=== PATIENT | male | born 1975 ===

== ENCOUNTER 2016-10-02 10:22 | Emergency (ER) | payer BC ==
[2016-10-02] MEDS ORDERED: Sodium Chloride 0.9% 1,000 ML IV ONE (11:18)
--- NOTE | 2016-10-02 11:18 | C.PDOC ---
History Of Present Illness 40 year old patient presents to the ED complaining of fever, persistent cough, and congestion for the past 2 days. Patient also complains of occasional shortness of breath. Patient has been taking Albuterol and Robitussin without relief. The symptoms persisted which prompted the visit. Patient denies nausea, vomiting, abdominal pain or chest pain. Time Seen by Provider: 10/02/16 10:58 Chief Complaint (Nursing): Flu-like Symptoms History Per: Patient History/Exam Limitations: no limitations Onset/Duration Of Symptoms: Days (2) Sick Contacts (Context): None Associated Symptoms: Cough Severity: Mild Pain Scale Rating Of: 3 Recent travel outside of the [place]: No Past Medical History Reviewed: Historical Data, Nursing Documentation, Vital Signs Vital Signs: Last Vital Signs Temp 98.2 F 10/02/16 13:07 Pulse 92 H 10/02/16 13:07 Resp 20 10/02/16 13:07 BP 148/89 10/02/16 13:07 Pulse Ox 98 10/02/16 14:26 - Medical History PMH: HTN Family History: States: Unknown Family Hx - Social History Hx Alcohol Use: No Hx Substance Use: No - Immunization History Hx Tetanus Toxoid Vaccination: No Hx Influenza Vaccination: Yes Hx Pneumococcal Vaccination: No Review Of Systems Except As Marked, All Systems Reviewed And Found Negative. Constitutional: Positive for: Fever Cardiovascular: Negative for: Chest Pain Respiratory: Positive for: Cough, Shortness of Breath (occasional), Other ( congestion) Gastrointestinal: Negative for: Nausea, Vomiting, Abdominal Pain Physical Exam - Physical Exam Appears: Non-toxic, No Acute Distress Skin: Warm, Dry Head: Atraumatic, Normacephalic Eye(s): bilateral: Normal Inspection, PERRL, EOMI Nose: Normal Oral Mucosa: Moist Throat: Normal, No Erythema, No Exudate Neck: Normal ROM, Supple Chest: Symmetrical Cardiovascular: Rhythm Regular Respiratory: No Accessory Muscle Use, No Rales, No Rhonchi, Wheezing (scattered) , Other (persistent cough) Gastrointestinal/Abdominal: Soft, No Tenderness Back: Normal Inspection, No CVA Tenderness Extremity: Normal ROM Neurological/Psych: Oriented x3, Normal Speech, Normal Cognition Gait: Steady ED Course And Treatment - Laboratory Results Result Diagrams: 10/02/16 11:40 10/02/16 11:40 O2 Sat by Pulse Oximetry: 98 (RA) Pulse Ox Interpretation: Normal Progress Note: Plan: -EKG. -Labs. -Solu-Medrol, Duoneb, IV fluids. -- Reassess and disposition. Reassessment: Patient is resting comfortably with no wheezing, chest pain, or retractions. Oxygen saturation is 98%. Patient is alert and oriented x 3. Patient was advised to follow up with physician in 1-2 days. Return if symptoms worsen. Disposition - Disposition Disposition: HOME/ ROUTINE Disposition Time: 12:53 Condition: GOOD Additional Instructions: Follow up with your primary medical doctor or clinic in 2-5 days for further evaluation. Take medications as prescribed. Return to the emergency department at any time if symptoms persist or worsen. Prescriptions: Albuterol 0.083% [Albuterol 0.083% Inhal Monika (2.5 mg/3 ml) UD] 2.5 mg IH Q6 PRN #30 neb PRN Reason: Shortness Of Breath Guaifenesin/Dextromethorphan [Diabetic Tussin] 10 ml PO Q6 PRN #1 bottle PRN Reason: Cough Oseltamivir Phosphate [Tamiflu] 75 mg PO BID #10 capsule predniSONE [Prednisone] 40 mg PO DAILY #8 tab Instructions: Influenza (ED) - Clinical Impression Clinical Impression: Influenza, Bronchitis - PA / [employer] / Resident Statement MD/DO has reviewed & agrees with the documentation as recorded. - Scribe Statement The provider has reviewed the documentation as recorded by the Scribe Kyra Lake All medical record entries made by the Scribe were at my direction and personally dictated by me. I have reviewed the chart and agree that the record accurately reflects my personal performance of the history, physical exam, medical decision making, and the department course for this patient. I have also personally directed, reviewed, and agree with the discharge instructions and disposition.
[2016-10-02] MEDS ORDERED: Albuterol-Ipratrop 3 mg / 0.5 (3 ml) UD INH STA (11:20)
[2016-10-02] MEDS ORDERED: Sodium Chloride 0.9% 1,000 ML ONE (11:26)
[2016-10-02] MEDS ORDERED: Albuterol-Ipratrop 3 mg / 0.5 (3 ml) UD ONE (11:26)
[2016-10-02 11:49] LABS: BASO % 0.4 % (0.0-2.0); EOS % 1.1 % (0.0-4.0); HEMATOCRIT 40.3 % (35.0-51.0); LYMPH # 0.9 K/uL (1.0-4.3); LYMPH % 25.8 % (20.0-40.0); MEAN CORPUSCULAR HGB CONC 33.5 g/dL (33.0-37.0); MEAN PLATELET VOLUME 10.3 fL (7.2-11.7); MONO # 0.4 K/uL (0.0-0.8); NRBC % 0.1 % (0.0-2.0); RED CELL DISTRIBUTION WIDTH 12.7 % (11.5-14.5); WHITE BLOOD COUNT 3.5 K/uL (4.8-10.8)
[2016-10-02 11:57] LABS: CHLORIDE 96 mmol/L (98-107); SODIUM 133 mmol/L (132-148)
[2016-10-02 11:58] LABS: POTASSIUM 3.9 mmol/L (3.6-5.2)
[2016-10-02 12:00] LABS: ALB/GLOB RATIO 1.1 (1.0-2.1); ALKALINE PHOSPHATASE 55 U/L (38-126); ALT/SGPT 42 U/L (21-72); AST/SGOT 32 U/L (17-59); BILIRUBIN,TOTAL 1.1 mg/dL (0.2-1.3); BLOOD UREA NITROGEN 9 mg/dL (9-20); CARBON DIOXIDE 24 mmol/L (22-30); GFR AFRICAN-AMERICAN > 60; GLUCOSE,RANDOM 258 mg/dL (75-110); MEAN CELL VOLUME 83.5 fL (80.0-94.0); TOTAL PROTEIN 7.2 g/dL (6.3-8.3)
[2016-10-02 12:01] LABS: CALCIUM 8.5 mg/dl (8.6-10.4)
[2016-10-02 13:08] VITALS: BP 148/89; PULSE 92; RESP 20; TEMP 98.2
[2016-10-02 14:22] VITALS: O2SAT 98
--- NOTE | 2016-10-02 16:38 | RAD ---
HISTORY: SOB COMPARISON: No prior. TECHNIQUE: Chest PA and lateral FINDINGS: LUNGS: No active pulmonary disease. PLEURA: No significant pleural effusion identified. No pneumothorax apparent. CARDIOVASCULAR: Normal. OSSEOUS STRUCTURES: No significant abnormalities. VISUALIZED UPPER ABDOMEN: Normal. OTHER FINDINGS: None. IMPRESSION: No active disease.
--- NOTE | 2016-10-29 14:42 | CARD ---
APPROVED REPORT EKG Measurement Heart [id number] <Conclusion> Sinus tachycardia Possible Left atrial enlargement Borderline ECG
== END 2016-10-02 13:08 | disposition home or self-care (01) ==
LOC: C.ER 10:22
DX: J11.1 Influenza due to unidentified influenza virus with other respiratory manifestations (principal)
CPT/HCPCS: 71020; 80053; 85025; 87804; 93005; 94150; 94640; 96361; 96374; 99284; J2930; J7040

== ENCOUNTER 2016-10-13 01:38 | Emergency (ER) | payer BC ==
[2016-10-13] MEDS ORDERED: Promethazine/Cod 6.25mg-10mg/5ml Syr UD PO STA (03:12)
[2016-10-13] MEDS ORDERED: Dexamethasone 10 MG in Dextrose 5% In Water 50 ML IM ONE (03:12)
[2016-10-13] MEDS ORDERED: Dexamethasone 4 mg/1 ml IM STA (03:15)
[2016-10-13] MEDS ORDERED: Dexamethasone 4 mg/1 ml ONE (03:20)
[2016-10-13] MEDS ORDERED: Promethazine/Cod 6.25mg-10mg/5ml Syr UD ONE (03:21)
[2016-10-13 05:02] VITALS: BP 140/89; PULSE 109; RESP 16; TEMP 98.4; O2SAT 97
--- NOTE | 2016-10-13 10:43 | RAD ---
HISTORY: cough COMPARISON: 10/02/2016 TECHNIQUE: Chest PA and lateral FINDINGS: LUNGS: Mild venous congestion. Right hilar prominence. Elevated right hemidiaphragm. PLEURA: No significant pleural effusion identified. No pneumothorax apparent. CARDIOVASCULAR: Normal. OSSEOUS STRUCTURES: No significant abnormalities. VISUALIZED UPPER ABDOMEN: Normal. OTHER FINDINGS: None. IMPRESSION: Mild venous congestion. Right hilar prominence. Elevated right hemidiaphragm.
== END 2016-10-13 05:02 | disposition home or self-care (01) ==
LOC: C.ER 01:38
DX: J45.909 Unspecified asthma, uncomplicated (principal)
CPT/HCPCS: 71020; 96372; 99281; J1100; J1885

== ENCOUNTER 2016-10-14 10:11 | Inpatient (IN) | payer BC ==
[2016-10-14 10:55] LABS: CHLORIDE 94 mmol/L (98-107); SODIUM 135 mmol/L (132-148)
[2016-10-14 10:57] LABS: BASO % 0.1 % (0.0-2.0); EOS % 0.1 % (0.0-4.0); HEMATOCRIT 40.6 % (35.0-51.0); LYMPH # 1.2 K/uL (1.0-4.3); LYMPH % 5.9 % (20.0-40.0); MEAN CORPUSCULAR HEMOGLOBIN 27.4 pg (27.0-31.0); MEAN CORPUSCULAR HGB CONC 31.9 g/dL (33.0-37.0); MONO # 1.3 K/uL (0.0-0.8); MONO % 6.1 % (0.0-10.0); RED CELL DISTRIBUTION WIDTH 12.7 % (11.5-14.5); WHITE BLOOD COUNT 21.2 K/uL (4.8-10.8)
[2016-10-14 10:58] LABS: ALB/GLOB RATIO 1.2 (1.0-2.1); ALKALINE PHOSPHATASE 80 U/L (38-126); AST/SGOT 35 U/L (17-59); BILIRUBIN,TOTAL 1.3 mg/dL (0.2-1.3); BLOOD UREA NITROGEN 18 mg/dL (9-20); CARBON DIOXIDE 23 mmol/L (22-30); GFR AFRICAN-AMERICAN > 60; MEAN CELL VOLUME 85.9 fL (80.0-94.0); PLATELET COUNT 281 K/uL (130-400); TOTAL PROTEIN 8.5 g/dL (6.3-8.3)
[2016-10-14 10:59] LABS: ALT/SGPT 13 U/L (21-72); CALCIUM 9.3 mg/dl (8.6-10.4)
--- NOTE | 2016-10-14 11:04 | RAD ---
PROCEDURE: CHEST RADIOGRAPH, 1 VIEW HISTORY: SOB COMPARISON: Comparison made with prior study 10/13/2016. FINDINGS: LUNGS: Poor inspiration with low lung volumes, crowded bronchovascular markings and mild bibasilar atelectasis. Elevation right hemidiaphragm possibly due to eventration. PLEURA: No pneumothorax or pleural fluid seen. CARDIOVASCULAR: Heart appears enlarged likely due to poor inspiration as well. . OSSEOUS STRUCTURES: No significant abnormalities. VISUALIZED UPPER ABDOMEN: Normal. OTHER FINDINGS: None. IMPRESSION: Poor inspiration with low lung volumes, crowded bronchovascular markings and mild bibasilar atelectasis. Elevation right hemidiaphragm possibly due to eventration.
[2016-10-14 11:09] LABS: NEUTROPHIL 89 % (50-75); TOTAL CELLS COUNTED 100
[2016-10-14 11:11] LABS: LARGE PLATELETS PRESENT
[2016-10-14 11:13] LABS: GLUCOSE,RANDOM 525 mg/dL (75-110)
--- NOTE | 2016-10-14 11:15 | C.PDOC ---
History Of Present Illness 40 y/o male presents to the ED complaining of right sided chest pain, diaphoresis, and dry cough or three days. He admits to increased thirst but denies fever, nausea, vomiting, or other complaints. Patient notes history of similar symptoms for which he was seen here a couple of days ago and discharged home. Chief Complaint (Nursing): Chest Pain History Per: Patient History/Exam Limitations: no limitations Onset/Duration Of Symptoms: Days (3), Persistent Current Symptoms Are (Timing): Still Present Quality: Sharp Recent travel outside of the [place]: No Past Medical History Reviewed: Historical Data, Nursing Documentation, Vital Signs Vital Signs: Last Vital Signs Temp 98.2 F 10/14/16 17:52 Pulse 115 H 10/14/16 17:52 Resp 20 10/14/16 17:52 BP 151/101 H 10/14/16 17:52 Pulse Ox 97 10/14/16 17:52 - Medical History PMH: HTN Surgical History: No Surg Hx Family History: States: Unknown Family Hx - Social History Hx Tobacco Use: No Hx Alcohol Use: No Hx Substance Use: No - Immunization History Hx Tetanus Toxoid Vaccination: No Hx Influenza Vaccination: Yes Hx Pneumococcal Vaccination: No Review Of Systems Except As Marked, All Systems Reviewed And Found Negative. Constitutional: Positive for: Sweats, Other (increased thirst). Negative for: Fever Cardiovascular: Positive for: Chest Pain Respiratory: Positive for: Cough. Negative for: Sputum Gastrointestinal: Negative for: Nausea, Vomiting Physical Exam - Physical Exam Appears: Non-toxic, Other (in mild to moderate distress) Skin: Normal Color, Warm, Diaphoretic Head: Atraumatic, Normacephalic Eye(s): bilateral: Normal Inspection, PERRL Ear(s): Bilateral: Normal Nose: Normal Oral Mucosa: Moist Throat: Normal, No Erythema, No Exudate Neck: Normal ROM, Supple Chest: Symmetrical, No Tenderness Cardiovascular: Rhythm Regular, Other (tachycardic) Respiratory: Normal Breath Sounds, No Rales, No Rhonchi, No Wheezing Gastrointestinal/Abdominal: Normal Exam, Soft, No Tenderness Back: CVA Tenderness (right) Extremity: Normal ROM, No Swelling Neurological/Psych: Oriented x3, Normal Speech, Normal Cognition ED Course And Treatment - Laboratory Results Result Diagrams: 10/14/16 10:40 04/07/17 10:40 ECG: Interpreted By Me ECG Rhythm: Sinus Tachycardia Interpretation Of ECG: normal axis, normal intervals Rate From EC (bpm) O2 Sat by Pulse Oximetry: 95 (ra) Pulse Ox Interpretation: Normal - Other Rad Chest X-Ray X-Ray: Viewed By Me, Read By Radiologist (Osvaldo Ugalde MD) Interpretation: IMPRESSION: Poor inspiration with low lung volumes, crowded bronchovascular markings and mild bibasilar atelectasis. Elevation right hemidiaphragm possibly due to eventration. - CT Scan/US CTA Chest Other Rad Studies (CT/US): Read By Radiologist (Connor Amaya MD), Radiology Report Reviewed CT/US Interpretation: FINDINGS: PULMONARY ARTERIES: Technically limited examination. No large central pulmonary embolus. No lobar embolus appreciated. Unable to adequately evaluate segmental and subsegmental pulmonary artery branches on the basis of this examination. AORTA: No acute findings. No thoracic aortic aneurysm. LUNGS: Right lower lobe consolidation. Possible pneumonia. Dependent pleural thickening right lower lobe. No pulmonary opacity seen elsewhere. PLEURAL SPACES: Trace right pleural effusion versus posterior pleural thickening. HEART: Unremarkable. No cardiomegaly. No significant pericardial effusion. LYMPH NODES: Mild right hilar lymphadenopathy. No mediastinal lymphadenopathy. Unremarkable left hilum. BONES, CHEST WALL: Unremarkable. No fracture or destructive lesion. OTHER FINDINGS: Unremarkable. IMPRESSION: Technically limited examination. No large central pulmonary embolus. Unable to evaluate segmental and subsegmental pulmonary artery branches. Right lower lobe infiltrate. Trace right pleural effusion versus dependent pleural thickening. Mild right hilar lymphadenopathy. Stop airway or for the tail to the heel or is CT Abd/Pelvis Other Rad Studies (CT/US): Read By Radiologist (Osvaldo Ugalde MD), Radiology Report Reviewed CT/US Interpretation: FINDINGS: LOWER THORAX: There is a rounded -elliptical shaped opacity in the posterolateral medial aspect right lung base consistent with atelectasis and/or pneumonia. There may be a tiny punctate calcific density posterior and adjacent to this opacity or along the diaphragmatic surface Slight elevation right hemidiaphragm. Punctate calcific densities seen. LIVER: Liver is mildly enlarged measuring approximately 21.2 cm in CC dimension. . No obvious hepatic mass or collection. . GALLBLADDER AND BILE DUCTS: Gallbladder is incompletely distended which may account for thick- walled appearance. No obvious intraluminal gallbladder calculi. PANCREAS: The visualized portions of the pancreas appear unremarkable. SPLEEN: The spleen is mildly enlarged measuring approximately 14.8 cm in AP dimension. No splenic mass collection or calcification. ADRENALS: No obvious adrenal lesions. KIDNEYS AND URETERS: Kidneys exhibit symmetric size. No evidence of nephrolithiasis or hydronephrosis. Suspect small cyst posterior aspect upper/ midpole right kidney measuring approximately 2 cm. BLADDER: The urinary bladder is physiologically distended. No evidence of intraluminal urinary bladder calculi. REPRODUCTIVE: Prostate gland appears unremarkable. Minor calcification of the vas deferens. APPENDIX: Normal-appearing appendix best seen on coronal series 601, image number [id number]. Visualized loops of small bowel exhibit normal contour and caliber. No evidence of acute mechanical small bowel obstruction. BOWEL: Evaluation of the bowel is limited due to the lack of oral contrast material. The stomach is distended with food debris liquid and air. Visualized loops of small bowel exhibit normal contour and caliber. No evidence of acute mechanical small bowel obstruction. Stool and air seen throughout the colon however most pronounced within the cecum and ascending colon suggesting mild fecal retention/ constipation. . No evidence of abnormal mural wall thickening. PERITONEUM: Unremarkable. No fluid collection. No free air. Small fat containing umbilical hernia. LYMPH NODES: Unremarkable. No enlarged lymph nodes. VASCULATURE: Unremarkable. No aortic aneurysm. BONES: Minor multilevel degenerative spondylosis of the lower thoracic and lumbar spine. No acute compression fractures. OTHER FINDINGS: None. IMPRESSION: Right lower lobe atelectasis and or infiltrate. Hepatosplenomegaly. Small cyst left kidney as described. No evidence of nephrolithiasis Medical Decision Making Medical Decision Making: Plan: * EKG * Labs * CXR * CTA Chest * CT Abd/Pelvis * Aspirin, Ativan, Toradol, Zithromax, Rocephin, Insulin, IV Fluids Case discussed with Dr. Karla Lake who will admit to the patient for hyperglycemia and community acquired pneumonia. Disposition - Disposition Disposition Time: 15:00 Condition: STABLE - Clinical Impression Clinical Impression: Pneumonia - Scribe Statement The provider has reviewed the documentation as recorded by the Scribe (Gaby Barfield) Provider Attestation: All medical record entries made by the Scribe were at my direction and personally dictated by me. I have reviewed the chart and agree that the record accurately reflects my personal performance of the history, physical exam, medical decision making, and the department course for this patient. I have also personally directed, reviewed, and agree with the discharge instructions and disposition.
[2016-10-14] MEDS ORDERED: (Novolin R) Insulin Human Regular 100 units/ml vial IV STA ×2 (12:29→14:18)
[2016-10-14] MEDS ORDERED: (Novolin R) Insulin Human Regular 100 units/ml vial ONE ×2 (12:50→15:05)
--- NOTE | 2016-10-14 12:55 | CT ---
PROCEDURE: CT abdomen pelvis dated 10/14/2016 HISTORY: It flank pain. COMPARISON: No prior study available for comparison. TECHNIQUE: Contiguous axial images of the abdomen and pelvis. Oral contrast was administered. No IV contrast given. Coronal and Sagittal reformats generated. Radiation dose: Total exam DLP = 1281.01 mGy-cm. This CT exam was performed using one or more of the following dose reduction techniques: Automated exposure control, adjustment of the mA and/or kV according to patient size, and/or use of iterative reconstruction technique. FINDINGS: LOWER THORAX: There is a rounded -elliptical shaped opacity in the posterolateral medial aspect right lung base consistent with atelectasis and/or pneumonia. There may be a tiny punctate calcific density posterior and adjacent to this opacity or along the diaphragmatic surface Slight elevation right hemidiaphragm. Punctate calcific densities seen LIVER: Liver is mildly enlarged measuring approximately 21.2 cm in CC dimension. . No obvious hepatic mass or collection. . GALLBLADDER AND BILE DUCTS: Gallbladder is incompletely distended which may account for thick-walled appearance. No obvious intraluminal gallbladder calculi. PANCREAS: The visualized portions of the pancreas appear unremarkable. SPLEEN: The spleen is mildly enlarged measuring approximately 14.8 cm in AP dimension. No splenic mass collection or calcification. ADRENALS: No obvious adrenal lesions. KIDNEYS AND URETERS: Kidneys exhibit symmetric size. No evidence of nephrolithiasis or hydronephrosis. Suspect small cyst posterior aspect upper/ midpole right kidney measuring approximately 2 cm. BLADDER: The urinary bladder is physiologically distended. No evidence of intraluminal urinary bladder calculi. REPRODUCTIVE: Prostate gland appears unremarkable. Minor calcification of the vas deferens. APPENDIX: Normal-appearing appendix best seen on coronal series 601, image number [id number]. Visualized loops of small bowel exhibit normal contour and caliber. No evidence of acute mechanical small bowel obstruction. BOWEL: Evaluation of the bowel is limited due to the lack of oral contrast material. The stomach is distended with food debris liquid and air. Visualized loops of small bowel exhibit normal contour and caliber. No evidence of acute mechanical small bowel obstruction. Stool and air seen throughout the colon however most pronounced within the cecum and ascending colon suggesting mild fecal retention/ constipation. . No evidence of abnormal mural wall thickening. PERITONEUM: Unremarkable. No fluid collection. No free air. Small fat containing umbilical hernia. LYMPH NODES: Unremarkable. No enlarged lymph nodes. VASCULATURE: Unremarkable. No aortic aneurysm. BONES: Minor multilevel degenerative spondylosis of the lower thoracic and lumbar spine. No acute compression fractures. OTHER FINDINGS: None. IMPRESSION: Right lower lobe atelectasis and or infiltrate. Hepatosplenomegaly. Small cyst left kidney as described. No evidence of nephrolithiasis
[2016-10-14] MEDS ORDERED: Iodixanol 320 MG/ML 100 ML BOTTLE IV ONE (13:02)
[2016-10-14 13:50] LABS: ABG ALLEN TEST PO; DRAW SITE RRA
[2016-10-14] MEDS ORDERED: Sodium Chloride 0.9% 1,000 ML IV ONE ×2 (14:18→15:11)
[2016-10-14] MEDS ORDERED: cefTRIAXone IV 1 gm in Dextros 50 ML IVPB ONE ×2 (15:11→15:22)
[2016-10-14] MEDS ORDERED: Azithromycin 500 MG in Sodium Chloride 0.9% 250 ML IVPB STA (15:11)
[2016-10-14] MEDS ORDERED: Azithromycin 500mg/250ML NS 250 ML IVPB ONE (15:22)
[2016-10-14] MEDS ORDERED: Albuterol 0.083% Inhal Sol (2.5 mg/3 mL) UD IH PRN (18:50)
[2016-10-14] MEDS ORDERED: Enoxaparin 40 mg Syringe SC ONE (18:51)
--- NOTE | 2016-10-14 18:54 | CP.PCM.HP ---
History of Present Illness - History of Present Illness History of Present Illness: 40 years old male patient with past medical history of hypertension presents to the emergency department complaining of chest pain, cough, increased perspiration since lst 3 days. patient had similar history of chest pain few aris=ys back. No fever nausea vomiting no palpitation, shortness of breath, limb swelling in Emergency department EKG i shows sinus tachycardia. Started on Zithromax IV fluids aspirin Present on Admission - Present on Admission Any Indicators Present on Admission: No Past Patient History - Infectious Disease Hx of Infectious Diseases: None - Past Social History Smoking Status: Never Smoked - CARDIAC Hx Hypertension: Yes - ENDOCRINE/METABOLIC Hx Diabetes Mellitus Type 2: Yes - PSYCHIATRIC Hx Substance Use: No - SURGICAL HISTORY Other/Comment: I /d right big toe - ANESTHESIA Hx Anesthesia: Yes Meds Allergies/Adverse Reactions: Allergies Allergy/AdvReac Type Severity Reaction Status Date / Time No Known Allergies Allergy Verified 12/08/16 12:22 Results - Vital Signs Recent Vital Signs: Last Vital Signs Temp 98.2 F 10/14/16 17:52 Pulse 115 H 10/14/16 17:52 Resp 20 10/14/16 17:52 BP 151/101 H 10/14/16 17:52 Pulse Ox 95 10/14/16 18:50 - Labs Result Diagrams: 10/19/16 11:20 10/19/16 11:20 Labs: Laboratory Results - last 24 hr 10/14/16 16:15 POC Glucose (mg/dL) 347 H Assessment & Plan (1) Ankle sprain Status: Acute (2) Bronchitis Status: Acute (3) Dyspnea Status: Acute (4) Encounter for postoperative wound care Status: Acute (5) Hyponatremia Status: Acute (6) Influenza Status: Acute (7) Influenza Status: Acute (8) Pneumonia Status: Acute (9) Prophylactic measure Status: Acute (10) Respiratory distress Status: Acute (11) Anemia Status: Chronic (12) Diabetes 1.5, managed as type 2 Status: Chronic (13) Diabetes mellitus Status: Chronic (14) HTN (hypertension) Status: Chronic (15) Hyperglycemia Status: Chronic (16) Pneumonia Status: Suspected (17) Bilateral lower extremity edema Status: Resolved (18) Diarrhea Status: Resolved (19) Empyema Status: Resolved (20) Pleural effusion on right Status: Resolved (21) Pre-procedural cardiovascular examination Status: Resolved (22) Tachycardia Status: Resolved - Assessment and Plan (Free Text) Plan: asp protonix lovenox ivf yemi moore consulation dr. nanci sarmiento other medas per record
[2016-10-14] MEDS: Sodium Chloride 0.9% 1,000 ML IV SCH (19:25)
[2016-10-14] MEDS: Albuterol-Ipratrop 3 mg / 0.5 (3 ml) UD INH SCH (19:28)
[2016-10-14] MEDS: cefTRIAXone IV 1 gm in Dextros 50 ML IVPB SCH (21:37)
[2016-10-14] MEDS: (Novolog) Insulin Aspart, Recombinant 100 u/ml 10 ml vial SC SCH (22:29)
--- NOTE | 2016-10-14 23:14 | CP.PCM.CON ---
History of Present Illness - History of Present Illness History of Present Illness: 40 year old with no sig PMH admitted through the ED with CP, pleuretic cough, new onset of DM, observe treatment for pneumonia Review of Systems - Review of Systems Systems not reviewed;Unavailable: Respiratory Distress - Constitutional Constitutional: Anorexia, Weakness - EENT Eyes: absent: Discharge Ears: absent: Ear Discharge, Dizziness Nose/Mouth/Throat: Nasal Congestion - Cardiovascular Cardiovascular: Diaphoresis. absent: Acrocyanosis, Chest Pain, Leg Edema, Palpitations, Syncope - Respiratory Respiratory: Cough, Dyspnea, Wheezing. absent: Hemoptysis - Gastrointestinal Gastrointestinal: absent: Abdominal Pain, Diarrhea, Hematochezia, Vomiting - Genitourinary Genitourinary: absent: Change in Urinary Stream Past Patient History - Infectious Disease Hx of Infectious Diseases: None - Past Medical History & Family History Past Medical History?: Yes - Past Social History Smoking Status: Never Smoked - CARDIAC Hx Hypertension: Yes - PULMONARY Hx Asthma: Yes - ENDOCRINE/METABOLIC Hx Diabetes Mellitus Type 2: Yes - MUSCULOSKELETAL/RHEUMATOLOGICAL Hx Falls: Yes - PSYCHIATRIC Hx Substance Use: No - SURGICAL HISTORY Other/Comment: I /d right big toe - ANESTHESIA Hx Anesthesia: Yes Meds Allergies/Adverse Reactions: Allergies Allergy/AdvReac Type Severity Reaction Status Date / Time No Known Allergies Allergy Verified 10/14/16 10:15 - Medications Medications: Current Medications Albuterol Sulfate (Albuterol 0.083% Inhal Monika (2.5 Mg/3 Ml) Ud) 2.5 mg IH Q6 PRN PRN Reason: Shortness of Breath Albuterol/Ipratropium (Duoneb 3 Mg/0.5 Mg (3 Ml) Ud) 3 ml INH RQ6 [facility] Last Admin: 10/14/16 19:28 Dose: 3 ml Aspirin (Aspirin) 325 mg PO DAILY [facility] Benzonatate (Tessalon Perles) 100 mg PO TID [facility] Home Med (Linagliptin [Tradjenta]) 1 tab PO DAILY [facility] Azithromycin 500 mg/ Sodium (Chloride) 250 mls @ 250 mls/hr IVPB DAILY [facility] Ceftriaxone Sodium (Rocephin Iv 1 Gm Duplex) 50 mls @ 100 mls/hr IVPB Q24H [facility] Last Admin: 10/14/16 21:37 Dose: 100 mls/hr Sodium Chloride (Sodium Chloride 0.9%) 1,000 mls @ 100 mls/hr IV .Q10H [facility] Last Admin: 10/14/16 19:25 Dose: 100 mls/hr Ibuprofen (Motrin Tab) 600 mg PO Q6H [facility] Last Admin: 10/14/16 19:05 Dose: 600 mg Insulin Aspart (Novolog) 0 unit SC ACHS [facility] PRN Reason: Protocol Last Admin: 10/14/16 22:29 Dose: 2 unit Lisinopril (Zestril) 10 mg PO DAILY [facility] Loratadine (Claritin) 10 mg PO DAILY [facility] Metformin HCl (Glucophage) 1,000 mg PO DAILY [facility] Pantoprazole Sodium (Protonix Ec Tab) 40 mg PO DAILY [facility] Pneumococcal Polyvalent Vaccine (Pneumovax 23 Vaccine) 0.5 ml IM .ONCE ONE Stop: 10/17/16 10:01 Physical Exam - Head Exam Head Exam: ATRAUMATIC - Eye Exam Eye Exam: EOMI - ENT Exam ENT Exam: Mucous Membranes Moist - Neck Exam Neck exam: Negative for: Lymphadenopathy, Thyromegaly - Respiratory Exam Respiratory Exam: Decreased Breath Sounds, Prolonged Expiratory Phase, Rhonchi, Wheezes. absent: Rales - Cardiovascular Exam Cardiovascular Exam: REGULAR RHYTHM. absent: Systolic Murmur - GI/Abdominal Exam GI & Abdominal Exam: Normal Bowel Sounds. absent: Organomegaly - Rectal Exam Rectal Exam: Deferred - Extremities Exam Extremities exam: Positive for: normal capillary refill. Negative for: calf tenderness - Neurological Exam Neurological exam: Alert, Oriented x3 - Psychiatric Exam Psychiatric exam: Normal Mood - Skin Skin Exam: Dry Results - Vital Signs Recent Vital Signs: Last Vital Signs Temp 98.2 F 10/14/16 17:52 Pulse 112 H 10/14/16 20:30 Resp 20 10/14/16 17:52 BP 151/101 H 10/14/16 17:52 Pulse Ox 95 10/14/16 20:30 - Labs Result Diagrams: 10/17/16 06:04 10/17/16 06:04 Labs: Laboratory Results - last 24 hr 10/14/16 10/14/16 16:15 21:04 POC Glucose (mg/dL) 347 H 308 H Assessment & Plan (1) Diabetes mellitus Status: Acute Comment: on insulin (2) Bronchitis Status: Acute Comment: acute bronchospasm f/u with pulmonary (3) Influenza Status: Acute
[2016-10-15] MEDS: Albuterol-Ipratrop 3 mg / 0.5 (3 ml) UD INH SCH ×4 (01:41→20:00)
[2016-10-15] MEDS ORDERED: Oxycodone/Acetaminophen 5/325 mg Tab PO ONE (03:20)
[2016-10-15] MEDS: Sodium Chloride 0.9% 1,000 ML IV SCH ×3 (06:07→19:35)
[2016-10-15] MEDS: (Novolog) Insulin Aspart, Recombinant 100 u/ml 10 ml vial SC SCH ×4 (09:30→21:38)
[2016-10-15] MEDS: Pantoprazole 40 mg EC Tab PO SCH (09:33)
[2016-10-15] MEDS: Azithromycin 500 MG in Sodium Chloride 0.9% 250 ML IVPB SCH (09:55)
[2016-10-15] MEDS ORDERED: CETIRIZINE HCL 10 MG PO SCH (10:00)
[2016-10-15] MEDS ORDERED: Home Med 1 UNIT (Linagliptin [Tradjenta] 1 TAB) PO SCH (10:00)
[2016-10-15] MEDS ORDERED: (Novolog) Insulin Aspart, Recombinant 100 u/ml 10 ml vial SC SCH ×2 (11:30→16:30)
[2016-10-15] MEDS: MethylPREDNISolone 40 mg Vial IVP SCH ×2 (14:00→21:33)
--- NOTE | 2016-10-15 14:40 | CP.PCM.PN ---
<[place] - Last Filed: 10/15/16 14:40> Subjective - Date & Time of Evaluation Date of Evaluation: 10/15/16 Time of Evaluation: 10:40 - Subjective Subjective: clinically same Objective - Vital Signs/Intake and Output Vital Signs (last 24 hours): Temp Pulse Resp BP Pulse Ox 98.1 F 108 H 20 185/109 H 92 L 10/15/16 07:56 10/15/16 07:59 10/15/16 07:56 10/15/16 07:56 10/15/16 07:56 Intake and Output: 10/15/16 10/15/16 06:59 18:59 Intake Total 1040 Balance 1040 - Medications Medications: Current Medications Albuterol Sulfate (Albuterol 0.083% Inhal Monika (2.5 Mg/3 Ml) Ud) 2.5 mg IH Q6 PRN PRN Reason: Shortness of Breath Albuterol/Ipratropium (Duoneb 3 Mg/0.5 Mg (3 Ml) Ud) 3 ml INH RQ6 [facility] Last Admin: 10/15/16 13:06 Dose: 3 ml Aspirin (Aspirin) 325 mg PO DAILY [facility] Last Admin: 10/15/16 09:41 Dose: 325 mg Benzonatate (Tessalon Perles) 100 mg PO TID [facility] Last Admin: 10/15/16 14:00 Dose: 100 mg Home Med (Linagliptin [Tradjenta]) 1 tab PO DAILY [facility] Azithromycin 500 mg/ Sodium (Chloride) 250 mls @ 250 mls/hr IVPB DAILY [facility] Last Admin: 10/15/16 09:55 Dose: 250 mls/hr Ceftriaxone Sodium (Rocephin Iv 1 Gm Duplex) 50 mls @ 100 mls/hr IVPB Q24H [facility] Last Admin: 10/14/16 21:37 Dose: 100 mls/hr Sodium Chloride (Sodium Chloride 0.9%) 1,000 mls @ 100 mls/hr IV .Q10H [facility] Last Admin: 10/15/16 06:07 Dose: 100 mls/hr Ibuprofen (Motrin Tab) 600 mg PO Q6H [facility] Last Admin: 10/15/16 13:00 Dose: Not Given Insulin Aspart (Novolog) 0 unit SC ACHS [facility] PRN Reason: Protocol Last Admin: 10/15/16 11:30 Dose: 4 unit Insulin Aspart (Novolog) 10 unit SC AC [facility] Insulin Glargine (Lantus) 20 unit SC [facility] Ketorolac Tromethamine (Toradol) 30 mg IVP Q6 PRN PRN Reason: Pain, moderate (4-7) Last Admin: 10/15/16 09:49 Dose: 30 mg Lisinopril (Zestril) 10 mg PO DAILY [facility] Last Admin: 10/15/16 10:00 Dose: 10 mg Loratadine (Claritin) 10 mg PO DAILY [facility] Last Admin: 10/15/16 09:34 Dose: 10 mg Metformin HCl (Glucophage) 1,000 mg PO DAILY [facility] Last Admin: 10/15/16 09:33 Dose: 1,000 mg Methylprednisolone (Solu-Medrol) 60 mg IVP Q8 [facility] Last Admin: 10/15/16 14:00 Dose: 60 mg Pantoprazole Sodium (Protonix Ec Tab) 40 mg PO DAILY [facility] Last Admin: 10/15/16 09:33 Dose: 40 mg Pneumococcal Polyvalent Vaccine (Pneumovax 23 Vaccine) 0.5 ml IM .ONCE ONE Stop: 10/17/16 10:01 - Constitutional Appears: Well - Head Exam Head Exam: ATRAUMATIC, NORMAL INSPECTION, NORMOCEPHALIC - Eye Exam Eye Exam: EOMI, Normal appearance, PERRL Pupil Exam: NORMAL ACCOMODATION, PERRL - ENT Exam ENT Exam: Mucous Membranes Moist, Normal Exam - Neck Exam Neck Exam: Full ROM, Normal Inspection. absent: Lymphadenopathy - Respiratory Exam Respiratory Exam: Decreased Breath Sounds - Cardiovascular Exam Cardiovascular Exam: REGULAR RHYTHM, +S1, +S2 - GI/Abdominal Exam GI & Abdominal Exam: Soft, Diminished Bowel Sounds - Rectal Exam Rectal Exam: Deferred <Melissa Mustafa - Last Filed: 10/15/16 16:07> Objective - Vital Signs/Intake and Output Vital Signs (last 24 hours): Temp Pulse Resp BP Pulse Ox 98.1 F 108 H 20 185/109 H 92 L 10/15/16 07:56 10/15/16 07:59 10/15/16 07:56 10/15/16 07:56 10/15/16 07:56 Intake and Output: 10/15/16 10/15/16 06:59 18:59 Intake Total 1040 400 Balance 1040 400 - Medications Medications: Current Medications Albuterol Sulfate (Albuterol 0.083% Inhal Monika (2.5 Mg/3 Ml) Ud) 2.5 mg IH Q6 PRN PRN Reason: Shortness of Breath Albuterol/Ipratropium (Duoneb 3 Mg/0.5 Mg (3 Ml) Ud) 3 ml INH RQ6 [facility] Last Admin: 10/15/16 13:06 Dose: 3 ml Aspirin (Aspirin) 325 mg PO DAILY [facility] Last Admin: 10/15/16 09:41 Dose: 325 mg Benzonatate (Tessalon Perles) 100 mg PO TID [facility] Last Admin: 10/15/16 14:00 Dose: 100 mg Home Med (Linagliptin [Tradjenta]) 1 tab PO DAILY [facility] Azithromycin 500 mg/ Sodium (Chloride) 250 mls @ 250 mls/hr IVPB DAILY [facility] Last Admin: 10/15/16 09:55 Dose: 250 mls/hr Ceftriaxone Sodium (Rocephin Iv 1 Gm Duplex) 50 mls @ 100 mls/hr IVPB Q24H [facility] Last Admin: 10/14/16 21:37 Dose: 100 mls/hr Sodium Chloride (Sodium Chloride 0.9%) 1,000 mls @ 100 mls/hr IV .Q10H [facility] Last Admin: 10/15/16 06:07 Dose: 100 mls/hr Ibuprofen (Motrin Tab) 600 mg PO Q6H [facility] Last Admin: 10/15/16 13:00 Dose: Not Given Insulin Aspart (Novolog) 0 unit SC ACHS [facility] PRN Reason: Protocol Last Admin: 10/15/16 11:30 Dose: 4 unit Insulin Aspart (Novolog) 10 unit SC AC [facility] Insulin Glargine (Lantus) 20 unit SC HS [facility] Ketorolac Tromethamine (Toradol) 30 mg IVP Q6 PRN PRN Reason: Pain, moderate (4-7) Last Admin: 10/15/16 09:49 Dose: 30 mg Lisinopril (Zestril) 10 mg PO DAILY [facility] Last Admin: 10/15/16 10:00 Dose: 10 mg Loratadine (Claritin) 10 mg PO DAILY [facility] Last Admin: 10/15/16 09:34 Dose: 10 mg Metformin HCl (Glucophage) 1,000 mg PO DAILY [facility] Last Admin: 10/15/16 09:33 Dose: 1,000 mg Methylprednisolone (Solu-Medrol) 60 mg IVP Q8 [facility] Last Admin: 10/15/16 14:00 Dose: 60 mg Pantoprazole Sodium (Protonix Ec Tab) 40 mg PO DAILY [facility] Last Admin: 10/15/16 09:33 Dose: 40 mg Pneumococcal Polyvalent Vaccine (Pneumovax 23 Vaccine) 0.5 ml IM .ONCE ONE Stop: 10/17/16 10:01
--- NOTE | 2016-10-15 16:08 | CP.PCM.PN ---
Subjective - Date & Time of Evaluation Date of Evaluation: 10/15/16 Time of Evaluation: 14:00 - Subjective Subjective: Less shortness of breath, glucose down to 300 on Lantus, observe Objective - Vital Signs/Intake and Output Vital Signs (last 24 hours): Temp Pulse Resp BP Pulse Ox 98.1 F 108 H 20 185/109 H 92 L 10/15/16 07:56 10/15/16 07:59 10/15/16 07:56 10/15/16 07:56 10/15/16 07:56 Intake and Output: 10/15/16 10/15/16 06:59 18:59 Intake Total 1040 400 Balance 1040 400 - Medications Medications: Current Medications Albuterol Sulfate (Albuterol 0.083% Inhal Monika (2.5 Mg/3 Ml) Ud) 2.5 mg IH Q6 PRN PRN Reason: Shortness of Breath Albuterol/Ipratropium (Duoneb 3 Mg/0.5 Mg (3 Ml) Ud) 3 ml INH RQ6 [facility] Last Admin: 10/15/16 13:06 Dose: 3 ml Aspirin (Aspirin) 325 mg PO DAILY [facility] Last Admin: 10/15/16 09:41 Dose: 325 mg Benzonatate (Tessalon Perles) 100 mg PO TID [facility] Last Admin: 10/15/16 14:00 Dose: 100 mg Home Med (Linagliptin [Tradjenta]) 1 tab PO DAILY [facility] Azithromycin 500 mg/ Sodium (Chloride) 250 mls @ 250 mls/hr IVPB DAILY [facility] Last Admin: 10/15/16 09:55 Dose: 250 mls/hr Ceftriaxone Sodium (Rocephin Iv 1 Gm Duplex) 50 mls @ 100 mls/hr IVPB Q24H [facility] Last Admin: 10/14/16 21:37 Dose: 100 mls/hr Sodium Chloride (Sodium Chloride 0.9%) 1,000 mls @ 100 mls/hr IV .Q10H [facility] Last Admin: 10/15/16 06:07 Dose: 100 mls/hr Ibuprofen (Motrin Tab) 600 mg PO Q6H [facility] Last Admin: 10/15/16 13:00 Dose: Not Given Insulin Aspart (Novolog) 0 unit SC ACHS [facility] PRN Reason: Protocol Last Admin: 10/15/16 11:30 Dose: 4 unit Insulin Aspart (Novolog) 10 unit SC AC [facility] Insulin Glargine (Lantus) 20 unit SC [facility] Ketorolac Tromethamine (Toradol) 30 mg IVP Q6 PRN PRN Reason: Pain, moderate (4-7) Last Admin: 10/15/16 09:49 Dose: 30 mg Lisinopril (Zestril) 10 mg PO DAILY [facility] Last Admin: 10/15/16 10:00 Dose: 10 mg Loratadine (Claritin) 10 mg PO DAILY [facility] Last Admin: 10/15/16 09:34 Dose: 10 mg Metformin HCl (Glucophage) 1,000 mg PO DAILY [facility] Last Admin: 10/15/16 09:33 Dose: 1,000 mg Methylprednisolone (Solu-Medrol) 60 mg IVP Q8 [facility] Last Admin: 10/15/16 14:00 Dose: 60 mg Pantoprazole Sodium (Protonix Ec Tab) 40 mg PO DAILY [facility] Last Admin: 10/15/16 09:33 Dose: 40 mg Pneumococcal Polyvalent Vaccine (Pneumovax 23 Vaccine) 0.5 ml IM .ONCE ONE Stop: 10/17/16 10:01 - Constitutional Appears: Non-toxic - Head Exam Head Exam: ATRAUMATIC - Eye Exam Eye Exam: EOMI - ENT Exam ENT Exam: Mucous Membranes Moist - Neck Exam Neck Exam: absent: Lymphadenopathy, Thyromegaly - Respiratory Exam Respiratory Exam: Prolonged Expiratory Phase, Wheezes. absent: Rales - Cardiovascular Exam Cardiovascular Exam: REGULAR RHYTHM. absent: Murmur - GI/Abdominal Exam GI & Abdominal Exam: Normal Bowel Sounds. absent: Organomegaly - Rectal Exam Rectal Exam: Deferred - Extremities Exam Extremities Exam: Normal Capillary Refill. absent: Calf Tenderness - Neurological Exam Neurological Exam: Alert, Oriented x3 - Psychiatric Exam Psychiatric exam: Normal Mood - Skin Skin Exam: Dry Assessment and Plan (1) Diabetes mellitus Status: Acute (2) Bronchitis Status: Acute (3) Influenza Status: Acute
[2016-10-15] MEDS: cefTRIAXone IV 1 gm in Dextros 50 ML IVPB SCH (19:41)
--- NOTE | 2016-10-15 20:23 | CP.PCM.CON ---
History of Present Illness - History of Present Illness History of Present Illness: REASON FOR CONSULTATION: chest pain and cough 40 y/o male presents to the ED complaining of right sided chest pain, diaphoresis, and dry cough or three days. He admits to increased thirst but denies fever, nausea, vomiting, or other complaints. CAT scan done in the emergency room showed no pulmonary embolism but right lung infiltrate. Patient started on IV antibiotics. Chest pain is mostly on deep inspiration.Denies any radiation to the arm or back. Review of Systems - Review of Systems All systems: reviewed and no additional remarkable complaints except (cough and chest pain on deep inspiration) Past Patient History - Infectious Disease Hx of Infectious Diseases: None - Past Medical History & Family History Past Medical History?: Yes - Past Social History Smoking Status: Never Smoked - CARDIAC Hx Hypertension: Yes - PULMONARY Hx Asthma: Yes - ENDOCRINE/METABOLIC Hx Diabetes Mellitus Type 2: Yes - MUSCULOSKELETAL/RHEUMATOLOGICAL Hx Falls: Yes - PSYCHIATRIC Hx Substance Use: No - SURGICAL HISTORY Other/Comment: I /d right big toe - ANESTHESIA Hx Anesthesia: Yes Meds Allergies/Adverse Reactions: Allergies Allergy/AdvReac Type Severity Reaction Status Date / Time No Known Allergies Allergy Verified 10/14/16 10:15 - Medications Medications: Current Medications Albuterol Sulfate (Albuterol 0.083% Inhal Monika (2.5 Mg/3 Ml) Ud) 2.5 mg IH Q6 PRN PRN Reason: Shortness of Breath Albuterol/Ipratropium (Duoneb 3 Mg/0.5 Mg (3 Ml) Ud) 3 ml INH RQ6 [facility] Last Admin: 10/15/16 20:00 Dose: 3 ml Aspirin (Aspirin) 325 mg PO DAILY [facility] Last Admin: 10/15/16 09:41 Dose: 325 mg Benzonatate (Tessalon Perles) 100 mg PO TID [facility] Last Admin: 10/15/16 17:26 Dose: 100 mg Home Med (Linagliptin [Tradjenta]) 1 tab PO DAILY [facility] Azithromycin 500 mg/ Sodium (Chloride) 250 mls @ 250 mls/hr IVPB DAILY [facility] Last Admin: 10/15/16 09:55 Dose: 250 mls/hr Ceftriaxone Sodium (Rocephin Iv 1 Gm Duplex) 50 mls @ 100 mls/hr IVPB Q24H [facility] Last Admin: 10/15/16 19:41 Dose: 100 mls/hr Sodium Chloride (Sodium Chloride 0.9%) 1,000 mls @ 100 mls/hr IV .Q10H [facility] Last Admin: 10/15/16 19:35 Dose: 100 mls/hr Ibuprofen (Motrin Tab) 600 mg PO Q6H [facility] Last Admin: 10/15/16 19:42 Dose: 600 mg Insulin Aspart (Novolog) 0 unit SC ACHS [facility] PRN Reason: Protocol Last Admin: 10/15/16 17:23 Dose: 4 unit Insulin Aspart (Novolog) 10 unit SC AC [facility] Last Admin: 10/15/16 17:25 Dose: 10 unit Insulin Glargine (Lantus) 20 unit SC HS [facility] Ketorolac Tromethamine (Toradol) 30 mg IVP Q6 PRN PRN Reason: Pain, moderate (4-7) Last Admin: 10/15/16 09:49 Dose: 30 mg Lisinopril (Zestril) 10 mg PO DAILY [facility] Last Admin: 10/15/16 10:00 Dose: 10 mg Loratadine (Claritin) 10 mg PO DAILY [facility] Last Admin: 10/15/16 09:34 Dose: 10 mg Metformin HCl (Glucophage) 1,000 mg PO DAILY [facility] Last Admin: 10/15/16 09:33 Dose: 1,000 mg Methylprednisolone (Solu-Medrol) 60 mg IVP Q8 [facility] Last Admin: 10/15/16 14:00 Dose: 60 mg Pantoprazole Sodium (Protonix Ec Tab) 40 mg PO DAILY [facility] Last Admin: 10/15/16 09:33 Dose: 40 mg Pneumococcal Polyvalent Vaccine (Pneumovax 23 Vaccine) 0.5 ml IM .ONCE ONE Stop: 10/17/16 10:01 Physical Exam - Constitutional Appears: No Acute Distress - Head Exam Head Exam: ATRAUMATIC, NORMOCEPHALIC - Eye Exam Eye Exam: Normal appearance - ENT Exam ENT Exam: Mucous Membranes Moist - Neck Exam Neck exam: Positive for: Normal Inspection - Respiratory Exam Respiratory Exam: Rales Additional comments: crepts in the right base - Cardiovascular Exam Cardiovascular Exam: REGULAR RHYTHM - GI/Abdominal Exam GI & Abdominal Exam: Normal Bowel Sounds, Soft - Extremities Exam Extremities exam: Positive for: normal inspection - Neurological Exam Neurological exam: Alert, Oriented x3 Results - Vital Signs Recent Vital Signs: Last Vital Signs Temp 97.4 F L 10/15/16 15:00 Pulse 108 H 10/15/16 16:21 Resp 22 10/15/16 15:00 BP 163/99 H 10/15/16 15:00 Pulse Ox 93 L 10/15/16 15:00 - Labs Result Diagrams: 10/17/16 06:04 10/17/16 06:04 Labs: Laboratory Results - last 24 hr 10/14/16 10/15/16 10/15/16 21:04 02:19 07:03 POC Glucose (mg/dL) 308 H 338 H 276 H 10/15/16 10/15/16 11:24 16:00 POC Glucose (mg/dL) 328 H 325 H Assessment & Plan (1) Pneumonia Status: Acute Comment: 40-year-old male presented with cough and chest tightness for the past few days CT chest consistent with right lung infiltrate. Continue Rocephin and Zithromax, continue nebulizer treatment, follow up culture and sensitivity, antitussives and follow-up chest x-ray
[2016-10-15] MEDS ORDERED: (Lantus) Insulin Glargine, Recombinant SC SCH (22:00)
[2016-10-16] MEDS: Sodium Chloride 0.9% 1,000 ML IV SCH ×3 (01:00→21:29)
[2016-10-16] MEDS: Albuterol-Ipratrop 3 mg / 0.5 (3 ml) UD INH SCH ×4 (01:10→20:48)
[2016-10-16 06:05] LABS: BASO % 0.1 % (0.0-2.0); HEMATOCRIT 38.2 % (35.0-51.0); LYMPH # 0.6 K/uL (1.0-4.3); LYMPH % 4.1 % (20.0-40.0); MEAN CELL VOLUME 85.9 fL (80.0-94.0); MEAN CORPUSCULAR HEMOGLOBIN 27.5 pg (27.0-31.0); MEAN PLATELET VOLUME 10.5 fL (7.2-11.7); MONO # 0.5 K/uL (0.0-0.8); MONO % 3.4 % (0.0-10.0); PLATELET COUNT 220 K/uL (130-400); RED CELL DISTRIBUTION WIDTH 13.1 % (11.5-14.5); WHITE BLOOD COUNT 14.7 K/uL (4.8-10.8)
[2016-10-16 06:13] LABS: CHLORIDE 95 mmol/L (98-107); SODIUM 138 mmol/L (132-148)
[2016-10-16 06:14] LABS: POTASSIUM 4.4 mmol/L (3.6-5.2)
[2016-10-16] MEDS: MethylPREDNISolone 40 mg Vial IVP SCH ×3 (06:15→21:20)
[2016-10-16 06:16] LABS: ALKALINE PHOSPHATASE 83 U/L (38-126); AST/SGOT 15 U/L (17-59); BLOOD UREA NITROGEN 14 mg/dL (9-20); CARBON DIOXIDE 22 mmol/L (22-30); CHOLESTEROL 208 mg/dL (0-199); GFR AFRICAN-AMERICAN > 60; GLUCOSE,RANDOM 353 mg/dL (75-110); TOTAL PROTEIN 7.2 g/dL (6.3-8.3)
[2016-10-16 06:17] LABS: ALT/SGPT 16 U/L (21-72); CALCIUM 8.6 mg/dl (8.6-10.4)
[2016-10-16 06:47] LABS: THYROID STIMULATING HORMONE 0.38 mIU/L (0.46-4.68)
[2016-10-16] MEDS: (Novolog) Insulin Aspart, Recombinant 100 u/ml 10 ml vial SC SCH ×7 (08:00→22:16)
[2016-10-16 08:25] LABS: NEUTROPHIL 94 % (50-75); TOTAL CELLS COUNTED 100
[2016-10-16 08:26] LABS: LARGE PLATELETS PRESENT
[2016-10-16] MEDS: Pantoprazole 40 mg EC Tab PO SCH (09:26)
[2016-10-16] MEDS: Azithromycin 500 MG in Sodium Chloride 0.9% 250 ML IVPB SCH (10:28)
--- NOTE | 2016-10-16 15:19 | CP.PCM.PN ---
Subjective - Date & Time of Evaluation Date of Evaluation: 10/16/16 Time of Evaluation: 07:00 - Subjective Subjective: zfebrile Objective - Vital Signs/Intake and Output Vital Signs (last 24 hours): Temp Pulse Resp BP Pulse Ox 98.3 F 111 H 20 162/90 H 95 10/16/16 08:28 10/16/16 08:28 10/16/16 08:28 10/16/16 08:28 10/16/16 08:28 Intake and Output: 10/16/16 10/16/16 06:59 18:59 Intake Total 2450 Balance 2450 - Medications Medications: Current Medications Albuterol Sulfate (Albuterol 0.083% Inhal Monika (2.5 Mg/3 Ml) Ud) 2.5 mg IH Q6 PRN PRN Reason: Shortness of Breath Albuterol/Ipratropium (Duoneb 3 Mg/0.5 Mg (3 Ml) Ud) 3 ml INH RQ6 [facility] Last Admin: 10/16/16 13:37 Dose: 3 ml Aspirin (Aspirin) 325 mg PO DAILY [facility] Last Admin: 10/16/16 09:26 Dose: 325 mg Benzonatate (Tessalon Perles) 100 mg PO TID [facility] Last Admin: 10/16/16 13:30 Dose: 100 mg Azithromycin 500 mg/ Sodium (Chloride) 250 mls @ 250 mls/hr IVPB DAILY [facility] Last Admin: 10/16/16 10:28 Dose: 250 mls/hr Ceftriaxone Sodium (Rocephin Iv 1 Gm Duplex) 50 mls @ 100 mls/hr IVPB Q24H [facility] Last Admin: 10/15/16 19:41 Dose: 100 mls/hr Sodium Chloride (Sodium Chloride 0.9%) 1,000 mls @ 100 mls/hr IV .Q10H [facility] Last Admin: 10/16/16 10:30 Dose: 100 mls/hr Ibuprofen (Motrin Tab) 600 mg PO Q6H [facility] Last Admin: 10/16/16 13:17 Dose: Not Given Insulin Aspart (Novolog) 0 unit SC ACHS [facility] PRN Reason: Protocol Last Admin: 10/16/16 11:43 Dose: 6 unit Insulin Aspart (Novolog) 14 unit SC AC [facility] Last Admin: 10/16/16 11:44 Dose: 14 unit Insulin Glargine (Lantus) [address] [facility] Ketorolac Tromethamine (Toradol) 30 mg IVP Q6 PRN PRN Reason: Pain, moderate (4-7) Last Admin: 10/15/16 09:49 Dose: 30 mg Lisinopril (Zestril) 10 mg PO DAILY [facility] Last Admin: 10/16/16 09:26 Dose: 10 mg Loratadine (Claritin) 10 mg PO DAILY [facility] Last Admin: 10/16/16 09:26 Dose: 10 mg Metformin HCl (Glucophage) 1,000 mg PO DAILY [facility] Last Admin: 10/16/16 09:26 Dose: 1,000 mg Methylprednisolone (Solu-Medrol) 60 mg IVP Q8 [facility] Last Admin: 10/16/16 13:17 Dose: 60 mg Pantoprazole Sodium (Protonix Ec Tab) 40 mg PO DAILY [facility] Last Admin: 10/16/16 09:26 Dose: 40 mg Pneumococcal Polyvalent Vaccine (Pneumovax 23 Vaccine) 0.5 ml IM .ONCE ONE Stop: 10/17/16 10:01 Sitagliptin Phosphate (Januvia) 50 mg PO DAILY [facility] Last Admin: 10/16/16 11:43 Dose: 50 mg - Labs Labs: 10/16/16 05:57 10/16/16 05:57 - Constitutional Appears: Well - Head Exam Head Exam: ATRAUMATIC, NORMAL INSPECTION, NORMOCEPHALIC - Eye Exam Eye Exam: EOMI, Normal appearance, PERRL Pupil Exam: NORMAL ACCOMODATION, PERRL - ENT Exam ENT Exam: Mucous Membranes Moist, Normal Exam - Neck Exam Neck Exam: Full ROM, Normal Inspection. absent: Lymphadenopathy - Respiratory Exam Respiratory Exam: Clear to Ausculation Bilateral, NORMAL BREATHING PATTERN - GI/Abdominal Exam GI & Abdominal Exam: Distended, Soft, Normal Bowel Sounds. absent: Tenderness - Rectal Exam Rectal Exam: Deferred - Neurological Exam Neurological Exam: Oriented x3 Assessment and Plan - Assessment and Plan (Free Text) Plan: protnix lvoenox dr. oscar lópez solumedrol iv ceftriazone
--- NOTE | 2016-10-16 15:20 | PN ---
DATE: 10/16/2016 ROOM: 350 This is a 40-year-old male with recent uncontrolled type 2 insulin-requiring diabetes, currently bein g managed here with IV antibiotics for an acute pneumonia and is also being followed closely for meta bolic management. His glycemic levels are fluctuating, but improved, and the latest glucose levels h ave ranged from 308-347 mg/dL. His latest chemistry showed a BUN of 18, sodium 135, potassium 5.0, c hloride 94, CO2 23, glucose 525 and creatinine 0.7. 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 He is clearly insulin requiring at this time as noted with the supervening hyperglycem ic accelerations, although there is a big contributory factor of the increased insulin resistance fro m the intercurrent infection and pneumonia, which can contribute to the aforementioned glycemic fluct uations. PLAN OF MANAGEMENT: As discussed with the patient and the staff, we will modify his current basal an d bolus insulin regimen and increase the NovoLog to 10 units subQ t.i.d. before meals to start today as ordered. We will also increase the Lantus to 20 units subQ at bedtime daily to start tonight. We will titrate incrementally as indicated to optimize metabolic control. We will continue also the lo w-dose correction scale using NovoLog insulin as given. We will titrate incrementally as indicated t o optimize metabolic control. We will follow and advise accordingly. Brianda Kramer MD cc: [id number] TT: 10/16/2016 15:19:18 Confirmation # [id number] Dictation # [id number] en
[2016-10-16] MEDS: cefTRIAXone IV 1 gm in Dextros 50 ML IVPB SCH (20:00)
[2016-10-16] MEDS ORDERED: (Lantus) Insulin Glargine, Recombinant SC SCH (22:00)
[2016-10-16] MEDS: (Lantus) Insulin Glargine, Recombinant SC SCH (22:15)
[2016-10-17] MEDS: Sodium Chloride 0.9% 1,000 ML IV SCH ×2 (00:26→07:45)
[2016-10-17] MEDS: Albuterol-Ipratrop 3 mg / 0.5 (3 ml) UD INH SCH ×4 (02:00→19:46)
[2016-10-17 06:16] LABS: HEMATOCRIT 35.3 % (35.0-51.0); LYMPH # 0.5 K/uL (1.0-4.3); LYMPH % 2.9 % (20.0-40.0); MEAN CELL VOLUME 84.4 fL (80.0-94.0); MEAN CORPUSCULAR HEMOGLOBIN 27.6 pg (27.0-31.0); MEAN CORPUSCULAR HGB CONC 32.7 g/dL (33.0-37.0); MEAN PLATELET VOLUME 10.8 fL (7.2-11.7); MONO # 0.8 K/uL (0.0-0.8); MONO % 5.4 % (0.0-10.0); PLATELET COUNT 248 K/uL (130-400); RED CELL DISTRIBUTION WIDTH 13.1 % (11.5-14.5); WHITE BLOOD COUNT 15.5 K/uL (4.8-10.8)
[2016-10-17] MEDS: MethylPREDNISolone 40 mg Vial IVP SCH ×3 (06:19→21:34)
[2016-10-17 06:32] LABS: CHLORIDE 93 mmol/L (98-107)
[2016-10-17 06:33] LABS: POTASSIUM 4.2 mmol/L (3.6-5.2); SODIUM 136 mmol/L (132-148)
[2016-10-17 06:35] LABS: ALB/GLOB RATIO 1.1 (1.0-2.1); AST/SGOT 12 U/L (17-59); BILIRUBIN,TOTAL 0.9 mg/dL (0.2-1.3); CARBON DIOXIDE 22 mmol/L (22-30); GFR AFRICAN-AMERICAN > 60; TOTAL PROTEIN 6.9 g/dL (6.3-8.3)
[2016-10-17 06:36] LABS: ALKALINE PHOSPHATASE 79 U/L (38-126); ALT/SGPT 17 U/L (21-72); BLOOD UREA NITROGEN 19 mg/dL (9-20); CALCIUM 8.6 mg/dl (8.6-10.4); GLUCOSE,RANDOM 358 mg/dL (75-110)
--- NOTE | 2016-10-17 07:54 | CP.PCM.PN ---
<BolañosDominik H - Last Filed: 10/17/16 13:46> Subjective - Date & Time of Evaluation Date of Evaluation: 10/17/16 Time of Evaluation: 10:00 - Subjective Subjective: Dr. Lake service: Patient seen and examined in room. He reports coming to the ED for the past few days with sudden onset of sharp stabbing right sided chest pain that radiates to his back. He also says it is accomponied with sudden shortness of breath and cough. He denies fever, chills, nausea, vomiting, palpitations, diaphoresis, or headache. Patient was told recently he had the flu and was given treatment. Objective - Vital Signs/Intake and Output Vital Signs (last 24 hours): Temp Pulse Resp BP Pulse Ox 98 F 106 H 20 171/89 H 94 L 10/17/16 00:00 10/17/16 00:00 10/17/16 00:00 10/16/16 16:00 10/17/16 00:00 Intake and Output: 10/17/16 10/17/16 06:59 18:59 Intake Total 2450 Balance 2450 - Medications Medications: Current Medications Albuterol Sulfate (Albuterol 0.083% Inhal Monika (2.5 Mg/3 Ml) Ud) 2.5 mg IH Q6 PRN PRN Reason: Shortness of Breath Albuterol/Ipratropium (Duoneb 3 Mg/0.5 Mg (3 Ml) Ud) 3 ml INH RQ6 [facility] Last Admin: 10/17/16 07:50 Dose: 3 ml Aspirin (Aspirin) 325 mg PO DAILY [facility] Last Admin: 10/16/16 09:26 Dose: 325 mg Benzonatate (Tessalon Perles) 100 mg PO TID [facility] Last Admin: 10/16/16 17:05 Dose: 100 mg Azithromycin 500 mg/ Sodium (Chloride) 250 mls @ 250 mls/hr IVPB DAILY [facility] Last Admin: 10/16/16 10:28 Dose: 250 mls/hr Ceftriaxone Sodium (Rocephin Iv 1 Gm Duplex) 50 mls @ 100 mls/hr IVPB Q24H [facility] Last Admin: 10/16/16 20:00 Dose: 100 mls/hr Sodium Chloride (Sodium Chloride 0.9%) 1,000 mls @ 100 mls/hr IV .Q10H [facility] Last Admin: 10/17/16 07:45 Dose: Not Given Ibuprofen (Motrin Tab) 600 mg PO Q6H [facility] Last Admin: 10/17/16 07:47 Dose: Not Given Insulin Aspart (Novolog) 0 unit SC ACHS [facility] PRN Reason: Protocol Last Admin: 10/16/16 22:16 Dose: 3 unit Insulin Aspart (Novolog) 30 unit SC AC [facility] Insulin Glargine (Lantus) 50 unit SC HS [facility] Last Admin: 10/16/16 22:15 Dose: 50 units Ketorolac Tromethamine (Toradol) 30 mg IVP Q6 PRN PRN Reason: Pain, moderate (4-7) Last Admin: 10/17/16 01:15 Dose: 30 mg Lisinopril (Zestril) 10 mg PO DAILY [facility] Last Admin: 10/16/16 09:26 Dose: 10 mg Loratadine (Claritin) 10 mg PO DAILY [facility] Last Admin: 10/16/16 09:26 Dose: 10 mg Metformin HCl (Glucophage) 1,000 mg PO DAILY [facility] Last Admin: 10/16/16 09:26 Dose: 1,000 mg Methylprednisolone (Solu-Medrol) 60 mg IVP Q8 [facility] Last Admin: 10/17/16 06:19 Dose: 60 mg Pantoprazole Sodium (Protonix Ec Tab) 40 mg PO DAILY [facility] Last Admin: 10/16/16 09:26 Dose: 40 mg Pneumococcal Polyvalent Vaccine (Pneumovax 23 Vaccine) 0.5 ml IM .ONCE ONE Stop: 10/17/16 10:01 Sitagliptin Phosphate (Januvia) 50 mg PO DAILY [facility] Last Admin: 10/16/16 11:43 Dose: 50 mg - Labs Labs: 10/17/16 06:04 10/17/16 06:04 - Constitutional Appears: Non-toxic, No Acute Distress - Head Exam Head Exam: NORMAL INSPECTION - Eye Exam Eye Exam: Normal appearance Pupil Exam: NORMAL ACCOMODATION - Neck Exam Neck Exam: Normal Inspection - Respiratory Exam Respiratory Exam: Decreased Breath Sounds, Clear to Ausculation Bilateral. absent: Rales, Rhonchi, Wheezes - Cardiovascular Exam Cardiovascular Exam: REGULAR RHYTHM, RRR, +S1, +S2. absent: Gallop, Rubs - GI/Abdominal Exam GI & Abdominal Exam: Soft, Normal Bowel Sounds. absent: Tenderness - Extremities Exam Extremities Exam: Normal Inspection. absent: Calf Tenderness, Pedal Edema - Back Exam Back Exam: NORMAL INSPECTION - Psychiatric Exam Psychiatric exam: Normal Affect - Skin Skin Exam: Normal Color, Warm Assessment and Plan (1) Pneumonia Assessment & Plan: 2nd of IV Rocephin and Zithromax WBC is still high but that could be due ot the IV steroids, continue breathing treatment. CT angio negative for PE Blood cultures negative Dr. Andino consulted and Dr. Brooks consulted as well. Status: Acute (2) Diabetes mellitus Assessment & Plan: Patient has uncontrolled DM He is on Metformin 1000mg bid, Januvia, Lantus 50 units, Dr. Brianda Kramer is consulted. His hbg a1c is 11.4. Status: Acute (3) HTN (hypertension) Assessment & Plan: Patient is on Zestril 10mg, some of his htn could be due to pain and also IV fluids, D/C the iv fluids for now. Status: Chronic (4) Prophylactic measure Assessment & Plan: Protonix 40mg Hep 5000 units sc q8h Status: Acute <[place] S - Last Filed: 10/17/16 20:19> Objective - Vital Signs/Intake and Output Vital Signs (last 24 hours): Temp Pulse Resp BP Pulse Ox 97.6 F 131 H 22 164/99 H 94 L 10/17/16 15:00 10/17/16 16:19 10/17/16 15:00 10/17/16 15:00 10/17/16 15:00 Intake and Output: 10/17/16 10/18/16 18:59 06:59 Intake Total 850 Balance 850 - Medications Medications: Current Medications Albuterol Sulfate (Albuterol 0.083% Inhal Monika (2.5 Mg/3 Ml) Ud) 2.5 mg IH Q6 PRN PRN Reason: Shortness of Breath Albuterol/Ipratropium (Duoneb 3 Mg/0.5 Mg (3 Ml) Ud) 3 ml INH RQ6 [facility] Last Admin: 10/17/16 19:46 Dose: 3 ml Aspirin (Aspirin) 325 mg PO DAILY [facility] Last Admin: 10/17/16 10:16 Dose: 325 mg Benzonatate (Tessalon Perles) 100 mg PO TID [facility] Last Admin: 10/17/16 17:18 Dose: 100 mg Heparin Sodium (Porcine) (Heparin) 5,000 units SC Q8 [facility] Last Admin: 10/17/16 14:21 Dose: 5,000 units Azithromycin 500 mg/ Sodium (Chloride) 250 mls @ 250 mls/hr IVPB DAILY [facility] Last Admin: 10/17/16 10:56 Dose: 250 mls/hr Ceftriaxone Sodium (Rocephin Iv 1 Gm Duplex) 50 mls @ 100 mls/hr IVPB Q24H [facility] Last Admin: 10/17/16 19:45 Dose: 100 mls/hr Ibuprofen (Motrin Tab) 600 mg PO Q6H [facility] Last Admin: 10/17/16 19:43 Dose: Not Given Insulin Aspart (Novolog) 30 unit SC AC [facility] Last Admin: 10/17/16 16:45 Dose: 30 unit Insulin Aspart (Novolog) 0 unit SC ACHS [facility] PRN Reason: Protocol Last Admin: 10/17/16 16:46 Dose: 6 unit Insulin Glargine (Lantus) 50 unit SC HS [facility] Last Admin: 10/16/16 22:15 Dose: 50 units Lisinopril (Zestril) 10 mg PO DAILY [facility] Last Admin: 10/17/16 10:16 Dose: 10 mg Loratadine (Claritin) 10 mg PO DAILY [facility] Last Admin: 10/17/16 10:16 Dose: 10 mg Metformin HCl (Glucophage) 1,000 mg PO BIDCC [facility] Last Admin: 10/17/16 16:47 Dose: 1,000 mg Methylprednisolone (Solu-Medrol) 60 mg IVP Q8 [facility] Last Admin: 10/17/16 13:30 Dose: 60 mg Pantoprazole Sodium (Protonix Ec Tab) 40 mg PO DAILY [facility] Last Admin: 10/17/16 10:16 Dose: 40 mg Sitagliptin Phosphate (Januvia) 50 mg PO DAILY [facility] Last Admin: 10/17/16 10:16 Dose: 50 mg - Labs Labs: 10/17/16 06:04 10/17/16 06:04 Attending/Attestation - Attestation I have personally seen and examined this patient.: Yes I have fully participated in the care of the patient.: Yes I have reviewed all pertinent clinical information, including history, physical exam and plan: Yes Notes (Text): 10/17/16 20:18 case seen and discussed with staff and resident mx as ordered
[2016-10-17] MEDS: (Novolog) Insulin Aspart, Recombinant 100 u/ml 10 ml vial SC SCH ×7 (08:11→21:25)
[2016-10-17 08:15] LABS: NEUTROPHIL 91 % (50-75); TOTAL CELLS COUNTED 100
[2016-10-17] MEDS ORDERED: Benzocaine/Menthol (Cepacol) Lozenge MT STA (09:14)
--- NOTE | 2016-10-17 09:48 | CON ---
DATE: 10/15/2016 A 40-year-old male with known history of type 2 diabetes and hypertension, presenting here with gener alized body weakness, and has progressive shortness of breath, and has been evaluated for pneumonia a nd is now being followed because of persistent hyper evaluation thereof. PAST MEDICAL HISTORY: Type 2 diabetes currently on a combination of Tradjenta at 5 mg daily, with __ ___ at 1000 b.i.d. Portal hypertension and dyslipidemia. FAMILY HISTORY: . REVIEW OF SYSTEMS: for the past few days . PHYSICAL EXAMINATION: This is an obese male. is regular. Temperature 99, respirations . Height 6 , weight is 251. . No peripheral edema. Pulses are +2 bilaterally. LABORATORY WORK: Chemistry showed a BUN of 18, sodium 135, potassium 5.0, chloride 94, CO2 of 23, gl ucose 525, and creatinine 0.7. The glucose levels have ranged from 453-475 mg/dL. ASSESSMENT: This is a 40-year-old male with and start him on a more physiologic bolus insulin drug combination as ordered. ordered with using NovoLog insulin . . Will ___ __ thyroid studies , initiate diabetic education, , consult our nutritional counselin g and help also ___ to improve insulin resistance . Brianda Kramer MD cc: [id number] TT: 10/15/2016 11:27:34 Confirmation # [id number] Dictation # [id number]
[2016-10-17] MEDS ORDERED: Pneumococcal 23-Valent Vaccine IM ONE (10:00)
[2016-10-17] MEDS: Pantoprazole 40 mg EC Tab PO SCH (10:16)
[2016-10-17 10:19] LABS: PHOSPHOROUS 3.8 mg/dL (2.5-4.5)
[2016-10-17 10:20] LABS: MAGNESIUM 2.5 mg/dL (1.6-2.3)
[2016-10-17] MEDS: Azithromycin 500 MG in Sodium Chloride 0.9% 250 ML IVPB SCH (10:56)
[2016-10-17 12:51] LABS: RBC URINE < 1 /hpf (0-3); URINE BILIRUBIN NEGATIVE (NEGATIVE); URINE BLOOD NEGATIVE (NEGATIVE); URINE COLOR Straw (YELLOW); URINE GLUCOSE (UA) 3+ mg/dL (Normal); URINE KETONE 1+ mg/dL (NEGATIVE); URINE LEUKOCYTE ESTERASE NEG Leu/uL (Negative); URINE PROTEIN NEGATIVE (NEGATIVE); URINE UROBILINOGEN NORMAL mg/dL (0.2-1.0); WBC URINE 1 /hpf (0-5)
--- NOTE | 2016-10-17 13:00 | CP.PCM.PN ---
Subjective - Date & Time of Evaluation Date of Evaluation: 10/17/16 Time of Evaluation: 12:58 - Subjective Subjective: Pt was seen and examined at bedside, no acute distress, no acute events overnight. The pt reports to having some continued shortness of breath and cough , but reports that he feels better today. Denies fever, chills, nausea, vomiting , chest pain, headache, palpitations at this time. Objective - Vital Signs/Intake and Output Vital Signs (last 24 hours): Temp Pulse Resp BP Pulse Ox 98.6 F 131 H 20 167/93 H 93 L 10/17/16 08:00 10/17/16 08:00 10/17/16 08:00 10/17/16 08:00 10/17/16 08:00 Intake and Output: 10/17/16 10/17/16 06:59 18:59 Intake Total 2450 Balance 2450 - Medications Medications: Current Medications Albuterol Sulfate (Albuterol 0.083% Inhal Monika (2.5 Mg/3 Ml) Ud) 2.5 mg IH Q6 PRN PRN Reason: Shortness of Breath Albuterol/Ipratropium (Duoneb 3 Mg/0.5 Mg (3 Ml) Ud) 3 ml INH RQ6 [facility] Last Admin: 10/17/16 07:50 Dose: 3 ml Aspirin (Aspirin) 325 mg PO DAILY [facility] Last Admin: 10/17/16 10:16 Dose: 325 mg Benzonatate (Tessalon Perles) 100 mg PO TID [facility] Last Admin: 10/17/16 10:16 Dose: 100 mg Azithromycin 500 mg/ Sodium (Chloride) 250 mls @ 250 mls/hr IVPB DAILY [facility] Last Admin: 10/17/16 10:56 Dose: 250 mls/hr Ceftriaxone Sodium (Rocephin Iv 1 Gm Duplex) 50 mls @ 100 mls/hr IVPB Q24H [facility] Last Admin: 10/16/16 20:00 Dose: 100 mls/hr Ibuprofen (Motrin Tab) 600 mg PO Q6H [facility] Last Admin: 10/17/16 07:47 Dose: Not Given Insulin Aspart (Novolog) 30 unit SC AC [facility] Last Admin: 10/17/16 12:20 Dose: 30 unit Insulin Aspart (Novolog) 0 unit SC ACHS [facility] PRN Reason: Protocol Last Admin: 10/17/16 12:21 Dose: 8 unit Insulin Glargine (Lantus) 50 unit SC HS [facility] Last Admin: 10/16/16 22:15 Dose: 50 units Lisinopril (Zestril) 10 mg PO DAILY [facility] Last Admin: 10/17/16 10:16 Dose: 10 mg Loratadine (Claritin) 10 mg PO DAILY [facility] Last Admin: 10/17/16 10:16 Dose: 10 mg [facility] Methylprednisolone (Solu-Medrol) 60 mg IVP Q8 [facility] Last Admin: 10/17/16 06:19 Dose: 60 mg Pantoprazole Sodium (Protonix Ec Tab) 40 mg PO DAILY [facility] Last Admin: 10/17/16 10:16 Dose: 40 mg Sitagliptin Phosphate (Januvia) 50 mg PO DAILY [facility] Last Admin: 10/17/16 10:16 Dose: 50 mg - Labs Labs: 10/17/16 06:04 10/17/16 06:04 - Constitutional Appears: Well, Non-toxic, No Acute Distress - Head Exam Head Exam: ATRAUMATIC, NORMAL INSPECTION - Eye Exam Eye Exam: Normal appearance - Neck Exam Neck Exam: Normal Inspection - Respiratory Exam Respiratory Exam: Rales, NORMAL BREATHING PATTERN. absent: Chest Wall Tenderness - Cardiovascular Exam Cardiovascular Exam: +S1, +S2 - Neurological Exam Neurological Exam: Alert, Awake, Oriented x3 - Skin Skin Exam: Dry, Normal Color, Warm Assessment and Plan (1) Pneumonia Assessment & Plan: Repeat CXR Start medication for cough continue antibiotics continue recommendations from medicine team. Status: Acute
--- NOTE | 2016-10-17 13:09 | CP.PCM.PN ---
Subjective - Date & Time of Evaluation Date of Evaluation: 10/17/16 Time of Evaluation: 12:00 - Subjective Subjective: Improved clinically, still with shortness of breath, seen by pulmonary will follow Objective - Vital Signs/Intake and Output Vital Signs (last 24 hours): Temp Pulse Resp BP Pulse Ox 98.6 F 131 H 20 167/93 H 93 L 10/17/16 08:00 10/17/16 08:00 10/17/16 08:00 10/17/16 08:00 10/17/16 08:00 Intake and Output: 10/17/16 10/17/16 06:59 18:59 Intake Total 2450 Balance 2450 - Medications Medications: Current Medications Albuterol Sulfate (Albuterol 0.083% Inhal Monika (2.5 Mg/3 Ml) Ud) 2.5 mg IH Q6 PRN PRN Reason: Shortness of Breath Albuterol/Ipratropium (Duoneb 3 Mg/0.5 Mg (3 Ml) Ud) 3 ml INH RQ6 [facility] Last Admin: 10/17/16 07:50 Dose: 3 ml Aspirin (Aspirin) 325 mg PO DAILY [facility] Last Admin: 10/17/16 10:16 Dose: 325 mg Benzonatate (Tessalon Perles) 100 mg PO TID [facility] Last Admin: 10/17/16 10:16 Dose: 100 mg Azithromycin 500 mg/ Sodium (Chloride) 250 mls @ 250 mls/hr IVPB DAILY [facility] Last Admin: 10/17/16 10:56 Dose: 250 mls/hr Ceftriaxone Sodium (Rocephin Iv 1 Gm Duplex) 50 mls @ 100 mls/hr IVPB Q24H [facility] Last Admin: 10/16/16 20:00 Dose: 100 mls/hr Ibuprofen (Motrin Tab) 600 mg PO Q6H [facility] Last Admin: 10/17/16 07:47 Dose: Not Given Insulin Aspart (Novolog) 30 unit SC AC [facility] Last Admin: 10/17/16 12:20 Dose: 30 unit Insulin Aspart (Novolog) 0 unit SC ACHS [facility] PRN Reason: Protocol Last Admin: 10/17/16 12:21 Dose: 8 unit Insulin Glargine (Lantus) 50 unit SC HS [facility] Last Admin: 10/16/16 22:15 Dose: 50 units Lisinopril (Zestril) 10 mg PO DAILY [facility] Last Admin: 10/17/16 10:16 Dose: 10 mg Loratadine (Claritin) 10 mg PO DAILY [facility] Last Admin: 10/17/16 10:16 Dose: 10 mg Metformin HCl (Glucophage) 1,000 mg PO BIDCC [facility] Methylprednisolone (Solu-Medrol) 60 mg IVP Q8 [facility] Last Admin: 10/17/16 06:19 Dose: 60 mg Pantoprazole Sodium (Protonix Ec Tab) 40 mg PO DAILY [facility] Last Admin: 10/17/16 10:16 Dose: 40 mg Sitagliptin Phosphate (Januvia) 50 mg PO DAILY [facility] Last Admin: 10/17/16 10:16 Dose: 50 mg - Labs Labs: 10/17/16 06:04 10/17/16 06:04 - Constitutional Appears: Non-toxic - Head Exam Head Exam: ATRAUMATIC - Eye Exam Eye Exam: EOMI - ENT Exam ENT Exam: Mucous Membranes Moist - Neck Exam Neck Exam: absent: Lymphadenopathy, Thyromegaly - Respiratory Exam Respiratory Exam: Prolonged Expiratory Phase, Rhonchi. absent: Rales - Cardiovascular Exam Cardiovascular Exam: REGULAR RHYTHM. absent: Murmur - GI/Abdominal Exam GI & Abdominal Exam: Normal Bowel Sounds. absent: Organomegaly - Rectal Exam Rectal Exam: Deferred - Extremities Exam Extremities Exam: Full ROM, Normal Capillary Refill. absent: Calf Tenderness - Neurological Exam Neurological Exam: Alert, Oriented x3 - Psychiatric Exam Psychiatric exam: Normal Mood - Skin Skin Exam: Dry Assessment and Plan (1) Diabetes mellitus Status: Acute (2) Bronchitis Status: Acute (3) Influenza Status: Acute
--- NOTE | 2016-10-17 13:38 | CP.PCM.PN ---
Subjective - Date & Time of Evaluation Date of Evaluation: 10/17/16 Time of Evaluation: 10:00 - Subjective Subjective: clinixcally same stil mild sob but beter Objective - Vital Signs/Intake and Output Vital Signs (last 24 hours): Temp Pulse Resp BP Pulse Ox 98.6 F 131 H 20 167/93 H 93 L 10/17/16 08:00 10/17/16 08:00 10/17/16 08:00 10/17/16 08:00 10/17/16 08:00 Intake and Output: 10/17/16 10/17/16 06:59 18:59 Intake Total 2450 Balance 2450 - Medications Medications: Current Medications Albuterol Sulfate (Albuterol 0.083% Inhal Monika (2.5 Mg/3 Ml) Ud) 2.5 mg IH Q6 PRN PRN Reason: Shortness of Breath Albuterol/Ipratropium (Duoneb 3 Mg/0.5 Mg (3 Ml) Ud) 3 ml INH RQ6 [facility] Last Admin: 10/17/16 13:33 Dose: 3 ml Aspirin (Aspirin) 325 mg PO DAILY [facility] Last Admin: 10/17/16 10:16 Dose: 325 mg Benzonatate (Tessalon Perles) 100 mg PO TID [facility] Last Admin: 10/17/16 13:30 Dose: 100 mg Azithromycin 500 mg/ Sodium (Chloride) 250 mls @ 250 mls/hr IVPB DAILY [facility] Last Admin: 10/17/16 10:56 Dose: 250 mls/hr Ceftriaxone Sodium (Rocephin Iv 1 Gm Duplex) 50 mls @ 100 mls/hr IVPB Q24H [facility] Last Admin: 10/16/16 20:00 Dose: 100 mls/hr Ibuprofen (Motrin Tab) 600 mg PO Q6H [facility] Last Admin: 10/17/16 13:23 Dose: Not Given Insulin Aspart (Novolog) 30 unit SC AC [facility] Last Admin: 10/17/16 12:20 Dose: 30 unit Insulin Aspart (Novolog) 0 unit SC ACHS [facility] PRN Reason: Protocol Last Admin: 10/17/16 12:21 Dose: 8 unit Insulin Glargine (Lantus) 50 unit SC HS [facility] Last Admin: 10/16/16 22:15 Dose: 50 units Lisinopril (Zestril) 10 mg PO DAILY [facility] Last Admin: 10/17/16 10:16 Dose: 10 mg Loratadine (Claritin) 10 mg PO DAILY [facility] Last Admin: 10/17/16 10:16 Dose: 10 mg Metformin HCl (Glucophage) 1,000 mg PO BIDCC [facility] Methylprednisolone (Solu-Medrol) 60 mg IVP Q8 [facility] Last Admin: 10/17/16 13:30 Dose: 60 mg Pantoprazole Sodium (Protonix Ec Tab) 40 mg PO DAILY [facility] Last Admin: 10/17/16 10:16 Dose: 40 mg Sitagliptin Phosphate (Januvia) 50 mg PO DAILY [facility] Last Admin: 10/17/16 10:16 Dose: 50 mg - Labs Labs: 10/17/16 06:04 10/17/16 06:04 - Constitutional Appears: Well - Head Exam Head Exam: ATRAUMATIC, NORMAL INSPECTION, NORMOCEPHALIC - Eye Exam Eye Exam: EOMI, Normal appearance, PERRL Pupil Exam: NORMAL ACCOMODATION, PERRL - ENT Exam ENT Exam: Mucous Membranes Moist, Normal Exam - Neck Exam Neck Exam: Full ROM, Normal Inspection. absent: Lymphadenopathy - Respiratory Exam Respiratory Exam: Decreased Breath Sounds - Cardiovascular Exam Cardiovascular Exam: REGULAR RHYTHM, +S1, +S2 - GI/Abdominal Exam GI & Abdominal Exam: Soft, Diminished Bowel Sounds - Rectal Exam Rectal Exam: Deferred Assessment and Plan - Assessment and Plan (Free Text) Plan: iv antibiotic steroid bronchodialtor pulm cardio [place] same s ordered
--- NOTE | 2016-10-17 14:02 | PN ---
DATE: 10/17/2016 ROOM: 350 This is a 40-year-old male with recent uncontrolled type 2 insulin-requiring diabetes, presenting her e with acute pneumonia and apparently has a component of acute asthmatic bronchitis with respiratory insufficiency and persistent bronchorrhea and has been started also on IV steroid therapy with Solu-M edrol given as 60 mg every 8 hours as ordered. Marked hyperglycemic accelerations have supervened as noted and the latest glucose levels have ranged from 405-456 mg/dL. His chemistry showed a BUN of 14, sodium 138, potassium 4.4, chloride 95, CO2 2 2, glucose 353 and creatinine 0.6. His WBC has changed from 21 down to 14.7 as noted. ASSESSMENT: This is a 40-year-old male with uncontrolled and decompensated type 2 insulin-requiring diabetes with marked hyperglycemic accelerations, most likely precipitated by the intercurrent IV kate roid therapy, which as we know would cause marked insulin resistance and further impaired glucose rodger erance thereof. PLAN OF MANAGEMENT: We will modify his current basal and bolus insulin regimen with a much higher do sing to override the increased insulin resistance from the intercurrent IV steroid therapy as given. We will increase his Humalog to 30 units subQ t.i.d. before meals to start today. We will also incr ease the Lantus to 50 units subQ at bedtime daily to start tonight. We will titrate incrementally as indicated to optimize metabolic control. We will continue the IV hydration as ordered as he is stil l quite dehydrated as noted. We will follow. Brianda Kramer MD cc: [phone] TT: 10/17/2016 14:01:27 Confirmation # [id number] Dictation # [id number]
[2016-10-17] MEDS: cefTRIAXone IV 1 gm in Dextros 50 ML IVPB SCH (19:45)
[2016-10-17] MEDS: (Lantus) Insulin Glargine, Recombinant SC SCH (21:27)
[2016-10-17 23:45] VITALS: RESP 20
[2016-10-18] MEDS: Albuterol-Ipratrop 3 mg / 0.5 (3 ml) UD INH SCH ×4 (01:31→20:00)
[2016-10-18] MEDS: MethylPREDNISolone 40 mg Vial IVP SCH ×3 (05:23→21:32)
[2016-10-18 07:56] LABS: BASO % 0.2 % (0.0-2.0); HEMATOCRIT 35.5 % (35.0-51.0); LYMPH # 0.5 K/uL (1.0-4.3); LYMPH % 4.4 % (20.0-40.0); MEAN CELL VOLUME 84.6 fL (80.0-94.0); MEAN CORPUSCULAR HEMOGLOBIN 27.7 pg (27.0-31.0); MEAN CORPUSCULAR HGB CONC 32.7 g/dL (33.0-37.0); MEAN PLATELET VOLUME 10.6 fL (7.2-11.7); MONO # 0.7 K/uL (0.0-0.8); MONO % 5.8 % (0.0-10.0); NRBC % 0.4 % (0.0-2.0); PLATELET COUNT 259 K/uL (130-400); RED CELL DISTRIBUTION WIDTH 13.1 % (11.5-14.5); WHITE BLOOD COUNT 12.5 K/uL (4.8-10.8)
[2016-10-18 08:05] LABS: CHLORIDE 93 mmol/L (98-107); POTASSIUM 4.4 mmol/L (3.6-5.2); SODIUM 134 mmol/L (132-148)
[2016-10-18 08:07] LABS: ALKALINE PHOSPHATASE 71 U/L (38-126); ALT/SGPT 15 U/L (21-72); AST/SGOT 20 U/L (17-59); BILIRUBIN,TOTAL 0.8 mg/dL (0.2-1.3); BLOOD UREA NITROGEN 21 mg/dL (9-20); CARBON DIOXIDE 26 mmol/L (22-30); GFR AFRICAN-AMERICAN > 60
[2016-10-18 08:08] LABS: CALCIUM 8.6 mg/dl (8.6-10.4); GLUCOSE,RANDOM 310 mg/dL (75-110); MAGNESIUM 2.3 mg/dL (1.6-2.3); PHOSPHOROUS 3.8 mg/dL (2.5-4.5)
[2016-10-18] MEDS: (Novolog) Insulin Aspart, Recombinant 100 u/ml 10 ml vial SC SCH ×7 (08:43→21:55)
[2016-10-18 09:22] LABS: NEUTROPHIL 88 % (50-75); TOTAL CELLS COUNTED 100
[2016-10-18 09:23] LABS: LARGE PLATELETS PRESENT
--- NOTE | 2016-10-18 10:09 | CP.PCM.PN ---
Subjective - Date & Time of Evaluation Date of Evaluation: 10/18/16 Time of Evaluation: 09:40 - Subjective Subjective: clinically same Objective - Vital Signs/Intake and Output Vital Signs (last 24 hours): Temp Pulse Resp BP Pulse Ox 97.5 F L 100 H 20 158/99 H 97 10/18/16 07:51 10/18/16 07:51 10/18/16 07:51 10/18/16 07:51 10/18/16 07:51 Intake and Output: 10/18/16 10/18/16 06:59 18:59 Intake Total 241.5 Balance 241.5 - Medications Medications: Current Medications Albuterol Sulfate (Albuterol 0.083% Inhal Monika (2.5 Mg/3 Ml) Ud) 2.5 mg IH Q6 PRN PRN Reason: Shortness of Breath Albuterol/Ipratropium (Duoneb 3 Mg/0.5 Mg (3 Ml) Ud) 3 ml INH RQ6 [facility] Last Admin: 10/18/16 08:08 Dose: 3 ml Aspirin (Aspirin) 325 mg PO DAILY [facility] Last Admin: 10/17/16 10:16 Dose: 325 mg Benzonatate (Tessalon Perles) 100 mg PO TID [facility] Last Admin: 10/17/16 17:18 Dose: 100 mg Heparin Sodium (Porcine) (Heparin) 5,000 units SC Q8 [facility] Last Admin: 10/18/16 05:23 Dose: 5,000 units Azithromycin 500 mg/ Sodium (Chloride) 250 mls @ 250 mls/hr IVPB DAILY [facility] Last Admin: 10/17/16 10:56 Dose: 250 mls/hr Ceftriaxone Sodium (Rocephin Iv 1 Gm Duplex) 50 mls @ 100 mls/hr IVPB Q24H [facility] Last Admin: 10/17/16 19:45 Dose: 100 mls/hr Ibuprofen (Motrin Tab) 600 mg PO Q6H [facility] Last Admin: 10/18/16 07:01 Dose: Not Given Insulin Aspart (Novolog) 30 unit SC AC [facility] Last Admin: 10/18/16 08:43 Dose: 30 unit Insulin Aspart (Novolog) 0 unit SC ACHS [facility] PRN Reason: Protocol Last Admin: 10/18/16 08:43 Dose: 6 unit Insulin Glargine (Lantus) 50 unit SC HS [facility] Last Admin: 10/17/16 21:27 Dose: 50 units Lisinopril (Zestril) 10 mg PO DAILY [facility] Last Admin: 10/17/16 10:16 Dose: 10 mg Loratadine (Claritin) 10 mg PO DAILY [facility] Last Admin: 10/17/16 10:16 Dose: 10 mg Metformin HCl (Glucophage) 1,000 mg PO BIDCC [facility] Last Admin: 10/18/16 08:42 Dose: 1,000 mg Methylprednisolone (Solu-Medrol) 60 mg IVP Q8 [facility] Last Admin: 10/18/16 05:23 Dose: 60 mg Pantoprazole Sodium (Protonix Ec Tab) 40 mg PO DAILY [facility] Last Admin: 10/17/16 10:16 Dose: 40 mg Sitagliptin Phosphate (Januvia) 50 mg PO DAILY [facility] Last Admin: 10/17/16 10:16 Dose: 50 mg - Labs Labs: 10/18/16 07:37 10/18/16 07:37 - Constitutional Appears: Well - Head Exam Head Exam: ATRAUMATIC, NORMAL INSPECTION, NORMOCEPHALIC - Eye Exam Eye Exam: EOMI, Normal appearance, PERRL Pupil Exam: NORMAL ACCOMODATION, PERRL - ENT Exam ENT Exam: Mucous Membranes Moist, Normal Exam - Neck Exam Neck Exam: Full ROM, Normal Inspection. absent: Lymphadenopathy - Respiratory Exam Respiratory Exam: Decreased Breath Sounds - Cardiovascular Exam Cardiovascular Exam: REGULAR RHYTHM, +S1, +S2 - GI/Abdominal Exam GI & Abdominal Exam: Soft, Diminished Bowel Sounds - Rectal Exam Rectal Exam: Deferred Assessment and Plan (1) Diabetes mellitus Status: Acute (2) Pneumonia Status: Acute (3) Prophylactic measure Status: Acute (4) Ankle sprain Status: Acute (5) Bronchitis Status: Acute (6) Hyperglycemia Status: Acute (7) Influenza Status: Acute (8) HTN (hypertension) Status: Chronic - Assessment and Plan (Free Text) Plan: ct chest saeen ct abd seen wor upas ot pt for abn test 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
--- NOTE | 2016-10-18 10:17 | CP.PCM.PN ---
<Abby Valdez - Last Filed: 10/18/16 17:56> Subjective - Date & Time of Evaluation Date of Evaluation: 10/18/16 Time of Evaluation: 08:56 - Subjective Subjective: Medicine Progress Note- Dr. Lake's service: Patient seen and examined at bedside this AM. Patient states he is breathing much better than yesterday. Reports feeling very warm overnight and is complaining about the heat outside. Admits to chest pain only with cough. No fevers, chills, nausea, vomiting, diarrhea. NO acute events overnight. Objective - Vital Signs/Intake and Output Vital Signs (last 24 hours): Temp Pulse Resp BP Pulse Ox 97.5 F L 100 H 20 158/99 H 97 10/18/16 07:51 10/18/16 07:51 10/18/16 07:51 10/18/16 07:51 10/18/16 07:51 Intake and Output: 10/18/16 10/18/16 06:59 18:59 Intake Total 241.5 Balance 241.5 - Medications Medications: Current Medications Albuterol Sulfate (Albuterol 0.083% Inhal Monika (2.5 Mg/3 Ml) Ud) 2.5 mg IH Q6 PRN PRN Reason: Shortness of Breath Albuterol/Ipratropium (Duoneb 3 Mg/0.5 Mg (3 Ml) Ud) 3 ml INH RQ6 [facility] Last Admin: 10/18/16 08:08 Dose: 3 ml Aspirin (Aspirin) 325 mg PO DAILY [facility] Last Admin: 10/17/16 10:16 Dose: 325 mg Benzonatate (Tessalon Perles) 100 mg PO TID [facility] Last Admin: 10/17/16 17:18 Dose: 100 mg Heparin Sodium (Porcine) (Heparin) 5,000 units SC Q8 [facility] Last Admin: 10/18/16 05:23 Dose: 5,000 units Azithromycin 500 mg/ Sodium (Chloride) 250 mls @ 250 mls/hr IVPB DAILY [facility] Last Admin: 10/17/16 10:56 Dose: 250 mls/hr Ceftriaxone Sodium (Rocephin Iv 1 Gm Duplex) 50 mls @ 100 mls/hr IVPB Q24H [facility] Last Admin: 10/17/16 19:45 Dose: 100 mls/hr Ibuprofen (Motrin Tab) 600 mg PO Q6H [facility] Last Admin: 10/18/16 07:01 Dose: Not Given Insulin Aspart (Novolog) 30 unit SC AC [facility] Last Admin: 10/18/16 08:43 Dose: 30 unit Insulin Aspart (Novolog) 0 unit SC ACHS [facility] PRN Reason: Protocol Last Admin: 10/18/16 08:43 Dose: 6 unit Insulin Glargine (Lantus) 50 unit SC HS [facility] Last Admin: 10/17/16 21:27 Dose: 50 units Lisinopril (Zestril) 10 mg PO DAILY [facility] Last Admin: 10/17/16 10:16 Dose: 10 mg Loratadine (Claritin) 10 mg PO DAILY [facility] Last Admin: 10/17/16 10:16 Dose: 10 mg Metformin HCl (Glucophage) 1,000 mg PO BIDCC [facility] Last Admin: 10/18/16 08:42 Dose: 1,000 mg Methylprednisolone (Solu-Medrol) 60 mg IVP Q8 [facility] Last Admin: 10/18/16 05:23 Dose: 60 mg Pantoprazole Sodium (Protonix Ec Tab) 40 mg PO DAILY [facility] Last Admin: 10/17/16 10:16 Dose: 40 mg Sitagliptin Phosphate (Januvia) 50 mg PO DAILY [facility] Last Admin: 10/17/16 10:16 Dose: 50 mg - Labs Labs: 10/18/16 07:37 10/18/16 07:37 - Constitutional Appears: No Acute Distress - Head Exam Head Exam: NORMAL INSPECTION, NORMOCEPHALIC - Eye Exam Eye Exam: EOMI - ENT Exam ENT Exam: Mucous Membranes Moist - Respiratory Exam Respiratory Exam: Clear to Ausculation Bilateral, NORMAL BREATHING PATTERN - Cardiovascular Exam Cardiovascular Exam: REGULAR RHYTHM, +S1, +S2 - GI/Abdominal Exam GI & Abdominal Exam: Soft. absent: Distended, Tenderness - Extremities Exam Extremities Exam: Full ROM, Normal Capillary Refill - Neurological Exam Neurological Exam: Alert, Oriented x3 - Psychiatric Exam Psychiatric exam: Normal Affect, Normal Mood - Skin Skin Exam: Dry, Warm Assessment and Plan - Assessment and Plan (Free Text) Assessment: (1) Pneumonia Assessment & Plan: IV Rocephin and Zithromax CT angio negative for PE Blood cultures 10/14/[address] Andino consulted for pulm. Dr. Mustafa consulted for cardio for dyspnea Status: Acute (2) Diabetes mellitus Assessment & Plan: Hbg a1c is 11.4. Dr. Brianda Kramer is consulted. Patient has uncontrolled DM Metformin 1000mg BID Januvia 50 mg PO daily Lantus 50 units SC HS Novolog 30 units SC AC Will add Amaryl 4 mg PO daily as per Dr. Lake. ISS Status: Acute (3) HTN (hypertension) Assessment & Plan: Elevated Increased Lisinopril to 20 mg PO daily. Status: Chronic (4) Prophylactic measure Assessment & Plan: Protonix 40mg Hep 5000 units sc q8h Status: Acute Management as per Dr. Lake. <[place] S - Last Filed: 10/19/16 21:41> Objective - Vital Signs/Intake and Output Vital Signs (last 24 hours): Temp Pulse Resp BP Pulse Ox 97.4 F L 75 20 164/87 H 94 L 10/19/16 15:00 10/19/16 15:00 10/19/16 15:00 10/19/16 15:00 10/19/16 15:00 Intake and Output: 10/19/16 10/20/16 18:59 06:59 Intake Total 850 450 Balance 850 450 - Medications Medications: Current Medications Aspirin (Aspirin) 325 mg PO DAILY [facility] Last Admin: 10/19/16 10:15 Dose: 325 mg Benzocaine/Menthol (Cepacol Sore Throat) 1 goldie MT Q3 PRN PRN Reason: Sore Throat Last Admin: 10/19/16 11:16 Dose: 1 goldie Benzonatate (Tessalon Perles) 100 mg PO TID [facility] Last Admin: 10/19/16 17:27 Dose: 100 mg Glimepiride (Amaryl) 4 mg PO DAILY [facility] Last Admin: 10/19/16 10:17 Dose: 4 mg Heparin Sodium (Porcine) (Heparin) 5,000 units SC Q8 [facility] Last Admin: 10/19/16 13:17 Dose: 5,000 units Azithromycin 500 mg/ Sodium (Chloride) 250 mls @ 250 mls/hr IVPB DAILY [facility] Last Admin: 10/19/16 10:23 Dose: 250 mls/hr Ibuprofen (Motrin Tab) 600 mg PO Q6H PRN PRN Reason: Pain, severe (8-10) Insulin Aspart (Novolog) 0 unit SC ACHS [facility] PRN Reason: Protocol Last Admin: 10/19/16 17:27 Dose: 2 unit Insulin Aspart (Novolog) 40 unit SC AC [facility] Last Admin: 10/19/16 17:27 Dose: 40 unit Insulin Glargine (Lantus) 70 unit SC HS [facility] Lisinopril (Zestril) 20 mg PO DAILY [facility] Last Admin: 10/19/16 10:18 Dose: 20 mg Loratadine (Claritin) 10 mg PO DAILY [facility] Last Admin: 10/19/16 10:23 Dose: 10 mg Metformin HCl (Glucophage) 1,000 mg PO BIDCC [facility] Last Admin: 10/19/16 17:27 Dose: 1,000 mg Methylprednisolone (Solu-Medrol) 40 mg IVP Q12 [facility] Last Admin: 10/19/16 11:17 Dose: 40 mg Pantoprazole Sodium (Protonix Ec Tab) 40 mg PO DAILY [facility] Last Admin: 10/19/16 10:17 Dose: 40 mg Sitagliptin Phosphate (Januvia) 50 mg PO DAILY [facility] Last Admin: 10/19/16 10:17 Dose: 50 mg - Labs Labs: 10/19/16 11:20 10/19/16 11:20 Assessment and Plan (1) Diabetes mellitus Status: Acute (2) Pneumonia Status: Acute (3) Prophylactic measure Status: Acute (4) Ankle sprain Status: Acute (5) Bronchitis Status: Acute (6) Hyperglycemia Status: Acute (7) Influenza Status: Acute (8) HTN (hypertension) Status: Chronic Attending/Attestation - Attestation I have personally seen and examined this patient.: Yes I have fully participated in the care of the patient.: Yes I have reviewed all pertinent clinical information, including history, physical exam and plan: Yes Notes (Text): case seen and discuse [facility] resident and staff as ordered
[2016-10-18] MEDS: Pantoprazole 40 mg EC Tab PO SCH (10:55)
[2016-10-18] MEDS: Azithromycin 500 MG in Sodium Chloride 0.9% 250 ML IVPB SCH (11:23)
--- NOTE | 2016-10-18 11:40 | VASCLAB ---
PROCEDURE: Lower Extremity Venous Duplex Exam. HISTORY: elevated d dimer PRIORS: None. TECHNIQUE: Bilateral common femoral, femoral, popliteal and posterior tibial, peroneal and great saphenous veins were evaluated. Flow was assessed with color Doppler, compressibility, assessment of phasic flow and augmentation response. Report prepared by MARCEL Silver FINDINGS: RIGHT: 1. Common Femoral Vein: 1.1. Compressibility - Fully compressible: Thrombus - None : Flow - Phasic: Augmentation -Normal: Reflux - None. 2. Femoral Vein: 2.1. Compressibility - Fully compressible: Thrombus - None : Flow - Phasic: Augmentation -Normal: Reflux - None. 3. Popliteal Vein: 3.1. Compressibility - Fully compressible: Thrombus - None : Flow - Phasic: Augmentation -Normal: Reflux - None. 4. Posterior Tibial Vein: 4.1. Compressibility - Fully compressible: Thrombus - None: Flow - Phasic: Augmentation -Normal: Reflux - None. 5. Peroneal Vein: 5.1. Compressibility - Fully compressible: Thrombus - None: Flow - Phasic: Augmentation -Normal: Reflux - None. 6. Great Saphenous Vein: 6.1. Compressibility - Fully compressible: Thrombus - None: Flow - Phasic: Augmentation - Normal: Reflux - None. LEFT: 1. Common Femoral Vein: 1.1. Compressibility - Fully compressible: Thrombus - None: Flow - Phasic: Augmentation -Normal: Reflux - None. 2. Femoral Vein: 2.1. Compressibility - Fully compressible: Thrombus - None: Flow - Phasic: Augmentation -Normal: Reflux - None. 3. Popliteal Vein: 3.1. Compressibility - Fully compressible: Thrombus - None : Flow - Phasic: Augmentation -Normal: Reflux - None. 4. Posterior Tibial Vein: 4.1. Compressibility - Fully compressible: Thrombus - None: Flow - Phasic: Augmentation -Normal: Reflux - None. 5. Peroneal Vein: 5.1. Compressibility - Fully compressible: Thrombus - None: Flow - Phasic: Augmentation -Normal: Reflux - None. 6. Great Saphenous Vein: 6.1. Compressibility - Fully compressible: Thrombus - None: Flow - Phasic: Augmentation - Normal: Reflux - None. OTHER FINDINGS: Right: None significant. Left: None significant. IMPRESSION: Right: No evidence of deep or superficial vein thrombosis of the right lower extremity. Normal valve function noted of the right side. Left: No evidence of deep or superficial vein thrombosis of the left lower extremity. Normal valve function noted of the left side.
--- NOTE | 2016-10-18 12:12 | CARD ---
APPROVED REPORT EKG Measurement Heart [id number] [place] [id number] [id number] <Conclusion> Sinus tachycardia Possible Left atrial enlargement Borderline ECG
--- NOTE | 2016-10-18 13:22 | CP.PCM.PN ---
Subjective - Date & Time of Evaluation Date of Evaluation: 10/18/16 Time of Evaluation: 12:00 - Subjective Subjective: Improved clinically on treatment for bronchitis Objective - Vital Signs/Intake and Output Vital Signs (last 24 hours): Temp Pulse Resp BP Pulse Ox 97.5 F L 100 H 20 158/99 H 97 10/18/16 07:51 10/18/16 07:51 10/18/16 07:51 10/18/16 07:51 10/18/16 07:51 Intake and Output: 10/18/16 10/18/16 06:59 18:59 Intake Total 241.5 Balance 241.5 - Medications Medications: Current Medications Albuterol Sulfate (Albuterol 0.083% Inhal Monika (2.5 Mg/3 Ml) Ud) 2.5 mg IH Q6 PRN PRN Reason: Shortness of Breath Albuterol/Ipratropium (Duoneb 3 Mg/0.5 Mg (3 Ml) Ud) 3 ml INH RQ6 [facility] Last Admin: 10/18/16 08:08 Dose: 3 ml Aspirin (Aspirin) 325 mg PO DAILY [facility] Last Admin: 10/18/16 10:55 Dose: 325 mg Benzonatate (Tessalon Perles) 100 mg PO TID [facility] Last Admin: 10/18/16 10:55 Dose: 100 mg Heparin Sodium (Porcine) (Heparin) 5,000 units SC Q8 [facility] Last Admin: 10/18/16 05:23 Dose: 5,000 units Azithromycin 500 mg/ Sodium (Chloride) 250 mls @ 250 mls/hr IVPB DAILY [facility] Last Admin: 10/18/16 11:23 Dose: 250 mls/hr Ceftriaxone Sodium (Rocephin Iv 1 Gm Duplex) 50 mls @ 100 mls/hr IVPB Q24H [facility] Last Admin: 10/17/16 19:45 Dose: 100 mls/hr Ibuprofen (Motrin Tab) 600 mg PO Q6H [facility] Last Admin: 10/18/16 07:01 Dose: Not Given Insulin Aspart (Novolog) 30 unit SC AC [facility] Last Admin: 10/18/16 11:55 Dose: 30 unit Insulin Aspart (Novolog) 0 unit SC ACHS [facility] PRN Reason: Protocol Last Admin: 10/18/16 11:56 Dose: 3 unit Insulin Glargine (Lantus) 50 unit SC HS [facility] Last Admin: 04/10/17 21:27 Dose: 50 units Lisinopril (Zestril) 10 mg PO DAILY [facility] Last Admin: 10/18/16 10:55 Dose: 10 mg Loratadine (Claritin) 10 mg PO DAILY [facility] Last Admin: 10/18/16 10:55 Dose: 10 mg Metformin HCl (Glucophage) 1,000 mg PO BIDCC [facility] Last Admin: 10/18/16 08:42 Dose: 1,000 mg Methylprednisolone (Solu-Medrol) 60 mg IVP Q8 [facility] Last Admin: 10/18/16 05:23 Dose: 60 mg Pantoprazole Sodium (Protonix Ec Tab) 40 mg PO DAILY [facility] Last Admin: 10/18/16 10:55 Dose: 40 mg Sitagliptin Phosphate (Januvia) 50 mg PO DAILY [facility] Last Admin: 10/18/16 10:55 Dose: 50 mg - Labs Labs: 10/18/16 07:37 10/18/16 07:37 - Constitutional Appears: Non-toxic - Head Exam Head Exam: ATRAUMATIC - Eye Exam Eye Exam: EOMI - ENT Exam ENT Exam: Mucous Membranes Moist - Neck Exam Neck Exam: absent: Lymphadenopathy, Thyromegaly - Respiratory Exam Respiratory Exam: Clear to Ausculation Bilateral. absent: Rales - Cardiovascular Exam Cardiovascular Exam: REGULAR RHYTHM - GI/Abdominal Exam GI & Abdominal Exam: Normal Bowel Sounds. absent: Organomegaly - Rectal Exam Rectal Exam: Deferred - Extremities Exam Extremities Exam: Normal Capillary Refill. absent: Calf Tenderness - Neurological Exam Neurological Exam: Alert, Oriented x3 - Psychiatric Exam Psychiatric exam: Anxious - Skin Skin Exam: Dry Assessment and Plan (1) Diabetes mellitus Status: Acute (2) Bronchitis Status: Acute (3) Influenza Status: Acute
--- NOTE | 2016-10-18 13:22 | CP.PCM.PN ---
Subjective - Date & Time of Evaluation Date of Evaluation: 10/18/16 Time of Evaluation: 10:30 - Subjective Subjective: Patient was seen and examined at bedside, no acute distress, no acute events overnight. The patient reports of some mild chest wall tenderness on the right, still complains of a nonproductive dry cough, but reports that his breathing is much better today. Patient currently denied fever, chill, nausea, vomiting, headache, chest pain, dyspnea, palpitations at this time. Objective - Vital Signs/Intake and Output Vital Signs (last 24 hours): Temp Pulse Resp BP Pulse Ox 97.5 F L 100 H 20 158/99 H 97 10/18/16 07:51 10/18/16 07:51 10/18/16 07:51 10/18/16 07:51 10/18/16 07:51 Intake and Output: 10/18/16 10/18/16 06:59 18:59 Intake Total 241.5 Balance 241.5 - Medications Medications: Current Medications Albuterol Sulfate (Albuterol 0.083% Inhal Monika (2.5 Mg/3 Ml) Ud) 2.5 mg IH Q6 PRN PRN Reason: Shortness of Breath Albuterol/Ipratropium (Duoneb 3 Mg/0.5 Mg (3 Ml) Ud) 3 ml INH RQ6 [facility] Last Admin: 10/18/16 08:08 Dose: 3 ml Aspirin (Aspirin) 325 mg PO DAILY [facility] Last Admin: 10/18/16 10:55 Dose: 325 mg Benzonatate (Tessalon Perles) 100 mg PO TID [facility] Last Admin: 10/18/16 10:55 Dose: 100 mg Heparin Sodium (Porcine) (Heparin) 5,000 units SC Q8 [facility] Last Admin: 10/18/16 05:23 Dose: 5,000 units Azithromycin 500 mg/ Sodium (Chloride) 250 mls @ 250 mls/hr IVPB DAILY [facility] Last Admin: 10/18/16 11:23 Dose: 250 mls/hr Ceftriaxone Sodium (Rocephin Iv 1 Gm Duplex) 50 mls @ 100 mls/hr IVPB Q24H [facility] Last Admin: 10/17/16 19:45 Dose: 100 mls/hr Ibuprofen (Motrin Tab) 600 mg PO Q6H [facility] Last Admin: 10/18/16 07:01 Dose: Not Given Insulin Aspart (Novolog) 30 unit SC AC [facility] Last Admin: 10/18/16 11:55 Dose: 30 unit Insulin Aspart (Novolog) 0 unit SC ACHS [facility] PRN Reason: Protocol Last Admin: 10/18/16 11:56 Dose: 3 unit Insulin Glargine (Lantus) 50 unit SC HS [facility] Last Admin: 10/17/16 21:27 Dose: 50 units Lisinopril (Zestril) 10 mg PO DAILY [facility] Last Admin: 10/18/16 10:55 Dose: 10 mg Loratadine (Claritin) 10 mg PO DAILY [facility] Last Admin: 10/18/16 10:55 Dose: 10 mg Metformin HCl (Glucophage) 1,000 mg PO BIDCC [facility] Last Admin: 10/18/16 08:42 Dose: 1,000 mg Methylprednisolone (Solu-Medrol) 60 mg IVP Q8 [facility] Last Admin: 10/18/16 05:23 Dose: 60 mg Pantoprazole Sodium (Protonix Ec Tab) 40 mg PO DAILY [facility] Last Admin: 10/18/16 10:55 Dose: 40 mg Sitagliptin Phosphate (Januvia) 50 mg PO DAILY [facility] Last Admin: 10/18/16 10:55 Dose: 50 mg - Labs Labs: 10/18/16 07:37 10/18/16 07:37 - Constitutional Appears: Well, Non-toxic, No Acute Distress - Head Exam Head Exam: ATRAUMATIC, NORMAL INSPECTION - Eye Exam Eye Exam: Normal appearance - Neck Exam Neck Exam: Normal Inspection - Respiratory Exam Respiratory Exam: Chest Wall Tenderness, Clear to Ausculation Bilateral - Cardiovascular Exam Cardiovascular Exam: +S1, +S2 - Neurological Exam Neurological Exam: Alert, Awake, Oriented x3 - Skin Skin Exam: Dry, Normal Color, Warm Assessment and Plan (1) Pneumonia Assessment & Plan: switch to PO Abx stable from pulm standpoint, clear for discharge as per medicine team Status: Acute
[2016-10-18] MEDS ORDERED: Benzocaine/Menthol (Cepacol) Lozenge MT PRN (13:59)
[2016-10-18] MEDS: cefTRIAXone IV 1 gm in Dextros 50 ML IVPB SCH (19:52)
[2016-10-18] MEDS ORDERED: (Lantus) Insulin Glargine, Recombinant SC SCH (22:00)
[2016-10-19] MEDS: Albuterol-Ipratrop 3 mg / 0.5 (3 ml) UD INH SCH ×4 (01:12→19:55)
[2016-10-19] MEDS: MethylPREDNISolone 40 mg Vial IVP SCH (05:27)
--- NOTE | 2016-10-19 07:41 | PN ---
DATE: 10/18/2016 LOCATION: Room 371 SUBJECTIVE: This is a 40-year-old male with recent uncontrolled type metabolic management. He also presented here with acute pneumonitis with supervening persistent asthmatic bronchitis and was started on IV steroid therapy at a very high dose of Solu-Medrol at 60 mg IV q. 8 hours, as noted. S upervening hyperglycemic , and the latest glucose levels today have ranged from 229 to . T he latest 21, sodium 134, potassium 4.4, chloride , 26, . glycemic accel eration from the , with NovoLog to 40 units IV before meals, to start at dinnertime today as ordered. Will also increase the basal insulin with Lantus to 60 units subcutaneous at bedti me daily to start tonight. We will continue the low-dose correction scale using NovoLog insulin as g iven. We will obtain serial chemistries and supplement accordingly as needed. We will also advise t he patient very hefty insulin dosing is only temporary, as this is only to counteract and overr karolina the insulin resistance from the steroid therapy as given. He will be going home on insulin thera py, but at a much lower dose otherwise. Will obtain serial chemistries and supplement accordingly as needed. We will follow. Brianda Kramer MD cc: [id number] TT: 10/18/2016 16:32:15 Confirmation # [id number] Dictation # [id number] [email or web address]
[2016-10-19] MEDS: (Novolog) Insulin Aspart, Recombinant 100 u/ml 10 ml vial SC SCH ×6 (08:18→17:27)
--- NOTE | 2016-10-19 09:32 | CP.PCM.PN ---
<MikyDominik H - Last Filed: 10/19/16 17:07> Subjective - Date & Time of Evaluation Date of Evaluation: 10/19/16 Time of Evaluation: 09:00 - Subjective Subjective: Dr. Lake service: Patient seen and examined in room. Patient says he feels much better and is askng to go home. He also reports that he understand the seriousness of his diabetes. Patient currently denies chest pain, cough, fever, chills, nausea, vomiting, or diarrhea. Objective - Vital Signs/Intake and Output Vital Signs (last 24 hours): Temp Pulse Resp BP Pulse Ox 97.6 F 96 H 20 167/95 H 95 10/19/16 07:42 10/19/16 07:42 10/19/16 07:42 10/19/16 07:42 10/19/16 07:42 Intake and Output: 10/19/16 10/19/16 06:59 18:59 Intake Total 500 Balance 500 - Medications Medications: Current Medications Albuterol Sulfate (Albuterol 0.083% Inhal Monika (2.5 Mg/3 Ml) Ud) 2.5 mg IH Q6 PRN PRN Reason: Shortness of Breath Albuterol/Ipratropium (Duoneb 3 Mg/0.5 Mg (3 Ml) Ud) 3 ml INH RQ6 [facility] Last Admin: 10/19/16 07:35 Dose: 3 ml Aspirin (Aspirin) 325 mg PO DAILY [facility] Last Admin: 10/18/16 10:55 Dose: 325 mg Benzocaine/Menthol (Cepacol Sore Throat) 1 goldie MT Q3 PRN PRN Reason: Sore Throat Benzonatate (Tessalon Perles) 100 mg PO TID [facility] Last Admin: 10/18/16 17:13 Dose: 100 mg Glimepiride (Amaryl) 4 mg PO DAILY [facility] Heparin Sodium (Porcine) (Heparin) 5,000 units SC Q8 [facility] Last Admin: 10/19/16 05:27 Dose: 5,000 units Azithromycin 500 mg/ Sodium (Chloride) 250 mls @ 250 mls/hr IVPB DAILY [facility] Last Admin: 10/18/16 11:23 Dose: 250 mls/hr Ceftriaxone Sodium (Rocephin Iv 1 Gm Duplex) 50 mls @ 100 mls/hr IVPB Q24H [facility] Last Admin: 10/18/16 19:52 Dose: 100 mls/hr Ibuprofen (Motrin Tab) 600 mg PO Q6H PRN PRN Reason: Pain, severe (8-10) Insulin Aspart (Novolog) 0 unit SC ACHS [facility] PRN Reason: Protocol Last Admin: 10/19/16 08:19 Dose: 4 unit Insulin Aspart (Novolog) 40 unit SC AC [facility] Last Admin: 10/19/16 08:18 Dose: 40 unit Insulin Glargine (Lantus) 60 unit SC HS [facility] Last Admin: 10/18/16 21:41 Dose: 60 units Lisinopril (Zestril) 20 mg PO DAILY [facility] Loratadine (Claritin) 10 mg PO DAILY [facility] Last Admin: 10/18/16 10:55 Dose: 10 mg Metformin HCl (Glucophage) 1,000 mg PO BIDCC [facility] Last Admin: 10/19/16 08:46 Dose: 1,000 mg Methylprednisolone (Solu-Medrol) 60 mg IVP Q8 [facility] Last Admin: 10/19/16 05:27 Dose: 60 mg Pantoprazole Sodium (Protonix Ec Tab) 40 mg PO DAILY [facility] Last Admin: 10/18/16 10:55 Dose: 40 mg Sitagliptin Phosphate (Januvia) 50 mg PO DAILY [facility] Last Admin: 10/18/16 10:55 Dose: 50 mg - Labs Labs: 10/18/16 07:37 10/18/16 07:37 - Constitutional Appears: No Acute Distress - Head Exam Head Exam: NORMAL INSPECTION - Eye Exam Eye Exam: Normal appearance Pupil Exam: NORMAL ACCOMODATION - Respiratory Exam Respiratory Exam: Clear to Ausculation Bilateral. absent: Rhonchi, Wheezes - Cardiovascular Exam Cardiovascular Exam: REGULAR RHYTHM, RRR, +S1, +S2. absent: Gallop, Rubs - GI/Abdominal Exam GI & Abdominal Exam: Soft, Normal Bowel Sounds. absent: Tenderness - Extremities Exam Extremities Exam: Normal Inspection. absent: Pedal Edema - Back Exam Back Exam: NORMAL INSPECTION - Psychiatric Exam Psychiatric exam: Normal Affect - Skin Skin Exam: Cyanosis, Normal Color Assessment and Plan (1) Pneumonia Assessment & Plan: Patient is to be discharged home with PO Zithromax and PO Augmentin. He also is to be given script for Advair and Singular as well. He is also given a Medrol dose pack. Patient will follow up with his PMD and pulmnologist as well after discharge. Status: Acute (2) Diabetes mellitus Assessment & Plan: DM medication in the chart, will need to follow up with PMD after dischargee Script for Lantus, Novolog, Metformin, and Amaryl. Also discussed with patient his need to check his BS regulary 3 times a day atleast. Status: Acute (3) HTN (hypertension) Status: Chronic (4) Prophylactic measure Status: Acute <[place] S - Last Filed: 10/19/16 21:38> Objective - Vital Signs/Intake and Output Vital Signs (last 24 hours): Temp Pulse Resp BP Pulse Ox 97.4 F L 75 20 164/87 H 94 L 10/19/16 15:00 10/19/16 15:00 10/19/16 15:00 10/19/16 15:00 10/19/16 15:00 Intake and Output: 10/19/16 10/20/16 18:59 06:59 Intake Total 850 450 Balance 850 450 - Medications Medications: Current Medications Aspirin (Aspirin) 325 mg PO DAILY [facility] Last Admin: 10/19/16 10:15 Dose: 325 mg Benzocaine/Menthol (Cepacol Sore Throat) 1 goldie MT Q3 PRN PRN Reason: Sore Throat Last Admin: 10/19/16 11:16 Dose: 1 goldie Benzonatate (Tessalon Perles) 100 mg PO TID [facility] Last Admin: 10/19/16 17:27 Dose: 100 mg Glimepiride (Amaryl) 4 mg PO DAILY [facility] Last Admin: 10/19/16 10:17 Dose: 4 mg Heparin Sodium (Porcine) (Heparin) 5,000 units SC Q8 [facility] Last Admin: 10/19/16 13:17 Dose: 5,000 units Azithromycin 500 mg/ Sodium (Chloride) 250 mls @ 250 mls/hr IVPB DAILY [facility] Last Admin: 10/19/16 10:23 Dose: 250 mls/hr Ibuprofen (Motrin Tab) 600 mg PO Q6H PRN PRN Reason: Pain, severe (8-10) Insulin Aspart (Novolog) 0 unit SC ACHS [facility] PRN Reason: Protocol Last Admin: 10/19/16 17:27 Dose: 2 unit Insulin Aspart (Novolog) 40 unit SC AC [facility] Last Admin: 10/19/16 17:27 Dose: 40 unit Insulin Glargine (Lantus) 70 unit SC HS [facility] Lisinopril (Zestril) 20 mg PO DAILY [facility] Last Admin: 10/19/16 10:18 Dose: 20 mg Loratadine (Claritin) 10 mg PO DAILY [facility] Last Admin: 10/19/16 10:23 Dose: 10 mg Metformin HCl (Glucophage) 1,000 mg PO BIDCC [facility] Last Admin: 10/19/16 17:27 Dose: 1,000 mg Methylprednisolone (Solu-Medrol) 40 mg IVP Q12 [facility] Last Admin: 10/19/16 11:17 Dose: 40 mg Pantoprazole Sodium (Protonix Ec Tab) 40 mg PO DAILY [facility] Last Admin: 10/19/16 10:17 Dose: 40 mg Sitagliptin Phosphate (Januvia) 50 mg PO DAILY [facility] Last Admin: 10/19/16 10:17 Dose: 50 mg - Labs Labs: 10/19/16 11:20 10/19/16 11:20 Attending/Attestation - Attestation I have personally seen and examined this patient.: Yes I have fully participated in the care of the patient.: Yes I have reviewed all pertinent clinical information, including history, physical exam and plan: Yes Notes (Text): 10/19/16 21:38 case discussed with staff adn resident as ordered for discharge today rxgiven
[2016-10-19] MEDS: Pantoprazole 40 mg EC Tab PO SCH (10:17)
[2016-10-19] MEDS: Azithromycin 500 MG in Sodium Chloride 0.9% 250 ML IVPB SCH (10:23)
[2016-10-19] MEDS ORDERED: MethylPREDNISolone 40 mg Vial IVP SCH ×2 (10:30→13:00)
--- NOTE | 2016-10-19 11:08 | CP.PCM.PN ---
Subjective - Date & Time of Evaluation Date of Evaluation: 10/19/16 Time of Evaluation: 11:05 - Subjective Subjective: Patient was seen and examined at bedside this AM, no acute distress, no acute events overnight. Pt was comfortable and reported significantly reduced chest wall tenderness that no longer occurred when he coughed or with deep inspiration. Pt no longer complains of wheezing or dyspnea. Pt currently denies chest pain, headache, nausea, vomiting, fever, chills, edema at this time. Objective - Vital Signs/Intake and Output Vital Signs (last 24 hours): Temp Pulse Resp BP Pulse Ox 97.6 F 96 H 20 167/95 H 95 10/19/16 07:42 10/19/16 07:42 10/19/16 07:42 10/19/16 07:42 10/19/16 07:42 Intake and Output: 10/19/16 10/19/16 06:59 18:59 Intake Total 500 Balance 500 - Medications Medications: Current Medications Albuterol Sulfate (Albuterol 0.083% Inhal Monika (2.5 Mg/3 Ml) Ud) 2.5 mg IH Q6 PRN PRN Reason: Shortness of Breath Albuterol/Ipratropium (Duoneb 3 Mg/0.5 Mg (3 Ml) Ud) 3 ml INH RQ6 [facility] Last Admin: 10/19/16 07:35 Dose: 3 ml Aspirin (Aspirin) 325 mg PO DAILY [facility] Last Admin: 10/19/16 10:15 Dose: 325 mg Benzocaine/Menthol (Cepacol Sore Throat) 1 goldie MT Q3 PRN PRN Reason: Sore Throat Benzonatate (Tessalon Perles) 100 mg PO TID [facility] Last Admin: 10/19/16 10:17 Dose: 100 mg Glimepiride (Amaryl) 4 mg PO DAILY [facility] Last Admin: 10/19/16 10:17 Dose: 4 mg Heparin Sodium (Porcine) (Heparin) 5,000 units SC Q8 [facility] Last Admin: 10/19/16 05:27 Dose: 5,000 units Azithromycin 500 mg/ Sodium (Chloride) 250 mls @ 250 mls/hr IVPB DAILY [facility] Last Admin: 10/19/16 10:23 Dose: 250 mls/hr Ceftriaxone Sodium (Rocephin Iv 1 Gm Duplex) 50 mls @ 100 mls/hr IVPB Q24H [facility] Last Admin: 10/18/16 19:52 Dose: 100 mls/hr Ibuprofen (Motrin Tab) 600 mg PO Q6H PRN PRN Reason: Pain, severe (8-10) Insulin Aspart (Novolog) 0 unit SC ACHS [facility] PRN Reason: Protocol Last Admin: 10/19/16 08:19 Dose: 4 unit Insulin Aspart (Novolog) 40 unit SC AC [facility] Last Admin: 10/19/16 08:18 Dose: 40 unit Insulin Glargine (Lantus) 60 unit SC HS [facility] Last Admin: 10/18/16 21:41 Dose: 60 units Lisinopril (Zestril) 20 mg PO DAILY [facility] Last Admin: 10/19/16 10:18 Dose: 20 mg Loratadine (Claritin) 10 mg PO DAILY [facility] Last Admin: 10/19/16 10:23 Dose: 10 mg Metformin HCl (Glucophage) 1,000 mg PO BIDCC [facility] Last Admin: 10/19/16 08:46 Dose: 1,000 mg Methylprednisolone (Solu-Medrol) 40 mg IVP Q12 [facility] Pantoprazole Sodium (Protonix Ec Tab) 40 mg PO DAILY [facility] Last Admin: 10/19/16 10:17 Dose: 40 mg Sitagliptin Phosphate (Januvia) 50 mg PO DAILY [facility] Last Admin: 10/19/16 10:17 Dose: 50 mg - Labs Labs: 10/18/16 07:37 10/18/16 07:37 - Constitutional Appears: Well, Non-toxic, No Acute Distress - Head Exam Head Exam: ATRAUMATIC, NORMAL INSPECTION - Eye Exam Eye Exam: Normal appearance - ENT Exam ENT Exam: Normal Exam - Neck Exam Neck Exam: Normal Inspection - Respiratory Exam Respiratory Exam: Clear to Ausculation Bilateral, NORMAL BREATHING PATTERN. absent: Decreased Breath Sounds, Wheezes - Cardiovascular Exam Cardiovascular Exam: +S1, +S2 - Neurological Exam Neurological Exam: Alert, Awake, Oriented x3 - Skin Skin Exam: Dry, Normal Color, Warm Assessment and Plan (1) Pneumonia Assessment & Plan: Pt stable from pulmonary stand point, clear for discharge with PO Abx Status: Acute
[2016-10-19 11:26] LABS: BASO % 0.1 % (0.0-2.0); HEMATOCRIT 37.2 % (35.0-51.0); LYMPH # 0.6 K/uL (1.0-4.3); LYMPH % 5.1 % (20.0-40.0); MEAN CELL VOLUME 85.6 fL (80.0-94.0); MEAN CORPUSCULAR HEMOGLOBIN 27.8 pg (27.0-31.0); MEAN CORPUSCULAR HGB CONC 32.5 g/dL (33.0-37.0); MEAN PLATELET VOLUME 10.4 fL (7.2-11.7); MONO # 0.8 K/uL (0.0-0.8); MONO % 7.1 % (0.0-10.0); NRBC % 0.1 % (0.0-2.0); PLATELET COUNT 271 K/uL (130-400); RED CELL DISTRIBUTION WIDTH 13.1 % (11.5-14.5); WHITE BLOOD COUNT 11.1 K/uL (4.8-10.8)
--- NOTE | 2016-10-19 11:32 | CT ---
PROCEDURE: CT Chest with contrast (Pulmonary Angiogram) HISTORY: COMPARISON: None available. TECHNIQUE: Axial computed tomography images were obtained of the chest in the pulmonary arterial phase of enhancement. Coronal and sagittal reformatted images were created and reviewed. Intravenous contrast dose: 100 mL Visipaque 320 Radiation dose: Total exam DLP = 543.52 mGy-cm. This CT exam was performed using one or more of the following dose reduction techniques: Automated exposure control, adjustment of the mA and/or kV according to patient size, and/or use of iterative reconstruction technique. FINDINGS: PULMONARY ARTERIES: Technically limited examination. No large central pulmonary embolus. No lobar embolus appreciated. Unable to adequately evaluate segmental and subsegmental pulmonary artery branches on the basis of this examination. AORTA: No acute findings. No thoracic aortic aneurysm. LUNGS: Right lower lobe consolidation. Possible pneumonia. Dependent pleural thickening right lower lobe. No pulmonary opacity seen elsewhere. PLEURAL SPACES: Trace right pleural effusion versus posterior pleural thickening. HEART: Unremarkable. No cardiomegaly. No significant pericardial effusion. LYMPH NODES: Mild right hilar lymphadenopathy. No mediastinal lymphadenopathy. Unremarkable left hilum. BONES, CHEST WALL: Unremarkable. No fracture or destructive lesion OTHER FINDINGS: Unremarkable. IMPRESSION: Technically limited examination. No large central pulmonary embolus. Unable to evaluate segmental and subsegmental pulmonary artery branches. Right lower lobe infiltrate. Trace right pleural effusion versus dependent pleural thickening. Mild right hilar lymphadenopathy. Stop airway or for the tail to the heel or is
[2016-10-19 11:34] LABS: CHLORIDE 90 mmol/L (98-107)
[2016-10-19 11:35] LABS: POTASSIUM 4.2 mmol/L (3.6-5.2); SODIUM 131 mmol/L (132-148)
[2016-10-19 11:37] LABS: ALKALINE PHOSPHATASE 74 U/L (38-126); AST/SGOT 16 U/L (17-59); BILIRUBIN,TOTAL 0.9 mg/dL (0.2-1.3); CARBON DIOXIDE 24 mmol/L (22-30); GFR AFRICAN-AMERICAN > 60; TOTAL PROTEIN 7.1 g/dL (6.3-8.3)
[2016-10-19 11:38] LABS: ALT/SGPT 15 U/L (21-72); BLOOD UREA NITROGEN 21 mg/dL (9-20); GLUCOSE,RANDOM 290 mg/dL (75-110); MAGNESIUM 2.3 mg/dL (1.6-2.3); PHOSPHOROUS 3.6 mg/dL (2.5-4.5)
[2016-10-19 12:33] LABS: NEUTROPHIL 86 % (50-75); REACTIVE LYMPHOCYTES 1 % (0-0); TOTAL CELLS COUNTED 100
[2016-10-19 12:34] LABS: LARGE PLATELETS PRESENT
--- NOTE | 2016-10-19 16:11 | PN ---
DATE: 10/19/2016 ROOM: 371 This is a 40-year-old male with recent uncontrolled type 2 insulin-requiring diabetes, now being foll owed closely for metabolic management. His glycemic levels are fluctuating as noted today and the glucose levels have ranged from 292-318 mg /dL. The latest chemistry showed a BUN of 21, sodium 131, potassium 4.2, chloride 90, CO2 24, glucos e 290 and creatinine 0.7. The patient is still on IV steroid therapy as given with Solu-Medrol at 40 mg IV q. 12 hours with exp ected hyperglycemic accelerations from the underlying increased insulin resistance thereof. So at this time, will titrate his Lantus to 70 units subQ at bedtime daily to start tonight. Will ti trate incrementally as indicated to optimize metabolic control. Will also continue the NovoLog given at mealtimes at 40 units subQ t.i.d. before meals as ordered. Will titrate incrementally as indicat ed to optimize metabolic control. Will follow and advise accordingly. Brianda Kramer MD cc: [id number] TT: 10/19/2016 16:10:40 Confirmation # [id number] Dictation # [id number] mn
[2016-10-19 16:14] VITALS: BP 164/87; PULSE 75; TEMP 97.4; O2SAT 94
--- NOTE | 2016-10-19 16:33 | CP.PCM.PN ---
Subjective - Date & Time of Evaluation Date of Evaluation: 10/19/16 Time of Evaluation: 09:20 - Subjective Subjective: clinically same Objective - Vital Signs/Intake and Output Vital Signs (last 24 hours): Temp Pulse Resp BP Pulse Ox 97.4 F L 75 20 164/87 H 94 L 10/19/16 15:00 10/19/16 15:00 10/19/16 15:00 10/19/16 15:00 10/19/16 15:00 Intake and Output: 10/19/16 10/19/16 06:59 18:59 Intake Total 500 850 Balance 500 850 - Medications Medications: Current Medications Albuterol Sulfate (Albuterol 0.083% Inhal Monika (2.5 Mg/3 Ml) Ud) 2.5 mg IH Q6 PRN PRN Reason: Shortness of Breath Albuterol/Ipratropium (Duoneb 3 Mg/0.5 Mg (3 Ml) Ud) 3 ml INH RQ6 [facility] Last Admin: 10/19/16 13:39 Dose: 3 ml Aspirin (Aspirin) 325 mg PO DAILY [facility] Last Admin: 10/19/16 10:15 Dose: 325 mg Benzocaine/Menthol (Cepacol Sore Throat) 1 goldie MT Q3 PRN PRN Reason: Sore Throat Last Admin: 10/19/16 11:16 Dose: 1 goldie Benzonatate (Tessalon Perles) 100 mg PO TID [facility] Last Admin: 10/19/16 13:17 Dose: 100 mg Glimepiride (Amaryl) 4 mg PO DAILY [facility] Last Admin: 10/19/16 10:17 Dose: 4 mg Heparin Sodium (Porcine) (Heparin) 5,000 units SC Q8 [facility] Last Admin: 10/19/16 13:17 Dose: 5,000 units Azithromycin 500 mg/ Sodium (Chloride) 250 mls @ 250 mls/hr IVPB DAILY [facility] Last Admin: 10/19/16 10:23 Dose: 250 mls/hr Ceftriaxone Sodium (Rocephin Iv 1 Gm Duplex) 50 mls @ 100 mls/hr IVPB Q24H [facility] Last Admin: 10/18/16 19:52 Dose: 100 mls/hr Ibuprofen (Motrin Tab) 600 mg PO Q6H PRN PRN Reason: Pain, severe (8-10) Insulin Aspart (Novolog) 0 unit SC ACHS [facility] PRN Reason: Protocol Last Admin: 10/19/16 12:09 Dose: 6 unit Insulin Aspart (Novolog) 40 unit SC AC [facility] Last Admin: 10/19/16 12:08 Dose: 40 unit Insulin Glargine (Lantus) 70 unit SC HS [facility] Lisinopril (Zestril) 20 mg PO DAILY [facility] Last Admin: 10/19/16 10:18 Dose: 20 mg Loratadine (Claritin) 10 mg PO DAILY [facility] Last Admin: 10/19/16 10:23 Dose: 10 mg Metformin HCl (Glucophage) 1,000 mg PO BIDCC [facility] Last Admin: 10/19/16 08:46 Dose: 1,000 mg Methylprednisolone (Solu-Medrol) 40 mg IVP Q12 [facility] Last Admin: 10/19/16 11:17 Dose: 40 mg Pantoprazole Sodium (Protonix Ec Tab) 40 mg PO DAILY [facility] Last Admin: 10/19/16 10:17 Dose: 40 mg Sitagliptin Phosphate (Januvia) 50 mg PO DAILY [facility] Last Admin: 10/19/16 10:17 Dose: 50 mg - Labs Labs: 10/19/16 11:20 10/19/16 11:20 - Constitutional Appears: Well - Head Exam Head Exam: ATRAUMATIC, NORMAL INSPECTION, NORMOCEPHALIC - Eye Exam Eye Exam: EOMI, Normal appearance, PERRL Pupil Exam: NORMAL ACCOMODATION, PERRL - ENT Exam ENT Exam: Mucous Membranes Moist, Normal Exam - Neck Exam Neck Exam: Full ROM, Normal Inspection. absent: Lymphadenopathy - Respiratory Exam Respiratory Exam: Decreased Breath Sounds - Cardiovascular Exam Cardiovascular Exam: REGULAR RHYTHM, +S1, +S2 - GI/Abdominal Exam GI & Abdominal Exam: Soft, Diminished Bowel Sounds - Rectal Exam Rectal Exam: Deferred Assessment and Plan (1) Diabetes mellitus Status: Acute (2) Pneumonia Status: Acute (3) Prophylactic measure Status: Acute (4) Ankle sprain Status: Acute (5) Bronchitis Status: Acute (6) Hyperglycemia Status: Acute (7) Influenza Status: Acute (8) HTN (hypertension) Status: Chronic - Assessment and Plan (Free Text) Plan: clinically same pt adv to take po zithromax augmentin [place] sme a ordered advair nedrol dose follwoup wth my ofice on this or other office as ordered
--- NOTE | 2016-10-19 18:02 | CP.PCM.PN ---
Subjective - Date & Time of Evaluation Date of Evaluation: 10/19/16 Time of Evaluation: 14:00 - Subjective Subjective: stable clinically, less sob, observe Objective - Vital Signs/Intake and Output Vital Signs (last 24 hours): Temp Pulse Resp BP Pulse Ox 97.4 F L 75 20 164/87 H 94 L 10/19/16 15:00 10/19/16 15:00 10/19/16 15:00 10/19/16 15:00 10/19/16 15:00 Intake and Output: 10/19/16 10/19/16 06:59 18:59 Intake Total 500 850 Balance 500 850 - Medications Medications: Current Medications Albuterol Sulfate (Albuterol 0.083% Inhal Monika (2.5 Mg/3 Ml) Ud) 2.5 mg IH Q6 PRN PRN Reason: Shortness of Breath Albuterol/Ipratropium (Duoneb 3 Mg/0.5 Mg (3 Ml) Ud) 3 ml INH RQ6 [facility] Last Admin: 10/19/16 13:39 Dose: 3 ml Aspirin (Aspirin) 325 mg PO DAILY [facility] Last Admin: 10/19/16 10:15 Dose: 325 mg Benzocaine/Menthol (Cepacol Sore Throat) 1 goldie MT Q3 PRN PRN Reason: Sore Throat Last Admin: 10/19/16 11:16 Dose: 1 goldie Benzonatate (Tessalon Perles) 100 mg PO TID [facility] Last Admin: 10/19/16 17:27 Dose: 100 mg Glimepiride (Amaryl) 4 mg PO DAILY [facility] Last Admin: 10/19/16 10:17 Dose: 4 mg Heparin Sodium (Porcine) (Heparin) 5,000 units SC Q8 [facility] Last Admin: 10/19/16 13:17 Dose: 5,000 units Azithromycin 500 mg/ Sodium (Chloride) 250 mls @ 250 mls/hr IVPB DAILY [facility] Last Admin: 10/19/16 10:23 Dose: 250 mls/hr Ceftriaxone Sodium (Rocephin Iv 1 Gm Duplex) 50 mls @ 100 mls/hr IVPB Q24H [facility] Last Admin: 10/18/16 19:52 Dose: 100 mls/hr Ibuprofen (Motrin Tab) 600 mg PO Q6H PRN PRN Reason: Pain, severe (8-10) Insulin Aspart (Novolog) 0 unit SC ACHS [facility] PRN Reason: Protocol Last Admin: 10/19/16 17:27 Dose: 2 unit Insulin Aspart (Novolog) 40 unit SC AC [facility] Last Admin: 10/19/16 17:27 Dose: 40 unit Insulin Glargine (Lantus) 70 unit SC HS [facility] Lisinopril (Zestril) 20 mg PO DAILY [facility] Last Admin: 10/19/16 10:18 Dose: 20 mg Loratadine (Claritin) 10 mg PO DAILY [facility] Last Admin: 10/19/16 10:23 Dose: 10 mg Metformin HCl (Glucophage) 1,000 mg PO BIDCC [facility] Last Admin: 10/19/16 17:27 Dose: 1,000 mg Methylprednisolone (Solu-Medrol) 40 mg IVP Q12 [facility] Last Admin: 10/19/16 11:17 Dose: 40 mg Pantoprazole Sodium (Protonix Ec Tab) 40 mg PO DAILY [facility] Last Admin: 10/19/16 10:17 Dose: 40 mg Sitagliptin Phosphate (Januvia) 50 mg PO DAILY [facility] Last Admin: 10/19/16 10:17 Dose: 50 mg - Labs Labs: 10/19/16 11:20 10/19/16 11:20 - Constitutional Appears: Non-toxic - Head Exam Head Exam: ATRAUMATIC - Eye Exam Eye Exam: EOMI - ENT Exam ENT Exam: Mucous Membranes Moist - Neck Exam Neck Exam: absent: Lymphadenopathy, Thyromegaly - Respiratory Exam Respiratory Exam: Clear to Ausculation Bilateral. absent: Rales - Cardiovascular Exam Cardiovascular Exam: REGULAR RHYTHM. absent: Murmur - GI/Abdominal Exam GI & Abdominal Exam: Normal Bowel Sounds. absent: Organomegaly - Rectal Exam Rectal Exam: Deferred - Extremities Exam Extremities Exam: Normal Capillary Refill. absent: Calf Tenderness - Neurological Exam Neurological Exam: Alert, Oriented x3 - Psychiatric Exam Psychiatric exam: Normal Mood - Skin Skin Exam: Dry Assessment and Plan (1) Diabetes mellitus Status: Acute (2) Bronchitis Status: Acute (3) Influenza Status: Acute
[2016-10-19] MEDS ORDERED: Pneumococcal 23-Valent Vaccine IM ONE (20:08)
[2016-10-19] MEDS: cefTRIAXone IV 1 gm in Dextros 50 ML IVPB SCH (20:22)
[2016-10-19] MEDS ORDERED: (Lantus) Insulin Glargine, Recombinant SC SCH (22:00)
== END 2016-10-19 20:40 | disposition home or self-care (01) | DRG 194 ==
LOC: C.ER 10:11 → C.9E 15:11 → C.3T 17:38
PROVIDERS: ADMIT Internal Medicine Nephrology; ATTEND Internal Medicine Nephrology
DX: J11.00 Influenza due to unidentified influenza virus with unspecified type of pneumonia (principal); K76.6 Portal hypertension; E11.65 Type 2 diabetes mellitus with hyperglycemia; I10 Essential (primary) hypertension; Z79.4 Long term (current) use of insulin; J45.909 Unspecified asthma, uncomplicated; J20.9 Acute bronchitis, unspecified; E78.5 Hyperlipidemia, unspecified; E66.9 Obesity, unspecified; K86.89 Other specified diseases of pancreas; E86.0 Dehydration; S93.409A Sprain of unspecified ligament of unspecified ankle, initial encounter; X58.XXXA Exposure to other specified factors, initial encounter

== ENCOUNTER 2016-11-01 20:44 | Inpatient (IN) | payer BC ==
--- NOTE | 2016-11-01 21:48 | C.PDOC ---
History Of Present Illness Pt presents with increasing shortness of breath. Speaking in 1-3 word sentences. Was hospitalized recently for pneumonia. Seen his pmd today which sent him here for eval. has had a cxr done today which show r lung infiltrates Time Seen by Provider: 11/01/16 21:48 Chief Complaint (Nursing): Shortness Of Breath History Per: Patient History/Exam Limitations: no limitations Onset/Duration Of Symptoms: Days Current Symptoms Are (Timing): Worse Initiating Event: Upper Respiratory Illness Quality: Aching Exacerbating Factor(s): Exertion, Laying Flat, Coughing Current Respiratory Medications: See Home Med List Severity: Severe Pain Scale Rating Of: 8 Associated Symptoms: Chills, Sweating, Heart Racing. denies: Fever, Anxiety Reports Recently: Seen In ED, Treated By A Physician, Hospitalized Recent travel outside of the [place]: No Additional History Per: Patient Past Medical History Reviewed: Historical Data, Nursing Documentation, Vital Signs Vital Signs: Last Vital Signs Temp 99.4 F 11/01/16 21:19 Pulse 88 11/01/16 23:17 Resp 26 H 11/01/16 23:58 BP 134/77 11/01/16 23:13 Pulse Ox 100 11/01/16 23:58 - Medical History PMH: Asthma, HTN, Pneumonia Family History: States: No Known Family Hx - Social History Hx Tobacco Use: No Hx Alcohol Use: No Hx Substance Use: No - Immunization History Hx Tetanus Toxoid Vaccination: No Hx Influenza Vaccination: Yes Hx Pneumococcal Vaccination: Yes Review Of Systems Constitutional: Positive for: Chills, Sweats, Malaise. Negative for: Fever Eyes: Negative for: Redness ENT: Negative for: Throat Pain Cardiovascular: Negative for: Chest Pain, Palpitations Respiratory: Positive for: Cough, Shortness of Breath Gastrointestinal: Negative for: Nausea, Vomiting, Abdominal Pain Genitourinary: Negative for: Dysuria Musculoskeletal: Negative for: Back Pain Skin: Negative for: Rash, Lesions, Jaundice, Bruising Neurological: Negative for: Weakness Psych: Negative for: Anxiety Physical Exam - Physical Exam Appears: In Acute Distress Skin: Diaphoretic Head: Atraumatic Eye(s): bilateral: Normal Inspection, PERRL, EOMI Oral Mucosa: Dry Lips: No Swelling Throat: No Erythema, No Exudate Neck: Supple Chest: Symmetrical Cardiovascular: Rhythm Regular Respiratory: Decreased Breath Sounds, Rhonchi (r>l) Gastrointestinal/Abdominal: Soft, No Tenderness, No Distention Back: No CVA Tenderness Extremity: Normal ROM, No Tenderness Extremity: Bilateral: Atraumatic, Normal Color And Temperature, Normal ROM Neurological/Psych: Oriented x3, Normal Speech, Normal Cognition Gait: Steady ED Course And Treatment - Laboratory Results Result Diagrams: 11/01/16 21:40 11/01/16 21:38 ECG: Interpreted By Me, Viewed By Me ECG Rhythm: Sinus Tachycardia (132), Nonspecific Changes O2 Sat by Pulse Oximetry: 92 Pulse Ox Interpretation: Abnormal - Radiology CXR: Interpreted by Me, Viewed By Me CXR Interpretation: Yes: Infiltrates (rlung infiltrates) Progress Note: blood work, nebs, abg, bipap Critical Care Time - Critical Care Note Total Time (in mins): 40 Documented critical care: time excludes all time spent performing seperately billable procedures. Disposition Discussed With : Brando Hernandez Comment: accepted the pt on his service and took over the care at 11:50PM Doctor Will See Patient In The: Hospital Counseled Patient/Family Regarding: Studies Performed, Diagnosis - Disposition Referrals: William Beal DO [Primary Care Provider] - Disposition: HOSPITALIZED Disposition Time: 21:48 Condition: GUARDED - POA Present On Arrival: Poor Glycemic Control - Clinical Impression Clinical Impression: Dyspnea, Respiratory distress, Pneumonia, Pleural effusion on right Decision To Admit - Pt Status Changed To: Hospital Disposition Of: Inpatient - Admit Certification Admit to Inpatient:: After my assessment, the patient will require hospitalization for at least two midnights. This is because of the severity of symptoms shown, intensity of services needed, and/or the medical risk in this patient being treated as an outpatient. - InPatient: Physician Admission Certification: I certify that this patient requires 2 or more midnights of care for the following reason:: After my assessment, the patient will require hospitalization for at least two midnights. This is because of the severity of symptoms shown, intensity of services needed, and/or the medical risk in this patient being treated as an outpatient. - . Bed Request Type: Telemetry Admitting Physician: Brando Hernandez Patient Diagnosis: Dyspnea, Respiratory distress, Pneumonia, Pleural effusion on right
[2016-11-01 21:55] LABS: BASO % 0.2 % (0.0-2.0); EOS % 0.4 % (0.0-4.0); HEMATOCRIT 26.6 % (35.0-51.0); LYMPH # 1.1 K/uL (1.0-4.3); LYMPH % 14.1 % (20.0-40.0); MEAN CELL VOLUME 85.1 fL (80.0-94.0); MEAN CORPUSCULAR HEMOGLOBIN 27.7 pg (27.0-31.0); MEAN CORPUSCULAR HGB CONC 32.5 g/dL (33.0-37.0); MEAN PLATELET VOLUME 9.2 fL (7.2-11.7); MONO # 0.8 K/uL (0.0-0.8); MONO % 9.8 % (0.0-10.0); RED CELL DISTRIBUTION WIDTH 13.8 % (11.5-14.5)
[2016-11-01 21:57] LABS: CHLORIDE 91 mmol/L (98-107)
[2016-11-01 21:58] LABS: POTASSIUM 4.3 mmol/L (3.6-5.2); SODIUM 127 mmol/L (132-148)
[2016-11-01 22:00] LABS: ALB/GLOB RATIO 0.7 (1.0-2.1); ALKALINE PHOSPHATASE 94 U/L (38-126); AST/SGOT 24 U/L (17-59); CARBON DIOXIDE 22 mmol/L (22-30); GFR AFRICAN-AMERICAN > 60; TOTAL PROTEIN 7.6 g/dL (6.3-8.3)
[2016-11-01 22:01] LABS: ALT/SGPT 22 U/L (21-72); BLOOD UREA NITROGEN 12 mg/dL (9-20); CALCIUM 8.6 mg/dl (8.6-10.4); GLUCOSE,RANDOM 308 mg/dL (75-110)
[2016-11-01 22:06] LABS: INR 1.4
[2016-11-01] MEDS ORDERED: Iodixanol 320 MG/ML 100 ML BOTTLE IV ONE (22:14)
[2016-11-01] MEDS ORDERED: Enoxaparin 40 mg Syringe SC STA (22:23)
[2016-11-01] MEDS: Albuterol-Ipratrop 3 mg / 0.5 (3 ml) UD IH SCH ×3 (22:40→23:05)
[2016-11-01] MEDS ORDERED: Enoxaparin 60 mg Syringe ONE (22:52)
[2016-11-01] MEDS ORDERED: Morphine 4 MG/ML VIAL ONE (23:11)
[2016-11-01] MEDS ORDERED: Imipenem/Cilastatin 500 MG in Dextrose 5% In Water 100 ML IVPB SCH (23:45)
[2016-11-02 00:57] LABS: ABG ALLEN TEST POS; ARTERIAL BLOOD HGB O2 SAT 97.4 % (95.0-98.0); CARBOXYHEMOGLOBIN 1.5 % (0.5-1.5); DRAW SITE RR; HHB 0.4 % (0.0-5.0); METHEMOGLOBIN 0.7 % (0.0-3.0)
[2016-11-02] MEDS ORDERED: Albuterol-Ipratrop 3 mg / 0.5 (3 ml) UD INH SCH (02:00)
[2016-11-02] MEDS ORDERED: Moxifloxacin IV 400mg/250ml NS 400 MG/250 ML BAG IVPB ONE (02:21)
--- NOTE | 2016-11-02 02:31 | CP.PCM.CON ---
History of Present Illness - History of Present Illness History of Present Illness: This is a 40 year old male with DM, HTN and obesity diagnosed one year back who was recently discharged from this hospital for pneumonia. He came last ngiiht to ER for sob. On arrival he was tachypneic, tachycardic, diaphoretic, very sob , He was treated with bipap and IV antibiotics with remarkable improvement. As of now he says he feels much better, tachycardic, breathing below 20 bpm and able to speak in full sentences and albe to be off bpap for a little bit. Ct scan of the chest reveals right parapneumonic effusion (present on x-ray from last admission). Denies cough, sputum, vomit, abdominal pain. 10 ros asked and negative except for above PMH as above FH not relevant for the case social: NKDA PE: bp 150/72 mmhg, hr 114 bpm, rr 18 bpm, T 98.6, O2 100% on 40% FiO2 middle age obese male in no acute distress aaox3 s1, s2 sinus tachycardia lungs good bilateral air of entry from posterior auscultation, decreased only in right lower lobe abdomen global, soft good muscle tone/strength skin intact a/p: right pneumonia with parapneumonic effusion: much improved, continue bpap, decrease settings to 10/5/40%, pulls great volumes > 700 mL, rate below 20, tolerated being off bpap now, but will continue except for meals. Consult cardiothoraxics, I believe effussion is loculated and might need VATS, defer CT for now since stable and will benefit better form above procedure. Imipenem, vancomycin and moxifloxacin, doses adjusted for weight, GFR wnl. Liquid diet only for now in view of possible procedure DM: takes oral hypoglycemics, change to long and short acting insulin for now. HTN: start norvasc Past Patient History - Infectious Disease Hx of Infectious Diseases: None - Past Medical History & Family History Past Medical History?: Yes - Past Social History Smoking Status: Never Smoked - CARDIAC Hx Hypertension: Yes - PULMONARY Hx Asthma: Yes Hx Pneumonia: Yes - ENDOCRINE/METABOLIC Hx Diabetes Mellitus Type 2: Yes - MUSCULOSKELETAL/RHEUMATOLOGICAL Hx Falls: Yes - PSYCHIATRIC Hx Substance Use: No - SURGICAL HISTORY Other/Comment: I /d right big toe - ANESTHESIA Hx Anesthesia: Yes Hx Anesthesia Reactions: No Hx Malignant Hyperthermia: No Meds Allergies/Adverse Reactions: Allergies Allergy/AdvReac Type Severity Reaction Status Date / Time No Known Allergies Allergy Verified 11/01/16 21:15 - Medications Medications: Current Medications Acetaminophen (Tylenol 325mg Tab) 650 mg PO Q6 PRN PRN Reason: Pain, moderate (4-7) Amlodipine Besylate (Norvasc) 10 mg PO DAILY [facility] Enoxaparin Sodium (Lovenox) 40 mg SC DAILY [facility] Famotidine (Pepcid) 20 mg PO DAILY [facility] Imipenem/Cilastatin Sodium 500 (mg/ Sodium Chloride) 100 mls @ 100 mls/hr IVPB Q8H [facility] Last Admin: 11/02/16 00:52 Dose: Not Given Sodium Chloride (Sodium Chloride 0.9%) 1,000 mls @ 50 mls/hr IV .Q20H [facility] Vancomycin HCl 1,500 mg/ (Sodium Chloride) 250 mls @ 166.6 mls/hr IVPB Q12H [facility] Insulin Aspart (Novolog) 0 unit SC ACHS [facility] PRN Reason: Protocol Insulin Detemir (Levemir) 8 unit SC HS [facility] Results - Vital Signs Recent Vital Signs: Last Vital Signs Temp 98.9 F 11/02/16 00:13 Pulse 121 H 11/02/16 01:30 Resp 16 11/02/16 01:15 BP 150/84 11/02/16 01:15 Pulse Ox 100 11/02/16 01:15 - Labs Result Diagrams: 11/01/16 21:40 11/01/16 21:38 Labs: Laboratory Results - last 24 hr 11/02/16 00:55 Puncture Site Rr pCO2 26 L pO2 442 H HCO3 23.9 ABG pH 7.51 H ABG Total CO2 21.5 L ABG O2 Saturation 99.6 H ABG Base Excess -1.3 ABG Hemoglobin 10.7 L ABG Carboxyhemoglobin 1.5 POC ABG HHb (Measured) 0.4 ABG Methemoglobin 0.7 Hayden Test Pos A-a O2 Difference 239.0 Respiratory Index 0.5 Hgb O2 Saturation 97.4 FiO2 100.0 Inspiratory BiPAP 12 Expiratory BiPAP 6
[2016-11-02] MEDS: Sodium Chloride 0.9% 1,000 ML IV SCH (02:50)
[2016-11-02 06:28] LABS: BASO % 0.3 % (0.0-2.0); EOS % 0.6 % (0.0-4.0); HEMATOCRIT 24.4 % (35.0-51.0); LYMPH % 16.2 % (20.0-40.0); MEAN CELL VOLUME 85.4 fL (80.0-94.0); MEAN CORPUSCULAR HEMOGLOBIN 27.6 pg (27.0-31.0); MEAN CORPUSCULAR HGB CONC 32.3 g/dL (33.0-37.0); MEAN PLATELET VOLUME 9.2 fL (7.2-11.7); MONO # 0.6 K/uL (0.0-0.8); MONO % 9.9 % (0.0-10.0); WHITE BLOOD COUNT 6.5 K/uL (4.8-10.8)
[2016-11-02 06:41] LABS: CHLORIDE 95 mmol/L (98-107)
[2016-11-02 06:42] LABS: POTASSIUM 3.7 mmol/L (3.6-5.2); SODIUM 129 mmol/L (132-148)
[2016-11-02 06:44] LABS: ALB/GLOB RATIO 0.7 (1.0-2.1); ALKALINE PHOSPHATASE 88 U/L (38-126); ALT/SGPT 17 U/L (21-72); AST/SGOT 21 U/L (17-59); BILIRUBIN,TOTAL 0.5 mg/dL (0.2-1.3); BLOOD UREA NITROGEN 12 mg/dL (9-20); CARBON DIOXIDE 20 mmol/L (22-30); GFR AFRICAN-AMERICAN > 60; GLUCOSE,RANDOM 286 mg/dL (75-110); PHOSPHOROUS 3.8 mg/dL (2.5-4.5)
[2016-11-02 06:45] LABS: CALCIUM 7.9 mg/dl (8.6-10.4); MAGNESIUM 1.7 mg/dL (1.6-2.3)
[2016-11-02] MEDS ORDERED: (Novolin R) Insulin Human Regular 100 units/ml vial SC SCH (07:30)
[2016-11-02] MEDS: (Novolog) Insulin Aspart, Recombinant 100 u/ml 10 ml vial SC SCH ×4 (07:57→21:53)
[2016-11-02] MEDS ORDERED: Fluticasone-Salmeterol 250-50mcg Diskus IH SCH (08:45)
--- NOTE | 2016-11-02 09:10 | CT ---
PROCEDURE: CT Chest with contrast (Pulmonary Angiogram) HISTORY: Shortness of breath and tachycardia COMPARISON: None available. TECHNIQUE: Axial computed tomography images were obtained of the chest in the pulmonary arterial phase of enhancement. Coronal and sagittal reformatted images were created and reviewed. Intravenous contrast dose: 100 mL Visipaque Radiation dose: Total exam DLP = 589.40 mGy-cm. This CT exam was performed using one or more of the following dose reduction techniques: Automated exposure control, adjustment of the mA and/or kV according to patient size, and/or use of iterative reconstruction technique. FINDINGS: PULMONARY ARTERIES: There are no central filling defects in the pulmonary arteries to suggest acute pulmonary embolism. AORTA: The aorta is normal in caliber. There is no evidence of dissection or aneurysm. LUNGS: There is a large right pleural effusion and compressive atelectasis in the right lung. There is mild loculation anterior inferiorly. The left lung is well inflated and clear. There is no left lung consolidation or pleural effusion. There is subsegmental atelectasis in the left lung. PLEURAL SPACES: No pneumothorax. HEART: The heart is normal in size. No pericardial effusion. LYMPH NODES: No pathologic lymphadenopathy. BONES, CHEST WALL: Mild multilevel degenerative disc disease. No fracture or destructive lesion OTHER FINDINGS: There is minimal gynecomastia. IMPRESSION: No CT evidence for acute pulmonary embolism. Large right pleural effusion with compressive atelectasis in the lower lobe. Superimposed pneumonia cannot be excluded. Follow-up is advised. A preliminary report was provided by [facility].
--- NOTE | 2016-11-02 11:07 | CP.PCM.CON ---
<Florencio Wade - Last Filed: 11/02/16 14:12> History of Present Illness - History of Present Illness History of Present Illness: Cardiology Consultation Note Dr. Lin CC: Shortness of Breath HPI: This is a 40 year old male with past medical history significant for type 2 DM, hypertension, and obesity presenting for cardiac evaluation for cardiac risk assessment prior to VATS procedure. This patient presented to the ED yesterday (11/01) with difficulty breathing after being discharged from [facility] on (10/19) for pneumonia. Patient states that he experiences chest pain and back pain with deep respiration, but that the quality of his chest pain does not change with palpation or body position. He states that previous to developing pneumonia, he did not get chest pain or SOB with exertion. He denies edema in his legs or recent weight gain. He denies any prior cardiac issues. Patient is currently anemic (Hg 7.9) and is being transfused with 2 units in the ICU prior to surgery. At baseline patient denies difficulty with ADL/IADLs. Patient denies history of syncope. Past Medical History: type 2 DM, hypertension, obesity Social: never smoker Surgeries: Arthroscopy Knee (17 y/o) Allergies: NKDA Family History: No cardiac history, Mom- Type 2 DM, Hypertension Review of Systems - Constitutional Constitutional: Chills, Fever - EENT Eyes: absent: Blurred Vision, Change in Vision Ears: absent: Decreased Hearing, Tinnitus Nose/Mouth/Throat: absent: Nose Pain, Facial Pain, Neck Pain - Cardiovascular Cardiovascular: Chest Pain, Chest Pain at Rest. absent: Lightheadedness, Orthopnea, Paroxysmal Nocturnal Dyspnea, Syncope - Respiratory Respiratory: Dyspnea, Pain on Inspiration, Pain with Coughing. absent: Cough, Wheezing - Gastrointestinal Gastrointestinal: absent: Abdominal Pain, Constipation, Diarrhea, Nausea, Vomiting - Genitourinary Genitourinary: absent: Change in Urinary Stream, Difficulty Urinating - Musculoskeletal Musculoskeletal: Back Pain (with respiration). 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 absent: Frequent Falls, Memory Loss, Syncope, Tremor, Vertigo, Weakness - Endocrine Endocrine: absent: Cold Intolorance, Heat Intolorance, Polydipsia, Polyphagia Past Patient History - Infectious Disease Hx of Infectious Diseases: None - Past Medical History & Family History Past Medical History?: Yes - Past Social History Smoking Status: Never Smoked - CARDIAC Hx Hypertension: Yes - PULMONARY Hx Asthma: Yes Hx Pneumonia: Yes - NEUROLOGICAL Hx Neurological Disorder: No - HEENT Other/Comment: uses bifocal eye glasses - RENAL Hx Chronic Kidney Disease: No - ENDOCRINE/METABOLIC Hx Diabetes Mellitus Type 2: Yes - HEMATOLOGICAL/ONCOLOGICAL Hx Blood Disorders: No - INTEGUMENTARY Hx Dermatological Problems: No - MUSCULOSKELETAL/RHEUMATOLOGICAL Hx Falls: No - GASTROINTESTINAL Hx Gastrointestinal Disorders: No - GENITOURINARY/GYNECOLOGICAL Hx Genitourinary Disorders: No - PSYCHIATRIC Hx Substance Use: No - SURGICAL HISTORY Other/Comment: I /d right big toe - ANESTHESIA Hx Anesthesia: Yes Hx Anesthesia Reactions: No Hx Malignant Hyperthermia: No Meds Allergies/Adverse Reactions: Allergies Allergy/AdvReac Type Severity Reaction Status Date / Time No Known Allergies Allergy Verified 12/08/16 12:22 - Medications Medications: Current Medications Acetaminophen (Tylenol 325mg Tab) 650 mg PO Q6 PRN PRN Reason: Pain, moderate (4-7) Albuterol/Ipratropium (Duoneb 3 Mg/0.5 Mg (3 Ml) Ud) 3 ml INH RQ6 [facility] Famotidine (Pepcid) 20 mg PO DAILY [facility] Last Admin: 11/02/16 09:32 Dose: 20 mg Heparin Sodium (Porcine) (Heparin) 5,000 units SC Q12 [facility] Imipenem/Cilastatin Sodium 500 (mg/ Sodium Chloride) 100 mls @ 100 mls/hr IVPB Q8H [facility] Last Admin: 11/02/16 09:32 Dose: 100 mls/hr Sodium Chloride (Sodium Chloride 0.9%) 1,000 mls @ 50 mls/hr IV .Q20H [facility] Last Admin: 11/02/16 02:50 Dose: 50 mls/hr Vancomycin HCl 1,500 mg/ (Sodium Chloride) 250 mls @ 166.6 mls/hr IVPB Q12H [facility] Last Admin: 11/02/16 03:41 Dose: 166.6 mls/hr Insulin Aspart (Novolog) 0 unit SC ACHS [facility] PRN Reason: Protocol Last Admin: 11/02/16 07:57 Dose: 10 unit Insulin Detemir (Levemir) 8 unit SC HS [facility] Ketorolac Tromethamine (Toradol) 30 mg IM Q6 PRN PRN Reason: MODERATE PAIN (4-7) Last Admin: 11/02/16 10:36 Dose: 30 mg Lisinopril (Zestril) 20 mg PO DAILY [facility] Last Admin: 11/02/16 09:33 Dose: 20 mg Ondansetron HCl (Zofran Inj) 4 mg IVP Q6H PRN PRN Reason: Nausea/Vomiting Physical Exam - Constitutional Appears: Well, No Acute Distress - Head Exam Head Exam: ATRAUMATIC, NORMAL INSPECTION, NORMOCEPHALIC - Eye Exam Eye Exam: EOMI, Normal appearance Pupil Exam: NORMAL ACCOMODATION - ENT Exam ENT Exam: Mucous Membranes Moist, Normal Exam - Neck Exam Neck exam: Positive for: Full Rom, Normal Inspection. Negative for: Tenderness - Respiratory Exam Respiratory Exam: Decreased Breath Sounds (right lung base), NORMAL BREATHING PATTERN. absent: Accessory Muscle Use, Clear to Auscultation Bilateral, Rales, Rhonchi, Wheezes, Respiratory Distress - Cardiovascular Exam Cardiovascular Exam: Tachycardia, REGULAR RHYTHM, +S1, +S2. absent: Diastolic murmur, RRR, Systolic Murmur - GI/Abdominal Exam GI & Abdominal Exam: Normal Bowel Sounds, Soft. absent: Distended, Firm, Guarding, Tenderness - Extremities Exam Extremities exam: Positive for: normal capillary refill, normal inspection, pedal pulses present - Back Exam Back exam: NORMAL INSPECTION. absent: CVA tenderness (L), CVA tenderness (R) - Neurological Exam Neurological exam: Alert, CN II-XII Intact, Oriented x3 - Skin Skin Exam: Dry, Intact, Normal Color, Warm Results - Vital Signs Recent Vital Signs: Last Vital Signs Temp 99.6 F 11/02/16 04:00 Pulse 110 H 11/02/16 07:00 Resp 15 11/02/16 07:00 BP 148/94 H 11/02/16 07:02 Pulse Ox 99 11/02/16 07:00 - Labs Result Diagrams: 11/02/16 06:18 11/02/16 06:18 Labs: Laboratory Results - last 24 hr 11/02/16 11/02/16 11/02/16 00:55 06:18 06:18 WBC 6.5 RBC 2.86 L Hgb 7.9 L Hct 24.4 L MCV 85.4 MCH 27.6 MCHC 32.3 L RDW 14.0 Plt Count 211 MPV 9.2 Neut % (Auto) 73.0 Lymph % (Auto) 16.2 L [place] % (Auto) 9.9 Eos % (Auto) 0.6 Baso % (Auto) 0.3 Neut # 4.7 Lymph # 1.0 [place] # 0.6 Eos # 0.0 Baso # 0.0 Puncture Site Rr pCO2 26 L pO2 442 H HCO3 23.9 ABG pH 7.51 H ABG Total CO2 21.5 L ABG O2 Saturation 99.6 H ABG Base Excess -1.3 ABG Hemoglobin 10.7 L ABG Carboxyhemoglobin 1.5 POC ABG HHb (Measured) 0.4 ABG Methemoglobin 0.7 Hayden Test Pos A-a O2 Difference 239.0 Respiratory Index 0.5 Hgb O2 Saturation 97.4 FiO2 100.0 Inspiratory BiPAP 12 Expiratory BiPAP 6 Sodium 129 L Potassium 3.7 Chloride 95 L Carbon Dioxide 20 L Anion Gap 18 BUN 12 Creatinine 0.5 L Est GFR ( Amer) > 60 Est GFR (Non-Af Amer) > 60 POC Glucose (mg/dL) Random Glucose 286 H Calcium 7.9 L Phosphorus 3.8 Magnesium 1.7 Total Bilirubin 0.5 AST 21 ALT 17 L D Alkaline Phosphatase 88 Total Protein 7.0 Albumin 2.9 L Globulin 4.0 H Albumin/Globulin Ratio 0.7 L Blood Type Antibody Screen 11/02/16 11/02/16 07:44 08:49 WBC RBC Hgb Hct MCV MCH MCHC RDW Plt Count MPV Neut % (Auto) Lymph % (Auto) [place] % (Auto) Eos % (Auto) Baso % (Auto) Neut # Lymph # [place] # Eos # Baso # Puncture Site pCO2 pO2 HCO3 ABG pH ABG Total CO2 ABG O2 Saturation ABG Base Excess ABG Hemoglobin ABG Carboxyhemoglobin POC ABG HHb (Measured) ABG Methemoglobin Hayden Test A-a O2 Difference Respiratory Index Hgb O2 Saturation FiO2 Inspiratory BiPAP Expiratory BiPAP Sodium Potassium Chloride Carbon Dioxide Anion Gap BUN Creatinine Est GFR ( Amer) Est GFR (Non-Af Amer) POC Glucose (mg/dL) 338 H Random Glucose Calcium Phosphorus Magnesium Total Bilirubin AST ALT Alkaline Phosphatase Total Protein Albumin Globulin Albumin/Globulin Ratio Blood Type O POSITIVE Antibody Screen Negative Assessment & Plan (3) Pre-procedural cardiovascular examination Assessment and Plan: 11/02/16 EKG- sinus tachycardia, right axis deviation, normal SD interval, normal QRS duration, prolonged QTc, nonspecific ST/T wave abnormality 11/03/15 Echo- preliminary EF 53%- official read pending Cardiac Risk Assessment- (Low Risk for VATS) - Detsky Score 10: Class I - Low Risk - Jenkins Score 3: Class I - Low Risk - Tunde Score 2- Moderate Risk Benefits of VATs procedure outweigh the risks Continue with preoperative SCIP protcols and measures Troponin negative x 2 (<0.0120 x 2) CK-MB negative x 2 (1.00 > 0.63) BNP 102 (normal) Case Discussed with Dr. Delia Wade PGY1 Status: Acute - Date & Time Date: 11/02/16 Time: 11:14 <Saravanan Lin - Last Filed: 12/28/16 10:16> Results - Vital Signs Recent Vital Signs: Last Vital Signs Temp 97.7 F 11/30/16 08:06 Pulse 82 11/30/16 08:06 Resp 18 11/30/16 08:06 BP 120/83 11/30/16 08:06 Pulse Ox 95 11/30/16 08:06 - Labs Result Diagrams: 11/29/16 07:08 11/29/16 07:08 Assessment & Plan (1) HTN (hypertension) Status: Chronic (2) Tachycardia Status: Resolved Attending/Attestation - Attestation I have personally seen and examined this patient.: Yes I have fully participated in the care of the patient.: Yes I have reviewed all pertinent clinical information: Yes Notes (Text): 12/28/16 10:15 will follow closely continue iv hydration will treat underlying cause continue abx
--- NOTE | 2016-11-02 11:15 | CP.PCM.CON ---
History of Present Illness - History of Present Illness History of Present Illness: CT Surgery: Dr. Villagomez 40M w/ PMHx of DM, HTN, presented to the ED w/ complaint of SOB. Patient presented to the ED on 11/01 w/ complaints of SOB. Patient reports he was discharged from [facility] on 10/19 after being admitted on 10/13 for pneumonia. Patient stated that he went to his communication instructor because of progression of SOB, who ordered CXR for him and after being aware of findings instructed patient to go to ED. Currently patient reports sharp pain along right side of his ribs which radiates to the back. Patient is able to speak in full sentences w/o BIPAP and still maintains O2 Sat above 95. Patient denies fever/ chills, n/v, abdominal pain. Reports pain with inspiration and shortness of breath. Past Medical History: type 2 DM, hypertension, obesity Social: never smoker Surgeries: Arthroscopy Knee (17 y/o) Allergies: NKDA Family History: No cardiac history, Mom- Type 2 DM, Hypertension Review of Systems - Review of Systems Review of Systems: 12 pt ROS carried out, unremarkable; except as stated in HPI Past Patient History - Infectious Disease Hx of Infectious Diseases: None - Past Medical History & Family History Past Medical History?: Yes - Past Social History Smoking Status: Never Smoked - CARDIAC Hx Hypertension: Yes - PULMONARY Hx Asthma: Yes Hx Pneumonia: Yes - NEUROLOGICAL Hx Neurological Disorder: No - HEENT Other/Comment: uses bifocal eye glasses - RENAL Hx Chronic Kidney Disease: No - ENDOCRINE/METABOLIC Hx Diabetes Mellitus Type 2: Yes - HEMATOLOGICAL/ONCOLOGICAL Hx Blood Disorders: No - INTEGUMENTARY Hx Dermatological Problems: No - MUSCULOSKELETAL/RHEUMATOLOGICAL Hx Falls: No - GASTROINTESTINAL Hx Gastrointestinal Disorders: No - GENITOURINARY/GYNECOLOGICAL Hx Genitourinary Disorders: No - PSYCHIATRIC Hx Substance Use: No - SURGICAL HISTORY Other/Comment: I /d right big toe - ANESTHESIA Hx Anesthesia: Yes Hx Anesthesia Reactions: No Hx Malignant Hyperthermia: No Meds Allergies/Adverse Reactions: Allergies Allergy/AdvReac Type Severity Reaction Status Date / Time No Known Allergies Allergy Verified 11/01/16 21:15 - Medications Medications: Current Medications Acetaminophen (Tylenol 325mg Tab) 650 mg PO Q6 PRN PRN Reason: Pain, moderate (4-7) Albuterol/Ipratropium (Duoneb 3 Mg/0.5 Mg (3 Ml) Ud) 3 ml INH RQ6 [facility] Famotidine (Pepcid) 20 mg PO DAILY [facility] Last Admin: 11/02/16 09:32 Dose: 20 mg Heparin Sodium (Porcine) (Heparin) 5,000 units SC Q12 [facility] Imipenem/Cilastatin Sodium 500 (mg/ Sodium Chloride) 100 mls @ 100 mls/hr IVPB Q8H [facility] Last Admin: 11/02/16 09:32 Dose: 100 mls/hr Sodium Chloride (Sodium Chloride 0.9%) 1,000 mls @ 50 mls/hr IV .Q20H [facility] Last Admin: 11/02/16 02:50 Dose: 50 mls/hr Vancomycin HCl 1,500 mg/ (Sodium Chloride) 250 mls @ 166.6 mls/hr IVPB Q12H [facility] Last Admin: 11/02/16 03:41 Dose: 166.6 mls/hr Insulin Aspart (Novolog) 0 unit SC ACHS [facility] PRN Reason: Protocol Last Admin: 11/02/16 07:57 Dose: 10 unit Insulin Detemir (Levemir) 8 unit SC HS [facility] Ketorolac Tromethamine (Toradol) 30 mg IM Q6 PRN PRN Reason: MODERATE PAIN (4-7) Last Admin: 11/02/16 10:36 Dose: 30 mg Lisinopril (Zestril) 20 mg PO DAILY [facility] Last Admin: 11/02/16 09:33 Dose: 20 mg Ondansetron HCl (Zofran Inj) 4 mg IVP Q6H PRN PRN Reason: Nausea/Vomiting Physical Exam - Constitutional Appears: Non-toxic, No Acute Distress - Head Exam Head Exam: NORMOCEPHALIC - Eye Exam Eye Exam: Normal appearance - ENT Exam ENT Exam: Mucous Membranes Moist - Respiratory Exam Respiratory Exam: Decreased Breath Sounds - Cardiovascular Exam Cardiovascular Exam: Tachycardia, +S1, +S2 - Neurological Exam Neurological exam: Alert, Oriented x3 - Psychiatric Exam Psychiatric exam: Normal Mood - Skin Skin Exam: Dry, Intact Results - Vital Signs Recent Vital Signs: Last Vital Signs Temp 99.6 F 11/02/16 04:00 Pulse 110 H 11/02/16 07:00 Resp 15 11/02/16 07:00 BP 148/94 H 11/02/16 07:02 Pulse Ox 99 11/02/16 07:00 - Labs Result Diagrams: 11/13/16 08:26 11/13/16 08:26 Labs: Laboratory Results - last 24 hr 11/02/16 11/02/16 11/02/16 00:55 06:18 06:18 WBC 6.5 RBC 2.86 L Hgb 7.9 L Hct 24.4 L MCV 85.4 MCH 27.6 MCHC 32.3 L RDW 14.0 Plt Count 211 MPV 9.2 Neut % (Auto) 73.0 Lymph % (Auto) 16.2 L [place] % (Auto) 9.9 Eos % (Auto) 0.6 Baso % (Auto) 0.3 Neut # 4.7 Lymph # 1.0 [place] # 0.6 Eos # 0.0 Baso # 0.0 Puncture Site Rr pCO2 26 L pO2 442 H HCO3 23.9 ABG pH 7.51 H ABG Total CO2 21.5 L ABG O2 Saturation 99.6 H ABG Base Excess -1.3 ABG Hemoglobin 10.7 L ABG Carboxyhemoglobin 1.5 POC ABG HHb (Measured) 0.4 ABG Methemoglobin 0.7 [place] Test Pos A-a O2 Difference 239.0 Respiratory Index 0.5 Hgb O2 Saturation 97.4 FiO2 100.0 Inspiratory BiPAP 12 Expiratory BiPAP 6 Sodium 129 L Potassium 3.7 Chloride 95 L Carbon Dioxide 20 L Anion Gap 18 BUN 12 Creatinine 0.5 L Est GFR ( Amer) > 60 Est GFR (Non-Af Amer) > 60 POC Glucose (mg/dL) Random Glucose 286 H Calcium 7.9 L Phosphorus 3.8 Magnesium 1.7 Total Bilirubin 0.5 AST 21 ALT 17 L D Alkaline Phosphatase 88 Total Protein 7.0 Albumin 2.9 L Globulin 4.0 H Albumin/Globulin Ratio 0.7 L Blood Type Antibody Screen 11/02/16 11/02/16 07:44 08:49 WBC RBC Hgb Hct MCV MCH MCHC RDW Plt Count MPV Neut % (Auto) Lymph % (Auto) [place] % (Auto) Eos % (Auto) Baso % (Auto) Neut # Lymph # [place] # Eos # Baso # Puncture Site pCO2 pO2 HCO3 ABG pH ABG Total CO2 ABG O2 Saturation ABG Base Excess ABG Hemoglobin ABG Carboxyhemoglobin POC ABG HHb (Measured) ABG Methemoglobin [place]den Test A-a O2 Difference Respiratory Index Hgb O2 Saturation FiO2 Inspiratory BiPAP Expiratory BiPAP Sodium Potassium Chloride Carbon Dioxide Anion Gap BUN Creatinine Est GFR ( Amer) Est GFR (Non-Af Amer) POC Glucose (mg/dL) 338 H Random Glucose Calcium Phosphorus Magnesium Total Bilirubin AST ALT Alkaline Phosphatase Total Protein Albumin Globulin Albumin/Globulin Ratio Blood Type O POSITIVE Antibody Screen Negative - Imaging and Cardiology CT scan - chest Status: Image reviewed by me, Report reviewed by me Assessment & Plan - Assessment and Plan (Free Text) Assessment: 40M w/ empyema 2/2 pneumonia -CT of chest: Large R loculated empyema -Will plan for VATS w/ decortication tomorrow -Cardiac clearance -NPO past midnight -IVF -Abx -Type & Cross -Medical care as per ICU team -Gregorio Villagomez
[2016-11-02] MEDS ORDERED: Phytonadione 10 mg/ml Inj (Adult) SC STA (11:29)
--- NOTE | 2016-11-02 11:42 | CP.CCUPN ---
<Martha Cottrell - Last Filed: 11/02/16 13:01> CCU Subjective - Physician Review Subjective (Free Text): Patient was seen and examined at bedside. Currently patient is on BiPAP with settings of: satting at 100%. Patient reported some back pain and pain on deep inspiration. Patient will have cardiac clearance by Dr. Lin. Patient be will be held NPO after midnight for VATs procedure tomorrow with Dr. Villagomez. CCU Objective - Vital Signs / Intake & Output Intake and Output (Last 8hrs): Intake & Output 11/01/16 11/02/16 11/02/16 22:59 06:59 14:59 Intake Total 670 50 Output Total 0 0 Balance 670 50 Intake: Intake, IV Amount 550 50 left AC side port 250 left antecubital 300 50 Oral 120 0 Output: Stool 0 0 Other: Voiding Method Toilet # Voids Urine, Voided 0 0 - Physical Exam Head: Positive for: Atraumatic, Normocephalic Pupils: Positive for: PERRL Extroacular Muscles: Positive for: EOMI Conjunctiva: Positive for: Normal Mouth: Positive for: Moist Mucous Membranes Respiratory/Chest: Positive for: Decreased Breath Sounds, Other (on BIPAP). Negative for: Respiratory Distress, Accessory Muscle Use Cardiovascular: Positive for: Regular Rate and Rhythm, Normal S1, S2 Abdomen: Positive for: Normal Bowel Sounds. Negative for: Tenderness, Distention Upper Extremity: Positive for: Normal Inspection, Normal ROM, NORMAL PULSES. Negative for: Cyanosis, Edema Lower Extremity: Positive for: Normal Inspection, NORMAL PULSES. Negative for: Edema, CALF TENDERNESS Neurological: Positive for: GCS=15, CN II-XII Intact Skin: Positive for: Warm, Dry, Normal Color - Medications Active Medications: Active Medications Generic Name Dose Route Start Last Admin Trade Name Freq PRN Reason Stop Dose Admin Acetaminophen 650 mg 11/02/16 00:28 Tylenol 325mg Tab PO Q6 PRN Pain, moderate (4-7) Albuterol/Ipratropium 3 ml 11/02/16 14:00 Duoneb 3 Mg/0.5 Mg (3 Ml) Ud INH RQ6 SHANNON Famotidine 20 mg 11/02/16 10:00 11/02/16 09:32 Pepcid PO 20 mg DAILY SHANNON Administration Heparin Sodium (Porcine) 5,000 units 11/03/16 10:00 Heparin SC Q12 SHANNON Imipenem/Cilastatin Sodium 500 100 mls @ 100 mls/hr 11/02/16 00:45 11/02/16 09:32 mg/ Sodium Chloride IVPB 100 mls/hr Q8H SHANNON Administration Sodium Chloride 1,000 mls @ 50 mls/hr 11/02/16 02:15 11/02/16 02:50 Sodium Chloride 0.9% IV 50 mls/hr .Q20H SHANNON Administration Vancomycin HCl 1,500 mg/ 250 mls @ 166.6 mls/hr 11/02/16 02:15 11/02/16 03:41 Sodium Chloride IVPB 166.6 mls/hr Q12H SHANNON Administration Insulin Aspart 0 unit 11/02/16 07:30 11/02/16 07:57 Novolog SC 10 unit ACHS SHANNON Administration Protocol Insulin Detemir 8 unit 11/02/16 22:00 Levemir SC [facility] Ketorolac Tromethamine 30 mg 11/02/16 10:04 11/02/16 10:36 Toradol IM 30 mg Q6 PRN Administration MODERATE PAIN (4-7) Lisinopril 20 mg 11/02/16 10:00 11/02/16 09:33 Zestril PO 20 mg DAILY SHANNON Administration Ondansetron HCl 4 mg 11/02/16 08:27 Zofran Inj IVP Q6H PRN Nausea/Vomiting - Patient Studies Lab Studies: Lab Studies 11/02/16 11/02/16 11/02/16 Range/Units 08:49 07:44 06:18 WBC (4.8-10.8) K/uL RBC (4.40-5.90) Mil/uL Hgb (12.0-18.0) g/dL Hct (35.0-51.0) % MCV (80.0-94.0) fL MCH (27.0-31.0) pg MCHC (33.0-37.0) g/dL RDW (11.5-14.5) % Plt Count (130-400) K/uL MPV (7.2-11.7) fL Neut % (Auto) (50.0-75.0) % Lymph % (Auto) (20.0-40.0) % Nye % (Auto) (0.0-10.0) % Eos % (Auto) (0.0-4.0) % Baso % (Auto) (0.0-2.0) % Neut # (1.8-7.0) K/uL Lymph # (1.0-4.3) K/uL Nye # (0.0-0.8) K/uL Eos # (0.0-0.7) K/uL Baso # (0.0-0.2) K/uL Puncture Site pCO2 (35-45) mm/Hg pO2 (80-100) mm/Hg HCO3 (21-28) mmol/L ABG pH (7.35-7.45) ABG Total CO2 (22-28) mmol/L ABG O2 Saturation (95-98) % ABG Base Excess (-2.0-3.0) mmol/L ABG Hemoglobin (11.7-17.4) g/dL ABG Carboxyhemoglobin (0.5-1.5) % POC ABG HHb (Measured) (0.0-5.0) % ABG Methemoglobin (0.0-3.0) % Hayden Test A-a O2 Difference mm/Hg Respiratory Index Hgb O2 Saturation (95.0-98.0) % FiO2 % Inspiratory BiPAP Expiratory BiPAP Sodium 129 L (132-148) mmol/L Potassium 3.7 (3.6-5.2) mmol/L Chloride 95 L (98-107) mmol/L Carbon Dioxide 20 L (22-30) mmol/L Anion Gap 18 (10-20) BUN 12 (9-20) mg/dL Creatinine 0.5 L (0.8-1.5) MG/DL Est GFR ( Amer) > 60 Est GFR (Non-Af Amer) > 60 POC Glucose (mg/dL) 338 H (65-110) mg/dL Random Glucose 286 H (75-110) mg/dL Calcium 7.9 L (8.6-10.4) mg/dl Phosphorus 3.8 (2.5-4.5) mg/dL Magnesium 1.7 (1.6-2.3) mg/dL Total Bilirubin 0.5 (0.2-1.3) mg/dL AST 21 (17-59) U/L ALT 17 L D (21-72) U/L Alkaline Phosphatase 88 (38-126) U/L Total Protein 7.0 (6.3-8.3) g/dL Albumin 2.9 L (3.5-5.0) g/dL Globulin 4.0 H (2.2-3.9) gm/dL Albumin/Globulin Ratio 0.7 L (1.0-2.1) Blood Type O POSITIVE Antibody Screen Negative 11/02/16 11/02/16 Range/Units 06:18 00:55 WBC 6.5 (4.8-10.8) K/uL RBC 2.86 L (4.40-5.90) Mil/uL Hgb 7.9 L (12.0-18.0) g/dL Hct 24.4 L (35.0-51.0) % MCV 85.4 (80.0-94.0) fL MCH 27.6 (27.0-31.0) pg MCHC 32.3 L (33.0-37.0) g/dL RDW 14.0 (11.5-14.5) % Plt Count 211 (130-400) K/uL MPV 9.2 (7.2-11.7) fL Neut % (Auto) 73.0 (50.0-75.0) % Lymph % (Auto) 16.2 L (20.0-40.0) % Nye % (Auto) 9.9 (0.0-10.0) % Eos % (Auto) 0.6 (0.0-4.0) % Baso % (Auto) 0.3 (0.0-2.0) % Neut # 4.7 (1.8-7.0) K/uL Lymph # 1.0 (1.0-4.3) K/uL Nye # 0.6 (0.0-0.8) K/uL Eos # 0.0 (0.0-0.7) K/uL Baso # 0.0 (0.0-0.2) K/uL Puncture Site Rr pCO2 26 L (35-45) mm/Hg pO2 442 H (80-100) mm/Hg HCO3 23.9 (21-28) mmol/L ABG pH 7.51 H (7.35-7.45) ABG Total CO2 21.5 L (22-28) mmol/L ABG O2 Saturation 99.6 H (95-98) % ABG Base Excess -1.3 (-2.0-3.0) mmol/L ABG Hemoglobin 10.7 L (11.7-17.4) g/dL ABG Carboxyhemoglobin 1.5 (0.5-1.5) % POC ABG HHb (Measured) 0.4 (0.0-5.0) % ABG Methemoglobin 0.7 (0.0-3.0) % Hayden Test Pos A-a O2 Difference 239.0 mm/Hg Respiratory Index 0.5 Hgb O2 Saturation 97.4 (95.0-98.0) % FiO2 100.0 % Inspiratory BiPAP 12 Expiratory BiPAP 6 Sodium (132-148) mmol/L Potassium (3.6-5.2) mmol/L Chloride (98-107) mmol/L Carbon Dioxide (22-30) mmol/L Anion Gap (10-20) BUN (9-20) mg/dL Creatinine (0.8-1.5) MG/DL Est GFR ( Amer) Est GFR (Non-Af Amer) POC Glucose (mg/dL) (65-110) mg/dL Random Glucose (75-110) mg/dL Calcium (8.6-10.4) mg/dl Phosphorus (2.5-4.5) mg/dL Magnesium (1.6-2.3) mg/dL Total Bilirubin (0.2-1.3) mg/dL AST (17-59) U/L ALT (21-72) U/L Alkaline Phosphatase (38-126) U/L Total Protein (6.3-8.3) g/dL Albumin (3.5-5.0) g/dL Globulin (2.2-3.9) gm/dL Albumin/Globulin Ratio (1.0-2.1) Blood Type Antibody Screen Laboratory Results - last 24 hr 11/02/16 11/02/16 11/02/16 00:55 06:18 06:18 WBC 6.5 RBC 2.86 L Hgb 7.9 L Hct 24.4 L MCV 85.4 MCH 27.6 MCHC 32.3 L RDW 14.0 Plt Count 211 MPV 9.2 Neut % (Auto) 73.0 Lymph % (Auto) 16.2 L Nye % (Auto) 9.9 Eos % (Auto) 0.6 Baso % (Auto) 0.3 Neut # 4.7 Lymph # 1.0 Nye # 0.6 Eos # 0.0 Baso # 0.0 Puncture Site Rr pCO2 26 L pO2 442 H HCO3 23.9 ABG pH 7.51 H ABG Total CO2 21.5 L ABG O2 Saturation 99.6 H ABG Base Excess -1.3 ABG Hemoglobin 10.7 L ABG Carboxyhemoglobin 1.5 POC ABG HHb (Measured) 0.4 ABG Methemoglobin 0.7 Hayden Test Pos A-a O2 Difference 239.0 Respiratory Index 0.5 Hgb O2 Saturation 97.4 FiO2 100.0 Inspiratory BiPAP 12 Expiratory BiPAP 6 Sodium 129 L Potassium 3.7 Chloride 95 L Carbon Dioxide 20 L Anion Gap 18 BUN 12 Creatinine 0.5 L Est GFR ( Amer) > 60 Est GFR (Non-Af Amer) > 60 POC Glucose (mg/dL) Random Glucose 286 H Calcium 7.9 L Phosphorus 3.8 Magnesium 1.7 Total Bilirubin 0.5 AST 21 ALT 17 L D Alkaline Phosphatase 88 Total Protein 7.0 Albumin 2.9 L Globulin 4.0 H Albumin/Globulin Ratio 0.7 L Blood Type Antibody Screen 11/02/16 11/02/16 07:44 08:49 WBC RBC Hgb Hct MCV MCH MCHC RDW Plt Count MPV Neut % (Auto) Lymph % (Auto) Nye % (Auto) Eos % (Auto) Baso % (Auto) Neut # Lymph # Nye # Eos # Baso # Puncture Site pCO2 pO2 HCO3 ABG pH ABG Total CO2 ABG O2 Saturation ABG Base Excess ABG Hemoglobin ABG Carboxyhemoglobin POC ABG HHb (Measured) ABG Methemoglobin Hayden Test A-a O2 Difference Respiratory Index Hgb O2 Saturation FiO2 Inspiratory BiPAP Expiratory BiPAP Sodium Potassium Chloride Carbon Dioxide Anion Gap BUN Creatinine Est GFR ( Amer) Est GFR (Non-Af Amer) POC Glucose (mg/dL) 338 H Random Glucose Calcium Phosphorus Magnesium Total Bilirubin AST ALT Alkaline Phosphatase Total Protein Albumin Globulin Albumin/Globulin Ratio Blood Type O POSITIVE Antibody Screen Negative EKG/Cardiology Studies: Cardiology / EKG Studies 11/02/16 11:27 ELECTROCARDIOGRAM Stat Comment: Mode Of Transportation: Reason For Exam: chest pain Fingerstick Blood Sugar Results: 327 Critical Care Progress Note - Nutrition Nutrition: Nutrition Category Date Time Status Consistent Carbohydrate [DIET] Diets 11/02/16 Breakfast Active NPO Diet [DIET] Diets 11/03/16 Breakfast Active Assessment/Plan - Assessment and Plan (Free Text) Assessment: 40M with PMHx of HTN, DM with a recent admission for pneumonia presents to the ED with SOB with a right sided pleural effusion on CT. Plan: Shortness of Breath * CTA - No CT evidence for acute pulmonary embolism. Large right pleural effusion with compressive atelectasis in the lower lobe. Superimposed pneumonia cannot be excluded. Follow-up is advised. * Placed on BiPAP: 10/40% * Primaxin and Vancomycin * Duonebs Q6H * ID consulted- Dr. East - help appreciated * Toradol and Morphine PRN for pain * Dr. Villagomez consulted - VATS procedure tomorrow. Will be kept NPO tonight. Anemia * Baseline hemoglobin: 11-12. This morning 7.9. Patient will be transfused 2 units. * F/U stool occult, if positive GI will be consulted Coagulopathy * INR at 1.4 * Vitamin K 10mg PO * F/U Coags tomorrow morning HTN * Continued home medications: Lisinopril 20mg PO daily * Dr. Lin consulted for cardiac clearance - help appreciated DM * ISS- high and levemir 8 units SC QHS, will restart Metformin and Janumet in 48hrs since patient received contrast for the CTA. * Accuchecks * Monitor Prophylaxis * GI PPX: Pepcid 20mg PO daily * DVT PPX: Heparin Q12H * Zofran PRN * Colace BID * Carb Consistent Diet DW Simba Elliott DO, PGY-1 <Gómez Andino S - Last Filed: 11/02/16 17:41> CCU Objective - Vital Signs / Intake & Output Vital Signs (Last 4 hours): Vital Signs Temp Pulse Resp BP Pulse Ox 11/02/16 16:30 98.3 F 113 H 24 151/98 H 95 11/02/16 16:15 98.6 F 108 H 21 133/81 11/02/16 16:00 106 H 24 95 11/02/16 15:56 108 H 20 132/77 99 11/02/16 15:36 109 H 96 11/02/16 15:15 98.0 F 108 H 19 132/77 11/02/16 15:02 107 H 25 H 126/84 94 L 11/02/16 14:45 98.0 F 106 H 18 126/81 11/02/16 14:30 112 H 32 H 96 11/02/16 14:02 113 H 22 126/81 98 11/02/16 14:00 109 H 27 H 97 11/02/16 13:45 98.0 F 104 H 18 126/81 Intake and Output (Last 8hrs): Intake & Output 11/02/16 11/02/16 11/02/16 06:59 14:59 22:59 Intake Total 670 1660 510 Output Total 0 0 Balance 670 1660 510 Intake: Intake, IV Amount 550 450 50 left AC side port 250 left antecubital 300 450 50 Oral 120 960 Blood Product 250 450 Red Blood Cells Cpd As1 0 Lr Unit [id number] Red Blood Cells Cpd As1 0 325 Lr Unit [id number] Other 10 Red Blood Cells Cpd As1 10 Lr Unit [id number] Output: Stool 0 0 Other: Voiding Method Toilet # Voids Urine, Voided 0 1 1 - Medications Active Medications: Active Medications Generic Name Dose Route Start Last Admin Trade Name Freq PRN Reason Stop Dose Admin Acetaminophen 650 mg 11/02/16 00:28 Tylenol 325mg Tab PO Q6 PRN Pain, moderate (4-7) Albuterol/Ipratropium 3 ml 11/02/16 14:00 11/02/16 13:19 Duoneb 3 Mg/0.5 Mg (3 Ml) Ud INH 3 ml RQ6 SHANNON Administration Docusate Sodium 100 mg 11/02/16 18:00 Colace PO BID SHANNON Famotidine 20 mg 11/02/16 10:00 11/02/16 09:32 Pepcid PO 20 mg DAILY SHANNON Administration Sodium Chloride 1,000 mls @ 50 mls/hr 11/02/16 02:15 11/02/16 02:50 Sodium Chloride 0.9% IV 50 mls/hr .Q20H SHANNON Administration Imipenem/Cilastatin Sodium 500 100 mls @ 100 mls/hr 11/02/16 18:00 mg/ Sodium Chloride IVPB Q6H [facility] Telavancin 750 mg/ Sodium 100 mls @ 100 mls/hr 11/02/16 19:00 Chloride IVPB Q24H [facility] Insulin Aspart 0 unit 11/02/16 07:30 11/02/16 12:48 Novolog SC 10 unit ACHS [facility] Administration Protocol Insulin Detemir 8 unit 11/02/16 22:00 Levemir SC HS [facility] Ketorolac Tromethamine 30 mg 11/02/16 10:04 11/02/16 10:36 Toradol IM 30 mg Q6 PRN Administration MODERATE PAIN (4-7) Lisinopril 20 mg 11/02/16 10:00 11/02/16 09:33 Zestril PO 20 mg DAILY [facility] Administration Morphine Sulfate 1 mg 11/02/16 12:23 11/02/16 12:42 Morphine IVP 1 mg Q6 PRN Administration Pain, severe (8-10) Ondansetron HCl 4 mg 11/02/16 08:27 Zofran Inj IVP Q6H PRN Nausea/Vomiting - Patient Studies Lab Studies: Lab Studies 11/02/16 11/02/16 11/02/16 Range/Units 16:35 12:17 11:59 WBC (4.8-10.8) K/uL RBC (4.40-5.90) Mil/uL Hgb (12.0-18.0) g/dL Hct (35.0-51.0) % MCV (80.0-94.0) fL MCH (27.0-31.0) pg MCHC (33.0-37.0) g/dL RDW (11.5-14.5) % Plt Count (130-400) K/uL MPV (7.2-11.7) fL Neut % (Auto) (50.0-75.0) % Lymph % (Auto) (20.0-40.0) % Nye % (Auto) (0.0-10.0) % Eos % (Auto) (0.0-4.0) % Baso % (Auto) (0.0-2.0) % Neut # (1.8-7.0) K/uL Lymph # (1.0-4.3) K/uL Nye # (0.0-0.8) K/uL Eos # (0.0-0.7) K/uL Baso # (0.0-0.2) K/uL Puncture Site pCO2 (35-45) mm/Hg pO2 (80-100) mm/Hg HCO3 (21-28) mmol/L ABG pH (7.35-7.45) ABG Total CO2 (22-28) mmol/L ABG O2 Saturation (95-98) % ABG Base Excess (-2.0-3.0) mmol/L ABG Hemoglobin (11.7-17.4) g/dL ABG Carboxyhemoglobin (0.5-1.5) % POC ABG HHb (Measured) (0.0-5.0) % ABG Methemoglobin (0.0-3.0) % Hayden Test A-a O2 Difference mm/Hg Respiratory Index Hgb O2 Saturation (95.0-98.0) % FiO2 % Inspiratory BiPAP Expiratory BiPAP Sodium (132-148) mmol/L Potassium (3.6-5.2) mmol/L Chloride (98-107) mmol/L Carbon Dioxide (22-30) mmol/L Anion Gap (10-20) BUN (9-20) mg/dL Creatinine (0.8-1.5) MG/DL Est GFR ( Amer) Est GFR (Non-Af Amer) POC Glucose (mg/dL) 329 H 332 H (65-110) mg/dL Random Glucose (75-110) mg/dL Calcium (8.6-10.4) mg/dl Phosphorus (2.5-4.5) mg/dL Magnesium (1.6-2.3) mg/dL Total Bilirubin (0.2-1.3) mg/dL AST (17-59) U/L ALT (21-72) U/L Alkaline Phosphatase (38-126) U/L Total Creatine Kinase 61 (55-170) U/L CK-MB (Mass) 0.63 (0.0-3.38) ng/mL Troponin I, Quant < 0.0120 (0.00-0.120) ng/mL Total Protein (6.3-8.3) g/dL Albumin (3.5-5.0) g/dL Globulin (2.2-3.9) gm/dL Albumin/Globulin Ratio (1.0-2.1) Blood Type Antibody Screen 11/02/16 11/02/16 11/02/16 Range/Units 08:49 07:44 06:18 WBC (4.8-10.8) K/uL RBC (4.40-5.90) Mil/uL Hgb (12.0-18.0) g/dL Hct (35.0-51.0) % MCV (80.0-94.0) fL MCH (27.0-31.0) pg MCHC (33.0-37.0) g/dL RDW (11.5-14.5) % Plt Count (130-400) K/uL MPV (7.2-11.7) fL Neut % (Auto) (50.0-75.0) % Lymph % (Auto) (20.0-40.0) % Nye % (Auto) (0.0-10.0) % Eos % (Auto) (0.0-4.0) % Baso % (Auto) (0.0-2.0) % Neut # (1.8-7.0) K/uL Lymph # (1.0-4.3) K/uL Nye # (0.0-0.8) K/uL Eos # (0.0-0.7) K/uL Baso # (0.0-0.2) K/uL Puncture Site pCO2 (35-45) mm/Hg pO2 (80-100) mm/Hg HCO3 (21-28) mmol/L ABG pH (7.35-7.45) ABG Total CO2 (22-28) mmol/L ABG O2 Saturation (95-98) % ABG Base Excess (-2.0-3.0) mmol/L ABG Hemoglobin (11.7-17.4) g/dL ABG Carboxyhemoglobin (0.5-1.5) % POC ABG HHb (Measured) (0.0-5.0) % ABG Methemoglobin (0.0-3.0) % Hayden Test A-a O2 Difference mm/Hg Respiratory Index Hgb O2 Saturation (95.0-98.0) % FiO2 % Inspiratory BiPAP Expiratory BiPAP Sodium 129 L (132-148) mmol/L Potassium 3.7 (3.6-5.2) mmol/L Chloride 95 L (98-107) mmol/L Carbon Dioxide 20 L (22-30) mmol/L Anion Gap 18 (10-20) BUN 12 (9-20) mg/dL Creatinine 0.5 L (0.8-1.5) MG/DL Est GFR ( Amer) > 60 Est GFR (Non-Af Amer) > 60 POC Glucose (mg/dL) 338 H (65-110) mg/dL Random Glucose 286 H (75-110) mg/dL Calcium 7.9 L (8.6-10.4) mg/dl Phosphorus 3.8 (2.5-4.5) mg/dL Magnesium 1.7 (1.6-2.3) mg/dL Total Bilirubin 0.5 (0.2-1.3) mg/dL AST 21 (17-59) U/L ALT 17 L D (21-72) U/L Alkaline Phosphatase 88 (38-126) U/L Total Creatine Kinase (55-170) U/L CK-MB (Mass) (0.0-3.38) ng/mL Troponin I, Quant (0.00-0.120) ng/mL Total Protein 7.0 (6.3-8.3) g/dL Albumin 2.9 L (3.5-5.0) g/dL Globulin 4.0 H (2.2-3.9) gm/dL Albumin/Globulin Ratio 0.7 L (1.0-2.1) Blood Type O POSITIVE Antibody Screen Negative 11/02/16 11/02/16 Range/Units 06:18 00:55 WBC 6.5 (4.8-10.8) K/uL RBC 2.86 L (4.40-5.90) Mil/uL Hgb 7.9 L (12.0-18.0) g/dL Hct 24.4 L (35.0-51.0) % MCV 85.4 (80.0-94.0) fL MCH 27.6 (27.0-31.0) pg MCHC 32.3 L (33.0-37.0) g/dL RDW 14.0 (11.5-14.5) % Plt Count 211 (130-400) K/uL MPV 9.2 (7.2-11.7) fL Neut % (Auto) 73.0 (50.0-75.0) % Lymph % (Auto) 16.2 L (20.0-40.0) % Nye % (Auto) 9.9 (0.0-10.0) % Eos % (Auto) 0.6 (0.0-4.0) % Baso % (Auto) 0.3 (0.0-2.0) % Neut # 4.7 (1.8-7.0) K/uL Lymph # 1.0 (1.0-4.3) K/uL Nye # 0.6 (0.0-0.8) K/uL Eos # 0.0 (0.0-0.7) K/uL Baso # 0.0 (0.0-0.2) K/uL Puncture Site Rr pCO2 26 L (35-45) mm/Hg pO2 442 H (80-100) mm/Hg HCO3 23.9 (21-28) mmol/L ABG pH 7.51 H (7.35-7.45) ABG Total CO2 21.5 L (22-28) mmol/L ABG O2 Saturation 99.6 H (95-98) % ABG Base Excess -1.3 (-2.0-3.0) mmol/L ABG Hemoglobin 10.7 L (11.7-17.4) g/dL ABG Carboxyhemoglobin 1.5 (0.5-1.5) % POC ABG HHb (Measured) 0.4 (0.0-5.0) % ABG Methemoglobin 0.7 (0.0-3.0) % Hayden Test Pos A-a O2 Difference 239.0 mm/Hg Respiratory Index 0.5 Hgb O2 Saturation 97.4 (95.0-98.0) % FiO2 100.0 % Inspiratory BiPAP 12 Expiratory BiPAP 6 Sodium (132-148) mmol/L Potassium (3.6-5.2) mmol/L Chloride (98-107) mmol/L Carbon Dioxide (22-30) mmol/L Anion Gap (10-20) BUN (9-20) mg/dL Creatinine (0.8-1.5) MG/DL Est GFR ( Amer) Est GFR (Non-Af Amer) POC Glucose (mg/dL) (65-110) mg/dL Random Glucose (75-110) mg/dL Calcium (8.6-10.4) mg/dl Phosphorus (2.5-4.5) mg/dL Magnesium (1.6-2.3) mg/dL Total Bilirubin (0.2-1.3) mg/dL AST (17-59) U/L ALT (21-72) U/L Alkaline Phosphatase (38-126) U/L Total Creatine Kinase (55-170) U/L CK-MB (Mass) (0.0-3.38) ng/mL Troponin I, Quant (0.00-0.120) ng/mL Total Protein (6.3-8.3) g/dL Albumin (3.5-5.0) g/dL Globulin (2.2-3.9) gm/dL Albumin/Globulin Ratio (1.0-2.1) Blood Type Antibody Screen Laboratory Results - last 24 hr 11/02/16 11/02/16 11/02/16 00:55 06:18 06:18 WBC 6.5 RBC 2.86 L Hgb 7.9 L Hct 24.4 L MCV 85.4 MCH 27.6 MCHC 32.3 L RDW 14.0 Plt Count 211 MPV 9.2 Neut % (Auto) 73.0 Lymph % (Auto) 16.2 L Nye % (Auto) 9.9 Eos % (Auto) 0.6 Baso % (Auto) 0.3 Neut # 4.7 Lymph # 1.0 Nye # 0.6 Eos # 0.0 Baso # 0.0 Puncture Site Rr pCO2 26 L pO2 442 H HCO3 23.9 ABG pH 7.51 H ABG Total CO2 21.5 L ABG O2 Saturation 99.6 H ABG Base Excess -1.3 ABG Hemoglobin 10.7 L ABG Carboxyhemoglobin 1.5 POC ABG HHb (Measured) 0.4 ABG Methemoglobin 0.7 Hayden Test Pos A-a O2 Difference 239.0 Respiratory Index 0.5 Hgb O2 Saturation 97.4 FiO2 100.0 Inspiratory BiPAP 12 Expiratory BiPAP 6 Sodium 129 L Potassium 3.7 Chloride 95 L Carbon Dioxide 20 L Anion Gap 18 BUN 12 Creatinine 0.5 L Est GFR ( Amer) > 60 Est GFR (Non-Af Amer) > 60 POC Glucose (mg/dL) Random Glucose 286 H Calcium 7.9 L Phosphorus 3.8 Magnesium 1.7 Total Bilirubin 0.5 AST 21 ALT 17 L D Alkaline Phosphatase 88 Total Creatine Kinase CK-MB (Mass) Troponin I, Quant Total Protein 7.0 Albumin 2.9 L Globulin 4.0 H Albumin/Globulin Ratio 0.7 L Blood Type Antibody Screen 11/02/16 11/02/16 11/02/16 07:44 08:49 11:59 WBC RBC Hgb Hct MCV MCH MCHC RDW Plt Count MPV Neut % (Auto) Lymph % (Auto) Nye % (Auto) Eos % (Auto) Baso % (Auto) Neut # Lymph # Nye # Eos # Baso # Puncture Site pCO2 pO2 HCO3 ABG pH ABG Total CO2 ABG O2 Saturation ABG Base Excess ABG Hemoglobin ABG Carboxyhemoglobin POC ABG HHb (Measured) ABG Methemoglobin Hayden Test A-a O2 Difference Respiratory Index Hgb O2 Saturation FiO2 Inspiratory BiPAP Expiratory BiPAP Sodium Potassium Chloride Carbon Dioxide Anion Gap BUN Creatinine Est GFR ( Amer) Est GFR (Non-Af Amer) POC Glucose (mg/dL) 338 H Random Glucose Calcium Phosphorus Magnesium Total Bilirubin AST ALT Alkaline Phosphatase Total Creatine Kinase 61 CK-MB (Mass) 0.63 Troponin I, Quant < 0.0120 Total Protein Albumin Globulin Albumin/Globulin Ratio Blood Type O POSITIVE Antibody Screen Negative 11/02/16 11/02/16 12:17 16:35 WBC RBC Hgb Hct MCV MCH MCHC RDW Plt Count MPV Neut % (Auto) Lymph % (Auto) Nye % (Auto) Eos % (Auto) Baso % (Auto) Neut # Lymph # Nye # Eos # Baso # Puncture Site pCO2 pO2 HCO3 ABG pH ABG Total CO2 ABG O2 Saturation ABG Base Excess ABG Hemoglobin ABG Carboxyhemoglobin POC ABG HHb (Measured) ABG Methemoglobin Hayden Test A-a O2 Difference Respiratory Index Hgb O2 Saturation FiO2 Inspiratory BiPAP Expiratory BiPAP Sodium Potassium Chloride Carbon Dioxide Anion Gap BUN Creatinine Est GFR ( Amer) Est GFR (Non-Af Amer) POC Glucose (mg/dL) 332 H 329 H Random Glucose Calcium Phosphorus Magnesium Total Bilirubin AST ALT Alkaline Phosphatase Total Creatine Kinase CK-MB (Mass) Troponin I, Quant Total Protein Albumin Globulin Albumin/Globulin Ratio Blood Type Antibody Screen EKG/Cardiology Studies: Cardiology / EKG Studies 11/02/16 11:27 ELECTROCARDIOGRAM Stat Comment: Mode Of Transportation: Reason For Exam: chest pain Critical Care Progress Note - Nutrition Nutrition: Nutrition Category Date Time Status Consistent Carbohydrate [DIET] Diets 11/02/16 Breakfast Active NPO Diet [DIET] Diets 11/03/16 Breakfast Active Attending/Attestation - Attestation I have personally seen and examined this patient.: Yes I have fully participated in the care of the patient.: Yes I have reviewed all pertinent clinical information: Yes Notes (Text): 11/02/16 17:37 Patient seen and examined 40-year-old male admitted with shortness of breath and moderate to large pleural effusion. Initially placed on BiPAP but breathing much improved now Started on antibiotics and patient is scheduled for VATS tomorrow.
--- NOTE | 2016-11-02 11:47 | CP.PCM.CON ---
History of Present Illness - History of Present Illness History of Present Illness: Reason for consultation: Right pleural effusion, sob, s/p pneumonia. Requested by Dr. Andino. Patient s/e, progress notes and imaging studies reviewed. 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 CT(angio): High density right pleural effusion and compressive atelectasis of right lower lobe. I plan to do VATS evacuation of effusion and decortication, and possible conversion it indicated. Risks(air leak, bleeding, infection), benefits, alternative, including possiblilty of discussed with the pt who accepted surgery without reservatio. Labs: Low hct, high INR, and low Na+(need to be corrected). Cardiology clearance. d/w Jo Ann Andino and Tushar. Past Patient History - Infectious Disease Hx of Infectious Diseases: None - Past Medical History & Family History Past Medical History?: Yes - Past Social History Smoking Status: Never Smoked - CARDIAC Hx Hypertension: Yes - PULMONARY Hx Asthma: Yes Hx Pneumonia: Yes - NEUROLOGICAL Hx Neurological Disorder: No - HEENT Other/Comment: uses bifocal eye glasses - RENAL Hx Chronic Kidney Disease: No - ENDOCRINE/METABOLIC Hx Diabetes Mellitus Type 2: Yes - HEMATOLOGICAL/ONCOLOGICAL Hx Blood Disorders: No - INTEGUMENTARY Hx Dermatological Problems: No - MUSCULOSKELETAL/RHEUMATOLOGICAL Hx Falls: No - GASTROINTESTINAL Hx Gastrointestinal Disorders: No - GENITOURINARY/GYNECOLOGICAL Hx Genitourinary Disorders: No - PSYCHIATRIC Hx Substance Use: No - SURGICAL HISTORY Other/Comment: I /d right big toe - ANESTHESIA Hx Anesthesia: Yes Hx Anesthesia Reactions: No Hx Malignant Hyperthermia: No Meds Allergies/Adverse Reactions: Allergies Allergy/AdvReac Type Severity Reaction Status Date / Time No Known Allergies Allergy Verified 11/01/16 21:15 - Medications Medications: Current Medications Acetaminophen (Tylenol 325mg Tab) 650 mg PO Q6 PRN PRN Reason: Pain, moderate (4-7) Albuterol/Ipratropium (Duoneb 3 Mg/0.5 Mg (3 Ml) Ud) 3 ml INH RQ6 [facility] Famotidine (Pepcid) 20 mg PO DAILY [facility] Last Admin: 11/02/16 09:32 Dose: 20 mg Heparin Sodium (Porcine) (Heparin) 5,000 units SC Q12 [facility] Imipenem/Cilastatin Sodium 500 (mg/ Sodium Chloride) 100 mls @ 100 mls/hr IVPB Q8H [facility] Last Admin: 11/02/16 09:32 Dose: 100 mls/hr Sodium Chloride (Sodium Chloride 0.9%) 1,000 mls @ 50 mls/hr IV .Q20H [facility] Last Admin: 11/02/16 02:50 Dose: 50 mls/hr Vancomycin HCl 1,500 mg/ (Sodium Chloride) 250 mls @ 166.6 mls/hr IVPB Q12H [facility] Last Admin: 11/02/16 03:41 Dose: 166.6 mls/hr Insulin Aspart (Novolog) 0 unit SC ACHS [facility] PRN Reason: Protocol Last Admin: 11/02/16 07:57 Dose: 10 unit Insulin Detemir (Levemir) 8 unit SC HS [facility] Ketorolac Tromethamine (Toradol) 30 mg IM Q6 PRN PRN Reason: MODERATE PAIN (4-7) Last Admin: 11/02/16 10:36 Dose: 30 mg Lisinopril (Zestril) 20 mg PO DAILY [facility] Last Admin: 11/02/16 09:33 Dose: 20 mg Ondansetron HCl (Zofran Inj) 4 mg IVP Q6H PRN PRN Reason: Nausea/Vomiting Results - Vital Signs Recent Vital Signs: Last Vital Signs Temp 99.6 F 11/02/16 04:00 Pulse 110 H 11/02/16 07:00 Resp 15 11/02/16 07:00 BP 148/94 H 11/02/16 07:02 Pulse Ox 99 11/02/16 07:00 - Labs Result Diagrams: 11/02/16 06:18 11/02/16 06:18 Labs: Laboratory Results - last 24 hr 11/02/16 11/02/16 11/02/16 00:55 06:18 06:18 WBC 6.5 RBC 2.86 L Hgb 7.9 L Hct 24.4 L MCV 85.4 MCH 27.6 MCHC 32.3 L RDW 14.0 Plt Count 211 MPV 9.2 Neut % (Auto) 73.0 Lymph % (Auto) 16.2 L [place] % (Auto) 9.9 Eos % (Auto) 0.6 Baso % (Auto) 0.3 Neut # 4.7 Lymph # 1.0 [place] # 0.6 Eos # 0.0 Baso # 0.0 Puncture Site Rr pCO2 26 L pO2 442 H HCO3 23.9 ABG pH 7.51 H ABG Total CO2 21.5 L ABG O2 Saturation 99.6 H ABG Base Excess -1.3 ABG Hemoglobin 10.7 L ABG Carboxyhemoglobin 1.5 POC ABG HHb (Measured) 0.4 ABG Methemoglobin 0.7 Hayden Test Pos A-a O2 Difference 239.0 Respiratory Index 0.5 Hgb O2 Saturation 97.4 FiO2 100.0 Inspiratory BiPAP 12 Expiratory BiPAP 6 Sodium 129 L Potassium 3.7 Chloride 95 L Carbon Dioxide 20 L Anion Gap 18 BUN 12 Creatinine 0.5 L Est GFR ( Amer) > 60 Est GFR (Non-Af Amer) > 60 POC Glucose (mg/dL) Random Glucose 286 H Calcium 7.9 L Phosphorus 3.8 Magnesium 1.7 Total Bilirubin 0.5 AST 21 ALT 17 L D Alkaline Phosphatase 88 Total Protein 7.0 Albumin 2.9 L Globulin 4.0 H Albumin/Globulin Ratio 0.7 L Blood Type Antibody Screen 11/02/16 11/02/16 07:44 08:49 WBC RBC Hgb Hct MCV MCH MCHC RDW Plt Count MPV Neut % (Auto) Lymph % (Auto) [place] % (Auto) Eos % (Auto) Baso % (Auto) Neut # Lymph # [place] # Eos # Baso # Puncture Site pCO2 pO2 HCO3 ABG pH ABG Total CO2 ABG O2 Saturation ABG Base Excess ABG Hemoglobin ABG Carboxyhemoglobin POC ABG HHb (Measured) ABG Methemoglobin Hayden Test A-a O2 Difference Respiratory Index Hgb O2 Saturation FiO2 Inspiratory BiPAP Expiratory BiPAP Sodium Potassium Chloride Carbon Dioxide Anion Gap BUN Creatinine Est GFR ( Amer) Est GFR (Non-Af Amer) POC Glucose (mg/dL) 338 H Random Glucose Calcium Phosphorus Magnesium Total Bilirubin AST ALT Alkaline Phosphatase Total Protein Albumin Globulin Albumin/Globulin Ratio Blood Type O POSITIVE Antibody Screen Negative
[2016-11-02] MEDS: Albuterol-Ipratrop 3 mg / 0.5 (3 ml) UD INH SCH ×2 (13:19→19:38)
--- NOTE | 2016-11-02 17:50 | CP.PCM.CON ---
History of Present Illness - History of Present Illness History of Present Illness: INFECTIOUS DISEASE ICU/CCU CONSULTATION MARIA DIAZ MD, FACP ICU #[id number] 11/02/2016 CHART REVIEWED PT EXAMINED CASE DISCUSSED WITH DRS. JAMES, TIMOTHY, AND ELISSA, ALSO WITH [employer] OPERATOR QUINN. 40 YEAR OLD WHITE MALE REFERRED DIRECTLY FOR RESPIRATORY DYSFUNCTION AND PROGRESSIVE RIGHT SIDED RIGHT PLEURITIC CHEST PAIN, INCAPCITATING AT TIMES. IN THE ER HE REQUIRED BIPAP, FLUIDS AND CT SCANNING SECONDARY TO HIS SEVERE ILLNESS. SIGNIFICANT HISTORY OF PRESENT ILLNESS: RECENTLY DX WITH INFLUENZA AT THE END OF SEPTEMBER SUBSEQUENTLY DEVELOPED PNEUMONIA REQUIRING ADMISSION AT FROM OCTOBER 13-2016 DM 2 DX END OF DECEMBER 2015 HTN ALSO LAST YEAR LOST 60 LBS OVER 4 YEARS WITH DIET ALONE(?). S/P ARTHROSCOPY DENIES ALLERGIES TO MEDS DENIES ANY TOBACCO/ETOH NO SIGNIFICANT FAMILY HX NO RECENT TRAVEL OUTSIDE THE [facility] OVER THE PAST 6 MONTHS NO ONE ELSE IS ILL AT HOME, AND 2 YR OLD CHILD. ROS: SIGNIFICANT RIGHT SIDED PLEURITIC CHEST PAIN NO FEVERS NO N,V,D,C, RASH, NO CHANGE I HIS DIET, NO BLEEDING APPRECIATED OR REMARKED UPON. HAS LOST 3 ORE POUNDS IN THE PAST FEW WEEKS. R/O ABSCESS/EMPYEMA VS UNDERLYING MAILGNANCY Review of Systems - Review of Systems Systems not reviewed;Unavailable: Respiratory Distress - Constitutional Constitutional: Excessive Sweating, Fatigue, Malaise, Night Sweats, Weight Loss - EENT Eyes: absent: As Per HPI, Blind Spots, Blurred Vision, Change in Vision, Decreased Night Vision, Diplopia, Discharge, Dry Eye, Exophthalmos, Floaters, Irritation, Itchy Eyes, Loss of Peripheral Vision, Pain, Photophobia, Requires Corrective Lenses, Sees Flashes, Spots in Vision, Tunnel Vision, Other Visual Disturbances, Loss of Vision, Other Ears: absent: As Per HPI, Decreased Hearing, Ear Discharge, Ear Pain, Tinnitus, Abnormal Hearing, Disequilibrium, Dizziness, Other Nose/Mouth/Throat: Dry Mouth. absent: Nasal Obstruction, Nasal Trauma, Post Nasal Drip, Bleeding Gums, Change in Voice, Mouth Lesions - Cardiovascular Cardiovascular: Chest Pain with Activity, Diaphoresis, Dyspnea, Dyspnea on Exertion. absent: Pain Radiating to Arm/Neck/Jaw, Leg Edema, Pedal Edema, Radiating Pain, Rapid Heart Rate - Respiratory Respiratory: Cough, Dyspnea, Dyspnea on Exertion, Pain on Inspiration. absent: Hemoptysis Additional comments: COUGH DRY OVER WEEKS! - Gastrointestinal Gastrointestinal: absent: Abdominal Pain, Diarrhea, Hematochezia, Loose Stools, Vomiting - Genitourinary Genitourinary: absent: Change in Urinary Stream, Hematuria, Urinary Hesitance, Freq UTI - Musculoskeletal Musculoskeletal: Muscle Weakness, Myalgias, Stiffness - Integumentary Integumentary: Acne. absent: Bleeding Lesions, New Lesions, Skin Ulcer, Sores, Unusual Bruising, Wounds, Jaundice Additional comments: ACNE ON ANTERIOR CHEST - Neurological Neurological: absent: Confusion, Convulsions, Numbness, Focal Weakness, Frequent Falls - Psychiatric Psychiatric: absent: Auditory Hallucinations, Confusion, Depression, Hallucinations, Panic Attacks, Suicidal Ideation - Endocrine Endocrine: Excessive Sweating Past Patient History - Infectious Disease Hx of Infectious Diseases: None - Tetanus Immunizations Tetanus Immunization: Unknown - Past Medical History & Family History Past Medical History?: Yes - Past Social History Smoking Status: Never Smoked Chewing Tobacco Use: Yes Cigar Use: Yes Alcohol: None Drugs: Denies Home Situation {Lives}: With Family - CARDIAC Hx Cardiac Disorders: Yes Hx Hypertension: Yes - PULMONARY Hx Respiratory Disorders: Yes Hx Asthma: Yes Hx Pneumonia: Yes - NEUROLOGICAL Hx Neurological Disorder: No - HEENT Other/Comment: uses bifocal eye glasses - RENAL Hx Chronic Kidney Disease: No - ENDOCRINE/METABOLIC Hx Endocrine Disorders: Yes Hx Diabetes Mellitus Type 2: Yes - HEMATOLOGICAL/ONCOLOGICAL Hx Blood Disorders: No - INTEGUMENTARY Hx Dermatological Problems: No - MUSCULOSKELETAL/RHEUMATOLOGICAL Hx Falls: No - GASTROINTESTINAL Hx Gastrointestinal Disorders: No - GENITOURINARY/GYNECOLOGICAL Hx Genitourinary Disorders: No - PSYCHIATRIC Hx Substance Use: No - SURGICAL HISTORY Hx Surgeries: No Other/Comment: I /d right big toe - ANESTHESIA Hx Anesthesia: Yes Hx Anesthesia Reactions: No Hx Malignant Hyperthermia: No Meds Allergies/Adverse Reactions: Allergies Allergy/AdvReac Type Severity Reaction Status Date / Time No Known Allergies Allergy Verified 11/01/16 21:15 - Medications Medications: Current Medications Acetaminophen (Tylenol 325mg Tab) 650 mg PO Q6 PRN PRN Reason: Pain, moderate (4-7) Albuterol/Ipratropium (Duoneb 3 Mg/0.5 Mg (3 Ml) Ud) 3 ml INH RQ6 [facility] Last Admin: 11/02/16 13:19 Dose: 3 ml Docusate Sodium (Colace) 100 mg PO BID [facility] Famotidine (Pepcid) 20 mg PO DAILY [facility] Last Admin: 11/02/16 09:32 Dose: 20 mg Sodium Chloride (Sodium Chloride 0.9%) 1,000 mls @ 50 mls/hr IV .Q20H [facility] Last Admin: 11/02/16 02:50 Dose: 50 mls/hr Imipenem/Cilastatin Sodium 500 (mg/ Sodium Chloride) 100 mls @ 100 mls/hr IVPB Q6H [facility] Telavancin 750 mg/ Sodium (Chloride) 100 mls @ 100 mls/hr IVPB Q24H [facility] Insulin Aspart (Novolog) 0 unit SC ACHS [facility] PRN Reason: Protocol Last Admin: 11/02/16 12:48 Dose: 10 unit Insulin Detemir (Levemir) 8 unit SC HS [facility] Ketorolac Tromethamine (Toradol) 30 mg IM Q6 PRN PRN Reason: MODERATE PAIN (4-7) Last Admin: 11/02/16 10:36 Dose: 30 mg Lisinopril (Zestril) 20 mg PO DAILY [facility] Last Admin: 11/02/16 09:33 Dose: 20 mg Morphine Sulfate (Morphine) 1 mg IVP Q6 PRN PRN Reason: Pain, severe (8-10) Last Admin: 11/02/16 12:42 Dose: 1 mg Ondansetron HCl (Zofran Inj) 4 mg IVP Q6H PRN PRN Reason: Nausea/Vomiting Physical Exam - Constitutional Appears: Non-toxic, In Acute Distress - Head Exam Head Exam: ATRAUMATIC - Eye Exam Eye Exam: Normal appearance - ENT Exam ENT Exam: Mucous Membranes Moist - Neck Exam Neck exam: Positive for: Normal Inspection - Respiratory Exam Respiratory Exam: Chest Wall Tenderness, Decreased Breath Sounds Additional comments: MARKED RIGHT SIDED DECREASE IN BREATH SOUNDS - Cardiovascular Exam Cardiovascular Exam: Tachycardia - GI/Abdominal Exam GI & Abdominal Exam: Normal Bowel Sounds, Soft. absent: Distended, Tenderness - Rectal Exam Rectal Exam: Deferred - Extremities Exam Extremities exam: Positive for: normal inspection - Back Exam Back exam: NORMAL INSPECTION - Neurological Exam Neurological exam: Alert, Oriented x3 - Psychiatric Exam Psychiatric exam: Normal Affect, Normal Mood - Skin Skin Exam: Normal Color, Warm Results - Vital Signs Recent Vital Signs: Last Vital Signs Temp 98.3 F 11/02/16 16:30 Pulse 113 H 11/02/16 16:30 Resp 24 11/02/16 16:30 BP 151/98 H 11/02/16 16:30 Pulse Ox 95 11/02/16 16:30 - Labs Result Diagrams: 11/07/16 06:32 11/07/16 06:33 Labs: Laboratory Results - last 24 hr 11/02/16 11/02/16 11/02/16 00:55 06:18 06:18 WBC 6.5 RBC 2.86 L Hgb 7.9 L Hct 24.4 L MCV 85.4 MCH 27.6 MCHC 32.3 L RDW 14.0 Plt Count 211 MPV 9.2 Neut % (Auto) 73.0 Lymph % (Auto) 16.2 L [place] % (Auto) 9.9 Eos % (Auto) 0.6 Baso % (Auto) 0.3 Neut # 4.7 Lymph # 1.0 [place] # 0.6 Eos # 0.0 Baso # 0.0 Puncture Site Rr pCO2 26 L pO2 442 H HCO3 23.9 ABG pH 7.51 H ABG Total CO2 21.5 L ABG O2 Saturation 99.6 H ABG Base Excess -1.3 ABG Hemoglobin 10.7 L ABG Carboxyhemoglobin 1.5 POC ABG HHb (Measured) 0.4 ABG Methemoglobin 0.7 Hayden Test Pos A-a O2 Difference 239.0 Respiratory Index 0.5 Hgb O2 Saturation 97.4 FiO2 100.0 Inspiratory BiPAP 12 Expiratory BiPAP 6 Sodium 129 L Potassium 3.7 Chloride 95 L Carbon Dioxide 20 L Anion Gap 18 BUN 12 Creatinine 0.5 L Est GFR ( Amer) > 60 Est GFR (Non-Af Amer) > 60 POC Glucose (mg/dL) Random Glucose 286 H Calcium 7.9 L Phosphorus 3.8 Magnesium 1.7 Total Bilirubin 0.5 AST 21 ALT 17 L D Alkaline Phosphatase 88 Total Creatine Kinase CK-MB (Mass) Troponin I, Quant Total Protein 7.0 Albumin 2.9 L Globulin 4.0 H Albumin/Globulin Ratio 0.7 L Blood Type Antibody Screen 11/02/16 11/02/16 11/02/16 07:44 08:49 11:59 WBC RBC Hgb Hct MCV MCH MCHC RDW Plt Count MPV Neut % (Auto) Lymph % (Auto) [place] % (Auto) Eos % (Auto) Baso % (Auto) Neut # Lymph # [place] # Eos # Baso # Puncture Site pCO2 pO2 HCO3 ABG pH ABG Total CO2 ABG O2 Saturation ABG Base Excess ABG Hemoglobin ABG Carboxyhemoglobin POC ABG HHb (Measured) ABG Methemoglobin Hayden Test A-a O2 Difference Respiratory Index Hgb O2 Saturation FiO2 Inspiratory BiPAP Expiratory BiPAP Sodium Potassium Chloride Carbon Dioxide Anion Gap BUN Creatinine Est GFR ( Amer) Est GFR (Non-Af Amer) POC Glucose (mg/dL) 338 H Random Glucose Calcium Phosphorus Magnesium Total Bilirubin AST ALT Alkaline Phosphatase Total Creatine Kinase 61 CK-MB (Mass) 0.63 Troponin I, Quant < 0.0120 Total Protein Albumin Globulin Albumin/Globulin Ratio Blood Type O POSITIVE Antibody Screen Negative 11/02/16 11/02/16 12:17 16:35 WBC RBC Hgb Hct MCV MCH MCHC RDW Plt Count MPV Neut % (Auto) Lymph % (Auto) [place] % (Auto) Eos % (Auto) Baso % (Auto) Neut # Lymph # [place] # Eos # Baso # Puncture Site pCO2 pO2 HCO3 ABG pH ABG Total CO2 ABG O2 Saturation ABG Base Excess ABG Hemoglobin ABG Carboxyhemoglobin POC ABG HHb (Measured) ABG Methemoglobin Hayden Test A-a O2 Difference Respiratory Index Hgb O2 Saturation FiO2 Inspiratory BiPAP Expiratory BiPAP Sodium Potassium Chloride Carbon Dioxide Anion Gap BUN Creatinine Est GFR ( Amer) Est GFR (Non-Af Amer) POC Glucose (mg/dL) 332 H 329 H Random Glucose Calcium Phosphorus Magnesium Total Bilirubin AST ALT Alkaline Phosphatase Total Creatine Kinase CK-MB (Mass) Troponin I, Quant Total Protein Albumin Globulin Albumin/Globulin Ratio Blood Type Antibody Screen Assessment & Plan - Assessment and Plan (Free Text) Assessment: SEVERE RIGHT SIDED PLEURAL EFFUSION R/O LOCULATED EFFUSION VS ABSCESS-EMPYEMA. SOURCE TO BE ELUCIDATED START VIBATIV(TELEVANCIN) AND PRIMAXIN NEW ANEMIA R/O BLEED VS ACUTE ANEMIA OF CHRONIC DISEASE DM2 HTN
[2016-11-02] MEDS: Telavancin Hydrochloride 750 MG in Sodium Chloride 0.9% 100 ML IVPB SCH (18:54)
[2016-11-02] MEDS ORDERED: Insulin Detemir 100 units/ml Vial (Levemir) SC SCH (22:00)
[2016-11-02 22:49] LABS: HEMATOCRIT 26.6 % (35.0-51.0); MEAN CELL VOLUME 84.9 fL (80.0-94.0); MEAN CORPUSCULAR HEMOGLOBIN 27.9 pg (27.0-31.0); MEAN CORPUSCULAR HGB CONC 32.9 g/dL (33.0-37.0); RED CELL DISTRIBUTION WIDTH 14.2 % (11.5-14.5); WHITE BLOOD COUNT 5.4 K/uL (4.8-10.8)
[2016-11-03] MEDS: Albuterol-Ipratrop 3 mg / 0.5 (3 ml) UD INH SCH ×2 (01:37→07:59)
--- NOTE | 2016-11-03 06:32 | CP.PCM.PN ---
<Florencio Wade - Last Filed: 11/03/16 12:57> Subjective - Date & Time of Evaluation Date of Evaluation: 11/03/16 Time of Evaluation: 06:29 - Subjective Subjective: Cardiology Progress Note Dr. Lin Patient seen and examined at the bedside. No acute distress. No acute events overnight. Patient is for OR today for VATs procedure with Dr. Villagomez. The patient is NPO. The patient has continued complaint of shortness of breath and minimal chest pain with inspiration. The patient denies all other complaints this morning. 12 point review of systems was completed and negative except for the above, stated complaints. Objective - Vital Signs/Intake and Output Vital Signs (last 24 hours): Temp Pulse Resp BP Pulse Ox 97.9 F 98 H 20 148/90 100 11/03/16 04:00 11/03/16 04:30 11/03/16 04:30 11/03/16 03:50 11/03/16 04:30 Intake and Output: 11/02/16 11/03/16 18:59 06:59 Intake Total 2170 725 Output Total 0 Balance 2170 725 - Medications Medications: Current Medications Acetaminophen (Tylenol 325mg Tab) 650 mg PO Q6 PRN PRN Reason: Pain, moderate (4-7) Albuterol/Ipratropium (Duoneb 3 Mg/0.5 Mg (3 Ml) Ud) 3 ml INH RQ6 [facility] Last Admin: 11/03/16 01:37 Dose: 3 ml Docusate Sodium (Colace) 100 mg PO BID [facility] Last Admin: 11/02/16 17:36 Dose: 100 mg Famotidine (Pepcid) 20 mg PO DAILY [facility] Last Admin: 11/02/16 09:32 Dose: 20 mg Sodium Chloride (Sodium Chloride 0.9%) 1,000 mls @ 50 mls/hr IV .Q20H [facility] Last Admin: 11/02/16 02:50 Dose: 50 mls/hr Imipenem/Cilastatin Sodium 500 (mg/ Sodium Chloride) 100 mls @ 100 mls/hr IVPB Q6H [facility] Last Admin: 11/03/16 00:40 Dose: 100 mls/hr Telavancin 750 mg/ Sodium (Chloride) 100 mls @ 100 mls/hr IVPB Q24H [facility] Last Admin: 11/02/16 18:54 Dose: 100 mls/hr Insulin Aspart (Novolog) 0 unit SC ACHS [facility] PRN Reason: Protocol Last Admin: 11/02/16 21:53 Dose: 3 unit Insulin Detemir (Levemir) 8 unit SC HS [facility] Last Admin: 11/02/16 21:44 Dose: Not Given Ketorolac Tromethamine (Toradol) 30 mg IM Q6 PRN PRN Reason: MODERATE PAIN (4-7) Last Admin: 11/02/16 21:54 Dose: 30 mg Lisinopril (Zestril) 20 mg PO DAILY [facility] Last Admin: 11/02/16 09:33 Dose: 20 mg Morphine Sulfate (Morphine) 1 mg IVP Q6 PRN PRN Reason: Pain, severe (8-10) Last Admin: 11/02/16 12:42 Dose: 1 mg Ondansetron HCl (Zofran Inj) 4 mg IVP Q6H PRN PRN Reason: Nausea/Vomiting - Labs Labs: 11/02/16 22:47 11/02/16 06:18 PT 15.6 SECONDS (9.7-12.2) H 11/01/16 21:38 INR 1.4 11/01/16 21:38 APTT 29 SECONDS (21-34) 11/01/16 21:38 - Additional Findings Additional findings: - Constitutional Appears: Well, No Acute Distress - Head Exam Head Exam: ATRAUMATIC, NORMAL INSPECTION, NORMOCEPHALIC - Eye Exam Eye Exam: EOMI, Normal appearance Pupil Exam: NORMAL ACCOMODATION - ENT Exam ENT Exam: Mucous Membranes Moist, Normal Exam - Neck Exam Neck exam: Positive for: Full Rom, Normal Inspection. Negative for: Tenderness - Respiratory Exam Respiratory Exam: Decreased Breath Sounds (right lung mid and base), NORMAL BREATHING PATTERN. absent: Accessory Muscle Use, Clear to Auscultation Bilateral, Rales, Rhonchi, Wheezes, Respiratory Distress - Cardiovascular Exam Cardiovascular Exam: Tachycardia, REGULAR RHYTHM, +S1, +S2. absent: Diastolic murmur, RRR, Systolic Murmur - GI/Abdominal Exam GI & Abdominal Exam: Normal Bowel Sounds, Soft. absent: Distended, Firm, Guarding, Tenderness - Extremities Exam Extremities exam: Positive for: normal capillary refill, normal inspection, pedal pulses present - Back Exam Back exam: NORMAL INSPECTION. absent: CVA tenderness (L), CVA tenderness (R) - Neurological Exam Neurological exam: Alert, CN II-XII Intact, Oriented x3 - Skin Skin Exam: Dry, Intact, Normal Color, Warm Assessment and Plan (3) Pre-procedural cardiovascular examination Assessment & Plan: Patient NPO for OR today, benefits of VATS procedure outweigh the risks. Patient is low risk for surgery from a cardiac standpoint. patient s/p transfusion 1u pRBCs 11/02/16 EKG- sinus tachycardia, right axis deviation, normal KS interval, normal QRS duration, prolonged QTc, nonspecific ST/T wave abnormality 11/03/15 Echo- preliminary EF 53%- official read pending Cardiac Risk Assessment- (Low Risk for VATS) - Detsky Score 10: Class I - Low Risk - Jenkins Score 3: Class I - Low Risk - Tunde Score 2- Moderate Risk Benefits of VATs procedure outweigh the risks Continue with preoperative SCIP protcols and measures Troponin negative x 2 (<0.0120 x 2) CK-MB negative x 2 (1.00 > 0.63) BNP 102 (normal) Case Discussed with Dr. Delia Wade PGY1 Status: Acute <Saravanan Lin - Last Filed: 12/16/16 10:56> Objective - Vital Signs/Intake and Output Vital Signs (last 24 hours): Temp Pulse Resp BP Pulse Ox 97.7 F 82 18 120/83 95 11/30/16 08:06 11/30/16 08:06 11/30/16 08:06 11/30/16 08:06 11/30/16 08:06 - Labs Labs: 11/29/16 07:08 11/29/16 07:08 PT 14.4 SECONDS (9.7-12.2) H 11/29/16 07:08 INR 1.3 11/29/16 07:08 APTT 35 SECONDS (21-34) H 11/29/16 07:08 Assessment and Plan (1) HTN (hypertension) Status: Chronic (2) Tachycardia Status: Resolved Attending/Attestation - Attestation I have personally seen and examined this patient.: Yes I have fully participated in the care of the patient.: Yes I have reviewed all pertinent clinical information, including history, physical exam and plan: Yes Notes (Text): 12/16/16 10:56 low risk for VATS troponin negative pt in good spirits
[2016-11-03 06:42] LABS: BASO % 0.7 % (0.0-2.0); EOS % 0.9 % (0.0-4.0); HEMATOCRIT 28.8 % (35.0-51.0); LYMPH # 0.8 K/uL (1.0-4.3); LYMPH % 16.7 % (20.0-40.0); MEAN CELL VOLUME 85.3 fL (80.0-94.0); MEAN CORPUSCULAR HEMOGLOBIN 27.9 pg (27.0-31.0); MEAN CORPUSCULAR HGB CONC 32.6 g/dL (33.0-37.0); MONO # 0.5 K/uL (0.0-0.8); MONO % 9.1 % (0.0-10.0); NRBC % 0.1 % (0.0-2.0); RED CELL DISTRIBUTION WIDTH 13.8 % (11.5-14.5)
[2016-11-03 07:02] LABS: CHLORIDE 98 mmol/L (98-107)
[2016-11-03 07:03] LABS: POTASSIUM 4.1 mmol/L (3.6-5.2); SODIUM 132 mmol/L (132-148)
--- NOTE | 2016-11-03 07:04 | CP.PCM.HP ---
History of Present Illness - History of Present Illness History of Present Illness: Chief complaint: Shortness of breath. History present illness: 40-year-old male with history of hypertension, diabetes, hypercholesteremia came to the emergency room with shortness of breath. Recently patient was hospitalized 10 days ago, at that time patient was treated as pneumonia. After the discharge patient continues to have a symptoms of right-sided pleuritic chest pain. And his blood sugar was very uncontrolled. Symptoms gradually got worse, and the PMD sent the patient to see a smearer. After that she was told to go to the emergency room because of the worsening lung condition. Upon coming to the emergency room. He was having severe shortness of breath, was also having some fever, chills. He was also having sweating. Tachypnea noted, he was immediately placed on BiPAP, after that he felt better. Coughing noted, but the pain pleuritic in nature on the right chest noted. Present on Admission - Present on Admission Any Indicators Present on Admission: No History of DVT/PE: No History of Uncontrolled Diabetes: No Urinary Catheter: No Decubitus Ulcer Present: No Review of Systems - Review of Systems All systems: reviewed and no additional remarkable complaints except Review of Systems: patient complaining of sweating, tachypnea, shortness of breath. Right-sided pleuritic chest pain. Cough present. Associate with chest pain. Mucus production less. No fever, but chills and weakness and tiredness and easy fatigability. Tumor appetite. Not eating well. pressure elevated Past Patient History - Infectious Disease Hx of Infectious Diseases: None - Tetanus Immunizations Tetanus Immunization: Unknown - Past Medical History & Family History Past Medical History?: Yes Past Family History: Reviewed and not pertinent - Past Social History Smoking Status: Never Smoked Chewing Tobacco Use: Yes Cigar Use: Yes Alcohol: None Drugs: Denies Home Situation {Lives}: With Family - CARDIAC Hx Cardiac Disorders: Yes Hx Hypertension: Yes - PULMONARY Hx Respiratory Disorders: Yes Hx Asthma: Yes Hx Pneumonia: Yes - NEUROLOGICAL Hx Neurological Disorder: No - HEENT Other/Comment: uses bifocal eye glasses - RENAL Hx Chronic Kidney Disease: No - ENDOCRINE/METABOLIC Hx Endocrine Disorders: Yes Hx Diabetes Mellitus Type 2: Yes - HEMATOLOGICAL/ONCOLOGICAL Hx Blood Disorders: No - INTEGUMENTARY Hx Dermatological Problems: No - MUSCULOSKELETAL/RHEUMATOLOGICAL Hx Falls: No - GASTROINTESTINAL Hx Gastrointestinal Disorders: No - GENITOURINARY/GYNECOLOGICAL Hx Genitourinary Disorders: No - PSYCHIATRIC Hx Substance Use: No - SURGICAL HISTORY Hx Surgeries: No Other/Comment: I /d right big toe - ANESTHESIA Hx Anesthesia: Yes Hx Anesthesia Reactions: No Hx Malignant Hyperthermia: No Meds Allergies/Adverse Reactions: Allergies Allergy/AdvReac Type Severity Reaction Status Date / Time No Known Allergies Allergy Verified 11/01/16 21:15 Physical Exam - Head Exam Head Exam: ATRAUMATIC Additional comments: On examination: HEENT PERRLA, neck supple sweating noted, using BiPAP No thyromegaly was noted and no cervical adenopathy noted a decreased air entry on the right lung CVS regular heart sound, no murmur Abdomen soft and no organomegaly Extremities no pedal edema, no leg swelling, pedal pulses are good. 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 no functional neurological deficit Results - Vital Signs Recent Vital Signs: Last Vital Signs Temp 97.9 F 11/03/16 04:00 Pulse 113 H 11/03/16 06:30 Resp 22 11/03/16 06:30 BP 161/89 H 11/03/16 05:51 Pulse Ox 98 11/03/16 06:30 - Labs Result Diagrams: 11/03/16 06:32 11/03/16 06:32 Labs: Laboratory Results - last 24 hr 11/02/16 11/02/16 11/02/16 07:44 08:49 10:30 WBC RBC Hgb Hct MCV MCH MCHC RDW Plt Count MPV Neut % (Auto) Lymph % (Auto) [place] % (Auto) Eos % (Auto) Baso % (Auto) Neut # Lymph # [place] # Eos # Baso # POC Glucose (mg/dL) 338 H Total Creatine Kinase CK-MB (Mass) Troponin I, Quant Stool Occult Blood Rheum Arthritis Panel Negative Blood Type O POSITIVE Antibody Screen Negative 11/02/16 11/02/16 11/02/16 11:59 12:17 16:35 WBC RBC Hgb Hct MCV MCH MCHC RDW Plt Count MPV Neut % (Auto) Lymph % (Auto) [place] % (Auto) Eos % (Auto) Baso % (Auto) Neut # Lymph # [place] # Eos # Baso # POC Glucose (mg/dL) 332 H 329 H Total Creatine Kinase 61 CK-MB (Mass) 0.63 Troponin I, Quant < 0.0120 Stool Occult Blood Rheum Arthritis Panel Blood Type Antibody Screen 11/02/16 11/02/16 11/02/16 21:02 21:35 22:47 WBC 5.4 RBC 3.13 L Hgb 8.8 L Hct 26.6 L MCV 84.9 MCH 27.9 MCHC 32.9 L RDW 14.2 Plt Count 210 MPV 9.0 Neut % (Auto) Lymph % (Auto) [place] % (Auto) Eos % (Auto) Baso % (Auto) Neut # Lymph # [place] # Eos # Baso # POC Glucose (mg/dL) 357 H Total Creatine Kinase CK-MB (Mass) Troponin I, Quant Stool Occult Blood Negative Rheum Arthritis Panel Blood Type Antibody Screen 11/03/16 06:32 WBC 5.0 RBC 3.37 L Hgb 9.4 L Hct 28.8 L MCV 85.3 MCH 27.9 MCHC 32.6 L RDW 13.8 Plt Count 225 MPV 9.0 Neut % (Auto) 72.6 Lymph % (Auto) 16.7 L [place] % (Auto) 9.1 Eos % (Auto) 0.9 Baso % (Auto) 0.7 Neut # 3.6 Lymph # 0.8 L [place] # 0.5 Eos # 0.0 Baso # 0.0 POC Glucose (mg/dL) Total Creatine Kinase CK-MB (Mass) Troponin I, Quant Stool Occult Blood Rheum Arthritis Panel Blood Type Antibody Screen - Imaging and Cardiology CT scan - chest Additional comment: CT chest is showing evidence of large loculated pleural effusion, with minimal pleural thickening. No pulmonary embolism. Pneumonia right lower lung Assessment & Plan (1) Empyema Assessment and Plan: parapneumonic effusion, likely empyema. Patient is also having underlying pneumonia. Started on IV antibiotic. Cardiothoracic evaluation. Possible vats, chest tube. patient understand the condition. Status: Acute (2) Pleural effusion on right Status: Acute (3) Pneumonia Assessment and Plan: ongoing pneumonia, started IV antibiotic, infection disease specialist evaluation Status: Acute (4) Anemia Assessment and Plan: anemia noted, unclear. Possibly secondary to chronic disease. Sepsis possible. Transfusion as needed. Workup for anemia may be needed. Status: Acute
[2016-11-03 07:05] LABS: ALB/GLOB RATIO 0.7 (1.0-2.1); ALKALINE PHOSPHATASE 103 U/L (38-126); AST/SGOT 20 U/L (17-59); BLOOD UREA NITROGEN 13 mg/dL (9-20); CARBON DIOXIDE 19 mmol/L (22-30); GFR AFRICAN-AMERICAN > 60; GLUCOSE,RANDOM 313 mg/dL (75-110); TOTAL PROTEIN 7.1 g/dL (6.3-8.3)
--- NOTE | 2016-11-03 07:05 | CP.PCM.PN ---
Subjective - Date & Time of Evaluation Date of Evaluation: 11/03/16 Time of Evaluation: 07:05 - Subjective Subjective: patient will be seen by hospitalist Objective - Vital Signs/Intake and Output Vital Signs (last 24 hours): Temp Pulse Resp BP Pulse Ox 97.9 F 113 H 22 161/89 H 98 11/03/16 04:00 11/03/16 06:30 11/03/16 06:30 11/03/16 05:51 11/03/16 06:30 Intake and Output: 11/03/16 11/03/16 06:59 18:59 Intake Total 825 Balance 825 - Medications Medications: Current Medications Acetaminophen (Tylenol 325mg Tab) 650 mg PO Q6 PRN PRN Reason: Pain, moderate (4-7) Albuterol/Ipratropium (Duoneb 3 Mg/0.5 Mg (3 Ml) Ud) 3 ml INH RQ6 [facility] Last Admin: 11/03/16 01:37 Dose: 3 ml Docusate Sodium (Colace) 100 mg PO BID [facility] Last Admin: 11/02/16 17:36 Dose: 100 mg Famotidine (Pepcid) 20 mg PO DAILY [facility] Last Admin: 11/02/16 09:32 Dose: 20 mg Sodium Chloride (Sodium Chloride 0.9%) 1,000 mls @ 50 mls/hr IV .Q20H [facility] Last Admin: 11/02/16 02:50 Dose: 50 mls/hr Imipenem/Cilastatin Sodium 500 (mg/ Sodium Chloride) 100 mls @ 100 mls/hr IVPB Q6H [facility] Last Admin: 11/03/16 06:43 Dose: 100 mls/hr Telavancin 750 mg/ Sodium (Chloride) 100 mls @ 100 mls/hr IVPB Q24H [facility] Last Admin: 11/02/16 18:54 Dose: 100 mls/hr Insulin Aspart (Novolog) 0 unit SC ACHS [facility] PRN Reason: Protocol Last Admin: 11/02/16 21:53 Dose: 3 unit Insulin Detemir (Levemir) 8 unit SC HS [facility] Last Admin: 11/02/16 21:44 Dose: Not Given Ketorolac Tromethamine (Toradol) 30 mg IM Q6 PRN PRN Reason: MODERATE PAIN (4-7) Last Admin: 11/02/16 21:54 Dose: 30 mg Lisinopril (Zestril) 20 mg PO DAILY [facility] Last Admin: 11/02/16 09:33 Dose: 20 mg Morphine Sulfate (Morphine) 1 mg IVP Q6 PRN PRN Reason: Pain, severe (8-10) Last Admin: 11/02/16 12:42 Dose: 1 mg Ondansetron HCl (Zofran Inj) 4 mg IVP Q6H PRN PRN Reason: Nausea/Vomiting - Labs Labs: 11/03/16 06:32 11/02/16 06:18 PT 15.6 SECONDS (9.7-12.2) H 11/01/16 21:38 INR 1.4 11/01/16 21:38 APTT 29 SECONDS (21-34) 11/01/16 21:38
[2016-11-03 07:06] LABS: ALT/SGPT 16 U/L (21-72); CALCIUM 8.2 mg/dl (8.6-10.4); MAGNESIUM 2.1 mg/dL (1.6-2.3); PHOSPHOROUS 3.8 mg/dL (2.5-4.5)
[2016-11-03] MEDS: (Novolog) Insulin Aspart, Recombinant 100 u/ml 10 ml vial SC SCH ×4 (07:31→21:10)
--- NOTE | 2016-11-03 08:13 | CARD ---
APPROVED REPORT EXAM: Two-dimensional and M-mode echocardiogram with Doppler and color Doppler. Other Information Quality : GoodRhythm : INDICATION Pericardial Effusion Dyspnea Chest Pain RISK FACTORS Hypertension M-Mode DIMENSIONS RVDd1.94 (2.1-3.2cm)Left Atrium (MM)4.41 (2.5-4.0cm) IVSd1.25 (0.7-1.1cm)Aortic Root2.73 (2.2-3.7cm) LVDd5.38 (4.0-5.6cm)Aortic Cusp Exc.1.87 (1.5-2.0cm) PWd1.18 (0.7-1.1cm)FS (%) 28 % LVDs3.89 (2.0-3.8cm)LVEF (%)53 (>50%) Mitral Valve MV E Frueswun40.9cm/sMV A Rdmfkepp46.4cm/sE/A ratio1.1 TDI E/Lateral E'0.0E/Medial E'0.0 Tricuspid Valve TR Peak [id number]/sTR Peak [id number] <Conclusion> Left ventricle: thickness: normal; size: normal; overall ejection fraction: 65%: diastolic filling pressures: normal Mitral valve: annulus: normal: leaflets: normal: excursion: normal; no significant trans-mitral gradient: mild incompetence: left atrium: normal Aortic valve: leaflets: normal: excursion: normal; no significant trans-aortic gradient: No significant incompetence: aortic root: normal Right sided Structures: Pulmonary valve: normal; no significant incompetence; Tricuspid valve: normal; no significant incompetence: Intra-cardiac hemodynamics: pulmonary systolic pressures: normal; central venous pressures: normal No pericardial effusion
[2016-11-03 08:25] LABS: INR 1.3
[2016-11-03] MEDS ORDERED: Enoxaparin 40 mg Syringe SC SCH (10:00)
[2016-11-03] MEDS ORDERED: Propofol 10 mg/ml Inj (20 ML) ONE ×2 (10:05→11:37)
[2016-11-03] MEDS ORDERED: Midazolam 2 MG/2 ML VIAL ONE ×2 (10:05→11:28)
[2016-11-03] MEDS ORDERED: Atropine Sulfate 0.4 mg/ml (0.8mg/2ml) Syringe IV ONE (10:08)
[2016-11-03] MEDS ORDERED: Phenylephrine 10 mg/ml Inj ONE (10:08)
[2016-11-03] MEDS ORDERED: Succinylcholine Chloride 20 mg/ml Syr (5 ml) IV ONE (10:08)
[2016-11-03] MEDS ORDERED: ePHEDrine 50 mg/ml Inj ONE (10:08)
[2016-11-03] MEDS ORDERED: Rocuronium 10 mg/ml (5 ml) ONE ×2 (10:08→12:18)
[2016-11-03] MEDS ORDERED: Lidocaine 1% Inj (20ml) ONE (10:52)
--- NOTE | 2016-11-03 12:29 | CP.CCUPN ---
<Martha Cottrell - Last Filed: 11/03/16 12:45> CCU Subjective - Physician Review Subjective (Free Text): Patient was seen and examined at bedside. Patient reported he slept well last night on BiPAP. Pain is well controlled on medications. Patient is to have VATS performed today at 12pm. As per Dr. East, patient started on Telavancin and Primaxin. CCU Objective - Vital Signs / Intake & Output Vital Signs (Last 4 hours): Vital Signs Pulse Resp BP Pulse Ox 11/03/16 10:50 104 H 18 137/87 93 L 11/03/16 09:51 97 H 16 134/88 92 L 11/03/16 09:00 119 H 11 L 92 L 11/03/16 08:51 120 H 19 142/82 93 L 11/03/16 08:32 121 H 18 147/72 93 L Intake and Output (Last 8hrs): Intake & Output 11/02/16 11/03/16 11/03/16 22:59 06:59 14:59 Intake Total 885 450 300 Balance 885 450 300 Weight 258 lb Intake: Intake, IV Amount 50 450 300 left antecubital 50 right forearm 450 300 Oral 0 0 Blood Product 775 Red Blood Cells Cpd As1 325 Lr Unit [id number] Red Blood Cells Cpd As1 325 Lr Unit [id number] Other 60 Red Blood Cells Cpd As1 60 Lr Unit [id number] Other: # Voids Urine, Voided 1 0 1 # Bowel Movements 0 - Physical Exam Head: Positive for: Atraumatic, Normocephalic Pupils: Positive for: PERRL Extroacular Muscles: Positive for: EOMI Conjunctiva: Positive for: Normal Mouth: Positive for: Moist Mucous Membranes Respiratory/Chest: Positive for: Decreased Breath Sounds, Other (on BIPAP). Negative for: Respiratory Distress, Accessory Muscle Use Cardiovascular: Positive for: Regular Rate and Rhythm, Normal S1, S2 Abdomen: Positive for: Normal Bowel Sounds. Negative for: Tenderness, Distention Upper Extremity: Positive for: Normal Inspection, Normal ROM, NORMAL PULSES. Negative for: Cyanosis, Edema Lower Extremity: Positive for: Normal Inspection, NORMAL PULSES. Negative for: Edema, CALF TENDERNESS Neurological: Positive for: GCS=15, CN II-XII Intact Skin: Positive for: Warm, Dry, Normal Color - Medications Active Medications: Active Medications Generic Name Dose Route Start Last Admin Trade Name Freq PRN Reason Stop Dose Admin Docusate Sodium 100 mg 11/02/16 18:00 11/03/16 10:20 Colace PO Not Given BID [facility] Famotidine 20 mg 11/02/16 10:00 11/02/16 09:32 Pepcid PO 20 mg DAILY SHANNON Administration Sodium Chloride 1,000 mls @ 50 mls/hr 11/02/16 02:15 11/02/16 02:50 Sodium Chloride 0.9% IV 50 mls/hr .Q20H [facility]ON Administration Imipenem/Cilastatin Sodium 500 100 mls @ 100 mls/hr 11/02/16 18:00 11/03/16 11:00 mg/ Sodium Chloride IVPB 100 mls/hr Q6H [facility]ON Administration Telavancin 750 mg/ Sodium 100 mls @ 100 mls/hr 11/02/16 19:00 11/02/16 18:54 Chloride IVPB 100 mls/hr Q24H [facility] Administration Insulin Aspart 0 unit 11/02/16 07:30 11/03/16 12:22 Novolog SC Not Given ACHS [facility] Protocol Insulin Detemir 20 unit 11/03/16 22:00 Levemir SC [facility] Lisinopril 20 mg 11/02/16 10:00 11/03/16 10:21 Zestril PO Not Given DAILY [facility] Metoprolol Tartrate 50 mg 11/03/16 08:45 11/03/16 08:53 Lopressor PO 50 mg Q12H [facility]ON Administration - Patient Studies Lab Studies: Microbiology Studies 11/02/16 02:31 MRSA Culture (Admit) - Final Nose MRSA NOT DETECTED Lab Studies 11/03/16 11/03/16 11/03/16 Range/Units 08:49 08:05 08:04 WBC (4.8-10.8) K/uL RBC (4.40-5.90) Mil/uL Hgb (12.0-18.0) g/dL Hct (35.0-51.0) % MCV (80.0-94.0) fL MCH (27.0-31.0) pg MCHC (33.0-37.0) g/dL RDW (11.5-14.5) % Plt Count (130-400) K/uL MPV (7.2-11.7) fL Neut % (Auto) (50.0-75.0) % Lymph % (Auto) (20.0-40.0) % Hudson % (Auto) (0.0-10.0) % Eos % (Auto) (0.0-4.0) % Baso % (Auto) (0.0-2.0) % Neut # (1.8-7.0) K/uL Lymph # (1.0-4.3) K/uL Hudson # (0.0-0.8) K/uL Eos # (0.0-0.7) K/uL Baso # (0.0-0.2) K/uL PT 15.2 H (9.7-12.2) SECONDS INR 1.3 APTT 32 (21-34) SECONDS Sodium (132-148) mmol/L Potassium (3.6-5.2) mmol/L Chloride (98-107) mmol/L Carbon Dioxide (22-30) mmol/L Anion Gap (10-20) BUN (9-20) mg/dL Creatinine (0.8-1.5) MG/DL Est GFR ( Amer) Est GFR (Non-Af Amer) POC Glucose (mg/dL) 320 H (65-110) mg/dL Random Glucose (75-110) mg/dL Calcium (8.6-10.4) mg/dl Phosphorus (2.5-4.5) mg/dL Magnesium (1.6-2.3) mg/dL Total Bilirubin (0.2-1.3) mg/dL AST (17-59) U/L ALT (21-72) U/L Alkaline Phosphatase (38-126) U/L CK-MB (Mass) (0.0-3.38) ng/mL Troponin I, Quant (0.00-0.120) ng/mL Total Protein (6.3-8.3) g/dL Albumin (3.5-5.0) g/dL Globulin (2.2-3.9) gm/dL Albumin/Globulin Ratio (1.0-2.1) Stool Occult Blood (NEGATIVE) Vancomycin Trough (5.0-10.0) ug/mL Rheum Arthritis Panel (NEGATIVE) Ur L.pneumophila Ag Negative (NEGATIVE) Blood Type Antibody Screen 11/03/16 11/03/16 11/03/16 Range/Units 06:32 06:32 06:32 WBC 5.0 (4.8-10.8) K/uL RBC 3.37 L (4.40-5.90) Mil/uL Hgb 9.4 L (12.0-18.0) g/dL Hct 28.8 L (35.0-51.0) % MCV 85.3 (80.0-94.0) fL MCH 27.9 (27.0-31.0) pg MCHC 32.6 L (33.0-37.0) g/dL RDW 13.8 (11.5-14.5) % Plt Count 225 (130-400) K/uL MPV 9.0 (7.2-11.7) fL Neut % (Auto) 72.6 (50.0-75.0) % Lymph % (Auto) 16.7 L (20.0-40.0) % Hudson % (Auto) 9.1 (0.0-10.0) % Eos % (Auto) 0.9 (0.0-4.0) % Baso % (Auto) 0.7 (0.0-2.0) % Neut # 3.6 (1.8-7.0) K/uL Lymph # 0.8 L (1.0-4.3) K/uL Hudson # 0.5 (0.0-0.8) K/uL Eos # 0.0 (0.0-0.7) K/uL Baso # 0.0 (0.0-0.2) K/uL PT (9.7-12.2) SECONDS INR APTT (21-34) SECONDS Sodium 132 (132-148) mmol/L Potassium 4.1 (3.6-5.2) mmol/L Chloride 98 (98-107) mmol/L Carbon Dioxide 19 L (22-30) mmol/L Anion Gap 19 (10-20) BUN 13 (9-20) mg/dL Creatinine 0.5 L (0.8-1.5) MG/DL Est GFR ( Amer) > 60 Est GFR (Non-Af Amer) > 60 POC Glucose (mg/dL) (65-110) mg/dL Random Glucose 313 H (75-110) mg/dL Calcium 8.2 L (8.6-10.4) mg/dl Phosphorus 3.8 (2.5-4.5) mg/dL Magnesium 2.1 (1.6-2.3) mg/dL Total Bilirubin 1.0 (0.2-1.3) mg/dL AST 20 (17-59) U/L ALT 16 L (21-72) U/L Alkaline Phosphatase 103 (38-126) U/L CK-MB (Mass) (0.0-3.38) ng/mL Troponin I, Quant (0.00-0.120) ng/mL Total Protein 7.1 (6.3-8.3) g/dL Albumin 3.0 L (3.5-5.0) g/dL Globulin 4.1 H (2.2-3.9) gm/dL Albumin/Globulin Ratio 0.7 L (1.0-2.1) Stool Occult Blood (NEGATIVE) Vancomycin Trough < 5.0 L (5.0-10.0) ug/mL Rheum Arthritis Panel (NEGATIVE) Ur L.pneumophila Ag (NEGATIVE) Blood Type Antibody Screen 11/02/16 11/02/16 11/02/16 Range/Units 22:47 21:35 21:02 WBC 5.4 (4.8-10.8) K/uL RBC 3.13 L (4.40-5.90) Mil/uL Hgb 8.8 L (12.0-18.0) g/dL Hct 26.6 L (35.0-51.0) % MCV 84.9 (80.0-94.0) fL MCH 27.9 (27.0-31.0) pg MCHC 32.9 L (33.0-37.0) g/dL RDW 14.2 (11.5-14.5) % Plt Count 210 (130-400) K/uL MPV 9.0 (7.2-11.7) fL Neut % (Auto) (50.0-75.0) % Lymph % (Auto) (20.0-40.0) % Hudson % (Auto) (0.0-10.0) % Eos % (Auto) (0.0-4.0) % Baso % (Auto) (0.0-2.0) % Neut # (1.8-7.0) K/uL Lymph # (1.0-4.3) K/uL Hudson # (0.0-0.8) K/uL Eos # (0.0-0.7) K/uL Baso # (0.0-0.2) K/uL PT (9.7-12.2) SECONDS INR APTT (21-34) SECONDS Sodium (132-148) mmol/L Potassium (3.6-5.2) mmol/L Chloride (98-107) mmol/L Carbon Dioxide (22-30) mmol/L Anion Gap (10-20) BUN (9-20) mg/dL Creatinine (0.8-1.5) MG/DL Est GFR ( Amer) Est GFR (Non-Af Amer) POC Glucose (mg/dL) 357 H (65-110) mg/dL Random Glucose (75-110) mg/dL Calcium (8.6-10.4) mg/dl Phosphorus (2.5-4.5) mg/dL Magnesium (1.6-2.3) mg/dL Total Bilirubin (0.2-1.3) mg/dL AST (17-59) U/L ALT (21-72) U/L Alkaline Phosphatase (38-126) U/L CK-MB (Mass) (0.0-3.38) ng/mL Troponin I, Quant (0.00-0.120) ng/mL Total Protein (6.3-8.3) g/dL Albumin (3.5-5.0) g/dL Globulin (2.2-3.9) gm/dL Albumin/Globulin Ratio (1.0-2.1) Stool Occult Blood Negative (NEGATIVE) Vancomycin Trough (5.0-10.0) ug/mL Rheum Arthritis Panel (NEGATIVE) Ur L.pneumophila Ag (NEGATIVE) Blood Type Antibody Screen 11/02/16 11/02/16 11/02/16 Range/Units 16:35 12:17 11:59 WBC (4.8-10.8) K/uL RBC (4.40-5.90) Mil/uL Hgb (12.0-18.0) g/dL Hct (35.0-51.0) % MCV (80.0-94.0) fL MCH (27.0-31.0) pg MCHC (33.0-37.0) g/dL RDW (11.5-14.5) % Plt Count (130-400) K/uL MPV (7.2-11.7) fL Neut % (Auto) (50.0-75.0) % Lymph % (Auto) (20.0-40.0) % Hudson % (Auto) (0.0-10.0) % Eos % (Auto) (0.0-4.0) % Baso % (Auto) (0.0-2.0) % Neut # (1.8-7.0) K/uL Lymph # (1.0-4.3) K/uL Hudson # (0.0-0.8) K/uL Eos # (0.0-0.7) K/uL Baso # (0.0-0.2) K/uL PT (9.7-12.2) SECONDS INR APTT (21-34) SECONDS Sodium (132-148) mmol/L Potassium (3.6-5.2) mmol/L Chloride (98-107) mmol/L Carbon Dioxide (22-30) mmol/L Anion Gap (10-20) BUN (9-20) mg/dL Creatinine (0.8-1.5) MG/DL Est GFR ( Amer) Est GFR (Non-Af Amer) POC Glucose (mg/dL) 329 H 332 H (65-110) mg/dL Random Glucose (75-110) mg/dL Calcium (8.6-10.4) mg/dl Phosphorus (2.5-4.5) mg/dL Magnesium (1.6-2.3) mg/dL Total Bilirubin (0.2-1.3) mg/dL AST (17-59) U/L ALT (21-72) U/L Alkaline Phosphatase (38-126) U/L CK-MB (Mass) 0.63 (0.0-3.38) ng/mL Troponin I, Quant < 0.0120 (0.00-0.120) ng/mL Total Protein (6.3-8.3) g/dL Albumin (3.5-5.0) g/dL Globulin (2.2-3.9) gm/dL Albumin/Globulin Ratio (1.0-2.1) Stool Occult Blood (NEGATIVE) Vancomycin Trough (5.0-10.0) ug/mL Rheum Arthritis Panel (NEGATIVE) Ur L.pneumophila Ag (NEGATIVE) Blood Type Antibody Screen 11/02/16 11/02/16 Range/Units 10:30 08:49 WBC (4.8-10.8) K/uL RBC (4.40-5.90) Mil/uL Hgb (12.0-18.0) g/dL Hct (35.0-51.0) % MCV (80.0-94.0) fL MCH (27.0-31.0) pg MCHC (33.0-37.0) g/dL RDW (11.5-14.5) % Plt Count (130-400) K/uL MPV (7.2-11.7) fL Neut % (Auto) (50.0-75.0) % Lymph % (Auto) (20.0-40.0) % Hudson % (Auto) (0.0-10.0) % Eos % (Auto) (0.0-4.0) % Baso % (Auto) (0.0-2.0) % Neut # (1.8-7.0) K/uL Lymph # (1.0-4.3) K/uL Hudson # (0.0-0.8) K/uL Eos # (0.0-0.7) K/uL Baso # (0.0-0.2) K/uL PT (9.7-12.2) SECONDS INR APTT (21-34) SECONDS Sodium (132-148) mmol/L Potassium (3.6-5.2) mmol/L Chloride (98-107) mmol/L Carbon Dioxide (22-30) mmol/L Anion Gap (10-20) BUN (9-20) mg/dL Creatinine (0.8-1.5) MG/DL Est GFR ( Amer) Est GFR (Non-Af Amer) POC Glucose (mg/dL) (65-110) mg/dL Random Glucose (75-110) mg/dL Calcium (8.6-10.4) mg/dl Phosphorus (2.5-4.5) mg/dL Magnesium (1.6-2.3) mg/dL Total Bilirubin (0.2-1.3) mg/dL AST (17-59) U/L ALT (21-72) U/L Alkaline Phosphatase (38-126) U/L CK-MB (Mass) (0.0-3.38) ng/mL Troponin I, Quant (0.00-0.120) ng/mL Total Protein (6.3-8.3) g/dL Albumin (3.5-5.0) g/dL Globulin (2.2-3.9) gm/dL Albumin/Globulin Ratio (1.0-2.1) Stool Occult Blood (NEGATIVE) Vancomycin Trough (5.0-10.0) ug/mL Rheum Arthritis Panel Negative (NEGATIVE) Ur L.pneumophila Ag (NEGATIVE) Blood Type O POSITIVE Antibody Screen Negative Laboratory Results - last 24 hr 11/02/16 11/02/16 11/02/16 08:49 10:30 11:59 WBC RBC Hgb Hct MCV MCH MCHC RDW Plt Count MPV Neut % (Auto) Lymph % (Auto) Hudson % (Auto) Eos % (Auto) Baso % (Auto) Neut # Lymph # Hudson # Eos # Baso # PT INR APTT Sodium Potassium Chloride Carbon Dioxide Anion Gap BUN Creatinine Est GFR ( Amer) Est GFR (Non-Af Amer) POC Glucose (mg/dL) Random Glucose Calcium Phosphorus Magnesium Total Bilirubin AST ALT Alkaline Phosphatase CK-MB (Mass) 0.63 Troponin I, Quant < 0.0120 Total Protein Albumin Globulin Albumin/Globulin Ratio Stool Occult Blood Vancomycin Trough Rheum Arthritis Panel Negative Ur L.pneumophila Ag Blood Type O POSITIVE Antibody Screen Negative 11/02/16 11/02/16 11/02/16 12:17 16:35 21:02 WBC RBC Hgb Hct MCV MCH MCHC RDW Plt Count MPV Neut % (Auto) Lymph % (Auto) Hudson % (Auto) Eos % (Auto) Baso % (Auto) Neut # Lymph # Hudson # Eos # Baso # PT INR APTT Sodium Potassium Chloride Carbon Dioxide Anion Gap BUN Creatinine Est GFR ( Amer) Est GFR (Non-Af Amer) POC Glucose (mg/dL) 332 H 329 H 357 H Random Glucose Calcium Phosphorus Magnesium Total Bilirubin AST ALT Alkaline Phosphatase CK-MB (Mass) Troponin I, Quant Total Protein Albumin Globulin Albumin/Globulin Ratio Stool Occult Blood Vancomycin Trough Rheum Arthritis Panel Ur L.pneumophila Ag Blood Type Antibody Screen 11/02/16 11/02/16 11/03/16 21:35 22:47 06:32 WBC 5.4 5.0 RBC 3.13 L 3.37 L Hgb 8.8 L 9.4 L Hct 26.6 L 28.8 L MCV 84.9 85.3 MCH 27.9 27.9 MCHC 32.9 L 32.6 L RDW 14.2 13.8 Plt Count 210 225 MPV 9.0 9.0 Neut % (Auto) 72.6 Lymph % (Auto) 16.7 L Hudson % (Auto) 9.1 Eos % (Auto) 0.9 Baso % (Auto) 0.7 Neut # 3.6 Lymph # 0.8 L Hudson # 0.5 Eos # 0.0 Baso # 0.0 PT INR APTT Sodium Potassium Chloride Carbon Dioxide Anion Gap BUN Creatinine Est GFR ( Amer) Est GFR (Non-Af Amer) POC Glucose (mg/dL) Random Glucose Calcium Phosphorus Magnesium Total Bilirubin AST ALT Alkaline Phosphatase CK-MB (Mass) Troponin I, Quant Total Protein Albumin Globulin Albumin/Globulin Ratio Stool Occult Blood Negative Vancomycin Trough Rheum Arthritis Panel Ur L.pneumophila Ag Blood Type Antibody Screen 11/03/16 11/03/16 11/03/16 06:32 06:32 08:04 WBC RBC Hgb Hct MCV MCH MCHC RDW Plt Count MPV Neut % (Auto) Lymph % (Auto) Hudson % (Auto) Eos % (Auto) Baso % (Auto) Neut # Lymph # Hudson # Eos # Baso # PT INR APTT Sodium 132 Potassium 4.1 Chloride 98 Carbon Dioxide 19 L Anion Gap 19 BUN 13 Creatinine 0.5 L Est GFR ( Amer) > 60 Est GFR (Non-Af Amer) > 60 POC Glucose (mg/dL) 320 H Random Glucose 313 H Calcium 8.2 L Phosphorus 3.8 Magnesium 2.1 Total Bilirubin 1.0 AST 20 ALT 16 L Alkaline Phosphatase 103 CK-MB (Mass) Troponin I, Quant Total Protein 7.1 Albumin 3.0 L Globulin 4.1 H Albumin/Globulin Ratio 0.7 L Stool Occult Blood Vancomycin Trough < 5.0 L Rheum Arthritis Panel Ur L.pneumophila Ag Blood Type Antibody Screen 11/03/16 11/03/16 08:05 08:49 WBC RBC Hgb Hct MCV MCH MCHC RDW Plt Count MPV Neut % (Auto) Lymph % (Auto) Hudson % (Auto) Eos % (Auto) Baso % (Auto) Neut # Lymph # Hudson # Eos # Baso # PT 15.2 H INR 1.3 APTT 32 Sodium Potassium Chloride Carbon Dioxide Anion Gap BUN Creatinine Est GFR ( Amer) Est GFR (Non-Af Amer) POC Glucose (mg/dL) Random Glucose Calcium Phosphorus Magnesium Total Bilirubin AST ALT Alkaline Phosphatase CK-MB (Mass) Troponin I, Quant Total Protein Albumin Globulin Albumin/Globulin Ratio Stool Occult Blood Vancomycin Trough Rheum Arthritis Panel Ur L.pneumophila Ag Negative Blood Type Antibody Screen Fingerstick Blood Sugar Results: 327 Critical Care Progress Note - Nutrition Nutrition: Nutrition Category Date Time Status NPO Diet [DIET] Diets 11/03/16 Breakfast Active Assessment/Plan - Assessment and Plan (Free Text) Assessment: 40M with PMHx of HTN, DM with a recent admission for pneumonia presents to the ED with SOB with a right sided pleural effusion on CT. Plan: Shortness of Breath * CTA - No CT evidence for acute pulmonary embolism. Large right pleural effusion with compressive atelectasis in the lower lobe. Superimposed pneumonia cannot be excluded. Follow-up is advised. * Placed on BiPAP: 04/13/% * Duonebs Q6H * ID consulted- Dr. East - help appreciated - Started on on Telavancin and Primaxin. * Dr. Villagomez consulted - VATS procedure today at 12pm. Anemia * Baseline hemoglobin: 11-12. This morning 7.9. Patient was transfused 2 units. Current hemoglobin is 9.4. * Stool occult- negative HTN * Continued home medications: Lisinopril 20mg PO daily * Dr. Lin consulted for cardiac clearance - patient cleared for VATS DM * ISS- high and levemir 20 units SC QHS, will restart Metformin and Janumet in 48hrs since patient received contrast for the CTA. * Accuchecks * Monitor Prophylaxis * GI PPX: Pepcid 20mg PO daily * DVT PPX: Heparin Q12H * Zofran PRN * Colace BID * Carb Consistent Diet DW Simba Ch DO, PGY-1 <Daisha Desouza - Last Filed: 11/03/16 14:18> CCU Objective - Vital Signs / Intake & Output Vital Signs (Last 4 hours): Vital Signs Pulse Resp BP Pulse Ox 11/03/16 10:50 104 H 18 137/87 93 L Intake and Output (Last 8hrs): Intake & Output 11/02/16 11/03/16 11/03/16 22:59 06:59 14:59 Intake Total 885 450 300 Balance 885 450 300 Weight 258 lb Intake: IV 0 Intake, IV Amount 50 450 300 left antecubital 50 right forearm 450 300 Oral 0 0 Blood Product 775 0 Red Blood Cells Cpd As1 325 Lr Unit [id number] Red Blood Cells Cpd As1 325 Lr Unit [id number] Other 60 Red Blood Cells Cpd As1 60 Lr Unit [id number] Other: # Voids Urine, Voided 1 0 1 # Bowel Movements 0 - Medications Active Medications: Active Medications Generic Name Dose Route Start Last Admin Trade Name Kane PRN Reason Stop Dose Admin Docusate Sodium 100 mg 11/02/16 18:00 11/03/16 10:20 Colace PO Not Given BID [facility] Famotidine 20 mg 11/02/16 10:00 11/02/16 09:32 Pepcid PO 20 mg DAILY [facility] Administration Sodium Chloride 1,000 mls @ 50 mls/hr 11/02/16 02:15 11/02/16 02:50 Sodium Chloride 0.9% IV 50 mls/hr .Q20H [facility] Administration Imipenem/Cilastatin Sodium 500 100 mls @ 100 mls/hr 11/02/16 18:00 11/03/16 11:00 mg/ Sodium Chloride IVPB 100 mls/hr Q6H [facility] Administration Telavancin 750 mg/ Sodium 100 mls @ 100 mls/hr 11/02/16 19:00 11/02/16 18:54 Chloride IVPB 100 mls/hr Q24H [facility] Administration Insulin Aspart 0 unit 11/02/16 07:30 11/03/16 12:22 Novolog SC Not Given ACHS [facility] Protocol Insulin Detemir 20 unit 11/03/16 22:00 Levemir SC HS [facility] Lisinopril 20 mg 11/02/16 10:00 04/27/17 10:21 Zestril PO Not Given DAILY [facility] Metoprolol Tartrate 50 mg 11/03/16 08:45 11/03/16 08:53 Lopressor PO 50 mg Q12H [facility] Administration - Patient Studies Lab Studies: Microbiology Studies 11/02/16 02:31 MRSA Culture (Admit) - Final Nose MRSA NOT DETECTED Lab Studies 11/03/16 11/03/16 11/03/16 Range/Units 08:49 08:05 08:04 WBC (4.8-10.8) K/uL RBC (4.40-5.90) Mil/uL Hgb (12.0-18.0) g/dL Hct (35.0-51.0) % MCV (80.0-94.0) fL MCH (27.0-31.0) pg MCHC (33.0-37.0) g/dL RDW (11.5-14.5) % Plt Count (130-400) K/uL MPV (7.2-11.7) fL Neut % (Auto) (50.0-75.0) % Lymph % (Auto) (20.0-40.0) % Hudson % (Auto) (0.0-10.0) % Eos % (Auto) (0.0-4.0) % Baso % (Auto) (0.0-2.0) % Neut # (1.8-7.0) K/uL Lymph # (1.0-4.3) K/uL Hudson # (0.0-0.8) K/uL Eos # (0.0-0.7) K/uL Baso # (0.0-0.2) K/uL PT 15.2 H (9.7-12.2) SECONDS INR 1.3 APTT 32 (21-34) SECONDS Sodium (132-148) mmol/L Potassium (3.6-5.2) mmol/L Chloride (98-107) mmol/L Carbon Dioxide (22-30) mmol/L Anion Gap (10-20) BUN (9-20) mg/dL Creatinine (0.8-1.5) MG/DL Est GFR ( Amer) Est GFR (Non-Af Amer) POC Glucose (mg/dL) 320 H (65-110) mg/dL Random Glucose (75-110) mg/dL Calcium (8.6-10.4) mg/dl Phosphorus (2.5-4.5) mg/dL Magnesium (1.6-2.3) mg/dL Total Bilirubin (0.2-1.3) mg/dL AST (17-59) U/L ALT (21-72) U/L Alkaline Phosphatase (38-126) U/L Total Protein (6.3-8.3) g/dL Albumin (3.5-5.0) g/dL Globulin (2.2-3.9) gm/dL Albumin/Globulin Ratio (1.0-2.1) Stool Occult Blood (NEGATIVE) Vancomycin Trough (5.0-10.0) ug/mL Rheum Arthritis Panel (NEGATIVE) Ur L.pneumophila Ag Negative (NEGATIVE) Blood Type Antibody Screen 11/03/16 11/03/16 11/03/16 Range/Units 06:32 06:32 06:32 WBC 5.0 (4.8-10.8) K/uL RBC 3.37 L (4.40-5.90) Mil/uL Hgb 9.4 L (12.0-18.0) g/dL Hct 28.8 L (35.0-51.0) % MCV 85.3 (80.0-94.0) fL MCH 27.9 (27.0-31.0) pg MCHC 32.6 L (33.0-37.0) g/dL RDW 13.8 (11.5-14.5) % Plt Count 225 (130-400) K/uL MPV 9.0 (7.2-11.7) fL Neut % (Auto) 72.6 (50.0-75.0) % Lymph % (Auto) 16.7 L (20.0-40.0) % Hudson % (Auto) 9.1 (0.0-10.0) % Eos % (Auto) 0.9 (0.0-4.0) % Baso % (Auto) 0.7 (0.0-2.0) % Neut # 3.6 (1.8-7.0) K/uL Lymph # 0.8 L (1.0-4.3) K/uL Hudson # 0.5 (0.0-0.8) K/uL Eos # 0.0 (0.0-0.7) K/uL Baso # 0.0 (0.0-0.2) K/uL PT (9.7-12.2) SECONDS INR APTT (21-34) SECONDS Sodium 132 (132-148) mmol/L Potassium 4.1 (3.6-5.2) mmol/L Chloride 98 (98-107) mmol/L Carbon Dioxide 19 L (22-30) mmol/L Anion Gap 19 (10-20) BUN 13 (9-20) mg/dL Creatinine 0.5 L (0.8-1.5) MG/DL Est GFR ( Amer) > 60 Est GFR (Non-Af Amer) > 60 POC Glucose (mg/dL) (65-110) mg/dL Random Glucose 313 H (75-110) mg/dL Calcium 8.2 L (8.6-10.4) mg/dl Phosphorus 3.8 (2.5-4.5) mg/dL Magnesium 2.1 (1.6-2.3) mg/dL Total Bilirubin 1.0 (0.2-1.3) mg/dL AST 20 (17-59) U/L ALT 16 L (21-72) U/L Alkaline Phosphatase 103 (38-126) U/L Total Protein 7.1 (6.3-8.3) g/dL Albumin 3.0 L (3.5-5.0) g/dL Globulin 4.1 H (2.2-3.9) gm/dL Albumin/Globulin Ratio 0.7 L (1.0-2.1) Stool Occult Blood (NEGATIVE) Vancomycin Trough < 5.0 L (5.0-10.0) ug/mL Rheum Arthritis Panel (NEGATIVE) Ur L.pneumophila Ag (NEGATIVE) Blood Type Antibody Screen 11/02/16 11/02/16 11/02/16 Range/Units 22:47 21:35 21:02 WBC 5.4 (4.8-10.8) K/uL RBC 3.13 L (4.40-5.90) Mil/uL Hgb 8.8 L (12.0-18.0) g/dL Hct 26.6 L (35.0-51.0) % MCV 84.9 (80.0-94.0) fL MCH 27.9 (27.0-31.0) pg MCHC 32.9 L (33.0-37.0) g/dL RDW 14.2 (11.5-14.5) % Plt Count 210 (130-400) K/uL MPV 9.0 (7.2-11.7) fL Neut % (Auto) (50.0-75.0) % Lymph % (Auto) (20.0-40.0) % Hudson % (Auto) (0.0-10.0) % Eos % (Auto) (0.0-4.0) % Baso % (Auto) (0.0-2.0) % Neut # (1.8-7.0) K/uL Lymph # (1.0-4.3) K/uL Hudson # (0.0-0.8) K/uL Eos # (0.0-0.7) K/uL Baso # (0.0-0.2) K/uL PT (9.7-12.2) SECONDS INR APTT (21-34) SECONDS Sodium (132-148) mmol/L Potassium (3.6-5.2) mmol/L Chloride (98-107) mmol/L Carbon Dioxide (22-30) mmol/L Anion Gap (10-20) BUN (9-20) mg/dL Creatinine (0.8-1.5) MG/DL Est GFR ( Amer) Est GFR (Non-Af Amer) POC Glucose (mg/dL) 357 H (65-110) mg/dL Random Glucose (75-110) mg/dL Calcium (8.6-10.4) mg/dl Phosphorus (2.5-4.5) mg/dL Magnesium (1.6-2.3) mg/dL Total Bilirubin (0.2-1.3) mg/dL AST (17-59) U/L ALT (21-72) U/L Alkaline Phosphatase (38-126) U/L Total Protein (6.3-8.3) g/dL Albumin (3.5-5.0) g/dL Globulin (2.2-3.9) gm/dL Albumin/Globulin Ratio (1.0-2.1) Stool Occult Blood Negative (NEGATIVE) Vancomycin Trough (5.0-10.0) ug/mL Rheum Arthritis Panel (NEGATIVE) Ur L.pneumophila Ag (NEGATIVE) Blood Type Antibody Screen 11/02/16 11/02/16 11/02/16 Range/Units 16:35 10:30 08:49 WBC (4.8-10.8) K/uL RBC (4.40-5.90) Mil/uL Hgb (12.0-18.0) g/dL Hct (35.0-51.0) % MCV (80.0-94.0) fL MCH (27.0-31.0) pg MCHC (33.0-37.0) g/dL RDW (11.5-14.5) % Plt Count (130-400) K/uL MPV (7.2-11.7) fL Neut % (Auto) (50.0-75.0) % Lymph % (Auto) (20.0-40.0) % Hudson % (Auto) (0.0-10.0) % Eos % (Auto) (0.0-4.0) % Baso % (Auto) (0.0-2.0) % Neut # (1.8-7.0) K/uL Lymph # (1.0-4.3) K/uL Hudson # (0.0-0.8) K/uL Eos # (0.0-0.7) K/uL Baso # (0.0-0.2) K/uL PT (9.7-12.2) SECONDS INR APTT (21-34) SECONDS Sodium (132-148) mmol/L Potassium (3.6-5.2) mmol/L Chloride (98-107) mmol/L Carbon Dioxide (22-30) mmol/L Anion Gap (10-20) BUN (9-20) mg/dL Creatinine (0.8-1.5) MG/DL Est GFR ( Amer) Est GFR (Non-Af Amer) POC Glucose (mg/dL) 329 H (65-110) mg/dL Random Glucose (75-110) mg/dL Calcium (8.6-10.4) mg/dl Phosphorus (2.5-4.5) mg/dL Magnesium (1.6-2.3) mg/dL Total Bilirubin (0.2-1.3) mg/dL AST (17-59) U/L ALT (21-72) U/L Alkaline Phosphatase (38-126) U/L Total Protein (6.3-8.3) g/dL Albumin (3.5-5.0) g/dL Globulin (2.2-3.9) gm/dL Albumin/Globulin Ratio (1.0-2.1) Stool Occult Blood (NEGATIVE) Vancomycin Trough (5.0-10.0) ug/mL Rheum Arthritis Panel Negative (NEGATIVE) Ur L.pneumophila Ag (NEGATIVE) Blood Type O POSITIVE Antibody Screen Negative Laboratory Results - last 24 hr 11/02/16 11/02/16 11/02/16 08:49 10:30 16:35 WBC RBC Hgb Hct MCV MCH MCHC RDW Plt Count MPV Neut % (Auto) Lymph % (Auto) Hudson % (Auto) Eos % (Auto) Baso % (Auto) Neut # Lymph # Hudson # Eos # Baso # PT INR APTT Sodium Potassium Chloride Carbon Dioxide Anion Gap BUN Creatinine Est GFR ( Amer) Est GFR (Non-Af Amer) POC Glucose (mg/dL) 329 H Random Glucose Calcium Phosphorus Magnesium Total Bilirubin AST ALT Alkaline Phosphatase Total Protein Albumin Globulin Albumin/Globulin Ratio Stool Occult Blood Vancomycin Trough Rheum Arthritis Panel Negative Ur L.pneumophila Ag Blood Type O POSITIVE Antibody Screen Negative 11/02/16 11/02/16 11/02/16 21:02 21:35 22:47 WBC 5.4 RBC 3.13 L Hgb 8.8 L Hct 26.6 L MCV 84.9 MCH 27.9 MCHC 32.9 L RDW 14.2 Plt Count 210 MPV 9.0 Neut % (Auto) Lymph % (Auto) Hudson % (Auto) Eos % (Auto) Baso % (Auto) Neut # Lymph # Hudson # Eos # Baso # PT INR APTT Sodium Potassium Chloride Carbon Dioxide Anion Gap BUN Creatinine Est GFR ( Amer) Est GFR (Non-Af Amer) POC Glucose (mg/dL) 357 H Random Glucose Calcium Phosphorus Magnesium Total Bilirubin AST ALT Alkaline Phosphatase Total Protein Albumin Globulin Albumin/Globulin Ratio Stool Occult Blood Negative Vancomycin Trough Rheum Arthritis Panel Ur L.pneumophila Ag Blood Type Antibody Screen 11/03/16 11/03/16 11/03/16 06:32 06:32 06:32 WBC 5.0 RBC 3.37 L Hgb 9.4 L Hct 28.8 L MCV 85.3 MCH 27.9 MCHC 32.6 L RDW 13.8 Plt Count 225 MPV 9.0 Neut % (Auto) 72.6 Lymph % (Auto) 16.7 L Hudson % (Auto) 9.1 Eos % (Auto) 0.9 Baso % (Auto) 0.7 Neut # 3.6 Lymph # 0.8 L Hudson # 0.5 Eos # 0.0 Baso # 0.0 PT INR APTT Sodium 132 Potassium 4.1 Chloride 98 Carbon Dioxide 19 L Anion Gap 19 BUN 13 Creatinine 0.5 L Est GFR ( Amer) > 60 Est GFR (Non-Af Amer) > 60 POC Glucose (mg/dL) Random Glucose 313 H Calcium 8.2 L Phosphorus 3.8 Magnesium 2.1 Total Bilirubin 1.0 AST 20 ALT 16 L Alkaline Phosphatase 103 Total Protein 7.1 Albumin 3.0 L Globulin 4.1 H Albumin/Globulin Ratio 0.7 L Stool Occult Blood Vancomycin Trough < 5.0 L Rheum Arthritis Panel Ur L.pneumophila Ag Blood Type Antibody Screen 11/03/16 11/03/16 11/03/16 08:04 08:05 08:49 WBC RBC Hgb Hct MCV MCH MCHC RDW Plt Count MPV Neut % (Auto) Lymph % (Auto) Hudson % (Auto) Eos % (Auto) Baso % (Auto) Neut # Lymph # Hudson # Eos # Baso # PT 15.2 H INR 1.3 APTT 32 Sodium Potassium Chloride Carbon Dioxide Anion Gap BUN Creatinine Est GFR ( Amer) Est GFR (Non-Af Amer) POC Glucose (mg/dL) 320 H Random Glucose Calcium Phosphorus Magnesium Total Bilirubin AST ALT Alkaline Phosphatase Total Protein Albumin Globulin Albumin/Globulin Ratio Stool Occult Blood Vancomycin Trough Rheum Arthritis Panel Ur L.pneumophila Ag Negative Blood Type Antibody Screen Critical Care Progress Note - Nutrition Nutrition: Nutrition Category Date Time Status Consistent Carbohydrate [DIET] Diets 11/03/16 Dinner Active NPO Diet [DIET] Diets 11/03/16 Breakfast Active Attending/Attestation - Attestation I have personally seen and examined this patient.: Yes I have fully participated in the care of the patient.: Yes I have reviewed all pertinent clinical information: Yes Notes (Text): 11/03/16 14:16 Patient doing well, on RA breathing with out any discomfort. Went to get VATS this afternoon, still not back. Adde b-blockers to his medications since still tachycardic despite no more respiratory distress, will help decreasing slime-surgical mortality. Increase insulin regimen, BS not controlled.
[2016-11-03] MEDS ORDERED: Morphine 4 MG/ML VIAL ONE ×2 (13:30→14:12)
[2016-11-03 15:09] LABS: BODY FLUID TYPE PLEURAL
[2016-11-03] MEDS ORDERED: Bacitracin Ointment 30 GM TUBE ONE (15:42)
[2016-11-03] MEDS ORDERED: Neostigmine Methylsulfate 3mg/3ml Syringe IV ONE (15:44)
--- NOTE | 2016-11-03 17:00 | PCM.SURG1 ---
Surgeon's Initial Post Op Note - Surgeon's Notes Surgeon: Dr. Villagomez Business Process Associate: Dr. Finley, Dr. Elena Type of Anesthesia: General Endo Pre-Operative Diagnosis: R pleural effusion/empyema Operative Findings: see operative report Post-Operative Diagnosis: see operative report Operation Performed: VATS converted to thoracotomy. parietal pleurectomy. decortication. wedge resection of right lower love. Evacuation of empyema and fibrinous exudate Specimen/Specimens Removed: wedge resection right lower lobe. pleural fluid. fibrinous exudate. parietal pleura Estimated Blood Loss: EBL {In ML}: 300 Blood Products Given: PRBC Drains Used: Chest Tubes (x2: 28Fr Anterior, 32F Posterior) Post-Op Condition: Good Date of Surgery/Procedure: 11/03/16 Time of Surgery/Procedure: 12:00
[2016-11-03 17:15] LABS: BASO % 0.3 % (0.0-2.0); EOS % 0.1 % (0.0-4.0); HEMATOCRIT 29.6 % (35.0-51.0); LYMPH # 0.5 K/uL (1.0-4.3); LYMPH % 6.2 % (20.0-40.0); MEAN CELL VOLUME 86.1 fL (80.0-94.0); MEAN CORPUSCULAR HEMOGLOBIN 27.9 pg (27.0-31.0); MEAN CORPUSCULAR HGB CONC 32.4 g/dL (33.0-37.0); MEAN PLATELET VOLUME 9.3 fL (7.2-11.7); MONO # 0.7 K/uL (0.0-0.8); MONO % 8.5 % (0.0-10.0); PLATELET COUNT 277 K/uL (130-400); RED CELL DISTRIBUTION WIDTH 14.4 % (11.5-14.5); WHITE BLOOD COUNT 8.3 K/uL (4.8-10.8)
--- NOTE | 2016-11-03 17:18 | RAD ---
HISTORY: s/p thoracotomy COMPARISON: 10/24/2016 FINDINGS: LUNGS: There is interval insertion of either 1 or 2 chest tubes tips projecting just inferior to the posterior right 4th rib on the frontal view the right loculated pleural effusion although still present is less dense. The margins of the prior left pleural effusion loculated are also more info ill-defined on the current exam. There is right perihilar hazy opacities consistent with coalescing interstitial pulmonary edema PLEURA: As above. . No pneumothorax apparent. CARDIOVASCULAR: Mild cardiomegaly left ventricular enlargement configuration. OSSEOUS STRUCTURES: No significant abnormalities. VISUALIZED UPPER ABDOMEN: Normal. OTHER FINDINGS: None. IMPRESSION: History of right thoracotomy- no gross resection of a rib appreciated. There are however extensive opacities overlying the mid right hemithorax consistent with recent postop changes with right chest tube(s) positioning as above. No pneumothorax seen. No mediastinal shift noted . Right pleural parenchymal opacity consistent with an element of residual right loculated pleural fluid and probable pulmonary coalescent interstitial pulmonary edema Continued surveillance recommended
[2016-11-03 17:21] LABS: CHLORIDE 98 mmol/L (98-107); SODIUM 132 mmol/L (132-148)
[2016-11-03 17:22] LABS: POTASSIUM 4.3 mmol/L (3.6-5.2)
[2016-11-03 17:23] LABS: GFR AFRICAN-AMERICAN > 60
[2016-11-03] MEDS: Sodium Chloride 0.9% 1,000 ML IV SCH ×2 (17:23→17:27)
[2016-11-03 17:24] LABS: ALB/GLOB RATIO 0.7 (1.0-2.1); ALKALINE PHOSPHATASE 138 U/L (38-126); ALT/SGPT 25 U/L (21-72); AST/SGOT 24 U/L (17-59); BILIRUBIN,TOTAL 1.1 mg/dL (0.2-1.3); BLOOD UREA NITROGEN 11 mg/dL (9-20); CARBON DIOXIDE 21 mmol/L (22-30); GLUCOSE,RANDOM 371 mg/dL (75-110); PHOSPHOROUS 4.7 mg/dL (2.5-4.5); TOTAL PROTEIN 6.7 g/dL (6.3-8.3)
[2016-11-03 17:25] LABS: CALCIUM 7.9 mg/dl (8.6-10.4); MAGNESIUM 1.8 mg/dL (1.6-2.3)
[2016-11-03] MEDS: HYDROmorphone 1 mg/ml ISec IVP PRN (17:30)
[2016-11-03] MEDS: Telavancin Hydrochloride 750 MG in Sodium Chloride 0.9% 100 ML IVPB SCH (18:01)
--- NOTE | 2016-11-03 18:14 | CP.PCM.PN ---
Subjective - Date & Time of Evaluation Date of Evaluation: 11/03/16 Time of Evaluation: 18:10 - Subjective Subjective: Medical Attending Note Follow-up: Emypema, Pneumonia, Pleural Effusion, Hx of recent influenza, Diabetes, Hypertension Patient seen, examined with at bedside. Patient seen post-OR. Patient is drowsy, lethargic. Patient has 2 chest tubes over the right side chest pain. Discussed with CT surgery. benefit from IV antibiotics. Objective - Vital Signs/Intake and Output Vital Signs (last 24 hours): Temp Pulse Resp BP Pulse Ox 98.2 F 100 H 21 120/74 94 L 11/03/16 18:00 11/03/16 17:39 11/03/16 16:24 11/03/16 17:39 11/03/16 17:39 Intake and Output: 11/03/16 11/03/16 06:59 18:59 Intake Total 825 4000 Output Total 1851 Balance 825 2149 - Medications Medications: Current Medications Docusate Sodium (Colace) 100 mg PO BID [facility] Last Admin: 11/03/16 18:03 Dose: Not Given Famotidine (Pepcid) 20 mg PO DAILY [facility] Last Admin: 11/03/16 18:03 Dose: Not Given Hydromorphone HCl (Dilaudid) 1 mg IVP Q4H PRN PRN Reason: Pain, severe (8-10) Last Admin: 11/03/16 17:30 Dose: 1 mg Sodium Chloride (Sodium Chloride 0.9%) 1,000 mls @ 50 mls/hr IV .Q20H [facility] Last Admin: 11/03/16 17:27 Dose: 50 mls/hr Imipenem/Cilastatin Sodium 500 (mg/ Sodium Chloride) 100 mls @ 100 mls/hr IVPB Q6H [facility] Last Admin: 11/03/16 17:06 Dose: 100 mls/hr Telavancin 750 mg/ Sodium (Chloride) 100 mls @ 100 mls/hr IVPB Q24H [facility] Last Admin: 11/03/16 18:01 Dose: 100 mls/hr Insulin Aspart (Novolog) 0 unit SC ACHS [facility] PRN Reason: Protocol Last Admin: 11/03/16 17:05 Dose: 12 unit Insulin Detemir (Levemir) 20 unit SC HS [facility] Lisinopril (Zestril) 20 mg PO DAILY [facility] Last Admin: 11/03/16 10:21 Dose: Not Given Metoprolol Tartrate (Lopressor) 50 mg PO Q12H [facility] Last Admin: 11/03/16 08:53 Dose: 50 mg Oxycodone/Acetaminophen (Percocet 5/325 Mg Tab) 1 tab PO Q4H PRN PRN Reason: Pain, moderate (4-7) Stop: 11/06/16 17:25 - Labs Labs: 11/03/16 17:05 11/03/16 17:05 PT 15.2 SECONDS (9.7-12.2) H 11/03/16 08:05 INR 1.3 11/03/16 08:05 APTT 32 SECONDS (21-34) 11/03/16 08:05 - Constitutional Appears: Non-toxic, No Acute Distress - Head Exam Head Exam: NORMAL INSPECTION - Eye Exam Eye Exam: EOMI - ENT Exam ENT Exam: Mucous Membranes Moist - Respiratory Exam Respiratory Exam: Decreased Breath Sounds, Rales. absent: Respiratory Distress , Stridor Additional comments: chest tubes-right side; mild bloody output - Cardiovascular Exam Cardiovascular Exam: REGULAR RHYTHM, +S1, +S2 - GI/Abdominal Exam GI & Abdominal Exam: Soft, Normal Bowel Sounds. absent: Distended, Guarding, Rigid, Tenderness, Rebound - Extremities Exam Extremities Exam: absent: Pedal Edema, Tenderness - Back Exam Back Exam: absent: CVA tenderness (L), CVA tenderness (R) - Neurological Exam Neurological Exam: Alert, Awake - Psychiatric Exam Psychiatric exam: Normal Affect, Normal Mood - Skin Skin Exam: Dry, Normal Color, Warm Assessment and Plan (1) Empyema Status: Acute (2) Diabetes mellitus Status: Chronic (3) HTN (hypertension) Status: Chronic (4) Pneumonia Status: Acute (5) Prophylactic measure Status: Acute - Assessment and Plan (Free Text) Assessment: Assessment & Plan (1) Empyema Assessment and Plan: * CT surgery (Dr. Villagomez) on board * Infectious disease (Dr. East) on board * Hx of influenza (10/02/16) * Primaxin 500mg IV Q 6hout (active since 11/02/16) * Telavancin 750mg IV Q24 hours (active since 11/02/16) * Dilaudid 1mg IV Q 4hour PRN pain * pending fluid studies * Chest Xray (11/03/16): history of right thoracotomy-no gross resection of a rib appreciated. Extensive opacities overlying the mid right hemithorax. No pneumothorax seen. No mediastinal shift noed. Right pleural parenchymal opacity consistent w residual right loculated pleural fluid and probably pulmonary coalsecent interstitial edema. * Chest CT (11/02/16): No CT evidence for acute pulmonary embolism. Large right pleural effusion with compressive atelectasis in the lower love. Superimposed pneumonia cannot be excluded. Follow-up advised. * Operative note: VATS coverted to thoractomy, parietal pleurectomy, decortication, wedge resection of right lower love. Evacuation of empyema and fibrous exudate (given PRBC during OR)-->2 chest tubes * pending GC/Quantiferon * Aeronic, anaerobic, Blood culture, fungus culture, AFB, gram stain, mycobacterium, tissue culture collected * Echo (11/02/16): EF: 65% (official report available in the EMR) Status: Acute (2) Pleural effusion on right Status: Acute (3) Pneumonia Assessment and Plan: * Primaxin 500mg IVQ 6hour (active since 11/02/16) * Telavancin 750mg IV Q24 hours (active since 11/02/16) * Infectious disease (Dr. 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
[2016-11-03 19:16] LABS: LARGE PLATELETS PRESENT; NEUTROPHIL 79 % (50-75); SMUDGE CELLS PRESENT; TOTAL CELLS COUNTED 100
[2016-11-03] MEDS: Oxycodone/Acetaminophen 5/325 mg Tab PO PRN (19:43)
--- NOTE | 2016-11-03 20:25 | CP.PCM.PN ---
Subjective - Date & Time of Evaluation Date of Evaluation: 11/03/16 Time of Evaluation: 20:21 - Subjective Subjective: INFECTIOUS DISEASE ICU #15 PROGRESS NOTE MARIA DIAZ MD, FACP ICU #15 11/03/2016 CHART REVIEWED PT EXAMINED CASE DISCUSSED WITH ICU STAF AND FAMILY PT IS S/P URGENT RIGHT VAT-OPEN THORACOTOMY SECONDARY TO LOCULATED PLEURAL EFFUSION, POSSIBLE ABSCESS-EMPYEMA. 2 CHEST TUBES ON BASE OF RIGHT LUNG TALKATIVE BUT STARTS TO COUGH, ASSOICATED WITH PAIN. AWAITING C/S AND CYTOLOGY SUPPORTIVE MEASURES FOR THIS GENTLEMAN. Objective - Vital Signs/Intake and Output Vital Signs (last 24 hours): Temp Pulse Resp BP Pulse Ox 98.2 F 95 H 21 136/83 98 11/03/16 18:00 11/03/16 20:00 11/03/16 16:24 11/03/16 19:51 11/03/16 20:00 Intake and Output: 11/03/16 11/04/16 18:59 06:59 Intake Total 4100 390 Output Total 1976 279 Balance 2124 111 - Medications Medications: Current Medications Docusate Sodium (Colace) 100 mg PO BID [facility] Last Admin: 11/03/16 18:03 Dose: Not Given Famotidine (Pepcid) 20 mg PO DAILY [facility] Last Admin: 11/03/16 18:03 Dose: Not Given Hydromorphone HCl (Dilaudid) 1 mg IVP Q4H PRN PRN Reason: Pain, severe (8-10) Last Admin: 11/03/16 17:30 Dose: 1 mg Sodium Chloride (Sodium Chloride 0.9%) 1,000 mls @ 50 mls/hr IV .Q20H [facility] Last Admin: 11/03/16 17:27 Dose: 50 mls/hr Imipenem/Cilastatin Sodium 500 (mg/ Sodium Chloride) 100 mls @ 100 mls/hr IVPB Q6H [facility] Last Admin: 11/03/16 17:06 Dose: 100 mls/hr Telavancin 750 mg/ Sodium (Chloride) 100 mls @ 100 mls/hr IVPB Q24H [facility] Last Admin: 11/03/16 18:01 Dose: 100 mls/hr Insulin Aspart (Novolog) 0 unit SC ACHS [facility] PRN Reason: Protocol Last Admin: 11/03/16 17:05 Dose: 12 unit Insulin Detemir (Levemir) 20 unit SC [facility] Lisinopril (Zestril) 20 mg PO DAILY [facility] Last Admin: 11/03/16 10:21 Dose: Not Given Metoprolol Tartrate (Lopressor) 50 mg PO Q12H [facility] Last Admin: 11/03/16 19:44 Dose: 50 mg Oxycodone/Acetaminophen (Percocet 5/325 Mg Tab) 1 tab PO Q4H PRN PRN Reason: Pain, moderate (4-7) Stop: 11/06/16 17:25 Last Admin: 11/03/16 19:43 Dose: 1 tab Saccharomyces Boulardii (Florastor) 250 mg PO BID [facility] - Labs Labs: 11/03/16 17:05 11/03/16 17:05 PT 15.2 SECONDS (9.7-12.2) H 11/03/16 08:05 INR 1.3 11/03/16 08:05 APTT 32 SECONDS (21-34) 11/03/16 08:05 - Constitutional Appears: Non-toxic, In Acute Distress - Head Exam Head Exam: ATRAUMATIC - Eye Exam Eye Exam: Normal appearance - ENT Exam ENT Exam: Mucous Membranes Dry - Neck Exam Neck Exam: Normal Inspection - Respiratory Exam Respiratory Exam: Chest Wall Tenderness, Decreased Breath Sounds - Cardiovascular Exam Cardiovascular Exam: Tachycardia - GI/Abdominal Exam GI & Abdominal Exam: Soft. absent: Tenderness, Rebound - Rectal Exam Rectal Exam: Deferred - Extremities Exam Extremities Exam: Normal Capillary Refill. absent: Calf Tenderness - Neurological Exam Neurological Exam: Alert, Awake - Skin Skin Exam: Warm Additional comments: POST ANESTHESIS AND RECEIVING BLOOD TRANSFUSION. Assessment and Plan (1) Empyema Assessment & Plan: RIGHT LOWER LUNG ABSCESS ON VIBATIV(TELAVANCIN) AND PRIMAXIN 500MG IVPB Q 6 HOURS. Status: Acute (2) Dyspnea Status: Acute (3) Pleural effusion on right Status: Acute (4) Pneumonia Assessment & Plan: COMPLICATING Status: Acute (5) Hyperglycemia Status: Acute (6) HTN (hypertension) Status: Chronic (7) Tachycardia Status: Acute
[2016-11-03] MEDS ORDERED: Insulin Detemir 100 units/ml Vial (Levemir) SC SCH (22:00)
[2016-11-03 23:34] LABS: BF GROSS APPEARANCE TURBID (CLEAR)
[2016-11-03 23:35] LABS: BODY FLUID TOTAL COUNT 100 (0-0)
[2016-11-04] MEDS: HYDROmorphone 1 mg/ml ISec IVP PRN ×2 (00:28→04:53)
[2016-11-04] MEDS: Oxycodone/Acetaminophen 5/325 mg Tab PO PRN ×2 (02:49→07:09)
[2016-11-04 06:37] LABS: BASO % 0.2 % (0.0-2.0); EOS % 0.3 % (0.0-4.0); HEMATOCRIT 27.8 % (35.0-51.0); LYMPH % 13.7 % (20.0-40.0); MEAN CELL VOLUME 85.9 fL (80.0-94.0); MEAN CORPUSCULAR HEMOGLOBIN 28.1 pg (27.0-31.0); MEAN CORPUSCULAR HGB CONC 32.7 g/dL (33.0-37.0); MEAN PLATELET VOLUME 9.7 fL (7.2-11.7); MONO # 0.9 K/uL (0.0-0.8); RED CELL DISTRIBUTION WIDTH 14.1 % (11.5-14.5); WHITE BLOOD COUNT 7.6 K/uL (4.8-10.8)
[2016-11-04 06:57] LABS: CHLORIDE 93 mmol/L (98-107); POTASSIUM 3.9 mmol/L (3.6-5.2); SODIUM 129 mmol/L (132-148)
[2016-11-04 06:59] LABS: ALB/GLOB RATIO 0.7 (1.0-2.1); ALKALINE PHOSPHATASE 114 U/L (38-126); ALT/SGPT 18 U/L (21-72); AST/SGOT 27 U/L (17-59); BILIRUBIN,TOTAL 0.9 mg/dL (0.2-1.3); BLOOD UREA NITROGEN 11 mg/dL (9-20); CARBON DIOXIDE 24 mmol/L (22-30); GFR AFRICAN-AMERICAN > 60; GLUCOSE,RANDOM 252 mg/dL (75-110); TOTAL PROTEIN 6.3 g/dL (6.3-8.3)
[2016-11-04 07:00] LABS: CALCIUM 7.3 mg/dl (8.6-10.4); MAGNESIUM 1.7 mg/dL (1.6-2.3); PHOSPHOROUS 3.5 mg/dL (2.5-4.5)
[2016-11-04 07:07] LABS: IRON 36 ug/dL (49-181)
--- NOTE | 2016-11-04 08:00 | CP.CCUPN ---
<Martha Cottrell - Last Filed: 11/04/16 09:16> CCU Subjective - Physician Review Subjective (Free Text): Patient was seen and examined at bedside. Patient reports some pain at the chest tube site. Patient started on morphine SPOOL TENDER and continued Percocet standing order. Patient is tolerating diet well. Chest tube #1 ouput: 350cc/24 CT#2 output:300cc/24. CCU Objective - Vital Signs / Intake & Output Vital Signs (Last 4 hours): Vital Signs Temp Pulse Resp BP Pulse Ox 11/04/16 07:00 102 H 23 99 11/04/16 06:51 135/80 11/04/16 06:50 100 H 21 99 11/04/16 06:30 99 H 25 H 99 11/04/16 06:04 102 H 20 146/86 99 11/04/16 06:03 102 H 16 98 11/04/16 06:00 105 H 19 99 11/04/16 05:30 105 H 20 98 11/04/16 05:00 103 H 22 97 11/04/16 04:51 98 H 21 132/81 98 11/04/16 04:30 101 H 21 98 11/04/16 04:01 105 H 20 97 11/04/16 04:00 99.5 F Intake and Output (Last 8hrs): Intake & Output 11/03/16 11/04/16 11/04/16 22:59 06:59 14:59 Intake Total 1890 750 50 Output Total 2370 795 45 Balance -480 -45 5 Weight 260 lb Intake: IV 1000 Intake, IV Amount 550 500 50 Left Hand 550 500 50 Oral 340 250 Output: Chest Tube Drainage 330 320 Right Mid-Axillary Chest 190 160 Right Mid-Axillary Chest 140 160 #2 Urine 2040 475 45 2-way Urethral 740 475 45 - Physical Exam Head: Positive for: Atraumatic, Normocephalic Pupils: Positive for: PERRL Extroacular Muscles: Positive for: EOMI Conjunctiva: Positive for: Normal Mouth: Positive for: Moist Mucous Membranes Respiratory/Chest: Positive for: Decreased Breath Sounds, Other (on BIPAP). Negative for: Respiratory Distress, Accessory Muscle Use Cardiovascular: Positive for: Regular Rate and Rhythm, Normal S1, S2, Other (2 chest tubes, right sided ) Abdomen: Positive for: Normal Bowel Sounds. Negative for: Tenderness, Distention Upper Extremity: Positive for: Normal Inspection, Normal ROM, NORMAL PULSES. Negative for: Cyanosis, Edema Lower Extremity: Positive for: Normal Inspection, NORMAL PULSES. Negative for: Edema, CALF TENDERNESS Neurological: Positive for: GCS=15, CN II-XII Intact Skin: Positive for: Warm, Dry, Normal Color - Medications Active Medications: Active Medications Generic Name Dose Route Start Last Admin Trade Name Freq PRN Reason Stop Dose Admin Docusate Sodium 100 mg 11/02/16 18:00 11/03/16 18:03 Colace PO Not Given BID SHANNON Famotidine 20 mg 11/02/16 10:00 11/03/16 18:03 Pepcid PO Not Given DAILY [facility] Hydromorphone HCl 1 mg 11/03/16 17:24 11/04/16 04:53 Dilaudid IVP 1 mg Q4H PRN Administration Pain, severe (8-10) Sodium Chloride 1,000 mls @ 50 mls/hr 11/02/16 02:15 11/03/16 17:27 Sodium Chloride 0.9% IV 50 mls/hr .Q20H SHANNON Administration Imipenem/Cilastatin Sodium 500 100 mls @ 100 mls/hr 11/02/16 18:00 11/04/16 05:17 mg/ Sodium Chloride IVPB 100 mls/hr Q6H SHANNON Administration Telavancin 750 mg/ Sodium 100 mls @ 100 mls/hr 11/02/16 19:00 11/03/16 18:01 Chloride IVPB 100 mls/hr Q24H SHANNON Administration Insulin Aspart 0 unit 11/02/16 07:30 11/03/16 21:10 Novolog SC 3 unit ACHS SHANNON Administration Protocol Insulin Detemir 20 unit 11/03/16 22:00 11/03/16 21:11 Levemir SC 20 unit HS SHANNON Administration Lisinopril 20 mg 11/02/16 10:00 11/03/16 10:21 Zestril PO Not Given DAILY [facility] Metoprolol Tartrate 50 mg 11/03/16 08:45 11/03/16 19:44 Lopressor PO 50 mg Q12H SHANNON Administration Oxycodone/Acetaminophen 1 tab 11/03/16 17:24 11/04/16 07:09 Percocet 5/325 Mg Tab PO 11/06/16 17:25 1 tab Q4H PRN Administration Pain, moderate (4-7) Saccharomyces Boulardii 250 mg 11/04/16 10:00 Florastor PO BID SHANNON - Patient Studies Lab Studies: Microbiology Studies 11/03/16 Unknown Gram Stain - Final Pleural Fluid 11/03/16 Unknown Gram Stain - Final Lung 11/02/16 02:31 MRSA Culture (Admit) - Final Nose MRSA NOT DETECTED Lab Studies 11/04/16 11/04/16 11/04/16 Range/Units 07:48 07:31 06:28 WBC 7.6 (4.8-10.8) K/uL RBC 3.24 L (4.40-5.90) Mil/uL Hgb 9.1 L (12.0-18.0) g/dL Hct 27.8 L (35.0-51.0) % MCV 85.9 (80.0-94.0) fL MCH 28.1 (27.0-31.0) pg MCHC 32.7 L (33.0-37.0) g/dL RDW 14.1 (11.5-14.5) % Plt Count 274 (130-400) K/uL MPV 9.7 (7.2-11.7) fL Neut % (Auto) 73.8 (50.0-75.0) % Lymph % (Auto) 13.7 L (20.0-40.0) % Victoria % (Auto) 12.0 H (0.0-10.0) % Eos % (Auto) 0.3 (0.0-4.0) % Baso % (Auto) 0.2 (0.0-2.0) % Neut # 5.6 (1.8-7.0) K/uL Lymph # 1.0 (1.0-4.3) K/uL Victoria # 0.9 H (0.0-0.8) K/uL Eos # 0.0 (0.0-0.7) K/uL Baso # 0.0 (0.0-0.2) K/uL Neutrophils % (Manual) (50-75) % Band Neutrophils % (0-2) % Lymphocytes % (Manual) (20-40) % Monocytes % (Manual) (0-10) % Hypersegmented Polys Smudge Cells Platelet Estimate (NORMAL) Large Platelets Polychromasia Poikilocytosis (manual Anisocytosis (manual) Microcytosis (manual) Retic Count 3.0 H (0.5-1.5) % PT (9.7-12.2) SECONDS INR APTT (21-34) SECONDS Sodium (132-148) mmol/L Potassium (3.6-5.2) mmol/L Chloride (98-107) mmol/L Carbon Dioxide (22-30) mmol/L Anion Gap (10-20) BUN (9-20) mg/dL Creatinine (0.8-1.5) MG/DL Est GFR ( Amer) Est GFR (Non-Af Amer) POC Glucose (mg/dL) 316 H (65-110) mg/dL Random Glucose (75-110) mg/dL Calcium (8.6-10.4) mg/dl Phosphorus (2.5-4.5) mg/dL Magnesium (1.6-2.3) mg/dL Iron (49-181) ug/dL TIBC (250-450) ug/dL % Saturation (20-55) Total Bilirubin (0.2-1.3) mg/dL AST (17-59) U/L ALT (21-72) U/L Alkaline Phosphatase (38-126) U/L Total Protein (6.3-8.3) g/dL Albumin (3.5-5.0) g/dL Globulin (2.2-3.9) gm/dL Albumin/Globulin Ratio (1.0-2.1) Vitamin B12 (239-931) pg/mL Fluid Source Fluid Appearance (CLEAR) Fluid pH Fluid WBC (0.0-300.0) /mm3 Fluid RBC (0.0-0.0) /mm3 Fluid Tot Cell Count (0-0) Fluid Neutrophils (0-0) % Fluid Lymphocytes (0-0) % Fld Monocyte/Macrophag Fluid Comment Hep Bs Antigen (NEGATIVE) Hep B Core IgM Ab (NEGATIVE) Hepatitis C Antibody (NEGATIVE) HIV 1&2 Antibody Screen (NEGATIVE) Ur L.pneumophila Ag (NEGATIVE) Blood Type Antibody Screen 11/04/16 11/04/16 11/04/16 Range/Units 06:26 06:26 06:26 WBC (4.8-10.8) K/uL RBC (4.40-5.90) Mil/uL Hgb (12.0-18.0) g/dL Hct (35.0-51.0) % MCV (80.0-94.0) fL MCH (27.0-31.0) pg MCHC (33.0-37.0) g/dL RDW (11.5-14.5) % Plt Count (130-400) K/uL MPV (7.2-11.7) fL Neut % (Auto) (50.0-75.0) % Lymph % (Auto) (20.0-40.0) % Victoria % (Auto) (0.0-10.0) % Eos % (Auto) (0.0-4.0) % Baso % (Auto) (0.0-2.0) % Neut # (1.8-7.0) K/uL Lymph # (1.0-4.3) K/uL Victoria # (0.0-0.8) K/uL Eos # (0.0-0.7) K/uL Baso # (0.0-0.2) K/uL Neutrophils % (Manual) (50-75) % Band Neutrophils % (0-2) % Lymphocytes % (Manual) (20-40) % Monocytes % (Manual) (0-10) % Hypersegmented Polys Smudge Cells Platelet Estimate (NORMAL) Large Platelets Polychromasia Poikilocytosis (manual Anisocytosis (manual) Microcytosis (manual) Retic Count (0.5-1.5) % PT (9.7-12.2) SECONDS INR APTT (21-34) SECONDS Sodium (132-148) mmol/L Potassium (3.6-5.2) mmol/L Chloride (98-107) mmol/L Carbon Dioxide (22-30) mmol/L Anion Gap (10-20) BUN (9-20) mg/dL Creatinine (0.8-1.5) MG/DL Est GFR ( Amer) Est GFR (Non-Af Amer) POC Glucose (mg/dL) (65-110) mg/dL Random Glucose (75-110) mg/dL Calcium (8.6-10.4) mg/dl Phosphorus (2.5-4.5) mg/dL Magnesium (1.6-2.3) mg/dL Iron 36 L (49-181) ug/dL TIBC 156 L (250-450) ug/dL % Saturation 23 (20-55) Total Bilirubin (0.2-1.3) mg/dL AST (17-59) U/L ALT (21-72) U/L Alkaline Phosphatase (38-126) U/L Total Protein (6.3-8.3) g/dL Albumin (3.5-5.0) g/dL Globulin (2.2-3.9) gm/dL Albumin/Globulin Ratio (1.0-2.1) Vitamin B12 (239-931) pg/mL Fluid Source Fluid Appearance (CLEAR) Fluid pH Fluid WBC (0.0-300.0) /mm3 Fluid RBC (0.0-0.0) /mm3 Fluid Tot Cell Count (0-0) Fluid Neutrophils (0-0) % Fluid Lymphocytes (0-0) % Fld Monocyte/Macrophag Fluid Comment Hep Bs Antigen (NEGATIVE) Hep B Core IgM Ab Negative (NEGATIVE) Hepatitis C Antibody Negative (NEGATIVE) HIV 1&2 Antibody Screen Negative (NEGATIVE) Ur L.pneumophila Ag (NEGATIVE) Blood Type Antibody Screen 11/04/16 11/03/16 11/03/16 Range/Units 06:26 21:00 17:05 WBC 8.3 D (4.8-10.8) K/uL RBC 3.44 L (4.40-5.90) Mil/uL Hgb 9.6 L (12.0-18.0) g/dL Hct 29.6 L (35.0-51.0) % MCV 86.1 (80.0-94.0) fL MCH 27.9 (27.0-31.0) pg MCHC 32.4 L (33.0-37.0) g/dL RDW 14.4 (11.5-14.5) % Plt Count 277 (130-400) K/uL MPV 9.3 (7.2-11.7) fL Neut % (Auto) 84.9 H (50.0-75.0) % Lymph % (Auto) 6.2 L (20.0-40.0) % Victoria % (Auto) 8.5 (0.0-10.0) % Eos % (Auto) 0.1 (0.0-4.0) % Baso % (Auto) 0.3 (0.0-2.0) % Neut # 7.0 (1.8-7.0) K/uL Lymph # 0.5 L (1.0-4.3) K/uL Victoria # 0.7 (0.0-0.8) K/uL Eos # 0.0 (0.0-0.7) K/uL Baso # 0.0 (0.0-0.2) K/uL Neutrophils % (Manual) 79 H (50-75) % Band Neutrophils % 5 H (0-2) % Lymphocytes % (Manual) 7 L (20-40) % Monocytes % (Manual) 9 (0-10) % Hypersegmented Polys Present Smudge Cells Present Platelet Estimate Normal (NORMAL) Large Platelets Present Polychromasia Slight Poikilocytosis (manual Slight Anisocytosis (manual) Slight Microcytosis (manual) Slight Retic Count (0.5-1.5) % PT (9.7-12.2) SECONDS INR APTT (21-34) SECONDS Sodium 129 L (132-148) mmol/L Potassium 3.9 (3.6-5.2) mmol/L Chloride 93 L (98-107) mmol/L Carbon Dioxide 24 (22-30) mmol/L Anion Gap 16 (10-20) BUN 11 (9-20) mg/dL Creatinine 0.5 L (0.8-1.5) MG/DL Est GFR ( Amer) > 60 Est GFR (Non-Af Amer) > 60 POC Glucose (mg/dL) 373 H (65-110) mg/dL Random Glucose 252 H (75-110) mg/dL Calcium 7.3 L (8.6-10.4) mg/dl Phosphorus 3.5 (2.5-4.5) mg/dL Magnesium 1.7 (1.6-2.3) mg/dL Iron (49-181) ug/dL TIBC (250-450) ug/dL % Saturation (20-55) Total Bilirubin 0.9 (0.2-1.3) mg/dL AST 27 (17-59) U/L ALT 18 L D (21-72) U/L Alkaline Phosphatase 114 (38-126) U/L Total Protein 6.3 (6.3-8.3) g/dL Albumin 2.6 L (3.5-5.0) g/dL Globulin 3.7 (2.2-3.9) gm/dL Albumin/Globulin Ratio 0.7 L (1.0-2.1) Vitamin B12 684 (239-931) pg/mL Fluid Source Fluid Appearance (CLEAR) Fluid pH Fluid WBC (0.0-300.0) /mm3 Fluid RBC (0.0-0.0) /mm3 Fluid Tot Cell Count (0-0) Fluid Neutrophils (0-0) % Fluid Lymphocytes (0-0) % Fld Monocyte/Macrophag Fluid Comment Hep Bs Antigen Negative (NEGATIVE) Hep B Core IgM Ab (NEGATIVE) Hepatitis C Antibody (NEGATIVE) HIV 1&2 Antibody Screen (NEGATIVE) Ur L.pneumophila Ag (NEGATIVE) Blood Type Antibody Screen 11/03/16 11/03/16 11/03/16 Range/Units 17:05 16:31 15:06 WBC (4.8-10.8) K/uL RBC (4.40-5.90) Mil/uL Hgb (12.0-18.0) g/dL Hct (35.0-51.0) % MCV (80.0-94.0) fL MCH (27.0-31.0) pg MCHC (33.0-37.0) g/dL RDW (11.5-14.5) % Plt Count (130-400) K/uL MPV (7.2-11.7) fL Neut % (Auto) (50.0-75.0) % Lymph % (Auto) (20.0-40.0) % Victoria % (Auto) (0.0-10.0) % Eos % (Auto) (0.0-4.0) % Baso % (Auto) (0.0-2.0) % Neut # (1.8-7.0) K/uL Lymph # (1.0-4.3) K/uL Victoria # (0.0-0.8) K/uL Eos # (0.0-0.7) K/uL Baso # (0.0-0.2) K/uL Neutrophils % (Manual) (50-75) % Band Neutrophils % (0-2) % Lymphocytes % (Manual) (20-40) % Monocytes % (Manual) (0-10) % Hypersegmented Polys Smudge Cells Platelet Estimate (NORMAL) Large Platelets Polychromasia Poikilocytosis (manual Anisocytosis (manual) Microcytosis (manual) Retic Count (0.5-1.5) % PT (9.7-12.2) SECONDS INR APTT (21-34) SECONDS Sodium 132 (132-148) mmol/L Potassium 4.3 (3.6-5.2) mmol/L Chloride 98 (98-107) mmol/L Carbon Dioxide 21 L (22-30) mmol/L Anion Gap 17 (10-20) BUN 11 (9-20) mg/dL Creatinine 0.6 L (0.8-1.5) MG/DL Est GFR ( Amer) > 60 Est GFR (Non-Af Amer) > 60 POC Glucose (mg/dL) 397 H (65-110) mg/dL Random Glucose 371 H (75-110) mg/dL Calcium 7.9 L (8.6-10.4) mg/dl Phosphorus 4.7 H (2.5-4.5) mg/dL Magnesium 1.8 (1.6-2.3) mg/dL Iron (49-181) ug/dL TIBC (250-450) ug/dL % Saturation (20-55) Total Bilirubin 1.1 (0.2-1.3) mg/dL AST 24 (17-59) U/L ALT 25 (21-72) U/L Alkaline Phosphatase 138 H D (38-126) U/L Total Protein 6.7 (6.3-8.3) g/dL Albumin 2.7 L (3.5-5.0) g/dL Globulin 4.0 H (2.2-3.9) gm/dL Albumin/Globulin Ratio 0.7 L (1.0-2.1) Vitamin B12 (239-931) pg/mL Fluid Source Fluid Appearance (CLEAR) Fluid pH 6.0 Fluid WBC (0.0-300.0) /mm3 Fluid RBC (0.0-0.0) /mm3 Fluid Tot Cell Count (0-0) Fluid Neutrophils (0-0) % Fluid Lymphocytes (0-0) % Fld Monocyte/Macrophag Fluid Comment Hep Bs Antigen (NEGATIVE) Hep B Core IgM Ab (NEGATIVE) Hepatitis C Antibody (NEGATIVE) HIV 1&2 Antibody Screen (NEGATIVE) Ur L.pneumophila Ag (NEGATIVE) Blood Type Antibody Screen 11/03/16 11/03/16 11/03/16 Range/Units 15:06 08:49 08:05 WBC (4.8-10.8) K/uL RBC (4.40-5.90) Mil/uL Hgb (12.0-18.0) g/dL Hct (35.0-51.0) % MCV (80.0-94.0) fL MCH (27.0-31.0) pg MCHC (33.0-37.0) g/dL RDW (11.5-14.5) % Plt Count (130-400) K/uL MPV (7.2-11.7) fL Neut % (Auto) (50.0-75.0) % Lymph % (Auto) (20.0-40.0) % Victoria % (Auto) (0.0-10.0) % Eos % (Auto) (0.0-4.0) % Baso % (Auto) (0.0-2.0) % Neut # (1.8-7.0) K/uL Lymph # (1.0-4.3) K/uL Victoria # (0.0-0.8) K/uL Eos # (0.0-0.7) K/uL Baso # (0.0-0.2) K/uL Neutrophils % (Manual) (50-75) % Band Neutrophils % (0-2) % Lymphocytes % (Manual) (20-40) % Monocytes % (Manual) (0-10) % Hypersegmented Polys Smudge Cells Platelet Estimate (NORMAL) Large Platelets Polychromasia Poikilocytosis (manual Anisocytosis (manual) Microcytosis (manual) Retic Count (0.5-1.5) % PT 15.2 H (9.7-12.2) SECONDS INR 1.3 APTT 32 (21-34) SECONDS Sodium (132-148) mmol/L Potassium (3.6-5.2) mmol/L Chloride (98-107) mmol/L Carbon Dioxide (22-30) mmol/L Anion Gap (10-20) BUN (9-20) mg/dL Creatinine (0.8-1.5) MG/DL Est GFR ( Amer) Est GFR (Non-Af Amer) POC Glucose (mg/dL) (65-110) mg/dL Random Glucose (75-110) mg/dL Calcium (8.6-10.4) mg/dl Phosphorus (2.5-4.5) mg/dL Magnesium (1.6-2.3) mg/dL Iron (49-181) ug/dL TIBC (250-450) ug/dL % Saturation (20-55) Total Bilirubin (0.2-1.3) mg/dL AST (17-59) U/L ALT (21-72) U/L Alkaline Phosphatase (38-126) U/L Total Protein (6.3-8.3) g/dL Albumin (3.5-5.0) g/dL Globulin (2.2-3.9) gm/dL Albumin/Globulin Ratio (1.0-2.1) Vitamin B12 (239-931) pg/mL Fluid Source Pleural Fluid Appearance Turbid (CLEAR) Fluid pH Fluid WBC 094131.0 H (0.0-300.0) /mm3 Fluid RBC 7860.0 H (0.0-0.0) /mm3 Fluid Tot Cell Count 100 H (0-0) Fluid Neutrophils 95.0 H (0-0) % Fluid Lymphocytes 5.0 H (0-0) % Fld Monocyte/Macrophag TEST NOT PERFORMED Fluid Comment Hep Bs Antigen (NEGATIVE) Hep B Core IgM Ab (NEGATIVE) Hepatitis C Antibody (NEGATIVE) HIV 1&2 Antibody Screen (NEGATIVE) Ur L.pneumophila Ag Negative (NEGATIVE) Blood Type Antibody Screen 11/03/16 11/02/16 Range/Units 08:04 08:49 WBC (4.8-10.8) K/uL RBC (4.40-5.90) Mil/uL Hgb (12.0-18.0) g/dL Hct (35.0-51.0) % MCV (80.0-94.0) fL MCH (27.0-31.0) pg MCHC (33.0-37.0) g/dL RDW (11.5-14.5) % Plt Count (130-400) K/uL MPV (7.2-11.7) fL Neut % (Auto) (50.0-75.0) % Lymph % (Auto) (20.0-40.0) % Victoria % (Auto) (0.0-10.0) % Eos % (Auto) (0.0-4.0) % Baso % (Auto) (0.0-2.0) % Neut # (1.8-7.0) K/uL Lymph # (1.0-4.3) K/uL Victoria # (0.0-0.8) K/uL Eos # (0.0-0.7) K/uL Baso # (0.0-0.2) K/uL Neutrophils % (Manual) (50-75) % Band Neutrophils % (0-2) % Lymphocytes % (Manual) (20-40) % Monocytes % (Manual) (0-10) % Hypersegmented Polys Smudge Cells Platelet Estimate (NORMAL) Large Platelets Polychromasia Poikilocytosis (manual Anisocytosis (manual) Microcytosis (manual) Retic Count (0.5-1.5) % PT (9.7-12.2) SECONDS INR APTT (21-34) SECONDS Sodium (132-148) mmol/L Potassium (3.6-5.2) mmol/L Chloride (98-107) mmol/L Carbon Dioxide (22-30) mmol/L Anion Gap (10-20) BUN (9-20) mg/dL Creatinine (0.8-1.5) MG/DL Est GFR ( Amer) Est GFR (Non-Af Amer) POC Glucose (mg/dL) 320 H (65-110) mg/dL Random Glucose (75-110) mg/dL Calcium (8.6-10.4) mg/dl Phosphorus (2.5-4.5) mg/dL Magnesium (1.6-2.3) mg/dL Iron (49-181) ug/dL TIBC (250-450) ug/dL % Saturation (20-55) Total Bilirubin (0.2-1.3) mg/dL AST (17-59) U/L ALT (21-72) U/L Alkaline Phosphatase (38-126) U/L Total Protein (6.3-8.3) g/dL Albumin (3.5-5.0) g/dL Globulin (2.2-3.9) gm/dL Albumin/Globulin Ratio (1.0-2.1) Vitamin B12 (239-931) pg/mL Fluid Source Fluid Appearance (CLEAR) Fluid pH Fluid WBC (0.0-300.0) /mm3 Fluid RBC (0.0-0.0) /mm3 Fluid Tot Cell Count (0-0) Fluid Neutrophils (0-0) % Fluid Lymphocytes (0-0) % Fld Monocyte/Macrophag Fluid Comment Hep Bs Antigen (NEGATIVE) Hep B Core IgM Ab (NEGATIVE) Hepatitis C Antibody (NEGATIVE) HIV 1&2 Antibody Screen (NEGATIVE) Ur L.pneumophila Ag (NEGATIVE) Blood Type O POSITIVE Antibody Screen Negative Laboratory Results - last 24 hr 11/02/16 11/03/16 11/03/16 08:49 08:04 08:05 WBC RBC Hgb Hct MCV MCH MCHC RDW Plt Count MPV Neut % (Auto) Lymph % (Auto) Victoria % (Auto) Eos % (Auto) Baso % (Auto) Neut # Lymph # Victoria # Eos # Baso # Neutrophils % (Manual) Band Neutrophils % Lymphocytes % (Manual) Monocytes % (Manual) Hypersegmented Polys Smudge Cells Platelet Estimate Large Platelets Polychromasia Poikilocytosis (manual Anisocytosis (manual) Microcytosis (manual) Retic Count PT 15.2 H INR 1.3 APTT 32 Sodium Potassium Chloride Carbon Dioxide Anion Gap BUN Creatinine Est GFR ( Amer) Est GFR (Non-Af Amer) POC Glucose (mg/dL) 320 H Random Glucose Calcium Phosphorus Magnesium Iron TIBC % Saturation Total Bilirubin AST ALT Alkaline Phosphatase Total Protein Albumin Globulin Albumin/Globulin Ratio Vitamin B12 Fluid Source Fluid Appearance Fluid pH Fluid WBC Fluid RBC Fluid Tot Cell Count Fluid Neutrophils Fluid Lymphocytes Fld Monocyte/Macrophag Fluid Comment Hep Bs Antigen Hep B Core IgM Ab Hepatitis C Antibody HIV 1&2 Antibody Screen Ur L.pneumophila Ag Blood Type O POSITIVE Antibody Screen Negative 11/03/16 11/03/16 11/03/16 08:49 15:06 15:06 WBC RBC Hgb Hct MCV MCH MCHC RDW Plt Count MPV Neut % (Auto) Lymph % (Auto) Victoria % (Auto) Eos % (Auto) Baso % (Auto) Neut # Lymph # Victoria # Eos # Baso # Neutrophils % (Manual) Band Neutrophils % Lymphocytes % (Manual) Monocytes % (Manual) Hypersegmented Polys Smudge Cells Platelet Estimate Large Platelets Polychromasia Poikilocytosis (manual Anisocytosis (manual) Microcytosis (manual) Retic Count PT INR APTT Sodium Potassium Chloride Carbon Dioxide Anion Gap BUN Creatinine Est GFR ( Amer) Est GFR (Non-Af Amer) POC Glucose (mg/dL) Random Glucose Calcium Phosphorus Magnesium Iron TIBC % Saturation Total Bilirubin AST ALT Alkaline Phosphatase Total Protein Albumin Globulin Albumin/Globulin Ratio Vitamin B12 Fluid Source Pleural Fluid Appearance Turbid Fluid pH 6.0 Fluid WBC 397973.0 H Fluid RBC 7860.0 H Fluid Tot Cell Count 100 H Fluid Neutrophils 95.0 H Fluid Lymphocytes 5.0 H Fld Monocyte/Macrophag TEST NOT PERFORMED Fluid Comment Hep Bs Antigen Hep B Core IgM Ab Hepatitis C Antibody HIV 1&2 Antibody Screen Ur L.pneumophila Ag Negative Blood Type Antibody Screen 11/03/16 11/03/16 11/03/16 16:31 17:05 17:05 WBC 8.3 D RBC 3.44 L Hgb 9.6 L Hct 29.6 L MCV 86.1 MCH 27.9 MCHC 32.4 L RDW 14.4 Plt Count 277 MPV 9.3 Neut % (Auto) 84.9 H Lymph % (Auto) 6.2 L Victoria % (Auto) 8.5 Eos % (Auto) 0.1 Baso % (Auto) 0.3 Neut # 7.0 Lymph # 0.5 L Victoria # 0.7 Eos # 0.0 Baso # 0.0 Neutrophils % (Manual) 79 H Band Neutrophils % 5 H Lymphocytes % (Manual) 7 L Monocytes % (Manual) 9 Hypersegmented Polys Present Smudge Cells Present Platelet Estimate Normal Large Platelets Present Polychromasia Slight Poikilocytosis (manual Slight Anisocytosis (manual) Slight Microcytosis (manual) Slight Retic Count PT INR APTT Sodium 132 Potassium 4.3 Chloride 98 Carbon Dioxide 21 L Anion Gap 17 BUN 11 Creatinine 0.6 L Est GFR ( Amer) > 60 Est GFR (Non-Af Amer) > 60 POC Glucose (mg/dL) 397 H Random Glucose 371 H Calcium 7.9 L Phosphorus 4.7 H Magnesium 1.8 Iron TIBC % Saturation Total Bilirubin 1.1 AST 24 ALT 25 Alkaline Phosphatase 138 H D Total Protein 6.7 Albumin 2.7 L Globulin 4.0 H Albumin/Globulin Ratio 0.7 L Vitamin B12 Fluid Source Fluid Appearance Fluid pH Fluid WBC Fluid RBC Fluid Tot Cell Count Fluid Neutrophils Fluid Lymphocytes Fld Monocyte/Macrophag Fluid Comment Hep Bs Antigen Hep B Core IgM Ab Hepatitis C Antibody HIV 1&2 Antibody Screen Ur L.pneumophila Ag Blood Type Antibody Screen 11/03/16 11/04/16 11/04/16 21:00 06:26 06:26 WBC RBC Hgb Hct MCV MCH MCHC RDW Plt Count MPV Neut % (Auto) Lymph % (Auto) Victoria % (Auto) Eos % (Auto) Baso % (Auto) Neut # Lymph # Victoria # Eos # Baso # Neutrophils % (Manual) Band Neutrophils % Lymphocytes % (Manual) Monocytes % (Manual) Hypersegmented Polys Smudge Cells Platelet Estimate Large Platelets Polychromasia Poikilocytosis (manual Anisocytosis (manual) Microcytosis (manual) Retic Count PT INR APTT Sodium 129 L Potassium 3.9 Chloride 93 L Carbon Dioxide 24 Anion Gap 16 BUN 11 Creatinine 0.5 L Est GFR ( Amer) > 60 Est GFR (Non-Af Amer) > 60 POC Glucose (mg/dL) 373 H Random Glucose 252 H Calcium 7.3 L Phosphorus 3.5 Magnesium 1.7 Iron TIBC % Saturation Total Bilirubin 0.9 AST 27 ALT 18 L D Alkaline Phosphatase 114 Total Protein 6.3 Albumin 2.6 L Globulin 3.7 Albumin/Globulin Ratio 0.7 L Vitamin B12 684 Fluid Source Fluid Appearance Fluid pH Fluid WBC Fluid RBC Fluid Tot Cell Count Fluid Neutrophils Fluid Lymphocytes Fld Monocyte/Macrophag Fluid Comment Hep Bs Antigen Negative Hep B Core IgM Ab Hepatitis C Antibody HIV 1&2 Antibody Screen Negative Ur L.pneumophila Ag Blood Type Antibody Screen 11/04/16 11/04/16 11/04/16 06:26 06:26 06:28 WBC 7.6 RBC 3.24 L Hgb 9.1 L Hct 27.8 L MCV 85.9 MCH 28.1 MCHC 32.7 L RDW 14.1 Plt Count 274 MPV 9.7 Neut % (Auto) 73.8 Lymph % (Auto) 13.7 L Victoria % (Auto) 12.0 H Eos % (Auto) 0.3 Baso % (Auto) 0.2 Neut # 5.6 Lymph # 1.0 Victoria # 0.9 H Eos # 0.0 Baso # 0.0 Neutrophils % (Manual) Band Neutrophils % Lymphocytes % (Manual) Monocytes % (Manual) Hypersegmented Polys Smudge Cells Platelet Estimate Large Platelets Polychromasia Poikilocytosis (manual Anisocytosis (manual) Microcytosis (manual) Retic Count PT INR APTT Sodium Potassium Chloride Carbon Dioxide Anion Gap BUN Creatinine Est GFR ( Amer) Est GFR (Non-Af Amer) POC Glucose (mg/dL) Random Glucose Calcium Phosphorus Magnesium Iron 36 L TIBC 156 L % Saturation 23 Total Bilirubin AST ALT Alkaline Phosphatase Total Protein Albumin Globulin Albumin/Globulin Ratio Vitamin B12 Fluid Source Fluid Appearance Fluid pH Fluid WBC Fluid RBC Fluid Tot Cell Count Fluid Neutrophils Fluid Lymphocytes Fld Monocyte/Macrophag Fluid Comment Hep Bs Antigen Hep B Core IgM Ab Negative Hepatitis C Antibody Negative HIV 1&2 Antibody Screen Ur L.pneumophila Ag Blood Type Antibody Screen 11/04/16 11/04/16 07:31 07:48 WBC RBC Hgb Hct MCV MCH MCHC RDW Plt Count MPV Neut % (Auto) Lymph % (Auto) Victoria % (Auto) Eos % (Auto) Baso % (Auto) Neut # Lymph # Victoria # Eos # Baso # Neutrophils % (Manual) Band Neutrophils % Lymphocytes % (Manual) Monocytes % (Manual) Hypersegmented Polys Smudge Cells Platelet Estimate Large Platelets Polychromasia Poikilocytosis (manual Anisocytosis (manual) Microcytosis (manual) Retic Count 3.0 H PT INR APTT Sodium Potassium Chloride Carbon Dioxide Anion Gap BUN Creatinine Est GFR ( Amer) Est GFR (Non-Af Amer) POC Glucose (mg/dL) 316 H Random Glucose Calcium Phosphorus Magnesium Iron TIBC % Saturation Total Bilirubin AST ALT Alkaline Phosphatase Total Protein Albumin Globulin Albumin/Globulin Ratio Vitamin B12 Fluid Source Fluid Appearance Fluid pH Fluid WBC Fluid RBC Fluid Tot Cell Count Fluid Neutrophils Fluid Lymphocytes Fld Monocyte/Macrophag Fluid Comment Hep Bs Antigen Hep B Core IgM Ab Hepatitis C Antibody HIV 1&2 Antibody Screen Ur L.pneumophila Ag Blood Type Antibody Screen Fingerstick Blood Sugar Results: 373 Critical Care Progress Note - Nutrition Nutrition: Nutrition Category Date Time Status Consistent Carbohydrate [DIET] Diets 11/03/16 Dinner Active Assessment/Plan - Assessment and Plan (Free Text) Assessment: 40M with PMHx of HTN, DM with a recent admission for pneumonia presents to the ED with SOB with a right sided pleural effusion on CT. Plan: (1) Empyema * CT surgery (Dr. Villagomez) on board * Infectious disease (Dr. East) on board * Hx of influenza (10/02/16) * Primaxin 500mg IV Q 6hout (active since 11/02/16) * Telavancin 750mg IV Q24 hours (active since 11/02/16) * Morphine SPOOL TENDER, Percocet 2 tab PO Q6H SHANNON * pending fluid studies * Chest Xray (11/03/16): history of right thoracotomy-no gross resection of a rib appreciated. Extensive opacities overlying the mid right hemithorax. No pneumothorax seen. No mediastinal shift noed. Right pleural parenchymal opacity consistent w residual right loculated pleural fluid and probably pulmonary coalsecent interstitial edema. * Chest CT (11/02/16): No CT evidence for acute pulmonary embolism. Large right pleural effusion with compressive atelectasis in the lower love. Superimposed pneumonia cannot be excluded. Follow-up advised. * Operative note: VATS coverted to thoractomy, parietal pleurectomy, decortication, wedge resection of right lower love. Evacuation of empyema and fibrous exudate (given PRBC during OR)-->2 chest tubes * pending GC/Quantiferon * Aeronic, anaerobic, Blood culture, fungus culture, AFB, gram stain, mycobacterium, tissue culture collected * Echo (11/02/16): EF: 65% (official report available in the EMR) * Chest tube #1 ouput: 350cc/24 CT#2 output:300cc/24. (2) Pleural effusion on right (3) Pneumonia * Primaxin 500mg IVQ 6hour (active since 11/02/16) * Telavancin 750mg IV Q24 hours (active since 11/02/16) * Infectious disease (Dr. East) on board * Negative legionella (4) Diabetes * Levemir 30 units subqHS * Lisinopril 20mg PO dailu * Metoprolol tarate 50mg PO Q 12hour * Novolog sliding scale subq * Accuchecks q6 hours * Uncontrolled; a1c: 11.6 (10/16/16) * T Chol: 208 LDL:106 HDL:38 (5) Hypertension * Lisinopril 20mg PO daily * Metoprolol 50mg PO Q 12hours (6) Anemia * Negative stool occult blood * Ordered for iron- low, TIBC - low , %iron saturation, folate- wnl, B12- wnl, reticulocyte count- high 3.0 * Hep and HIV negative * Note: patient is post OR POD#1 (5) Prophylactic care * Pepcid 20mg PO daily for GI ppx * Colace 100mg PO bid DW Simba Ch DO, PGY-1 <Daisha Desouza - Last Filed: 11/04/16 14:13> CCU Objective - Vital Signs / Intake & Output Intake and Output (Last 8hrs): Intake & Output 11/03/16 11/04/16 11/04/16 22:59 06:59 14:59 Intake Total 1890 750 421.5 Output Total 2370 795 465 Balance -480 -45 -43.5 Weight 260 lb Intake: IV 1000 Intake, IV Amount 550 500 251.5 Left Hand 550 500 100 Left Upper Arm Y port 1.5 Left Upper arm 150 Oral 340 250 170 Output: Chest Tube Drainage 330 320 Right Mid-Axillary Chest 190 160 Right Mid-Axillary Chest 140 160 #2 Urine 2040 475 465 2-way Urethral 740 475 465 - Medications Active Medications: Active Medications Generic Name Dose Route Start Last Admin Trade Name Freq PRN Reason Stop Dose Admin Docusate Sodium 100 mg 11/02/16 18:00 11/04/16 09:08 Colace PO 100 mg BID SHANNON Administration Famotidine 20 mg 11/02/16 10:00 11/04/16 09:09 Pepcid PO 20 mg DAILY SHANNON Administration Hydromorphone/Sodium Chloride 3.6 mg 11/04/16 08:26 11/04/16 09:18 Dilaudid Line Service Person IV 3.6 mg Q4H PRN Administration Pain, Mild (1-3) Protocol Imipenem/Cilastatin Sodium 500 100 mls @ 100 mls/hr 11/02/16 18:00 11/04/16 13:24 mg/ Sodium Chloride IVPB 100 mls/hr Q6H SHANNON Administration Telavancin 750 mg/ Sodium 100 mls @ 100 mls/hr 11/02/16 19:00 11/03/16 18:01 Chloride IVPB 100 mls/hr Q24H SHANNON Administration Insulin Aspart 0 unit 11/02/16 07:30 11/04/16 13:24 Novolog SC 12 unit ACHS SHANNON Administration Protocol Insulin Detemir 30 unit 11/04/16 09:03 Levemir SC HS SHANNON Lisinopril 20 mg 11/02/16 10:00 11/04/16 09:09 Zestril PO 20 mg DAILY SHANNON Administration Metoprolol Tartrate 50 mg 11/03/16 08:45 11/04/16 08:30 Lopressor PO 50 mg Q12H SHANNON Administration Oxycodone/Acetaminophen 2 tab 11/04/16 08:45 11/04/16 09:08 Percocet 5/325 Mg Tab PO 11/10/16 08:46 2 tab Q6H SHANNON Administration Saccharomyces Boulardii 250 mg 11/04/16 10:00 11/04/16 09:08 Florastor PO 250 mg BID SHANNON Administration - Patient Studies Lab Studies: Microbiology Studies 11/03/16 Unknown Fungal Culture - Preliminary Lung Rll 11/03/16 Unknown Fungal Culture - Preliminary Pleural Fluid 11/02/16 Unknown Body Fluid Culture - Preliminary Pleural Fluid NO GROWTH AFTER 24 HOURS 11/03/16 Unknown Gram Stain - Final Lung Tissue Culture - Preliminary No growth. 11/03/16 Unknown Gram Stain - Final Pleural Fluid 11/02/16 02:31 MRSA Culture (Admit) - Final Nose MRSA NOT DETECTED Lab Studies 11/04/16 11/04/16 11/04/16 Range/Units 12:45 07:48 07:31 WBC (4.8-10.8) K/uL RBC (4.40-5.90) Mil/uL Hgb (12.0-18.0) g/dL Hct (35.0-51.0) % MCV (80.0-94.0) fL MCH (27.0-31.0) pg MCHC (33.0-37.0) g/dL RDW (11.5-14.5) % Plt Count (130-400) K/uL MPV (7.2-11.7) fL Neut % (Auto) (50.0-75.0) % Lymph % (Auto) (20.0-40.0) % Victoria % (Auto) (0.0-10.0) % Eos % (Auto) (0.0-4.0) % Baso % (Auto) (0.0-2.0) % Neut # (1.8-7.0) K/uL Lymph # (1.0-4.3) K/uL Victoria # (0.0-0.8) K/uL Eos # (0.0-0.7) K/uL Baso # (0.0-0.2) K/uL Neutrophils % (Manual) (50-75) % Band Neutrophils % (0-2) % Lymphocytes % (Manual) (20-40) % Monocytes % (Manual) (0-10) % Hypersegmented Polys Smudge Cells Platelet Estimate (NORMAL) Large Platelets Polychromasia Poikilocytosis (manual Anisocytosis (manual) Microcytosis (manual) Retic Count 3.0 H (0.5-1.5) % Sodium (132-148) mmol/L Potassium (3.6-5.2) mmol/L Chloride (98-107) mmol/L Carbon Dioxide (22-30) mmol/L Anion Gap (10-20) BUN (9-20) mg/dL Creatinine (0.8-1.5) MG/DL Est GFR ( Amer) Est GFR (Non-Af Amer) POC Glucose (mg/dL) 383 H 316 H (65-110) mg/dL Random Glucose (75-110) mg/dL Calcium (8.6-10.4) mg/dl Phosphorus (2.5-4.5) mg/dL Magnesium (1.6-2.3) mg/dL Iron (49-181) ug/dL TIBC (250-450) ug/dL % Saturation (20-55) Total Bilirubin (0.2-1.3) mg/dL AST (17-59) U/L ALT (21-72) U/L Alkaline Phosphatase (38-126) U/L Total Protein (6.3-8.3) g/dL Albumin (3.5-5.0) g/dL Globulin (2.2-3.9) gm/dL Albumin/Globulin Ratio (1.0-2.1) Vitamin B12 (239-931) pg/mL Folate ng/mL Fluid Source Fluid Appearance (CLEAR) Fluid pH Fluid WBC (0.0-300.0) /mm3 Fluid RBC (0.0-0.0) /mm3 Fluid Tot Cell Count (0-0) Fluid Neutrophils (0-0) % Fluid Lymphocytes (0-0) % Fld Monocyte/Macrophag Fluid Comment TOMI 6 Profile (NEGATIVE) Hep Bs Antigen (NEGATIVE) Hep B Core IgM Ab (NEGATIVE) Hepatitis C Antibody (NEGATIVE) HIV 1&2 Antibody Screen (NEGATIVE) H.influenzae Type B Ag (NEGATIVE) Mycoplasma pneumon IgM (NEGATIVE) N.meningitidis ACY/W135 (NEGATIVE) N.meningi B/E.coli K1 Ag (NEGATIVE) Group B Strep Antigen (NEGATIVE) S. pneumoniae Antigen (NEGATIVE) Blood Type Antibody Screen 11/04/16 11/04/16 11/04/16 Range/Units 06:28 06:26 06:26 WBC 7.6 (4.8-10.8) K/uL RBC 3.24 L (4.40-5.90) Mil/uL Hgb 9.1 L (12.0-18.0) g/dL Hct 27.8 L (35.0-51.0) % MCV 85.9 (80.0-94.0) fL MCH 28.1 (27.0-31.0) pg MCHC 32.7 L (33.0-37.0) g/dL RDW 14.1 (11.5-14.5) % Plt Count 274 (130-400) K/uL MPV 9.7 (7.2-11.7) fL Neut % (Auto) 73.8 (50.0-75.0) % Lymph % (Auto) 13.7 L (20.0-40.0) % Victoria % (Auto) 12.0 H (0.0-10.0) % Eos % (Auto) 0.3 (0.0-4.0) % Baso % (Auto) 0.2 (0.0-2.0) % Neut # 5.6 (1.8-7.0) K/uL Lymph # 1.0 (1.0-4.3) K/uL Victoria # 0.9 H (0.0-0.8) K/uL Eos # 0.0 (0.0-0.7) K/uL Baso # 0.0 (0.0-0.2) K/uL Neutrophils % (Manual) (50-75) % Band Neutrophils % (0-2) % Lymphocytes % (Manual) (20-40) % Monocytes % (Manual) (0-10) % Hypersegmented Polys Smudge Cells Platelet Estimate (NORMAL) Large Platelets Polychromasia Poikilocytosis (manual Anisocytosis (manual) Microcytosis (manual) Retic Count (0.5-1.5) % Sodium (132-148) mmol/L Potassium (3.6-5.2) mmol/L Chloride (98-107) mmol/L Carbon Dioxide (22-30) mmol/L Anion Gap (10-20) BUN (9-20) mg/dL Creatinine (0.8-1.5) MG/DL Est GFR ( Amer) Est GFR (Non-Af Amer) POC Glucose (mg/dL) (65-110) mg/dL Random Glucose (75-110) mg/dL Calcium (8.6-10.4) mg/dl Phosphorus (2.5-4.5) mg/dL Magnesium (1.6-2.3) mg/dL Iron 36 L (49-181) ug/dL TIBC 156 L (250-450) ug/dL % Saturation 23 (20-55) Total Bilirubin (0.2-1.3) mg/dL AST (17-59) U/L ALT (21-72) U/L Alkaline Phosphatase (38-126) U/L Total Protein (6.3-8.3) g/dL Albumin (3.5-5.0) g/dL Globulin (2.2-3.9) gm/dL Albumin/Globulin Ratio (1.0-2.1) Vitamin B12 (239-931) pg/mL Folate ng/mL Fluid Source Fluid Appearance (CLEAR) Fluid pH Fluid WBC (0.0-300.0) /mm3 Fluid RBC (0.0-0.0) /mm3 Fluid Tot Cell Count (0-0) Fluid Neutrophils (0-0) % Fluid Lymphocytes (0-0) % Fld Monocyte/Macrophag Fluid Comment TOMI 6 Profile (NEGATIVE) Hep Bs Antigen (NEGATIVE) Hep B Core IgM Ab Negative (NEGATIVE) Hepatitis C Antibody Negative (NEGATIVE) HIV 1&2 Antibody Screen (NEGATIVE) H.influenzae Type B Ag (NEGATIVE) Mycoplasma pneumon IgM (NEGATIVE) N.meningitidis ACY/W135 (NEGATIVE) N.meningi B/E.coli K1 Ag (NEGATIVE) Group B Strep Antigen (NEGATIVE) S. pneumoniae Antigen (NEGATIVE) Blood Type Antibody Screen 11/04/16 11/04/16 11/04/16 Range/Units 06:26 06:26 06:26 WBC (4.8-10.8) K/uL RBC (4.40-5.90) Mil/uL Hgb (12.0-18.0) g/dL Hct (35.0-51.0) % MCV (80.0-94.0) fL MCH (27.0-31.0) pg MCHC (33.0-37.0) g/dL RDW (11.5-14.5) % Plt Count (130-400) K/uL MPV (7.2-11.7) fL Neut % (Auto) (50.0-75.0) % Lymph % (Auto) (20.0-40.0) % Victoria % (Auto) (0.0-10.0) % Eos % (Auto) (0.0-4.0) % Baso % (Auto) (0.0-2.0) % Neut # (1.8-7.0) K/uL Lymph # (1.0-4.3) K/uL Victoria # (0.0-0.8) K/uL Eos # (0.0-0.7) K/uL Baso # (0.0-0.2) K/uL Neutrophils % (Manual) (50-75) % Band Neutrophils % (0-2) % Lymphocytes % (Manual) (20-40) % Monocytes % (Manual) (0-10) % Hypersegmented Polys Smudge Cells Platelet Estimate (NORMAL) Large Platelets Polychromasia Poikilocytosis (manual Anisocytosis (manual) Microcytosis (manual) Retic Count (0.5-1.5) % Sodium 129 L (132-148) mmol/L Potassium 3.9 (3.6-5.2) mmol/L Chloride 93 L (98-107) mmol/L Carbon Dioxide 24 (22-30) mmol/L Anion Gap 16 (10-20) BUN 11 (9-20) mg/dL Creatinine 0.5 L (0.8-1.5) MG/DL Est GFR ( Amer) > 60 Est GFR (Non-Af Amer) > 60 POC Glucose (mg/dL) (65-110) mg/dL Random Glucose 252 H (75-110) mg/dL Calcium 7.3 L (8.6-10.4) mg/dl Phosphorus 3.5 (2.5-4.5) mg/dL Magnesium 1.7 (1.6-2.3) mg/dL Iron (49-181) ug/dL TIBC (250-450) ug/dL % Saturation (20-55) Total Bilirubin 0.9 (0.2-1.3) mg/dL AST 27 (17-59) U/L ALT 18 L D (21-72) U/L Alkaline Phosphatase 114 (38-126) U/L Total Protein 6.3 (6.3-8.3) g/dL Albumin 2.6 L (3.5-5.0) g/dL Globulin 3.7 (2.2-3.9) gm/dL Albumin/Globulin Ratio 0.7 L (1.0-2.1) Vitamin B12 684 (239-931) pg/mL Folate 13.6 ng/mL Fluid Source Fluid Appearance (CLEAR) Fluid pH Fluid WBC (0.0-300.0) /mm3 Fluid RBC (0.0-0.0) /mm3 Fluid Tot Cell Count (0-0) Fluid Neutrophils (0-0) % Fluid Lymphocytes (0-0) % Fld Monocyte/Macrophag Fluid Comment TOMI 6 Profile (NEGATIVE) Hep Bs Antigen Negative (NEGATIVE) Hep B Core IgM Ab (NEGATIVE) Hepatitis C Antibody (NEGATIVE) HIV 1&2 Antibody Screen Negative (NEGATIVE) H.influenzae Type B Ag (NEGATIVE) Mycoplasma pneumon IgM Negative (NEGATIVE) N.meningitidis ACY/W135 (NEGATIVE) N.meningi B/E.coli K1 Ag (NEGATIVE) Group B Strep Antigen (NEGATIVE) S. pneumoniae Antigen (NEGATIVE) Blood Type Antibody Screen 11/03/16 11/03/16 11/03/16 Range/Units 21:00 17:05 17:05 WBC 8.3 D (4.8-10.8) K/uL RBC 3.44 L (4.40-5.90) Mil/uL Hgb 9.6 L (12.0-18.0) g/dL Hct 29.6 L (35.0-51.0) % MCV 86.1 (80.0-94.0) fL MCH 27.9 (27.0-31.0) pg MCHC 32.4 L (33.0-37.0) g/dL RDW 14.4 (11.5-14.5) % Plt Count 277 (130-400) K/uL MPV 9.3 (7.2-11.7) fL Neut % (Auto) 84.9 H (50.0-75.0) % Lymph % (Auto) 6.2 L (20.0-40.0) % Victoria % (Auto) 8.5 (0.0-10.0) % Eos % (Auto) 0.1 (0.0-4.0) % Baso % (Auto) 0.3 (0.0-2.0) % Neut # 7.0 (1.8-7.0) K/uL Lymph # 0.5 L (1.0-4.3) K/uL Victoria # 0.7 (0.0-0.8) K/uL Eos # 0.0 (0.0-0.7) K/uL Baso # 0.0 (0.0-0.2) K/uL Neutrophils % (Manual) 79 H (50-75) % Band Neutrophils % 5 H (0-2) % Lymphocytes % (Manual) 7 L (20-40) % Monocytes % (Manual) 9 (0-10) % Hypersegmented Polys Present Smudge Cells Present Platelet Estimate Normal (NORMAL) Large Platelets Present Polychromasia Slight Poikilocytosis (manual Slight Anisocytosis (manual) Slight Microcytosis (manual) Slight Retic Count (0.5-1.5) % Sodium 132 (132-148) mmol/L Potassium 4.3 (3.6-5.2) mmol/L Chloride 98 (98-107) mmol/L Carbon Dioxide 21 L (22-30) mmol/L Anion Gap 17 (10-20) BUN 11 (9-20) mg/dL Creatinine 0.6 L (0.8-1.5) MG/DL Est GFR ( Amer) > 60 Est GFR (Non-Af Amer) > 60 POC Glucose (mg/dL) 373 H (65-110) mg/dL Random Glucose 371 H (75-110) mg/dL Calcium 7.9 L (8.6-10.4) mg/dl Phosphorus 4.7 H (2.5-4.5) mg/dL Magnesium 1.8 (1.6-2.3) mg/dL Iron (49-181) ug/dL TIBC (250-450) ug/dL % Saturation (20-55) Total Bilirubin 1.1 (0.2-1.3) mg/dL AST 24 (17-59) U/L ALT 25 (21-72) U/L Alkaline Phosphatase 138 H D (38-126) U/L Total Protein 6.7 (6.3-8.3) g/dL Albumin 2.7 L (3.5-5.0) g/dL Globulin 4.0 H (2.2-3.9) gm/dL Albumin/Globulin Ratio 0.7 L (1.0-2.1) Vitamin B12 (239-931) pg/mL Folate ng/mL Fluid Source Fluid Appearance (CLEAR) Fluid pH Fluid WBC (0.0-300.0) /mm3 Fluid RBC (0.0-0.0) /mm3 Fluid Tot Cell Count (0-0) Fluid Neutrophils (0-0) % Fluid Lymphocytes (0-0) % Fld Monocyte/Macrophag Fluid Comment TOMI 6 Profile (NEGATIVE) Hep Bs Antigen (NEGATIVE) Hep B Core IgM Ab (NEGATIVE) Hepatitis C Antibody (NEGATIVE) HIV 1&2 Antibody Screen (NEGATIVE) H.influenzae Type B Ag (NEGATIVE) Mycoplasma pneumon IgM (NEGATIVE) N.meningitidis ACY/W135 (NEGATIVE) N.meningi B/E.coli K1 Ag (NEGATIVE) Group B Strep Antigen (NEGATIVE) S. pneumoniae Antigen (NEGATIVE) Blood Type Antibody Screen 11/03/16 11/03/16 11/03/16 Range/Units 16:31 15:06 15:06 WBC (4.8-10.8) K/uL RBC (4.40-5.90) Mil/uL Hgb (12.0-18.0) g/dL Hct (35.0-51.0) % MCV (80.0-94.0) fL MCH (27.0-31.0) pg MCHC (33.0-37.0) g/dL RDW (11.5-14.5) % Plt Count (130-400) K/uL MPV (7.2-11.7) fL Neut % (Auto) (50.0-75.0) % Lymph % (Auto) (20.0-40.0) % Victoria % (Auto) (0.0-10.0) % Eos % (Auto) (0.0-4.0) % Baso % (Auto) (0.0-2.0) % Neut # (1.8-7.0) K/uL Lymph # (1.0-4.3) K/uL Victoria # (0.0-0.8) K/uL Eos # (0.0-0.7) K/uL Baso # (0.0-0.2) K/uL Neutrophils % (Manual) (50-75) % Band Neutrophils % (0-2) % Lymphocytes % (Manual) (20-40) % Monocytes % (Manual) (0-10) % Hypersegmented Polys Smudge Cells Platelet Estimate (NORMAL) Large Platelets Polychromasia Poikilocytosis (manual Anisocytosis (manual) Microcytosis (manual) Retic Count (0.5-1.5) % Sodium (132-148) mmol/L Potassium (3.6-5.2) mmol/L Chloride (98-107) mmol/L Carbon Dioxide (22-30) mmol/L Anion Gap (10-20) BUN (9-20) mg/dL Creatinine (0.8-1.5) MG/DL Est GFR ( Amer) Est GFR (Non-Af Amer) POC Glucose (mg/dL) 397 H (65-110) mg/dL Random Glucose (75-110) mg/dL Calcium (8.6-10.4) mg/dl Phosphorus (2.5-4.5) mg/dL Magnesium (1.6-2.3) mg/dL Iron (49-181) ug/dL TIBC (250-450) ug/dL % Saturation (20-55) Total Bilirubin (0.2-1.3) mg/dL AST (17-59) U/L ALT (21-72) U/L Alkaline Phosphatase (38-126) U/L Total Protein (6.3-8.3) g/dL Albumin (3.5-5.0) g/dL Globulin (2.2-3.9) gm/dL Albumin/Globulin Ratio (1.0-2.1) Vitamin B12 (239-931) pg/mL Folate ng/mL Fluid Source Pleural Fluid Appearance Turbid (CLEAR) Fluid pH 6.0 Fluid WBC 296830.0 H (0.0-300.0) /mm3 Fluid RBC 7860.0 H (0.0-0.0) /mm3 Fluid Tot Cell Count 100 H (0-0) Fluid Neutrophils 95.0 H (0-0) % Fluid Lymphocytes 5.0 H (0-0) % Fld Monocyte/Macrophag TEST NOT PERFORMED Fluid Comment TOMI 6 Profile (NEGATIVE) Hep Bs Antigen (NEGATIVE) Hep B Core IgM Ab (NEGATIVE) Hepatitis C Antibody (NEGATIVE) HIV 1&2 Antibody Screen (NEGATIVE) H.influenzae Type B Ag (NEGATIVE) Mycoplasma pneumon IgM (NEGATIVE) N.meningitidis ACY/W135 (NEGATIVE) N.meningi B/E.coli K1 Ag (NEGATIVE) Group B Strep Antigen (NEGATIVE) S. pneumoniae Antigen (NEGATIVE) Blood Type Antibody Screen 11/02/16 11/02/16 11/02/16 Range/Units 10:30 08:49 06:00 WBC (4.8-10.8) K/uL RBC (4.40-5.90) Mil/uL Hgb (12.0-18.0) g/dL Hct (35.0-51.0) % MCV (80.0-94.0) fL MCH (27.0-31.0) pg MCHC (33.0-37.0) g/dL RDW (11.5-14.5) % Plt Count (130-400) K/uL MPV (7.2-11.7) fL Neut % (Auto) (50.0-75.0) % Lymph % (Auto) (20.0-40.0) % Victoria % (Auto) (0.0-10.0) % Eos % (Auto) (0.0-4.0) % Baso % (Auto) (0.0-2.0) % Neut # (1.8-7.0) K/uL Lymph # (1.0-4.3) K/uL Victoria # (0.0-0.8) K/uL Eos # (0.0-0.7) K/uL Baso # (0.0-0.2) K/uL Neutrophils % (Manual) (50-75) % Band Neutrophils % (0-2) % Lymphocytes % (Manual) (20-40) % Monocytes % (Manual) (0-10) % Hypersegmented Polys Smudge Cells Platelet Estimate (NORMAL) Large Platelets Polychromasia Poikilocytosis (manual Anisocytosis (manual) Microcytosis (manual) Retic Count (0.5-1.5) % Sodium (132-148) mmol/L Potassium (3.6-5.2) mmol/L Chloride (98-107) mmol/L Carbon Dioxide (22-30) mmol/L Anion Gap (10-20) BUN (9-20) mg/dL Creatinine (0.8-1.5) MG/DL Est GFR ( Amer) Est GFR (Non-Af Amer) POC Glucose (mg/dL) (65-110) mg/dL Random Glucose (75-110) mg/dL Calcium (8.6-10.4) mg/dl Phosphorus (2.5-4.5) mg/dL Magnesium (1.6-2.3) mg/dL Iron (49-181) ug/dL TIBC (250-450) ug/dL % Saturation (20-55) Total Bilirubin (0.2-1.3) mg/dL AST (17-59) U/L ALT (21-72) U/L Alkaline Phosphatase (38-126) U/L Total Protein (6.3-8.3) g/dL Albumin (3.5-5.0) g/dL Globulin (2.2-3.9) gm/dL Albumin/Globulin Ratio (1.0-2.1) Vitamin B12 (239-931) pg/mL Folate ng/mL Fluid Source Fluid Appearance (CLEAR) Fluid pH Fluid WBC (0.0-300.0) /mm3 Fluid RBC (0.0-0.0) /mm3 Fluid Tot Cell Count (0-0) Fluid Neutrophils (0-0) % Fluid Lymphocytes (0-0) % Fld Monocyte/Macrophag Fluid Comment TOMI 6 Profile Negative (NEGATIVE) Hep Bs Antigen (NEGATIVE) Hep B Core IgM Ab (NEGATIVE) Hepatitis C Antibody (NEGATIVE) HIV 1&2 Antibody Screen (NEGATIVE) H.influenzae Type B Ag Not required (NEGATIVE) Mycoplasma pneumon IgM (NEGATIVE) N.meningitidis ACY/W135 Not required (NEGATIVE) N.meningi B/E.coli K1 Ag Not required (NEGATIVE) Group B Strep Antigen Not required (NEGATIVE) S. pneumoniae Antigen Negative (NEGATIVE) Blood Type O POSITIVE Antibody Screen Negative Laboratory Results - last 24 hr 11/02/16 11/02/16 11/02/16 06:00 08:49 10:30 WBC RBC Hgb Hct MCV MCH MCHC RDW Plt Count MPV Neut % (Auto) Lymph % (Auto) Victoria % (Auto) Eos % (Auto) Baso % (Auto) Neut # Lymph # Victoria # Eos # Baso # Neutrophils % (Manual) Band Neutrophils % Lymphocytes % (Manual) Monocytes % (Manual) Hypersegmented Polys Smudge Cells Platelet Estimate Large Platelets Polychromasia Poikilocytosis (manual Anisocytosis (manual) Microcytosis (manual) Retic Count Sodium Potassium Chloride Carbon Dioxide Anion Gap BUN Creatinine Est GFR ( Amer) Est GFR (Non-Af Amer) POC Glucose (mg/dL) Random Glucose Calcium Phosphorus Magnesium Iron TIBC % Saturation Total Bilirubin AST ALT Alkaline Phosphatase Total Protein Albumin Globulin Albumin/Globulin Ratio Vitamin B12 Folate Fluid Source Fluid Appearance Fluid pH Fluid WBC Fluid RBC Fluid Tot Cell Count Fluid Neutrophils Fluid Lymphocytes Fld Monocyte/Macrophag Fluid Comment TOMI 6 Profile Negative Hep Bs Antigen Hep B Core IgM Ab Hepatitis C Antibody HIV 1&2 Antibody Screen H.influenzae Type B Ag Not required Mycoplasma pneumon IgM N.meningitidis ACY/W135 Not required N.meningi B/E.coli K1 Ag Not required Group B Strep Antigen Not required S. pneumoniae Antigen Negative Blood Type O POSITIVE Antibody Screen Negative 11/03/16 11/03/16 11/03/16 15:06 15:06 16:31 WBC RBC Hgb Hct MCV MCH MCHC RDW Plt Count MPV Neut % (Auto) Lymph % (Auto) Victoria % (Auto) Eos % (Auto) Baso % (Auto) Neut # Lymph # Victoria # Eos # Baso # Neutrophils % (Manual) Band Neutrophils % Lymphocytes % (Manual) Monocytes % (Manual) Hypersegmented Polys Smudge Cells Platelet Estimate Large Platelets Polychromasia Poikilocytosis (manual Anisocytosis (manual) Microcytosis (manual) Retic Count Sodium Potassium Chloride Carbon Dioxide Anion Gap BUN Creatinine Est GFR ( Amer) Est GFR (Non-Af Amer) POC Glucose (mg/dL) 397 H Random Glucose Calcium Phosphorus Magnesium Iron TIBC % Saturation Total Bilirubin AST ALT Alkaline Phosphatase Total Protein Albumin Globulin Albumin/Globulin Ratio Vitamin B12 Folate Fluid Source Pleural Fluid Appearance Turbid Fluid pH 6.0 Fluid WBC 570553.0 H Fluid RBC 7860.0 H Fluid Tot Cell Count 100 H Fluid Neutrophils 95.0 H Fluid Lymphocytes 5.0 H Fld Monocyte/Macrophag TEST NOT PERFORMED Fluid Comment TOMI 6 Profile Hep Bs Antigen Hep B Core IgM Ab Hepatitis C Antibody HIV 1&2 Antibody Screen H.influenzae Type B Ag Mycoplasma pneumon IgM N.meningitidis ACY/W135 N.meningi B/E.coli K1 Ag Group B Strep Antigen S. pneumoniae Antigen Blood Type Antibody Screen 11/03/16 11/03/16 11/03/16 17:05 17:05 21:00 WBC 8.3 D RBC 3.44 L Hgb 9.6 L Hct 29.6 L MCV 86.1 MCH 27.9 MCHC 32.4 L RDW 14.4 Plt Count 277 MPV 9.3 Neut % (Auto) 84.9 H Lymph % (Auto) 6.2 L Victoria % (Auto) 8.5 Eos % (Auto) 0.1 Baso % (Auto) 0.3 Neut # 7.0 Lymph # 0.5 L Victoria # 0.7 Eos # 0.0 Baso # 0.0 Neutrophils % (Manual) 79 H Band Neutrophils % 5 H Lymphocytes % (Manual) 7 L Monocytes % (Manual) 9 Hypersegmented Polys Present Smudge Cells Present Platelet Estimate Normal Large Platelets Present Polychromasia Slight Poikilocytosis (manual Slight Anisocytosis (manual) Slight Microcytosis (manual) Slight Retic Count Sodium 132 Potassium 4.3 Chloride 98 Carbon Dioxide 21 L Anion Gap 17 BUN 11 Creatinine 0.6 L Est GFR ( Amer) > 60 Est GFR (Non-Af Amer) > 60 POC Glucose (mg/dL) 373 H Random Glucose 371 H Calcium 7.9 L Phosphorus 4.7 H Magnesium 1.8 Iron TIBC % Saturation Total Bilirubin 1.1 AST 24 ALT 25 Alkaline Phosphatase 138 H D Total Protein 6.7 Albumin 2.7 L Globulin 4.0 H Albumin/Globulin Ratio 0.7 L Vitamin B12 Folate Fluid Source Fluid Appearance Fluid pH Fluid WBC Fluid RBC Fluid Tot Cell Count Fluid Neutrophils Fluid Lymphocytes Fld Monocyte/Macrophag Fluid Comment TOMI 6 Profile Hep Bs Antigen Hep B Core IgM Ab Hepatitis C Antibody HIV 1&2 Antibody Screen H.influenzae Type B Ag Mycoplasma pneumon IgM N.meningitidis ACY/W135 N.meningi B/E.coli K1 Ag Group B Strep Antigen S. pneumoniae Antigen Blood Type Antibody Screen 11/04/16 11/04/16 11/04/16 06:26 06:26 06:26 WBC RBC Hgb Hct MCV MCH MCHC RDW Plt Count MPV Neut % (Auto) Lymph % (Auto) Victoria % (Auto) Eos % (Auto) Baso % (Auto) Neut # Lymph # Victoria # Eos # Baso # Neutrophils % (Manual) Band Neutrophils % Lymphocytes % (Manual) Monocytes % (Manual) Hypersegmented Polys Smudge Cells Platelet Estimate Large Platelets Polychromasia Poikilocytosis (manual Anisocytosis (manual) Microcytosis (manual) Retic Count Sodium 129 L Potassium 3.9 Chloride 93 L Carbon Dioxide 24 Anion Gap 16 BUN 11 Creatinine 0.5 L Est GFR ( Amer) > 60 Est GFR (Non-Af Amer) > 60 POC Glucose (mg/dL) Random Glucose 252 H Calcium 7.3 L Phosphorus 3.5 Magnesium 1.7 Iron TIBC % Saturation Total Bilirubin 0.9 AST 27 ALT 18 L D Alkaline Phosphatase 114 Total Protein 6.3 Albumin 2.6 L Globulin 3.7 Albumin/Globulin Ratio 0.7 L Vitamin B12 684 Folate 13.6 Fluid Source Fluid Appearance Fluid pH Fluid WBC Fluid RBC Fluid Tot Cell Count Fluid Neutrophils Fluid Lymphocytes Fld Monocyte/Macrophag Fluid Comment TOMI 6 Profile Hep Bs Antigen Negative Hep B Core IgM Ab Hepatitis C Antibody HIV 1&2 Antibody Screen Negative H.influenzae Type B Ag Mycoplasma pneumon IgM Negative N.meningitidis ACY/W135 N.meningi B/E.coli K1 Ag Group B Strep Antigen S. pneumoniae Antigen Blood Type Antibody Screen 11/04/16 11/04/16 11/04/16 06:26 06:26 06:28 WBC 7.6 RBC 3.24 L Hgb 9.1 L Hct 27.8 L MCV 85.9 MCH 28.1 MCHC 32.7 L RDW 14.1 Plt Count 274 MPV 9.7 Neut % (Auto) 73.8 Lymph % (Auto) 13.7 L Victoria % (Auto) 12.0 H Eos % (Auto) 0.3 Baso % (Auto) 0.2 Neut # 5.6 Lymph # 1.0 Victoria # 0.9 H Eos # 0.0 Baso # 0.0 Neutrophils % (Manual) Band Neutrophils % Lymphocytes % (Manual) Monocytes % (Manual) Hypersegmented Polys Smudge Cells Platelet Estimate Large Platelets Polychromasia Poikilocytosis (manual Anisocytosis (manual) Microcytosis (manual) Retic Count Sodium Potassium Chloride Carbon Dioxide Anion Gap BUN Creatinine Est GFR ( Amer) Est GFR (Non-Af Amer) POC Glucose (mg/dL) Random Glucose Calcium Phosphorus Magnesium Iron 36 L TIBC 156 L % Saturation 23 Total Bilirubin AST ALT Alkaline Phosphatase Total Protein Albumin Globulin Albumin/Globulin Ratio Vitamin B12 Folate Fluid Source Fluid Appearance Fluid pH Fluid WBC Fluid RBC Fluid Tot Cell Count Fluid Neutrophils Fluid Lymphocytes Fld Monocyte/Macrophag Fluid Comment TOMI 6 Profile Hep Bs Antigen Hep B Core IgM Ab Negative Hepatitis C Antibody Negative HIV 1&2 Antibody Screen H.influenzae Type B Ag Mycoplasma pneumon IgM N.meningitidis ACY/W135 N.meningi B/E.coli K1 Ag Group B Strep Antigen S. pneumoniae Antigen Blood Type Antibody Screen 11/04/16 11/04/16 11/04/16 07:31 07:48 12:45 WBC RBC Hgb Hct MCV MCH MCHC RDW Plt Count MPV Neut % (Auto) Lymph % (Auto) Victoria % (Auto) Eos % (Auto) Baso % (Auto) Neut # Lymph # Victoria # Eos # Baso # Neutrophils % (Manual) Band Neutrophils % Lymphocytes % (Manual) Monocytes % (Manual) Hypersegmented Polys Smudge Cells Platelet Estimate Large Platelets Polychromasia Poikilocytosis (manual Anisocytosis (manual) Microcytosis (manual) Retic Count 3.0 H Sodium Potassium Chloride Carbon Dioxide Anion Gap BUN Creatinine Est GFR ( Amer) Est GFR (Non-Af Amer) POC Glucose (mg/dL) 316 H 383 H Random Glucose Calcium Phosphorus Magnesium Iron TIBC % Saturation Total Bilirubin AST ALT Alkaline Phosphatase Total Protein Albumin Globulin Albumin/Globulin Ratio Vitamin B12 Folate Fluid Source Fluid Appearance Fluid pH Fluid WBC Fluid RBC Fluid Tot Cell Count Fluid Neutrophils Fluid Lymphocytes Fld Monocyte/Macrophag Fluid Comment TOMI 6 Profile Hep Bs Antigen Hep B Core IgM Ab Hepatitis C Antibody HIV 1&2 Antibody Screen H.influenzae Type B Ag Mycoplasma pneumon IgM N.meningitidis ACY/W135 N.meningi B/E.coli K1 Ag Group B Strep Antigen S. pneumoniae Antigen Blood Type Antibody Screen EKG/Cardiology Studies: Cardiology / EKG Studies 11/04/16 10:56 EKG [ELECTROCARDIOGRAM] Stat Comment: Mode Of Transportation: Reason For Exam: tachycardia Critical Care Progress Note - Nutrition Nutrition: Nutrition Category Date Time Status Consistent Carbohydrate [DIET] Diets 11/03/16 Dinner Active Attending/Attestation - Attestation I have personally seen and examined this patient.: Yes I have fully participated in the care of the patient.: Yes I have reviewed all pertinent clinical information: Yes Notes (Text): 11/04/16 14:11 Patient seen and examined in am, doing well, but has lots of pain at the CT site and when moving the left arm. Lots of drainage through CT 300/350 mL each tube serous sanguinolent fluid Adjusted pain meds to 10/625 mg of percocet q6h and pac dilaudid 0.3 mg q20mn d/c whatley
[2016-11-04 08:06] LABS: FOLATE 13.6 ng/mL
--- NOTE | 2016-11-04 08:23 | CP.PCM.PN ---
Subjective - Date & Time of Evaluation Date of Evaluation: 11/04/16 Time of Evaluation: 07:00 - Subjective Subjective: CT Surgery: Dr. Villagomez Patient seen and examined this AM. Patient is out of bed to chair. Reports mild pain along surgical incision wound. Patient reports chills, denies any other symptoms. CT #1 ouput: 350cc/24 CT#2 output:300cc/24. NAEO. Objective - Vital Signs/Intake and Output Vital Signs (last 24 hours): Temp Pulse Resp BP Pulse Ox 99.5 F 102 H 23 135/80 99 11/04/16 04:00 11/04/16 07:00 11/04/16 07:00 11/04/16 06:51 11/04/16 07:00 Intake and Output: 11/04/16 11/04/16 06:59 18:59 Intake Total 1340 50 Output Total 1189 45 Balance 151 5 - Medications Medications: Current Medications Docusate Sodium (Colace) 100 mg PO BID [facility] Last Admin: 11/03/16 18:03 Dose: Not Given Famotidine (Pepcid) 20 mg PO DAILY [facility] Last Admin: 11/03/16 18:03 Dose: Not Given Hydromorphone HCl (Dilaudid) 1 mg IVP Q4H PRN PRN Reason: Pain, severe (8-10) Last Admin: 11/04/16 04:53 Dose: 1 mg Imipenem/Cilastatin Sodium 500 (mg/ Sodium Chloride) 100 mls @ 100 mls/hr IVPB Q6H [facility] Last Admin: 11/04/16 05:17 Dose: 100 mls/hr Telavancin 750 mg/ Sodium (Chloride) 100 mls @ 100 mls/hr IVPB Q24H [facility] Last Admin: 11/03/16 18:01 Dose: 100 mls/hr Insulin Aspart (Novolog) 0 unit SC ACHS [facility] PRN Reason: Protocol Last Admin: 11/03/16 21:10 Dose: 3 unit Insulin Detemir (Levemir) 20 unit SC HS [facility] Last Admin: 11/03/16 21:11 Dose: 20 unit Lisinopril (Zestril) 20 mg PO DAILY [facility] Last Admin: 11/03/16 10:21 Dose: Not Given Metoprolol Tartrate (Lopressor) 50 mg PO Q12H [facility] Last Admin: 11/03/16 19:44 Dose: 50 mg Oxycodone/Acetaminophen (Percocet 5/325 Mg Tab) 2 tab PO Q6H [facility] Stop: 11/10/16 08:01 Saccharomyces Boulardii (Florastor) 250 mg PO BID [facility] - Labs Labs: 11/04/16 06:28 11/04/16 06:26 PT 15.2 SECONDS (9.7-12.2) H 11/03/16 08:05 INR 1.3 11/03/16 08:05 APTT 32 SECONDS (21-34) 11/03/16 08:05 - Constitutional Appears: No Acute Distress - Head Exam Head Exam: NORMOCEPHALIC - ENT Exam ENT Exam: Mucous Membranes Moist - Respiratory Exam Respiratory Exam: NORMAL BREATHING PATTERN - Cardiovascular Exam Cardiovascular Exam: Tachycardia, +S1, +S2 - GI/Abdominal Exam GI & Abdominal Exam: Soft - Neurological Exam Neurological Exam: Alert, Awake, Oriented x3 - Psychiatric Exam Psychiatric exam: Normal Mood - Skin Skin Exam: Dry, Normal Color Assessment and Plan - Assessment and Plan (Free Text) Assessment: 40M w/ Right lung empyema s/p VATS converted to thoracotomy w/ decortication, parietal pleurectomy, and RLL wedge resection -F/u CXR -F/u AM labs -Monitor chest tube outputs -OOB to chair -Encourage incentive spirometer use -Daily dressing changes -Medical management as per ICU team -Further recs per Dr. Villagomez
[2016-11-04] MEDS: (Novolog) Insulin Aspart, Recombinant 100 u/ml 10 ml vial SC SCH ×4 (08:30→21:26)
[2016-11-04] MEDS ORDERED: Insulin Detemir 100 units/ml Vial (Levemir) SC SCH (09:03)
--- NOTE | 2016-11-04 09:07 | RAD ---
HISTORY: s/p chest tubes COMPARISON: 11/03/2016 FINDINGS: LUNGS: Chest tubes in stable position. Persistent small to moderate right pleural effusion. Diffuse airspace opacification in the right mid to lower lung zone. PLEURA: As above. CARDIOVASCULAR: Cardiomegaly. OSSEOUS STRUCTURES: No significant abnormalities. VISUALIZED UPPER ABDOMEN: Normal. OTHER FINDINGS: None. IMPRESSION: No significant interval change.
[2016-11-04] MEDS: Oxycodone/Acetaminophen 5/325 mg Tab PO SCH ×3 (09:08→20:45)
[2016-11-04] MEDS: Saccharomyces Boulardi 250 mg Cap PO SCH ×2 (09:08→18:25)
--- NOTE | 2016-11-04 10:59 | CP.PCM.PN ---
<Florencio Wade - Last Filed: 11/04/16 14:41> Subjective - Date & Time of Evaluation Date of Evaluation: 11/04/16 Time of Evaluation: 10:56 - Subjective Subjective: Cardiology Progress Note Dr. Lin Patient seen and examined at the bedside. No acute distress. No acute events overnight. Patient is POD #1 s/p thoracotomy with Dr. Villagomez. The patient tolerated the procedure well. The patient notes improved SOB and chest pain. The patient is sitting comfortably in bedside chair during examination. The patient denies all other complaints this morning. 12 point review of systems was completed and negative except for the above, stated complaints. Objective - Vital Signs/Intake and Output Vital Signs (last 24 hours): Temp Pulse Resp BP Pulse Ox 99.5 F 102 H 23 135/80 99 11/04/16 04:00 11/04/16 07:00 11/04/16 07:00 11/04/16 06:51 11/04/16 07:00 Intake and Output: 11/04/16 11/04/16 06:59 18:59 Intake Total 1340 50 Output Total 1189 45 Balance 151 5 - Medications Medications: Current Medications Docusate Sodium (Colace) 100 mg PO BID [facility] Last Admin: 11/04/16 09:08 Dose: 100 mg Famotidine (Pepcid) 20 mg PO DAILY [facility] Last Admin: 11/04/16 09:09 Dose: 20 mg Hydromorphone/Sodium Chloride (Dilaudid Kier Operator) 3.6 mg IV Q4H PRN; Protocol PRN Reason: Pain, Mild (1-3) Last Admin: 11/04/16 09:18 Dose: 3.6 mg Imipenem/Cilastatin Sodium 500 (mg/ Sodium Chloride) 100 mls @ 100 mls/hr IVPB Q6H [facility] Last Admin: 11/04/16 05:17 Dose: 100 mls/hr Telavancin 750 mg/ Sodium (Chloride) 100 mls @ 100 mls/hr IVPB Q24H [facility] Last Admin: 11/03/16 18:01 Dose: 100 mls/hr Insulin Aspart (Novolog) 0 unit SC ACHS [facility] PRN Reason: Protocol Last Admin: 11/04/16 08:30 Dose: 10 unit Insulin Detemir (Levemir) 30 unit SC HS [facility] Lisinopril (Zestril) 20 mg PO DAILY [facility] Last Admin: 11/04/16 09:09 Dose: 20 mg Metoprolol Tartrate (Lopressor) 50 mg PO Q12H [facility] Last Admin: 11/04/16 08:30 Dose: 50 mg Oxycodone/Acetaminophen (Percocet 5/325 Mg Tab) 2 tab PO Q6H [facility] Stop: 11/10/16 08:46 Last Admin: 11/04/16 09:08 Dose: 2 tab Saccharomyces Boulardii (Florastor) 250 mg PO BID [facility] Last Admin: 11/04/16 09:08 Dose: 250 mg - Labs Labs: 11/04/16 06:28 11/04/16 06:26 PT 15.2 SECONDS (9.7-12.2) H 11/03/16 08:05 INR 1.3 11/03/16 08:05 APTT 32 SECONDS (21-34) 11/03/16 08:05 - Additional Findings Additional findings: - Constitutional Appears: Well, No Acute Distress - Head Exam Head Exam: ATRAUMATIC, NORMAL INSPECTION, NORMOCEPHALIC - Eye Exam Eye Exam: EOMI, Normal appearance Pupil Exam: NORMAL ACCOMODATION - ENT Exam ENT Exam: Mucous Membranes Moist, Normal Exam - Neck Exam Neck exam: Positive for: Full Rom, Normal Inspection. Negative for: Tenderness - Respiratory Exam Respiratory Exam: Decreased Breath Sounds (right lung mid and base), NORMAL BREATHING PATTERN. absent: Accessory Muscle Use, Clear to Auscultation Bilateral, Rales, Rhonchi, Wheezes, Respiratory Distress - Cardiovascular Exam Cardiovascular Exam: Tachycardia, REGULAR RHYTHM, +S1, +S2. absent: Diastolic murmur, RRR, Systolic Murmur - GI/Abdominal Exam GI & Abdominal Exam: Normal Bowel Sounds, Soft. absent: Distended, Firm, Guarding, Tenderness - Extremities Exam Extremities exam: Positive for: normal capillary refill, normal inspection, pedal pulses present - Back Exam Back exam: NORMAL INSPECTION. absent: CVA tenderness (L), CVA tenderness (R) - Neurological Exam Neurological exam: Alert, CN II-XII Intact, Oriented x3 - Skin Skin Exam: Dry, Intact, Normal Color, Warm Assessment and Plan (1) Tachycardia Assessment & Plan: 11/04/16 ELG- sinus tachycardia, physiologic axis, normal MN interval, normal QRS duration, prolonged QTc, poor R wave progression, no ST or T wave abnormalities will continue to monitor continue tele monitoring 11/02/16 EKG- sinus tachycardia, right axis deviation, normal MN interval, normal QRS duration, prolonged QTc, nonspecific ST/T wave abnormality 11/03/15 Echo- EF 53%, normal diastolic filling pressures Troponin negative x 2 (<0.0120 x 2) CK-MB negative x 2 (1.00 > 0.63) BNP 102 (normal) Case Discussed with Dr. Delia Wade PGY1 Status: Acute (3) Pre-procedural cardiovascular examination Assessment & Plan: Cardiac Risk Assessment- (Low Risk for VATS) - Detsky Score 10: Class I - Low Risk - Jenkins Score 3: Class I - Low Risk - Tunde Score 2- Moderate Risk Status: Resolved <Saravanan Lin - Last Filed: 12/28/16 10:27> Objective - Vital Signs/Intake and Output Vital Signs (last 24 hours): Temp Pulse Resp BP Pulse Ox 97.7 F 82 18 120/83 95 11/30/16 08:06 11/30/16 08:06 11/30/16 08:06 11/30/16 08:06 11/30/16 08:06 - Labs Labs: 11/29/16 07:08 11/29/16 07:08 PT 14.4 SECONDS (9.7-12.2) H 11/29/16 07:08 INR 1.3 11/29/16 07:08 APTT 35 SECONDS (21-34) H 11/29/16 07:08 Assessment and Plan (1) HTN (hypertension) Status: Chronic (2) Tachycardia Status: Resolved Attending/Attestation - Attestation I have personally seen and examined this patient.: Yes I have fully participated in the care of the patient.: Yes I have reviewed all pertinent clinical information, including history, physical exam and plan: Yes Notes (Text): 12/28/16 10:26 s/p thoracotomay stable follow anemia
[2016-11-04] MEDS ORDERED: HYDROmorphone 1 mg/ml ISec IVP STA (12:26)
[2016-11-04 12:30] LABS: H INFLUENZAE B NOT REQUIRED (NEGATIVE); N MENINGITIS ACY/W135 NOT REQUIRED (NEGATIVE); N MENINGITIS B/ECOLI K1 NOT REQUIRED (NEGATIVE)
[2016-11-04] MEDS ORDERED: HYDROmorphone 1 mg/ml ISec IVP ONE (13:00)
--- NOTE | 2016-11-04 13:18 | CP.PCM.PN ---
Subjective - Date & Time of Evaluation Date of Evaluation: 11/04/16 Time of Evaluation: 13:13 - Subjective Subjective: POD#1. Pt s/e. OOB this am. pain-surgical site. States breathing better. Tmax. Sinus tach. Chest tubes-300/350cc/since OR-serosaguinous -no air leak. wbc-8k hb-9.2 CXR-No pneumo-small to moderate effusuion-consistent with post decortication and pleuredtomy. a/p: Satisfactory pod#1. 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 am labs and cxr. antibiotic. Objective - Vital Signs/Intake and Output Vital Signs (last 24 hours): Temp Pulse Resp BP Pulse Ox 99.5 F 102 H 23 135/80 99 11/04/16 04:00 11/04/16 07:00 11/04/16 07:00 11/04/16 06:51 11/04/16 07:00 Intake and Output: 11/04/16 11/04/16 06:59 18:59 Intake Total 1340 50 Output Total 1189 45 Balance 151 5 - Medications Medications: Current Medications Docusate Sodium (Colace) 100 mg PO BID [facility] Last Admin: 11/04/16 09:08 Dose: 100 mg Famotidine (Pepcid) 20 mg PO DAILY [facility] Last Admin: 11/04/16 09:09 Dose: 20 mg Hydromorphone/Sodium Chloride (Dilaudid Road Traffic Controller) 3.6 mg IV Q4H PRN; Protocol PRN Reason: Pain, Mild (1-3) Last Admin: 11/04/16 09:18 Dose: 3.6 mg Imipenem/Cilastatin Sodium 500 (mg/ Sodium Chloride) 100 mls @ 100 mls/hr IVPB Q6H [facility] Last Admin: 11/04/16 05:17 Dose: 100 mls/hr Telavancin 750 mg/ Sodium (Chloride) 100 mls @ 100 mls/hr IVPB Q24H [facility] Last Admin: 11/03/16 18:01 Dose: 100 mls/hr Insulin Aspart (Novolog) 0 unit SC ACHS [facility] PRN Reason: Protocol Last Admin: 11/04/16 08:30 Dose: 10 unit Insulin Detemir (Levemir) 30 unit SC [facility] Lisinopril (Zestril) 20 mg PO DAILY [facility] Last Admin: 11/04/16 09:09 Dose: 20 mg Metoprolol Tartrate (Lopressor) 50 mg PO Q12H [facility] Last Admin: 11/04/16 08:30 Dose: 50 mg Oxycodone/Acetaminophen (Percocet 5/325 Mg Tab) 2 tab PO Q6H [facility] Stop: 11/10/16 08:46 Last Admin: 11/04/16 09:08 Dose: 2 tab Saccharomyces Boulardii (Florastor) 250 mg PO BID [facility] Last Admin: 11/04/16 09:08 Dose: 250 mg - Labs Labs: 11/04/16 06:28 11/04/16 06:26 PT 15.2 SECONDS (9.7-12.2) H 11/03/16 08:05 INR 1.3 11/03/16 08:05 APTT 32 SECONDS (21-34) 11/03/16 08:05
[2016-11-04] MEDS ORDERED: POLYETHYLENE GLYCOL 3350 17 GM/Dose PACKET PO ONE (17:24)
--- NOTE | 2016-11-04 17:40 | CP.PCM.PN ---
Subjective - Date & Time of Evaluation Date of Evaluation: 11/04/16 Time of Evaluation: 17:40 - Subjective Subjective: Medical Attending Note Follow-up: Emypema, Pneumonia, Pleural Effusion, Hx of recent influenza, Diabetes, Hypertension Patient seen, examined, and case discussed with ICU. Patient sitting upright. Patient awake, alert, and oriented X3. Patient has 2 chest tubes, draining ouput. Patient report flatus; awaiting bowel movement. Patient report pleuri tic pain over the site of the chest tubes. Objective - Vital Signs/Intake and Output Vital Signs (last 24 hours): Temp Pulse Resp BP Pulse Ox 99.5 F 100 H 27 H 116/73 92 L 11/04/16 04:00 11/04/16 14:19 11/04/16 14:19 11/04/16 14:19 11/04/16 14:19 Intake and Output: 11/04/16 11/04/16 06:59 18:59 Intake Total 1340 941.5 Output Total 1189 725 Balance 151 216.5 - Medications Medications: Current Medications Docusate Sodium (Colace) 100 mg PO BID [facility] Last Admin: 11/04/16 09:08 Dose: 100 mg Famotidine (Pepcid) 20 mg PO DAILY [facility] Last Admin: 11/04/16 09:09 Dose: 20 mg Hydromorphone/Sodium Chloride (Dilaudid Neuroscience Director Na) 3.6 mg IV Q4H PRN; Protocol PRN Reason: Pain, Mild (1-3) Last Admin: 11/04/16 09:18 Dose: 3.6 mg Imipenem/Cilastatin Sodium 500 (mg/ Sodium Chloride) 100 mls @ 100 mls/hr IVPB Q6H [facility] Last Admin: 11/04/16 13:24 Dose: 100 mls/hr Telavancin 750 mg/ Sodium (Chloride) 100 mls @ 100 mls/hr IVPB Q24H [facility] Last Admin: 11/03/16 18:01 Dose: 100 mls/hr Insulin Aspart (Novolog) 0 unit SC ACHS [facility] PRN Reason: Protocol Last Admin: 11/04/16 16:58 Dose: 10 unit Insulin Detemir (Levemir) 30 unit SC [facility] Lisinopril (Zestril) 20 mg PO DAILY [facility] Last Admin: 11/04/16 09:09 Dose: 20 mg Metoprolol Tartrate (Lopressor) 50 mg PO Q12H [facility] Last Admin: 11/04/16 08:30 Dose: 50 mg Oxycodone/Acetaminophen (Percocet 5/325 Mg Tab) 2 tab PO Q6H [facility] Stop: 11/10/16 08:46 Last Admin: 11/04/16 16:58 Dose: 2 tab Saccharomyces Boulardii (Florastor) 250 mg PO BID [facility] Last Admin: 11/04/16 09:08 Dose: 250 mg - Labs Labs: 11/04/16 06:28 11/04/16 06:26 PT 15.2 SECONDS (9.7-12.2) H 11/03/16 08:05 INR 1.3 11/03/16 08:05 APTT 32 SECONDS (21-34) 11/03/16 08:05 - Constitutional Appears: Non-toxic, In Acute Distress - Head Exam Head Exam: NORMAL INSPECTION - Eye Exam Eye Exam: EOMI - ENT Exam ENT Exam: Mucous Membranes Moist - Respiratory Exam Respiratory Exam: Decreased Breath Sounds. absent: Respiratory Distress, Stridor - Cardiovascular Exam Cardiovascular Exam: REGULAR RHYTHM, +S1, +S2 - GI/Abdominal Exam GI & Abdominal Exam: Soft. absent: Distended, Firm, Guarding, Rigid, Tenderness , Normal Bowel Sounds, Rebound - Extremities Exam Extremities Exam: Normal Capillary Refill. absent: Pedal Edema, Tenderness - Neurological Exam Neurological Exam: Alert, Awake, Oriented x3 - Psychiatric Exam Psychiatric exam: Normal Affect, Normal Mood - Skin Skin Exam: Dry, Normal Color, Warm Assessment and Plan (1) Empyema Status: Acute (2) Diabetes mellitus Status: Chronic (3) HTN (hypertension) Status: Chronic (4) Pneumonia Status: Acute (5) Prophylactic measure Status: Acute - Assessment and Plan (Free Text) Assessment: Assessment & Plan (1) Empyema Assessment and Plan: * CT surgery (Dr. Villagomez) on board * Infectious disease (Dr. East) on board * Hx of influenza (10/02/16) * Primaxin 500mg IV Q 6hout (active since 11/02/16) * Telavancin 750mg IV Q24 hours (active since 11/02/16) * pending fluid studies * Chest Xray (11/03/16): history of right thoracotomy-no gross resection of a rib appreciated. Extensive opacities overlying the mid right hemithorax. No pneumothorax seen. No mediastinal shift noed. Right pleural parenchymal opacity consistent w residual right loculated pleural fluid and probably pulmonary coalsecent interstitial edema. * Chest Xray (11/04/16): no significant interval change * Chest CT (11/02/16): No CT evidence for acute pulmonary embolism. Large right pleural effusion with compressive atelectasis in the lower love. Superimposed pneumonia cannot be excluded. Follow-up advised. * Operative note: VATS coverted to thoractomy, parietal pleurectomy, decortication, wedge resection of right lower love. Evacuation of empyema and fibrous exudate (given PRBC during OR)-->2 chest tubes; monitor outputs * pending GC/Quantiferon * Aerboic, anaerobic, Blood culture: No growth thus far, fungus culture: no elements, AFB, gram stain: gram positive cocci, mycobacterium, tissue culture: no growth * Echo (11/02/16): EF: 65% (official report available in the EMR) * Negative Hepatitis panel, negative HI * Fluid studies: elevated WBC; all cells are deteriorated Status: Acute (2) Pleural effusion on right Status: Acute (3) Pneumonia Assessment and Plan: * Primaxin 500mg IVQ 6hour (active since 11/02/16) * Telavancin 750mg IV Q24 hours (active since 11/02/16) * Infectious disease (Dr. East) on board * Negative legionella, negative mycoplasma IgM, negative Strep, negative HIV, negative hepatitis * Florastor 250mg PO bid Status: Acute (4) Diabetes * Levemir 30 units subqHS * Lisinopril 20mg PO daily * Metoprolol tarate 50mg PO Q 12hour * Novolog sliding scale subq * Accuchecks q6 hours * Uncontrolled; a1c: 11.6 (10/16/16) * T Chol: 208 LDL:106 HDL:38 Status: Chronic (5) Hypertension * Lisinopril 20mg PO daily * Metoprolol 50mg PO Q 12hours (6) Anemia * Negative stool occult blood * ordered for Low iron, TIBC, normal %iron saturation, normal folate, normal B12 , increased reticulocyte count-->will need iron supplementation * Note: patient is post OR POD 1 (5) Prophylactic care * Pepcid 20mg PO daily for GI ppx * Colace 100mg PO bid * Florastor 250mg PO bid * Dilaudid AUTOMATIC SPINNING LATHE SETTER * Percocet 2 tab PO Q 6hour PRN pain
--- NOTE | 2016-11-04 18:04 | CP.PCM.PN ---
Subjective - Date & Time of Evaluation Date of Evaluation: 11/04/16 Time of Evaluation: 18:00 - Subjective Subjective: INFECTIOUS DISEASE ICU # [id number] PROGRESS NOTE MARIA DIAZ MD, FACP 11/04/2016 CHART REVIEWED PT EXAMINED CASE DISCUSSED CLINICALLY STILL REQUIRING 2 DRAINS FROM HIS THORACOTOMY SITE APPARENTLY A LARGE AMOUNT OF PUS WAS FOUND AND DRAINED FROM HIS RIGHT LUNG. TO CONTINUE DALAVANCINA ND PRIMAXIN IV PENDING MORE DEFINTIVE C/S RESULTS. REC/S FROM THE DRAIN SITES. Objective - Vital Signs/Intake and Output Vital Signs (last 24 hours): Temp Pulse Resp BP Pulse Ox 99.5 F 100 H 27 H 116/73 92 L 11/04/16 04:00 11/04/16 14:19 11/04/16 14:19 11/04/16 14:19 11/04/16 14:19 Intake and Output: 11/04/16 11/04/16 06:59 18:59 Intake Total 1340 1252.5 Output Total 1189 725 Balance 151 527.5 - Medications Medications: Current Medications Docusate Sodium (Colace) 100 mg PO BID [facility] Last Admin: 11/04/16 09:08 Dose: 100 mg Famotidine (Pepcid) 20 mg PO DAILY [facility] Last Admin: 11/04/16 09:09 Dose: 20 mg Hydromorphone/Sodium Chloride (Dilaudid Dye Can Operator) 3.6 mg IV Q4H PRN; Protocol PRN Reason: Pain, Mild (1-3) Last Admin: 11/04/16 09:18 Dose: 3.6 mg Imipenem/Cilastatin Sodium 500 (mg/ Sodium Chloride) 100 mls @ 100 mls/hr IVPB Q6H [facility] Last Admin: 11/04/16 13:24 Dose: 100 mls/hr Telavancin 750 mg/ Sodium (Chloride) 100 mls @ 100 mls/hr IVPB Q24H [facility] Last Admin: 11/03/16 18:01 Dose: 100 mls/hr Insulin Aspart (Novolog) 0 unit SC ACHS [facility] PRN Reason: Protocol Last Admin: 11/04/16 16:58 Dose: 10 unit Insulin Detemir (Levemir) 30 unit SC HS [facility] Lisinopril (Zestril) 20 mg PO DAILY [facility] Last Admin: 11/04/16 09:09 Dose: 20 mg Metoprolol Tartrate (Lopressor) 50 mg PO Q12H [facility] Last Admin: 11/04/16 08:30 Dose: 50 mg Oxycodone/Acetaminophen (Percocet 5/325 Mg Tab) 2 tab PO Q6H [facility] Stop: 11/10/16 08:46 Last Admin: 11/04/16 16:58 Dose: 2 tab Saccharomyces Boulardii (Florastor) 250 mg PO BID [facility] Last Admin: 11/04/16 09:08 Dose: 250 mg - Labs Labs: 11/04/16 06:28 11/04/16 06:26 PT 15.2 SECONDS (9.7-12.2) H 11/03/16 08:05 INR 1.3 11/03/16 08:05 APTT 32 SECONDS (21-34) 11/03/16 08:05 - Constitutional Appears: Non-toxic, In Acute Distress - Head Exam Head Exam: ATRAUMATIC - Eye Exam Eye Exam: Normal appearance - ENT Exam ENT Exam: Mucous Membranes Moist - Neck Exam Neck Exam: Normal Inspection - Respiratory Exam Respiratory Exam: Chest Wall Tenderness, Decreased Breath Sounds Additional comments: MARKED DECREASED BREATH SOUNDS RIGHT LUNG.. REQUIRING PAIN MEDS - Cardiovascular Exam Cardiovascular Exam: Tachycardia - GI/Abdominal Exam GI & Abdominal Exam: Soft, Hypoactive Bowel Sounds - Rectal Exam Rectal Exam: Deferred - Extremities Exam Extremities Exam: Normal Capillary Refill - Psychiatric Exam Psychiatric exam: Anxious - Skin Skin Exam: Normal Color, Warm Assessment and Plan (1) Empyema Status: Acute (2) Pleural effusion on right Status: Acute (3) Pneumonia Status: Acute (4) Anemia Status: Acute (5) Tachycardia Status: Acute (6) Hyperglycemia Status: Acute (7) HTN (hypertension) Status: Chronic
--- NOTE | 2016-11-04 18:47 | CP.PCM.PN ---
Subjective - Date & Time of Evaluation Date of Evaluation: 11/04/16 Time of Evaluation: 16:45 - Subjective Subjective: Patient seen and examined for Dr. Hernandez 40M w/ Right lung empyema s/p VATS converted to thoracotomy w/ decortication, parietal pleurectomy, and RLL wedge resection Complaining of slight pain at chest tube insertion site Denies fever or chills On antibiotics as per infectious disease Objective - Vital Signs/Intake and Output Vital Signs (last 24 hours): Temp Pulse Resp BP Pulse Ox 99.5 F 108 H 27 H 125/74 91 L 11/04/16 04:00 11/04/16 18:00 11/04/16 18:00 11/04/16 17:52 11/04/16 18:00 Intake and Output: 11/04/16 11/04/16 06:59 18:59 Intake Total 1340 1303.5 Output Total 1189 725 Balance 151 578.5 - Medications Medications: Current Medications Docusate Sodium (Colace) 100 mg PO BID [facility] Last Admin: 11/04/16 18:24 Dose: 100 mg Famotidine (Pepcid) 20 mg PO DAILY [facility] Last Admin: 11/04/16 09:09 Dose: 20 mg Hydromorphone/Sodium Chloride (Dilaudid [employer]) 3.6 mg IV Q4H PRN; Protocol PRN Reason: Pain, Mild (1-3) Last Admin: 11/04/16 09:18 Dose: 3.6 mg Imipenem/Cilastatin Sodium 500 (mg/ Sodium Chloride) 100 mls @ 100 mls/hr IVPB Q6H [facility] Last Admin: 11/04/16 18:25 Dose: 100 mls/hr Telavancin 750 mg/ Sodium (Chloride) 100 mls @ 100 mls/hr IVPB Q24H [facility] Last Admin: 11/03/16 18:01 Dose: 100 mls/hr Insulin Aspart (Novolog) 0 unit SC ACHS [facility] PRN Reason: Protocol Last Admin: 11/04/16 16:58 Dose: 10 unit Insulin Detemir (Levemir) 30 unit SC HS [facility] Lisinopril (Zestril) 20 mg PO DAILY [facility] Last Admin: 11/04/16 09:09 Dose: 20 mg Metoprolol Tartrate (Lopressor) 50 mg PO Q12H [facility] Last Admin: 11/04/16 08:30 Dose: 50 mg Oxycodone/Acetaminophen (Percocet 5/325 Mg Tab) 2 tab PO Q6H [facility] Stop: 11/10/16 08:46 Last Admin: 11/04/16 16:58 Dose: 2 tab Saccharomyces Boulardii (Florastor) 250 mg PO BID [facility] Last Admin: 11/04/16 18:25 Dose: 250 mg - Labs Labs: 11/04/16 06:28 11/04/16 06:26 PT 15.2 SECONDS (9.7-12.2) H 11/03/16 08:05 INR 1.3 11/03/16 08:05 APTT 32 SECONDS (21-34) 11/03/16 08:05 - Head Exam Head Exam: ATRAUMATIC, NORMOCEPHALIC - Eye Exam Eye Exam: Normal appearance - ENT Exam ENT Exam: Mucous Membranes Moist - Neck Exam Neck Exam: Normal Inspection - Respiratory Exam Respiratory Exam: Decreased Breath Sounds (In the right base) - Cardiovascular Exam Cardiovascular Exam: REGULAR RHYTHM - GI/Abdominal Exam GI & Abdominal Exam: Soft, Normal Bowel Sounds - Extremities Exam Extremities Exam: Full ROM, Normal Inspection Assessment and Plan (1) Empyema Assessment & Plan: 40M w/ Right lung empyema s/p VATS converted to thoracotomy w/ decortication, parietal pleurectomy, and RLL wedge resection Continue antibiotics per infectious disease and follow up culture and sensitivity of pleural fluid Continue pain medications Status: Acute
[2016-11-04] MEDS: Telavancin Hydrochloride 750 MG in Sodium Chloride 0.9% 100 ML IVPB SCH (19:00)
[2016-11-05] MEDS: Oxycodone/Acetaminophen 5/325 mg Tab PO SCH ×2 (02:45→09:22)
[2016-11-05 08:03] LABS: BASO % 0.3 % (0.0-2.0); MONO # 1.4 K/uL (0.0-0.8)
[2016-11-05 08:13] LABS: EOS # 0.1 K/uL (0.0-0.7); EOS % 0.9 % (0.0-4.0); HEMATOCRIT 29.2 % (35.0-51.0); LYMPH # 1.7 K/uL (1.0-4.3); LYMPH % 10.9 % (20.0-40.0); MEAN CELL VOLUME 85.8 fL (80.0-94.0); MEAN CORPUSCULAR HEMOGLOBIN 27.5 pg (27.0-31.0); MEAN CORPUSCULAR HGB CONC 32.1 g/dL (33.0-37.0); MEAN PLATELET VOLUME 9.8 fL (7.2-11.7); MONO % 8.7 % (0.0-10.0); NRBC % 0.2 % (0.0-2.0); RED CELL DISTRIBUTION WIDTH 14.4 % (11.5-14.5)
[2016-11-05 08:16] LABS: WHITE BLOOD COUNT 15.7 K/uL (4.8-10.8)
[2016-11-05] MEDS: (Novolog) Insulin Aspart, Recombinant 100 u/ml 10 ml vial SC SCH ×4 (08:17→21:06)
--- NOTE | 2016-11-05 08:31 | CP.PCM.PN ---
Subjective - Date & Time of Evaluation Date of Evaluation: 11/05/16 Time of Evaluation: 07:45 - Subjective Subjective: Pt tolerating PO in better spirits Objective - Vital Signs/Intake and Output Vital Signs (last 24 hours): Temp Pulse Resp BP Pulse Ox 97.8 F 97 H 17 97/59 L 97 11/05/16 08:00 11/05/16 08:09 11/05/16 08:09 11/05/16 08:09 11/05/16 08:09 Intake and Output: 11/05/16 11/05/16 06:59 18:59 Intake Total 776.5 131.5 Output Total 300 600 Balance 476.5 -468.5 - Medications Medications: Current Medications Docusate Sodium (Colace) 100 mg PO BID [facility] Last Admin: 11/04/16 18:24 Dose: 100 mg Famotidine (Pepcid) 20 mg PO DAILY [facility] Last Admin: 11/04/16 09:09 Dose: 20 mg Imipenem/Cilastatin Sodium 500 (mg/ Sodium Chloride) 100 mls @ 100 mls/hr IVPB Q6H [facility] Last Admin: 11/05/16 05:53 Dose: 100 mls/hr Telavancin 750 mg/ Sodium (Chloride) 100 mls @ 100 mls/hr IVPB Q24H [facility] Last Admin: 11/04/16 19:00 Dose: 100 mls/hr Insulin Aspart (Novolog) 0 unit SC ACHS [facility] PRN Reason: Protocol Last Admin: 11/05/16 08:17 Dose: 8 unit Insulin Detemir (Levemir) 30 unit SC HS [facility] Last Admin: 11/04/16 21:27 Dose: 30 unit Lisinopril (Zestril) 20 mg PO DAILY [facility] Last Admin: 11/04/16 09:09 Dose: 20 mg Metoprolol Tartrate (Lopressor) 50 mg PO Q12H [facility] Last Admin: 11/05/16 08:10 Dose: Not Given Oxycodone/Acetaminophen (Percocet 5/325 Mg Tab) 2 tab PO Q6H [facility] Stop: 11/10/16 08:46 Last Admin: 11/05/16 02:45 Dose: Not Given Saccharomyces Boulardii (Florastor) 250 mg PO BID [facility] Last Admin: 11/04/16 18:25 Dose: 250 mg - Labs Labs: 11/05/16 07:56 11/04/16 06:26 PT 15.2 SECONDS (9.7-12.2) H 11/03/16 08:05 INR 1.3 11/03/16 08:05 APTT 32 SECONDS (21-34) 11/03/16 08:05 - Constitutional Appears: Well - Head Exam Head Exam: ATRAUMATIC - Eye Exam Eye Exam: Normal appearance - ENT Exam ENT Exam: Mucous Membranes Moist - Respiratory Exam Respiratory Exam: NORMAL BREATHING PATTERN - Cardiovascular Exam Cardiovascular Exam: REGULAR RHYTHM, Murmur - GI/Abdominal Exam GI & Abdominal Exam: Soft, Normal Bowel Sounds - Exam External exam: NORMAL EXTERNAL EXAM. absent: Ecchymosis - Extremities Exam Extremities Exam: Normal Inspection - Neurological Exam Neurological Exam: Alert, Awake, Oriented x3 - Psychiatric Exam Psychiatric exam: Normal Affect, Normal Mood - Skin Skin Exam: Dry, Intact Assessment and Plan (1) Tachycardia Assessment & Plan: Pt continue dvt prophylaxis heart rate under 100 bpm tolerating PO Status: Resolved
--- NOTE | 2016-11-05 08:45 | CP.PCM.PN ---
Subjective - Date & Time of Evaluation Date of Evaluation: 11/05/16 Time of Evaluation: 07:35 - Subjective Subjective: CT Surgery: Dr. Villagomez Pt S&E this AM. Patient states he feels better. Pt OOB to chair. CT dressings changed, c/d/i. CT ouput:330cc/24 #hr1, 150cc/24hr #2. Reports pain medication is too strong, will titrate. Tolerating diet. NAEO. Requesting breathing treatment to loosen up mucus. Objective - Vital Signs/Intake and Output Vital Signs (last 24 hours): Temp Pulse Resp BP Pulse Ox 97.8 F 97 H 17 97/59 L 97 11/05/16 08:00 11/05/16 08:09 11/05/16 08:09 11/05/16 08:09 11/05/16 08:09 Intake and Output: 11/05/16 11/05/16 06:59 18:59 Intake Total 776.5 131.5 Output Total 300 600 Balance 476.5 -468.5 - Medications Medications: Current Medications Docusate Sodium (Colace) 100 mg PO BID [facility] Last Admin: 11/04/16 18:24 Dose: 100 mg Famotidine (Pepcid) 20 mg PO DAILY [facility] Last Admin: 11/04/16 09:09 Dose: 20 mg Imipenem/Cilastatin Sodium 500 (mg/ Sodium Chloride) 100 mls @ 100 mls/hr IVPB Q6H [facility] Last Admin: 11/05/16 05:53 Dose: 100 mls/hr Telavancin 750 mg/ Sodium (Chloride) 100 mls @ 100 mls/hr IVPB Q24H [facility] Last Admin: 11/04/16 19:00 Dose: 100 mls/hr Insulin Aspart (Novolog) 0 unit SC ACHS [facility] PRN Reason: Protocol Last Admin: 11/05/16 08:17 Dose: 8 unit Insulin Detemir (Levemir) 30 unit SC HS [facility] Last Admin: 11/04/16 21:27 Dose: 30 unit Lisinopril (Zestril) 20 mg PO DAILY [facility] Last Admin: 11/04/16 09:09 Dose: 20 mg Metoprolol Tartrate (Lopressor) 50 mg PO Q12H [facility] Last Admin: 11/05/16 08:10 Dose: Not Given Oxycodone/Acetaminophen (Percocet 5/325 Mg Tab) 2 tab PO Q6H [facility] Stop: 11/10/16 08:46 Last Admin: 11/05/16 02:45 Dose: Not Given Saccharomyces Boulardii (Florastor) 250 mg PO BID [facility] Last Admin: 11/04/16 18:25 Dose: 250 mg - Labs Labs: 11/05/16 07:56 11/04/16 06:26 PT 15.2 SECONDS (9.7-12.2) H 11/03/16 08:05 INR 1.3 11/03/16 08:05 APTT 32 SECONDS (21-34) 11/03/16 08:05 - Constitutional Appears: No Acute Distress - ENT Exam ENT Exam: Mucous Membranes Moist - Respiratory Exam Respiratory Exam: NORMAL BREATHING PATTERN - Cardiovascular Exam Cardiovascular Exam: +S1, +S2 - GI/Abdominal Exam GI & Abdominal Exam: Soft - Neurological Exam Neurological Exam: Alert, Awake, Oriented x3 - Psychiatric Exam Psychiatric exam: Normal Mood - Skin Skin Exam: Dry, Normal Color Assessment and Plan - Assessment and Plan (Free Text) Assessment: 40M w/ Right lung empyema s/p VATS converted to thoracotomy w/ decortication, parietal pleurectomy, and RLL wedge resection POD #2 -F/u CXR -F/u AM labs -Monitor chest tube outputs -OOB to chair -Encourage incentive spirometer use -Daily dressing changes -Thoracotomy incision site, clean and non-erythematous -Medical management as per ICU team -Further recs per Dr. Villagomez
[2016-11-05] MEDS: Saccharomyces Boulardi 250 mg Cap PO SCH ×2 (09:13→17:22)
[2016-11-05 09:19] LABS: CHLORIDE 89 mmol/L (98-107); POTASSIUM 3.9 mmol/L (3.6-5.2); SODIUM 121 mmol/L (132-148)
[2016-11-05 09:21] LABS: AST/SGOT 28 U/L (17-59); BILIRUBIN,TOTAL 0.7 mg/dL (0.2-1.3); CARBON DIOXIDE 22 mmol/L (22-30); GFR AFRICAN-AMERICAN > 60
[2016-11-05 09:22] LABS: ALB/GLOB RATIO 0.7 (1.0-2.1); ALKALINE PHOSPHATASE 121 U/L (38-126); ALT/SGPT 17 U/L (21-72); BLOOD UREA NITROGEN 14 mg/dL (9-20); CALCIUM 7.6 mg/dl (8.6-10.4); GLUCOSE,RANDOM 330 mg/dL (75-110); MAGNESIUM 1.7 mg/dL (1.6-2.3); PHOSPHOROUS 3.4 mg/dL (2.5-4.5); TOTAL PROTEIN 6.5 g/dL (6.3-8.3)
--- NOTE | 2016-11-05 09:48 | CP.PCM.PN ---
Subjective - Date & Time of Evaluation Date of Evaluation: 11/05/16 Time of Evaluation: 08:00 - Subjective Subjective: Patient seen and examined patient states that he slept well overnight. Chest tube still draining fluid Objective - Vital Signs/Intake and Output Vital Signs (last 24 hours): Temp Pulse Resp BP Pulse Ox 97.8 F 109 H 26 H 109/76 98 11/05/16 08:00 11/05/16 09:00 11/05/16 09:00 11/05/16 08:32 11/05/16 09:00 Intake and Output: 11/05/16 11/05/16 06:59 18:59 Intake Total 776.5 131.5 Output Total 300 600 Balance 476.5 -468.5 - Medications Medications: Current Medications Albuterol/Ipratropium (Duoneb 3 Mg/0.5 Mg (3 Ml) Ud) 3 ml INH RQ6 [facility] Docusate Sodium (Colace) 100 mg PO BID [facility] Last Admin: 11/05/16 09:13 Dose: 100 mg Famotidine (Pepcid) 20 mg PO DAILY [facility] Last Admin: 11/05/16 09:13 Dose: 20 mg Imipenem/Cilastatin Sodium 500 (mg/ Sodium Chloride) 100 mls @ 100 mls/hr IVPB Q6H [facility] Last Admin: 11/05/16 05:53 Dose: 100 mls/hr Telavancin 750 mg/ Sodium (Chloride) 100 mls @ 100 mls/hr IVPB Q24H [facility] Last Admin: 11/04/16 19:00 Dose: 100 mls/hr Insulin Aspart (Novolog) 0 unit SC ACHS [facility] PRN Reason: Protocol Last Admin: 11/05/16 08:17 Dose: 8 unit Insulin Detemir (Levemir) 30 unit SC HS [facility] Last Admin: 11/04/16 21:27 Dose: 30 unit Lisinopril (Zestril) 20 mg PO DAILY [facility] Last Admin: 11/04/16 09:09 Dose: 20 mg Metoprolol Tartrate (Lopressor) 50 mg PO Q12H [facility] Last Admin: 11/05/16 08:10 Dose: Not Given Oxycodone/Acetaminophen (Percocet 5/325 Mg Tab) 2 tab PO Q6H [facility] Stop: 11/10/16 08:46 Last Admin: 11/05/16 09:22 Dose: Not Given Saccharomyces Boulardii (Florastor) 250 mg PO BID [facility] Last Admin: 11/05/16 09:13 Dose: 250 mg - Labs Labs: 11/05/16 07:56 11/05/16 09:04 PT 15.2 SECONDS (9.7-12.2) H 11/03/16 08:05 INR 1.3 11/03/16 08:05 APTT 32 SECONDS (21-34) 11/03/16 08:05 - Head Exam Head Exam: ATRAUMATIC, NORMOCEPHALIC - Eye Exam Eye Exam: Normal appearance - ENT Exam ENT Exam: Mucous Membranes Moist - Neck Exam Neck Exam: Full ROM - Respiratory Exam Respiratory Exam: Decreased Breath Sounds - Cardiovascular Exam Cardiovascular Exam: REGULAR RHYTHM - GI/Abdominal Exam GI & Abdominal Exam: Soft, Normal Bowel Sounds - Extremities Exam Extremities Exam: Full ROM, Normal Inspection Assessment and Plan (1) Empyema Assessment & Plan: s/p VATS converted to thoracotomy w/ decortication, parietal pleurectomy, and RLL wedge resection Continue antibiotics and pain medication Status: Acute
[2016-11-05 10:31] LABS: RETIC% 2.7 % (0.5-1.5)
[2016-11-05] MEDS: Sodium Chloride 0.9% 1,000 ML IV SCH (10:35)
[2016-11-05] MEDS: Enoxaparin 40 mg Syringe SC SCH (10:48)
[2016-11-05] MEDS: Oxycodone/Acetaminophen 5/325 mg Tab PO PRN ×3 (11:27→23:10)
--- NOTE | 2016-11-05 12:31 | CP.PCM.PN ---
Subjective - Date & Time of Evaluation Date of Evaluation: 11/05/16 Time of Evaluation: 12:00 - Subjective Subjective: This is a 40 yo M with right lung empyema and on 11/03 had a VATS converted to thoracotomy w/ decortication, parietal pleurectomy, and RLL wedge resection. He has two chest tubes at this time and they are both draining a lot still. He is currently day 3 of abx IV Primaxin and Televancin. Blood and pleural fluid cultures have been sent for and are currently negative at this moment. WBC is 15. Afebrile - however he is very sweaty diaphoretic. Currently out of bed to chair. Family present. He reports he is breathing is much better than when he came in. He still has right pain at the area of the chest tubes, controlled with the medication he is currently on. Na was low today 121 and his IVF was already changed over to NSS. Objective - Vital Signs/Intake and Output Vital Signs (last 24 hours): Temp Pulse Resp BP Pulse Ox 96.5 F L 103 H 12 114/74 98 11/05/16 12:00 11/05/16 12:02 11/05/16 12:02 11/05/16 12:02 11/05/16 12:02 Intake and Output: 11/05/16 11/05/16 06:59 18:59 Intake Total 776.5 471.5 Output Total 300 800 Balance 476.5 -328.5 - Medications Medications: Current Medications Albuterol/Ipratropium (Duoneb 3 Mg/0.5 Mg (3 Ml) Ud) 3 ml INH RQ6 [facility] Docusate Sodium (Colace) 100 mg PO BID [facility] Last Admin: 11/05/16 09:13 Dose: 100 mg Enoxaparin Sodium (Lovenox) 40 mg SC DAILY [facility] Last Admin: 11/05/16 10:48 Dose: 40 mg Famotidine (Pepcid) 20 mg PO DAILY [facility] Last Admin: 11/05/16 09:13 Dose: 20 mg Imipenem/Cilastatin Sodium 500 (mg/ Sodium Chloride) 100 mls @ 100 mls/hr IVPB Q6H [facility] Last Admin: 11/05/16 11:29 Dose: 100 mls/hr Telavancin 750 mg/ Sodium (Chloride) 100 mls @ 100 mls/hr IVPB Q24H [facility] Last Admin: 11/04/16 19:00 Dose: 100 mls/hr Sodium Chloride (Sodium Chloride 0.9%) 1,000 mls @ 60 mls/hr IV .[id number] [facility] Last Admin: 11/05/16 10:35 Dose: 60 mls/hr Insulin Aspart (Novolog) 0 unit SC ACHS [facility] PRN Reason: Protocol Last Admin: 11/05/16 11:34 Dose: 12 unit Insulin Detemir (Levemir) 60 unit SC HS [facility] Lisinopril (Zestril) 20 mg PO DAILY [facility] Last Admin: 11/05/16 10:48 Dose: 20 mg Metoprolol Tartrate (Lopressor) 50 mg PO Q12H [facility] Last Admin: 11/05/16 08:10 Dose: Not Given Oxycodone/Acetaminophen (Percocet 5/325 Mg Tab) 2 tab PO Q6H [facility] PRN Reason: Pain, moderate (4-7) Stop: 11/10/16 08:46 Last Admin: 11/05/16 11:27 Dose: 2 tab Saccharomyces Boulardii (Florastor) 250 mg PO BID [facility] Last Admin: 11/05/16 09:13 Dose: 250 mg - Labs Labs: 11/05/16 07:56 11/05/16 09:04 PT 15.2 SECONDS (9.7-12.2) H 11/03/16 08:05 INR 1.3 11/03/16 08:05 APTT 32 SECONDS (21-34) 11/03/16 08:05 - Constitutional Appears: No Acute Distress - Head Exam Head Exam: NORMAL INSPECTION, NORMOCEPHALIC Additional comments: Very sweaty - Eye Exam Eye Exam: Normal appearance Pupil Exam: NORMAL ACCOMODATION - ENT Exam ENT Exam: Mucous Membranes Moist - Neck Exam Neck Exam: Normal Inspection - Respiratory Exam Respiratory Exam: Decreased Breath Sounds, Clear to Ausculation Bilateral, NORMAL BREATHING PATTERN Additional comments: Decreased breath sounds right lung. - Cardiovascular Exam Cardiovascular Exam: REGULAR RHYTHM - GI/Abdominal Exam GI & Abdominal Exam: Soft, Normal Bowel Sounds - Neurological Exam Neurological Exam: Alert, Awake, Oriented x3 Neuro motor strength exam: Left Upper Extremity: 5, Right Upper Extremity: 5 - Psychiatric Exam Psychiatric exam: Normal Affect, Normal Mood - Skin Skin Exam: Normal Color, Warm Assessment and Plan - Assessment and Plan (Free Text) Assessment: Assessment & Plan (1) Empyema and Pleural effusion 11/05: As of this morning there is still a lot of drainage from both chest tubes. The CXRAY from yesterday still showing pleural effusion. Still has decreased breath sounds on right side. At this point the blood and pleural fluid cultures and fungal studies are negative at this time. Currently Day 3 of IV abx. * CT surgery (Dr. Villagomez) on board * Infectious disease (Dr. East) on board * Hx of influenza (10/02/16) * Primaxin 500mg IV Q 6hout (active since 11/02/16) * Telavancin 750mg IV Q24 hours (active since 11/02/16) * pending fluid studies * Chest Xray (11/03/16): history of right thoracotomy-no gross resection of a rib appreciated. Extensive opacities overlying the mid right hemithorax. No pneumothorax seen. No mediastinal shift noed. Right pleural parenchymal opacity consistent w residual right loculated pleural fluid and probably pulmonary coalsecent interstitial edema. * Chest Xray (11/04/16): no significant interval change * Chest CT (11/02/16): No CT evidence for acute pulmonary embolism. Large right pleural effusion with compressive atelectasis in the lower love. Superimposed pneumonia cannot be excluded. Follow-up advised. * Operative note: VATS coverted to thoractomy, parietal pleurectomy, decortication, wedge resection of right lower love. Evacuation of empyema and fibrous exudate (given PRBC during OR)-->2 chest tubes; monitor outputs * pending GC/Quantiferon * Aerboic, anaerobic, Blood culture: No growth thus far, fungus culture: no elements, AFB, gram stain: gram positive cocci, mycobacterium, tissue culture: no growth * Echo (11/02/16): EF: 65% (official report available in the EMR) * Negative Hepatitis panel, negative HI (2) Pneumonia * Primaxin 500mg IVQ 6hour (active since 11/02/16) * Telavancin 750mg IV Q24 hours (active since 11/02/16) * Infectious disease (Dr. East) on board * Negative legionella, negative mycoplasma IgM, negative Strep, negative HIV, negative hepatitis * Florastor 250mg PO bid (3) Diabetes * Levemir 30 units subqHS * Lisinopril 20mg PO daily * Metoprolol tarate 50mg PO Q 12hour * Novolog sliding scale subq * Accuchecks q6 hours * Uncontrolled; a1c: 11.6 (10/16/16) * T Chol: 208 LDL:106 HDL:38 (4) Hypertension * Lisinopril 20mg PO daily * Metoprolol 50mg PO Q 12hours (5) Anemia 11/05: Hgb 9.7 at this time, continue to monitor. He previously had transfusion * Negative stool occult blood * ordered for Low iron, TIBC, normal %iron saturation, normal folate, normal B12 , increased reticulocyte count-->will need iron supplementation * Note: patient is post OR POD 1 (6) Prophylactic care * Pepcid 20mg PO daily for GI ppx * Colace 100mg PO bid * Florastor 250mg PO bid * Dilaudid [employer] * Percocet 2 tab PO Q 6hour PRN pain
[2016-11-05] MEDS: Albuterol-Ipratrop 3 mg / 0.5 (3 ml) UD INH SCH ×2 (13:09→19:19)
--- NOTE | 2016-11-05 13:41 | CP.CCUPN ---
CCU Subjective - Physician Review Events Since Last Encounter (Free Text): 11/05/16 13:36 Patient's pain has improved significantly. CCU Objective - Vital Signs / Intake & Output Vital Signs (Last 4 hours): Vital Signs Temp Pulse Resp BP Pulse Ox 11/05/16 13:00 109 H 17 97 11/05/16 12:32 105 H 19 122/70 97 11/05/16 12:30 104 H 11 L 97 11/05/16 12:02 103 H 12 114/74 98 11/05/16 12:00 96.5 F L 105 H 20 98 11/05/16 11:32 103 H 19 122/74 97 11/05/16 11:30 104 H 15 98 11/05/16 11:03 104 H 14 112/69 97 11/05/16 11:00 104 H 15 98 11/05/16 10:32 109 H 25 H 128/77 97 11/05/16 10:30 116 H 12 88 L 11/05/16 10:02 111 H 12 122/59 L 97 11/05/16 10:00 111 H 15 98 Intake and Output (Last 8hrs): Intake & Output 11/04/16 11/05/16 11/05/16 22:59 06:59 14:59 Intake Total 681.5 452.0 771.5 Output Total 220 150 800 Balance 461.5 302.0 -28.5 Intake: Intake, IV Amount 411.5 112.0 261.5 Left Upper Arm Y port 7.0 Left Upper arm 200 Right Upper arm 200 100 y port,rt upper arm 4.5 12.0 261.5 Oral 270 340 510 Output: Chest Tube Drainage 70 200 Right Mid-Axillary Chest 150 Right Mid-Axillary Chest 70 50 #2 Urine 150 150 600 Urine, Voided 150 150 600 Other: # Bowel Movements 0 - Physical Exam Head: Positive for: Atraumatic, Normocephalic Pupils: Positive for: PERRL Extroacular Muscles: Positive for: EOMI Conjunctiva: Positive for: Normal Mouth: Positive for: Moist Mucous Membranes Respiratory/Chest: Positive for: Decreased Breath Sounds, Other (on BIPAP). Negative for: Respiratory Distress, Accessory Muscle Use Cardiovascular: Positive for: Regular Rate and Rhythm, Normal S1, S2, Other (2 chest tubes, right sided ) Abdomen: Positive for: Normal Bowel Sounds. Negative for: Tenderness, Distention Upper Extremity: Positive for: Normal Inspection, Normal ROM, NORMAL PULSES. Negative for: Cyanosis, Edema Lower Extremity: Positive for: Normal Inspection, NORMAL PULSES. Negative for: Edema, CALF TENDERNESS Neurological: Positive for: GCS=15, CN II-XII Intact Skin: Positive for: Warm, Dry, Normal Color - Medications Active Medications: Active Medications Generic Name Dose Route Start Last Admin Trade Name Freq PRN Reason Stop Dose Admin Albuterol/Ipratropium 3 ml 11/05/16 14:00 11/05/16 13:09 Duoneb 3 Mg/0.5 Mg (3 Ml) Ud INH 3 ml RQ6 SHANNON Administration Docusate Sodium 100 mg 11/02/16 18:00 11/05/16 09:13 Colace PO 100 mg BID SHANNON Administration Enoxaparin Sodium 40 mg 11/05/16 10:30 11/05/16 10:48 Lovenox SC 40 mg DAILY SHANNON Administration Famotidine 20 mg 11/02/16 10:00 11/05/16 09:13 Pepcid PO 20 mg DAILY SHANNON Administration Imipenem/Cilastatin Sodium 500 100 mls @ 100 mls/hr 11/02/16 18:00 11/05/16 11:29 mg/ Sodium Chloride IVPB 100 mls/hr Q6H SHANNON Administration Telavancin 750 mg/ Sodium 100 mls @ 100 mls/hr 11/02/16 19:00 11/04/16 19:00 Chloride IVPB 100 mls/hr Q24H SHANNON Administration Sodium Chloride 1,000 mls @ 60 mls/hr 11/05/16 10:15 11/05/16 10:35 Sodium Chloride 0.9% IV 60 mls/hr .[id number] SHANNON Administration Insulin Aspart 0 unit 11/02/16 07:30 11/05/16 11:34 Novolog SC 12 unit ACHS SHANNON Administration Protocol Insulin Detemir 60 unit 11/05/16 10:23 Levemir SC HS [facility] Lisinopril 20 mg 11/02/16 10:00 11/05/16 10:48 Zestril PO 20 mg DAILY SHANNON Administration Metoprolol Tartrate 50 mg 11/03/16 08:45 11/05/16 08:10 Lopressor PO Not Given Q12H SHANNON Oxycodone/Acetaminophen 2 tab 11/05/16 10:17 11/05/16 11:27 Percocet 5/325 Mg Tab PO 11/10/16 08:46 2 tab Q6H PRN Administration Pain, moderate (4-7) Saccharomyces Boulardii 250 mg 11/04/16 10:00 11/05/16 09:13 Florastor PO 250 mg BID SHANNON Administration - Patient Studies Lab Studies: Microbiology Studies 11/03/16 Unknown Fungal Culture - Preliminary Lung Rll 11/03/16 Unknown Fungal Culture - Preliminary Pleural Fluid 11/02/16 Unknown Body Fluid Culture - Preliminary Pleural Fluid NO GROWTH AFTER 24 HOURS 11/03/16 Unknown Gram Stain - Final Lung Tissue Culture - Preliminary No growth. Lab Studies 11/05/16 11/05/16 11/05/16 Range/Units 11:29 09:04 07:56 WBC 15.7 H D (4.8-10.8) K/uL RBC 3.41 L (4.40-5.90) Mil/uL Hgb 9.4 L (12.0-18.0) g/dL Hct 29.2 L (35.0-51.0) % MCV 85.8 (80.0-94.0) fL MCH 27.5 (27.0-31.0) pg MCHC 32.1 L (33.0-37.0) g/dL RDW 14.4 (11.5-14.5) % Plt Count 390 D (130-400) K/uL MPV 9.8 (7.2-11.7) fL Neut % (Auto) 79.2 H (50.0-75.0) % Lymph % (Auto) 10.9 L (20.0-40.0) % Page % (Auto) 8.7 (0.0-10.0) % Eos % (Auto) 0.9 (0.0-4.0) % Baso % (Auto) 0.3 (0.0-2.0) % Neut # 12.4 H (1.8-7.0) K/uL Lymph # 1.7 (1.0-4.3) K/uL Page # 1.4 H (0.0-0.8) K/uL Eos # 0.1 (0.0-0.7) K/uL Baso # 0.0 (0.0-0.2) K/uL Differential Comment Retic Count 2.7 H (0.5-1.5) % Sodium 121 L (132-148) mmol/L Potassium 3.9 (3.6-5.2) mmol/L Chloride 89 L (98-107) mmol/L Carbon Dioxide 22 (22-30) mmol/L Anion Gap 14 (10-20) BUN 14 (9-20) mg/dL Creatinine 0.7 L (0.8-1.5) MG/DL Est GFR ( Amer) > 60 Est GFR (Non-Af Amer) > 60 POC Glucose (mg/dL) 390 H (65-110) mg/dL Random Glucose 330 H (75-110) mg/dL Calcium 7.6 L (8.6-10.4) mg/dl Phosphorus 3.4 (2.5-4.5) mg/dL Magnesium 1.7 (1.6-2.3) mg/dL Total Bilirubin 0.7 (0.2-1.3) mg/dL AST 28 (17-59) U/L ALT 17 L (21-72) U/L Alkaline Phosphatase 121 (38-126) U/L Total Protein 6.5 (6.3-8.3) g/dL Albumin 2.6 L (3.5-5.0) g/dL Globulin 3.9 (2.2-3.9) gm/dL Albumin/Globulin Ratio 0.7 L (1.0-2.1) TB Test (QFT) Nil IU/mL TB Test Mitogen - Nil IU/mL TB Test TB - Nil IU/mL TB Test (QFT) (Negative) 11/05/16 11/05/16 11/04/16 Range/Units 07:32 02:17 21:06 WBC (4.8-10.8) K/uL RBC (4.40-5.90) Mil/uL Hgb (12.0-18.0) g/dL Hct (35.0-51.0) % MCV (80.0-94.0) fL MCH (27.0-31.0) pg MCHC (33.0-37.0) g/dL RDW (11.5-14.5) % Plt Count (130-400) K/uL MPV (7.2-11.7) fL Neut % (Auto) (50.0-75.0) % Lymph % (Auto) (20.0-40.0) % Page % (Auto) (0.0-10.0) % Eos % (Auto) (0.0-4.0) % Baso % (Auto) (0.0-2.0) % Neut # (1.8-7.0) K/uL Lymph # (1.0-4.3) K/uL Page # (0.0-0.8) K/uL Eos # (0.0-0.7) K/uL Baso # (0.0-0.2) K/uL Differential Comment Retic Count (0.5-1.5) % Sodium (132-148) mmol/L Potassium (3.6-5.2) mmol/L Chloride (98-107) mmol/L Carbon Dioxide (22-30) mmol/L Anion Gap (10-20) BUN (9-20) mg/dL Creatinine (0.8-1.5) MG/DL Est GFR ( Amer) Est GFR (Non-Af Amer) POC Glucose (mg/dL) 273 H 356 H 327 H (65-110) mg/dL Random Glucose (75-110) mg/dL Calcium (8.6-10.4) mg/dl Phosphorus (2.5-4.5) mg/dL Magnesium (1.6-2.3) mg/dL Total Bilirubin (0.2-1.3) mg/dL AST (17-59) U/L ALT (21-72) U/L Alkaline Phosphatase (38-126) U/L Total Protein (6.3-8.3) g/dL Albumin (3.5-5.0) g/dL Globulin (2.2-3.9) gm/dL Albumin/Globulin Ratio (1.0-2.1) TB Test (QFT) Nil IU/mL TB Test Mitogen - Nil IU/mL TB Test TB - Nil IU/mL TB Test (QFT) (Negative) 11/04/16 11/03/16 Range/Units 16:23 07:16 WBC (4.8-10.8) K/uL RBC (4.40-5.90) Mil/uL Hgb (12.0-18.0) g/dL Hct (35.0-51.0) % MCV (80.0-94.0) fL MCH (27.0-31.0) pg MCHC (33.0-37.0) g/dL RDW (11.5-14.5) % Plt Count (130-400) K/uL MPV (7.2-11.7) fL Neut % (Auto) (50.0-75.0) % Lymph % (Auto) (20.0-40.0) % Page % (Auto) (0.0-10.0) % Eos % (Auto) (0.0-4.0) % Baso % (Auto) (0.0-2.0) % Neut # (1.8-7.0) K/uL Lymph # (1.0-4.3) K/uL Page # (0.0-0.8) K/uL Eos # (0.0-0.7) K/uL Baso # (0.0-0.2) K/uL Differential Comment Retic Count (0.5-1.5) % Sodium (132-148) mmol/L Potassium (3.6-5.2) mmol/L Chloride (98-107) mmol/L Carbon Dioxide (22-30) mmol/L Anion Gap (10-20) BUN (9-20) mg/dL Creatinine (0.8-1.5) MG/DL Est GFR ( Amer) Est GFR (Non-Af Amer) POC Glucose (mg/dL) 309 H (65-110) mg/dL Random Glucose (75-110) mg/dL Calcium (8.6-10.4) mg/dl Phosphorus (2.5-4.5) mg/dL Magnesium (1.6-2.3) mg/dL Total Bilirubin (0.2-1.3) mg/dL AST (17-59) U/L ALT (21-72) U/L Alkaline Phosphatase (38-126) U/L Total Protein (6.3-8.3) g/dL Albumin (3.5-5.0) g/dL Globulin (2.2-3.9) gm/dL Albumin/Globulin Ratio (1.0-2.1) TB Test (QFT) Nil 0.04 IU/mL TB Test Mitogen - Nil 0.27 IU/mL TB Test TB - Nil 0.00 IU/mL TB Test (QFT) Indeterminate H (Negative) Laboratory Results - last 24 hr 11/03/16 11/04/16 11/04/16 07:16 16:23 21:06 WBC RBC Hgb Hct MCV MCH MCHC RDW Plt Count MPV Neut % (Auto) Lymph % (Auto) Page % (Auto) Eos % (Auto) Baso % (Auto) Neut # Lymph # Page # Eos # Baso # Differential Comment Retic Count Sodium Potassium Chloride Carbon Dioxide Anion Gap BUN Creatinine Est GFR ( Amer) Est GFR (Non-Af Amer) POC Glucose (mg/dL) 309 H 327 H Random Glucose Calcium Phosphorus Magnesium Total Bilirubin AST ALT Alkaline Phosphatase Total Protein Albumin Globulin Albumin/Globulin Ratio TB Test (QFT) Nil 0.04 TB Test Mitogen - Nil 0.27 TB Test TB - Nil 0.00 TB Test (QFT) Indeterminate H 11/05/16 11/05/16 11/05/16 02:17 07:32 07:56 WBC 15.7 H D RBC 3.41 L Hgb 9.4 L Hct 29.2 L MCV 85.8 MCH 27.5 MCHC 32.1 L RDW 14.4 Plt Count 390 D MPV 9.8 Neut % (Auto) 79.2 H Lymph % (Auto) 10.9 L Page % (Auto) 8.7 Eos % (Auto) 0.9 Baso % (Auto) 0.3 Neut # 12.4 H Lymph # 1.7 Page # 1.4 H Eos # 0.1 Baso # 0.0 Differential Comment Retic Count 2.7 H Sodium Potassium Chloride Carbon Dioxide Anion Gap BUN Creatinine Est GFR ( Amer) Est GFR (Non-Af Amer) POC Glucose (mg/dL) 356 H 273 H Random Glucose Calcium Phosphorus Magnesium Total Bilirubin AST ALT Alkaline Phosphatase Total Protein Albumin Globulin Albumin/Globulin Ratio TB Test (QFT) Nil TB Test Mitogen - Nil TB Test TB - Nil TB Test (QFT) 11/05/16 11/05/16 09:04 11:29 WBC RBC Hgb Hct MCV MCH MCHC RDW Plt Count MPV Neut % (Auto) Lymph % (Auto) Page % (Auto) Eos % (Auto) Baso % (Auto) Neut # Lymph # Page # Eos # Baso # Differential Comment Retic Count Sodium 121 L Potassium 3.9 Chloride 89 L Carbon Dioxide 22 Anion Gap 14 BUN 14 Creatinine 0.7 L Est GFR ( Amer) > 60 Est GFR (Non-Af Amer) > 60 POC Glucose (mg/dL) 390 H Random Glucose 330 H Calcium 7.6 L Phosphorus 3.4 Magnesium 1.7 Total Bilirubin 0.7 AST 28 ALT 17 L Alkaline Phosphatase 121 Total Protein 6.5 Albumin 2.6 L Globulin 3.9 Albumin/Globulin Ratio 0.7 L TB Test (QFT) Nil TB Test Mitogen - Nil TB Test TB - Nil TB Test (QFT) Fingerstick Blood Sugar Results: 273 Review of Systems - Review of Systems All systems: reviewed and no additional remarkable complaints except - Respiratory Additional comments: Pain at surgical site. Critical Care Progress Note - Nutrition Nutrition: Nutrition Category Date Time Status Consistent Carbohydrate [DIET] Diets 11/03/16 Dinner Active Assessment/Plan (1) Empyema Assessment and plan: 40M with PMHx of HTN, DM with a recent admission for pneumonia presents to the ED with SOB with a right sided pleural effusion on CT. (1) Empyema CT surgery (Dr. Villagomez) on board Infectious disease (Dr. East) on board Hx of influenza (10/02/16) Primaxin 500mg IV Q 6hout (active since 11/02/16) Telavancin 750mg IV Q24 hours (active since 11/02/16) Stopped Morphine [employer], Percocet 2 tab PO Q6H prn - patient's pain is only mild and he did not like that the morphine was knocking him out. pending fluid studies Chest Xray (11/03/16): history of right thoracotomy-no gross resection of a rib appreciated. Extensive opacities overlying the mid right hemithorax. No pneumothorax seen. No mediastinal shift noed. Right pleural parenchymal opacity consistent w residual right loculated pleural fluid and probably pulmonary coalsecent interstitial edema. Chest CT (11/02/16): No CT evidence for acute pulmonary embolism. Large right pleural effusion with compressive atelectasis in the lower love. Superimposed pneumonia cannot be excluded. Follow-up advised. Operative note: VATS coverted to thoractomy, parietal pleurectomy, decortication, wedge resection of right lower love. Evacuation of empyema and fibrous exudate (given PRBC during OR)-->2 chest tubes pending GC/Quantiferon Aeronic, anaerobic, Blood culture, fungus culture, AFB, gram stain, mycobacterium, tissue culture collected Echo (11/02/16): EF: 65% (official report available in the EMR) Chest tube #1 ouput: 350cc/24 CT#2 output:300cc/24. (2) Pleural effusion on right (3) Pneumonia Primaxin 500mg IVQ 6hour (active since 11/02/16) Telavancin 750mg IV Q24 hours (active since 11/02/16) Infectious disease (Dr. East) on board Negative legionella (4) Diabetes Increased Levemir 60 units subqHS Lisinopril 20mg PO dailu Metoprolol tarate 50mg PO Q 12hour Novolog sliding scale subq Accuchecks q6 hours Uncontrolled; a1c: 11.6 (10/16/16) T Chol: 208 LDL:106 HDL:38 (5) Hypertension Lisinopril 20mg PO daily Metoprolol 50mg PO Q 12hours (6) Anemia Negative stool occult blood Ordered for iron- low, TIBC - low , %iron saturation, folate- wnl, B12- wnl, reticulocyte count- high 3.0 Hep and HIV negative Note: patient is post OR POD#1 (5) Prophylactic care Pepcid 20mg PO daily for GI ppx Colace 100mg PO bid (6) hyponatremia with hypochloremia Sent off urine sodium and urine creatinine, calculate a fractional excretion of sodium Started patient on NS@ 60 mL an hour Current Visit: Yes Status: Acute
[2016-11-05 14:33] LABS: CREATININE, RANDOM URINE 55.5 mg/dL
[2016-11-05] MEDS: Telavancin Hydrochloride 750 MG in Sodium Chloride 0.9% 100 ML IVPB SCH (18:05)
[2016-11-05] MEDS: Insulin Detemir 100 units/ml Vial (Levemir) SC SCH (21:03)
--- NOTE | 2016-11-05 22:32 | PN ---
DATE: 11/05/2016 LOCATION: ICU/CCU bed 15. SUBJECTIVE: The patient admitted under the service of Dr. Hernandez. Chart reviewed. Case discussed with staff. Examination is documented. The patient is status post VAT and open thoracotomy for an empyema, right-sided empyema that he has had, nonresponsive to previous hospitalization and outpatient treatment plan. 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 PHYSICAL EXAMINATION: VITALS: Temperature is 98.7, pulse is 112, blood pressure is 100/68. LUNGS: Decreased breath sounds, pleuritic pain, chest tubes. ABDOMEN: Moving his bowels with some discomfort has been appreciated. LABORATORY VALUES: Of note, the last hemoglobin A1C, which is not available for today, which was done earlier in October, was over 11.8-11.9, showing the diabetes out of control. He is on telavancin and Imipenam/cilastatin at an attempt to control the severe empyema and diffuse infection in his right lung. Finally, with surgery, transfusions, IV antibiotics, and, most importantly, control of his blood sugars, his white count is showing a responsive 15,700, hemoglobin 9.5, platelets 390. His blood sugars have been over 427 today. Creatinine are 0.7. They have had to increase the Levemir from 30 to 60 in an attempt to try and control his uncontrolled diabetes that he came in with and that, apparently, he has had over the past month. This has made him an immunocompromised host in the true sense of the word. Will continue to use the telavancin and the Primaxin pending any cultures in an attempt, and I emphasize that, in an attempt, to focus and possibly de-escalate treatment plan; though, this may be difficult since he has failed both outpatient, inpatient, and outpatient therapy again. Continue treatment, control his blood sugar and, maybe then, we will be able to have a response to the antibiosis that is being focused and managed for the severe empyema that he had. Rona East MD cc: [id number] TT: 11/05/2016 22:31:43 Confirmation # [id number] Dictation # [id number] berenice ORTIZ
[2016-11-06] MEDS: Albuterol-Ipratrop 3 mg / 0.5 (3 ml) UD INH SCH ×4 (01:16→19:07)
[2016-11-06] MEDS: Sodium Chloride 0.9% 1,000 ML IV SCH ×3 (02:55→19:48)
[2016-11-06 07:27] LABS: BASO % 0.2 % (0.0-2.0); EOS # 0.1 K/uL (0.0-0.7); EOS % 0.9 % (0.0-4.0); HEMATOCRIT 23.5 % (35.0-51.0); LYMPH # 0.9 K/uL (1.0-4.3); LYMPH % 14.6 % (20.0-40.0); MEAN CELL VOLUME 84.9 fL (80.0-94.0); MEAN CORPUSCULAR HEMOGLOBIN 27.8 pg (27.0-31.0); MEAN CORPUSCULAR HGB CONC 32.7 g/dL (33.0-37.0); MEAN PLATELET VOLUME 8.7 fL (7.2-11.7); MONO # 0.6 K/uL (0.0-0.8); MONO % 10.5 % (0.0-10.0); RED CELL DISTRIBUTION WIDTH 14.4 % (11.5-14.5)
[2016-11-06] MEDS: (Novolog) Insulin Aspart, Recombinant 100 u/ml 10 ml vial SC SCH ×4 (07:45→21:49)
[2016-11-06 07:47] LABS: CHLORIDE 95 mmol/L (98-107); POTASSIUM 3.6 mmol/L (3.6-5.2); SODIUM 129 mmol/L (132-148)
[2016-11-06 07:49] LABS: AST/SGOT 19 U/L (17-59); BILIRUBIN,TOTAL 0.6 mg/dL (0.2-1.3); CARBON DIOXIDE 24 mmol/L (22-30); GFR AFRICAN-AMERICAN > 60
[2016-11-06 07:50] LABS: ALB/GLOB RATIO 0.7 (1.0-2.1); ALKALINE PHOSPHATASE 98 U/L (38-126); ALT/SGPT 28 U/L (21-72); BLOOD UREA NITROGEN 11 mg/dL (9-20); CALCIUM 7.9 mg/dl (8.6-10.4); GLUCOSE,RANDOM 219 mg/dL (75-110); PHOSPHOROUS 3.8 mg/dL (2.5-4.5); TOTAL PROTEIN 6.6 g/dL (6.3-8.3)
[2016-11-06 07:51] LABS: MAGNESIUM 2.2 mg/dL (1.6-2.3)
--- NOTE | 2016-11-06 08:04 | CP.PCM.PN ---
Subjective - Date & Time of Evaluation Date of Evaluation: 11/06/16 Time of Evaluation: 08:00 - Subjective Subjective: Medical attending Note Follow-up: empyema, pleural effusion, pneumonia, history of influenza, anemia ( requiring blood transfusion), uncontrolled diabetes Patient seen, examined at bedside. Patient reports he had 2 Bowel movements yesterday after given Colace. Patient reports he is urinating. Patient reporting pleuritic chest pain with associated wet cough. Patient denies fever, denies chills, chest pain, denies abdominal pain, denies nausea, denies vomiting. Repeat CBC this morning given drop in hemoglobin. Patient has required blood transfusion day of OR. Chest tube 1: 140 ML output Chest tube 2: 40 ML output Over 24 hours Objective - Vital Signs/Intake and Output Vital Signs (last 24 hours): Temp Pulse Resp BP Pulse Ox 99.1 F 98 H 24 128/70 97 11/06/16 04:00 11/06/16 07:02 11/06/16 07:02 11/06/16 07:02 11/06/16 07:02 Intake and Output: 11/06/16 11/06/16 06:59 18:59 Intake Total 1700 100 Output Total 1400 120 Balance 300 -20 - Medications Medications: Current Medications Albuterol/Ipratropium (Duoneb 3 Mg/0.5 Mg (3 Ml) Ud) 3 ml INH RQ6 [facility] Last Admin: 11/06/16 07:29 Dose: 3 ml Docusate Sodium (Colace) 100 mg PO BID [facility] Last Admin: 11/05/16 17:02 Dose: Not Given Enoxaparin Sodium (Lovenox) 40 mg SC DAILY [facility] Last Admin: 11/05/16 10:48 Dose: 40 mg Famotidine (Pepcid) 20 mg PO DAILY [facility] Last Admin: 11/05/16 09:13 Dose: 20 mg Guaifenesin (Mucinex La) 600 mg PO BID [facility] Imipenem/Cilastatin Sodium 500 (mg/ Sodium Chloride) 100 mls @ 100 mls/hr IVPB Q6H [facility] Last Admin: 11/06/16 05:47 Dose: 100 mls/hr Telavancin 750 mg/ Sodium (Chloride) 100 mls @ 100 mls/hr IVPB Q24H [facility] Last Admin: 11/05/16 18:05 Dose: 100 mls/hr Sodium Chloride (Sodium Chloride 0.9%) 1,000 mls @ 60 mls/hr IV .[id number] [facility] Last Admin: 11/06/16 02:55 Dose: Not Given Insulin Aspart (Novolog) 0 unit SC ACHS [facility] PRN Reason: Protocol Last Admin: 11/06/16 07:45 Dose: 6 unit Insulin Detemir (Levemir) 60 unit SC HS [facility] Last Admin: 11/05/16 21:03 Dose: 60 unit Lisinopril (Zestril) 20 mg PO DAILY [facility] Last Admin: 11/05/16 10:48 Dose: 20 mg Metoprolol Tartrate (Lopressor) 50 mg PO Q12H [facility] Last Admin: 11/06/16 07:45 Dose: 50 mg Oxycodone/Acetaminophen (Percocet 5/325 Mg Tab) 2 tab PO Q6H PRN PRN Reason: Pain, moderate (4-7) Stop: 11/10/16 08:46 Last Admin: 11/05/16 23:10 Dose: 2 tab Promethazine HCl/Codeine (Phenergan/Codeine Oral Syrup) 5 ml PO Q4 PRN PRN Reason: Cough Saccharomyces Boulardii (Florastor) 250 mg PO BID [facility] Last Admin: 11/05/16 17:22 Dose: 250 mg - Labs Labs: 11/06/16 07:18 11/06/16 07:18 PT 15.2 SECONDS (9.7-12.2) H 11/03/16 08:05 INR 1.3 11/03/16 08:05 APTT 32 SECONDS (21-34) 11/03/16 08:05 - Constitutional Appears: Non-toxic, No Acute Distress - Head Exam Head Exam: NORMAL INSPECTION - Eye Exam Eye Exam: EOMI - ENT Exam ENT Exam: Mucous Membranes Dry - Respiratory Exam Respiratory Exam: NORMAL BREATHING PATTERN. absent: Decreased Breath Sounds, Rales, Respiratory Distress Additional comments: good air exchange chest tubes (right side): #1 170ml; #2 40 ml (24 hours) - Cardiovascular Exam Cardiovascular Exam: REGULAR RHYTHM, +S1, +S2 - GI/Abdominal Exam GI & Abdominal Exam: Soft, Normal Bowel Sounds. absent: Distended, Firm, Guarding, Rigid, Tenderness, Rebound - Extremities Exam Extremities Exam: absent: Pedal Edema, Tenderness - Back Exam Back Exam: absent: CVA tenderness (L), CVA tenderness (R) - Neurological Exam Neurological Exam: Alert, Awake, Oriented x3 - Psychiatric Exam Psychiatric exam: Normal Affect, Normal Mood - Skin Skin Exam: Dry, Normal Color, Warm Assessment and Plan (1) Empyema Status: Acute (2) Pleural effusion on right Status: Acute (3) Pneumonia Status: Acute (4) Influenza Status: Acute (5) Diabetes mellitus Status: Chronic (6) HTN (hypertension) Status: Chronic (7) Hyponatremia Status: Acute (8) Prophylactic measure Status: Acute - Assessment and Plan (Free Text) Assessment: (1) Empyema Assessment and Plan: * CT surgery (Dr. Villagomez) on board * Infectious disease (Dr. East) on board * Hx of influenza (10/02/16) * Primaxin 500mg IV Q 6hout (active since 11/02/16) * Telavancin 750mg IV Q24 hours (active since 11/02/16) * Chest Xray (11/03/16): history of right thoracotomy-no gross resection of a rib appreciated. Extensive opacities overlying the mid right hemithorax. No pneumothorax seen. No mediastinal shift noed. Right pleural parenchymal opacity consistent w residual right loculated pleural fluid and probably pulmonary coalsecent interstitial edema. * Chest Xray (11/04/16): no significant interval change * Chest CT (11/02/16): No CT evidence for acute pulmonary embolism. Large right pleural effusion with compressive atelectasis in the lower love. Superimposed pneumonia cannot be excluded. Follow-up advised. * Operative note: VATS coverted to thoractomy, parietal pleurectomy, decortication, wedge resection of right lower love. Evacuation of empyema and fibrous exudate (given PRBC during OR)-->2 chest tubes; monitor outputs * Aerboic, anaerobic: no growth, Blood culture: No growth thus far, fungus culture: no elements, AFB, gram stain: gram positive cocci, many PMNs, mycobacterium, tissue culture: no growth * Echo (11/02/16): EF: 65% (official report available in the EMR) * Negative Hepatitis panel, negative HIV * Fluid studies: elevated WBC; all cells are deteriorated * Pending official chest xray 11/06; improving compared to 11/04 chest xray * Chest tubes continue to drain Status: Acute (2) Pleural effusion on right Status: Acute (3) Pneumonia Assessment and Plan: * Primaxin 500mg IVQ 6hour (active since 11/02/16) * Telavancin 750mg IV Q24 hours (active since 11/02/16) * Infectious disease (Dr. East) on board * Negative legionella, negative mycoplasma IgM, negative Strep, negative HIV, negative hepatitis * Florastor 250mg PO bid * Phenergan codeine 5ml PO Q 4hour PRN cough * Mucinex 600mg PO bid * pending chylamdia studies * indeterminate quantaferon * Dr. Andino (covering Dr. Hernandez) for pulmonary Status: Acute (4) Diabetes * Levemir 60 units subqHS * Lisinopril 20mg PO daily * Metoprolol tarate 50mg PO Q 12hour * Novolog sliding scale subq * Accuchecks q6 hours * Uncontrolled; a1c: 11.6 (10/16/16) * T Chol: 208 LDL:106 HDL:38 Status: Chronic (5) Hypertension * Lisinopril 20mg PO daily * Metoprolol 50mg PO Q 12hours (6) Anemia * Negative stool occult blood * ordered for Low iron, TIBC, normal %iron saturation, normal folate, normal B12 , increased reticulocyte count-->will need iron supplementation * Note: patient is post OR POD 3 * Repeat CBC this morning-->may require blood transfusion (7) Hyponatremia * improving (8) Prophylactic care * Pepcid 20mg PO daily for GI ppx * Lovenox 40mg subqdaily * Colace 100mg PO bid * Florastor 250mg PO bid * Percocet 2 tab PO Q 6hour PRN pain
--- NOTE | 2016-11-06 08:05 | CP.PCM.PN ---
Subjective - Date & Time of Evaluation Date of Evaluation: 11/06/16 Time of Evaluation: 07:55 - Subjective Subjective: less tachycardic bp stable Objective - Vital Signs/Intake and Output Vital Signs (last 24 hours): Temp Pulse Resp BP Pulse Ox 99.1 F 98 H 24 128/70 97 11/06/16 04:00 11/06/16 07:02 11/06/16 07:02 11/06/16 07:02 11/06/16 07:02 Intake and Output: 11/06/16 11/06/16 06:59 18:59 Intake Total 1700 100 Output Total 1400 120 Balance 300 -20 - Medications Medications: Current Medications Albuterol/Ipratropium (Duoneb 3 Mg/0.5 Mg (3 Ml) Ud) 3 ml INH RQ6 [facility] Last Admin: 11/06/16 07:29 Dose: 3 ml Docusate Sodium (Colace) 100 mg PO BID [facility] Last Admin: 11/05/16 17:02 Dose: Not Given Enoxaparin Sodium (Lovenox) 40 mg SC DAILY [facility] Last Admin: 11/05/16 10:48 Dose: 40 mg Famotidine (Pepcid) 20 mg PO DAILY [facility] Last Admin: 11/05/16 09:13 Dose: 20 mg Guaifenesin (Mucinex La) 600 mg PO BID [facility] Imipenem/Cilastatin Sodium 500 (mg/ Sodium Chloride) 100 mls @ 100 mls/hr IVPB Q6H [facility] Last Admin: 11/06/16 05:47 Dose: 100 mls/hr Telavancin 750 mg/ Sodium (Chloride) 100 mls @ 100 mls/hr IVPB Q24H [facility] Last Admin: 11/05/16 18:05 Dose: 100 mls/hr Sodium Chloride (Sodium Chloride 0.9%) 1,000 mls @ 60 mls/hr IV .[id number] [facility] Last Admin: 11/06/16 02:55 Dose: Not Given Insulin Aspart (Novolog) 0 unit SC ACHS [facility] PRN Reason: Protocol Last Admin: 11/06/16 07:45 Dose: 6 unit Insulin Detemir (Levemir) 60 unit SC HS [facility] Last Admin: 11/05/16 21:03 Dose: 60 unit Lisinopril (Zestril) 20 mg PO DAILY [facility] Last Admin: 11/05/16 10:48 Dose: 20 mg Metoprolol Tartrate (Lopressor) 50 mg PO Q12H [facility] Last Admin: 11/06/16 07:45 Dose: 50 mg Oxycodone/Acetaminophen (Percocet 5/325 Mg Tab) 2 tab PO Q6H PRN PRN Reason: Pain, moderate (4-7) Stop: 11/10/16 08:46 Last Admin: 11/05/16 23:10 Dose: 2 tab Promethazine HCl/Codeine (Phenergan/Codeine Oral Syrup) 5 ml PO Q4 PRN PRN Reason: Cough Saccharomyces Boulardii (Florastor) 250 mg PO BID [facility] Last Admin: 11/05/16 17:22 Dose: 250 mg - Labs Labs: 11/06/16 07:18 11/06/16 07:18 PT 15.2 SECONDS (9.7-12.2) H 11/03/16 08:05 INR 1.3 11/03/16 08:05 APTT 32 SECONDS (21-34) 11/03/16 08:05 - Constitutional Appears: Well, No Acute Distress - Head Exam Head Exam: ATRAUMATIC, NORMOCEPHALIC - Eye Exam Eye Exam: Normal appearance - ENT Exam ENT Exam: Mucous Membranes Moist - Respiratory Exam Respiratory Exam: Clear to Ausculation Bilateral, NORMAL BREATHING PATTERN - Cardiovascular Exam Cardiovascular Exam: REGULAR RHYTHM - GI/Abdominal Exam GI & Abdominal Exam: Soft, Normal Bowel Sounds - Exam External exam: NORMAL EXTERNAL EXAM - Extremities Exam Extremities Exam: Pedal Edema - Neurological Exam Neurological Exam: Alert - Psychiatric Exam Psychiatric exam: Depressed - Skin Skin Exam: Warm Assessment and Plan (1) Tachycardia Assessment & Plan: Treat underlying cause bp stab;e dvt prophylaxis Status: Resolved
[2016-11-06 08:27] LABS: BASO % 0.5 % (0.0-2.0); EOS # 0.1 K/uL (0.0-0.7); EOS % 0.9 % (0.0-4.0); HEMATOCRIT 23.9 % (35.0-51.0); LYMPH % 15.4 % (20.0-40.0); MEAN CELL VOLUME 84.9 fL (80.0-94.0); MEAN CORPUSCULAR HEMOGLOBIN 27.8 pg (27.0-31.0); MEAN CORPUSCULAR HGB CONC 32.7 g/dL (33.0-37.0); MEAN PLATELET VOLUME 9.4 fL (7.2-11.7); MONO # 0.6 K/uL (0.0-0.8); MONO % 9.3 % (0.0-10.0); NRBC % 0.1 % (0.0-2.0); RED CELL DISTRIBUTION WIDTH 14.4 % (11.5-14.5); WHITE BLOOD COUNT 6.4 K/uL (4.8-10.8)
[2016-11-06] MEDS: Saccharomyces Boulardi 250 mg Cap PO SCH ×2 (09:08→17:12)
[2016-11-06] MEDS: guaiFENesin 600 mg ER Tab PO SCH ×2 (09:08→17:12)
--- NOTE | 2016-11-06 10:05 | CP.PCM.PN ---
Subjective - Date & Time of Evaluation Date of Evaluation: 11/06/16 Time of Evaluation: 10:01 - Subjective Subjective: Thoracic Surgery - Dr. Villagomez Pt S&E. NIKOLAI. Pt complains of Pain in the R chest, states pain medication adjusted and not controlling pain currently, will adjust. Pt denies any SOB. He is OOB to chair. R CT #1 -200cc/24hrs, #2- 50cc/24hrs serosanguinous. No airleak. Dressing changed, C/D/I. Objective - Vital Signs/Intake and Output Vital Signs (last 24 hours): Temp Pulse Resp BP Pulse Ox 97.8 F 103 H 21 148/76 97 11/06/16 08:00 11/06/16 08:02 11/06/16 08:02 11/06/16 08:02 11/06/16 08:02 Intake and Output: 11/06/16 11/06/16 06:59 18:59 Intake Total 1700 460 Output Total 1400 770 Balance 300 -310 - Medications Medications: Current Medications Albuterol/Ipratropium (Duoneb 3 Mg/0.5 Mg (3 Ml) Ud) 3 ml INH RQ6 [facility] Last Admin: 11/06/16 07:29 Dose: 3 ml Docusate Sodium (Colace) 100 mg PO BID [facility] Last Admin: 11/06/16 09:08 Dose: 100 mg Enoxaparin Sodium (Lovenox) 40 mg SC DAILY [facility] Last Admin: 11/05/16 10:48 Dose: 40 mg Famotidine (Pepcid) 20 mg PO DAILY [facility] Last Admin: 11/06/16 09:08 Dose: 20 mg Guaifenesin (Mucinex La) 600 mg PO BID [facility] Last Admin: 11/06/16 09:08 Dose: 600 mg Imipenem/Cilastatin Sodium 500 (mg/ Sodium Chloride) 100 mls @ 100 mls/hr IVPB Q6H [facility] Last Admin: 11/06/16 05:47 Dose: 100 mls/hr Telavancin 750 mg/ Sodium (Chloride) 100 mls @ 100 mls/hr IVPB Q24H [facility] Last Admin: 11/05/16 18:05 Dose: 100 mls/hr Sodium Chloride (Sodium Chloride 0.9%) 1,000 mls @ 60 mls/hr IV .[id number] [facility] Last Admin: 11/06/16 08:39 Dose: 60 mls/hr Insulin Aspart (Novolog) 0 unit SC ACHS [facility] PRN Reason: Protocol Last Admin: 11/06/16 07:45 Dose: 6 unit Insulin Detemir (Levemir) 60 unit SC HS [facility] Last Admin: 11/05/16 21:03 Dose: 60 unit Lisinopril (Zestril) 20 mg PO DAILY [facility] Last Admin: 11/06/16 09:08 Dose: 20 mg Metoprolol Tartrate (Lopressor) 50 mg PO Q12H [facility] Last Admin: 11/06/16 07:45 Dose: 50 mg Oxycodone/Acetaminophen (Percocet 5/325 Mg Tab) 2 tab PO Q6H PRN PRN Reason: Pain, moderate (4-7) Stop: 11/10/16 08:46 Last Admin: 11/05/16 23:10 Dose: 2 tab Promethazine HCl/Codeine (Phenergan/Codeine Oral Syrup) 5 ml PO Q4 PRN PRN Reason: Cough Saccharomyces Boulardii (Florastor) 250 mg PO BID [facility] Last Admin: 11/06/16 09:08 Dose: 250 mg - Labs Labs: 11/06/16 08:19 11/06/16 07:18 PT 15.2 SECONDS (9.7-12.2) H 11/03/16 08:05 INR 1.3 11/03/16 08:05 APTT 32 SECONDS (21-34) 11/03/16 08:05 - Constitutional Appears: No Acute Distress - Head Exam Head Exam: ATRAUMATIC, NORMAL INSPECTION, NORMOCEPHALIC - Respiratory Exam Respiratory Exam: NORMAL BREATHING PATTERN. absent: Respiratory Distress Additional comments: R CT x2 - see subjective - Neurological Exam Neurological Exam: Alert, Oriented x3 - Psychiatric Exam Psychiatric exam: Normal Affect, Normal Mood - Skin Skin Exam: Dry, Intact Assessment and Plan - Assessment and Plan (Free Text) Assessment: 40M w/ Right lung empyema s/p VATS converted to thoracotomy w/ decortication, parietal pleurectomy, and RLL wedge resection POD #3 -CXR stable -Continue CTs to wall suction, monitor output -Daily dressing change -Encourage OOB and Incentive Spirometer DW Dr. Hernando Neff PGY2
[2016-11-06] MEDS: Enoxaparin 40 mg Syringe SC SCH (10:35)
[2016-11-06] MEDS: Oxycodone/Acetaminophen 5/325 mg Tab PO PRN ×2 (10:37→21:48)
--- NOTE | 2016-11-06 11:57 | RAD ---
HISTORY: s/p thoracotomy and chest tube insertion x2 COMPARISON: Chest x-ray performed 11/05/16 TECHNIQUE: Chest, one view. FINDINGS: Examination limited by habitus. Two right-sided chest tubes. LUNGS: No significant interval change in small to moderate right-sided pleural effusion and mild decreased in hazy/ patchy airspace opacities involving the right radha thorax. No definite pneumothorax. Please note that chest x-ray has limited sensitivity for the detection of pulmonary masses. CARDIOVASCULAR: Cardiomegaly. OSSEOUS STRUCTURES: No acute osseous abnormality identified. VISUALIZED UPPER ABDOMEN: Unremarkable. OTHER FINDINGS: None. IMPRESSION: Two right-sided chest tubes. No significant interval change in small to moderate right-sided pleural effusion and mild decreased in hazy/ patchy airspace opacities involving the right radha thorax.
--- NOTE | 2016-11-06 12:10 | CP.CCUPN ---
CCU Objective - Vital Signs / Intake & Output Vital Signs (Last 4 hours): Vital Signs Pulse Resp BP Pulse Ox 11/06/16 10:32 89 31 H 107/65 98 11/06/16 10:30 87 22 97 11/06/16 10:02 88 15 116/65 97 11/06/16 10:00 88 12 98 11/06/16 09:32 89 28 H 125/67 98 11/06/16 09:30 90 23 97 11/06/16 09:03 91 H 26 H 118/68 97 11/06/16 09:00 94 H 20 97 11/06/16 08:33 100 H 22 139/85 96 11/06/16 08:30 100 H 21 95 Intake and Output (Last 8hrs): Intake & Output 11/05/16 11/06/16 11/06/16 22:59 06:59 14:59 Intake Total 940 1280 740 Output Total 490 1000 1070 Balance 450 280 -330 Intake: Intake, IV Amount 620 520 340 Right Upper arm 60 y port,rt upper arm 560 520 340 Oral 320 760 400 Output: Chest Tube Drainage 90 120 Right Mid-Axillary Chest 80 90 Right Mid-Axillary Chest 10 30 #2 Urine 400 1000 950 Urine, Voided 400 1000 950 Stool 0 Other: # Bowel Movements 0 0 1 - Physical Exam Head: Positive for: Atraumatic, Normocephalic Pupils: Positive for: PERRL Extroacular Muscles: Positive for: EOMI Conjunctiva: Positive for: Normal Mouth: Positive for: Moist Mucous Membranes Respiratory/Chest: Positive for: Decreased Breath Sounds, Other (on BIPAP). Negative for: Respiratory Distress, Accessory Muscle Use Cardiovascular: Positive for: Regular Rate and Rhythm, Normal S1, S2, Other (2 chest tubes, right sided ) Abdomen: Positive for: Normal Bowel Sounds. Negative for: Tenderness, Distention Upper Extremity: Positive for: Normal Inspection, Normal ROM, NORMAL PULSES. Negative for: Cyanosis, Edema Lower Extremity: Positive for: Normal Inspection, NORMAL PULSES. Negative for: Edema, CALF TENDERNESS Neurological: Positive for: GCS=15, CN II-XII Intact Skin: Positive for: Warm, Dry, Normal Color - Medications Active Medications: Active Medications Generic Name Dose Route Start Last Admin Trade Name Freq PRN Reason Stop Dose Admin Albuterol/Ipratropium 3 ml 11/05/16 14:00 04/30/17 07:29 Duoneb 3 Mg/0.5 Mg (3 Ml) Ud INH 3 ml RQ6 SHANNON Administration Docusate Sodium 100 mg 11/02/16 18:00 11/06/16 09:08 Colace PO 100 mg BID SHANNON Administration Enoxaparin Sodium 40 mg 11/05/16 10:30 11/06/16 10:35 Lovenox SC 40 mg DAILY SHANNON Administration Famotidine 20 mg 11/02/16 10:00 11/06/16 09:08 Pepcid PO 20 mg DAILY SHANNON Administration Guaifenesin 600 mg 11/06/16 10:00 11/06/16 09:08 Mucinex La PO 600 mg BID SHANNON Administration Imipenem/Cilastatin Sodium 500 100 mls @ 100 mls/hr 11/02/16 18:00 11/06/16 11:25 mg/ Sodium Chloride IVPB 100 mls/hr Q6H SHANNON Administration Telavancin 750 mg/ Sodium 100 mls @ 100 mls/hr 11/02/16 19:00 11/05/16 18:05 Chloride IVPB 100 mls/hr Q24H SHANNON Administration Sodium Chloride 1,000 mls @ 60 mls/hr 11/05/16 10:15 11/06/16 08:39 Sodium Chloride 0.9% IV 60 mls/hr .[id number] SHANNON Administration Insulin Aspart 0 unit 11/02/16 07:30 11/06/16 11:32 Novolog SC 10 unit ACHS SHANNON Administration Protocol Insulin Detemir 60 unit 11/05/16 10:23 11/05/16 21:03 Levemir SC 60 unit HS SHANNON Administration Lisinopril 20 mg 11/02/16 10:00 11/06/16 09:08 Zestril PO 20 mg DAILY SHANNON Administration Metoprolol Tartrate 50 mg 11/03/16 08:45 11/06/16 07:45 Lopressor PO 50 mg Q12H SHANNON Administration Morphine Sulfate 4 mg 11/06/16 10:06 Morphine IVP Q4 PRN Pain, moderate (4-7) Oxycodone/Acetaminophen 2 tab 11/05/16 10:17 11/06/16 10:37 Percocet 5/325 Mg Tab PO 11/10/16 08:46 2 tab Q6H PRN Administration Pain, moderate (4-7) Promethazine HCl/Codeine 5 ml 11/06/16 07:57 Phenergan/Codeine Oral Syrup PO Q4 PRN Cough Saccharomyces Boulardii 250 mg 11/04/16 10:00 11/06/16 09:08 Florastor PO 250 mg BID SHANNON Administration - Patient Studies Lab Studies: Microbiology Studies 11/02/16 Unknown Body Fluid Culture - Preliminary Pleural Fluid NO GROWTH AFTER 2 DAYS 11/03/16 Unknown Gram Stain - Final Lung Tissue Culture - Preliminary NO GROWTH AFTER 48 HOURS 11/03/16 Unknown Anaerobic Culture - Final Other: Please Indicate NO ANAEROBES ISOLATED. 11/02/16 Unknown Mycobacterial Culture - Preliminary Other: Please Indicate Lab Studies 11/06/16 11/06/16 11/06/16 Range/Units 11:29 08:53 08:19 WBC 6.4 (4.8-10.8) K/uL RBC 2.81 L (4.40-5.90) Mil/uL Hgb 7.8 L (12.0-18.0) g/dL Hct 23.9 L (35.0-51.0) % MCV 84.9 (80.0-94.0) fL MCH 27.8 (27.0-31.0) pg MCHC 32.7 L (33.0-37.0) g/dL RDW 14.4 (11.5-14.5) % Plt Count 293 (130-400) K/uL MPV 9.4 (7.2-11.7) fL Neut % (Auto) 73.9 (50.0-75.0) % Lymph % (Auto) 15.4 L (20.0-40.0) % [place] % (Auto) 9.3 (0.0-10.0) % Eos % (Auto) 0.9 (0.0-4.0) % Baso % (Auto) 0.5 (0.0-2.0) % Neut # 4.7 (1.8-7.0) K/uL Lymph # 1.0 (1.0-4.3) K/uL [place] # 0.6 (0.0-0.8) K/uL Eos # 0.1 (0.0-0.7) K/uL Baso # 0.0 (0.0-0.2) K/uL Differential Comment Sodium (132-148) mmol/L Potassium (3.6-5.2) mmol/L Chloride (98-107) mmol/L Carbon Dioxide (22-30) mmol/L Anion Gap (10-20) BUN (9-20) mg/dL Creatinine (0.8-1.5) MG/DL Est GFR ( Amer) Est GFR (Non-Af Amer) POC Glucose (mg/dL) 314 H (65-110) mg/dL Random Glucose (75-110) mg/dL Calcium (8.6-10.4) mg/dl Phosphorus (2.5-4.5) mg/dL Magnesium (1.6-2.3) mg/dL Total Bilirubin (0.2-1.3) mg/dL AST (17-59) U/L ALT (21-72) U/L Alkaline Phosphatase (38-126) U/L Total Protein (6.3-8.3) g/dL Albumin (3.5-5.0) g/dL Globulin (2.2-3.9) gm/dL Albumin/Globulin Ratio (1.0-2.1) Ur Random Creatinine mg/dL Ur Random Sodium mmol/L Pleural Total Protein g/dL Pleural LDH U/L Pleural Glucose mg/dL Blood Type O POSITIVE Antibody Screen Negative 11/06/16 11/06/16 11/06/16 Range/Units 07:24 07:18 07:18 WBC 6.0 D (4.8-10.8) K/uL RBC 2.77 L (4.40-5.90) Mil/uL Hgb 7.7 L (12.0-18.0) g/dL Hct 23.5 L (35.0-51.0) % MCV 84.9 (80.0-94.0) fL MCH 27.8 (27.0-31.0) pg MCHC 32.7 L (33.0-37.0) g/dL RDW 14.4 (11.5-14.5) % Plt Count 310 (130-400) K/uL MPV 8.7 (7.2-11.7) fL Neut % (Auto) 73.8 (50.0-75.0) % Lymph % (Auto) 14.6 L (20.0-40.0) % [place] % (Auto) 10.5 H (0.0-10.0) % Eos % (Auto) 0.9 (0.0-4.0) % Baso % (Auto) 0.2 (0.0-2.0) % Neut # 4.4 (1.8-7.0) K/uL Lymph # 0.9 L (1.0-4.3) K/uL [place] # 0.6 (0.0-0.8) K/uL Eos # 0.1 (0.0-0.7) K/uL Baso # 0.0 (0.0-0.2) K/uL Differential Comment Sodium 129 L (132-148) mmol/L Potassium 3.6 (3.6-5.2) mmol/L Chloride 95 L (98-107) mmol/L Carbon Dioxide 24 (22-30) mmol/L Anion Gap 14 (10-20) BUN 11 (9-20) mg/dL Creatinine 0.6 L (0.8-1.5) MG/DL Est GFR ( Amer) > 60 Est GFR (Non-Af Amer) > 60 POC Glucose (mg/dL) 245 H (65-110) mg/dL Random Glucose 219 H (75-110) mg/dL Calcium 7.9 L (8.6-10.4) mg/dl Phosphorus 3.8 (2.5-4.5) mg/dL Magnesium 2.2 (1.6-2.3) mg/dL Total Bilirubin 0.6 (0.2-1.3) mg/dL AST 19 (17-59) U/L ALT 28 (21-72) U/L Alkaline Phosphatase 98 (38-126) U/L Total Protein 6.6 (6.3-8.3) g/dL Albumin 2.6 L (3.5-5.0) g/dL Globulin 4.0 H (2.2-3.9) gm/dL Albumin/Globulin Ratio 0.7 L (1.0-2.1) Ur Random Creatinine mg/dL Ur Random Sodium mmol/L Pleural Total Protein g/dL Pleural LDH U/L Pleural Glucose mg/dL Blood Type Antibody Screen 11/06/16 11/05/16 11/05/16 Range/Units 02:21 21:01 16:17 WBC (4.8-10.8) K/uL RBC (4.40-5.90) Mil/uL Hgb (12.0-18.0) g/dL Hct (35.0-51.0) % MCV (80.0-94.0) fL MCH (27.0-31.0) pg MCHC (33.0-37.0) g/dL RDW (11.5-14.5) % Plt Count (130-400) K/uL MPV (7.2-11.7) fL Neut % (Auto) (50.0-75.0) % Lymph % (Auto) (20.0-40.0) % [place] % (Auto) (0.0-10.0) % Eos % (Auto) (0.0-4.0) % Baso % (Auto) (0.0-2.0) % Neut # (1.8-7.0) K/uL Lymph # (1.0-4.3) K/uL [place] # (0.0-0.8) K/uL Eos # (0.0-0.7) K/uL Baso # (0.0-0.2) K/uL Differential Comment Sodium (132-148) mmol/L Potassium (3.6-5.2) mmol/L Chloride (98-107) mmol/L Carbon Dioxide (22-30) mmol/L Anion Gap (10-20) BUN (9-20) mg/dL Creatinine (0.8-1.5) MG/DL Est GFR ( Amer) Est GFR (Non-Af Amer) POC Glucose (mg/dL) 358 H 406 H* 427 H* (65-110) mg/dL Random Glucose (75-110) mg/dL Calcium (8.6-10.4) mg/dl Phosphorus (2.5-4.5) mg/dL Magnesium (1.6-2.3) mg/dL Total Bilirubin (0.2-1.3) mg/dL AST (17-59) U/L ALT (21-72) U/L Alkaline Phosphatase (38-126) U/L Total Protein (6.3-8.3) g/dL Albumin (3.5-5.0) g/dL Globulin (2.2-3.9) gm/dL Albumin/Globulin Ratio (1.0-2.1) Ur Random Creatinine mg/dL Ur Random Sodium mmol/L Pleural Total Protein g/dL Pleural LDH U/L Pleural Glucose mg/dL Blood Type Antibody Screen 11/05/16 11/05/16 11/03/16 Range/Units 14:00 07:56 15:06 WBC (4.8-10.8) K/uL RBC (4.40-5.90) Mil/uL Hgb (12.0-18.0) g/dL Hct (35.0-51.0) % MCV (80.0-94.0) fL MCH (27.0-31.0) pg MCHC (33.0-37.0) g/dL RDW (11.5-14.5) % Plt Count (130-400) K/uL MPV (7.2-11.7) fL Neut % (Auto) (50.0-75.0) % Lymph % (Auto) (20.0-40.0) % [place] % (Auto) (0.0-10.0) % Eos % (Auto) (0.0-4.0) % Baso % (Auto) (0.0-2.0) % Neut # (1.8-7.0) K/uL Lymph # (1.0-4.3) K/uL [place] # (0.0-0.8) K/uL Eos # (0.0-0.7) K/uL Baso # (0.0-0.2) K/uL Differential Comment Sodium (132-148) mmol/L Potassium (3.6-5.2) mmol/L Chloride (98-107) mmol/L Carbon Dioxide (22-30) mmol/L Anion Gap (10-20) BUN (9-20) mg/dL Creatinine (0.8-1.5) MG/DL Est GFR ( Amer) Est GFR (Non-Af Amer) POC Glucose (mg/dL) (65-110) mg/dL Random Glucose (75-110) mg/dL Calcium (8.6-10.4) mg/dl Phosphorus (2.5-4.5) mg/dL Magnesium (1.6-2.3) mg/dL Total Bilirubin (0.2-1.3) mg/dL AST (17-59) U/L ALT (21-72) U/L Alkaline Phosphatase (38-126) U/L Total Protein (6.3-8.3) g/dL Albumin (3.5-5.0) g/dL Globulin (2.2-3.9) gm/dL Albumin/Globulin Ratio (1.0-2.1) Ur Random Creatinine 55.5 mg/dL Ur Random Sodium < 5 mmol/L Pleural Total Protein 3.9 g/dL Pleural LDH U/L Pleural Glucose mg/dL Blood Type Antibody Screen 11/03/16 Range/Units 15:06 WBC (4.8-10.8) K/uL RBC (4.40-5.90) Mil/uL Hgb (12.0-18.0) g/dL Hct (35.0-51.0) % MCV (80.0-94.0) fL MCH (27.0-31.0) pg MCHC (33.0-37.0) g/dL RDW (11.5-14.5) % Plt Count (130-400) K/uL MPV (7.2-11.7) fL Neut % (Auto) (50.0-75.0) % Lymph % (Auto) (20.0-40.0) % [place] % (Auto) (0.0-10.0) % Eos % (Auto) (0.0-4.0) % Baso % (Auto) (0.0-2.0) % Neut # (1.8-7.0) K/uL Lymph # (1.0-4.3) K/uL [place] # (0.0-0.8) K/uL Eos # (0.0-0.7) K/uL Baso # (0.0-0.2) K/uL Differential Comment Sodium (132-148) mmol/L Potassium (3.6-5.2) mmol/L Chloride (98-107) mmol/L Carbon Dioxide (22-30) mmol/L Anion Gap (10-20) BUN (9-20) mg/dL Creatinine (0.8-1.5) MG/DL Est GFR ( Amer) Est GFR (Non-Af Amer) POC Glucose (mg/dL) (65-110) mg/dL Random Glucose (75-110) mg/dL Calcium (8.6-10.4) mg/dl Phosphorus (2.5-4.5) mg/dL Magnesium (1.6-2.3) mg/dL Total Bilirubin (0.2-1.3) mg/dL AST (17-59) U/L ALT (21-72) U/L Alkaline Phosphatase (38-126) U/L Total Protein (6.3-8.3) g/dL Albumin (3.5-5.0) g/dL Globulin (2.2-3.9) gm/dL Albumin/Globulin Ratio (1.0-2.1) Ur Random Creatinine mg/dL Ur Random Sodium mmol/L Pleural Total Protein 3.9 g/dL Pleural LDH 84 U/L Pleural Glucose 89 mg/dL Blood Type Antibody Screen Laboratory Results - last 24 hr 11/03/16 11/03/16 11/05/16 15:06 15:06 07:56 WBC RBC Hgb Hct MCV MCH MCHC RDW Plt Count MPV Neut % (Auto) Lymph % (Auto) [place] % (Auto) Eos % (Auto) Baso % (Auto) Neut # Lymph # [place] # Eos # Baso # Differential Comment Sodium Potassium Chloride Carbon Dioxide Anion Gap BUN Creatinine Est GFR ( Amer) Est GFR (Non-Af Amer) POC Glucose (mg/dL) Random Glucose Calcium Phosphorus Magnesium Total Bilirubin AST ALT Alkaline Phosphatase Total Protein Albumin Globulin Albumin/Globulin Ratio Ur Random Creatinine Ur Random Sodium Pleural Total Protein 3.9 3.9 Pleural LDH 84 Pleural Glucose 89 Blood Type Antibody Screen 11/05/16 11/05/16 11/05/16 14:00 16:17 21:01 WBC RBC Hgb Hct MCV MCH MCHC RDW Plt Count MPV Neut % (Auto) Lymph % (Auto) [place] % (Auto) Eos % (Auto) Baso % (Auto) Neut # Lymph # [place] # Eos # Baso # Differential Comment Sodium Potassium Chloride Carbon Dioxide Anion Gap BUN Creatinine Est GFR ( Amer) Est GFR (Non-Af Amer) POC Glucose (mg/dL) 427 H* 406 H* Random Glucose Calcium Phosphorus Magnesium Total Bilirubin AST ALT Alkaline Phosphatase Total Protein Albumin Globulin Albumin/Globulin Ratio Ur Random Creatinine 55.5 Ur Random Sodium < 5 Pleural Total Protein Pleural LDH Pleural Glucose Blood Type Antibody Screen 11/06/16 11/06/16 11/06/16 02:21 07:18 07:18 WBC 6.0 D RBC 2.77 L Hgb 7.7 L Hct 23.5 L MCV 84.9 MCH 27.8 MCHC 32.7 L RDW 14.4 Plt Count 310 MPV 8.7 Neut % (Auto) 73.8 Lymph % (Auto) 14.6 L [place] % (Auto) 10.5 H Eos % (Auto) 0.9 Baso % (Auto) 0.2 Neut # 4.4 Lymph # 0.9 L [place] # 0.6 Eos # 0.1 Baso # 0.0 Differential Comment Sodium 129 L Potassium 3.6 Chloride 95 L Carbon Dioxide 24 Anion Gap 14 BUN 11 Creatinine 0.6 L Est GFR ( Amer) > 60 Est GFR (Non-Af Amer) > 60 POC Glucose (mg/dL) 358 H Random Glucose 219 H Calcium 7.9 L Phosphorus 3.8 Magnesium 2.2 Total Bilirubin 0.6 AST 19 ALT 28 Alkaline Phosphatase 98 Total Protein 6.6 Albumin 2.6 L Globulin 4.0 H Albumin/Globulin Ratio 0.7 L Ur Random Creatinine Ur Random Sodium Pleural Total Protein Pleural LDH Pleural Glucose Blood Type Antibody Screen 11/06/16 11/06/16 11/06/16 07:24 08:19 08:53 WBC 6.4 RBC 2.81 L Hgb 7.8 L Hct 23.9 L MCV 84.9 MCH 27.8 MCHC 32.7 L RDW 14.4 Plt Count 293 MPV 9.4 Neut % (Auto) 73.9 Lymph % (Auto) 15.4 L [place] % (Auto) 9.3 Eos % (Auto) 0.9 Baso % (Auto) 0.5 Neut # 4.7 Lymph # 1.0 [place] # 0.6 Eos # 0.1 Baso # 0.0 Differential Comment Sodium Potassium Chloride Carbon Dioxide Anion Gap BUN Creatinine Est GFR ( Amer) Est GFR (Non-Af Amer) POC Glucose (mg/dL) 245 H Random Glucose Calcium Phosphorus Magnesium Total Bilirubin AST ALT Alkaline Phosphatase Total Protein Albumin Globulin Albumin/Globulin Ratio Ur Random Creatinine Ur Random Sodium Pleural Total Protein Pleural LDH Pleural Glucose Blood Type O POSITIVE Antibody Screen Negative 11/06/16 11:29 WBC RBC Hgb Hct MCV MCH MCHC RDW Plt Count MPV Neut % (Auto) Lymph % (Auto) [place] % (Auto) Eos % (Auto) Baso % (Auto) Neut # Lymph # [place] # Eos # Baso # Differential Comment Sodium Potassium Chloride Carbon Dioxide Anion Gap BUN Creatinine Est GFR ( Amer) Est GFR (Non-Af Amer) POC Glucose (mg/dL) 314 H Random Glucose Calcium Phosphorus Magnesium Total Bilirubin AST ALT Alkaline Phosphatase Total Protein Albumin Globulin Albumin/Globulin Ratio Ur Random Creatinine Ur Random Sodium Pleural Total Protein Pleural LDH Pleural Glucose Blood Type Antibody Screen Fingerstick Blood Sugar Results: 358 Critical Care Progress Note - Nutrition Nutrition: Nutrition Category Date Time Status Consistent Carbohydrate [DIET] Diets 11/03/16 Dinner Active Assessment/Plan (1) Empyema Assessment and plan: 40M with PMHx of HTN, DM with a recent admission for pneumonia presents to the ED with SOB with a right sided pleural effusion on CT. w/ Right lung empyema s/ p VATS converted to thoracotomy w/ decortication, parietal pleurectomy, and RLL wedge resection POD #3 (1) Empyema CT surgery (Dr. Villagomez) on board Infectious disease (Dr. East) on board Hx of influenza (10/02/16) Primaxin 500mg IV Q 6hout (active since 11/02/16) Telavancin 750mg IV Q24 hours (active since 11/02/16) Stopped Morphine [employer]TER, Percocet 2 tab PO Q6H prn - patient's pain is only mild and he did not like that the morphine was knocking him out. pending fluid studies Chest Xray (11/03/16): history of right thoracotomy-no gross resection of a rib appreciated. Extensive opacities overlying the mid right hemithorax. No pneumothorax seen. No mediastinal shift noed. Right pleural parenchymal opacity consistent w residual right loculated pleural fluid and probably pulmonary coalsecent interstitial edema. Chest CT (11/02/16): No CT evidence for acute pulmonary embolism. Large right pleural effusion with compressive atelectasis in the lower love. Superimposed pneumonia cannot be excluded. Follow-up advised. Operative note: VATS coverted to thoractomy, parietal pleurectomy, decortication, wedge resection of right lower love. Evacuation of empyema and fibrous exudate (given PRBC during OR)-->2 chest tubes pending GC/Quantiferon Aeronic, anaerobic, Blood culture, fungus culture, AFB, gram stain, mycobacterium, tissue culture collected Echo (11/02/16): EF: 65% (official report available in the EMR) Chest tube output still high. (2) Pleural effusion on right (3) Pneumonia Primaxin 500mg IVQ 6hour (active since 11/02/16) Telavancin 750mg IV Q24 hours (active since 11/02/16) Infectious disease (Dr. East) on board Negative legionella (4) Diabetes Increased Levemir 60 units subqHS Lisinopril 20mg PO dailu Metoprolol tarate 50mg PO Q 12hour Novolog sliding scale subq Accuchecks q6 hours Uncontrolled; a1c: 11.6 (10/16/16) T Chol: 208 LDL:106 HDL:38 (5) Hypertension Lisinopril 20mg PO daily Metoprolol 50mg PO Q 12hours (6) Anemia Negative stool occult blood Ordered for iron- low, TIBC - low , %iron saturation, folate- wnl, B12- wnl, reticulocyte count- high 3.0 Hep and HIV negative (5) Prophylactic care Pepcid 20mg PO daily for GI ppx Colace 100mg PO bid (6) hyponatremia with hypochloremia urine sodium low, check urine chloride, osmolality, uric acid. Unlikely SIADH as there was improvement with Saline administration Possibly losses from chest tubes, causing hypovolemic hyponatremia Continue NS@ 60 mL an hour Current Visit: Yes Status: Acute
[2016-11-06] MEDS: Telavancin Hydrochloride 750 MG in Sodium Chloride 0.9% 100 ML IVPB SCH (18:09)
[2016-11-06 20:12] LABS: C. PNEUMONIAE IGA <1:16 (<1:16); C. PNEUMONIAE IGM <1:10 (<1:10); C. PSITTACI IGA <1:16 (<1:16); C. PSITTACI IGM <1:10 (<1:10); C. TRACHOMATIS IGA <1:16 (<1:16); C. TRACHOMATIS IGM <1:10 (<1:10)
--- NOTE | 2016-11-06 20:41 | CP.PCM.PN ---
Subjective - Date & Time of Evaluation Date of Evaluation: 11/06/16 Time of Evaluation: 20:36 - Subjective Subjective: INFECTIOUS DISEASE ICU#15 PROGRESS NOTE MARIA DIAZ MD, FACP 11/06/2016 CHART REVIEWED EXAMINATION REPORTED ORDERS RENEWED NEEDED CLINICALLY HIS WBC HAS COME DOWN FROM RECENT REPORT OF 15,000. NO OBVIOUS +C/S REPORTED AT THIS POINT IN TIME. HIS ANEMIA CONTINUES, CHEST TUBES STILL DRAINING ON TELAVANCIN(VIBATIV) AND PRIMAXIN. Objective - Vital Signs/Intake and Output Vital Signs (last 24 hours): Temp Pulse Resp BP Pulse Ox 98.1 F 118 H 23 154/85 H 95 11/06/16 16:00 11/06/16 20:02 11/06/16 20:02 11/06/16 20:02 11/06/16 20:02 Intake and Output: 11/06/16 11/07/16 18:59 06:59 Intake Total 2130 180 Output Total 1130 500 Balance 1000 -320 - Medications Medications: Current Medications Albuterol/Ipratropium (Duoneb 3 Mg/0.5 Mg (3 Ml) Ud) 3 ml INH RQ6 SHANNON Last Admin: 11/06/16 19:07 Dose: 3 ml Docusate Sodium (Colace) 100 mg PO BID [facility] Last Admin: 11/06/16 17:13 Dose: Not Given Enoxaparin Sodium (Lovenox) 40 mg SC DAILY [facility] Last Admin: 11/06/16 10:35 Dose: 40 mg Famotidine (Pepcid) 20 mg PO DAILY [facility] Last Admin: 11/06/16 09:08 Dose: 20 mg Guaifenesin (Mucinex La) 600 mg PO BID [facility] Last Admin: 11/06/16 17:12 Dose: 600 mg Imipenem/Cilastatin Sodium 500 (mg/ Sodium Chloride) 100 mls @ 100 mls/hr IVPB Q6H [facility] Last Admin: 11/06/16 17:12 Dose: 100 mls/hr Telavancin 750 mg/ Sodium (Chloride) 100 mls @ 100 mls/hr IVPB Q24H [facility] Last Admin: 11/06/16 18:09 Dose: 100 mls/hr Sodium Chloride (Sodium Chloride 0.9%) 1,000 mls @ 60 mls/hr IV .[id number] [facility] Last Admin: 11/06/16 19:48 Dose: 60 mls/hr Insulin Aspart (Novolog) 0 unit SC ACHS [facility] PRN Reason: Protocol Last Admin: 11/06/16 16:38 Dose: 12 unit Insulin Detemir (Levemir) 60 unit SC HS [facility] Last Admin: 11/05/16 21:03 Dose: 60 unit Lisinopril (Zestril) 20 mg PO DAILY [facility] Last Admin: 11/06/16 09:08 Dose: 20 mg Metoprolol Tartrate (Lopressor) 50 mg PO Q12H [facility] Last Admin: 11/06/16 19:47 Dose: 50 mg Morphine Sulfate (Morphine) 4 mg IVP Q4 PRN PRN Reason: Pain, moderate (4-7) Last Admin: 11/06/16 18:39 Dose: 4 mg Oxycodone/Acetaminophen (Percocet 5/325 Mg Tab) 2 tab PO Q6H PRN PRN Reason: Pain, moderate (4-7) Stop: 11/10/16 08:46 Last Admin: 11/06/16 10:37 Dose: 2 tab Promethazine HCl/Codeine (Phenergan/Codeine Oral Syrup) 5 ml PO Q4 PRN PRN Reason: Cough Saccharomyces Boulardii (Florastor) 250 mg PO BID [facility] Last Admin: 11/06/16 17:12 Dose: 250 mg - Labs Labs: 11/06/16 08:19 11/06/16 07:18 PT 15.2 SECONDS (9.7-12.2) H 11/03/16 08:05 INR 1.3 11/03/16 08:05 APTT 32 SECONDS (21-34) 11/03/16 08:05 - Constitutional Appears: Non-toxic - Head Exam Head Exam: ATRAUMATIC - Eye Exam Eye Exam: Normal appearance - ENT Exam ENT Exam: Mucous Membranes Dry - Respiratory Exam Respiratory Exam: Decreased Breath Sounds - Cardiovascular Exam Cardiovascular Exam: Tachycardia - GI/Abdominal Exam GI & Abdominal Exam: Soft, Normal Bowel Sounds. absent: Tenderness - Extremities Exam Extremities Exam: absent: Calf Tenderness - Neurological Exam Neurological Exam: Alert, Awake - Psychiatric Exam Psychiatric exam: Anxious, Normal Affect Assessment and Plan (1) Empyema Status: Acute (2) Pleural effusion on right Status: Acute (3) Pneumonia Status: Acute (4) Anemia Status: Acute (5) Tachycardia Status: Acute (6) Hyperglycemia Assessment & Plan: DM OUT OF CONTROL FOR QWEEKS NOW! Status: Acute (7) HTN (hypertension) Status: Chronic
[2016-11-06] MEDS: Insulin Detemir 100 units/ml Vial (Levemir) SC SCH (21:49)
[2016-11-07] MEDS: Promethazine/Cod 6.25mg-10mg/5ml Syr UD PO PRN ×2 (01:20→08:44)
[2016-11-07] MEDS: Albuterol-Ipratrop 3 mg / 0.5 (3 ml) UD INH SCH ×4 (03:18→19:48)
[2016-11-07 06:52] LABS: CHLORIDE 95 mmol/L (98-107); POTASSIUM 3.7 mmol/L (3.6-5.2); SODIUM 131 mmol/L (132-148)
[2016-11-07 06:53] LABS: BASO % 0.2 % (0.0-2.0); EOS # 0.1 K/uL (0.0-0.7); EOS % 1.5 % (0.0-4.0); LYMPH % 20.8 % (20.0-40.0); MEAN CELL VOLUME 84.7 fL (80.0-94.0); MEAN CORPUSCULAR HEMOGLOBIN 27.5 pg (27.0-31.0); MEAN CORPUSCULAR HGB CONC 32.5 g/dL (33.0-37.0); MEAN PLATELET VOLUME 9.2 fL (7.2-11.7); MONO # 0.6 K/uL (0.0-0.8); MONO % 12.3 % (0.0-10.0); RED CELL DISTRIBUTION WIDTH 13.9 % (11.5-14.5); WHITE BLOOD COUNT 4.8 K/uL (4.8-10.8)
[2016-11-07 06:54] LABS: BILIRUBIN,TOTAL 0.5 mg/dL (0.2-1.3); CARBON DIOXIDE 26 mmol/L (22-30); GFR AFRICAN-AMERICAN > 60
[2016-11-07 06:55] LABS: ALB/GLOB RATIO 0.6 (1.0-2.1); ALKALINE PHOSPHATASE 90 U/L (38-126); ALT/SGPT 21 U/L (21-72); AST/SGOT 20 U/L (17-59); BLOOD UREA NITROGEN 10 mg/dL (9-20); CALCIUM 7.8 mg/dl (8.6-10.4); GLUCOSE,RANDOM 256 mg/dL (75-110); TOTAL PROTEIN 6.4 g/dL (6.3-8.3)
--- NOTE | 2016-11-07 07:31 | OP ---
PROCEDURE DATE: 11/03/2016 PREOPERATIVE DIAGNOSES: 1. Empyema, right chest. 2. Atelectasis, right lung. 3. Trapped lung. 4. Shortness of breath. POSTOPERATIVE DIAGNOSES: 1. Stage III empyema. 2. Trapped right lung. 3. Atelectasis. 4. Shortness of breath. ANESTHESIA: Double lumen endotracheal general anesthesia. OPERATION PERFORMED: 1. Right VATS, conversion to muscle-sparing right thoracotomy. 2. Parietal pleurectomy. 3. Decortication. 4. Evacuation of fibrinous exudate. 5. Debridement of chest cavity. 6. Wedge resection of basal segment of right lower lobe. SURGEON: Dr. Villagomez. ANESTHESIOLOGIST: Dr. Finley and . OPERATIVE PROCEDURE: The patient was taken to the operating room where under satisfactory endotracheal general anesthesia, the patient was placed in a left lateral decubitus position and operative field was prepared and draped in sterile fashion. Surgery was initially started out through a 5 cm long utility incision in the fourth intercostal space and it was soon discovered that because of fibrous thorax and trapped lung, the patient was a difficult candidate for VATS procedure(complete). Therefore, incision was extended as right muscle-sparing thoracotomy incision and then fourth intercostal space was entered. Bleeding points were electrocauterized. Chest cavity was entered extrapleurally and bleeding points were electrocauterized. Exposure was gained using initially a baby Finochietto retractor and this retractor was used throughout her procedure. Upon entrance into the chest cavity, approximately 1000 mL of purulent exudate was evacuated. Next, both lung and chest wall were debrided of fibrinous exudate, bluntly. Chest cavity at this time was also irrigated with a copious normal saline. Next, parietal pleurectomy was carried out using blunt and sharp dissections. Some bleeding was encountered; however, these were readily controlled with packing with dry lap pads. Next, using sharp and blunt dissection, decortication was carried out to re-expand the lung. This was for the most part successfully done and lung readily became re- expanded after decortication. Finally, using Ethilon,flex, Blue cartridge loaded stapler, wedge resection of the basal segment of right lower lobe was carried out. Finally, chest cavity was irrigated with copious warm normal saline solution, following which 2 chest tubes, i.e. 28-South African and 32-South African, were inserted anteriorly and posteriorly respectively and these were secured at the skin edge with all silk sutures. Ribs were approximated with figure-of- eight PDS #1, and muscle fascia with continuous 0 Vicryl, subcutaneous fascia with continuous 0 Vicryl and skin with skin mehnaz. Sterile dressing was applied and taped in usual manner.Tissues as well as pleural fluid was sent out for appropriate studies. The patient was transferred to ICU in a stable condition. ESTIMATED BLOOD LOSS: 300 mL. Sponge, needle and instrument counts were correct. Francis Villagomez MD cc: [id number] TT: 11/05/2016 15:54:07 juan manuel ORTIZ
[2016-11-07] MEDS: (Novolog) Insulin Aspart, Recombinant 100 u/ml 10 ml vial SC SCH ×4 (08:00→21:31)
[2016-11-07] MEDS: Oxycodone/Acetaminophen 5/325 mg Tab PO PRN ×2 (08:41→21:14)
[2016-11-07] MEDS: Enoxaparin 40 mg Syringe SC SCH (09:24)
[2016-11-07] MEDS: Saccharomyces Boulardi 250 mg Cap PO SCH ×2 (09:24→18:26)
[2016-11-07] MEDS: guaiFENesin 600 mg ER Tab PO SCH ×2 (09:26→18:28)
--- NOTE | 2016-11-07 10:23 | CP.PCM.PN ---
<Florencio Wade - Last Filed: 11/07/16 16:55> Subjective - Date & Time of Evaluation Date of Evaluation: 11/07/16 Time of Evaluation: 10:20 - Subjective Subjective: Cardiology Progress Note Dr. Lin Patient seen and examined at the bedside. No acute distress. No acute events overnight. Patient is POD #4 s/p thoracotomy with Dr. Villagomez. The patient notes improved SOB and chest pain. The patient is seated comfortably in his bedside chair. The patient also reports increased lower extremity swelling. He denies all other complaints this morning. 12 point review of systems was completed and negative except for the above, stated complaints. Objective - Vital Signs/Intake and Output Vital Signs (last 24 hours): Temp Pulse Resp BP Pulse Ox 98.4 F 94 H 18 134/80 98 11/07/16 10:11/07/16 10:17 11/07/16 10:11/07/16 10:11/07/16 09:00 Intake and Output: 11/07/16 11/07/16 06:59 18:59 Intake Total 1480 360 Output Total 1600 80 Balance -120 280 - Medications Medications: Current Medications Albuterol/Ipratropium (Duoneb 3 Mg/0.5 Mg (3 Ml) Ud) 3 ml INH RQ6 [facility] Last Admin: 11/07/16 07:55 Dose: 3 ml Docusate Sodium (Colace) 100 mg PO BID [facility] Last Admin: 11/07/16 09:24 Dose: 100 mg Enoxaparin Sodium (Lovenox) 40 mg SC DAILY [facility] Last Admin: 11/07/16 09:24 Dose: 40 mg Famotidine (Pepcid) 20 mg PO DAILY [facility] Last Admin: 11/07/16 09:24 Dose: 20 mg Furosemide (Lasix) 20 mg IVP DAILY [facility] Guaifenesin (Mucinex La) 600 mg PO BID [facility] Last Admin: 11/07/16 09:26 Dose: 600 mg Imipenem/Cilastatin Sodium 500 (mg/ Sodium Chloride) 100 mls @ 100 mls/hr IVPB Q6H [facility] Last Admin: 11/07/16 05:20 Dose: 100 mls/hr Telavancin 750 mg/ Sodium (Chloride) 100 mls @ 100 mls/hr IVPB Q24H [facility] Last Admin: 11/06/16 18:09 Dose: 100 mls/hr Sodium Chloride (Sodium Chloride 0.9%) 1,000 mls @ 60 mls/hr IV .[id number] [facility] Last Admin: 11/06/16 19:48 Dose: 60 mls/hr Insulin Aspart (Novolog) 0 unit SC ACHS [facility] PRN Reason: Protocol Last Admin: 11/07/16 08:00 Dose: 8 unit Insulin Detemir (Levemir) 60 unit SC HS [facility] Last Admin: 11/06/16 21:49 Dose: 60 unit Lisinopril (Zestril) 20 mg PO DAILY [facility] Last Admin: 11/07/16 09:24 Dose: 20 mg Metoprolol Tartrate (Lopressor) 50 mg PO Q12H [facility] Last Admin: 11/07/16 08:41 Dose: 50 mg Morphine Sulfate (Morphine) 4 mg IVP Q4 PRN PRN Reason: Pain, moderate (4-7) Last Admin: 11/07/16 01:20 Dose: 4 mg Oxycodone/Acetaminophen (Percocet 5/325 Mg Tab) 2 tab PO Q6H PRN PRN Reason: Pain, moderate (4-7) Stop: 11/10/16 08:46 Last Admin: 11/07/16 08:41 Dose: 2 tab Promethazine HCl/Codeine (Phenergan/Codeine Oral Syrup) 5 ml PO Q4 PRN PRN Reason: Cough Last Admin: 11/07/16 08:44 Dose: 5 ml Saccharomyces Boulardii (Florastor) 250 mg PO BID [facility] Last Admin: 11/07/16 09:24 Dose: 250 mg - Labs Labs: 11/07/16 06:32 11/07/16 06:33 PT 15.2 SECONDS (9.7-12.2) H 11/03/16 08:05 INR 1.3 11/03/16 08:05 APTT 32 SECONDS (21-34) 11/03/16 08:05 - Additional Findings Additional findings: - Constitutional Appears: Well, No Acute Distress - Head Exam Head Exam: ATRAUMATIC, NORMAL INSPECTION, NORMOCEPHALIC - Eye Exam Eye Exam: EOMI, Normal appearance Pupil Exam: NORMAL ACCOMODATION - ENT Exam ENT Exam: Mucous Membranes Moist, Normal Exam - Neck Exam Neck exam: Positive for: Full Rom, Normal Inspection. Negative for: Tenderness - Respiratory Exam Respiratory Exam: Decreased Breath Sounds (right lung mid and base), NORMAL BREATHING PATTERN. absent: Accessory Muscle Use, Clear to Auscultation Bilateral, Rales, Rhonchi, Wheezes, Respiratory Distress - Cardiovascular Exam Cardiovascular Exam: Tachycardia, REGULAR RHYTHM, +S1, +S2. absent: Diastolic murmur, RRR, Systolic Murmur - GI/Abdominal Exam GI & Abdominal Exam: Normal Bowel Sounds, Soft. absent: Distended, Firm, Guarding, Tenderness - Extremities Exam Extremities exam: Positive for: normal capillary refill, normal inspection, pedal pulses present, Edema (2+ pitting b/l le) - Back Exam Back exam: NORMAL INSPECTION. absent: CVA tenderness (L), CVA tenderness (R) - Neurological Exam Neurological exam: Alert, CN II-XII Intact, Oriented x3 - Skin Skin Exam: Dry, Intact, Normal Color, Warm Assessment and Plan (1) Tachycardia Assessment & Plan: will continue to monitor continue tele monitoring 11/04/16 ELG- sinus tachycardia, physiologic axis, normal [place] interval, normal QRS duration, prolonged QTc, poor R wave progression, no ST or T wave abnormalities 11/02/16 EKG- sinus tachycardia, right axis deviation, normal [place] interval, normal QRS duration, prolonged QTc, nonspecific ST/T wave abnormality 11/03/15 Echo- EF 53%, normal diastolic filling pressures Troponin negative x 2 (<0.0120 x 2) CK-MB negative x 2 (1.00 > 0.63) BNP 102 (normal) Case Discussed with Dr. Delia Wade PGY1 Status: Resolved (2) Bilateral lower extremity edema Assessment & Plan: 2+ pitting Lasix 20mg IVP daily José hose stockings ordered Status: Acute (3) Pre-procedural cardiovascular examination Assessment & Plan: Cardiac Risk Assessment- (Low Risk for VATS) - Detsky Score 10: Class I - Low Risk - Jenkins Score 3: Class I - Low Risk - Tunde Score 2- Moderate Risk Status: Resolved <Saravanan Lin - Last Filed: 12/28/16 10:26> Objective - Vital Signs/Intake and Output Vital Signs (last 24 hours): Temp Pulse Resp BP Pulse Ox 97.7 F 82 18 120/83 95 05/24/17 08:06 11/30/16 08:06 11/30/16 08:06 11/30/16 08:06 11/30/16 08:06 - Labs Labs: 11/29/16 07:08 11/29/16 07:08 PT 14.4 SECONDS (9.7-12.2) H 11/29/16 07:08 INR 1.3 11/29/16 07:08 APTT 35 SECONDS (21-34) H 11/29/16 07:08 Assessment and Plan (1) HTN (hypertension) Status: Chronic (2) Tachycardia Status: Resolved Attending/Attestation - Attestation I have personally seen and examined this patient.: Yes I have fully participated in the care of the patient.: Yes I have reviewed all pertinent clinical information, including history, physical exam and plan: Yes Notes (Text): 12/28/16 10:25 bp stable follow H/H on low side no tachy
--- NOTE | 2016-11-07 11:12 | RAD ---
HISTORY: s/p thoracotomy and chest tube insertion x3 COMPARISON: Chest x-ray performed 11/06/16 TECHNIQUE: Chest, one view. FINDINGS: Two right-sided chest tubes. LUNGS: No significant interval change in small right-sided pleural effusion and hazy/ patchy airspace opacities involving the right lung. There is no pneumothorax. CARDIOVASCULAR: Cardiomegaly. OSSEOUS STRUCTURES: No acute osseous abnormality identified. VISUALIZED UPPER ABDOMEN: Unremarkable. OTHER FINDINGS: None. IMPRESSION: Two right-sided chest tubes. No pneumothorax. Stable when compared to previous chest x-rays.
--- NOTE | 2016-11-07 11:52 | CP.CCUPN ---
<Martha Cottrell - Last Filed: 11/07/16 11:45> CCU Subjective - Physician Review Subjective (Free Text): Patient was seen and examined at bedside. Pain is well controlled on Morphine and Percocet. Hemoglobin continues to downtrend, despite 3 PRBCs transfusions ( 2 pre-op and 1 in the OR). Patient will be transfused 1 more unit. Chest tube # 1 ouput: 140cc/24 CT#2 output:40cc/24. Patient is transferred to [facility] CCU Objective - Vital Signs / Intake & Output Vital Signs (Last 4 hours): Vital Signs Temp Pulse Resp BP Pulse Ox 11/07/16 11:00 98.2 F 76 19 111/54 L 99 11/07/16 10:30 98.3 F 91 H 19 130/87 11/07/16 10:17 98.4 F 94 H 18 134/80 11/07/16 10:00 98.4 F 84 18 125/65 98 11/07/16 09:00 100 F H 88 18 139/74 98 11/07/16 08:00 99 F 98 H 19 137/74 97 Intake and Output (Last 8hrs): Intake & Output 11/06/16 11/07/16 11/07/16 22:59 06:59 14:59 Intake Total 1460 940 610 Output Total 960 700 80 Balance 500 240 530 Weight 262 lb Intake: Intake, IV Amount 620 560 490 Right Antecubital 60 Right Upper arm 310 y port,rt upper arm 560 560 180 Oral 840 380 120 Blood Product 0 Red Blood Cells Cpd As1 0 Lr Unit [id number] Output: Chest Tube Drainage 60 80 Right Mid-Axillary Chest 50 60 Right Mid-Axillary Chest 10 20 #2 Urine 900 700 0 Urine, Voided 900 700 0 Other: # Bowel Movements 0 0 0 - Physical Exam Head: Positive for: Atraumatic, Normocephalic Pupils: Positive for: PERRL Extroacular Muscles: Positive for: EOMI Conjunctiva: Positive for: Normal Mouth: Positive for: Moist Mucous Membranes Respiratory/Chest: Positive for: Decreased Breath Sounds, Other (on BIPAP). Negative for: Respiratory Distress, Accessory Muscle Use Cardiovascular: Positive for: Regular Rate and Rhythm, Normal S1, S2, Other (2 chest tubes, right sided ) Abdomen: Positive for: Normal Bowel Sounds. Negative for: Tenderness, Distention Upper Extremity: Positive for: Normal Inspection, Normal ROM, NORMAL PULSES. Negative for: Cyanosis, Edema Lower Extremity: Positive for: Normal Inspection, NORMAL PULSES. Negative for: Edema, CALF TENDERNESS Neurological: Positive for: GCS=15, CN II-XII Intact Skin: Positive for: Warm, Dry, Normal Color - Medications Active Medications: Active Medications Generic Name Dose Route Start Last Admin Trade Name Freq PRN Reason Stop Dose Admin Albuterol/Ipratropium 3 ml 11/05/16 14:00 11/07/16 07:55 Duoneb 3 Mg/0.5 Mg (3 Ml) Ud INH 3 ml RQ6 SHANNON Administration Docusate Sodium 100 mg 11/02/16 18:00 11/07/16 09:24 Colace PO 100 mg BID SHANNON Administration Enoxaparin Sodium 40 mg 11/05/16 10:30 11/07/16 09:24 Lovenox SC 40 mg DAILY SHANNON Administration Famotidine 20 mg 11/02/16 10:00 11/07/16 09:24 Pepcid PO 20 mg DAILY SHANNON Administration Furosemide 20 mg 11/07/16 10:15 Lasix IVP DAILY SHANNON Guaifenesin 600 mg 11/06/16 10:00 11/07/16 09:26 Mucinex La PO 600 mg BID SHANNON Administration Imipenem/Cilastatin Sodium 500 100 mls @ 100 mls/hr 11/02/16 18:00 11/07/16 05:20 mg/ Sodium Chloride IVPB 100 mls/hr Q6H SHANNON Administration Telavancin 750 mg/ Sodium 100 mls @ 100 mls/hr 11/02/16 19:00 11/06/16 18:09 Chloride IVPB 100 mls/hr Q24H SHANNON Administration Sodium Chloride 1,000 mls @ 60 mls/hr 11/05/16 10:15 11/06/16 19:48 Sodium Chloride 0.9% IV 60 mls/hr .[id number] SHANNON Administration Insulin Aspart 0 unit 11/02/16 07:30 11/07/16 08:00 Novolog SC 8 unit ACHS SHANNON Administration Protocol Insulin Detemir 60 unit 11/05/16 10:23 11/06/16 21:49 Levemir SC 60 unit HS SHANNON Administration Lisinopril 20 mg 11/02/16 10:00 11/07/16 09:24 Zestril PO 20 mg DAILY SHANNON Administration Metoprolol Tartrate 50 mg 11/03/16 08:45 11/07/16 08:41 Lopressor PO 50 mg Q12H SHANNON Administration Morphine Sulfate 4 mg 11/06/16 10:06 11/07/16 01:20 Morphine IVP 4 mg Q4 PRN Administration Pain, moderate (4-7) Oxycodone/Acetaminophen 2 tab 11/05/16 10:11/07/16 08:41 Percocet 5/325 Mg Tab PO 11/10/16 08:46 2 tab Q6H PRN Administration Pain, moderate (4-7) Promethazine HCl/Codeine 5 ml 11/06/16 07:57 11/07/16 08:44 Phenergan/Codeine Oral Syrup PO 5 ml Q4 PRN Administration Cough Saccharomyces Boulardii 250 mg 11/04/16 10:00 11/07/16 09:24 Florastor PO 250 mg BID SHANNON Administration - Patient Studies Lab Studies: Microbiology Studies 11/03/16 Unknown Gram Stain - Final Lung Tissue Culture - Final Coagulase Neg Staphylococcus 11/02/16 Unknown Gram Stain - Final Pleural Fluid Anaerobic Culture - Final NO ANAEROBES ISOLATED. Body Fluid Culture - Final Corynebacterium Species Lab Studies 11/07/16 11/07/16 11/07/16 Range/Units 08:35 06:33 06:32 WBC 4.8 (4.8-10.8) K/uL RBC 2.71 L (4.40-5.90) Mil/uL Hgb 7.5 L (12.0-18.0) g/dL Hct 23.0 L (35.0-51.0) % MCV 84.7 (80.0-94.0) fL MCH 27.5 (27.0-31.0) pg MCHC 32.5 L (33.0-37.0) g/dL RDW 13.9 (11.5-14.5) % Plt Count 337 (130-400) K/uL MPV 9.2 (7.2-11.7) fL Neut % (Auto) 65.2 (50.0-75.0) % Lymph % (Auto) 20.8 (20.0-40.0) % Cochran % (Auto) 12.3 H (0.0-10.0) % Eos % (Auto) 1.5 (0.0-4.0) % Baso % (Auto) 0.2 (0.0-2.0) % Neut # 3.1 (1.8-7.0) K/uL Lymph # 1.0 (1.0-4.3) K/uL Cochran # 0.6 (0.0-0.8) K/uL Eos # 0.1 (0.0-0.7) K/uL Baso # 0.0 (0.0-0.2) K/uL Sodium 131 L (132-148) mmol/L Potassium 3.7 (3.6-5.2) mmol/L Chloride 95 L (98-107) mmol/L Carbon Dioxide 26 (22-30) mmol/L Anion Gap 14 (10-20) BUN 10 (9-20) mg/dL Creatinine 0.6 L (0.8-1.5) MG/DL Est GFR ( Amer) > 60 Est GFR (Non-Af Amer) > 60 POC Glucose (mg/dL) 251 H (65-110) mg/dL Random Glucose 256 H (75-110) mg/dL Hemoglobin A1c (4.2-6.5) % Serum Osmolality (272-300) mosm/kg Calcium 7.8 L (8.6-10.4) mg/dl Magnesium 2.0 (1.6-2.3) mg/dL Total Bilirubin 0.5 (0.2-1.3) mg/dL AST 20 (17-59) U/L ALT 21 D (21-72) U/L Alkaline Phosphatase 90 (38-126) U/L Total Protein 6.4 (6.3-8.3) g/dL Albumin 2.5 L (3.5-5.0) g/dL Globulin 3.9 (2.2-3.9) gm/dL Albumin/Globulin Ratio 0.6 L (1.0-2.1) Urine Osmolality (300-1000) mosm/kg Ur Random Uric Acid mg/dL Pleural Amylase U/L C. pneumoniae IgA Ab (<1:16) C. pneumoniae IgM Ab (<1:10) C. trachomatis IgA Ab (<1:16) C. trachomatis IgM Ab (<1:10) C. psittaci IgA Ab (<1:16) C. psittaci IgM Ab (<1:10) Blood Type Antibody Screen 11/06/16 11/06/16 11/06/16 Range/Units 21:33 19:03 16:18 WBC (4.8-10.8) K/uL RBC (4.40-5.90) Mil/uL Hgb (12.0-18.0) g/dL Hct (35.0-51.0) % MCV (80.0-94.0) fL MCH (27.0-31.0) pg MCHC (33.0-37.0) g/dL RDW (11.5-14.5) % Plt Count (130-400) K/uL MPV (7.2-11.7) fL Neut % (Auto) (50.0-75.0) % Lymph % (Auto) (20.0-40.0) % Cochran % (Auto) (0.0-10.0) % Eos % (Auto) (0.0-4.0) % Baso % (Auto) (0.0-2.0) % Neut # (1.8-7.0) K/uL Lymph # (1.0-4.3) K/uL Cochran # (0.0-0.8) K/uL Eos # (0.0-0.7) K/uL Baso # (0.0-0.2) K/uL Sodium (132-148) mmol/L Potassium (3.6-5.2) mmol/L Chloride (98-107) mmol/L Carbon Dioxide (22-30) mmol/L Anion Gap (10-20) BUN (9-20) mg/dL Creatinine (0.8-1.5) MG/DL Est GFR ( Amer) Est GFR (Non-Af Amer) POC Glucose (mg/dL) 375 H 367 H (65-110) mg/dL Random Glucose (75-110) mg/dL Hemoglobin A1c (4.2-6.5) % Serum Osmolality (272-300) mosm/kg Calcium (8.6-10.4) mg/dl Magnesium (1.6-2.3) mg/dL Total Bilirubin (0.2-1.3) mg/dL AST (17-59) U/L ALT (21-72) U/L Alkaline Phosphatase (38-126) U/L Total Protein (6.3-8.3) g/dL Albumin (3.5-5.0) g/dL Globulin (2.2-3.9) gm/dL Albumin/Globulin Ratio (1.0-2.1) Urine Osmolality 424 (300-1000) mosm/kg Ur Random Uric Acid 50.6 mg/dL Pleural Amylase U/L C. pneumoniae IgA Ab (<1:16) C. pneumoniae IgM Ab (<1:10) C. trachomatis IgA Ab (<1:16) C. trachomatis IgM Ab (<1:10) C. psittaci IgA Ab (<1:16) C. psittaci IgM Ab (<1:10) Blood Type Antibody Screen 11/06/16 11/06/16 11/06/16 Range/Units 14:04 11:29 08:53 WBC (4.8-10.8) K/uL RBC (4.40-5.90) Mil/uL Hgb (12.0-18.0) g/dL Hct (35.0-51.0) % MCV (80.0-94.0) fL MCH (27.0-31.0) pg MCHC (33.0-37.0) g/dL RDW (11.5-14.5) % Plt Count (130-400) K/uL MPV (7.2-11.7) fL Neut % (Auto) (50.0-75.0) % Lymph % (Auto) (20.0-40.0) % Cochran % (Auto) (0.0-10.0) % Eos % (Auto) (0.0-4.0) % Baso % (Auto) (0.0-2.0) % Neut # (1.8-7.0) K/uL Lymph # (1.0-4.3) K/uL Cochran # (0.0-0.8) K/uL Eos # (0.0-0.7) K/uL Baso # (0.0-0.2) K/uL Sodium (132-148) mmol/L Potassium (3.6-5.2) mmol/L Chloride (98-107) mmol/L Carbon Dioxide (22-30) mmol/L Anion Gap (10-20) BUN (9-20) mg/dL Creatinine (0.8-1.5) MG/DL Est GFR ( Amer) Est GFR (Non-Af Amer) POC Glucose (mg/dL) 314 H (65-110) mg/dL Random Glucose (75-110) mg/dL Hemoglobin A1c (4.2-6.5) % Serum Osmolality 280 (272-300) mosm/kg Calcium (8.6-10.4) mg/dl Magnesium (1.6-2.3) mg/dL Total Bilirubin (0.2-1.3) mg/dL AST (17-59) U/L ALT (21-72) U/L Alkaline Phosphatase (38-126) U/L Total Protein (6.3-8.3) g/dL Albumin (3.5-5.0) g/dL Globulin (2.2-3.9) gm/dL Albumin/Globulin Ratio (1.0-2.1) Urine Osmolality (300-1000) mosm/kg Ur Random Uric Acid mg/dL Pleural Amylase U/L C. pneumoniae IgA Ab (<1:16) C. pneumoniae IgM Ab (<1:10) C. trachomatis IgA Ab (<1:16) C. trachomatis IgM Ab (<1:10) C. psittaci IgA Ab (<1:16) C. psittaci IgM Ab (<1:10) Blood Type O POSITIVE Antibody Screen Negative 11/05/16 11/03/16 11/03/16 Range/Units 07:56 15:06 07:16 WBC (4.8-10.8) K/uL RBC (4.40-5.90) Mil/uL Hgb (12.0-18.0) g/dL Hct (35.0-51.0) % MCV (80.0-94.0) fL MCH (27.0-31.0) pg MCHC (33.0-37.0) g/dL RDW (11.5-14.5) % Plt Count (130-400) K/uL MPV (7.2-11.7) fL Neut % (Auto) (50.0-75.0) % Lymph % (Auto) (20.0-40.0) % Cochran % (Auto) (0.0-10.0) % Eos % (Auto) (0.0-4.0) % Baso % (Auto) (0.0-2.0) % Neut # (1.8-7.0) K/uL Lymph # (1.0-4.3) K/uL Cochran # (0.0-0.8) K/uL Eos # (0.0-0.7) K/uL Baso # (0.0-0.2) K/uL Sodium (132-148) mmol/L Potassium (3.6-5.2) mmol/L Chloride (98-107) mmol/L Carbon Dioxide (22-30) mmol/L Anion Gap (10-20) BUN (9-20) mg/dL Creatinine (0.8-1.5) MG/DL Est GFR ( Amer) Est GFR (Non-Af Amer) POC Glucose (mg/dL) (65-110) mg/dL Random Glucose (75-110) mg/dL Hemoglobin A1c 8.9 H D (4.2-6.5) % Serum Osmolality (272-300) mosm/kg Calcium (8.6-10.4) mg/dl Magnesium (1.6-2.3) mg/dL Total Bilirubin (0.2-1.3) mg/dL AST (17-59) U/L ALT (21-72) U/L Alkaline Phosphatase (38-126) U/L Total Protein (6.3-8.3) g/dL Albumin (3.5-5.0) g/dL Globulin (2.2-3.9) gm/dL Albumin/Globulin Ratio (1.0-2.1) Urine Osmolality (300-1000) mosm/kg Ur Random Uric Acid mg/dL Pleural Amylase <10 U/L C. pneumoniae IgA Ab <1:16 (<1:16) C. pneumoniae IgM Ab <1:10 (<1:10) C. trachomatis IgA Ab <1:16 (<1:16) C. trachomatis IgM Ab <1:10 (<1:10) C. psittaci IgA Ab <1:16 (<1:16) C. psittaci IgM Ab <1:10 (<1:10) Blood Type Antibody Screen Laboratory Results - last 24 hr 11/03/16 11/03/16 11/05/16 07:16 15:06 07:56 WBC RBC Hgb Hct MCV MCH MCHC RDW Plt Count MPV Neut % (Auto) Lymph % (Auto) Cochran % (Auto) Eos % (Auto) Baso % (Auto) Neut # Lymph # Cochran # Eos # Baso # Sodium Potassium Chloride Carbon Dioxide Anion Gap BUN Creatinine Est GFR ( Amer) Est GFR (Non-Af Amer) POC Glucose (mg/dL) Random Glucose Hemoglobin A1c 8.9 H D Serum Osmolality Calcium Magnesium Total Bilirubin AST ALT Alkaline Phosphatase Total Protein Albumin Globulin Albumin/Globulin Ratio Urine Osmolality Ur Random Uric Acid Pleural Amylase <10 C. pneumoniae IgA Ab <1:16 C. pneumoniae IgM Ab <1:10 C. trachomatis IgA Ab <1:16 C. trachomatis IgM Ab <1:10 C. psittaci IgA Ab <1:16 C. psittaci IgM Ab <1:10 Blood Type Antibody Screen 11/06/16 11/06/16 11/06/16 08:53 11:29 14:04 WBC RBC Hgb Hct MCV MCH MCHC RDW Plt Count MPV Neut % (Auto) Lymph % (Auto) Cochran % (Auto) Eos % (Auto) Baso % (Auto) Neut # Lymph # Cochran # Eos # Baso # Sodium Potassium Chloride Carbon Dioxide Anion Gap BUN Creatinine Est GFR ( Amer) Est GFR (Non-Af Amer) POC Glucose (mg/dL) 314 H Random Glucose Hemoglobin A1c Serum Osmolality 280 Calcium Magnesium Total Bilirubin AST ALT Alkaline Phosphatase Total Protein Albumin Globulin Albumin/Globulin Ratio Urine Osmolality Ur Random Uric Acid Pleural Amylase C. pneumoniae IgA Ab C. pneumoniae IgM Ab C. trachomatis IgA Ab C. trachomatis IgM Ab C. psittaci IgA Ab C. psittaci IgM Ab Blood Type O POSITIVE Antibody Screen Negative 11/06/16 11/06/16 11/06/16 16:18 19:03 21:33 WBC RBC Hgb Hct MCV MCH MCHC RDW Plt Count MPV Neut % (Auto) Lymph % (Auto) Cochran % (Auto) Eos % (Auto) Baso % (Auto) Neut # Lymph # Cochran # Eos # Baso # Sodium Potassium Chloride Carbon Dioxide Anion Gap BUN Creatinine Est GFR ( Amer) Est GFR (Non-Af Amer) POC Glucose (mg/dL) 367 H 375 H Random Glucose Hemoglobin A1c Serum Osmolality Calcium Magnesium Total Bilirubin AST ALT Alkaline Phosphatase Total Protein Albumin Globulin Albumin/Globulin Ratio Urine Osmolality 424 Ur Random Uric Acid 50.6 Pleural Amylase C. pneumoniae IgA Ab C. pneumoniae IgM Ab C. trachomatis IgA Ab C. trachomatis IgM Ab C. psittaci IgA Ab C. psittaci IgM Ab Blood Type Antibody Screen 11/07/16 11/07/16 11/07/16 06:32 06:33 08:35 WBC 4.8 RBC 2.71 L Hgb 7.5 L Hct 23.0 L MCV 84.7 MCH 27.5 MCHC 32.5 L RDW 13.9 Plt Count 337 MPV 9.2 Neut % (Auto) 65.2 Lymph % (Auto) 20.8 Cochran % (Auto) 12.3 H Eos % (Auto) 1.5 Baso % (Auto) 0.2 Neut # 3.1 Lymph # 1.0 Cochran # 0.6 Eos # 0.1 Baso # 0.0 Sodium 131 L Potassium 3.7 Chloride 95 L Carbon Dioxide 26 Anion Gap 14 BUN 10 Creatinine 0.6 L Est GFR ( Amer) > 60 Est GFR (Non-Af Amer) > 60 POC Glucose (mg/dL) 251 H Random Glucose 256 H Hemoglobin A1c Serum Osmolality Calcium 7.8 L Magnesium 2.0 Total Bilirubin 0.5 AST 20 ALT 21 D Alkaline Phosphatase 90 Total Protein 6.4 Albumin 2.5 L Globulin 3.9 Albumin/Globulin Ratio 0.6 L Urine Osmolality Ur Random Uric Acid Pleural Amylase C. pneumoniae IgA Ab C. pneumoniae IgM Ab C. trachomatis IgA Ab C. trachomatis IgM Ab C. psittaci IgA Ab C. psittaci IgM Ab Blood Type Antibody Screen Fingerstick Blood Sugar Results: 367 Critical Care Progress Note - Nutrition Nutrition: Nutrition Category Date Time Status Consistent Carbohydrate [DIET] Diets 11/03/16 Dinner Active Assessment/Plan - Assessment and Plan (Free Text) Assessment: 40M with PMHx of HTN, DM with a recent admission for pneumonia presents to the ED with SOB with a right sided pleural effusion on CT. w/ Right lung empyema s/ p VATS converted to thoracotomy w/ decortication, parietal pleurectomy, and RLL wedge resection POD #4 Plan: Empyema CT surgery (Dr. Villagomez) on board Operative note: VATS coverted to thoractomy, parietal pleurectomy, decortication, wedge resection of right lower love. Evacuation of empyema and fibrous exudate (given PRBC during OR)--> Chest tube #1 ouput: 140cc/24 CT#2 output:40cc/24. Aeronic, anaerobic, Blood culture, fungus culture, AFB, gram stain, mycobacterium, tissue culture collected Infectious disease (Dr. East) on board Primaxin 500mg IV Q 6hout (active since 11/02/16) Telavancin 750mg IV Q24 hours (active since 11/02/16) Hx of influenza (10/02/16) Stopped Morphine [employer], Percocet 2 tab PO Q6H prn Chest Xray (11/03/16): history of right thoracotomy-no gross resection of a rib appreciated. Extensive opacities overlying the mid right hemithorax. No pneumothorax seen. No mediastinal shift noed. Right pleural parenchymal opacity consistent with residual right loculated pleural fluid and probably pulmonary coalsecent interstitial edema. Chest CT (11/02/16): No CT evidence for acute pulmonary embolism. Large right pleural effusion with compressive atelectasis in the lower love. Superimposed pneumonia cannot be excluded. Follow-up advised. Pleural effusion on right Pneumonia Primaxin 500mg IVQ 6hour (active since 11/02/16) Telavancin 750mg IV Q24 hours (active since 11/02/16) Infectious disease (Dr. East) on board Negative legionella Diabetes Increased Levemir 60 units subqHS Novolog sliding scale subq Accuchecks q6 hours Uncontrolled; a1c: 8.9 (11/05/16) T Chol: 208 LDL:106 HDL:38 Hypertension Lisinopril 20mg PO daily Metoprolol 50mg PO Q 12hours Anemia Negative stool occult blood Ordered for iron- low, TIBC - low , %iron saturation, folate- wnl, B12- wnl, reticulocyte count- high 3.0 Hep and HIV negative Prophylactic care Pepcid 20mg PO daily for GI ppx Colace 100mg PO bid Hyponatremia with hypochloremia urine sodium low, check urine chloride, osmolality, uric acid. Unlikely SIADH as there was improvement with Saline administration Possibly losses from chest tubes, causing hypovolemic hyponatremia Continue NS@ 60 mL an hour DW Simba Elliott DO, PGY-1 <Gómez Andino - Last Filed: 11/07/16 18:53> CCU Objective - Vital Signs / Intake & Output Vital Signs (Last 4 hours): Vital Signs Pulse Resp BP Pulse Ox 11/07/16 16:30 72 11/07/16 16:00 69 18 170/83 H 99 11/07/16 15:00 68 19 161/88 H 99 Intake and Output (Last 8hrs): Intake & Output 11/07/16 11/07/16 11/07/16 06:59 14:59 22:59 Intake Total 940 935 Output Total 700 80 Balance 240 855 Weight 262 lb Intake: Intake, IV Amount 560 815 Right Upper arm 535 y port,rt upper arm 560 280 Oral 380 120 Blood Product 0 Red Blood Cells Cpd As1 0 Lr Unit [id number] Output: Chest Tube Drainage 80 Right Mid-Axillary Chest 60 Right Mid-Axillary Chest 20 #2 Urine 700 0 Urine, Voided 700 0 Other: # Bowel Movements 0 0 - Medications Active Medications: Active Medications Generic Name Dose Route Start Last Admin Trade Name Freq PRN Reason Stop Dose Admin Albuterol/Ipratropium 3 ml 11/05/16 14:00 11/07/16 13:39 Duoneb 3 Mg/0.5 Mg (3 Ml) Ud INH 3 ml RQ6 SHANNON Administration Docusate Sodium 100 mg 11/02/16 18:00 11/07/16 09:24 Colace PO 100 mg BID SHANNON Administration Enoxaparin Sodium 40 mg 11/05/16 10:30 11/07/16 09:24 Lovenox SC 40 mg DAILY SHANNON Administration Famotidine 20 mg 11/02/16 10:00 11/07/16 09:24 Pepcid PO 20 mg DAILY SHANNON Administration Furosemide 20 mg 11/07/16 22:00 Lasix IVP Q12 SHANNON Guaifenesin 600 mg 11/06/16 10:00 11/07/16 09:26 Mucinex La PO 600 mg BID SHANNON Administration Imipenem/Cilastatin Sodium 500 100 mls @ 100 mls/hr 11/02/16 18:00 11/07/16 12:49 mg/ Sodium Chloride IVPB 100 mls/hr Q6H SHANNON Administration Telavancin 750 mg/ Sodium 100 mls @ 100 mls/hr 11/02/16 19:00 11/06/16 18:09 Chloride IVPB 100 mls/hr Q24H SHANNON Administration Insulin Aspart 0 unit 11/02/16 07:30 11/07/16 12:00 Novolog SC 14 unit ACHS SHANNON Administration Protocol Insulin Detemir 60 unit 11/05/16 10:23 11/06/16 21:49 Levemir SC 60 unit HS [facility] Administration Lisinopril 20 mg 11/02/16 10:00 11/07/16 09:24 Zestril PO 20 mg DAILY SHANNON Administration Metoprolol Tartrate 50 mg 11/03/16 08:45 11/07/16 08:41 Lopressor PO 50 mg Q12H SHANNON Administration Morphine Sulfate 4 mg 11/06/16 10:06 11/07/16 01:20 Morphine IVP 4 mg Q4 PRN Administration Pain, moderate (4-7) Oxycodone/Acetaminophen 2 tab 11/05/16 10:17 11/07/16 08:41 Percocet 5/325 Mg Tab PO 11/10/16 08:46 2 tab Q6H PRN Administration Pain, moderate (4-7) Promethazine HCl/Codeine 5 ml 11/06/16 07:57 11/07/16 08:44 Phenergan/Codeine Oral Syrup PO 5 ml Q4 PRN Administration Cough Saccharomyces Boulardii 250 mg 11/04/16 10:00 11/07/16 09:24 Florastor PO 250 mg BID SHANNON Administration - Patient Studies Lab Studies: Microbiology Studies 11/03/16 Unknown Gram Stain - Final Lung Tissue Culture - Final Coagulase Neg Staphylococcus 11/02/16 Unknown Gram Stain - Final Pleural Fluid Anaerobic Culture - Final NO ANAEROBES ISOLATED. Body Fluid Culture - Final Corynebacterium Species Lab Studies 11/07/16 11/07/16 11/07/16 Range/Units 16:05 15:58 12:19 WBC (4.8-10.8) K/uL RBC (4.40-5.90) Mil/uL Hgb (12.0-18.0) g/dL Hct (35.0-51.0) % MCV (80.0-94.0) fL MCH (27.0-31.0) pg MCHC (33.0-37.0) g/dL RDW (11.5-14.5) % Plt Count (130-400) K/uL MPV (7.2-11.7) fL Neut % (Auto) (50.0-75.0) % Lymph % (Auto) (20.0-40.0) % Cochran % (Auto) (0.0-10.0) % Eos % (Auto) (0.0-4.0) % Baso % (Auto) (0.0-2.0) % Neut # (1.8-7.0) K/uL Lymph # (1.0-4.3) K/uL Cochran # (0.0-0.8) K/uL Eos # (0.0-0.7) K/uL Baso # (0.0-0.2) K/uL Sodium (132-148) mmol/L Potassium (3.6-5.2) mmol/L Chloride (98-107) mmol/L Carbon Dioxide (22-30) mmol/L Anion Gap (10-20) BUN (9-20) mg/dL Creatinine (0.8-1.5) MG/DL Est GFR ( Amer) Est GFR (Non-Af Amer) POC Glucose (mg/dL) 349 H 424 H* (65-110) mg/dL Random Glucose (75-110) mg/dL Hemoglobin A1c (4.2-6.5) % Calcium (8.6-10.4) mg/dl Magnesium (1.6-2.3) mg/dL Total Bilirubin (0.2-1.3) mg/dL AST (17-59) U/L ALT (21-72) U/L Alkaline Phosphatase (38-126) U/L Total Protein (6.3-8.3) g/dL Albumin (3.5-5.0) g/dL Globulin (2.2-3.9) gm/dL Albumin/Globulin Ratio (1.0-2.1) Urine Osmolality (300-1000) mosm/kg Ur Random Uric Acid mg/dL Fluid Source Pleural Pleural Amylase U/L C. pneumoniae IgG Ab (<1:64) C. pneumoniae IgA Ab (<1:16) C. pneumoniae IgM Ab (<1:10) C. trachomatis IgG Ab (<1:64) C. trachomatis IgA Ab (<1:16) C. trachomatis IgM Ab (<1:10) C.trachomatis Ab Interp C. psittaci IgG Ab (<1:64) C. psittaci IgA Ab (<1:16) C. psittaci IgM Ab (<1:10) C. psittaci Ab Interp Blood Type Antibody Screen 11/07/16 11/07/16 11/07/16 Range/Units 08:35 06:33 06:32 WBC 4.8 (4.8-10.8) K/uL RBC 2.71 L (4.40-5.90) Mil/uL Hgb 7.5 L (12.0-18.0) g/dL Hct 23.0 L (35.0-51.0) % MCV 84.7 (80.0-94.0) fL MCH 27.5 (27.0-31.0) pg MCHC 32.5 L (33.0-37.0) g/dL RDW 13.9 (11.5-14.5) % Plt Count 337 (130-400) K/uL MPV 9.2 (7.2-11.7) fL Neut % (Auto) 65.2 (50.0-75.0) % Lymph % (Auto) 20.8 (20.0-40.0) % Cochran % (Auto) 12.3 H (0.0-10.0) % Eos % (Auto) 1.5 (0.0-4.0) % Baso % (Auto) 0.2 (0.0-2.0) % Neut # 3.1 (1.8-7.0) K/uL Lymph # 1.0 (1.0-4.3) K/uL Cochran # 0.6 (0.0-0.8) K/uL Eos # 0.1 (0.0-0.7) K/uL Baso # 0.0 (0.0-0.2) K/uL Sodium 131 L (132-148) mmol/L Potassium 3.7 (3.6-5.2) mmol/L Chloride 95 L (98-107) mmol/L Carbon Dioxide 26 (22-30) mmol/L Anion Gap 14 (10-20) BUN 10 (9-20) mg/dL Creatinine 0.6 L (0.8-1.5) MG/DL Est GFR ( Amer) > 60 Est GFR (Non-Af Amer) > 60 POC Glucose (mg/dL) 251 H (65-110) mg/dL Random Glucose 256 H (75-110) mg/dL Hemoglobin A1c (4.2-6.5) % Calcium 7.8 L (8.6-10.4) mg/dl Magnesium 2.0 (1.6-2.3) mg/dL Total Bilirubin 0.5 (0.2-1.3) mg/dL AST 20 (17-59) U/L ALT 21 D (21-72) U/L Alkaline Phosphatase 90 (38-126) U/L Total Protein 6.4 (6.3-8.3) g/dL Albumin 2.5 L (3.5-5.0) g/dL Globulin 3.9 (2.2-3.9) gm/dL Albumin/Globulin Ratio 0.6 L (1.0-2.1) Urine Osmolality (300-1000) mosm/kg Ur Random Uric Acid mg/dL Fluid Source Pleural Amylase U/L C. pneumoniae IgG Ab (<1:64) C. pneumoniae IgA Ab (<1:16) C. pneumoniae IgM Ab (<1:10) C. trachomatis IgG Ab (<1:64) C. trachomatis IgA Ab (<1:16) C. trachomatis IgM Ab (<1:10) C.trachomatis Ab Interp C. psittaci IgG Ab (<1:64) C. psittaci IgA Ab (<1:16) C. psittaci IgM Ab (<1:10) C. psittaci Ab Interp Blood Type Antibody Screen 11/06/16 11/06/16 11/06/16 Range/Units 21:33 19:03 08:53 WBC (4.8-10.8) K/uL RBC (4.40-5.90) Mil/uL Hgb (12.0-18.0) g/dL Hct (35.0-51.0) % MCV (80.0-94.0) fL MCH (27.0-31.0) pg MCHC (33.0-37.0) g/dL RDW (11.5-14.5) % Plt Count (130-400) K/uL MPV (7.2-11.7) fL Neut % (Auto) (50.0-75.0) % Lymph % (Auto) (20.0-40.0) % Cochran % (Auto) (0.0-10.0) % Eos % (Auto) (0.0-4.0) % Baso % (Auto) (0.0-2.0) % Neut # (1.8-7.0) K/uL Lymph # (1.0-4.3) K/uL Cochran # (0.0-0.8) K/uL Eos # (0.0-0.7) K/uL Baso # (0.0-0.2) K/uL Sodium (132-148) mmol/L Potassium (3.6-5.2) mmol/L Chloride (98-107) mmol/L Carbon Dioxide (22-30) mmol/L Anion Gap (10-20) BUN (9-20) mg/dL Creatinine (0.8-1.5) MG/DL Est GFR ( Amer) Est GFR (Non-Af Amer) POC Glucose (mg/dL) 375 H (65-110) mg/dL Random Glucose (75-110) mg/dL Hemoglobin A1c (4.2-6.5) % Calcium (8.6-10.4) mg/dl Magnesium (1.6-2.3) mg/dL Total Bilirubin (0.2-1.3) mg/dL AST (17-59) U/L ALT (21-72) U/L Alkaline Phosphatase (38-126) U/L Total Protein (6.3-8.3) g/dL Albumin (3.5-5.0) g/dL Globulin (2.2-3.9) gm/dL Albumin/Globulin Ratio (1.0-2.1) Urine Osmolality 424 (300-1000) mosm/kg Ur Random Uric Acid 50.6 mg/dL Fluid Source Pleural Amylase U/L C. pneumoniae IgG Ab (<1:64) C. pneumoniae IgA Ab (<1:16) C. pneumoniae IgM Ab (<1:10) C. trachomatis IgG Ab (<1:64) C. trachomatis IgA Ab (<1:16) C. trachomatis IgM Ab (<1:10) C.trachomatis Ab Interp C. psittaci IgG Ab (<1:64) C. psittaci IgA Ab (<1:16) C. psittaci IgM Ab (<1:10) C. psittaci Ab Interp Blood Type O POSITIVE Antibody Screen Negative 11/05/16 11/03/16 11/03/16 Range/Units 07:56 15:06 07:16 WBC (4.8-10.8) K/uL RBC (4.40-5.90) Mil/uL Hgb (12.0-18.0) g/dL Hct (35.0-51.0) % MCV (80.0-94.0) fL MCH (27.0-31.0) pg MCHC (33.0-37.0) g/dL RDW (11.5-14.5) % Plt Count (130-400) K/uL MPV (7.2-11.7) fL Neut % (Auto) (50.0-75.0) % Lymph % (Auto) (20.0-40.0) % Cochran % (Auto) (0.0-10.0) % Eos % (Auto) (0.0-4.0) % Baso % (Auto) (0.0-2.0) % Neut # (1.8-7.0) K/uL Lymph # (1.0-4.3) K/uL Cochran # (0.0-0.8) K/uL Eos # (0.0-0.7) K/uL Baso # (0.0-0.2) K/uL Sodium (132-148) mmol/L Potassium (3.6-5.2) mmol/L Chloride (98-107) mmol/L Carbon Dioxide (22-30) mmol/L Anion Gap (10-20) BUN (9-20) mg/dL Creatinine (0.8-1.5) MG/DL Est GFR ( Amer) Est GFR (Non-Af Amer) POC Glucose (mg/dL) (65-110) mg/dL Random Glucose (75-110) mg/dL Hemoglobin A1c 8.9 H D (4.2-6.5) % Calcium (8.6-10.4) mg/dl Magnesium (1.6-2.3) mg/dL Total Bilirubin (0.2-1.3) mg/dL AST (17-59) U/L ALT (21-72) U/L Alkaline Phosphatase (38-126) U/L Total Protein (6.3-8.3) g/dL Albumin (3.5-5.0) g/dL Globulin (2.2-3.9) gm/dL Albumin/Globulin Ratio (1.0-2.1) Urine Osmolality (300-1000) mosm/kg Ur Random Uric Acid mg/dL Fluid Source Pleural Amylase <10 U/L C. pneumoniae IgG Ab 1:64 H (<1:64) C. pneumoniae IgA Ab <1:16 (<1:16) C. pneumoniae IgM Ab <1:10 (<1:10) C. trachomatis IgG Ab <1:64 (<1:64) C. trachomatis IgA Ab <1:16 (<1:16) C. trachomatis IgM Ab <1:10 (<1:10) C.trachomatis Ab Interp see note C. psittaci IgG Ab <1:64 (<1:64) C. psittaci IgA Ab <1:16 (<1:16) C. psittaci IgM Ab <1:10 (<1:10) C. psittaci Ab Interp see note Blood Type Antibody Screen Laboratory Results - last 24 hr 11/03/16 11/03/16 11/05/16 07:16 15:06 07:56 WBC RBC Hgb Hct MCV MCH MCHC RDW Plt Count MPV Neut % (Auto) Lymph % (Auto) Cochran % (Auto) Eos % (Auto) Baso % (Auto) Neut # Lymph # Cochran # Eos # Baso # Sodium Potassium Chloride Carbon Dioxide Anion Gap BUN Creatinine Est GFR ( Amer) Est GFR (Non-Af Amer) POC Glucose (mg/dL) Random Glucose Hemoglobin A1c 8.9 H D Calcium Magnesium Total Bilirubin AST ALT Alkaline Phosphatase Total Protein Albumin Globulin Albumin/Globulin Ratio Urine Osmolality Ur Random Uric Acid Fluid Source Pleural Amylase <10 C. pneumoniae IgG Ab 1:64 H C. pneumoniae IgA Ab <1:16 C. pneumoniae IgM Ab <1:10 C. trachomatis IgG Ab <1:64 C. trachomatis IgA Ab <1:16 C. trachomatis IgM Ab <1:10 C.trachomatis Ab Interp see note C. psittaci IgG Ab <1:64 C. psittaci IgA Ab <1:16 C. psittaci IgM Ab <1:10 C. psittaci Ab Interp see note Blood Type Antibody Screen 11/06/16 11/06/16 11/06/16 08:53 19:03 21:33 WBC RBC Hgb Hct MCV MCH MCHC RDW Plt Count MPV Neut % (Auto) Lymph % (Auto) Cochran % (Auto) Eos % (Auto) Baso % (Auto) Neut # Lymph # Cochran # Eos # Baso # Sodium Potassium Chloride Carbon Dioxide Anion Gap BUN Creatinine Est GFR ( Amer) Est GFR (Non-Af Amer) POC Glucose (mg/dL) 375 H Random Glucose Hemoglobin A1c Calcium Magnesium Total Bilirubin AST ALT Alkaline Phosphatase Total Protein Albumin Globulin Albumin/Globulin Ratio Urine Osmolality 424 Ur Random Uric Acid 50.6 Fluid Source Pleural Amylase C. pneumoniae IgG Ab C. pneumoniae IgA Ab C. pneumoniae IgM Ab C. trachomatis IgG Ab C. trachomatis IgA Ab C. trachomatis IgM Ab C.trachomatis Ab Interp C. psittaci IgG Ab C. psittaci IgA Ab C. psittaci IgM Ab C. psittaci Ab Interp Blood Type O POSITIVE Antibody Screen Negative 11/07/16 11/07/16 11/07/16 06:32 06:33 08:35 WBC 4.8 RBC 2.71 L Hgb 7.5 L Hct 23.0 L MCV 84.7 MCH 27.5 MCHC 32.5 L RDW 13.9 Plt Count 337 MPV 9.2 Neut % (Auto) 65.2 Lymph % (Auto) 20.8 Cochran % (Auto) 12.3 H Eos % (Auto) 1.5 Baso % (Auto) 0.2 Neut # 3.1 Lymph # 1.0 Cochran # 0.6 Eos # 0.1 Baso # 0.0 Sodium 131 L Potassium 3.7 Chloride 95 L Carbon Dioxide 26 Anion Gap 14 BUN 10 Creatinine 0.6 L Est GFR ( Amer) > 60 Est GFR (Non-Af Amer) > 60 POC Glucose (mg/dL) 251 H Random Glucose 256 H Hemoglobin A1c Calcium 7.8 L Magnesium 2.0 Total Bilirubin 0.5 AST 20 ALT 21 D Alkaline Phosphatase 90 Total Protein 6.4 Albumin 2.5 L Globulin 3.9 Albumin/Globulin Ratio 0.6 L Urine Osmolality Ur Random Uric Acid Fluid Source Pleural Amylase C. pneumoniae IgG Ab C. pneumoniae IgA Ab C. pneumoniae IgM Ab C. trachomatis IgG Ab C. trachomatis IgA Ab C. trachomatis IgM Ab C.trachomatis Ab Interp C. psittaci IgG Ab C. psittaci IgA Ab C. psittaci IgM Ab C. psittaci Ab Interp Blood Type Antibody Screen 11/07/16 11/07/16 11/07/16 12:19 15:58 16:05 WBC RBC Hgb Hct MCV MCH MCHC RDW Plt Count MPV Neut % (Auto) Lymph % (Auto) Cochran % (Auto) Eos % (Auto) Baso % (Auto) Neut # Lymph # Cochran # Eos # Baso # Sodium Potassium Chloride Carbon Dioxide Anion Gap BUN Creatinine Est GFR ( Amer) Est GFR (Non-Af Amer) POC Glucose (mg/dL) 424 H* 349 H Random Glucose Hemoglobin A1c Calcium Magnesium Total Bilirubin AST ALT Alkaline Phosphatase Total Protein Albumin Globulin Albumin/Globulin Ratio Urine Osmolality Ur Random Uric Acid Fluid Source Pleural Pleural Amylase C. pneumoniae IgG Ab C. pneumoniae IgA Ab C. pneumoniae IgM Ab C. trachomatis IgG Ab C. trachomatis IgA Ab C. trachomatis IgM Ab C.trachomatis Ab Interp C. psittaci IgG Ab C. psittaci IgA Ab C. psittaci IgM Ab C. psittaci Ab Interp Blood Type Antibody Screen Critical Care Progress Note - Nutrition Nutrition: Nutrition Category Date Time Status Consistent Carbohydrate [DIET] Diets 11/03/16 Dinner Active Assessment/Plan (1) Empyema Current Visit: Yes Status: Acute Attending/Attestation - Attestation I have personally seen and examined this patient.: Yes I have fully participated in the care of the patient.: Yes I have reviewed all pertinent clinical information: Yes Notes (Text): 11/07/16 18:52 Patient seen and examined in the intensive care unit. Case discussed with house staff in the morning rounds. Continue antibiotics for empyema Status post chest tube insertion and drainage Transfuse PRBCs as necessary and consider hematology evaluation
--- NOTE | 2016-11-07 14:28 | CP.PCM.PN ---
Subjective - Date & Time of Evaluation Date of Evaluation: 11/07/16 Time of Evaluation: 14:24 - Subjective Subjective: States: "doing well" VSS. HCT-27-plan to tx. [id number]. Chest [id number]-bt air leak;140/40/24hrs. cxr-good reexpansion of right lung. a/p: 1. Satisfactory postop. 2. Chest tube drainage for H/H. 3. Continue antibiotic. . Objective - Vital Signs/Intake and Output Vital Signs (last 24 hours): Temp Pulse Resp BP Pulse Ox 98 F 70 18 126/72 98 11/07/16 14:00 11/07/16 14:00 11/07/16 14:00 11/07/16 14:00 11/07/16 14:00 Intake and Output: 11/07/16 11/07/16 06:59 18:59 Intake Total 1480 935 Output Total 1600 80 Balance -120 855 - Medications Medications: Current Medications Albuterol/Ipratropium (Duoneb 3 Mg/0.5 Mg (3 Ml) Ud) 3 ml INH RQ6 [facility] Last Admin: 11/07/16 13:39 Dose: 3 ml Docusate Sodium (Colace) 100 mg PO BID [facility] Last Admin: 11/07/16 09:24 Dose: 100 mg Enoxaparin Sodium (Lovenox) 40 mg SC DAILY [facility] Last Admin: 11/07/16 09:24 Dose: 40 mg Famotidine (Pepcid) 20 mg PO DAILY [facility] Last Admin: 11/07/16 09:24 Dose: 20 mg Furosemide (Lasix) 20 mg IVP DAILY [facility] Last Admin: 11/07/16 11:00 Dose: 20 mg Guaifenesin (Mucinex La) 600 mg PO BID [facility] Last Admin: 11/07/16 09:26 Dose: 600 mg Imipenem/Cilastatin Sodium 500 (mg/ Sodium Chloride) 100 mls @ 100 mls/hr IVPB Q6H [facility] Last Admin: 11/07/16 12:49 Dose: 100 mls/hr Telavancin 750 mg/ Sodium (Chloride) 100 mls @ 100 mls/hr IVPB Q24H [facility] Last Admin: 11/06/16 18:09 Dose: 100 mls/hr Sodium Chloride (Sodium Chloride 0.9%) 1,000 mls @ 60 mls/hr IV .[id number] [facility] Last Admin: 11/06/16 19:48 Dose: 60 mls/hr Insulin Aspart (Novolog) 0 unit SC ACHS [facility] PRN Reason: Protocol Last Admin: 11/07/16 12:00 Dose: 14 unit Insulin Detemir (Levemir) 60 unit SC HS [facility] Last Admin: 11/06/16 21:49 Dose: 60 unit Lisinopril (Zestril) 20 mg PO DAILY [facility] Last Admin: 11/07/16 09:24 Dose: 20 mg Metoprolol Tartrate (Lopressor) 50 mg PO Q12H [facility] Last Admin: 11/07/16 08:41 Dose: 50 mg Morphine Sulfate (Morphine) 4 mg IVP Q4 PRN PRN Reason: Pain, moderate (4-7) Last Admin: 11/07/16 01:20 Dose: 4 mg Oxycodone/Acetaminophen (Percocet 5/325 Mg Tab) 2 tab PO Q6H PRN PRN Reason: Pain, moderate (4-7) Stop: 11/10/16 08:46 Last Admin: 11/07/16 08:41 Dose: 2 tab Promethazine HCl/Codeine (Phenergan/Codeine Oral Syrup) 5 ml PO Q4 PRN PRN Reason: Cough Last Admin: 11/07/16 08:44 Dose: 5 ml Saccharomyces Boulardii (Florastor) 250 mg PO BID [facility] Last Admin: 11/07/16 09:24 Dose: 250 mg - Labs Labs: 11/07/16 06:32 11/07/16 06:33 PT 15.2 SECONDS (9.7-12.2) H 11/03/16 08:05 INR 1.3 11/03/16 08:05 APTT 32 SECONDS (21-34) 11/03/16 08:05
[2016-11-07 16:00] LABS: BODY FLUID TYPE PLEURAL
[2016-11-07] MEDS: Sodium Chloride 0.9% 1,000 ML IV SCH (16:22)
[2016-11-07 16:59] LABS: C. PSITTACI IGG <1:64 (<1:64); C. TRACHOMATIS IGG <1:64 (<1:64)
[2016-11-07] MEDS: Telavancin Hydrochloride 750 MG in Sodium Chloride 0.9% 100 ML IVPB SCH (18:27)
--- NOTE | 2016-11-07 18:29 | CP.PCM.PN ---
Subjective - Date & Time of Evaluation Date of Evaluation: 11/07/16 Time of Evaluation: 18:23 - Subjective Subjective: INFECTIOUS DISEASE ICU#15 PROGRESS NOTE MARIA DIAZ MD, FACP 11/07/2106 CHART REVIEWED PT EXAMINED CASE DISCUSSED CLINICALLY PT SITTING UP AND TALKING, COMPLAINING OF POST OP PAIN ONLY. LABS STILL SHOW ELEVATED BS AND ANEMIA REQUIRING MORE TRANSFUSIONS. HAVE ADJUSTED HIS PRIMAXIN TO 1 GM IVPB Q 8HRS. CHEST TUBES STILL DRAINING RECOMMEND HEME/ CONSULTATION WITH FLOR MCKEON AND MICHELLE PALATHINGAL. CONTINUE DM MANAGEMENT. Objective - Vital Signs/Intake and Output Vital Signs (last 24 hours): Temp Pulse Resp BP Pulse Ox 98 F 72 18 170/83 H 99 11/07/16 14:00 11/07/16 16:30 11/07/16 16:00 11/07/16 16:00 11/07/16 16:00 Intake and Output: 11/07/16 11/07/16 06:59 18:59 Intake Total 1480 935 Output Total 1600 80 Balance -120 855 - Medications Medications: Current Medications Albuterol/Ipratropium (Duoneb 3 Mg/0.5 Mg (3 Ml) Ud) 3 ml INH RQ6 [facility] Last Admin: 11/07/16 13:39 Dose: 3 ml Docusate Sodium (Colace) 100 mg PO BID [facility] Last Admin: 11/07/16 18:19 Dose: Not Given Enoxaparin Sodium (Lovenox) 40 mg SC DAILY [facility] Last Admin: 11/07/16 09:24 Dose: 40 mg Famotidine (Pepcid) 20 mg PO DAILY [facility] Last Admin: 11/07/16 09:24 Dose: 20 mg Furosemide (Lasix) 20 mg IVP Q12 [facility] Guaifenesin (Mucinex La) 600 mg PO BID [facility] Last Admin: 11/07/16 09:26 Dose: 600 mg Imipenem/Cilastatin Sodium 500 (mg/ Sodium Chloride) 100 mls @ 100 mls/hr IVPB Q6H [facility] Last Admin: 11/07/16 18:23 Dose: 100 mls/hr Telavancin 750 mg/ Sodium (Chloride) 100 mls @ 100 mls/hr IVPB Q24H [facility] Last Admin: 11/06/16 18:09 Dose: 100 mls/hr Insulin Aspart (Novolog) 0 unit SC ACHS [facility] PRN Reason: Protocol Last Admin: 11/07/16 12:00 Dose: 14 unit Insulin Detemir (Levemir) 60 unit SC HS [facility] Last Admin: 11/06/16 21:49 Dose: 60 unit Lisinopril (Zestril) 20 mg PO DAILY [facility] Last Admin: 11/07/16 09:24 Dose: 20 mg Metoprolol Tartrate (Lopressor) 50 mg PO Q12H [facility] Last Admin: 11/07/16 08:41 Dose: 50 mg Morphine Sulfate (Morphine) 4 mg IVP Q4 PRN PRN Reason: Pain, moderate (4-7) Last Admin: 11/07/16 01:20 Dose: 4 mg Oxycodone/Acetaminophen (Percocet 5/325 Mg Tab) 2 tab PO Q6H PRN PRN Reason: Pain, moderate (4-7) Stop: 11/10/16 08:46 Last Admin: 11/07/16 08:41 Dose: 2 tab Promethazine HCl/Codeine (Phenergan/Codeine Oral Syrup) 5 ml PO Q4 PRN PRN Reason: Cough Last Admin: 11/07/16 08:44 Dose: 5 ml Saccharomyces Boulardii (Florastor) 250 mg PO BID [facility] Last Admin: 11/07/16 09:24 Dose: 250 mg - Labs Labs: 11/07/16 06:32 11/07/16 06:33 PT 15.2 SECONDS (9.7-12.2) H 11/03/16 08:05 INR 1.3 11/03/16 08:05 APTT 32 SECONDS (21-34) 11/03/16 08:05 - Constitutional Appears: Non-toxic, In Acute Distress - Head Exam Head Exam: ATRAUMATIC - Eye Exam Eye Exam: Normal appearance - ENT Exam ENT Exam: Mucous Membranes Moist - Respiratory Exam Respiratory Exam: Chest Wall Tenderness, Decreased Breath Sounds - Cardiovascular Exam Cardiovascular Exam: Tachycardia - GI/Abdominal Exam GI & Abdominal Exam: Soft, Normal Bowel Sounds. absent: Tenderness - Rectal Exam Rectal Exam: Deferred - Neurological Exam Neurological Exam: Alert, Awake, Oriented x3 - Psychiatric Exam Psychiatric exam: Anxious, Depressed - Skin Skin Exam: Warm Assessment and Plan - Assessment and Plan (Free Text) Assessment: SEVERE RIGHT LUNG EMPYEMA SEVERE ANEMIA SEVERE DM TYPE 2 WATCH FOR DVT'S DISCUSSED WITH DR LEWIS.
[2016-11-07] MEDS: Insulin Detemir 100 units/ml Vial (Levemir) SC SCH (21:36)
[2016-11-07 23:05] LABS: BF GROSS APPEARANCE BLOODY (CLEAR)
[2016-11-07 23:07] LABS: BODY FLUID TOTAL COUNT 100 (0-0)
[2016-11-08] MEDS: Albuterol-Ipratrop 3 mg / 0.5 (3 ml) UD INH SCH ×4 (01:19→21:15)
--- NOTE | 2016-11-08 05:27 | CP.PCM.PN ---
Subjective - Date & Time of Evaluation Date of Evaluation: 11/07/16 Time of Evaluation: 17:45 - Subjective Subjective: Medical Attending Note (Covering Dr. Hernandez) Follow-up: empyema, pleural effusion, pneumonia, history of influenza, anemia ( requiring blood transfusion), uncontrolled diabetes Patient seen, examined and case discussed with ICU, CT surgery and infectious disease. Patient reports pleuritic chest pain and cough. Patient report he has chills and mild trace edema b/l lower extremities. Patient's hemoglobin slowly downtrending, requiring blood transfusion today. Objective - Vital Signs/Intake and Output Vital Signs (last 24 hours): Temp Pulse Resp BP Pulse Ox 98.1 F 91 H 25 H 142/73 98 11/08/16 00:00 11/08/16 01:30 11/08/16 01:30 11/08/16 01:11 11/08/16 01:30 Intake and Output: 11/07/16 11/08/16 18:59 06:59 Intake Total 935 Output Total 80 Balance 855 - Medications Medications: Current Medications Albuterol/Ipratropium (Duoneb 3 Mg/0.5 Mg (3 Ml) Ud) 3 ml INH RQ6 [facility] Last Admin: 11/08/16 01:19 Dose: 3 ml Docusate Sodium (Colace) 100 mg PO BID [facility] Last Admin: 11/07/16 18:19 Dose: Not Given Enoxaparin Sodium (Lovenox) 40 mg SC DAILY [facility] Last Admin: 11/07/16 09:24 Dose: 40 mg Famotidine (Pepcid) 20 mg PO DAILY [facility] Last Admin: 11/07/16 09:24 Dose: 20 mg Furosemide (Lasix) 20 mg IVP Q12 [facility] Last Admin: 11/07/16 21:11 Dose: 20 mg Guaifenesin (Mucinex La) 600 mg PO BID [facility] Last Admin: 11/07/16 18:28 Dose: 600 mg Telavancin 750 mg/ Sodium (Chloride) 100 mls @ 100 mls/hr IVPB Q24H [facility] Last Admin: 11/07/16 18:27 Dose: 100 mls/hr Imipenem/Cilastatin Sodium 1, (000 mg/ Sodium Chloride) 250 mls @ 250 mls/hr IVPB Q8H [facility] Last Admin: 11/07/16 23:20 Dose: 250 mls/hr Insulin Aspart (Novolog) 0 unit SC ACHS [facility] PRN Reason: Protocol Last Admin: 11/07/16 21:31 Dose: Not Given Insulin Detemir (Levemir) 60 unit SC HS [facility] Last Admin: 11/07/16 21:36 Dose: 60 unit Lisinopril (Zestril) 20 mg PO DAILY [facility] Last Admin: 11/07/16 09:24 Dose: 20 mg Metoprolol Tartrate (Lopressor) 50 mg PO Q12H [facility] Last Admin: 11/07/16 21:12 Dose: 50 mg Morphine Sulfate (Morphine) 4 mg IVP Q4 PRN PRN Reason: Pain, moderate (4-7) Last Admin: 11/07/16 18:38 Dose: 4 mg Oxycodone/Acetaminophen (Percocet 5/325 Mg Tab) 2 tab PO Q6H PRN PRN Reason: Pain, moderate (4-7) Stop: 11/10/16 08:46 Last Admin: 11/07/16 21:14 Dose: 2 tab Promethazine HCl/Codeine (Phenergan/Codeine Oral Syrup) 5 ml PO Q4 PRN PRN Reason: Cough Last Admin: 11/07/16 08:44 Dose: 5 ml Saccharomyces Boulardii (Florastor) 250 mg PO BID [facility] Last Admin: 11/07/16 18:26 Dose: 250 mg - Labs Labs: 11/07/16 06:32 11/07/16 06:33 PT 15.2 SECONDS (9.7-12.2) H 11/03/16 08:05 INR 1.3 11/03/16 08:05 APTT 32 SECONDS (21-34) 11/03/16 08:05 - Constitutional Appears: Non-toxic, No Acute Distress - Head Exam Head Exam: NORMAL INSPECTION Additional comments: 2 chest tubes; right side - Eye Exam Eye Exam: EOMI - ENT Exam ENT Exam: Mucous Membranes Dry - Respiratory Exam Respiratory Exam: NORMAL BREATHING PATTERN. absent: Stridor - Cardiovascular Exam Cardiovascular Exam: REGULAR RHYTHM, +S1, +S2 - GI/Abdominal Exam GI & Abdominal Exam: Soft, Normal Bowel Sounds. absent: Distended, Firm, Guarding, Rigid, Tenderness, Rebound - Extremities Exam Extremities Exam: Pedal Edema (trace b/l pitting edema) - Neurological Exam Neurological Exam: Alert, Awake, Oriented x3 - Skin Skin Exam: Dry, Normal Color, Warm Assessment and Plan (1) Empyema Status: Acute (2) Pleural effusion on right Status: Acute (3) Pneumonia Status: Acute (4) Influenza Status: Acute (5) Diabetes mellitus Status: Chronic (6) HTN (hypertension) Status: Chronic (7) Hyponatremia Status: Acute (8) Prophylactic measure Status: Acute - Assessment and Plan (Free Text) Assessment: (1) Empyema Assessment and Plan: * CT surgery (Dr. Villagomez) on board * Infectious disease (Dr. East) on board * Hx of influenza (10/02/16) * Primaxin 500mg IV Q 6hout (active since 11/02/16) and adjusted to Primaxin 1gram IV Q 8hours * Telavancin 750mg IV Q24 hours (active since 11/02/16) * Chest Xray (11/03/16): history of right thoracotomy-no gross resection of a rib appreciated. Extensive opacities overlying the mid right hemithorax. No pneumothorax seen. No mediastinal shift noted. Right pleural parenchymal opacity consistent w residual right loculated pleural fluid and probably pulmonary coalescent interstitial edema. * Chest Xray (11/04/16): no significant interval change * Chest CT (11/02/16): No CT evidence for acute pulmonary embolism. Large right pleural effusion with compressive atelectasis in the lower love. Superimposed pneumonia cannot be excluded. Follow-up advised. * Operative note: VATS coverted to thoractomy, parietal pleurectomy, decortication, wedge resection of right lower love. Evacuation of empyema and fibrous exudate (given PRBC during OR)-->2 chest tubes; monitor outputs * Aerboic, anaerobic: no growth, Blood culture: No growth thus far, fungus culture: no elements, AFB, gram stain: gram positive cocci, many PMNs, mycobacterium, tissue culture: no growth * Echo (11/02/16): EF: 65% (official report available in the EMR) * Negative Hepatitis panel, negative HIV * Fluid studies: elevated WBC; all cells are deteriorated * Chest tubes continue to drain Status: Acute (2) Pleural effusion on right Status: Acute (3) Pneumonia Assessment and Plan: * Primaxin 1000mg IVQ 8hour (active since 11/02/16) * Telavancin 750mg IV Q24 hours (active since 11/02/16) * Infectious disease (Dr. East) on board * Negative legionella, negative mycoplasma IgM, negative Strep, negative HIV, negative hepatitis * Florastor 250mg PO bid * Phenergan codeine 5ml PO Q 4hour PRN cough * Mucinex 600mg PO bid * pending chylamdia studies * indeterminate quantaferon * Dr. Andino (covering Dr. Hernandez) for pulmonary Status: Acute (4) Diabetes * Levemir 60 units subqHS * Lisinopril 20mg PO daily * Metoprolol tarate 50mg PO Q 12hour * Novolog sliding scale subq * Accuchecks q6 hours * Uncontrolled; a1c: 11.6 (10/16/16)-->8.9 * T Chol: 208 LDL:106 HDL:38 Status: Chronic (5) Hypertension * Lisinopril 20mg PO daily * Metoprolol 50mg PO Q 12hours (6) Anemia * Negative stool occult blood * ordered for Low iron, TIBC, normal %iron saturation, normal folate, normal B12 , increased reticulocyte count-->will need iron supplementation * Note: patient is post OR POD 4 * Given Blood transfusion today-->1 unit of PRBC * Recommended for heme-onc evaluation * Patient on prior admission hgb 12 * ordered for stool occult blood * monitor for bloody output from chest tube (7) Hyponatremia * improving (8) Prophylactic care * Pepcid 20mg PO daily for GI ppx * Lovenox 40mg subqdaily * Colace 100mg PO bid * Florastor 250mg PO bid * Percocet 2 tab PO Q 6hour PRN pain (9) B/L leg edema * trace; pitting * ordered for doppler b/l LE-->pending * Increased Lasix 20mg IV Q 12hours
[2016-11-08 06:46] LABS: BASO % 0.3 % (0.0-2.0); CHLORIDE 93 mmol/L (98-107); EOS # 0.1 K/uL (0.0-0.7); EOS % 1.3 % (0.0-4.0); HEMATOCRIT 24.7 % (35.0-51.0); LYMPH # 1.1 K/uL (1.0-4.3); LYMPH % 18.1 % (20.0-40.0); MEAN CELL VOLUME 83.5 fL (80.0-94.0); MEAN CORPUSCULAR HEMOGLOBIN 27.5 pg (27.0-31.0); MEAN CORPUSCULAR HGB CONC 32.9 g/dL (33.0-37.0); MEAN PLATELET VOLUME 9.4 fL (7.2-11.7); MONO # 0.8 K/uL (0.0-0.8); RED CELL DISTRIBUTION WIDTH 14.6 % (11.5-14.5); SODIUM 129 mmol/L (132-148); WHITE BLOOD COUNT 6.1 K/uL (4.8-10.8)
[2016-11-08 06:47] LABS: POTASSIUM 3.4 mmol/L (3.6-5.2)
[2016-11-08 06:48] LABS: GFR AFRICAN-AMERICAN > 60
[2016-11-08 06:49] LABS: ALKALINE PHOSPHATASE 93 U/L (38-126); ALT/SGPT 22 U/L (21-72); AST/SGOT 23 U/L (17-59); BILIRUBIN,TOTAL 0.6 mg/dL (0.2-1.3); BLOOD UREA NITROGEN 13 mg/dL (9-20); CARBON DIOXIDE 28 mmol/L (22-30); GLUCOSE,RANDOM 192 mg/dL (75-110); TOTAL PROTEIN 6.6 g/dL (6.3-8.3)
[2016-11-08 06:50] LABS: CALCIUM 7.7 mg/dl (8.6-10.4); MAGNESIUM 1.7 mg/dL (1.6-2.3)
[2016-11-08 06:54] LABS: ALB/GLOB RATIO 0.7 (1.0-2.1)
[2016-11-08] MEDS ORDERED: Carbachol 0.01% IO ONE (07:29)
[2016-11-08] MEDS ORDERED: Povidone Iodine Ophthalmic 5% Soln ONE (07:29)
[2016-11-08] MEDS ORDERED: Tobramycin/Dexamethasone (Tobradex) Opth Sol (2.5 ml) ONE (07:29)
[2016-11-08] MEDS ORDERED: Lidocaine 2% Inj (20ml) ONE (07:30)
[2016-11-08] MEDS ORDERED: Tobramycin/Dexamethasone OPHT OINT ONE (07:30)
[2016-11-08] MEDS ORDERED: Tetracaine 0.5% Ophth (OR ONLY) ONE (07:30)
[2016-11-08 07:40] LABS: CHLORIDE URINE 38 mmol/L (32-290)
[2016-11-08] MEDS: (Novolog) Insulin Aspart, Recombinant 100 u/ml 10 ml vial SC SCH ×4 (08:03→21:12)
--- NOTE | 2016-11-08 08:03 | CP.PCM.PN ---
<Florencio Wade - Last Filed: 11/08/16 18:40> Subjective - Date & Time of Evaluation Date of Evaluation: 11/08/16 Time of Evaluation: 08:00 - Subjective Subjective: Cardiology Progress Note Dr. Lin Patient seen and examined at the bedside. No acute distress. No acute events overnight. Patient is POD #5 s/p thoracotomy with Dr. Villagomez. The patient notes improved SOB and chest pain. The patient has been transferred out of the ICU. The patient is resting comfortably in the bed. The patient also reports improvement in his lower extremity swelling from yesterday. He denies all other complaints this morning. 12 point review of systems was completed and negative except for the above, stated complaints. Objective - Vital Signs/Intake and Output Vital Signs (last 24 hours): Temp Pulse Resp BP Pulse Ox 99.7 F H 96 H 20 139/75 96 11/08/16 07:54 11/08/16 07:54 11/08/16 07:54 11/08/16 07:54 11/08/16 07:54 - Medications Medications: Current Medications Albuterol/Ipratropium (Duoneb 3 Mg/0.5 Mg (3 Ml) Ud) 3 ml INH RQ6 [facility] Last Admin: 11/08/16 01:19 Dose: 3 ml Docusate Sodium (Colace) 100 mg PO BID [facility] Last Admin: 11/07/16 18:19 Dose: Not Given Enoxaparin Sodium (Lovenox) 40 mg SC DAILY [facility] Last Admin: 11/07/16 09:24 Dose: 40 mg Famotidine (Pepcid) 20 mg PO DAILY [facility] Last Admin: 11/07/16 09:24 Dose: 20 mg Furosemide (Lasix) 20 mg IVP Q12 [facility] Last Admin: 11/07/16 21:11 Dose: 20 mg Guaifenesin (Mucinex La) 600 mg PO BID [facility] Last Admin: 11/07/16 18:28 Dose: 600 mg Telavancin 750 mg/ Sodium (Chloride) 100 mls @ 100 mls/hr IVPB Q24H [facility] Last Admin: 11/07/16 18:27 Dose: 100 mls/hr Imipenem/Cilastatin Sodium 1, (000 mg/ Sodium Chloride) 250 mls @ 250 mls/hr IVPB Q8H [facility] Last Admin: 11/07/16 23:20 Dose: 250 mls/hr Insulin Aspart (Novolog) 0 unit SC ACHS [facility] PRN Reason: Protocol Last Admin: 11/07/16 21:31 Dose: Not Given Insulin Detemir (Levemir) 60 unit SC HS [facility] Last Admin: 11/07/16 21:36 Dose: 60 unit Lisinopril (Zestril) 20 mg PO DAILY [facility] Last Admin: 11/07/16 09:24 Dose: 20 mg Metoprolol Tartrate (Lopressor) 50 mg PO Q12H [facility] Last Admin: 11/07/16 21:12 Dose: 50 mg Morphine Sulfate (Morphine) 4 mg IVP Q4 PRN PRN Reason: Pain, moderate (4-7) Last Admin: 11/08/16 05:53 Dose: 4 mg Oxycodone/Acetaminophen (Percocet 5/325 Mg Tab) 2 tab PO Q6H PRN PRN Reason: Pain, moderate (4-7) Stop: 11/10/16 08:46 Last Admin: 11/07/16 21:14 Dose: 2 tab Promethazine HCl/Codeine (Phenergan/Codeine Oral Syrup) 5 ml PO Q4 PRN PRN Reason: Cough Last Admin: 11/07/16 08:44 Dose: 5 ml Saccharomyces Boulardii (Florastor) 250 mg PO BID [facility] Last Admin: 11/07/16 18:26 Dose: 250 mg - Labs Labs: 11/08/16 06:29 11/08/16 06:29 PT 15.2 SECONDS (9.7-12.2) H 11/03/16 08:05 INR 1.3 11/03/16 08:05 APTT 32 SECONDS (21-34) 11/03/16 08:05 - Additional Findings Additional findings: - Constitutional Appears: Well, No Acute Distress - Head Exam Head Exam: ATRAUMATIC, NORMAL INSPECTION, NORMOCEPHALIC - Eye Exam Eye Exam: EOMI, Normal appearance Pupil Exam: NORMAL ACCOMODATION - ENT Exam ENT Exam: Mucous Membranes Moist, Normal Exam - Neck Exam Neck exam: Positive for: Full Rom, Normal Inspection. Negative for: Tenderness - Respiratory Exam Respiratory Exam: Decreased Breath Sounds (right lung mid and base), NORMAL BREATHING PATTERN. absent: Accessory Muscle Use, Clear to Auscultation Bilateral, Rales, Rhonchi, Wheezes, Respiratory Distress - Cardiovascular Exam Cardiovascular Exam: REGULAR RHYTHM, +S1, +S2, RRR. absent: Tachycardia, Diastolic murmur, RRR, Systolic Murmur - GI/Abdominal Exam GI & Abdominal Exam: Normal Bowel Sounds, Soft. absent: Distended, Firm, Guarding, Tenderness - Extremities Exam Extremities exam: Positive for: normal capillary refill, normal inspection, pedal pulses present, Edema (1+ pitting b/l le) - Back Exam Back exam: NORMAL INSPECTION. absent: CVA tenderness (L), CVA tenderness (R) - Neurological Exam Neurological exam: Alert, CN II-XII Intact, Oriented x3 - Skin Skin Exam: Dry, Intact, Normal Color, Warm Assessment and Plan (1) Tachycardia Assessment & Plan: will continue to monitor Lopressor 50mg PO q12 continue tele monitoring 11/04/16 ELG- sinus tachycardia, physiologic axis, normal OH interval, normal QRS duration, prolonged QTc, poor R wave progression, no ST or T wave abnormalities 11/02/16 EKG- sinus tachycardia, right axis deviation, normal OH interval, normal QRS duration, prolonged QTc, nonspecific ST/T wave abnormality 11/03/15 Echo- EF 53%, normal diastolic filling pressures Troponin negative x 2 (<0.0120 x 2) CK-MB negative x 2 (1.00 > 0.63) BNP 102 (normal) Case Discussed with Dr. Delia Wade PGY1 Status: Resolved (2) Bilateral lower extremity edema Assessment & Plan: improved from prior examination- 1+ pitting Lasix 20mg IVP q12 Tatum hose stockings ordered Status: Acute (3) Pre-procedural cardiovascular examination Assessment & Plan: Cardiac Risk Assessment- (Low Risk for VATS) - Detsky Score 10: Class I - Low Risk - Jenkins Score 3: Class I - Low Risk - Tunde Score 2- Moderate Risk Status: Resolved <Saravanan Lin - Last Filed: 12/29/16 09:30> Objective - Vital Signs/Intake and Output Vital Signs (last 24 hours): Temp Pulse Resp BP Pulse Ox 97.7 F 82 18 120/83 95 11/30/16 08:06 11/30/16 08:06 11/30/16 08:06 11/30/16 08:06 11/30/16 08:06 - Labs Labs: 11/29/16 07:08 11/29/16 07:08 PT 14.4 SECONDS (9.7-12.2) H 11/29/16 07:08 INR 1.3 11/29/16 07:08 APTT 35 SECONDS (21-34) H 11/29/16 07:08 Assessment and Plan (1) HTN (hypertension) Status: Chronic (2) Tachycardia Status: Resolved Attending/Attestation - Attestation I have personally seen and examined this patient.: Yes I have fully participated in the care of the patient.: Yes I have reviewed all pertinent clinical information, including history, physical exam and plan: Yes Notes (Text): 12/29/16 09:29 supplement potassium continue TATUM reddy
[2016-11-08] MEDS: Saccharomyces Boulardi 250 mg Cap PO SCH ×2 (09:39→17:47)
[2016-11-08] MEDS: Enoxaparin 40 mg Syringe SC SCH (09:40)
[2016-11-08] MEDS: guaiFENesin 600 mg ER Tab PO SCH ×2 (09:41→17:48)
--- NOTE | 2016-11-08 10:19 | CP.PCM.PN ---
Subjective - Date & Time of Evaluation Date of Evaluation: 11/08/16 Time of Evaluation: 10:16 - Subjective Subjective: Surgery: Dr. Villagomez Pt seen and examined. Resting comfortably in bed. Mild SOB. Has dry non- productive cough. No F/C. Has been downgraded from ICU Objective - Vital Signs/Intake and Output Vital Signs (last 24 hours): Temp Pulse Resp BP Pulse Ox 99.7 F H 96 H 20 149/75 96 11/08/16 07:54 11/08/16 07:54 11/08/16 07:54 11/08/16 09:39 11/08/16 07:54 Intake and Output: 11/08/16 11/08/16 06:59 18:59 Intake Total 250 Output Total 840 Balance -590 - Medications Medications: Current Medications Albuterol/Ipratropium (Duoneb 3 Mg/0.5 Mg (3 Ml) Ud) 3 ml INH RQ6 [facility] Last Admin: 11/08/16 08:47 Dose: 3 ml Docusate Sodium (Colace) 100 mg PO BID [facility] Last Admin: 11/08/16 09:39 Dose: 100 mg Enoxaparin Sodium (Lovenox) 40 mg SC DAILY [facility] Last Admin: 11/08/16 09:40 Dose: 40 mg Famotidine (Pepcid) 20 mg PO DAILY [facility] Last Admin: 11/08/16 09:41 Dose: 20 mg Furosemide (Lasix) 20 mg IVP Q12 [facility] Last Admin: 11/08/16 09:39 Dose: 20 mg Guaifenesin (Mucinex La) 600 mg PO BID [facility] Last Admin: 11/08/16 09:41 Dose: 600 mg Telavancin 750 mg/ Sodium (Chloride) 100 mls @ 100 mls/hr IVPB Q24H [facility] Last Admin: 11/07/16 18:27 Dose: 100 mls/hr Imipenem/Cilastatin Sodium 1, (000 mg/ Sodium Chloride) 250 mls @ 250 mls/hr IVPB Q8H [facility] Last Admin: 11/08/16 08:03 Dose: 250 mls/hr Insulin Aspart (Novolog) 0 unit SC ACHS [facility] PRN Reason: Protocol Last Admin: 11/08/16 08:03 Dose: 6 unit Insulin Detemir (Levemir) 60 unit SC HS [facility] Last Admin: 11/07/16 21:36 Dose: 60 unit Lisinopril (Zestril) 20 mg PO DAILY [facility] Last Admin: 11/08/16 09:42 Dose: 20 mg Metoprolol Tartrate (Lopressor) 50 mg PO Q12H [facility] Last Admin: 11/08/16 08:03 Dose: 50 mg Morphine Sulfate (Morphine) 4 mg IVP Q4 PRN PRN Reason: Pain, moderate (4-7) Last Admin: 11/08/16 09:40 Dose: 4 mg Oxycodone/Acetaminophen (Percocet 5/325 Mg Tab) 2 tab PO Q6H PRN PRN Reason: Pain, moderate (4-7) Stop: 11/10/16 08:46 Last Admin: 11/07/16 21:14 Dose: 2 tab Promethazine HCl/Codeine (Phenergan/Codeine Oral Syrup) 5 ml PO Q4 PRN PRN Reason: Cough Last Admin: 11/07/16 08:44 Dose: 5 ml Saccharomyces Boulardii (Florastor) 250 mg PO BID [facility] Last Admin: 11/08/16 09:39 Dose: 250 mg - Labs Labs: 11/08/16 06:29 11/08/16 06:29 PT 15.2 SECONDS (9.7-12.2) H 11/03/16 08:05 INR 1.3 11/03/16 08:05 APTT 32 SECONDS (21-34) 11/03/16 08:05 - Constitutional Appears: Non-toxic, No Acute Distress - Head Exam Head Exam: ATRAUMATIC, NORMOCEPHALIC - Eye Exam Eye Exam: EOMI. absent: Scleral icterus - ENT Exam ENT Exam: Mucous Membranes Moist, Normal External Ear Exam - Neck Exam Neck Exam: Full ROM - Respiratory Exam Respiratory Exam: NORMAL BREATHING PATTERN. absent: Accessory Muscle Use, Respiratory Distress Additional comments: R side CT in place x2 - GI/Abdominal Exam GI & Abdominal Exam: Soft. absent: Distended, Firm, Guarding, Rigid, Tenderness - Extremities Exam Extremities Exam: absent: Calf Tenderness, Pedal Edema - Neurological Exam Neurological Exam: Alert, Awake, Oriented x3 Assessment and Plan - Assessment and Plan (Free Text) Assessment: 40M w. R parapneumonic effusion, s/p VATS converted to thoracotoy, w. decortication and wedge resection POD#5 -AM CXR improved -c/w daily CXR -CT 20cc/12hr x 2, serosang, tidling, no airleak -keep CT to suction -encourage OOB to chair and IS use -d/w attending Alyson PGY2
--- NOTE | 2016-11-08 11:47 | RAD ---
HISTORY: s/p thoracomoty and chest tube insertion x2 COMPARISON: 11/07/2016 FINDINGS: LUNGS: Lines and tubes stable position. Persistent moderate loculated right pleural effusion with consolidative changes in the right mid to lower lung zone. PLEURA: As above. CARDIOVASCULAR: Normal. OSSEOUS STRUCTURES: No significant abnormalities. VISUALIZED UPPER ABDOMEN: Normal. OTHER FINDINGS: None. IMPRESSION: No significant interval change.
[2016-11-08] MEDS: Oxycodone/Acetaminophen 5/325 mg Tab PO PRN ×2 (15:57→22:28)
--- NOTE | 2016-11-08 17:41 | CP.PCM.CON ---
History of Present Illness - History of Present Illness History of Present Illness: Chart reviewed . 40 yo patient readmitted a week ago after being treated for pneumonia, found to be dyspneic with rt. pleural effusion, S/P thoracotomy and drainage of empyema, currently on antibiotics, clinically much improved, out of the ICU today. He has persistent anemia, has had 3 units of PRBCs, no obvious bleeding noted. Patient is feeling better, denies BRBPR, epistaxis, no prior history of anemia as far as patient is aware Past Patient History - Infectious Disease Hx of Infectious Diseases: None - Tetanus Immunizations Tetanus Immunization: Unknown - Past Medical History & Family History Past Medical History?: Yes - Past Social History Smoking Status: Never Smoked Chewing Tobacco Use: Yes Cigar Use: Yes Alcohol: None Drugs: Denies Home Situation {Lives}: With Family - CARDIAC Hx Hypertension: Yes - PULMONARY Hx Respiratory Disorders: Yes Hx Asthma: Yes Hx Pneumonia: Yes - NEUROLOGICAL Hx Neurological Disorder: No - HEENT Other/Comment: uses bifocal eye glasses - RENAL Hx Chronic Kidney Disease: No - ENDOCRINE/METABOLIC Hx Endocrine Disorders: Yes Hx Diabetes Mellitus Type 2: Yes - HEMATOLOGICAL/ONCOLOGICAL Hx Blood Disorders: No - INTEGUMENTARY Hx Dermatological Problems: No - MUSCULOSKELETAL/RHEUMATOLOGICAL Hx Falls: No - GASTROINTESTINAL Hx Gastrointestinal Disorders: No - GENITOURINARY/GYNECOLOGICAL Hx Genitourinary Disorders: No - PSYCHIATRIC Hx Substance Use: No - SURGICAL HISTORY Hx Surgeries: No Other/Comment: I /d right big toe - ANESTHESIA Hx Anesthesia: Yes Hx Anesthesia Reactions: No Hx Malignant Hyperthermia: No Meds Allergies/Adverse Reactions: Allergies Allergy/AdvReac Type Severity Reaction Status Date / Time No Known Allergies Allergy Verified 11/01/16 21:15 - Medications Medications: Current Medications Albuterol/Ipratropium (Duoneb 3 Mg/0.5 Mg (3 Ml) Ud) 3 ml INH RQ6 [facility] Last Admin: 11/08/16 13:35 Dose: 3 ml Docusate Sodium (Colace) 100 mg PO BID [facility] Last Admin: 11/08/16 09:39 Dose: 100 mg Enoxaparin Sodium (Lovenox) 40 mg SC DAILY [facility] Last Admin: 11/08/16 09:40 Dose: 40 mg Famotidine (Pepcid) 20 mg PO DAILY [facility] Last Admin: 11/08/16 09:41 Dose: 20 mg Furosemide (Lasix) 20 mg IVP Q12 [facility] Last Admin: 11/08/16 09:39 Dose: 20 mg Guaifenesin (Mucinex La) 600 mg PO BID [facility] Last Admin: 11/08/16 09:41 Dose: 600 mg Telavancin 750 mg/ Sodium (Chloride) 100 mls @ 100 mls/hr IVPB Q24H [facility] Last Admin: 11/07/16 18:27 Dose: 100 mls/hr Imipenem/Cilastatin Sodium 1, (000 mg/ Sodium Chloride) 250 mls @ 250 mls/hr IVPB Q8H [facility] Last Admin: 11/08/16 15:54 Dose: 250 mls/hr Insulin Aspart (Novolog) 0 unit SC ACHS [facility] PRN Reason: Protocol Last Admin: 11/08/16 12:00 Dose: 14 unit Insulin Detemir (Levemir) 60 unit SC HS [facility] Last Admin: 11/07/16 21:36 Dose: 60 unit Lisinopril (Zestril) 20 mg PO DAILY [facility] Last Admin: 11/08/16 09:42 Dose: 20 mg Metoprolol Tartrate (Lopressor) 50 mg PO Q12H [facility] Last Admin: 11/08/16 08:03 Dose: 50 mg Morphine Sulfate (Morphine) 4 mg IVP Q4 PRN PRN Reason: Pain, moderate (4-7) Last Admin: 11/08/16 09:40 Dose: 4 mg Oxycodone/Acetaminophen (Percocet 5/325 Mg Tab) 2 tab PO Q6H PRN PRN Reason: Pain, moderate (4-7) Stop: 11/10/16 08:46 Last Admin: 11/08/16 15:57 Dose: 2 tab Promethazine HCl/Codeine (Phenergan/Codeine Oral Syrup) 5 ml PO Q4 PRN PRN Reason: Cough Last Admin: 11/07/16 08:44 Dose: 5 ml Saccharomyces Boulardii (Florastor) 250 mg PO BID [facility] Last Admin: 11/08/16 09:39 Dose: 250 mg Results - Vital Signs Recent Vital Signs: Last Vital Signs Temp 100.2 F H 11/08/16 15:45 Pulse 100 H 11/08/16 15:45 Resp 20 11/08/16 15:45 BP 150/84 11/08/16 15:45 Pulse Ox 96 11/08/16 15:45 - Labs Result Diagrams: 11/11/16 07:10 11/11/16 07:10 Labs: Laboratory Results - last 24 hr 11/03/16 11/03/16 11/06/16 07:16 15:06 08:53 WBC RBC Hgb Hct MCV MCH MCHC RDW Plt Count MPV Neut % (Auto) Lymph % (Auto) [place] % (Auto) Eos % (Auto) Baso % (Auto) Neut # Lymph # [place] # Eos # Baso # Sodium Potassium Chloride Carbon Dioxide Anion Gap BUN Creatinine Est GFR ( Amer) Est GFR (Non-Af Amer) POC Glucose (mg/dL) Random Glucose Calcium Phosphorus Magnesium Total Bilirubin AST ALT Alkaline Phosphatase Total Protein Albumin Globulin Albumin/Globulin Ratio Urine Chloride Fluid Appearance Fluid WBC Fluid RBC Fluid Tot Cell Count Fluid Neutrophils Fluid Lymphocytes Fld Monocyte/Macrophag Fluid Albumin 1.1 Fluid Comment C. pneumoniae Ab Interp see note Blood Type O POSITIVE Antibody Screen Negative 11/06/16 11/07/16 11/07/16 19:03 15:58 21:23 WBC RBC Hgb Hct MCV MCH MCHC RDW Plt Count MPV Neut % (Auto) Lymph % (Auto) [place] % (Auto) Eos % (Auto) Baso % (Auto) Neut # Lymph # [place] # Eos # Baso # Sodium Potassium Chloride Carbon Dioxide Anion Gap BUN Creatinine Est GFR ( Amer) Est GFR (Non-Af Amer) POC Glucose (mg/dL) 233 H Random Glucose Calcium Phosphorus Magnesium Total Bilirubin AST ALT Alkaline Phosphatase Total Protein Albumin Globulin Albumin/Globulin Ratio Urine Chloride 38 Fluid Appearance Bloody Fluid WBC 579460.0 H Fluid RBC 26154.0 H Fluid Tot Cell Count 100 H Fluid Neutrophils 92.0 H Fluid Lymphocytes 5.0 H Fld Monocyte/Macrophag 3 H Fluid Albumin Fluid Comment C. pneumoniae Ab Interp Blood Type Antibody Screen 11/08/16 11/08/16 11/08/16 06:29 06:29 07:14 WBC 6.1 RBC 2.96 L Hgb 8.1 L Hct 24.7 L MCV 83.5 MCH 27.5 MCHC 32.9 L RDW 14.6 H Plt Count 339 MPV 9.4 Neut % (Auto) 67.3 Lymph % (Auto) 18.1 L [place] % (Auto) 13.0 H Eos % (Auto) 1.3 Baso % (Auto) 0.3 Neut # 4.1 Lymph # 1.1 [place] # 0.8 Eos # 0.1 Baso # 0.0 Sodium 129 L Potassium 3.4 L Chloride 93 L Carbon Dioxide 28 Anion Gap 11 BUN 13 Creatinine 0.6 L Est GFR ( Amer) > 60 Est GFR (Non-Af Amer) > 60 POC Glucose (mg/dL) 210 H Random Glucose 192 H Calcium 7.7 L Phosphorus 4.0 Magnesium 1.7 Total Bilirubin 0.6 AST 23 ALT 22 Alkaline Phosphatase 93 Total Protein 6.6 Albumin 2.6 L Globulin 4.0 H Albumin/Globulin Ratio 0.7 L Urine Chloride Fluid Appearance Fluid WBC Fluid RBC Fluid Tot Cell Count Fluid Neutrophils Fluid Lymphocytes Fld Monocyte/Macrophag Fluid Albumin Fluid Comment C. pneumoniae Ab Interp Blood Type Antibody Screen 11/08/16 11/08/16 11:29 17:03 WBC RBC Hgb Hct MCV MCH MCHC RDW Plt Count MPV Neut % (Auto) Lymph % (Auto) [place] % (Auto) Eos % (Auto) Baso % (Auto) Neut # Lymph # [place] # Eos # Baso # Sodium Potassium Chloride Carbon Dioxide Anion Gap BUN Creatinine Est GFR ( Amer) Est GFR (Non-Af Amer) POC Glucose (mg/dL) 405 H* 301 H Random Glucose Calcium Phosphorus Magnesium Total Bilirubin AST ALT Alkaline Phosphatase Total Protein Albumin Globulin Albumin/Globulin Ratio Urine Chloride Fluid Appearance Fluid WBC Fluid RBC Fluid Tot Cell Count Fluid Neutrophils Fluid Lymphocytes Fld Monocyte/Macrophag Fluid Albumin Fluid Comment C. pneumoniae Ab Interp Blood Type Antibody Screen Assessment & Plan (1) Anemia Assessment and Plan: Normocytic anemia, severe, with no obvious bleeding seen. normal WBC and platelet count Will order anemia work up, Iron studies, B12, retics, serum protein electrophoresis and LDH. If the above tests are normal, most likely etiology of anemia is the underlying infection, daily lab drawing. No treatment at this time. Agree with PRN transfusion Status: Acute
[2016-11-08] MEDS: Telavancin Hydrochloride 750 MG in Sodium Chloride 0.9% 100 ML IVPB SCH (18:42)
[2016-11-08] MEDS: Insulin Detemir 100 units/ml Vial (Levemir) SC SCH (21:11)
--- NOTE | 2016-11-08 21:39 | CP.PCM.PN ---
Subjective - Date & Time of Evaluation Date of Evaluation: 11/08/16 Time of Evaluation: 21:36 - Subjective Subjective: INFECTIOUS DISEASE PROGRESS NOTE MARIA DIAZ MD, FACP [id number] 11/08/2106 CHART REVIEWED PT EXAMINED CASE DISCUSSED PT TRANSFERRED TO TODAY. REPEAT FILMS REPORTED ON TELAVANCIN AND PRIMAXIN SEEN BY [facility] TODAY WILL NEED CUSTODIAL TREATMENT BECAUSE OF HIS EMPYEMA AND SURGERY. TO FOLLOW Objective - Vital Signs/Intake and Output Vital Signs (last 24 hours): Temp Pulse Resp BP Pulse Ox 99.3 F 102 H 16 150/74 95 11/08/16 21:09 11/08/16 21:09 11/08/16 21:09 11/08/16 21:11 11/08/16 21:09 Intake and Output: 11/08/16 11/09/16 18:59 06:59 Intake Total 2690 Output Total 1520 Balance 1170 - Medications Medications: Current Medications Albuterol/Ipratropium (Duoneb 3 Mg/0.5 Mg (3 Ml) Ud) 3 ml INH RQ6 [facility] Last Admin: 11/08/16 21:15 Dose: 3 ml Docusate Sodium (Colace) 100 mg PO BID [facility] Last Admin: 11/08/16 17:47 Dose: 100 mg Enoxaparin Sodium (Lovenox) 40 mg SC DAILY [facility] Last Admin: 11/08/16 09:40 Dose: 40 mg Famotidine (Pepcid) 20 mg PO DAILY [facility] Last Admin: 11/08/16 09:41 Dose: 20 mg Furosemide (Lasix) 20 mg IVP Q12 [facility] Last Admin: 11/08/16 21:11 Dose: 20 mg Guaifenesin (Mucinex La) 600 mg PO BID [facility] Last Admin: 11/08/16 17:48 Dose: 600 mg Telavancin 750 mg/ Sodium (Chloride) 100 mls @ 100 mls/hr IVPB Q24H [facility] Last Admin: 11/08/16 18:42 Dose: 100 mls/hr Imipenem/Cilastatin Sodium 1, (000 mg/ Sodium Chloride) 250 mls @ 250 mls/hr IVPB Q8H [facility] Last Admin: 11/08/16 15:54 Dose: 250 mls/hr Insulin Aspart (Novolog) 0 unit SC ACHS [facility] PRN Reason: Protocol Last Admin: 11/08/16 21:12 Dose: Not Given Insulin Detemir (Levemir) 60 unit SC HS [facility] Last Admin: 11/08/16 21:11 Dose: 60 unit Lisinopril (Zestril) 20 mg PO DAILY [facility] Last Admin: 11/08/16 09:42 Dose: 20 mg Metoprolol Tartrate (Lopressor) 50 mg PO Q12H [facility] Last Admin: 11/08/16 21:11 Dose: 50 mg Morphine Sulfate (Morphine) 4 mg IVP Q4 PRN PRN Reason: Pain, moderate (4-7) Last Admin: 11/08/16 09:40 Dose: 4 mg Oxycodone/Acetaminophen (Percocet 5/325 Mg Tab) 2 tab PO Q6H PRN PRN Reason: Pain, moderate (4-7) Stop: 11/10/16 08:46 Last Admin: 11/08/16 15:57 Dose: 2 tab Promethazine HCl/Codeine (Phenergan/Codeine Oral Syrup) 5 ml PO Q4 PRN PRN Reason: Cough Last Admin: 11/07/16 08:44 Dose: 5 ml Saccharomyces Boulardii (Florastor) 250 mg PO BID [facility] Last Admin: 11/08/16 17:47 Dose: 250 mg - Labs Labs: 11/08/16 06:29 11/08/16 06:29 PT 15.2 SECONDS (9.7-12.2) H 11/03/16 08:05 INR 1.3 11/03/16 08:05 APTT 32 SECONDS (21-34) 11/03/16 08:05 - Constitutional Appears: Non-toxic, Agitated - Head Exam Head Exam: NORMAL INSPECTION - Eye Exam Eye Exam: Normal appearance - ENT Exam ENT Exam: Mucous Membranes Moist - Respiratory Exam Respiratory Exam: Decreased Breath Sounds - Cardiovascular Exam Cardiovascular Exam: REGULAR RHYTHM - GI/Abdominal Exam GI & Abdominal Exam: Soft, Normal Bowel Sounds. absent: Tenderness - Rectal Exam Rectal Exam: Deferred - Neurological Exam Neurological Exam: Alert, Awake - Psychiatric Exam Psychiatric exam: Anxious - Skin Skin Exam: Warm Assessment and Plan (1) Empyema Status: Acute (2) Pneumonia Status: Acute (3) Pleural effusion on right Status: Acute (4) Bilateral lower extremity edema Status: Resolved (5) Anemia Status: Acute (6) Hyperglycemia Status: Acute (7) HTN (hypertension) Status: Chronic
[2016-11-09] MEDS: Albuterol-Ipratrop 3 mg / 0.5 (3 ml) UD INH SCH ×4 (02:13→20:17)
[2016-11-09 07:23] LABS: BASO % 0.3 % (0.0-2.0); EOS # 0.1 K/uL (0.0-0.7); EOS % 1.2 % (0.0-4.0); LYMPH # 0.8 K/uL (1.0-4.3); MEAN CORPUSCULAR HEMOGLOBIN 28.1 pg (27.0-31.0); MEAN CORPUSCULAR HGB CONC 33.9 g/dL (33.0-37.0); MEAN PLATELET VOLUME 8.6 fL (7.2-11.7); MONO # 0.8 K/uL (0.0-0.8); MONO % 11.5 % (0.0-10.0); RED CELL DISTRIBUTION WIDTH 14.5 % (11.5-14.5); RETIC% 2.7 % (0.5-1.5); WHITE BLOOD COUNT 6.8 K/uL (4.8-10.8)
[2016-11-09] MEDS: (Novolog) Insulin Aspart, Recombinant 100 u/ml 10 ml vial SC SCH ×4 (08:13→21:58)
[2016-11-09] MEDS: Oxycodone/Acetaminophen 5/325 mg Tab PO PRN (08:16)
--- NOTE | 2016-11-09 08:39 | CP.PCM.PN ---
Subjective - Date & Time of Evaluation Date of Evaluation: 11/09/16 Time of Evaluation: 06:30 - Subjective Subjective: Thoracic Surgery Progress Note: Dr. Villagomez Patient was seen and examined at bedside. Patient is still having dry, non productive coughs but denies SOB. States he is feeling better and his pain at the chest tube site is adequately managed. Denies F/C, N/V. He is passing gas and had a bowel movement yesterday. He is tolerating his diet. He has been getting OOB to ambulate with PT and has been using the IS Objective - Vital Signs/Intake and Output Vital Signs (last 24 hours): Temp Pulse Resp BP Pulse Ox 99.5 F 104 H 18 138/71 99 11/09/16 07:10 11/09/16 07:10 11/09/16 07:10 11/09/16 07:10 11/09/16 07:10 Intake and Output: 11/09/16 11/09/16 06:59 18:59 Intake Total 250 Output Total 1590 Balance -1340 - Medications Medications: Current Medications Albuterol/Ipratropium (Duoneb 3 Mg/0.5 Mg (3 Ml) Ud) 3 ml INH RQ6 [facility] Last Admin: 11/09/16 07:59 Dose: 3 ml Docusate Sodium (Colace) 100 mg PO BID [facility] Last Admin: 11/08/16 17:47 Dose: 100 mg Enoxaparin Sodium (Lovenox) 40 mg SC DAILY [facility] Last Admin: 11/08/16 09:40 Dose: 40 mg Famotidine (Pepcid) 20 mg PO DAILY [facility] Last Admin: 11/08/16 09:41 Dose: 20 mg Furosemide (Lasix) 20 mg IVP Q12 [facility] Last Admin: 11/08/16 21:11 Dose: 20 mg Guaifenesin (Mucinex La) 600 mg PO BID [facility] Last Admin: 11/08/16 17:48 Dose: 600 mg Telavancin 750 mg/ Sodium (Chloride) 100 mls @ 100 mls/hr IVPB Q24H [facility] Last Admin: 11/08/16 18:42 Dose: 100 mls/hr Imipenem/Cilastatin Sodium 1, (000 mg/ Sodium Chloride) 250 mls @ 250 mls/hr IVPB Q8H [facility] Last Admin: 11/09/16 08:00 Dose: 250 mls/hr Insulin Aspart (Novolog) 0 unit SC ACHS [facility] PRN Reason: Protocol Last Admin: 11/09/16 08:13 Dose: 6 unit Insulin Detemir (Levemir) 60 unit SC HS [facility] Last Admin: 11/08/16 21:11 Dose: 60 unit Lisinopril (Zestril) 20 mg PO DAILY [facility] Last Admin: 11/08/16 09:42 Dose: 20 mg Metoprolol Tartrate (Lopressor) 50 mg PO Q12H [facility] Last Admin: 11/08/16 21:11 Dose: 50 mg Morphine Sulfate (Morphine) 4 mg IVP Q4 PRN PRN Reason: Pain, moderate (4-7) Last Admin: 11/08/16 09:40 Dose: 4 mg Oxycodone/Acetaminophen (Percocet 5/325 Mg Tab) 2 tab PO Q6H PRN PRN Reason: Pain, moderate (4-7) Stop: 11/10/16 08:46 Last Admin: 11/09/16 08:16 Dose: 2 tab Promethazine HCl/Codeine (Phenergan/Codeine Oral Syrup) 5 ml PO Q4 PRN PRN Reason: Cough Last Admin: 11/07/16 08:44 Dose: 5 ml Saccharomyces Boulardii (Florastor) 250 mg PO BID [facility] Last Admin: 11/08/16 17:47 Dose: 250 mg - Labs Labs: 11/09/16 07:08 11/08/16 06:29 PT 15.2 SECONDS (9.7-12.2) H 11/03/16 08:05 INR 1.3 11/03/16 08:05 APTT 32 SECONDS (21-34) 11/03/16 08:05 - Constitutional Appears: No Acute Distress - Head Exam Head Exam: NORMAL INSPECTION - Eye Exam Eye Exam: Normal appearance - ENT Exam ENT Exam: Mucous Membranes Moist - Neck Exam Neck Exam: Normal Inspection - Respiratory Exam Respiratory Exam: NORMAL BREATHING PATTERN. absent: Rales, Rhonchi Additional comments: Both chest tubes on the right are on suction, no air leak Chest tube #1- 100 cc serosanguinous drainage from 3pm yesterday to 7 am today Chest tube #2- 50 cc serosanguinous drainage from 3 pm yesterday to 7 am today - Cardiovascular Exam Cardiovascular Exam: Tachycardia, +S1, +S2 - GI/Abdominal Exam GI & Abdominal Exam: Soft, Normal Bowel Sounds. absent: Distended, Rigid, Tenderness - Neurological Exam Neurological Exam: Alert, Awake, Oriented x3 - Psychiatric Exam Psychiatric exam: Normal Affect, Normal Mood - Skin Skin Exam: Dry, Normal Color, Warm Assessment and Plan - Assessment and Plan (Free Text) Assessment: 40M w. R parapneumonic effusion, s/p VATS converted to thoracotoy, w. decortication and wedge resection POD#6 - c/w daily CXR - Dressing changed this morning - Hgb 8.5 slightly improved from yesterday - Both chest tubes on the right are on suction, no air leak - Chest tube #1- 100 cc serosanguinous drainage from 3pm yesterday to 7 am today - Chest tube #2- 50 cc serosanguinous drainage from 3 pm yesterday to 7 am today - Keep CT to suction - CT chest done yesterday, will follow up official read - Encourage OOB to chair and IS use - Discussed plan with Dr. Hernando Avalos PGy-2
--- NOTE | 2016-11-09 09:14 | RAD ---
HISTORY: s/p thoracomoty and chest tube insertion x2 COMPARISON: 11/08/2016 FINDINGS: LUNGS: Lines and tubes stable position. Moderate loculated right pleural effusion. Prominent consolidative changes in the right mid to lower lung zone. Right apical pleural thickening. PLEURA: As above. CARDIOVASCULAR: Cardiomegaly. OSSEOUS STRUCTURES: No significant abnormalities. VISUALIZED UPPER ABDOMEN: Normal. OTHER FINDINGS: None. IMPRESSION: No significant interval change.
[2016-11-09] MEDS: Saccharomyces Boulardi 250 mg Cap PO SCH ×2 (10:00→17:19)
[2016-11-09] MEDS: Enoxaparin 40 mg Syringe SC SCH (10:00)
--- NOTE | 2016-11-09 10:20 | CT ---
PROCEDURE: CT Chest with contrast HISTORY: s/p parietal pleurectomy COMPARISON: Comparison is made to the previous study dated 11/01/2016 TECHNIQUE: Contiguous axial images were obtained through the chest with intravenous contrast enhancement. Sagittal and coronal reconstructions were performed. IV contrast: 100 cc of Omnipaque 350 Radiation dose (DLP): 1040.16 mGy-cm. This CT exam was performed using one or more of the following dose reduction techniques: Automated exposure control, adjustment of the mA and/or kV according to patient size, and/or use of iterative reconstruction technique. FINDINGS: LUNGS: There is consolidation at the central and lower portion of the right lung contains air bronchogram may represent atelectasis or pneumonia. MEDIASTINUM: Unremarkable thoracic aorta. No aneurysm or dissection. Normal sized heart. Main pulmonary artery unremarkable. No vascular congestion. Mild mediastinal lymphadenopathy seen. The largest lymph node is seen at the upper mediastinal measures 1.9 centimeter. There is diffuse esophageal mucosal thickening seen. PLEURA: There are foci of localized pleural effusion seen in the right chest. There is localized pleural effusion a at the lateral aspect of the right upper chest measures approximately 5.6 centimeter in the largest diameter contains air-fluid level. There is also localized pleural effusion at the medial aspect of the right upper chest measures approximately 4.4 centimeter also contains fluid and foci of air. There is localized pleural effusion at the medial aspect of the right upper chest measures approximately 3.8 centimeter. Localized pleural effusions seen also at the medial aspect of the mid to lower right chest also contains air-fluid level and measures approximately 6.3 centimeter in the largest diameter. There is also small to moderate free right pleural effusion also contains foci of air. Two chest tubes are seen in place in the right chest BONES: No fracture. No destructive lesion. UPPER ABDOMEN: Grossly unremarkable. OTHER FINDINGS: Right chest wall emphysema and soft tissue stranding is seen. IMPRESSION: Interval appearance of at least 3 localized pleural effusions at the right chest cavity since the previous exam contains air-fluid levels. The possibility of empyema or infected localized pleural effusions should be considered. The differential diagnosis includes postsurgical seroma versus less likely lung pleural space fistula . Airspace consolidation at the mid and lower portion of the right lung contains air bronchogram may represent atelectasis or pneumonia. Two right-sided chest tubes seen in place. Postsurgical changes consistent with the patient's history of partial pleurectomy. Diffuse esophageal mucosal thickening. Mild mid and upper mediastinum lymphadenopathy.
--- NOTE | 2016-11-09 10:48 | CARD ---
APPROVED REPORT EKG Measurement Heart [id number] <Conclusion> Sinus tachycardia Rightward axis Nonspecific ST abnormality Abnormal QRS-T angle, consider primary T wave abnormality Abnormal ECG
--- NOTE | 2016-11-09 10:48 | CARD ---
APPROVED REPORT EKG Measurement Heart [id number] [place] [id number] <Conclusion> sinus tachy Prolonged QT Abnormal ECG
[2016-11-09] MEDS: guaiFENesin 600 mg ER Tab PO SCH ×2 (10:59→17:19)
--- NOTE | 2016-11-09 12:28 | CP.PCM.PN ---
Subjective - Date & Time of Evaluation Date of Evaluation: 11/09/16 Time of Evaluation: 12:21 - Subjective Subjective: Pt. s/e. Tmax=99. HR+105. hct-25/8.5. wbc=6k. chest tubes40/80cc/y serosanguinous(H/H=2.4/6.8). ct of chest: Patchy localized fluids(3-4cm d), consolidation of lower lobe, and elevated right hemidiaphragm. Path reviewed with pathologist-coag negative staph.and consistent with acute iflammatory processes. a/p: Continue chest tubes. Consider transferring back to icu(d/w Dr. Andino) Objective - Vital Signs/Intake and Output Vital Signs (last 24 hours): Temp Pulse Resp BP Pulse Ox 99.5 F 104 H 18 137/76 99 11/09/16 07:10 11/09/16 07:10 11/09/16 07:10 11/09/16 10:00 11/09/16 07:10 Intake and Output: 11/09/16 11/09/16 06:59 18:59 Intake Total 250 Output Total 1590 Balance -1340 - Medications Medications: Current Medications Albuterol/Ipratropium (Duoneb 3 Mg/0.5 Mg (3 Ml) Ud) 3 ml INH RQ6 [facility] Last Admin: 11/09/16 07:59 Dose: 3 ml Docusate Sodium (Colace) 100 mg PO BID [facility] Last Admin: 11/09/16 11:00 Dose: 100 mg Enoxaparin Sodium (Lovenox) 40 mg SC DAILY [facility] Last Admin: 11/09/16 10:00 Dose: 40 mg Famotidine (Pepcid) 20 mg PO DAILY [facility] Last Admin: 11/09/16 10:00 Dose: 20 mg Furosemide (Lasix) 20 mg IVP Q12 [facility] Last Admin: 11/09/16 10:00 Dose: 20 mg Guaifenesin (Mucinex La) 600 mg PO BID [facility] Last Admin: 11/09/16 10:59 Dose: 600 mg Telavancin 750 mg/ Sodium (Chloride) 100 mls @ 100 mls/hr IVPB Q24H [facility] Last Admin: 11/08/16 18:42 Dose: 100 mls/hr Imipenem/Cilastatin Sodium 1, (000 mg/ Sodium Chloride) 250 mls @ 250 mls/hr IVPB Q8H [facility] Last Admin: 11/09/16 08:00 Dose: 250 mls/hr Insulin Aspart (Novolog) 0 unit SC ACHS [facility] PRN Reason: Protocol Last Admin: 11/09/16 12:07 Dose: 8 unit Insulin Detemir (Levemir) 60 unit SC HS [facility] Last Admin: 11/08/16 21:11 Dose: 60 unit Lisinopril (Zestril) 20 mg PO DAILY [facility] Last Admin: 11/09/16 10:00 Dose: 20 mg Metoprolol Tartrate (Lopressor) 50 mg PO Q12H [facility] Last Admin: 11/09/16 10:00 Dose: 50 mg Morphine Sulfate (Morphine) 4 mg IVP Q4 PRN PRN Reason: Pain, moderate (4-7) Last Admin: 11/08/16 09:40 Dose: 4 mg Oxycodone/Acetaminophen (Percocet 5/325 Mg Tab) 2 tab PO Q6H PRN PRN Reason: Pain, moderate (4-7) Stop: 11/10/16 08:46 Last Admin: 11/09/16 08:16 Dose: 2 tab Promethazine HCl/Codeine (Phenergan/Codeine Oral Syrup) 5 ml PO Q4 PRN PRN Reason: Cough Last Admin: 11/07/16 08:44 Dose: 5 ml Saccharomyces Boulardii (Florastor) 250 mg PO BID [facility] Last Admin: 11/09/16 10:00 Dose: 250 mg - Labs Labs: 11/09/16 07:08 11/08/16 06:29 PT 15.2 SECONDS (9.7-12.2) H 11/03/16 08:05 INR 1.3 11/03/16 08:05 APTT 32 SECONDS (21-34) 11/03/16 08:05
--- NOTE | 2016-11-09 13:40 | CP.PCM.PN ---
<Florencio Wade - Last Filed: 11/09/16 13:37> Subjective - Date & Time of Evaluation Date of Evaluation: 11/09/16 Time of Evaluation: 13:37 - Subjective Subjective: Cardiology Progress Note Dr. Lin Patient seen and examined at the bedside. No acute distress. No acute events overnight. Patient is POD #6 s/p thoracotomy with Dr. Villagomez. The patient notes some residual SOB. The patient is resting comfortably in the bed. The patient also reports resolved swelling in his lower extremities with the use of the José Stockings. He denies all other complaints this morning. 12 point review of systems was completed and negative except for the above, stated complaints. Objective - Vital Signs/Intake and Output Vital Signs (last 24 hours): Temp Pulse Resp BP Pulse Ox 99.5 F 104 H 18 137/76 99 11/09/16 07:10 11/09/16 07:10 11/09/16 07:10 11/09/16 10:00 11/09/16 07:10 Intake and Output: 11/09/16 11/09/16 06:59 18:59 Intake Total 250 Output Total 1590 Balance -1340 - Medications Medications: Current Medications Albuterol/Ipratropium (Duoneb 3 Mg/0.5 Mg (3 Ml) Ud) 3 ml INH RQ6 [facility] Last Admin: 11/09/16 13:20 Dose: 3 ml Docusate Sodium (Colace) 100 mg PO BID [facility] Last Admin: 11/09/16 11:00 Dose: 100 mg Enoxaparin Sodium (Lovenox) 40 mg SC DAILY [facility] Last Admin: 11/09/16 10:00 Dose: 40 mg Famotidine (Pepcid) 20 mg PO DAILY [facility] Last Admin: 11/09/16 10:00 Dose: 20 mg Furosemide (Lasix) 20 mg IVP Q12 [facility] Last Admin: 11/09/16 10:00 Dose: 20 mg Guaifenesin (Mucinex La) 600 mg PO BID [facility] Last Admin: 11/09/16 10:59 Dose: 600 mg Telavancin 750 mg/ Sodium (Chloride) 100 mls @ 100 mls/hr IVPB Q24H [facility] Last Admin: 11/08/16 18:42 Dose: 100 mls/hr Imipenem/Cilastatin Sodium 1, (000 mg/ Sodium Chloride) 250 mls @ 250 mls/hr IVPB Q8H [facility] Last Admin: 11/09/16 08:00 Dose: 250 mls/hr Insulin Aspart (Novolog) 0 unit SC ACHS [facility] PRN Reason: Protocol Last Admin: 11/09/16 12:07 Dose: 8 unit Insulin Detemir (Levemir) 60 unit SC HS [facility] Last Admin: 11/08/16 21:11 Dose: 60 unit Lisinopril (Zestril) 20 mg PO DAILY [facility] Last Admin: 11/09/16 10:00 Dose: 20 mg Metoprolol Tartrate (Lopressor) 50 mg PO Q12H [facility] Last Admin: 11/09/16 10:00 Dose: 50 mg Morphine Sulfate (Morphine) 4 mg IVP Q4 PRN PRN Reason: Pain, moderate (4-7) Last Admin: 11/08/16 09:40 Dose: 4 mg Oxycodone/Acetaminophen (Percocet 5/325 Mg Tab) 2 tab PO Q6H PRN PRN Reason: Pain, moderate (4-7) Stop: 11/10/16 08:46 Last Admin: 11/09/16 08:16 Dose: 2 tab Promethazine HCl/Codeine (Phenergan/Codeine Oral Syrup) 5 ml PO Q4 PRN PRN Reason: Cough Last Admin: 11/07/16 08:44 Dose: 5 ml Saccharomyces Boulardii (Florastor) 250 mg PO BID [facility] Last Admin: 11/09/16 10:00 Dose: 250 mg - Labs Labs: 11/09/16 07:08 11/08/16 06:29 PT 15.2 SECONDS (9.7-12.2) H 11/03/16 08:05 INR 1.3 11/03/16 08:05 APTT 32 SECONDS (21-34) 11/03/16 08:05 - Additional Findings Additional findings: - Constitutional Appears: Well, No Acute Distress - Head Exam Head Exam: ATRAUMATIC, NORMAL INSPECTION, NORMOCEPHALIC - Eye Exam Eye Exam: EOMI, Normal appearance Pupil Exam: NORMAL ACCOMODATION - ENT Exam ENT Exam: Mucous Membranes Moist, Normal Exam - Neck Exam Neck exam: Positive for: Full Rom, Normal Inspection. Negative for: Tenderness - Respiratory Exam Respiratory Exam: Decreased Breath Sounds (right lung mid and base), NORMAL BREATHING PATTERN. absent: Accessory Muscle Use, Clear to Auscultation Bilateral, Rales, Rhonchi, Wheezes, Respiratory Distress - Cardiovascular Exam Cardiovascular Exam: REGULAR RHYTHM, +S1, +S2, RRR. absent: Tachycardia, Diastolic murmur, RRR, Systolic Murmur - GI/Abdominal Exam GI & Abdominal Exam: Normal Bowel Sounds, Soft. absent: Distended, Firm, Guarding, Tenderness - Extremities Exam Extremities exam: Positive for: normal capillary refill, normal inspection, pedal pulses present, Edema (race b/l le) - Back Exam Back exam: NORMAL INSPECTION. absent: CVA tenderness (L), CVA tenderness (R) - Neurological Exam Neurological exam: Alert, CN II-XII Intact, Oriented x3 - Skin Skin Exam: Dry, Intact, Normal Color, Warm Assessment and Plan (1) Tachycardia Assessment & Plan: resolved cardiac stable at this point will continue to monitor Lopressor 50mg PO q12 Discontinue Tele Monitor 11/04/16 ELG- sinus tachycardia, physiologic axis, normal CA interval, normal QRS duration, prolonged QTc, poor R wave progression, no ST or T wave abnormalities 11/02/16 EKG- sinus tachycardia, right axis deviation, normal CA interval, normal QRS duration, prolonged QTc, nonspecific ST/T wave abnormality 11/03/15 Echo- EF 53%, normal diastolic filling pressures Troponin negative x 2 (<0.0120 x 2) CK-MB negative x 2 (1.00 > 0.63) BNP 102 (normal) Case Discussed with Dr. Delia Wade PGY1 Status: Resolved (2) Bilateral lower extremity edema Assessment & Plan: Resolved Continue Lasix 20mg IVP q12 José hose stockings Status: Resolved (3) Pre-procedural cardiovascular examination Assessment & Plan: Cardiac Risk Assessment- (Low Risk for VATS) - Detsky Score 10: Class I - Low Risk - Jenkins Score 3: Class I - Low Risk - Tunde Score 2- Moderate Risk Status: Resolved <Saravanan Lin - Last Filed: 12/29/16 09:28> Objective - Vital Signs/Intake and Output Vital Signs (last 24 hours): Temp Pulse Resp BP Pulse Ox 97.7 F 82 18 120/83 95 11/30/16 08:06 11/30/16 08:06 11/30/16 08:06 11/30/16 08:06 11/30/16 08:06 - Labs Labs: 11/29/16 07:08 11/29/16 07:08 PT 14.4 SECONDS (9.7-12.2) H 11/29/16 07:08 INR 1.3 11/29/16 07:08 APTT 35 SECONDS (21-34) H 11/29/16 07:08 Assessment and Plan (1) HTN (hypertension) Status: Chronic (2) Tachycardia Status: Resolved Attending/Attestation - Attestation I have personally seen and examined this patient.: Yes I have fully participated in the care of the patient.: Yes I have reviewed all pertinent clinical information, including history, physical exam and plan: Yes Notes (Text): 12/29/16 09:28 TEDS helping edema continue ambulation as tolerated
[2016-11-09] MEDS: Promethazine/Cod 6.25mg-10mg/5ml Syr UD PO PRN ×2 (16:28→21:58)
[2016-11-09] MEDS: Telavancin Hydrochloride 750 MG in Sodium Chloride 0.9% 100 ML IVPB SCH (19:07)
--- NOTE | 2016-11-09 19:13 | VASCLAB ---
PROCEDURE: Lower Extremity Venous Duplex Exam. HISTORY: b/l leg swelling r/o dvt PRIORS: None. TECHNIQUE: Bilateral common femoral, femoral, popliteal and posterior tibial, peroneal and great saphenous veins were evaluated. Flow was assessed with color Doppler, compressibility, assessment of phasic flow and augmentation response. Report prepared by Kei Slater, DELBERT, RVT FINDINGS: RIGHT: 1. Common Femoral Vein: 1.1. Compressibility - Fully compressible: Thrombus - None : Flow - Phasic: Augmentation -Normal: Reflux - None. 2. Femoral Vein: 2.1. Compressibility - Fully compressible: Thrombus - None : Flow - Phasic: Augmentation -Normal: Reflux - None. 3. Popliteal Vein: 3.1. Compressibility - Fully compressible: Thrombus - None : Flow - Phasic: Augmentation -Normal: Reflux - None. 4. Posterior Tibial Vein: 4.1. Compressibility - Fully compressible: Thrombus - None: Flow - Phasic: Augmentation -Normal: Reflux - None. 5. Peroneal Vein: 5.1. Compressibility - Fully compressible: Thrombus - None: Flow - Phasic: Augmentation -Normal: Reflux - None. 6. Great Saphenous Vein: 6.1. Compressibility - Fully compressible: Thrombus - None: Flow - Phasic: Augmentation - Normal: Reflux - None. LEFT: 1. Common Femoral Vein: 1.1. Compressibility - Fully compressible: Thrombus - None: Flow - Phasic: Augmentation -Normal: Reflux - None. 2. Femoral Vein: 2.1. Compressibility - Fully compressible: Thrombus - None: Flow - Phasic: Augmentation -Normal: Reflux - None. 3. Popliteal Vein: 3.1. Compressibility - Fully compressible: Thrombus - None : Flow - Phasic: Augmentation -Normal: Reflux - None. 4. Posterior Tibial Vein: 4.1. Compressibility - Fully compressible: Thrombus - None: Flow - Phasic: Augmentation -Normal: Reflux - None. 5. Peroneal Vein: 5.1. Compressibility - Fully compressible: Thrombus - None: Flow - Phasic: Augmentation -Normal: Reflux - None. 6. Great Saphenous Vein: 6.1. Compressibility - Fully compressible: Thrombus - None: Flow - Phasic: Augmentation - Normal: Reflux - None. OTHER FINDINGS: Right: None significant. Left: None significant. IMPRESSION: Right: No evidence of deep or superficial vein thrombosis of the right lower extremity. Normal valve function noted of the right side. Left: No evidence of deep or superficial vein thrombosis of the left lower extremity. Normal valve function noted of the left side.
[2016-11-09] MEDS: Insulin Detemir 100 units/ml Vial (Levemir) SC SCH (22:10)
[2016-11-10] MEDS: Albuterol-Ipratrop 3 mg / 0.5 (3 ml) UD INH SCH ×4 (01:58→20:20)
[2016-11-10] MEDS: Oxycodone/Acetaminophen 5/325 mg Tab PO PRN (02:07)
[2016-11-10 06:23] LABS: BASO % 0.4 % (0.0-2.0); EOS # 0.1 K/uL (0.0-0.7); EOS % 1.5 % (0.0-4.0); LYMPH % 12.5 % (20.0-40.0); MEAN CELL VOLUME 83.2 fL (80.0-94.0); MEAN CORPUSCULAR HEMOGLOBIN 27.1 pg (27.0-31.0); MEAN CORPUSCULAR HGB CONC 32.6 g/dL (33.0-37.0); MEAN PLATELET VOLUME 8.8 fL (7.2-11.7); MONO # 1.1 K/uL (0.0-0.8); MONO % 12.7 % (0.0-10.0); NRBC % 0.1 % (0.0-2.0); RED CELL DISTRIBUTION WIDTH 14.8 % (11.5-14.5); WHITE BLOOD COUNT 8.3 K/uL (4.8-10.8)
[2016-11-10 06:42] LABS: CHLORIDE 90 mmol/L (98-107)
[2016-11-10 06:43] LABS: SODIUM 132 mmol/L (132-148)
[2016-11-10 06:45] LABS: ALB/GLOB RATIO 0.6 (1.0-2.1); AST/SGOT 33 U/L (17-59); BILIRUBIN,TOTAL 0.7 mg/dL (0.2-1.3); BLOOD UREA NITROGEN 11 mg/dL (9-20); CARBON DIOXIDE 30 mmol/L (22-30); GFR AFRICAN-AMERICAN > 60; TOTAL PROTEIN 7.4 g/dL (6.3-8.3)
[2016-11-10 06:46] LABS: ALKALINE PHOSPHATASE 101 U/L (38-126); ALT/SGPT 22 U/L (21-72); CALCIUM 7.8 mg/dl (8.6-10.4); GLUCOSE,RANDOM 132 mg/dL (75-110)
[2016-11-10] MEDS: (Novolog) Insulin Aspart, Recombinant 100 u/ml 10 ml vial SC SCH ×4 (07:30→22:48)
--- NOTE | 2016-11-10 09:07 | RAD ---
HISTORY: s/p thoracomoty and chest tube insertion x2 COMPARISON: 11/09/2016 FINDINGS: LUNGS: [address]. Persistent moderate loculated right-sided pleural effusion with consolidative changes in the right mid to lower lung zone. Bilateral hilar prominence. Right paratracheal airspace opacity. PLEURA: As above. CARDIOVASCULAR: Cardiomegaly. OSSEOUS STRUCTURES: No significant abnormalities. VISUALIZED UPPER ABDOMEN: Normal. OTHER FINDINGS: None. IMPRESSION: [address] Persistent moderate loculated right-sided pleural effusion with consolidative changes in the right mid to lower lung zone. Bilateral hilar prominence. Right paratracheal airspace opacity.
[2016-11-10] MEDS: Promethazine/Cod 6.25mg-10mg/5ml Syr UD PO PRN (09:55)
[2016-11-10] MEDS: Saccharomyces Boulardi 250 mg Cap PO SCH ×2 (10:00→17:38)
[2016-11-10] MEDS: Enoxaparin 40 mg Syringe SC SCH (10:05)
[2016-11-10] MEDS: Insulin Detemir 100 units/ml Vial (Levemir) SC SCH ×2 (10:10→22:47)
--- NOTE | 2016-11-10 11:11 | CP.PCM.PN ---
<Florencio Wade - Last Filed: 11/10/16 11:09> Subjective - Date & Time of Evaluation Date of Evaluation: 11/10/16 Time of Evaluation: 11:09 - Subjective Subjective: Cardiology Progress Note Dr. Lin Patient seen and examined at the bedside. No acute distress. No acute events overnight. Patient is POD #7 s/p thoracotomy with Dr. Villagomez. The patient notes some residual SOB improved from yesterday. The patient is resting comfortably in the bed. He denies all other complaints this morning. 12 point review of systems was completed and negative except for the above, stated complaints. Objective - Vital Signs/Intake and Output Vital Signs (last 24 hours): Temp Pulse Resp BP Pulse Ox 98.5 F 94 H 20 136/76 95 11/10/16 07:47 11/10/16 07:47 11/10/16 07:47 11/10/16 07:47 11/10/16 07:47 Intake and Output: 11/10/16 11/10/16 06:59 18:59 Intake Total 250 Output Total 950 30 Balance -950 220 - Medications Medications: Current Medications Albuterol/Ipratropium (Duoneb 3 Mg/0.5 Mg (3 Ml) Ud) 3 ml INH RQ6 [facility] Last Admin: 11/10/16 07:44 Dose: 3 ml Docusate Sodium (Colace) 100 mg PO BID [facility] Last Admin: 11/10/16 10:03 Dose: 100 mg Enoxaparin Sodium (Lovenox) 40 mg SC DAILY [facility] Last Admin: 11/10/16 10:05 Dose: 40 mg Famotidine (Pepcid) 20 mg PO DAILY [facility] Last Admin: 11/10/16 10:04 Dose: 20 mg Telavancin 750 mg/ Sodium (Chloride) 100 mls @ 100 mls/hr IVPB Q24H [facility] Last Admin: 11/09/16 19:07 Dose: 100 mls/hr Imipenem/Cilastatin Sodium 1, (000 mg/ Sodium Chloride) 250 mls @ 250 mls/hr IVPB Q8H [facility] Last Admin: 11/10/16 08:00 Dose: 250 mls/hr Insulin Aspart (Novolog) 0 unit SC ACHS [facility] PRN Reason: Protocol Last Admin: 11/10/16 07:30 Dose: Not Given Insulin Detemir (Levemir) 40 unit SC Q12 [facility] Last Admin: 11/10/16 10:10 Dose: 40 unit Lisinopril (Zestril) 20 mg PO DAILY [facility] Last Admin: 11/10/16 10:03 Dose: 20 mg Metoprolol Tartrate (Lopressor) 50 mg PO Q12H [facility] Last Admin: 11/10/16 10:04 Dose: 50 mg Morphine Sulfate (Morphine) 4 mg IVP Q4 PRN PRN Reason: Pain, moderate (4-7) Last Admin: 11/10/16 10:11 Dose: 4 mg Promethazine HCl/Codeine (Phenergan/Codeine Oral Syrup) 5 ml PO Q4 PRN PRN Reason: Cough Last Admin: 11/10/16 09:55 Dose: 5 ml Saccharomyces Boulardii (Florastor) 250 mg PO BID [facility] Last Admin: 11/09/16 17:19 Dose: 250 mg - Labs Labs: 11/10/16 06:12 11/10/16 06:12 PT 15.2 SECONDS (9.7-12.2) H 11/03/16 08:05 INR 1.3 11/03/16 08:05 APTT 32 SECONDS (21-34) 11/03/16 08:05 - Additional Findings Additional findings: - Constitutional Appears: Well, No Acute Distress - Head Exam Head Exam: ATRAUMATIC, NORMAL INSPECTION, NORMOCEPHALIC - Eye Exam Eye Exam: EOMI, Normal appearance Pupil Exam: NORMAL ACCOMODATION - ENT Exam ENT Exam: Mucous Membranes Moist, Normal Exam - Neck Exam Neck exam: Positive for: Full Rom, Normal Inspection. Negative for: Tenderness - Respiratory Exam Respiratory Exam: Decreased Breath Sounds (right lung mid and base), NORMAL BREATHING PATTERN. absent: Accessory Muscle Use, Clear to Auscultation Bilateral, Rales, Rhonchi, Wheezes, Respiratory Distress - Cardiovascular Exam Cardiovascular Exam: REGULAR RHYTHM, +S1, +S2, RRR. absent: Tachycardia, Diastolic murmur, RRR, Systolic Murmur - GI/Abdominal Exam GI & Abdominal Exam: Normal Bowel Sounds, Soft. absent: Distended, Firm, Guarding, Tenderness - Extremities Exam Extremities exam: Positive for: normal capillary refill, normal inspection, pedal pulses present, Edema (race b/l le) - Back Exam Back exam: NORMAL INSPECTION. absent: CVA tenderness (L), CVA tenderness (R) - Neurological Exam Neurological exam: Alert, CN II-XII Intact, Oriented x3 - Skin Skin Exam: Dry, Intact, Normal Color, Warm Assessment and Plan (1) Tachycardia Assessment & Plan: resolved cardiac stable at this point will continue to monitor Lopressor 50mg PO q12 Discontinue Tele Monitor Troponin negative x 2 (<0.0120 x 2) CK-MB negative x 2 (1.00 > 0.63) BNP 102 (normal) 11/04/16 ELG- sinus tachycardia, physiologic axis, normal TN interval, normal QRS duration, prolonged QTc, poor R wave progression, no ST or T wave abnormalities 11/02/16 EKG- sinus tachycardia, right axis deviation, normal TN interval, normal QRS duration, prolonged QTc, nonspecific ST/T wave abnormality 11/03/15 Echo- EF 53%, normal diastolic filling pressures Case Discussed with Dr. Delia Wade PGY1 Status: Resolved (2) Bilateral lower extremity edema Assessment & Plan: Resolved Continue Lasix 20mg IVP q12 José hose stockings Status: Resolved (3) Pre-procedural cardiovascular examination Assessment & Plan: Cardiac Risk Assessment- Low Risk (POD #7 s/p VATS) - Detsky Score 10: Class I - Low Risk - Jenkins Score 3: Class I - Low Risk - Tunde Score 2- Moderate Risk Status: Resolved <Saravanan Lin - Last Filed: 12/29/16 09:27> Objective - Vital Signs/Intake and Output Vital Signs (last 24 hours): Temp Pulse Resp BP Pulse Ox 97.7 F 82 18 120/83 95 11/30/16 08:06 11/30/16 08:06 11/30/16 08:06 11/30/16 08:06 11/30/16 08:06 - Labs Labs: 11/29/16 07:08 11/29/16 07:08 PT 14.4 SECONDS (9.7-12.2) H 11/29/16 07:08 INR 1.3 11/29/16 07:08 APTT 35 SECONDS (21-34) H 11/29/16 07:08 Assessment and Plan (1) HTN (hypertension) Status: Chronic (2) Tachycardia Status: Resolved Attending/Attestation - Attestation I have personally seen and examined this patient.: Yes I have fully participated in the care of the patient.: Yes I have reviewed all pertinent clinical information, including history, physical exam and plan: Yes Notes (Text): 12/29/16 09:27 encourage PO fluids continue dvt prophylaxis
--- NOTE | 2016-11-10 14:01 | CP.PCM.PN ---
Subjective - Date & Time of Evaluation Date of Evaluation: 11/10/16 Time of Evaluation: 13:58 - Subjective Subjective: Tmax+100. hct=29. wbc-8k chest tubes-90/20/serosanguinous-no air leak. cxr-Unchanged.-lowe zone consolidation. Objective - Vital Signs/Intake and Output Vital Signs (last 24 hours): Temp Pulse Resp BP Pulse Ox 98.5 F 94 H 20 136/76 95 11/10/16 07:47 11/10/16 07:47 11/10/16 07:47 11/10/16 07:47 11/10/16 07:47 Intake and Output: 11/10/16 11/10/16 06:59 18:59 Intake Total 250 Output Total 950 30 Balance -950 220 - Medications Medications: Current Medications Albuterol/Ipratropium (Duoneb 3 Mg/0.5 Mg (3 Ml) Ud) 3 ml INH RQ6 [facility] Last Admin: 11/10/16 13:22 Dose: 3 ml Docusate Sodium (Colace) 100 mg PO BID [facility] Last Admin: 11/10/16 10:03 Dose: 100 mg Enoxaparin Sodium (Lovenox) 40 mg SC DAILY [facility] Last Admin: 11/10/16 10:05 Dose: 40 mg Famotidine (Pepcid) 20 mg PO DAILY [facility] Last Admin: 11/10/16 10:04 Dose: 20 mg Telavancin 750 mg/ Sodium (Chloride) 100 mls @ 100 mls/hr IVPB Q24H [facility] Last Admin: 11/09/16 19:07 Dose: 100 mls/hr Imipenem/Cilastatin Sodium 1, (000 mg/ Sodium Chloride) 250 mls @ 250 mls/hr IVPB Q8H [facility] Last Admin: 11/10/16 08:00 Dose: 250 mls/hr Insulin Aspart (Novolog) 0 unit SC ACHS [facility] PRN Reason: Protocol Last Admin: 11/10/16 07:30 Dose: Not Given Insulin Detemir (Levemir) 40 unit SC Q12 [facility] Last Admin: 11/10/16 10:10 Dose: 40 unit Lisinopril (Zestril) 20 mg PO DAILY [facility] Last Admin: 11/10/16 10:03 Dose: 20 mg Metoprolol Tartrate (Lopressor) 50 mg PO Q12H [facility] Last Admin: 11/10/16 10:04 Dose: 50 mg Morphine Sulfate (Morphine) 4 mg IVP Q4 PRN PRN Reason: Pain, moderate (4-7) Last Admin: 11/10/16 10:11 Dose: 4 mg Promethazine HCl/Codeine (Phenergan/Codeine Oral Syrup) 5 ml PO Q4 PRN PRN Reason: Cough Last Admin: 11/10/16 09:55 Dose: 5 ml Saccharomyces Boulardii (Florastor) 250 mg PO BID [facility] Last Admin: 11/09/16 17:19 Dose: 250 mg - Labs Labs: 11/10/16 06:12 11/10/16 06:12 PT 15.2 SECONDS (9.7-12.2) H 11/03/16 08:05 INR 1.3 11/03/16 08:05 APTT 32 SECONDS (21-34) 11/03/16 08:05
[2016-11-10] MEDS ORDERED: Potassium Chloride 20 mEq ER Tab PO STA (16:25)
[2016-11-10] MEDS ORDERED: Potassium Chloride 20 mEq ER Tab PO ONE (16:30)
[2016-11-10] MEDS: Telavancin Hydrochloride 750 MG in Sodium Chloride 0.9% 100 ML IVPB SCH (20:00)
--- NOTE | 2016-11-10 21:32 | PN ---
DATE: 11/10/2016 The patient was seen by me on 11/10/2016. The patient today having right-sided chest tube still draining some fluid. He is currently afebrile, but minimal, low-grade fever noted. Appetite is okay, leg edema still present. PHYSICAL EXAMINATION: VITAL SIGNS: Heart rate is 98.4, pulse 93, blood pressure 136/76, blood sugar is slightly better than yesterday. HEENT: PERRLA. NECK: Supple. CHEST: Good air entry, but right side, decreased air entry noted and no JVD noted. ABDOMEN: Soft, nontender. EXTREMITIES: Edema bilaterally, more on the right side. Today's chest x-ray showing persistent perihilar infiltrate and pleural effusion with chest tube in place. No pneumothorax noted. LABORATORY DATA: Today reviewed. Sodium 132, potassium 3.0, BUN 11, creatinine 0.7, glucose is 132, albumin is 2.8, otherwise patient is doing well. WBC 8.3, hemoglobin 9.4, platelet is 436. In the past the patient's multiple evaluations for HIV, hepatitis and further serology is negative except chlamydia, pneumoniae IgG, probably nonspecific, RA factor titer TOMI is negative. ASSESSMENT AND RECOMMENDATIONS: A 40-year-old male admitted with uncontrolled diabetes complicated with right-sided pneumonia, parapneumonic effusion, empyema , status post VATS and chest tube, now slowly improving in overall prognosis, but still having significant effusion and organizing pneumonia on the right lung with minimal improvement. We will continue the IV antibiotic. We will discuss with the thoracic surgeon for possible chest tube management. Meanwhile , we will get more workup including immunoglobulin, electrophoresis and also chest x-ray and we will follow up the patient. Brando Hernandez MD cc: [id number] TT: 11/10/2016 21:32:06 Confirmation # [id number] Dictation # [id number] [id number]
--- NOTE | 2016-11-10 21:33 | CP.PCM.PN ---
Subjective - Date & Time of Evaluation Date of Evaluation: 11/10/16 Time of Evaluation: 21:30 - Subjective Subjective: INFECTIOUS DISEASE PROGRESS NOTE MARIA DIAZ MD, FACP 6T 671-B 11/10/2016 CHART REVIEWED PT EXAMINED CASE DISCUSSED REVIEWED CT WITH DR AGUIRRE, RIGHT UPPER LOCULATIONS NOTED WBC STABLE, H/H STABLE, NO MAJOR ELEVATIONS IN TEMPS, BLOOD SUGAR MORE STABLE AND CLINICALLY THE PT LOOKS MORE STABLE BUT THE CT IS TROUBLESOME. CONTINUE IV AB CONSIDER MORE THORACIC SX(?). Objective - Vital Signs/Intake and Output Vital Signs (last 24 hours): Temp Pulse Resp BP Pulse Ox 99.2 F 88 20 142/75 96 11/10/16 15:35 11/10/16 15:35 11/10/16 15:35 11/10/16 15:35 11/10/16 15:35 Intake and Output: 11/10/16 11/11/16 18:59 06:59 Intake Total 250 Output Total 30 Balance 220 - Medications Medications: Current Medications Albuterol/Ipratropium (Duoneb 3 Mg/0.5 Mg (3 Ml) Ud) 3 ml INH RQ6 [facility] Last Admin: 11/10/16 20:20 Dose: 3 ml Docusate Sodium (Colace) 100 mg PO BID [facility] Last Admin: 11/10/16 17:37 Dose: Not Given Enoxaparin Sodium (Lovenox) 40 mg SC DAILY [facility] Last Admin: 11/10/16 10:05 Dose: 40 mg Famotidine (Pepcid) 20 mg PO DAILY [facility] Last Admin: 11/10/16 10:04 Dose: 20 mg Telavancin 750 mg/ Sodium (Chloride) 100 mls @ 100 mls/hr IVPB Q24H [facility] Last Admin: 11/10/16 20:00 Dose: 100 mls/hr Imipenem/Cilastatin Sodium 1, (000 mg/ Sodium Chloride) 250 mls @ 250 mls/hr IVPB Q8H [facility] Last Admin: 11/10/16 17:00 Dose: 250 mls/hr Insulin Aspart (Novolog) 0 unit SC ACHS [facility] PRN Reason: Protocol Last Admin: 11/10/16 17:30 Dose: 6 unit Insulin Detemir (Levemir) 40 unit SC Q12 [facility] Last Admin: 11/10/16 10:10 Dose: 40 unit Lisinopril (Zestril) 20 mg PO DAILY [facility] Last Admin: 11/10/16 10:03 Dose: 20 mg Metoprolol Tartrate (Lopressor) 50 mg PO Q12H [facility] Last Admin: 11/10/16 10:04 Dose: 50 mg Morphine Sulfate (Morphine) 4 mg IVP Q4 PRN PRN Reason: Pain, moderate (4-7) Last Admin: 11/10/16 16:57 Dose: 4 mg Promethazine HCl/Codeine (Phenergan/Codeine Oral Syrup) 5 ml PO Q4 PRN PRN Reason: Cough Last Admin: 11/10/16 09:55 Dose: 5 ml Saccharomyces Boulardii (Florastor) 250 mg PO BID [facility] Last Admin: 11/10/16 17:38 Dose: 250 mg - Labs Labs: 11/10/16 06:12 11/10/16 06:12 PT 15.2 SECONDS (9.7-12.2) H 11/03/16 08:05 INR 1.3 11/03/16 08:05 APTT 32 SECONDS (21-34) 11/03/16 08:05 - Constitutional Appears: Non-toxic, No Acute Distress - Head Exam Head Exam: ATRAUMATIC - Eye Exam Eye Exam: Normal appearance - ENT Exam ENT Exam: Mucous Membranes Moist - Respiratory Exam Respiratory Exam: Decreased Breath Sounds, NORMAL BREATHING PATTERN Additional comments: CHEST TUBES STILL IN. - Cardiovascular Exam Cardiovascular Exam: REGULAR RHYTHM - GI/Abdominal Exam GI & Abdominal Exam: Soft, Normal Bowel Sounds. absent: Tenderness - Rectal Exam Rectal Exam: Deferred - Neurological Exam Neurological Exam: Alert, Awake - Psychiatric Exam Psychiatric exam: Anxious - Skin Skin Exam: Normal Color Assessment and Plan (1) Empyema Status: Acute (2) Pneumonia Status: Acute (3) Pleural effusion on right Status: Acute (4) Bilateral lower extremity edema Status: Resolved (5) Anemia Status: Acute (6) Hyperglycemia Status: Acute (7) HTN (hypertension) Status: Chronic
[2016-11-11] MEDS: Albuterol-Ipratrop 3 mg / 0.5 (3 ml) UD INH SCH ×4 (03:37→20:02)
--- NOTE | 2016-11-11 07:15 | PN ---
DATE: 11/09/2016 The patient so far was covered by the hospitalist. 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 Today, the patient was feeling slightly better. He did not have any fever, but he is having progress ively increasing cough, mostly the cough is dry in nature and also having pain over the right side of the chest. No chills noted. No sweating. The patient is eating okay, but appetite is slightly on the low side. No diarrhea. Bilateral leg swelling noted. This morning, the patient was seen by thoracic surgeon and the plan is to remove the tube probably in 2 days. The drainage in the tubes are on the low side. Two days ago, the patient had a CAT scan of the chest, which is still showing residual pneumonia, as well as the residual pleural effusion on th e right side. Lung expansion is somewhat limited than before. PHYSICAL EXAMINATION: VITAL SIGNS: Today, temperature is 99.3, pulse 98, blood pressure 148/79, saturation is 93% on room air. HEENT: PERRLA. NECK: Supple. CHEST: Bilateral good air entry, decreased on the right lung. ABDOMEN: Soft, nontender. EXTREMITIES: 2+ pedal edema. CENTRAL NERVOUS SYSTEM: Alert, awake, oriented x 3. No functional neurological deficit. LABORATORY DATA: Still elevated blood sugar noted. Sodium is 129, which was done yesterday. Albumi n is on the low side at 2.6. BUN and creatinine is normal. Today, chest x-ray reveals no pneumothor ax, chest tube on the right side. ASSESSMENT AND RECOMMENDATIONS: The patient is a 40-year-old male with history of very poorly contro lled diabetes, admitted with significant right lung pneumonia complicated with parapneumonic effusion , most likely empyema, status post chest tube and VATS, currently still having residually effusion, o n antibiotic as per the infectious disease. So far, the microbiology did not reveal any major organi sms, except pleural fluid showing coagulase negative Staphylococcus aureus; otherwise, the cultures a re negative. We will continue the current treatment on antibiotic and we will follow up the patient. We will repeat the labs in the morning. I explained to the patient regarding the overall prognosis . The patient is having very bad severe pneumonia involving the right whole lung and complicated wit h severe empyema causing slow improvement in the overall disease. He is also having severe anemia, m ost likely anemia on chronic disease, seen by oncologist. We will continue to monitor and we will fo llow up the patient. Brando Hernandez MD cc: [id number] TT: 11/09/2016 22:47:04 Confirmation # [id number] Dictation # [id number]
[2016-11-11 07:26] LABS: BASO % 0.3 % (0.0-2.0); EOS # 0.1 K/uL (0.0-0.7); HEMATOCRIT 24.5 % (35.0-51.0); LYMPH # 0.8 K/uL (1.0-4.3); LYMPH % 12.1 % (20.0-40.0); MEAN CELL VOLUME 82.6 fL (80.0-94.0); MEAN CORPUSCULAR HEMOGLOBIN 27.2 pg (27.0-31.0); MEAN CORPUSCULAR HGB CONC 32.9 g/dL (33.0-37.0); MEAN PLATELET VOLUME 8.5 fL (7.2-11.7); MONO # 0.6 K/uL (0.0-0.8); MONO % 9.4 % (0.0-10.0); RED CELL DISTRIBUTION WIDTH 14.8 % (11.5-14.5); WHITE BLOOD COUNT 6.5 K/uL (4.8-10.8)
[2016-11-11] MEDS: (Novolog) Insulin Aspart, Recombinant 100 u/ml 10 ml vial SC SCH ×4 (07:30→22:00)
[2016-11-11 07:38] LABS: CHLORIDE 91 mmol/L (98-107); SODIUM 131 mmol/L (132-148)
[2016-11-11 07:39] LABS: POTASSIUM 3.4 mmol/L (3.6-5.2)
[2016-11-11 07:41] LABS: ALB/GLOB RATIO 0.6 (1.0-2.1); ALKALINE PHOSPHATASE 91 U/L (38-126); ALT/SGPT 24 U/L (21-72); AST/SGOT 31 U/L (17-59); BILIRUBIN,TOTAL 0.7 mg/dL (0.2-1.3); BLOOD UREA NITROGEN 10 mg/dL (9-20); CARBON DIOXIDE 32 mmol/L (22-30); GFR AFRICAN-AMERICAN > 60; TOTAL PROTEIN 6.8 g/dL (6.3-8.3)
[2016-11-11 07:42] LABS: CALCIUM 7.4 mg/dl (8.6-10.4); GLUCOSE,RANDOM 148 mg/dL (75-110)
--- NOTE | 2016-11-11 07:58 | CP.PCM.PN ---
Subjective - Date & Time of Evaluation Date of Evaluation: 11/11/16 Time of Evaluation: 07:55 - Subjective Subjective: PGY1 Progress note for Dr. Villagomez: Patient seen and examined. Patient states breathing is doing better but still complains of non-productive cough. Patient states he is using the incenctive spirometer often. Patient states he is trying to ambulate but has difficulty due to his chest tubes. Objective - Vital Signs/Intake and Output Vital Signs (last 24 hours): Temp Pulse Resp BP Pulse Ox 98.9 F 84 18 125/70 99 11/11/16 07:20 11/11/16 07:20 11/11/16 07:20 11/11/16 07:20 11/11/16 07:20 Intake and Output: 11/11/16 11/11/16 06:59 18:59 Intake Total 1000 Output Total 672 Balance 328 - Medications Medications: Current Medications Albuterol/Ipratropium (Duoneb 3 Mg/0.5 Mg (3 Ml) Ud) 3 ml INH RQ6 [facility] Last Admin: 11/11/16 07:37 Dose: 3 ml Docusate Sodium (Colace) 100 mg PO BID [facility] Last Admin: 11/10/16 17:37 Dose: Not Given Enoxaparin Sodium (Lovenox) 40 mg SC DAILY [facility] Last Admin: 11/10/16 10:05 Dose: 40 mg Famotidine (Pepcid) 20 mg PO DAILY [facility] Last Admin: 11/10/16 10:04 Dose: 20 mg Telavancin 750 mg/ Sodium (Chloride) 100 mls @ 100 mls/hr IVPB Q24H [facility] Last Admin: 11/10/16 20:00 Dose: 100 mls/hr Imipenem/Cilastatin Sodium 1, (000 mg/ Sodium Chloride) 250 mls @ 250 mls/hr IVPB Q8H [facility] Last Admin: 11/10/16 23:55 Dose: 250 mls/hr Insulin Aspart (Novolog) 0 unit SC ACHS [facility] PRN Reason: Protocol Last Admin: 11/10/16 22:48 Dose: Not Given Insulin Detemir (Levemir) 40 unit SC Q12 [facility] Last Admin: 11/10/16 22:47 Dose: 40 unit Lisinopril (Zestril) 20 mg PO DAILY [facility] Last Admin: 11/10/16 10:03 Dose: 20 mg Metoprolol Tartrate (Lopressor) 50 mg PO Q12H [facility] Last Admin: 11/10/16 21:45 Dose: 50 mg Morphine Sulfate (Morphine) 4 mg IVP Q4 PRN PRN Reason: Pain, moderate (4-7) Last Admin: 11/10/16 22:51 Dose: 4 mg Promethazine HCl/Codeine (Phenergan/Codeine Oral Syrup) 5 ml PO Q4 PRN PRN Reason: Cough Last Admin: 11/10/16 09:55 Dose: 5 ml Saccharomyces Boulardii (Florastor) 250 mg PO BID [facility] Last Admin: 11/10/16 17:38 Dose: 250 mg - Labs Labs: 11/11/16 07:10 11/10/16 06:12 PT 15.2 SECONDS (9.7-12.2) H 11/03/16 08:05 INR 1.3 11/03/16 08:05 APTT 32 SECONDS (21-34) 11/03/16 08:05 - Constitutional Appears: Non-toxic, No Acute Distress - Head Exam Head Exam: ATRAUMATIC, NORMOCEPHALIC - Eye Exam Eye Exam: EOMI - ENT Exam ENT Exam: Mucous Membranes Moist - Respiratory Exam Respiratory Exam: NORMAL BREATHING PATTERN. absent: Rales, Rhonchi Additional comments: chest tubes to suction, no air leak chest tube #1- 60 cc serosanguinous drainage from 3pm yesterday to 7 am today chest tube #2- no output - Neurological Exam Neurological Exam: Alert, Awake - Psychiatric Exam Psychiatric exam: Normal Affect - Skin Skin Exam: Dry, Warm Assessment and Plan - Assessment and Plan (Free Text) Assessment: 40M w. R parapneumonic effusion, s/p VATS converted to thoracotoy, w. decortication and wedge resection POD#8 - c/w daily CXR - dressing changed today - Hgb 8.1 slightly decreased from yesterday - Both chest tubes on the right are on suction, no air leak - Chest tube #1- 60 cc serosanguinous drainage from 3pm yesterday to 7 am today - Chest tube #2- no output - Keep CT to suction - patient may need bronch - Encourage OOB to chair and IS use - D/W Dr. Villagomez
[2016-11-11 07:59] LABS: IMMUNOGLOBULIN G 1897.9 mg/dL (700.0-1600.0)
[2016-11-11 08:00] LABS: IMMUNOGLOBULIN A 510.7 mg/dL (70.0-400.0); IMMUNOGLOBULIN M 54.2 mg/dL (40.0-230.0)
--- NOTE | 2016-11-11 09:21 | RAD ---
HISTORY: s/p thoracomoty and chest tube insertion x2 COMPARISON: 11/10/2016 FINDINGS: LUNGS: There is a right lower lobe infiltrate. PLEURA: Right chest tubes are in place without gross evidence of pneumothorax. CARDIOVASCULAR: Normal. OSSEOUS STRUCTURES: No significant abnormalities. VISUALIZED UPPER ABDOMEN: Normal. OTHER FINDINGS: None. IMPRESSION: Right lower lobe infiltrate without gross pneumothorax. Right-sided chest tubes in place.
[2016-11-11] MEDS: Promethazine/Cod 6.25mg-10mg/5ml Syr UD PO PRN (09:37)
[2016-11-11] MEDS: Enoxaparin 40 mg Syringe SC SCH (09:38)
[2016-11-11] MEDS: Insulin Detemir 100 units/ml Vial (Levemir) SC SCH ×2 (09:48→22:16)
[2016-11-11] MEDS: Saccharomyces Boulardi 250 mg Cap PO SCH ×2 (09:49→17:56)
--- NOTE | 2016-11-11 12:05 | CP.PCM.PN ---
<Florencio Wade - Last Filed: 11/11/16 12:03> Subjective - Date & Time of Evaluation Date of Evaluation: 11/11/16 Time of Evaluation: 12:03 - Subjective Subjective: Cardiology Progress Note Dr. Lin Patient seen and examined at the bedside. No acute distress. No acute events overnight. Patient is POD #7 s/p thoracotomy with Dr. Villagomez. SOB improving. No interval change from prior exams The patient is resting comfortably in the bed. He denies all other complaints this morning. 12 point review of systems was completed and negative except for the above, stated complaints. Objective - Vital Signs/Intake and Output Vital Signs (last 24 hours): Temp Pulse Resp BP Pulse Ox 98.9 F 84 18 125/70 99 11/11/16 07:20 11/11/16 07:20 11/11/16 07:20 11/11/16 07:20 11/11/16 07:20 Intake and Output: 11/11/16 11/11/16 06:59 18:59 Intake Total 1000 Output Total 672 Balance 328 - Medications Medications: Current Medications Albuterol/Ipratropium (Duoneb 3 Mg/0.5 Mg (3 Ml) Ud) 3 ml INH RQ6 [facility] Last Admin: 11/11/16 07:37 Dose: 3 ml Docusate Sodium (Colace) 100 mg PO BID [facility] Last Admin: 11/11/16 09:39 Dose: Not Given Enoxaparin Sodium (Lovenox) 40 mg SC DAILY [facility] Last Admin: 11/11/16 09:38 Dose: 40 mg Famotidine (Pepcid) 20 mg PO DAILY [facility] Last Admin: 11/11/16 09:38 Dose: 20 mg Telavancin 750 mg/ Sodium (Chloride) 100 mls @ 100 mls/hr IVPB Q24H [facility] Last Admin: 11/10/16 20:00 Dose: 100 mls/hr Imipenem/Cilastatin Sodium 1, (000 mg/ Sodium Chloride) 250 mls @ 250 mls/hr IVPB Q8H [facility] Last Admin: 11/10/16 23:55 Dose: 250 mls/hr Insulin Aspart (Novolog) 0 unit SC ACHS [facility] PRN Reason: Protocol Last Admin: 11/11/16 07:30 Dose: Not Given Insulin Detemir (Levemir) 40 unit SC Q12 [facility] Last Admin: 11/11/16 09:48 Dose: 40 unit Lisinopril (Zestril) 20 mg PO DAILY [facility] Last Admin: 11/11/16 09:38 Dose: 20 mg Metoprolol Tartrate (Lopressor) 50 mg PO Q12H [facility] Last Admin: 11/11/16 09:48 Dose: 50 mg Morphine Sulfate (Morphine) 4 mg IVP Q4 PRN PRN Reason: Pain, moderate (4-7) Last Admin: 11/11/16 09:36 Dose: 4 mg Promethazine HCl/Codeine (Phenergan/Codeine Oral Syrup) 5 ml PO Q4 PRN PRN Reason: Cough Last Admin: 11/11/16 09:37 Dose: 5 ml Saccharomyces Boulardii (Florastor) 250 mg PO BID [facility] Last Admin: 11/11/16 09:49 Dose: 250 mg - Labs Labs: 11/11/16 07:10 11/11/16 07:10 PT 15.2 SECONDS (9.7-12.2) H 11/03/16 08:05 INR 1.3 11/03/16 08:05 APTT 32 SECONDS (21-34) 11/03/16 08:05 - Additional Findings Additional findings: - Constitutional Appears: Well, No Acute Distress - Head Exam Head Exam: ATRAUMATIC, NORMAL INSPECTION, NORMOCEPHALIC - Eye Exam Eye Exam: EOMI, Normal appearance Pupil Exam: NORMAL ACCOMODATION - ENT Exam ENT Exam: Mucous Membranes Moist, Normal Exam - Neck Exam Neck exam: Positive for: Full Rom, Normal Inspection. Negative for: Tenderness - Respiratory Exam Respiratory Exam: Clear to Auscultation Bilateral, Decreased Breath Sounds ( improved- R > L), NORMAL BREATHING PATTERN. absent: Accessory Muscle Use, Rales , Rhonchi, Wheezes, Respiratory Distress - Cardiovascular Exam Cardiovascular Exam: REGULAR RHYTHM, +S1, +S2, RRR. absent: Tachycardia, Diastolic murmur, RRR, Systolic Murmur - GI/Abdominal Exam GI & Abdominal Exam: Normal Bowel Sounds, Soft. absent: Distended, Firm, Guarding, Tenderness - Extremities Exam Extremities exam: Positive for: normal capillary refill, normal inspection, pedal pulses present, Edema (race b/l le) - Back Exam Back exam: NORMAL INSPECTION. absent: CVA tenderness (L), CVA tenderness (R) - Neurological Exam Neurological exam: Alert, CN II-XII Intact, Oriented x3 - Skin Skin Exam: Dry, Intact, Normal Color, Warm Assessment and Plan (1) Tachycardia Assessment & Plan: resolved cardiac stable at this point will continue to monitor Lopressor 50mg PO q12 Troponin negative x 2 (<0.0120 x 2) CK-MB negative x 2 (1.00 > 0.63) BNP 102 (normal) 11/04/16 ELG- sinus tachycardia, physiologic axis, normal NV interval, normal QRS duration, prolonged QTc, poor R wave progression, no ST or T wave abnormalities 11/02/16 EKG- sinus tachycardia, right axis deviation, normal NV interval, normal QRS duration, prolonged QTc, nonspecific ST/T wave abnormality 11/03/15 Echo- EF 53%, normal diastolic filling pressures Case Discussed with Dr. Delia Wade PGY1 Status: Resolved (2) Bilateral lower extremity edema Assessment & Plan: Resolved Continue Lasix 20mg IVP q12 José hose stockings Status: Resolved (3) Pre-procedural cardiovascular examination Assessment & Plan: Cardiac Risk Assessment- Low Risk (POD #7 s/p VATS) - Detsky Score 10: Class I - Low Risk - Jenkins Score 3: Class I - Low Risk - Tunde Score 2- Moderate Risk Status: Resolved <Saravanan Lin - Last Filed: 12/29/16 09:26> Objective - Vital Signs/Intake and Output Vital Signs (last 24 hours): Temp Pulse Resp BP Pulse Ox 97.7 F 82 18 120/83 95 11/30/16 08:06 11/30/16 08:06 11/30/16 08:06 11/30/16 08:06 11/30/16 08:06 - Labs Labs: 11/29/16 07:08 11/29/16 07:08 PT 14.4 SECONDS (9.7-12.2) H 11/29/16 07:08 INR 1.3 11/29/16 07:08 APTT 35 SECONDS (21-34) H 11/29/16 07:08 Assessment and Plan (1) HTN (hypertension) Status: Chronic (2) Tachycardia Status: Resolved Attending/Attestation - Attestation I have personally seen and examined this patient.: Yes I have fully participated in the care of the patient.: Yes I have reviewed all pertinent clinical information, including history, physical exam and plan: Yes Notes (Text): 12/29/16 09:26 supplement kathy peña
--- NOTE | 2016-11-11 13:10 | CP.PCM.PN ---
Subjective - Date & Time of Evaluation Date of Evaluation: 11/11/16 Time of Evaluation: 13:07 - Subjective Subjective: Afebrile. wbc-6k hct-26 cxr-consolidation right lower lobe(unchanged) ches tubes-100cc/y serosanguinous- no air leak. a/p: continue chest tubes to suction. Objective - Vital Signs/Intake and Output Vital Signs (last 24 hours): Temp Pulse Resp BP Pulse Ox 98.9 F 84 18 125/70 99 11/11/16 07:20 11/11/16 07:20 11/11/16 07:20 11/11/16 07:20 11/11/16 07:20 Intake and Output: 11/11/16 11/11/16 06:59 18:59 Intake Total 1000 Output Total 672 Balance 328 - Medications Medications: Current Medications Albuterol/Ipratropium (Duoneb 3 Mg/0.5 Mg (3 Ml) Ud) 3 ml INH RQ6 [facility] Last Admin: 11/11/16 07:37 Dose: 3 ml Docusate Sodium (Colace) 100 mg PO BID [facility] Last Admin: 11/11/16 09:39 Dose: Not Given Enoxaparin Sodium (Lovenox) 40 mg SC DAILY [facility] Last Admin: 11/11/16 09:38 Dose: 40 mg Famotidine (Pepcid) 20 mg PO DAILY [facility] Last Admin: 11/11/16 09:38 Dose: 20 mg Telavancin 750 mg/ Sodium (Chloride) 100 mls @ 100 mls/hr IVPB Q24H [facility] Last Admin: 11/10/16 20:00 Dose: 100 mls/hr Imipenem/Cilastatin Sodium 1, (000 mg/ Sodium Chloride) 250 mls @ 250 mls/hr IVPB Q8H [facility] Last Admin: 11/11/16 08:00 Dose: 250 mls/hr Insulin Aspart (Novolog) 0 unit SC ACHS [facility] PRN Reason: Protocol Last Admin: 11/11/16 12:03 Dose: 12 unit Insulin Detemir (Levemir) 40 unit SC Q12 [facility] Last Admin: 11/11/16 09:48 Dose: 40 unit Lisinopril (Zestril) 20 mg PO DAILY [facility] Last Admin: 11/11/16 09:38 Dose: 20 mg Metoprolol Tartrate (Lopressor) 50 mg PO Q12H [facility] Last Admin: 11/11/16 09:48 Dose: 50 mg Morphine Sulfate (Morphine) 4 mg IVP Q4 PRN PRN Reason: Pain, moderate (4-7) Last Admin: 11/11/16 09:36 Dose: 4 mg Promethazine HCl/Codeine (Phenergan/Codeine Oral Syrup) 5 ml PO Q4 PRN PRN Reason: Cough Last Admin: 11/11/16 09:37 Dose: 5 ml Saccharomyces Boulardii (Florastor) 250 mg PO BID [facility] Last Admin: 11/11/16 09:49 Dose: 250 mg - Labs Labs: 11/11/16 07:10 11/11/16 07:10 PT 15.2 SECONDS (9.7-12.2) H 11/03/16 08:05 INR 1.3 11/03/16 08:05 APTT 32 SECONDS (21-34) 11/03/16 08:05
[2016-11-11] MEDS: Telavancin Hydrochloride 750 MG in Sodium Chloride 0.9% 100 ML IVPB SCH (19:45)
--- NOTE | 2016-11-11 21:23 | CP.PCM.PN ---
Subjective - Date & Time of Evaluation Date of Evaluation: 11/11/16 Time of Evaluation: 21:14 - Subjective Subjective: INFECTIOUS DISEASE PROGRESS NOTE MARIA DIAZ MD, FACP 6T 671-B 11/11/2016 CHART REVIEWED PT EXAMINED CASE DISCUSSED CLINICALLY LOOKS BETTER THAN LAST NIGHT. NO TEMPS, NORMAL WBC, BUT STILL WITH DRAINAGE. QUESTION OF LOCULATIONS, CONSIDER REPEAT CT AND IF PRESENT, CONSIDER IR ASPIRATION AND DRAINAGE. REPEAT PLEURAL FLUID. Objective - Vital Signs/Intake and Output Vital Signs (last 24 hours): Temp Pulse Resp BP Pulse Ox 99 F 98 H 20 130/77 98 11/11/16 15:00 11/11/16 20:36 11/11/16 15:00 11/11/16 20:36 11/11/16 15:00 - Medications Medications: Current Medications Albuterol/Ipratropium (Duoneb 3 Mg/0.5 Mg (3 Ml) Ud) 3 ml INH RQ6 [facility] Last Admin: 11/11/16 20:02 Dose: 3 ml Docusate Sodium (Colace) 100 mg PO BID [facility] Last Admin: 11/11/16 17:57 Dose: Not Given Enoxaparin Sodium (Lovenox) 40 mg SC DAILY [facility] Last Admin: 11/11/16 09:38 Dose: 40 mg Famotidine (Pepcid) 20 mg PO DAILY [facility] Last Admin: 11/11/16 09:38 Dose: 20 mg Telavancin 750 mg/ Sodium (Chloride) 100 mls @ 100 mls/hr IVPB Q24H [facility] Last Admin: 11/11/16 19:45 Dose: 100 mls/hr Imipenem/Cilastatin Sodium 1, (000 mg/ Sodium Chloride) 250 mls @ 250 mls/hr IVPB Q8H [facility] Last Admin: 11/11/16 16:19 Dose: 250 mls/hr Insulin Aspart (Novolog) 0 unit SC ACHS [facility] PRN Reason: Protocol Last Admin: 11/11/16 17:57 Dose: 8 unit Insulin Detemir (Levemir) 40 unit SC Q12 [facility] Last Admin: 11/11/16 09:48 Dose: 40 unit Lisinopril (Zestril) 20 mg PO DAILY [facility] Last Admin: 11/11/16 09:38 Dose: 20 mg Metoprolol Tartrate (Lopressor) 50 mg PO Q12H [facility] Last Admin: 11/11/16 20:36 Dose: 50 mg Morphine Sulfate (Morphine) 4 mg IVP Q4 PRN PRN Reason: Pain, moderate (4-7) Last Admin: 11/11/16 16:19 Dose: 4 mg Promethazine HCl/Codeine (Phenergan/Codeine Oral Syrup) 5 ml PO Q4 PRN PRN Reason: Cough Last Admin: 11/11/16 09:37 Dose: 5 ml Saccharomyces Boulardii (Florastor) 250 mg PO BID [facility] Last Admin: 11/11/16 17:56 Dose: 250 mg - Labs Labs: 11/11/16 07:10 11/11/16 07:10 PT 15.2 SECONDS (9.7-12.2) H 11/03/16 08:05 INR 1.3 11/03/16 08:05 APTT 32 SECONDS (21-34) 11/03/16 08:05 - Constitutional Appears: Non-toxic, No Acute Distress - Head Exam Head Exam: ATRAUMATIC - Eye Exam Eye Exam: Normal appearance - ENT Exam ENT Exam: Mucous Membranes Moist - Respiratory Exam Respiratory Exam: Decreased Breath Sounds, NORMAL BREATHING PATTERN - Cardiovascular Exam Cardiovascular Exam: REGULAR RHYTHM - GI/Abdominal Exam GI & Abdominal Exam: Soft, Normal Bowel Sounds. absent: Tenderness - Rectal Exam Rectal Exam: Deferred - Neurological Exam Neurological Exam: Alert, Awake - Psychiatric Exam Psychiatric exam: Anxious Assessment and Plan (1) Empyema Status: Acute (2) Pneumonia Status: Acute (3) Pleural effusion on right Status: Acute (4) Bilateral lower extremity edema Status: Resolved (5) Anemia Status: Chronic (6) Hyperglycemia Status: Acute (7) HTN (hypertension) Status: Chronic
--- NOTE | 2016-11-11 23:52 | PN ---
DATE: 11/11/2016 SUBJECTIVE: The patient is currently doing much better. His cough is less than yesterday. He is ea ting slightly better than yesterday. Appetite is good. No nausea or vomiting. Chest tube is on the right side; 2 chest tubes still noted. One of the chest tubes is still draining a significant amoun t of fluid. Abdominal pain is negative. Leg swelling is positive on the right leg more swelling janessa n the left leg. Will try to get a vascular Doppler again on the right leg. PHYSICAL EXAMINATION: VITAL SIGNS: Today, temperature 98.9, pulse 84, blood pressure 125/78, respiration is 18, saturation is 99% on nasal cannula. HEENT: PERRLA. NECK: Supple. CHEST: Right side with decreased air entry, left lung clear. CARDIOVASCULAR: Regular heart sounds. ABDOMEN: Nontender. EXTREMITIES: Edema, right more than the left. LABORATORY DATA: Were done today showing evidence of sodium of 131, potassium is 3.4, BUN and creati nine is normal. Glucose level is much better than yesterday. Elevated CRP is still noted. Chest x- ray showing some improvement in the right upper lung haziness. ASSESSMENT AND RECOMMENDATIONS: This is a 40-year-old male with a history of diabetes, hypertension, hypercholesterolemia, admitted with severe empyema right lung and associated consolidation, status p ost VATS and chest tube, slowly improving on antibiotics. Will continue to monitor and will repeat t he chest x-ray. Will follow up the patient. I explained to the patient regarding the importance of the IV antibiotic. He may need a PICC line and will follow up the patient. Brando Hernandez MD cc: [id number] TT: 11/11/2016 23:51:40 Confirmation # [id number] Dictation # [id number]
[2016-11-12] MEDS: Albuterol-Ipratrop 3 mg / 0.5 (3 ml) UD INH SCH ×4 (01:28→20:12)
[2016-11-12] MEDS: (Novolog) Insulin Aspart, Recombinant 100 u/ml 10 ml vial SC SCH ×3 (07:35→22:55)
--- NOTE | 2016-11-12 07:57 | CP.PCM.PN ---
Subjective - Date & Time of Evaluation Date of Evaluation: 11/12/16 Time of Evaluation: 07:54 - Subjective Subjective: Pt at bedside in pain at tube/surgery site Objective - Vital Signs/Intake and Output Vital Signs (last 24 hours): Temp Pulse Resp BP Pulse Ox 100.1 F H 92 H 20 162/89 H 95 11/11/16 23:50 11/11/16 23:50 11/11/16 23:50 11/11/16 23:50 11/11/16 23:50 Intake and Output: 11/12/16 11/12/16 06:59 18:59 Intake Total 250 Output Total 30 32 Balance -30 218 - Medications Medications: Current Medications Albuterol/Ipratropium (Duoneb 3 Mg/0.5 Mg (3 Ml) Ud) 3 ml INH RQ6 [facility] Last Admin: 11/12/16 01:28 Dose: 3 ml Docusate Sodium (Colace) 100 mg PO BID [facility] Last Admin: 11/11/16 17:57 Dose: Not Given Enoxaparin Sodium (Lovenox) 40 mg SC DAILY [facility] Last Admin: 11/11/16 09:38 Dose: 40 mg Famotidine (Pepcid) 20 mg PO DAILY [facility] Last Admin: 11/11/16 09:38 Dose: 20 mg Glipizide (Glucotrol) 2.5 mg PO DAILY [facility] Telavancin 750 mg/ Sodium (Chloride) 100 mls @ 100 mls/hr IVPB Q24H [facility] Last Admin: 11/11/16 19:45 Dose: 100 mls/hr Imipenem/Cilastatin Sodium 1, (000 mg/ Sodium Chloride) 250 mls @ 250 mls/hr IVPB Q8H [facility] Last Admin: 11/12/16 07:01 Dose: 250 mls/hr Insulin Aspart (Novolog) 0 unit SC ACHS [facility] PRN Reason: Protocol Last Admin: 11/11/16 22:00 Dose: Not Given Insulin Detemir (Levemir) 40 unit SC Q12 [facility] Last Admin: 11/11/16 22:16 Dose: 40 unit Lisinopril (Zestril) 20 mg PO DAILY [facility] Last Admin: 11/11/16 09:38 Dose: 20 mg Metoprolol Tartrate (Lopressor) 50 mg PO Q12H [facility] Last Admin: 11/11/16 20:36 Dose: 50 mg Morphine Sulfate (Morphine) 4 mg IVP Q4 PRN PRN Reason: Pain, moderate (4-7) Last Admin: 11/12/16 03:59 Dose: 4 mg Promethazine HCl/Codeine (Phenergan/Codeine Oral Syrup) 5 ml PO Q4 PRN PRN Reason: Cough Last Admin: 11/11/16 09:37 Dose: 5 ml Saccharomyces Boulardii (Florastor) 250 mg PO BID [facility] Last Admin: 11/11/16 17:56 Dose: 250 mg - Labs Labs: 11/11/16 07:10 11/11/16 07:10 PT 15.2 SECONDS (9.7-12.2) H 11/03/16 08:05 INR 1.3 11/03/16 08:05 APTT 32 SECONDS (21-34) 11/03/16 08:05 - Constitutional Appears: Chronically Ill - Head Exam Head Exam: NORMOCEPHALIC - Eye Exam Eye Exam: Normal appearance - ENT Exam ENT Exam: Mucous Membranes Moist - Respiratory Exam Respiratory Exam: NORMAL BREATHING PATTERN - Cardiovascular Exam Cardiovascular Exam: REGULAR RHYTHM - GI/Abdominal Exam GI & Abdominal Exam: Normal Bowel Sounds - Exam External exam: NORMAL EXTERNAL EXAM - Extremities Exam Extremities Exam: Normal Inspection - Neurological Exam Neurological Exam: Awake - Psychiatric Exam Psychiatric exam: Normal Mood - Skin Skin Exam: Pallor Assessment and Plan (1) HTN (hypertension) Assessment & Plan: less tachycardic bp elevated continue med pain control Status: Chronic
--- NOTE | 2016-11-12 09:19 | CP.PCM.PN ---
Subjective - Date & Time of Evaluation Date of Evaluation: 11/12/16 Time of Evaluation: 07:00 - Subjective Subjective: THORACIC SURGERY PROGRESS NOTE FOR DR. AYERS Patient seen and examined at bedside. He denies SOB. He still has some discomfort to the chest tube sites. He is tolerating his diet. Objective - Vital Signs/Intake and Output Vital Signs (last 24 hours): Temp Pulse Resp BP Pulse Ox 98.5 F 81 18 135/79 97 11/12/16 07:05 11/12/16 07:05 11/12/16 07:05 11/12/16 07:05 11/12/16 07:05 Intake and Output: 11/12/16 11/12/16 06:59 18:59 Intake Total 250 Output Total 30 32 Balance -30 218 - Medications Medications: Current Medications Albuterol/Ipratropium (Duoneb 3 Mg/0.5 Mg (3 Ml) Ud) 3 ml INH RQ6 [facility] Last Admin: 11/12/16 08:05 Dose: 3 ml Docusate Sodium (Colace) 100 mg PO BID [facility] Last Admin: 11/11/16 17:57 Dose: Not Given Enoxaparin Sodium (Lovenox) 40 mg SC DAILY [facility] Last Admin: 11/11/16 09:38 Dose: 40 mg Famotidine (Pepcid) 20 mg PO DAILY [facility] Last Admin: 11/11/16 09:38 Dose: 20 mg Glipizide (Glucotrol) 2.5 mg PO DAILY [facility] Telavancin 750 mg/ Sodium (Chloride) 100 mls @ 100 mls/hr IVPB Q24H [facility] Last Admin: 11/11/16 19:45 Dose: 100 mls/hr Imipenem/Cilastatin Sodium 1, (000 mg/ Sodium Chloride) 250 mls @ 250 mls/hr IVPB Q8H [facility] Last Admin: 11/12/16 07:01 Dose: 250 mls/hr Insulin Aspart (Novolog) 0 unit SC ACHS [facility] PRN Reason: Protocol Last Admin: 11/12/16 07:35 Dose: Not Given Insulin Detemir (Levemir) 40 unit SC Q12 [facility] Last Admin: 11/11/16 22:16 Dose: 40 unit Lisinopril (Zestril) 20 mg PO DAILY [facility] Last Admin: 11/11/16 09:38 Dose: 20 mg Metoprolol Tartrate (Lopressor) 50 mg PO Q12H [facility] Last Admin: 11/11/16 20:36 Dose: 50 mg Morphine Sulfate (Morphine) 4 mg IVP Q4 PRN PRN Reason: Pain, moderate (4-7) Last Admin: 11/12/16 03:59 Dose: 4 mg Promethazine HCl/Codeine (Phenergan/Codeine Oral Syrup) 5 ml PO Q4 PRN PRN Reason: Cough Last Admin: 11/11/16 09:37 Dose: 5 ml Saccharomyces Boulardii (Florastor) 250 mg PO BID [facility] Last Admin: 11/11/16 17:56 Dose: 250 mg - Labs Labs: 11/11/16 07:10 11/11/16 07:10 PT 15.2 SECONDS (9.7-12.2) H 11/03/16 08:05 INR 1.3 11/03/16 08:05 APTT 32 SECONDS (21-34) 11/03/16 08:05 - Constitutional Appears: Non-toxic, No Acute Distress - Head Exam Head Exam: ATRAUMATIC, NORMAL INSPECTION - Respiratory Exam Respiratory Exam: NORMAL BREATHING PATTERN. absent: Respiratory Distress Additional comments: Right chest tubes in place on suction with no air leak: Chest tube #1: 90cc output over past 24 hours Chest tube #2: 0cc output over past 24 hours - Cardiovascular Exam Cardiovascular Exam: +S1, +S2 - Neurological Exam Neurological Exam: Alert, Awake - Psychiatric Exam Psychiatric exam: Normal Affect, Normal Mood - Skin Skin Exam: Dry, Normal Color, Warm Assessment and Plan - Assessment and Plan (Free Text) Assessment: 40M w. R parapneumonic effusion, s/p VATS converted to thoracotoy, w. decortication and wedge resection POD#9 - Tmax 100.1, VSS - FU Am labs - Daily CXR - Both chest tubes on right on suction, no air leak - Chest tube #1- 90 cc serosanguinous drainage over past 24 hours - Chest tube #2- 0 cc serosanguinous drainage over past 24 hours - Keep CT to suction - Strongly encouraged OOB to chair and ambulation. - Discussed plan with Dr. Hernando Avalos PGy-2
[2016-11-12] MEDS: Promethazine/Cod 6.25mg-10mg/5ml Syr UD PO PRN (11:09)
[2016-11-12] MEDS: Insulin Detemir 100 units/ml Vial (Levemir) SC SCH ×2 (11:10→21:42)
[2016-11-12] MEDS: Saccharomyces Boulardi 250 mg Cap PO SCH ×3 (11:10→21:46)
[2016-11-12] MEDS: Enoxaparin 40 mg Syringe SC SCH (11:10)
[2016-11-12] MEDS: GlipiZIDE 2.5 mg Tab PO SCH (11:11)
--- NOTE | 2016-11-12 13:27 | RAD ---
HISTORY: Right chest tubes. Portable study 08:53. COMPARISON: Multiple serial examinations preceding the most recent study: November 11, 2016. FINDINGS: LUNGS: Right lower lobe consolidative changes. PLEURA: No significant interval change compared to the prior examination(s). This includes chest tubes in the right pleural space and partially loculated right pleural effusion. No pneumothorax identified. CARDIOVASCULAR: No radiographic findings to suggest acute or significant cardiovascular disease. OSSEOUS STRUCTURES: No significant abnormalities. VISUALIZED UPPER ABDOMEN: Normal. OTHER FINDINGS: None. IMPRESSION: No significant interval change compared to the prior examination(s).
[2016-11-12 14:34] LABS: BASO % 0.3 % (0.0-2.0); EOS # 0.1 K/uL (0.0-0.7); EOS % 1.8 % (0.0-4.0); LYMPH % 16.8 % (20.0-40.0); MEAN CELL VOLUME 83.8 fL (80.0-94.0); MEAN CORPUSCULAR HEMOGLOBIN 27.4 pg (27.0-31.0); MEAN CORPUSCULAR HGB CONC 32.7 g/dL (33.0-37.0); MEAN PLATELET VOLUME 9.3 fL (7.2-11.7); MONO # 0.6 K/uL (0.0-0.8); MONO % 9.7 % (0.0-10.0); NRBC % 0.1 % (0.0-2.0)
[2016-11-12 14:53] LABS: CHLORIDE 90 mmol/L (98-107); POTASSIUM 3.6 mmol/L (3.6-5.2); SODIUM 129 mmol/L (132-148)
[2016-11-12 14:55] LABS: GFR AFRICAN-AMERICAN > 60
[2016-11-12 14:56] LABS: BLOOD UREA NITROGEN 11 mg/dL (9-20); CARBON DIOXIDE 25 mmol/L (22-30); GLUCOSE,RANDOM 291 mg/dL (75-110)
[2016-11-12 14:57] LABS: CALCIUM 7.4 mg/dl (8.6-10.4)
--- NOTE | 2016-11-12 18:31 | CP.PCM.PN ---
Subjective - Date & Time of Evaluation Date of Evaluation: 11/12/16 Time of Evaluation: 18:28 - Subjective Subjective: INFECTIOUS DISEASE PROGRESS NOTE MARIA DIAZ MD, FACP 6T [id number]-B 11/12/2016 CHART REVIEWED PT EXAMINED CASE DISCUSSED WITH STAFF AND PMD PT LOOKS BETTER TODAY CXR PER DR SUE QUESTION OF NEW DIARRHEA MADE KNOW TO ME BY PT. TO CHECK HIS STOOLS AND RECOMMEND REPEAT CT OF CHEST THIS WEEK. Objective - Vital Signs/Intake and Output Vital Signs (last 24 hours): Temp Pulse Resp BP Pulse Ox 98.8 F 89 20 138/86 96 11/12/16 16:45 11/12/16 16:45 11/12/16 16:45 11/12/16 16:45 11/12/16 16:45 Intake and Output: 11/12/16 11/12/16 06:59 18:59 Intake Total 250 Output Total 30 32 Balance -30 218 - Medications Medications: Current Medications Albuterol/Ipratropium (Duoneb 3 Mg/0.5 Mg (3 Ml) Ud) 3 ml INH RQ6 [facility] Last Admin: 11/12/16 13:30 Dose: 3 ml Docusate Sodium (Colace) 100 mg PO BID [facility] Last Admin: 11/12/16 17:55 Dose: Not Given Famotidine (Pepcid) 20 mg PO DAILY [facility] Last Admin: 11/12/16 11:10 Dose: 20 mg Glipizide (Glucotrol) 2.5 mg PO DAILY [facility] Last Admin: 11/12/16 11:11 Dose: 2.5 mg Telavancin 750 mg/ Sodium (Chloride) 100 mls @ 100 mls/hr IVPB Q24H [facility] Last Admin: 11/11/16 19:45 Dose: 100 mls/hr Imipenem/Cilastatin Sodium 1, (000 mg/ Sodium Chloride) 250 mls @ 250 mls/hr IVPB Q8H [facility] Last Admin: 11/12/16 16:54 Dose: 250 mls/hr Insulin Aspart (Novolog) 0 unit SC ACHS [facility] PRN Reason: Protocol Last Admin: 11/12/16 17:54 Dose: 1 unit Insulin Detemir (Levemir) 40 unit SC Q12 [facility] Last Admin: 11/12/16 11:10 Dose: 40 unit Lisinopril (Zestril) 20 mg PO DAILY [facility] Last Admin: 11/12/16 11:09 Dose: 20 mg Metoprolol Tartrate (Lopressor) 50 mg PO Q12H [facility] Last Admin: 11/12/16 11:11 Dose: 50 mg Morphine Sulfate (Morphine) 4 mg IVP Q4 PRN PRN Reason: Pain, moderate (4-7) Last Admin: 11/12/16 11:03 Dose: 4 mg Promethazine HCl/Codeine (Phenergan/Codeine Oral Syrup) 5 ml PO Q4 PRN PRN Reason: Cough Last Admin: 11/12/16 11:09 Dose: 5 ml Saccharomyces Boulardii (Florastor) 250 mg PO BID [facility] Last Admin: 11/12/16 17:54 Dose: 250 mg - Labs Labs: 11/12/16 14:25 11/12/16 14:25 PT 15.2 SECONDS (9.7-12.2) H 11/03/16 08:05 INR 1.3 11/03/16 08:05 APTT 32 SECONDS (21-34) 11/03/16 08:05 - Constitutional Appears: Non-toxic, No Acute Distress - Head Exam Head Exam: ATRAUMATIC - Eye Exam Eye Exam: Normal appearance - ENT Exam ENT Exam: Mucous Membranes Moist - Neck Exam Neck Exam: Normal Inspection - Respiratory Exam Respiratory Exam: Decreased Breath Sounds, NORMAL BREATHING PATTERN - Cardiovascular Exam Cardiovascular Exam: REGULAR RHYTHM - GI/Abdominal Exam GI & Abdominal Exam: Soft, Normal Bowel Sounds. absent: Distended, Firm, Guarding, Tenderness, Rebound - Rectal Exam Rectal Exam: Deferred - Extremities Exam Extremities Exam: absent: Tenderness - Back Exam Back Exam: NORMAL INSPECTION - Neurological Exam Neurological Exam: Alert, Awake - Psychiatric Exam Psychiatric exam: Normal Affect, Normal Mood - Skin Skin Exam: Warm Assessment and Plan (1) Empyema Status: Acute (2) Pneumonia Status: Acute (3) Pleural effusion on right Status: Acute (4) Bilateral lower extremity edema Status: Resolved (5) Anemia Status: Chronic (6) Hyperglycemia Status: Acute (7) HTN (hypertension) Status: Chronic (8) Diarrhea Assessment & Plan: W/U FOR C DIFF Status: Acute
[2016-11-13] MEDS: Albuterol-Ipratrop 3 mg / 0.5 (3 ml) UD INH SCH ×4 (01:08→20:15)
--- NOTE | 2016-11-13 07:28 | CP.PCM.PN ---
Subjective - Date & Time of Evaluation Date of Evaluation: 11/13/16 Time of Evaluation: 07:20 - Subjective Subjective: no complaints this am stable Objective - Vital Signs/Intake and Output Vital Signs (last 24 hours): Temp Pulse Resp BP Pulse Ox 98.9 F 85 20 133/83 98 11/12/16 23:40 11/12/16 23:40 11/12/16 23:40 11/12/16 23:40 11/12/16 23:40 Intake and Output: 11/13/16 11/13/16 06:59 18:59 Intake Total 100 Output Total 40 Balance 60 - Medications Medications: Current Medications Albuterol/Ipratropium (Duoneb 3 Mg/0.5 Mg (3 Ml) Ud) 3 ml INH RQ6 [facility] Last Admin: 11/13/16 01:08 Dose: 3 ml Docusate Sodium (Colace) 100 mg PO BID [facility] Last Admin: 11/12/16 17:55 Dose: Not Given Famotidine (Pepcid) 20 mg PO DAILY [facility] Last Admin: 11/12/16 11:10 Dose: 20 mg Glipizide (Glucotrol) 2.5 mg PO DAILY [facility] Last Admin: 11/12/16 11:11 Dose: 2.5 mg Imipenem/Cilastatin Sodium 1, (000 mg/ Sodium Chloride) 250 mls @ 250 mls/hr IVPB Q8H [facility] Last Admin: 11/13/16 00:13 Dose: 250 mls/hr Insulin Aspart (Novolog) 0 unit SC ACHS [facility] PRN Reason: Protocol Last Admin: 11/12/16 22:55 Dose: Not Given Insulin Detemir (Levemir) 40 unit SC Q12 [facility] Last Admin: 11/12/16 21:42 Dose: 40 unit Lisinopril (Zestril) 20 mg PO DAILY [facility] Last Admin: 11/12/16 11:09 Dose: 20 mg Metoprolol Tartrate (Lopressor) 50 mg PO Q12H [facility] Last Admin: 11/12/16 21:42 Dose: 50 mg Morphine Sulfate (Morphine) 4 mg IVP Q4 PRN PRN Reason: Pain, moderate (4-7) Last Admin: 11/13/16 05:49 Dose: 4 mg Promethazine HCl/Codeine (Phenergan/Codeine Oral Syrup) 5 ml PO Q4 PRN PRN Reason: Cough Last Admin: 11/12/16 11:09 Dose: 5 ml Saccharomyces Boulardii (Florastor) 500 mg PO BID [facility] Last Admin: 11/12/16 21:46 Dose: Not Given - Labs Labs: 11/12/16 14:25 11/12/16 14:25 PT 15.2 SECONDS (9.7-12.2) H 11/03/16 08:05 INR 1.3 11/03/16 08:05 APTT 32 SECONDS (21-34) 11/03/16 08:05 - Constitutional Appears: Well - Head Exam Head Exam: ATRAUMATIC, NORMOCEPHALIC - Eye Exam Eye Exam: Normal appearance - ENT Exam ENT Exam: Mucous Membranes Moist - Respiratory Exam Respiratory Exam: Rhonchi - Cardiovascular Exam Cardiovascular Exam: REGULAR RHYTHM - GI/Abdominal Exam GI & Abdominal Exam: Soft - Exam External exam: NORMAL EXTERNAL EXAM - Extremities Exam Extremities Exam: Normal Inspection - Neurological Exam Neurological Exam: Alert - Psychiatric Exam Psychiatric exam: Normal Affect - Skin Skin Exam: Warm Assessment and Plan (1) Pneumonia Assessment & Plan: continue abx bp control Status: Acute
[2016-11-13] MEDS: (Novolog) Insulin Aspart, Recombinant 100 u/ml 10 ml vial SC SCH ×4 (07:30→21:48)
[2016-11-13 08:39] LABS: BASO % 0.2 % (0.0-2.0); EOS # 0.1 K/uL (0.0-0.7); EOS % 1.3 % (0.0-4.0); HEMATOCRIT 25.2 % (35.0-51.0); LYMPH # 1.4 K/uL (1.0-4.3); LYMPH % 19.7 % (20.0-40.0); MEAN CELL VOLUME 82.9 fL (80.0-94.0); MEAN CORPUSCULAR HEMOGLOBIN 27.3 pg (27.0-31.0); MEAN PLATELET VOLUME 8.7 fL (7.2-11.7); MONO # 0.8 K/uL (0.0-0.8); MONO % 11.6 % (0.0-10.0); RED CELL DISTRIBUTION WIDTH 14.8 % (11.5-14.5); WHITE BLOOD COUNT 6.9 K/uL (4.8-10.8)
[2016-11-13 09:01] LABS: CHLORIDE 92 mmol/L (98-107); POTASSIUM 3.6 mmol/L (3.6-5.2); SODIUM 133 mmol/L (132-148)
[2016-11-13] MEDS: GlipiZIDE 2.5 mg Tab PO SCH (09:03)
[2016-11-13 09:04] LABS: BLOOD UREA NITROGEN 10 mg/dL (9-20); CARBON DIOXIDE 30 mmol/L (22-30); GFR AFRICAN-AMERICAN > 60; GLUCOSE,RANDOM 134 mg/dL (75-110)
[2016-11-13] MEDS: Insulin Detemir 100 units/ml Vial (Levemir) SC SCH ×2 (09:04→21:48)
[2016-11-13 09:05] LABS: CALCIUM 7.7 mg/dl (8.6-10.4)
[2016-11-13] MEDS: Promethazine/Cod 6.25mg-10mg/5ml Syr UD PO PRN (09:05)
[2016-11-13] MEDS: Saccharomyces Boulardi 250 mg Cap PO SCH ×2 (09:05→17:47)
[2016-11-13 10:23] LABS: C DIFF TOXIN A B POSITIVE (NEGATIVE); FECAL LEUKOCYTES NEGATIVE (NEGATIVE)
[2016-11-13] MEDS ORDERED: Vancomycin 125 MG/5 ML SOLN (ORAL/RECTAL) PO SCH (11:04)
[2016-11-13] MEDS: Vancomycin 125 MG/5 ML SOLN (ORAL/RECTAL) PO SCH ×2 (12:00→17:48)
--- NOTE | 2016-11-13 13:46 | RAD ---
HISTORY: Right chest tubes. Portable study 08:20. COMPARISON: Multiple serial examinations preceding the most recent study: November 12, 2016. FINDINGS: LUNGS: Stable consolidative changes right lung. PLEURA: Stable findings right pleural space including persistent partially loculated pleural effusion. Two chest tubes in the right pleural space unchanged. No appreciable pneumothorax. CARDIOVASCULAR: Normal. OSSEOUS STRUCTURES: No significant abnormalities. VISUALIZED UPPER ABDOMEN: Normal. OTHER FINDINGS: None. IMPRESSION: No significant interval change compared to the prior examination(s).
--- NOTE | 2016-11-13 14:49 | CP.PCM.PN ---
Subjective - Date & Time of Evaluation Date of Evaluation: 11/13/16 Time of Evaluation: 09:00 - Subjective Subjective: THORACIC SURGERY PROGRESS NOTE FOR DR. AYERS Patient seen and examined at bedside. He denies SOB. He still has some discomfort to the chest tube sites. He is tolerating his diet. He has had a lot of diarrhea today and yesterday. C diff is +. Objective - Vital Signs/Intake and Output Vital Signs (last 24 hours): Temp Pulse Resp BP Pulse Ox 98.6 F 89 20 133/85 97 11/13/16 07:00 11/13/16 07:00 11/13/16 07:00 11/13/16 07:00 11/13/16 07:00 Intake and Output: 11/13/16 11/13/16 06:59 18:59 Intake Total 100 Output Total 60 Balance 40 - Medications Medications: Current Medications Albuterol/Ipratropium (Duoneb 3 Mg/0.5 Mg (3 Ml) Ud) 3 ml INH RQ6 [facility] Last Admin: 11/13/16 14:33 Dose: 3 ml Docusate Sodium (Colace) 100 mg PO BID [facility] Last Admin: 11/13/16 09:08 Dose: Not Given Famotidine (Pepcid) 20 mg PO DAILY [facility] Last Admin: 11/13/16 09:02 Dose: 20 mg Glipizide (Glucotrol) 2.5 mg PO DAILY [facility] Last Admin: 11/13/16 09:03 Dose: 2.5 mg Imipenem/Cilastatin Sodium 1, (000 mg/ Sodium Chloride) 250 mls @ 250 mls/hr IVPB Q8H [facility] Last Admin: 11/13/16 08:00 Dose: 250 mls/hr Insulin Aspart (Novolog) 0 unit SC ACHS [facility] PRN Reason: Protocol Last Admin: 11/13/16 12:00 Dose: 6 unit Insulin Detemir (Levemir) 40 unit SC Q12 [facility] Last Admin: 11/13/16 09:04 Dose: 40 unit Lisinopril (Zestril) 20 mg PO DAILY [facility] Last Admin: 11/13/16 09:02 Dose: 20 mg Metoprolol Tartrate (Lopressor) 50 mg PO Q12H [facility] Last Admin: 11/13/16 09:08 Dose: 50 mg Morphine Sulfate (Morphine) 4 mg IVP Q4 PRN PRN Reason: Pain, moderate (4-7) Last Admin: 11/13/16 14:09 Dose: 4 mg Promethazine HCl/Codeine (Phenergan/Codeine Oral Syrup) 5 ml PO Q4 PRN PRN Reason: Cough Last Admin: 11/13/16 09:05 Dose: 5 ml Saccharomyces Boulardii (Florastor) 500 mg PO BID [facility] Last Admin: 11/13/16 09:05 Dose: 500 mg Vancomycin HCl (Vancocin (Oral Or Rectal Use)) 125 mg PO Q6 [facility] Last Admin: 11/13/16 12:00 Dose: Not Given - Labs Labs: 11/13/16 08:26 11/13/16 08:26 PT 15.2 SECONDS (9.7-12.2) H 11/03/16 08:05 INR 1.3 11/03/16 08:05 APTT 32 SECONDS (21-34) 11/03/16 08:05 - Constitutional Appears: Non-toxic, No Acute Distress - Respiratory Exam Respiratory Exam: NORMAL BREATHING PATTERN. absent: Respiratory Distress Additional comments: Right chest tubes in place on suction with no air leak: Chest tube #1: 60cc output over past 24 hours Chest tube #2: 0cc output over past 24 hours - Cardiovascular Exam Cardiovascular Exam: +S1, +S2 - Neurological Exam Neurological Exam: Alert, Awake, Oriented x3 - Psychiatric Exam Psychiatric exam: Normal Affect, Normal Mood - Skin Skin Exam: Normal Color, Warm Assessment and Plan - Assessment and Plan (Free Text) Assessment: 40M w. R parapneumonic effusion, s/p VATS converted to thoracotomy, w. decortication and wedge resection POD#10 - Afebrile, VSS - Daily CXR - Both chest tubes on right on suction, no air leak - Chest tube #1- 60 cc serosanguinous drainage over past 24 hours - Chest tube #2- 0 cc serosanguinous drainage over past 24 hours - Keep CT to suction - Strongly encouraged OOB to chair and ambulation. - Dressing changed this AM - C diff +, on Vanco PO - Will FU pleural fluid cx - Discussed plan with Dr. Hernando Avalos PGy-2
--- NOTE | 2016-11-13 16:18 | CP.PCM.PN ---
Subjective - Date & Time of Evaluation Date of Evaluation: 11/13/16 Time of Evaluation: 16:14 - Subjective Subjective: Pt s/e. afebrile. wbc 6k hct-25 chest tubes-serosanguinous(h/h=1.7/1.3).90cc/y No air leak. Chest xrqay-Right lower lung consolidation. a/p: Continue chest tubes. PICC line and ct chest tomorrow. Objective - Vital Signs/Intake and Output Vital Signs (last 24 hours): Temp Pulse Resp BP Pulse Ox 98.6 F 89 20 133/85 97 11/13/16 07:00 11/13/16 07:00 11/13/16 07:00 11/13/16 07:00 11/13/16 07:00 Intake and Output: 11/13/16 11/13/16 06:59 18:59 Intake Total 100 Output Total 60 Balance 40 - Medications Medications: Current Medications Albuterol/Ipratropium (Duoneb 3 Mg/0.5 Mg (3 Ml) Ud) 3 ml INH RQ6 [facility] Last Admin: 11/13/16 14:33 Dose: 3 ml Docusate Sodium (Colace) 100 mg PO BID [facility] Last Admin: 11/13/16 09:08 Dose: Not Given Famotidine (Pepcid) 20 mg PO DAILY [facility] Last Admin: 11/13/16 09:02 Dose: 20 mg Glipizide (Glucotrol) 2.5 mg PO DAILY [facility] Last Admin: 11/13/16 09:03 Dose: 2.5 mg Imipenem/Cilastatin Sodium 1, (000 mg/ Sodium Chloride) 250 mls @ 250 mls/hr IVPB Q8H [facility] Last Admin: 11/13/16 08:00 Dose: 250 mls/hr Insulin Aspart (Novolog) 0 unit SC ACHS [facility] PRN Reason: Protocol Last Admin: 11/13/16 12:00 Dose: 6 unit Insulin Detemir (Levemir) 40 unit SC Q12 [facility] Last Admin: 11/13/16 09:04 Dose: 40 unit Lisinopril (Zestril) 20 mg PO DAILY [facility] Last Admin: 11/13/16 09:02 Dose: 20 mg Metoprolol Tartrate (Lopressor) 50 mg PO Q12H [facility] Last Admin: 11/13/16 09:08 Dose: 50 mg Morphine Sulfate (Morphine) 4 mg IVP Q4 PRN PRN Reason: Pain, moderate (4-7) Last Admin: 11/13/16 14:09 Dose: 4 mg Promethazine HCl/Codeine (Phenergan/Codeine Oral Syrup) 5 ml PO Q4 PRN PRN Reason: Cough Last Admin: 11/13/16 09:05 Dose: 5 ml Saccharomyces Boulardii (Florastor) 500 mg PO BID [facility] Last Admin: 11/13/16 09:05 Dose: 500 mg Vancomycin HCl (Vancocin (Oral Or Rectal Use)) 125 mg PO Q6 [facility] Last Admin: 11/13/16 12:00 Dose: Not Given - Labs Labs: 11/13/16 08:26 11/13/16 08:26 PT 15.2 SECONDS (9.7-12.2) H 11/03/16 08:05 INR 1.3 11/03/16 08:05 APTT 32 SECONDS (21-34) 11/03/16 08:05
[2016-11-14] MEDS: Vancomycin 125 MG/5 ML SOLN (ORAL/RECTAL) PO SCH ×3 (00:05→18:00)
[2016-11-14] MEDS: Albuterol-Ipratrop 3 mg / 0.5 (3 ml) UD INH SCH ×4 (01:22→20:56)
[2016-11-14] MEDS: (Novolog) Insulin Aspart, Recombinant 100 u/ml 10 ml vial SC SCH ×4 (07:30→22:50)
[2016-11-14 08:18] LABS: BASO % 0.4 % (0.0-2.0); EOS # 0.1 K/uL (0.0-0.7); HEMATOCRIT 24.4 % (35.0-51.0); LYMPH # 1.6 K/uL (1.0-4.3); LYMPH % 21.9 % (20.0-40.0); MEAN CELL VOLUME 82.4 fL (80.0-94.0); MEAN CORPUSCULAR HEMOGLOBIN 27.1 pg (27.0-31.0); MEAN CORPUSCULAR HGB CONC 32.9 g/dL (33.0-37.0); MEAN PLATELET VOLUME 8.3 fL (7.2-11.7); MONO # 0.8 K/uL (0.0-0.8); MONO % 11.3 % (0.0-10.0); RED CELL DISTRIBUTION WIDTH 15.3 % (11.5-14.5); WHITE BLOOD COUNT 7.1 K/uL (4.8-10.8)
--- NOTE | 2016-11-14 08:34 | RAD ---
HISTORY: right chest tubes COMPARISON: 11/13/2016 FINDINGS: LUNGS: Increased density at the right base with probable compressive atelectasis/infiltrate. Right chest tubes in place. No significant interval change. PLEURA: Cannot exclude effusion at the right base. CARDIOVASCULAR: Normal. OSSEOUS STRUCTURES: No significant abnormalities. VISUALIZED UPPER ABDOMEN: Normal. OTHER FINDINGS: None. IMPRESSION: Increased density at the right base with probable compressive atelectasis/infiltrate. Right chest tubes in place. No significant interval change.
[2016-11-14 08:52] LABS: CHLORIDE 92 mmol/L (98-107); POTASSIUM 3.7 mmol/L (3.6-5.2); SODIUM 131 mmol/L (132-148)
[2016-11-14 08:54] LABS: AST/SGOT 30 U/L (17-59); BILIRUBIN,TOTAL 0.9 mg/dL (0.2-1.3); GFR AFRICAN-AMERICAN > 60
[2016-11-14 08:55] LABS: ALB/GLOB RATIO 0.6 (1.0-2.1); ALKALINE PHOSPHATASE 87 U/L (38-126); ALT/SGPT 19 U/L (21-72); BLOOD UREA NITROGEN 10 mg/dL (9-20); CALCIUM 7.4 mg/dl (8.6-10.4); CARBON DIOXIDE 29 mmol/L (22-30); GLUCOSE,RANDOM 118 mg/dL (75-110); TOTAL PROTEIN 7.2 g/dL (6.3-8.3)
[2016-11-14] MEDS ORDERED: Lidocaine 2% Inj (20ml) ONE (09:28)
[2016-11-14] MEDS ORDERED: Iohexol 350mgl/ml 50 ML ONE (09:42)
--- NOTE | 2016-11-14 09:51 | PCM.SURG1 ---
Surgeon's Initial Post Op Note - Surgeon's Notes Surgeon: Wilson Baron MD Continuous Wave Operator: NONE Type of Anesthesia: Local Pre-Operative Diagnosis: Poor venous access Operative Findings: Patent left brachial vein. Post-Operative Diagnosis: Poor venous access Operation Performed: Single lumen picc placement left brachial vein. 35 cm. Tip of picc in SVC. Specimen/Specimens Removed: None Estimated Blood Loss: EBL {In ML}: 2 Blood Products Given: N/A Drains Used: No Drains Post-Op Condition: Fair Date of Surgery/Procedure: 11/14/16 Time of Surgery/Procedure: 09:45
--- NOTE | 2016-11-14 10:20 | CP.PCM.PN ---
<Zay Prado - Last Filed: 11/14/16 16:26> Subjective - Date & Time of Evaluation Date of Evaluation: 11/14/16 Time of Evaluation: 07:50 - Subjective Subjective: Cardiology Progress Note Dr. Lin Patient seen and examined at the bedside. No acute distress. No acute events overnight. Patient is POD #10 s/p thoracotomy with Dr. Villagomez. SOB improving. No interval change from prior exams. The patient is resting comfortably in the bed, receiving breathing treatment at time of exam. Some chest tenderness and sensation of abnormal mass when taking deep breaths (at site of chest tube). He denies all other complaints this morning. 12 point review of systems was completed and negative except for the above, stated complaints. Objective - Vital Signs/Intake and Output Vital Signs (last 24 hours): Temp Pulse Resp BP Pulse Ox 98.6 F 106 H 20 125/76 97 11/14/16 08:30 11/14/16 08:30 11/14/16 08:30 11/14/16 08:30 11/14/16 08:30 Intake and Output: 11/14/16 11/14/16 06:59 18:59 Intake Total 250 Output Total 10 10 Balance -10 240 - Medications Medications: Current Medications Albuterol/Ipratropium (Duoneb 3 Mg/0.5 Mg (3 Ml) Ud) 3 ml INH RQ6 [facility] Last Admin: 11/14/16 07:39 Dose: 3 ml Docusate Sodium (Colace) 100 mg PO BID [facility] Last Admin: 11/13/16 17:49 Dose: Not Given Famotidine (Pepcid) 20 mg PO DAILY [facility] Last Admin: 11/13/16 09:02 Dose: 20 mg Glipizide (Glucotrol) 2.5 mg PO DAILY [facility] Last Admin: 11/13/16 09:03 Dose: 2.5 mg Imipenem/Cilastatin Sodium 1, (000 mg/ Sodium Chloride) 250 mls @ 250 mls/hr IVPB Q8H [facility] Last Admin: 11/14/16 00:05 Dose: 250 mls/hr Insulin Aspart (Novolog) 0 unit SC ACHS [facility] PRN Reason: Protocol Last Admin: 11/13/16 21:48 Dose: 2 unit Insulin Detemir (Levemir) 40 unit SC Q12 [facility] Last Admin: 11/13/16 21:48 Dose: 40 unit Lisinopril (Zestril) 20 mg PO DAILY [facility] Last Admin: 11/13/16 09:02 Dose: 20 mg Metoprolol Tartrate (Lopressor) 50 mg PO Q12H [facility] Last Admin: 11/13/16 20:35 Dose: 50 mg Morphine Sulfate (Morphine) 4 mg IVP Q4 PRN PRN Reason: Pain, moderate (4-7) Last Admin: 11/14/16 06:30 Dose: 4 mg Promethazine HCl/Codeine (Phenergan/Codeine Oral Syrup) 5 ml PO Q4 PRN PRN Reason: Cough Last Admin: 11/13/16 09:05 Dose: 5 ml Saccharomyces Boulardii (Florastor) 500 mg PO BID [facility] Last Admin: 11/13/16 17:47 Dose: 500 mg Vancomycin HCl (Vancocin (Oral Or Rectal Use)) 125 mg PO Q6 [facility] Last Admin: 11/14/16 00:05 Dose: 125 mg - Labs Labs: 11/14/16 08:07 11/14/16 08:07 PT 15.2 SECONDS (9.7-12.2) H 11/03/16 08:05 INR 1.3 11/03/16 08:05 APTT 32 SECONDS (21-34) 11/03/16 08:05 - Constitutional Appears: Well, Non-toxic, No Acute Distress - Head Exam Head Exam: ATRAUMATIC, NORMAL INSPECTION, NORMOCEPHALIC - Eye Exam Eye Exam: EOMI, Normal appearance. absent: Conjunctival injection, Scleral icterus Pupil Exam: absent: Irregular, Unequal - ENT Exam ENT Exam: Mucous Membranes Moist - Neck Exam Neck Exam: Full ROM. absent: Tenderness - Respiratory Exam Respiratory Exam: Chest Wall Tenderness (at and adjacent to site of chest tube) , Decreased Breath Sounds (mild decreased breath sounds R>L), Clear to Ausculation Bilateral, NORMAL BREATHING PATTERN. absent: Accessory Muscle Use, Rales, Rhonchi, Wheezes - Cardiovascular Exam Cardiovascular Exam: REGULAR RHYTHM, RRR, +S1, +S2. absent: Bradycardia, Tachycardia - GI/Abdominal Exam GI & Abdominal Exam: Soft, Normal Bowel Sounds. absent: Distended, Firm, Rigid , Tenderness, Diminished Bowel Sounds, Hypoactive Bowel Sounds - Rectal Exam Rectal Exam: Deferred - Extremities Exam Extremities Exam: Full ROM, Normal Capillary Refill, Pedal Edema (+2 in RLE pitting, +1 pitting in LLE (but was keeping LLE up on bed prior to exam with RLE dangling off bed)), Tenderness (tenderness in bilateral feet, pressure sensation). absent: Calf Tenderness, Joint Swelling, Normal Inspection - Neurological Exam Neurological Exam: Alert, Awake, CN II-XII Intact, Oriented x3 - Psychiatric Exam Psychiatric exam: Anxious, Normal Affect - Skin Skin Exam: Dry, Intact, Normal Color, Warm Assessment and Plan (1) Tachycardia Assessment & Plan: -cardiac stable at this point -will continue to monitor -Lopressor 50mg PO q12 -Troponin negative x 2 (<0.0120 x 2) -CK-MB negative x 2 (1.00 > 0.63) -BNP 102 (normal) 11/04/16 ELG- sinus tachycardia, physiologic axis, normal AR interval, normal QRS duration, prolonged QTc, poor R wave progression, no ST or T wave abnormalities 11/02/16 EKG- sinus tachycardia, right axis deviation, normal AR interval, normal QRS duration, prolonged QTc, nonspecific ST/T wave abnormality 11/03/15 Echo- EF 53%, normal diastolic filling pressures Status: Resolved (2) Bilateral lower extremity edema Assessment & Plan: -Continue Lasix 20mg IVP q12 -José hose stockings -Encourage patient to keep legs elevated and not flat or dangling off of bed when lying down Status: Resolved (3) Pre-procedural cardiovascular examination Assessment & Plan: -Cardiac Risk Assessment- Low Risk (POD #10 s/p VATS) - Detsky Score 10: Class I - Low Risk - Jenkins Score 3: Class I - Low Risk - Tunde Score 2- Moderate Risk Case discussed with Dr. Lin Status: Resolved <Saravanan Lin - Last Filed: 12/29/16 09:24> Objective - Vital Signs/Intake and Output Vital Signs (last 24 hours): Temp Pulse Resp BP Pulse Ox 97.7 F 82 18 120/83 95 11/30/16 08:06 11/30/16 08:06 11/30/16 08:06 11/30/16 08:06 11/30/16 08:06 - Labs Labs: 11/29/16 07:08 11/29/16 07:08 PT 14.4 SECONDS (9.7-12.2) H 11/29/16 07:08 INR 1.3 11/29/16 07:08 APTT 35 SECONDS (21-34) H 11/29/16 07:08 Assessment and Plan (1) HTN (hypertension) Status: Chronic (2) Tachycardia Status: Resolved Attending/Attestation - Attestation I have personally seen and examined this patient.: Yes I have fully participated in the care of the patient.: Yes I have reviewed all pertinent clinical information, including history, physical exam and plan: Yes Notes (Text): 12/29/16 09:23 Pt slightly tachycardic continue gentle diuresis with lasix less edema
[2016-11-14] MEDS: Saccharomyces Boulardi 250 mg Cap PO SCH ×2 (11:00→18:00)
[2016-11-14] MEDS: Insulin Detemir 100 units/ml Vial (Levemir) SC SCH ×2 (11:00→22:49)
[2016-11-14] MEDS: GlipiZIDE 2.5 mg Tab PO SCH (11:00)
[2016-11-14 11:26] LABS: IGG,SERUM 2148 mg/dL (694-1618); IGM,SERUM 52 mg/dL (48-271)
--- NOTE | 2016-11-14 11:48 | SPECPROC ---
PROCEDURE: Date of procedure: 11/14/2016 Procedure: 1. Placement of a left arm PICC with ultrasound and fluoroscopic guidance, CPT 89536 2. PICC tip confirmation with spot radiograph and is in the superior vena cava Medications: 4cc 1 percent lidocaine History Bacteremia requiring long-term IV antibiotics TECHNIQUE: Following informed consent and procedure time-out, the patient placed supine on the interventional table and the left arm prepped and draped in the usual sterile fashion. Ultrasound showed a patent and compressible left brachial vein. After the skin was anesthetized with lidocaine, the basilic vein was accessed with micro micropuncture technique using ultrasound guidance. A guidewire was then advanced under fluoroscopic guidance into the superior vena cava. An image documenting ultrasound guidance for vascular access was permanently saved. The length of a single-lumen 5 [place] PICC was trimmed to 35 cm and advanced through a peel-away sheath. The PICC was position with tip of PICC confirm a spot radiograph the superior vena cava. The PICC was secured to the patient's skin. The PICC was flushed. A biopatch and sterile dressing was applied. IMPRESSION: Placement of a single-lumen 5 [place] PICC left brachial vein trimmed to 35 cm. The tip of the PICC is confirmed with spot radiograph and is in the superior vena cava.
--- NOTE | 2016-11-14 14:28 | CP.PCM.PN ---
Subjective - Date & Time of Evaluation Date of Evaluation: 11/14/16 Time of Evaluation: 14:25 - Subjective Subjective: Pt s/e. Afebrile. WBC-7k hct-25. cxr-no pnurmo right lower lobe consolidation. chest tubes-No air leak, 10cc/0/serosanguinus. a/p: will d/c ant chest tube tomorrow. ct after removal of tube. plan d/w . Objective - Vital Signs/Intake and Output Vital Signs (last 24 hours): Temp Pulse Resp BP Pulse Ox 98.6 F 106 H 20 125/76 97 11/14/16 08:30 11/14/16 08:30 11/14/16 08:30 11/14/16 08:30 11/14/16 08:30 Intake and Output: 11/14/16 11/14/16 06:59 18:59 Intake Total 250 Output Total 10 10 Balance -10 240 - Medications Medications: Current Medications Albuterol/Ipratropium (Duoneb 3 Mg/0.5 Mg (3 Ml) Ud) 3 ml INH RQ6 [facility] Last Admin: 11/14/16 13:48 Dose: 3 ml Famotidine (Pepcid) 20 mg PO DAILY [facility] Last Admin: 11/14/16 11:00 Dose: 20 mg Glipizide (Glucotrol) 2.5 mg PO DAILY [facility] Last Admin: 11/14/16 11:00 Dose: 2.5 mg Imipenem/Cilastatin Sodium 1, (000 mg/ Sodium Chloride) 250 mls @ 250 mls/hr IVPB Q8H [facility] Last Admin: 11/14/16 08:00 Dose: 250 mls/hr Insulin Aspart (Novolog) 0 unit SC ACHS [facility] PRN Reason: Protocol Last Admin: 11/14/16 12:00 Dose: 6 unit Insulin Detemir (Levemir) 40 unit SC Q12 [facility] Last Admin: 11/14/16 11:00 Dose: 40 unit Lisinopril (Zestril) 20 mg PO DAILY [facility] Last Admin: 11/14/16 11:24 Dose: 20 mg Metoprolol Tartrate (Lopressor) 50 mg PO Q12H [facility] Last Admin: 11/14/16 09:00 Dose: 50 mg Morphine Sulfate (Morphine) 4 mg IVP Q4 PRN PRN Reason: Pain, moderate (4-7) Last Admin: 11/14/16 12:20 Dose: 4 mg Promethazine HCl/Codeine (Phenergan/Codeine Oral Syrup) 5 ml PO Q4 PRN PRN Reason: Cough Last Admin: 11/13/16 09:05 Dose: 5 ml Saccharomyces Boulardii (Florastor) 500 mg PO BID [facility] Last Admin: 11/14/16 11:00 Dose: 500 mg Vancomycin HCl (Vancocin (Oral Or Rectal Use)) 125 mg PO Q6 [facility] Last Admin: 11/14/16 11:33 Dose: 125 mg - Labs Labs: 11/14/16 08:07 11/14/16 08:07 PT 15.2 SECONDS (9.7-12.2) H 11/03/16 08:05 INR 1.3 11/03/16 08:05 APTT 32 SECONDS (21-34) 11/03/16 08:05
--- NOTE | 2016-11-14 17:13 | CP.PCM.PN ---
Subjective - Date & Time of Evaluation Date of Evaluation: 11/14/16 Time of Evaluation: 17:10 - Subjective Subjective: INFECTIOUS DISEASE PROGRESS NOTE MARIA DIAZ MD, FACP 6T 671-B 11/14/2016 CHART REVIEWED PT EXAMINED CASE DISCUSSED NEWLY DX C DIFF YESTERDAY. NOW ON PO VANCOMYCIN CLINICALLY AND APPEARS TO BE RESPONDING. OFF VIBATIV(TELAVANCIN) THIS PAST WEEKEND. CARDIOVASCULAR SX NOTES REVIEWED. DISCUSSED RECENTLY WITH DR SUE.WILL NEED REPEAT CT. Objective - Vital Signs/Intake and Output Vital Signs (last 24 hours): Temp Pulse Resp BP Pulse Ox 99 F 98 H 20 144/88 95 11/14/16 16:00 11/14/16 16:00 11/14/16 16:00 11/14/16 16:00 11/14/16 16:00 Intake and Output: 11/14/16 11/14/16 06:59 18:59 Intake Total 250 Output Total 10 10 Balance -10 240 - Medications Medications: Current Medications Albuterol/Ipratropium (Duoneb 3 Mg/0.5 Mg (3 Ml) Ud) 3 ml INH RQ6 [facility] Last Admin: 11/14/16 13:48 Dose: 3 ml Famotidine (Pepcid) 20 mg PO DAILY [facility] Last Admin: 11/14/16 11:00 Dose: 20 mg Glipizide (Glucotrol) 2.5 mg PO DAILY [facility] Last Admin: 11/14/16 11:00 Dose: 2.5 mg Imipenem/Cilastatin Sodium 1, (000 mg/ Sodium Chloride) 250 mls @ 250 mls/hr IVPB Q8H [facility] Last Admin: 11/14/16 08:00 Dose: 250 mls/hr Insulin Aspart (Novolog) 0 unit SC ACHS [facility] PRN Reason: Protocol Last Admin: 11/14/16 12:00 Dose: 6 unit Insulin Detemir (Levemir) 40 unit SC Q12 [facility] Last Admin: 11/14/16 11:00 Dose: 40 unit Lisinopril (Zestril) 20 mg PO DAILY [facility] Last Admin: 11/14/16 11:24 Dose: 20 mg Metoprolol Tartrate (Lopressor) 50 mg PO Q12H [facility] Last Admin: 11/14/16 09:00 Dose: 50 mg Morphine Sulfate (Morphine) 4 mg IVP Q4 PRN PRN Reason: Pain, moderate (4-7) Last Admin: 11/14/16 12:20 Dose: 4 mg Promethazine HCl/Codeine (Phenergan/Codeine Oral Syrup) 5 ml PO Q4 PRN PRN Reason: Cough Last Admin: 11/13/16 09:05 Dose: 5 ml Saccharomyces Boulardii (Florastor) 500 mg PO BID [facility] Last Admin: 11/14/16 11:00 Dose: 500 mg Vancomycin HCl (Vancocin (Oral Or Rectal Use)) 125 mg PO Q6 [facility] Last Admin: 11/14/16 11:33 Dose: 125 mg - Labs Labs: 11/14/16 08:07 11/14/16 08:07 PT 15.2 SECONDS (9.7-12.2) H 11/03/16 08:05 INR 1.3 11/03/16 08:05 APTT 32 SECONDS (21-34) 11/03/16 08:05 - Constitutional Appears: Non-toxic, No Acute Distress - Head Exam Head Exam: ATRAUMATIC, NORMAL INSPECTION - Eye Exam Eye Exam: Normal appearance - ENT Exam ENT Exam: Mucous Membranes Moist - Respiratory Exam Respiratory Exam: Decreased Breath Sounds, NORMAL BREATHING PATTERN - Cardiovascular Exam Cardiovascular Exam: REGULAR RHYTHM - GI/Abdominal Exam GI & Abdominal Exam: Soft, Normal Bowel Sounds. absent: Tenderness - Rectal Exam Rectal Exam: Deferred - Neurological Exam Neurological Exam: Alert, Awake - Psychiatric Exam Psychiatric exam: Anxious Assessment and Plan (1) Empyema Status: Acute (2) Pneumonia Status: Acute (3) Pleural effusion on right Status: Acute (4) Bilateral lower extremity edema Status: Resolved (5) Anemia Status: Chronic (6) Hyperglycemia Status: Acute (7) HTN (hypertension) Status: Chronic (8) Diarrhea Status: Acute
--- NOTE | 2016-11-14 21:24 | VASCLAB ---
PROCEDURE: Right Lower Extremity Venous Duplex Exam. HISTORY: venous edema PRIORS: 11/09/2016. TECHNIQUE: Right common femoral, femoral, popliteal and posterior tibial, peroneal and great saphenous veins were evaluated. Flow was assessed with color Doppler, compressibility, assessment of phasic flow and augmentation response. Report prepared by DELBERT Villa, RVT FINDINGS: RIGHT: 1. Common Femoral Vein: 1.1. Compressibility - Fully compressible: Thrombus - None: Flow - Phasic: Augmentation -Normal: Reflux - None. 2. Femoral Vein: 2.1. Compressibility - Fully compressible: Thrombus - None: Flow - Phasic: Augmentation -Normal: Reflux - None. 3. Popliteal Vein: 3.1. Compressibility - Fully compressible: Thrombus - None: Flow - Phasic: Augmentation -Normal: Reflux - None. 4. Posterior Tibial Vein: 4.1. Compressibility - Fully compressible: Thrombus - None: Flow - Phasic: Augmentation -Normal: Reflux - None. 5. Peroneal Vein: 5.1. Compressibility - Fully compressible: Thrombus - None: Flow - Phasic: Augmentation -Normal: Reflux - None. 6. Great Saphenous Vein: 6.1. Compressibility - Fully compressible: Thrombus -None: Flow - Phasic: Augmentation - Normal: Reflux - None. OTHER FINDINGS: IMPRESSION: No evidence of deep or superficial vein thrombosis of the right lower extremity with excellent venous flow. Normal valve function noted of the right side. Normal venous flow noted in the left common femoral vein.
--- NOTE | 2016-11-14 23:34 | PN ---
DATE: 11/14/2016 Seen by me around 1:30 a.m. The patient is currently more comfortable than yesterday, but he still continues to have diarrhea. Episodes of diarrhea noted and the stool is positive for Clostridium difficile colitis. The patient is having no abdominal distention, nausea or vomiting. Denied any chest pain. Right-sided pain upon taking a deep breath noted, but the inspiratory effort is better. The drainage of the tube is less. I spoke to the cardiothoracic surgeon, who said that the patient is improving at this time. Probably will remove 1 tube tomorrow, repeat the CAT scan in the morning, but he is concerned that the tissue culture was showing coagulase negative, probably a true infection, which needs to be monitored also. Will speak to infectious disease and will continue to monitor the current status. We will follow up the patient. Brando Hernandez MD cc: [id number] TT: 11/14/2016 23:33:58 Confirmation # [id number] Dictation # [id number] ln MTDD
[2016-11-15] MEDS: Albuterol-Ipratrop 3 mg / 0.5 (3 ml) UD INH SCH ×4 (01:13→19:23)
[2016-11-15] MEDS: Vancomycin 125 MG/5 ML SOLN (ORAL/RECTAL) PO SCH ×4 (01:34→17:48)
[2016-11-15 07:20] LABS: BASO % 0.4 % (0.0-2.0); EOS # 0.1 K/uL (0.0-0.7); HEMATOCRIT 23.2 % (35.0-51.0); LYMPH # 1.4 K/uL (1.0-4.3); LYMPH % 21.3 % (20.0-40.0); MEAN CELL VOLUME 82.3 fL (80.0-94.0); MEAN CORPUSCULAR HEMOGLOBIN 26.6 pg (27.0-31.0); MEAN CORPUSCULAR HGB CONC 32.4 g/dL (33.0-37.0); MEAN PLATELET VOLUME 8.4 fL (7.2-11.7); MONO # 0.8 K/uL (0.0-0.8); MONO % 12.1 % (0.0-10.0); NRBC % 0.1 % (0.0-2.0); RED CELL DISTRIBUTION WIDTH 14.9 % (11.5-14.5); WHITE BLOOD COUNT 6.5 K/uL (4.8-10.8)
[2016-11-15] MEDS: (Novolog) Insulin Aspart, Recombinant 100 u/ml 10 ml vial SC SCH ×4 (07:30→22:00)
[2016-11-15 08:27] LABS: CHLORIDE 93 mmol/L (98-107)
[2016-11-15 08:28] LABS: POTASSIUM 3.8 mmol/L (3.6-5.2); SODIUM 131 mmol/L (132-148)
[2016-11-15 08:30] LABS: ALB/GLOB RATIO 0.6 (1.0-2.1); AST/SGOT 22 U/L (17-59); BILIRUBIN,TOTAL 0.8 mg/dL (0.2-1.3); BLOOD UREA NITROGEN 10 mg/dL (9-20); CARBON DIOXIDE 30 mmol/L (22-30); GFR AFRICAN-AMERICAN > 60; TOTAL PROTEIN 6.7 g/dL (6.3-8.3)
[2016-11-15 08:31] LABS: ALKALINE PHOSPHATASE 75 U/L (38-126); ALT/SGPT 21 U/L (21-72); CALCIUM 7.6 mg/dl (8.6-10.4); GLUCOSE,RANDOM 99 mg/dL (75-110)
--- NOTE | 2016-11-15 09:31 | RAD ---
HISTORY: right chest tubes COMPARISON: 11/14/2016 FINDINGS: LUNGS: Lines and tubes in stable position. Persistent moderate loculated right-sided pleural effusion with consolidative changes in the right mid to lower lung zone. Additional right paratracheal airspace opacity. Volume loss in the right radha thorax. PLEURA: As above CARDIOVASCULAR: Normal. OSSEOUS STRUCTURES: No significant abnormalities. VISUALIZED UPPER ABDOMEN: Grossly preserved. OTHER FINDINGS: None. IMPRESSION: No significant interval change.
--- NOTE | 2016-11-15 10:15 | CP.PCM.PN ---
<Zay Prado - Last Filed: 11/15/16 10:11> Subjective - Date & Time of Evaluation Date of Evaluation: 11/15/16 Time of Evaluation: 07:45 - Subjective Subjective: Cardiology Progress Note Dr. Lin Patient seen and examined at the bedside. No acute distress. Overnight, his PICC line (placed by IR yesterday) came out while sleeping. Nursing does not report any additional issues. Patient is POD #11 s/p thoracotomy with Dr. Villagomez. Denies SOB today, and denies SOB/Lightheadedness/Dizziness while walking with PT yesterday. No interval change from prior exams. The patient is resting comfortably in the bed, eating breakfast. Some chest tenderness and sensation of abnormal mass when taking deep breaths (at site of chest tube), unchanged from yesterday. He denies all other complaints this morning. 12 point review of systems was completed and negative except for the above, stated complaints. Objective - Vital Signs/Intake and Output Vital Signs (last 24 hours): Temp Pulse Resp BP Pulse Ox 98.8 F 85 20 144/81 96 11/15/16 09:31 11/15/16 09:31 11/15/16 09:31 11/15/16 00:10 11/15/16 09:31 Intake and Output: 11/15/16 11/15/16 06:59 18:59 Intake Total 250 580 Output Total 0 10 Balance 250 570 - Medications Medications: Current Medications Albuterol/Ipratropium (Duoneb 3 Mg/0.5 Mg (3 Ml) Ud) 3 ml INH RQ6 [facility] Last Admin: 11/15/16 08:22 Dose: 3 ml Famotidine (Pepcid) 20 mg PO DAILY [facility] Last Admin: 11/14/16 11:00 Dose: 20 mg Glipizide (Glucotrol) 2.5 mg PO DAILY [facility] Last Admin: 11/14/16 11:00 Dose: 2.5 mg Imipenem/Cilastatin Sodium 1, (000 mg/ Sodium Chloride) 250 mls @ 250 mls/hr IVPB Q8H [facility] Last Admin: 11/15/16 01:33 Dose: 250 mls/hr Insulin Aspart (Novolog) 0 unit SC ACHS [facility] PRN Reason: Protocol Last Admin: 11/14/16 22:50 Dose: Not Given Insulin Detemir (Levemir) 40 unit SC Q12 [facility] Last Admin: 11/14/16 22:49 Dose: 40 unit Lisinopril (Zestril) 20 mg PO DAILY [facility] Last Admin: 11/14/16 11:24 Dose: 20 mg Metoprolol Tartrate (Lopressor) 50 mg PO Q12H [facility] Last Admin: 11/14/16 22:00 Dose: 50 mg Morphine Sulfate (Morphine) 4 mg IVP Q4 PRN PRN Reason: Pain, moderate (4-7) Last Admin: 11/15/16 09:52 Dose: 4 mg Promethazine HCl/Codeine (Phenergan/Codeine Oral Syrup) 5 ml PO Q4 PRN PRN Reason: Cough Last Admin: 11/13/16 09:05 Dose: 5 ml Saccharomyces Boulardii (Florastor) 500 mg PO BID [facility] Last Admin: 11/14/16 18:00 Dose: 500 mg Vancomycin HCl (Vancocin (Oral Or Rectal Use)) 125 mg PO Q6 [facility] Last Admin: 11/15/16 05:42 Dose: 125 mg - Labs Labs: 11/15/16 07:12 11/15/16 07:12 PT 15.2 SECONDS (9.7-12.2) H 11/03/16 08:05 INR 1.3 11/03/16 08:05 APTT 32 SECONDS (21-34) 11/03/16 08:05 - Additional Findings Additional findings: - Constitutional Appears: Well, Non-toxic, No Acute Distress, Resting Comfortably in Bed - Head Exam Head Exam: ATRAUMATIC, NORMAL INSPECTION, NORMOCEPHALIC - Eye Exam Eye Exam: EOMI, Normal appearance. absent: Conjunctival injection, Scleral icterus Pupil Exam: absent: Irregular, Unequal - ENT Exam ENT Exam: Mucous Membranes Moist - Neck Exam Neck Exam: Full ROM. absent: Tenderness - Respiratory Exam Respiratory Exam: Chest Wall Tenderness (at and adjacent to site of chest tube) , Decreased Breath Sounds (mild decreased breath sounds R>L), Clear to Ausculation Bilateral, NORMAL BREATHING PATTERN. absent: Accessory Muscle Use, Rales, Rhonchi, Wheezes - Cardiovascular Exam Cardiovascular Exam: REGULAR RHYTHM, RRR, +S1, +S2. absent: Bradycardia, Tachycardia - GI/Abdominal Exam GI & Abdominal Exam: Soft, Normal Bowel Sounds. absent: Distended, Firm, Rigid , Tenderness, Diminished Bowel Sounds, Hypoactive Bowel Sounds - Extremities Exam Extremities Exam: Full ROM, Normal Capillary Refill, Pedal Edema (+1 pitting edema in bilateral LE, extending up to mid moore, wearing compression stockings) , Tenderness (tenderness in bilateral feet, pressure sensation). absent: Calf Tenderness, Joint Swelling, Normal Inspection - Neurological Exam Neurological Exam: Alert, Awake, CN II-XII Intact, Oriented x3 - Psychiatric Exam Psychiatric exam: Normal Mood, Normal Affect - Skin Skin Exam: Dry, Intact, Normal Color, Warm Assessment and Plan (1) Tachycardia Assessment & Plan: 11/04/16 ELG- sinus tachycardia, physiologic axis, normal SC interval, normal QRS duration, prolonged QTc, poor R wave progression, no ST or T wave abnormalities 11/02/16 EKG- sinus tachycardia, right axis deviation, normal SC interval, normal QRS duration, prolonged QTc, nonspecific ST/T wave abnormality 11/03/15 Echo- EF 53%, normal diastolic filling pressures Troponin negative x 2 (<0.0120 x 2) CK-MB negative x 2 (1.00 > 0.63) BNP 102 (normal) -cardiac stable at this point -will continue to monitor -continue Lopressor 50mg PO q12 Status: Resolved (2) Bilateral lower extremity edema Assessment & Plan: -Continue Lasix 20mg IVP q12 -José hose stockings, ambulating with PT as tolerated -Encourage patient to keep legs elevated and not flat or dangling off of bed when lying down Status: Resolved (3) Pre-procedural cardiovascular examination Assessment & Plan: -Cardiac Risk Assessment- Low Risk (POD #10 s/p VATS) - Detsky Score 10: Class I - Low Risk - Jenkins Score 3: Class I - Low Risk - Tunde Score 2- Moderate Risk Case discussed with Dr. Lin Status: Resolved <Saravanan Lin - Last Filed: 12/29/16 09:25> Objective - Vital Signs/Intake and Output Vital Signs (last 24 hours): Temp Pulse Resp BP Pulse Ox 97.7 F 82 18 120/83 95 11/30/16 08:06 11/30/16 08:06 11/30/16 08:06 11/30/16 08:06 11/30/16 08:06 - Labs Labs: 11/29/16 07:08 11/29/16 07:08 PT 14.4 SECONDS (9.7-12.2) H 11/29/16 07:08 INR 1.3 11/29/16 07:08 APTT 35 SECONDS (21-34) H 11/29/16 07:08 Assessment and Plan (1) HTN (hypertension) Status: Chronic (2) Tachycardia Status: Resolved Attending/Attestation - Attestation I have personally seen and examined this patient.: Yes I have fully participated in the care of the patient.: Yes I have reviewed all pertinent clinical information, including history, physical exam and plan: Yes Notes (Text): 12/29/16 09:24 pt PICC came out yesterdy will need re implant hr stable
[2016-11-15] MEDS: GlipiZIDE 2.5 mg Tab PO SCH (10:52)
[2016-11-15] MEDS: Saccharomyces Boulardi 250 mg Cap PO SCH ×2 (10:53→17:48)
[2016-11-15] MEDS: Insulin Detemir 100 units/ml Vial (Levemir) SC SCH ×2 (10:54→22:12)
--- NOTE | 2016-11-15 12:17 | CP.PCM.PN ---
Subjective - Date & Time of Evaluation Date of Evaluation: 11/15/16 Time of Evaluation: 12:13 - Subjective Subjective: Pt s/e. hct 23. cxr: No pneumo. chest tubes: No air leak. No draingage from ant., and post. tube-10cc/y a/p; d/c ant chest tube today. stat ct of chest after chest tube removal. consider d/c post tube tomorrow. Objective - Vital Signs/Intake and Output Vital Signs (last 24 hours): Temp Pulse Resp BP Pulse Ox 98.8 F 85 20 144/81 96 11/15/16 09:31 11/15/16 09:31 11/15/16 09:31 11/15/16 00:10 11/15/16 09:31 Intake and Output: 11/15/16 11/15/16 06:59 18:59 Intake Total 250 580 Output Total 0 10 Balance 250 570 - Medications Medications: Current Medications Albuterol/Ipratropium (Duoneb 3 Mg/0.5 Mg (3 Ml) Ud) 3 ml INH RQ6 [facility] Last Admin: 11/15/16 08:22 Dose: 3 ml Famotidine (Pepcid) 20 mg PO DAILY [facility] Last Admin: 11/15/16 10:53 Dose: 20 mg Glipizide (Glucotrol) 2.5 mg PO DAILY [facility] Last Admin: 11/15/16 10:52 Dose: 2.5 mg Imipenem/Cilastatin Sodium 1, (000 mg/ Sodium Chloride) 250 mls @ 250 mls/hr IVPB Q8H [facility] Last Admin: 11/15/16 08:00 Dose: 250 mls/hr Insulin Aspart (Novolog) 0 unit SC ACHS [facility] PRN Reason: Protocol Last Admin: 11/15/16 07:30 Dose: Not Given Insulin Detemir (Levemir) 40 unit SC Q12 [facility] Last Admin: 11/15/16 10:54 Dose: 40 unit Lisinopril (Zestril) 20 mg PO DAILY [facility] Last Admin: 11/15/16 10:56 Dose: 20 mg Metoprolol Tartrate (Lopressor) 50 mg PO Q12H [facility] Last Admin: 11/15/16 10:53 Dose: 50 mg Morphine Sulfate (Morphine) 4 mg IVP Q4 PRN PRN Reason: Pain, moderate (4-7) Last Admin: 11/15/16 09:52 Dose: 4 mg Promethazine HCl/Codeine (Phenergan/Codeine Oral Syrup) 5 ml PO Q4 PRN PRN Reason: Cough Last Admin: 11/13/16 09:05 Dose: 5 ml Saccharomyces Boulardii (Florastor) 500 mg PO BID [facility] Last Admin: 11/15/16 10:53 Dose: 500 mg Vancomycin HCl (Vancocin (Oral Or Rectal Use)) 125 mg PO Q6 [facility] Last Admin: 11/15/16 05:42 Dose: 125 mg - Labs Labs: 11/15/16 07:12 11/15/16 07:12 PT 15.2 SECONDS (9.7-12.2) H 11/03/16 08:05 INR 1.3 11/03/16 08:05 APTT 32 SECONDS (21-34) 11/03/16 08:05
[2016-11-15] MEDS: Promethazine/Cod 6.25mg-10mg/5ml Syr UD PO PRN (12:40)
--- NOTE | 2016-11-15 15:15 | CT ---
CT chest without IV contrast Indication: s/p 1 Chest tube removal, effusion comparison Technique: Contiguous axial images were obtained through the chest without intravenous contrast enhancement. Sagittal and coronal reconstructions were generated and reviewed. This CT exam was performed using 1 or more of the falling dose reduction techniques: Automated exposure control, adjustment of the MAA and/or kV according to patient size, and/or use of iterative reconstruction technique. Radiation dose (DLP): 960.92 MGy-cm. Comparison: Chest x-ray performed 11/08/16 Findings: Visualized portions of the inferior thyroid gland appear unremarkable. The noncontrast mediastinal and hilar vascular structures appear grossly unremarkable. The heart appears within normal limits of size. Mild mediastinal adenopathy, nonspecific. 1 right-sided chest tube. Right mid and lower lobe consolidation with air bronchograms may represent atelectasis or pneumonia. No significant interval change in appearance of loculated right-sided pleural effusions. There is also small to moderate free right pleural effusion also contains foci of air. Small hiatal hernia. Esophageal wall thickening. Elevation of the right hemidiaphragm. Limited visualization of the noncontrast upper abdomen appears grossly unremarkable. Right chest wall emphysema and soft tissue stranding is seen. Degenerative changes of the spine. Impression: Interval removal of a right-sided chest tube. One chest tube remains. No significant interval change in loculated pleural effusions. The possibility of empyema or infected localized pleural effusions should be considered. The differential diagnosis includes postsurgical seroma versus less likely lung pleural space fistula. Airspace consolidation at the mid and lower portion of the right lung contains air bronchogram may represent atelectasis or pneumonia. Postsurgical changes consistent with the patient's history of partial pleurectomy. Diffuse esophageal mucosal thickening. Mild mid and upper mediastinum lymphadenopathy.
--- NOTE | 2016-11-15 22:30 | PN ---
DATE: 11/15/2016 The patient is sitting up comfortably. Family is at bedside. I spoke to the patient's today. One of the chest tubes was removed by the thoracic surgeon today. After that, the patient underwent a CAT scan of the chest, which is showing evidence of some seroma of the chest and also loculated ple ural fluid in the lungs. Some improvement in the lung parenchyma noted, but otherwise still continue s to show evidence of persistent effusion and organization. The patient has no fever. Diarrhea is b danny at this time. PHYSICAL EXAMINATION: VITAL SIGNS: Temperature is 97.7, pulse 105, blood pressure 143/89, respiration is 18, saturation is 98 on room air. Clinical examination unremarkable except minimal wheezing and rales. LABORATORY DATA: Reviewed. His hemoglobin is on the low side of 7.5. Otherwise, rest of the labs a re nonspecific. ASSESSMENT AND PLAN: We will continue to monitor. I spoke to the cardiothoracic surgeon as well as I spoke to infectious disease. The patient is currently on broad-spectrum antibiotic. The patient d efinitely will need possibly another intervention given the hydro-pneumo of loculated pleural fluid. We will speak to interventional radiologist possibly after I discuss with the thoracic surgeon for t he possibility of interventional procedure if possible. Otherwise, we will continue to give the anti biotic and monitor the progression and will follow up the patient. The patient also has C. diff coli tis which is being controlled with the antibiotic at this time. We will follow up the patient. Brando Hernandez MD cc: [id number] TT: 11/15/2016 22:29:45 Confirmation # [id number] Dictation # [id number] berenice
--- NOTE | 2016-11-15 22:49 | CP.PCM.PN ---
Subjective - Date & Time of Evaluation Date of Evaluation: 11/15/16 Time of Evaluation: 22:50 - Subjective Subjective: INFECTIOUS DISEASE PROGRESS NOTE MARIA DIAZ MD, FACP 6T 671-B 11/15/2016 CHART REVIEWED PT EXAMINED CASE DISCUSSED REPEAT CT APPEARS TO DEMONSTRATE LOCULATIONS ANTERIORLY AND SUPERIORLY. MAY NEED FURTHER SURGICAL OR IR FOR DRAINAGE. PT IS AFEBRILE, NORMAL WBC AND BLOOD SUGARS THAT ARE RESPONDING-FINALLY. C. DIFF RESPONDING TO PO VANCOMYCIN. ON PRIMAXIN, MAY ADD FLAGYL FOR POTENTIAL SYNERGY BUT PENETRATION IN THE LOCULATIONS IS PROBLEMATICAL. Objective - Vital Signs/Intake and Output Vital Signs (last 24 hours): Temp Pulse Resp BP Pulse Ox 97.7 F 105 H 18 143/89 98 11/15/16 15:20 11/15/16 15:20 11/15/16 15:20 11/15/16 15:20 11/15/16 15:20 Intake and Output: 11/15/16 11/16/16 18:59 06:59 Intake Total 580 Output Total 1700 Balance -1120 - Medications Medications: Current Medications Albuterol/Ipratropium (Duoneb 3 Mg/0.5 Mg (3 Ml) Ud) 3 ml INH RQ6 [facility] Last Admin: 11/15/16 19:23 Dose: 3 ml Famotidine (Pepcid) 20 mg PO DAILY [facility] Last Admin: 11/15/16 10:53 Dose: 20 mg Glipizide (Glucotrol) 2.5 mg PO DAILY [facility] Last Admin: 11/15/16 10:52 Dose: 2.5 mg Imipenem/Cilastatin Sodium 1, (000 mg/ Sodium Chloride) 250 mls @ 250 mls/hr IVPB Q8H [facility] Last Admin: 11/15/16 16:07 Dose: 250 mls/hr Insulin Aspart (Novolog) 0 unit SC ACHS [facility] PRN Reason: Protocol Last Admin: 11/15/16 16:30 Dose: Not Given Insulin Detemir (Levemir) 40 unit SC Q12 [facility] Last Admin: 11/15/16 22:12 Dose: 40 unit Lisinopril (Zestril) 20 mg PO DAILY [facility] Last Admin: 11/15/16 10:56 Dose: 20 mg Metoprolol Tartrate (Lopressor) 50 mg PO Q12H [facility] Last Admin: 11/15/16 20:46 Dose: 50 mg Morphine Sulfate (Morphine) 4 mg IVP Q4 PRN PRN Reason: Pain, moderate (4-7) Last Admin: 11/15/16 20:37 Dose: 4 mg Oxycodone/Acetaminophen (Percocet 5/325 Mg Tab) 2 tab PO ONCE ONE Stop: 11/15/16 23:01 Promethazine HCl/Codeine (Phenergan/Codeine Oral Syrup) 5 ml PO Q4 PRN PRN Reason: Cough Last Admin: 11/15/16 12:40 Dose: 5 ml Saccharomyces Boulardii (Florastor) 500 mg PO BID [facility] Last Admin: 11/15/16 17:48 Dose: 500 mg Vancomycin HCl (Vancocin (Oral Or Rectal Use)) 125 mg PO Q6 [facility] Last Admin: 11/15/16 17:48 Dose: 125 mg - Labs Labs: 11/15/16 07:12 11/15/16 07:12 PT 15.2 SECONDS (9.7-12.2) H 11/03/16 08:05 INR 1.3 11/03/16 08:05 APTT 32 SECONDS (21-34) 11/03/16 08:05 - Constitutional Appears: Non-toxic, No Acute Distress - Head Exam Head Exam: NORMAL INSPECTION - Eye Exam Eye Exam: Normal appearance - ENT Exam ENT Exam: Mucous Membranes Moist - Neck Exam Neck Exam: Normal Inspection - Respiratory Exam Respiratory Exam: Decreased Breath Sounds, NORMAL BREATHING PATTERN - Cardiovascular Exam Cardiovascular Exam: REGULAR RHYTHM - GI/Abdominal Exam GI & Abdominal Exam: Soft, Normal Bowel Sounds. absent: Tenderness - Rectal Exam Rectal Exam: Deferred - Extremities Exam Extremities Exam: Full ROM. absent: Tenderness - Back Exam Back Exam: absent: muscle spasm, rash noted - Neurological Exam Neurological Exam: Alert, Awake - Psychiatric Exam Psychiatric exam: Anxious - Skin Skin Exam: Dry, Intact, Warm Assessment and Plan (1) Empyema Status: Acute (2) Pneumonia Status: Acute (3) Pleural effusion on right Assessment & Plan: TO ADD FLAGYL FOR POTENTIAL SYNERGY Status: Acute (4) Bilateral lower extremity edema Status: Resolved (5) Anemia Status: Chronic (6) Hyperglycemia Status: Acute (7) HTN (hypertension) Status: Chronic (8) Diarrhea Assessment & Plan: C DIFF RESPONDING TO PO VANCOMYCIN Status: Acute
[2016-11-15] MEDS ORDERED: Oxycodone/Acetaminophen 5/325 mg Tab PO ONE (23:00)
[2016-11-15] MEDS: metroNIDAZOLE IV 500 mg/100 ml 500 MG/100 ML BAG IVPB SCH (23:50)
[2016-11-16] MEDS: Vancomycin 125 MG/5 ML SOLN (ORAL/RECTAL) PO SCH ×4 (00:55→17:43)
[2016-11-16] MEDS: Albuterol-Ipratrop 3 mg / 0.5 (3 ml) UD INH SCH ×4 (02:41→20:10)
[2016-11-16] MEDS: metroNIDAZOLE IV 500 mg/100 ml 500 MG/100 ML BAG IVPB SCH ×3 (05:24→21:30)
[2016-11-16 07:20] LABS: BASO % 0.4 % (0.0-2.0); EOS # 0.1 K/uL (0.0-0.7); HEMATOCRIT 22.7 % (35.0-51.0); LYMPH # 1.3 K/uL (1.0-4.3); LYMPH % 23.5 % (20.0-40.0); MEAN CELL VOLUME 82.1 fL (80.0-94.0); MEAN CORPUSCULAR HEMOGLOBIN 26.8 pg (27.0-31.0); MEAN CORPUSCULAR HGB CONC 32.7 g/dL (33.0-37.0); MEAN PLATELET VOLUME 8.8 fL (7.2-11.7); MONO # 0.7 K/uL (0.0-0.8); MONO % 12.2 % (0.0-10.0); NRBC % 0.1 % (0.0-2.0); RED CELL DISTRIBUTION WIDTH 15.2 % (11.5-14.5); WHITE BLOOD COUNT 5.7 K/uL (4.8-10.8)
[2016-11-16] MEDS: (Novolog) Insulin Aspart, Recombinant 100 u/ml 10 ml vial SC SCH ×4 (07:30→22:30)
[2016-11-16 07:41] LABS: CHLORIDE 94 mmol/L (98-107); POTASSIUM 3.9 mmol/L (3.6-5.2); SODIUM 132 mmol/L (132-148)
[2016-11-16 07:44] LABS: ALB/GLOB RATIO 0.6 (1.0-2.1); ALKALINE PHOSPHATASE 69 U/L (38-126); ALT/SGPT 21 U/L (21-72); AST/SGOT 16 U/L (17-59); BILIRUBIN,TOTAL 0.8 mg/dL (0.2-1.3); BLOOD UREA NITROGEN 10 mg/dL (9-20); CARBON DIOXIDE 30 mmol/L (22-30); GFR AFRICAN-AMERICAN > 60; GLUCOSE,RANDOM 99 mg/dL (75-110); TOTAL PROTEIN 6.2 g/dL (6.3-8.3)
[2016-11-16 07:45] LABS: CALCIUM 7.5 mg/dl (8.6-10.4)
[2016-11-16] MEDS: GlipiZIDE 2.5 mg Tab PO SCH (10:09)
[2016-11-16] MEDS: Insulin Detemir 100 units/ml Vial (Levemir) SC SCH (10:12)
[2016-11-16] MEDS: Saccharomyces Boulardi 250 mg Cap PO SCH ×2 (10:12→17:43)
--- NOTE | 2016-11-16 10:20 | RAD ---
HISTORY: s/p thoracotomy and chest tube insertion x2 COMPARISON: Chest x-ray performed 11/04/16 TECHNIQUE: Chest, one view. FINDINGS: Examination limited by habitus and hypoinflation. Two right-sided chest tubes. LUNGS: No significant interval change in small to moderate right-sided pleural effusion and patchy airspace opacities involving the right radha thorax. Please note that chest x-ray has limited sensitivity for the detection of pulmonary masses. CARDIOVASCULAR: Cardiomegaly. OSSEOUS STRUCTURES: No acute osseous abnormality identified. VISUALIZED UPPER ABDOMEN: Unremarkable. OTHER FINDINGS: Surgical mehnaz, right lateral chest wall. Subcutaneous emphysema, slightly decreased in extent. IMPRESSION: No significant interval change.
--- NOTE | 2016-11-16 10:57 | CP.PCM.PN ---
Subjective - Date & Time of Evaluation Date of Evaluation: 11/16/16 Time of Evaluation: 10:51 - Subjective Subjective: Pt s/e. In general comfortable, other than surgical site pain. [id number] and afebrile. chest tube-20cc/y no air leak. ct of chest- islands of locuated fluid are getting smaller. About 6cm posterior inferior loculation may have become larger. May need to be drained by IR.( will didcuss with IR). Consolidation improving. will consider d/c chest tube tomorrow. Objective - Vital Signs/Intake and Output Vital Signs (last 24 hours): Temp Pulse Resp BP Pulse Ox 99.0 F 98 H 20 116/74 98 11/16/16 08:41 11/16/16 08:41 11/16/16 08:41 11/16/16 08:41 11/16/16 08:41 Intake and Output: 11/16/16 11/16/16 06:59 18:59 Intake Total 590 Output Total 10 Balance 580 - Medications Medications: Current Medications Albuterol/Ipratropium (Duoneb 3 Mg/0.5 Mg (3 Ml) Ud) 3 ml INH RQ6 [facility] Last Admin: 11/16/16 07:57 Dose: 3 ml Famotidine (Pepcid) 20 mg PO DAILY [facility] Last Admin: 11/16/16 10:10 Dose: 20 mg Glipizide (Glucotrol) 2.5 mg PO DAILY [facility] Last Admin: 11/16/16 10:09 Dose: 2.5 mg Imipenem/Cilastatin Sodium 1, (000 mg/ Sodium Chloride) 250 mls @ 250 mls/hr IVPB Q8H [facility] Last Admin: 11/16/16 00:46 Dose: 250 mls/hr Metronidazole (Flagyl) 500 mg in 100 mls @ 100 mls/hr IVPB Q8 [facility] Last Admin: 11/16/16 05:24 Dose: 100 mls/hr Insulin Aspart (Novolog) 0 unit SC ACHS [facility] PRN Reason: Protocol Last Admin: 11/16/16 07:30 Dose: Not Given Insulin Detemir (Levemir) 40 unit SC Q12 [facility] Last Admin: 11/16/16 10:12 Dose: 40 unit Lisinopril (Zestril) 20 mg PO DAILY [facility] Last Admin: 11/16/16 10:09 Dose: 20 mg Metoprolol Tartrate (Lopressor) 50 mg PO Q12H [facility] Last Admin: 11/16/16 10:09 Dose: 50 mg Morphine Sulfate (Morphine) 4 mg IVP Q4 PRN PRN Reason: Pain, moderate (4-7) Last Admin: 11/16/16 10:01 Dose: 4 mg Promethazine HCl/Codeine (Phenergan/Codeine Oral Syrup) 5 ml PO Q4 PRN PRN Reason: Cough Last Admin: 11/15/16 12:40 Dose: 5 ml Saccharomyces Boulardii (Florastor) 500 mg PO BID [facility] Last Admin: 11/16/16 10:12 Dose: 500 mg Vancomycin HCl (Vancocin (Oral Or Rectal Use)) 125 mg PO Q6 [facility] Last Admin: 11/16/16 05:24 Dose: 125 mg - Labs Labs: 11/16/16 07:05 11/16/16 07:05 PT 15.2 SECONDS (9.7-12.2) H 11/03/16 08:05 INR 1.3 11/03/16 08:05 APTT 32 SECONDS (21-34) 11/03/16 08:05
--- NOTE | 2016-11-16 11:04 | CP.PCM.PN ---
<Zay Prado - Last Filed: 11/16/16 10:57> Subjective - Date & Time of Evaluation Date of Evaluation: 11/16/16 Time of Evaluation: 07:15 - Subjective Subjective: Cardiology Progress Note Dr. Lin Patient seen and examined at the bedside. No acute distress. No overnight issues as per patient and nursing. Anterior chest tube removed yesterday. Patient is POD #12 s/p thoracotomy with Dr. Villagomez. Denies SOB today, and denies SOB/Lightheadedness/Dizziness while walking with PT. No interval change from prior exams. The patient is resting comfortably in the bed, receiving breathing treatment. Some chest tenderness and sensation of abnormal mass when taking deep breaths (at site of remaining chest tube), unchanged from yesterday. He denies all other complaints this morning. 12 point review of systems was completed and negative except for the above, stated complaints. Objective - Vital Signs/Intake and Output Vital Signs (last 24 hours): Temp Pulse Resp BP Pulse Ox 99.0 F 98 H 20 116/74 98 11/16/16 08:41 11/16/16 08:41 11/16/16 08:41 11/16/16 08:41 11/16/16 08:41 Intake and Output: 11/16/16 11/16/16 06:59 18:59 Intake Total 590 Output Total 10 Balance 580 - Medications Medications: Current Medications Albuterol/Ipratropium (Duoneb 3 Mg/0.5 Mg (3 Ml) Ud) 3 ml INH RQ6 [facility] Last Admin: 11/16/16 07:57 Dose: 3 ml Famotidine (Pepcid) 20 mg PO DAILY [facility] Last Admin: 11/16/16 10:10 Dose: 20 mg Glipizide (Glucotrol) 2.5 mg PO DAILY [facility] Last Admin: 11/16/16 10:09 Dose: 2.5 mg Imipenem/Cilastatin Sodium 1, (000 mg/ Sodium Chloride) 250 mls @ 250 mls/hr IVPB Q8H [facility] Last Admin: 11/16/16 00:46 Dose: 250 mls/hr Metronidazole (Flagyl) 500 mg in 100 mls @ 100 mls/hr IVPB Q8 [facility] Last Admin: 11/16/16 05:24 Dose: 100 mls/hr Insulin Aspart (Novolog) 0 unit SC ACHS [facility] PRN Reason: Protocol Last Admin: 11/16/16 07:30 Dose: Not Given Insulin Detemir (Levemir) 40 unit SC Q12 [facility] Last Admin: 11/16/16 10:12 Dose: 40 unit Lisinopril (Zestril) 20 mg PO DAILY [facility] Last Admin: 11/16/16 10:09 Dose: 20 mg Metoprolol Tartrate (Lopressor) 50 mg PO Q12H [facility] Last Admin: 11/16/16 10:09 Dose: 50 mg Morphine Sulfate (Morphine) 4 mg IVP Q4 PRN PRN Reason: Pain, moderate (4-7) Last Admin: 11/16/16 10:01 Dose: 4 mg Promethazine HCl/Codeine (Phenergan/Codeine Oral Syrup) 5 ml PO Q4 PRN PRN Reason: Cough Last Admin: 11/15/16 12:40 Dose: 5 ml Saccharomyces Boulardii (Florastor) 500 mg PO BID [facility] Last Admin: 11/16/16 10:12 Dose: 500 mg Vancomycin HCl (Vancocin (Oral Or Rectal Use)) 125 mg PO Q6 [facility] Last Admin: 11/16/16 05:24 Dose: 125 mg - Labs Labs: 11/16/16 07:05 11/16/16 07:05 PT 15.2 SECONDS (9.7-12.2) H 11/03/16 08:05 INR 1.3 11/03/16 08:05 APTT 32 SECONDS (21-34) 11/03/16 08:05 - Additional Findings Additional findings: - Constitutional Appears: Well, Non-toxic, No Acute Distress, Resting Comfortably in Bed - Head Exam Head Exam: ATRAUMATIC, NORMAL INSPECTION, NORMOCEPHALIC - Eye Exam Eye Exam: EOMI, Normal appearance. absent: Conjunctival injection, Scleral icterus Pupil Exam: absent: Irregular, Unequal - ENT Exam ENT Exam: Mucous Membranes Moist - Neck Exam Neck Exam: Full ROM. absent: Tenderness - Respiratory Exam Respiratory Exam: Chest Wall Tenderness (at and adjacent to site of chest tube) , Decreased Breath Sounds (mild decreased breath sounds R>L), Clear to Ausculation Bilateral, NORMAL BREATHING PATTERN, Posterior chest tube remaining , Anterior chest tube absent with site sealed. absent: Accessory Muscle Use, Rales, Rhonchi, Wheezes - Cardiovascular Exam Cardiovascular Exam: REGULAR RHYTHM, RRR, +S1, +S2. absent: Bradycardia, Tachycardia - GI/Abdominal Exam GI & Abdominal Exam: Soft, Normal Bowel Sounds. absent: Distended, Firm, Rigid , Tenderness, Diminished Bowel Sounds, Hypoactive Bowel Sounds - Extremities Exam Extremities Exam: Full ROM, Normal Capillary Refill, Pedal Edema (+1 pitting edema in bilateral LE, extending up to mid moore, wearing compression stockings) , Tenderness (tenderness in bilateral feet, pressure sensation). absent: Calf Tenderness, Joint Swelling, Normal Inspection - Neurological Exam Neurological Exam: Alert, Awake, CN II-XII Intact, Oriented x3 - Psychiatric Exam Psychiatric exam: Normal Mood, Normal Affect - Skin Skin Exam: Dry, Intact, Normal Color, Warm Assessment and Plan (1) Tachycardia Assessment & Plan: 11/04/16 ELG- sinus tachycardia, physiologic axis, normal LA interval, normal QRS duration, prolonged QTc, poor R wave progression, no ST or T wave abnormalities 11/02/16 EKG- sinus tachycardia, right axis deviation, normal LA interval, normal QRS duration, prolonged QTc, nonspecific ST/T wave abnormality 11/03/15 Echo- EF 53%, normal diastolic filling pressures Troponin negative x 2 (<0.0120 x 2) CK-MB negative x 2 (1.00 > 0.63) BNP 102 (normal) -cardiac stable at this point -tachycardic with and after exertion (using bedside commode, walking with PT, etc), otherwise remains normocardic -will continue to monitor -continue Lopressor 50mg PO q12 Status: Resolved (2) Bilateral lower extremity edema Assessment & Plan: -Continue Lasix 20mg IVP q12 -José hose stockings, ambulating with PT as tolerated -Encourage patient to keep legs elevated and not flat or dangling off of bed when lying down Status: Resolved (3) Pre-procedural cardiovascular examination Assessment & Plan: -Cardiac Risk Assessment- Low Risk (POD #10 s/p VATS) - Detsky Score 10: Class I - Low Risk - Jenkins Score 3: Class I - Low Risk - Tunde Score 2- Moderate Risk Case discussed with Dr. Lin Status: Resolved <Saravanan Lin - Last Filed: 12/01/16 07:29> Objective - Vital Signs/Intake and Output Vital Signs (last 24 hours): Temp Pulse Resp BP Pulse Ox 97.7 F 82 18 120/83 95 11/30/16 08:06 11/30/16 08:06 11/30/16 08:06 11/30/16 08:06 11/30/16 08:06 - Labs Labs: 11/29/16 07:08 11/29/16 07:08 PT 14.4 SECONDS (9.7-12.2) H 11/29/16 07:08 INR 1.3 11/29/16 07:08 APTT 35 SECONDS (21-34) H 11/29/16 07:08 Assessment and Plan (1) HTN (hypertension) Status: Chronic (2) Tachycardia Status: Resolved Attending/Attestation - Attestation I have personally seen and examined this patient.: Yes I have fully participated in the care of the patient.: Yes I have reviewed all pertinent clinical information, including history, physical exam and plan: Yes Notes (Text): 12/01/16 07:28 Pt dixxiness today resolved with rest. BP ok
--- NOTE | 2016-11-16 11:57 | RAD ---
HISTORY: pneumonia COMPARISON: Comparison chest and CT scan chest both dated 11/15/2016 FINDINGS: LUNGS: Interval removal right-sided chest tube though a single right-sided chest tube remains. Re- demonstrated is right-sided patchy atelectasis and or infiltrate changes throughout the mid to lower lung field and to a lesser degree right upper lobe. Loculated right-sided effusion is seen to better advantage on prior CT scan. . No definitive pneumothorax. PLEURA: As above. CARDIOVASCULAR: Normal. OSSEOUS STRUCTURES: No significant abnormalities. VISUALIZED UPPER ABDOMEN: Normal. OTHER FINDINGS: None. IMPRESSION: Interval removal right-sided chest tube though a single right-sided chest tube remains. Re- demonstrated is right-sided patchy atelectasis and or infiltrate changes throughout the mid to lower lung field and to a lesser degree right upper lobe. Loculated right-sided effusions are seen to better advantage on prior CT scan. . No definitive pneumothorax.
[2016-11-16] MEDS: Promethazine/Cod 6.25mg-10mg/5ml Syr UD PO PRN (13:24)
--- NOTE | 2016-11-16 20:38 | CP.PCM.PN ---
Subjective - Date & Time of Evaluation Date of Evaluation: 11/16/16 Time of Evaluation: 20:35 - Subjective Subjective: INFECTIOUS DISEASE PROGRESS NOTE MARIA DIAZ MD, FACP 6T 671-B 11/16/2016 SLOW BUT STEADY IMPROVEMENT QUESTION OF NEED IR ASPIRATION AND DRAINAGE OF LOCULATED AREAS. CASE DISCUSSED WITH DR SUE RECENTLY IN DEPTH. Objective - Vital Signs/Intake and Output Vital Signs (last 24 hours): Temp Pulse Resp BP Pulse Ox 99.3 F 94 H 20 151/89 H 95 11/16/16 15:50 11/16/16 17:41 11/16/16 15:50 11/16/16 17:41 11/16/16 15:50 - Medications Medications: Current Medications Albuterol/Ipratropium (Duoneb 3 Mg/0.5 Mg (3 Ml) Ud) 3 ml INH RQ6 [facility] Last Admin: 11/16/16 20:10 Dose: 3 ml Famotidine (Pepcid) 20 mg PO DAILY [facility] Last Admin: 11/16/16 10:10 Dose: 20 mg Glipizide (Glucotrol) 2.5 mg PO DAILY [facility] Last Admin: 11/16/16 10:09 Dose: 2.5 mg Imipenem/Cilastatin Sodium 1, (000 mg/ Sodium Chloride) 250 mls @ 250 mls/hr IVPB Q8H [facility] Last Admin: 11/16/16 17:00 Dose: 250 mls/hr Metronidazole (Flagyl) 500 mg in 100 mls @ 100 mls/hr IVPB Q8 [facility] Last Admin: 11/16/16 13:15 Dose: 100 mls/hr Insulin Aspart (Novolog) 0 unit SC ACHS [facility] PRN Reason: Protocol Last Admin: 11/16/16 16:45 Dose: Not Given Insulin Detemir (Levemir) 40 unit SC Q12 [facility] Last Admin: 11/16/16 10:12 Dose: 40 unit Lisinopril (Zestril) 20 mg PO DAILY [facility] Last Admin: 11/16/16 10:09 Dose: 20 mg Metoprolol Tartrate (Lopressor) 50 mg PO Q12H [facility] Last Admin: 11/16/16 10:09 Dose: 50 mg Morphine Sulfate (Morphine) 4 mg IVP Q4 PRN PRN Reason: Pain, moderate (4-7) Last Admin: 11/16/16 17:44 Dose: 4 mg Promethazine HCl/Codeine (Phenergan/Codeine Oral Syrup) 5 ml PO Q4 PRN PRN Reason: Cough Last Admin: 11/16/16 13:24 Dose: 5 ml Saccharomyces Boulardii (Florastor) 500 mg PO BID [facility] Last Admin: 11/16/16 17:43 Dose: 500 mg Vancomycin HCl (Vancocin (Oral Or Rectal Use)) 125 mg PO Q6 [facility] Last Admin: 11/16/16 17:43 Dose: 125 mg - Labs Labs: 11/16/16 07:05 11/16/16 07:05 PT 15.2 SECONDS (9.7-12.2) H 11/03/16 08:05 INR 1.3 11/03/16 08:05 APTT 32 SECONDS (21-34) 11/03/16 08:05 - Constitutional Appears: Non-toxic, No Acute Distress - Head Exam Head Exam: NORMAL INSPECTION - ENT Exam ENT Exam: Mucous Membranes Moist - Neck Exam Neck Exam: Normal Inspection - Respiratory Exam Respiratory Exam: Decreased Breath Sounds - Cardiovascular Exam Cardiovascular Exam: REGULAR RHYTHM - GI/Abdominal Exam GI & Abdominal Exam: Soft. absent: Tenderness - Rectal Exam Rectal Exam: Deferred - Neurological Exam Neurological Exam: Alert, Awake Assessment and Plan (1) Empyema Status: Acute (2) Pneumonia Status: Acute (3) Pleural effusion on right Status: Acute (4) Bilateral lower extremity edema Status: Resolved (5) Anemia Status: Chronic (6) Hyperglycemia Status: Acute (7) HTN (hypertension) Status: Chronic (8) Diarrhea Status: Acute
[2016-11-17] MEDS: Vancomycin 125 MG/5 ML SOLN (ORAL/RECTAL) PO SCH ×4 (00:27→17:36)
[2016-11-17] MEDS: Albuterol-Ipratrop 3 mg / 0.5 (3 ml) UD INH SCH ×4 (01:24→19:37)
[2016-11-17] MEDS: metroNIDAZOLE IV 500 mg/100 ml 500 MG/100 ML BAG IVPB SCH ×3 (05:05→22:35)
[2016-11-17] MEDS: (Novolog) Insulin Aspart, Recombinant 100 u/ml 10 ml vial SC SCH ×4 (07:39→22:08)
[2016-11-17 08:53] LABS: BASO % 0.4 % (0.0-2.0); EOS % 0.7 % (0.0-4.0); HEMATOCRIT 23.8 % (35.0-51.0); LYMPH # 1.7 K/uL (1.0-4.3); LYMPH % 25.3 % (20.0-40.0); MEAN CELL VOLUME 82.3 fL (80.0-94.0); MEAN CORPUSCULAR HEMOGLOBIN 26.5 pg (27.0-31.0); MEAN CORPUSCULAR HGB CONC 32.2 g/dL (33.0-37.0); MEAN PLATELET VOLUME 9.2 fL (7.2-11.7); MONO # 0.8 K/uL (0.0-0.8); MONO % 12.3 % (0.0-10.0); NRBC % 0.1 % (0.0-2.0); RED CELL DISTRIBUTION WIDTH 15.6 % (11.5-14.5); WHITE BLOOD COUNT 6.7 K/uL (4.8-10.8)
[2016-11-17 08:54] LABS: INR 1.4
[2016-11-17 09:02] LABS: CHLORIDE 93 mmol/L (98-107); SODIUM 129 mmol/L (132-148)
[2016-11-17 09:03] LABS: POTASSIUM 3.9 mmol/L (3.6-5.2)
[2016-11-17 09:05] LABS: CARBON DIOXIDE 28 mmol/L (22-30); GFR AFRICAN-AMERICAN > 60
[2016-11-17 09:06] LABS: BLOOD UREA NITROGEN 11 mg/dL (9-20); GLUCOSE,RANDOM 158 mg/dL (75-110)
--- NOTE | 2016-11-17 09:25 | CP.PCM.PN ---
<Zay Prado - Last Filed: 11/17/16 09:17> Subjective - Date & Time of Evaluation Date of Evaluation: 11/17/16 Time of Evaluation: 07:15 - Subjective Subjective: Cardiology Progress Note Dr. Lin Patient seen and examined at the bedside. No acute distress. No overnight issues as per patient and nursing. Anterior chest tube removed 2 days prior. Patient is POD #13 s/p thoracotomy with Dr. Villagomez. Denies SOB today, and denies SOB/Lightheadedness/Dizziness while walking with PT. Persistence of pleural loculations determined on CT chest yesterday, pending placement of additional chest tube today. No interval change from prior exams. The patient is resting comfortably in the bed, receiving breathing treatment. Some chest tenderness and sensation of abnormal mass when taking deep breaths (at site of remaining chest tube), unchanged from yesterday. He denies all other complaints this morning. 12 point review of systems was completed and negative except for the above, stated complaints. Objective - Vital Signs/Intake and Output Vital Signs (last 24 hours): Temp Pulse Resp BP Pulse Ox 98.9 F 93 H 20 131/79 100 11/17/16 09:08 11/17/16 09:08 11/17/16 09:08 11/17/16 09:08 11/17/16 09:08 Intake and Output: 11/17/16 11/17/16 06:59 18:59 Intake Total 1170 Output Total 2 Balance 1168 - Medications Medications: Current Medications Albuterol/Ipratropium (Duoneb 3 Mg/0.5 Mg (3 Ml) Ud) 3 ml INH RQ6 [facility] Last Admin: 11/17/16 01:24 Dose: Not Given Famotidine (Pepcid) 20 mg PO DAILY [facility] Last Admin: 11/16/16 10:10 Dose: 20 mg Glipizide (Glucotrol) 2.5 mg PO DAILY [facility] Last Admin: 11/16/16 10:09 Dose: 2.5 mg Imipenem/Cilastatin Sodium 1, (000 mg/ Sodium Chloride) 250 mls @ 250 mls/hr IVPB Q8H [facility] Last Admin: 11/17/16 07:50 Dose: 250 mls/hr Metronidazole (Flagyl) 500 mg in 100 mls @ 100 mls/hr IVPB Q8 [facility] Last Admin: 11/17/16 05:05 Dose: 100 mls/hr Insulin Aspart (Novolog) 0 unit SC ACHS [facility] PRN Reason: Protocol Last Admin: 11/17/16 07:39 Dose: Not Given Insulin Detemir (Levemir) 40 unit SC Q12 [facility] Last Admin: 11/16/16 10:12 Dose: 40 unit Lisinopril (Zestril) 20 mg PO DAILY [facility] Last Admin: 11/16/16 10:09 Dose: 20 mg Metoprolol Tartrate (Lopressor) 50 mg PO Q12H [facility] Last Admin: 11/17/16 07:50 Dose: 50 mg Morphine Sulfate (Morphine) 4 mg IVP Q4 PRN PRN Reason: Pain, moderate (4-7) Last Admin: 11/17/16 05:02 Dose: 4 mg Promethazine HCl/Codeine (Phenergan/Codeine Oral Syrup) 5 ml PO Q4 PRN PRN Reason: Cough Last Admin: 11/16/16 13:24 Dose: 5 ml Saccharomyces Boulardii (Florastor) 500 mg PO BID [facility] Last Admin: 11/16/16 17:43 Dose: 500 mg Vancomycin HCl (Vancocin (Oral Or Rectal Use)) 125 mg PO Q6 [facility] Last Admin: 11/17/16 05:03 Dose: 125 mg - Labs Labs: 11/17/16 08:41 11/17/16 08:41 PT 15.8 SECONDS (9.7-12.2) H 11/17/16 08:41 INR 1.4 11/17/16 08:41 APTT 32 SECONDS (21-34) 11/17/16 08:41 - Additional Findings Additional findings: - Constitutional Appears: Well, Non-toxic, No Acute Distress, Resting Comfortably in Bed - Head Exam Head Exam: ATRAUMATIC, NORMAL INSPECTION, NORMOCEPHALIC - Eye Exam Eye Exam: EOMI, Normal appearance. absent: Conjunctival injection, Scleral icterus Pupil Exam: absent: Irregular, Unequal - ENT Exam ENT Exam: Mucous Membranes Moist - Neck Exam Neck Exam: Full ROM. absent: Tenderness - Respiratory Exam Respiratory Exam: Chest Wall Tenderness (at and adjacent to site of remaining chest tube), Decreased Breath Sounds (mild decreased breath sounds, improved over yesterday, equal bilaterally), Clear to Ausculation Bilateral, NORMAL BREATHING PATTERN, Posterior R-sided chest tube in place on suction (no drainage noted in tubing). absent: Accessory Muscle Use, Rales, Rhonchi, Wheezes - Cardiovascular Exam Cardiovascular Exam: REGULAR RHYTHM, RRR, +S1, +S2. absent: Bradycardia, Tachycardia - GI/Abdominal Exam GI & Abdominal Exam: Soft, Normal Bowel Sounds. absent: Distended, Firm, Rigid , Tenderness, Diminished Bowel Sounds, Hypoactive Bowel Sounds - Extremities Exam Extremities Exam: Full ROM, Normal Capillary Refill, Pedal Edema (+1 pitting edema in bilateral LE, extending up to mid moore, wearing compression stockings) . absent: Tenderness, Calf Tenderness, Joint Swelling, Normal Inspection - Neurological Exam Neurological Exam: Alert, Awake, CN II-XII Intact, Oriented x3 - Psychiatric Exam Psychiatric exam: Normal Mood, Normal Affect - Skin Skin Exam: Dry, Intact, Normal Color, Warm Assessment and Plan (1) Tachycardia Assessment & Plan: 11/04/16 ELG- sinus tachycardia, physiologic axis, normal OH interval, normal QRS duration, prolonged QTc, poor R wave progression, no ST or T wave abnormalities 11/02/16 EKG- sinus tachycardia, right axis deviation, normal OH interval, normal QRS duration, prolonged QTc, nonspecific ST/T wave abnormality 11/03/15 Echo- EF 53%, normal diastolic filling pressures Troponin negative x 2 (<0.0120 x 2) CK-MB negative x 2 (1.00 > 0.63) BNP 102 (normal) -cardiac stable at this point -tachycardic with and after exertion (using bedside commode, walking with PT, etc), otherwise remains normocardic -will continue to monitor -continue Lopressor 50mg PO q12 Status: Resolved (2) Bilateral lower extremity edema Assessment & Plan: -Continue Lasix 20mg IVP q12 -José hose stockings, ambulating with PT as tolerated -Encourage patient to keep legs elevated and not flat or dangling off of bed when lying down Status: Resolved (3) Pre-procedural cardiovascular examination Assessment & Plan: -Cardiac Risk Assessment- Low Risk (POD #10 s/p VATS) - Detsky Score 10: Class I - Low Risk - Jenkins Score 3: Class I - Low Risk - Tunde Score 2- Moderate Risk Case discussed with Dr. Lin Status: Resolved <Saravanan Lin - Last Filed: 12/29/16 09:22> Objective - Vital Signs/Intake and Output Vital Signs (last 24 hours): Temp Pulse Resp BP Pulse Ox 97.7 F 82 18 120/83 95 11/30/16 08:06 11/30/16 08:06 11/30/16 08:06 11/30/16 08:06 11/30/16 08:06 - Labs Labs: 11/29/16 07:08 11/29/16 07:08 PT 14.4 SECONDS (9.7-12.2) H 11/29/16 07:08 INR 1.3 11/29/16 07:08 APTT 35 SECONDS (21-34) H 11/29/16 07:08 Assessment and Plan (1) HTN (hypertension) Status: Chronic (2) Tachycardia Status: Resolved Attending/Attestation - Attestation I have personally seen and examined this patient.: Yes I have fully participated in the care of the patient.: Yes I have reviewed all pertinent clinical information, including history, physical exam and plan: Yes
[2016-11-17] MEDS: Saccharomyces Boulardi 250 mg Cap PO SCH ×2 (09:53→19:22)
[2016-11-17] MEDS: GlipiZIDE 2.5 mg Tab PO SCH (10:00)
[2016-11-17] MEDS ORDERED: Midazolam 2 MG/2 ML VIAL ONE ×2 (13:48)
--- NOTE | 2016-11-17 14:38 | PCM.SURG1 ---
Surgeon's Initial Post Op Note - Surgeon's Notes Surgeon: Wilson Baron MD Cupola Tapper: None Type of Anesthesia: IV Sedation Pre-Operative Diagnosis: Empyema Operative Findings: CT showed complex right lung collection Post-Operative Diagnosis: Empyema Operation Performed: CT guided placement of a 12 fr pigtail drain Specimen/Specimens Removed: 10 cc bloody fluid Estimated Blood Loss: EBL {In ML}: 0 Blood Products Given: N/A Drains Used: No Drains Post-Op Condition: Fair Date of Surgery/Procedure: 11/17/16 Time of Surgery/Procedure: 14:30
--- NOTE | 2016-11-17 15:03 | CP.PCM.PN ---
Subjective - Date & Time of Evaluation Date of Evaluation: 11/17/16 Time of Evaluation: 07:00 - Subjective Subjective: THORACIC SURGERY PROGRESS NOTE FOR DR. AYERS Patient seen and examined at bedside. He denies SOB. He still has some pain at the chest tube site. He is tolerating his diet. He is NPO for IR CT guided drainage today. Objective - Vital Signs/Intake and Output Vital Signs (last 24 hours): Temp Pulse Resp BP Pulse Ox 98.1 F 81 20 116/69 99 11/17/16 13:21 11/17/16 13:21 11/17/16 13:21 11/17/16 13:21 11/17/16 13:21 Intake and Output: 11/17/16 11/17/16 06:59 18:59 Intake Total 1170 Output Total 2 Balance 1168 - Medications Medications: Current Medications Albuterol/Ipratropium (Duoneb 3 Mg/0.5 Mg (3 Ml) Ud) 3 ml INH RQ6 [facility] Last Admin: 11/17/16 13:25 Dose: Not Given Famotidine (Pepcid) 20 mg PO DAILY [facility] Last Admin: 11/17/16 09:54 Dose: 20 mg Glipizide (Glucotrol) 2.5 mg PO DAILY [facility] Last Admin: 11/17/16 10:00 Dose: Not Given Imipenem/Cilastatin Sodium 1, (000 mg/ Sodium Chloride) 250 mls @ 250 mls/hr IVPB Q8H [facility] Last Admin: 11/17/16 07:50 Dose: 250 mls/hr Metronidazole (Flagyl) 500 mg in 100 mls @ 100 mls/hr IVPB Q8 [facility] Last Admin: 11/17/16 05:05 Dose: 100 mls/hr Insulin Aspart (Novolog) 0 unit SC ACHS [facility] PRN Reason: Protocol Last Admin: 11/17/16 12:32 Dose: Not Given Insulin Detemir (Levemir) 40 unit SC Q12 [facility] Last Admin: 11/16/16 10:12 Dose: 40 unit Lisinopril (Zestril) 20 mg PO DAILY [facility] Last Admin: 11/17/16 09:54 Dose: 20 mg Metoprolol Tartrate (Lopressor) 50 mg PO Q12H [facility] Last Admin: 11/17/16 07:50 Dose: 50 mg Morphine Sulfate (Morphine) 4 mg IVP Q4 PRN PRN Reason: Pain, moderate (4-7) Last Admin: 11/17/16 09:54 Dose: 4 mg Promethazine HCl/Codeine (Phenergan/Codeine Oral Syrup) 5 ml PO Q4 PRN PRN Reason: Cough Last Admin: 11/16/16 13:24 Dose: 5 ml Saccharomyces Boulardii (Florastor) 500 mg PO BID [facility] Last Admin: 11/17/16 09:53 Dose: 500 mg Vancomycin HCl (Vancocin (Oral Or Rectal Use)) 125 mg PO Q6 [facility] Last Admin: 11/17/16 12:09 Dose: 125 mg - Labs Labs: 11/17/16 08:41 11/17/16 08:41 PT 15.8 SECONDS (9.7-12.2) H 11/17/16 08:41 INR 1.4 11/17/16 08:41 APTT 32 SECONDS (21-34) 11/17/16 08:41 - Constitutional Appears: Non-toxic, No Acute Distress - Eye Exam Eye Exam: EOMI, Normal appearance - Respiratory Exam Respiratory Exam: NORMAL BREATHING PATTERN. absent: Respiratory Distress Additional comments: Right chest tube on suction, no new output No air leak Dressing with some drainage - changed Incision site with some serous drainage between mehnaz - Cardiovascular Exam Cardiovascular Exam: +S1, +S2 - Neurological Exam Neurological Exam: Alert, Awake, Oriented x3 - Psychiatric Exam Psychiatric exam: Normal Affect, Normal Mood - Skin Skin Exam: Dry, Normal Color, Warm Assessment and Plan - Assessment and Plan (Free Text) Assessment: 40M w. R parapneumonic effusion, s/p VATS converted to thoracotomy, w. decortication and wedge resection POD#14 - Afebrile, VSS - Daily CXR - Chest tube on right on suction, no air leak, no new output - Will likely DC chest tube tomorrow - Dressing changed this AM - Pleural fluid cx: no growth after 3 days - Dr. Baron did CT guided placement of 12F pigtail drain today - Discussed plan with Dr. Hernando Avalos PGy-2
--- NOTE | 2016-11-17 19:36 | CP.PCM.PN ---
Subjective - Date & Time of Evaluation Date of Evaluation: 11/16/16 Time of Evaluation: 19:34 - Subjective Subjective: Patient is still having pain over the right side of the chest. One of the chest was removed. During the evaluation I spoke to the thoracic surgeon as well as infectious disease. Patient has a moderate amount of ablation in the medial side of the right side of the lungs. Associated with the some gas shadows possibly fluid level noted. Patient may benefit by draining the liquid at this time. Patient is currently having no fever or chills, but sweating noted Objective - Vital Signs/Intake and Output Vital Signs (last 24 hours): Temp Pulse Resp BP Pulse Ox 98.9 F 75 20 137/75 95 11/17/16 16:00 11/17/16 16:00 11/17/16 16:00 11/17/16 16:00 11/17/16 16:00 Intake and Output: 11/17/16 11/18/16 18:59 06:59 Output Total 750 Balance -750 diarrhea got better. Chest good air entry left lung. Right lung decreased air enAbdomen soft and nontenderLeg edema more on the ri - Medications Medications: Current Medications Albuterol/Ipratropium (Duoneb 3 Mg/0.5 Mg (3 Ml) Ud) 3 ml INH RQ6 [facility] Last Admin: 11/17/16 13:25 Dose: Not Given Famotidine (Pepcid) 20 mg PO DAILY [facility] Last Admin: 11/17/16 09:54 Dose: 20 mg Glipizide (Glucotrol) 2.5 mg PO DAILY [facility] Last Admin: 11/17/16 10:00 Dose: Not Given Imipenem/Cilastatin Sodium 1, (000 mg/ Sodium Chloride) 250 mls @ 250 mls/hr IVPB Q8H [facility] Last Admin: 11/17/16 17:36 Dose: 250 mls/hr Metronidazole (Flagyl) 500 mg in 100 mls @ 100 mls/hr IVPB Q8 [facility] Last Admin: 11/17/16 15:03 Dose: 100 mls/hr Insulin Aspart (Novolog) 0 unit SC ACHS [facility] PRN Reason: Protocol Last Admin: 11/17/16 17:33 Dose: 4 unit Insulin Detemir (Levemir) 40 unit SC Q12 [facility] Last Admin: 11/16/16 10:12 Dose: 40 unit Lisinopril (Zestril) 20 mg PO DAILY [facility] Last Admin: 11/17/16 09:54 Dose: 20 mg Metoprolol Tartrate (Lopressor) 50 mg PO Q12H [facility] Last Admin: 11/17/16 07:50 Dose: 50 mg Morphine Sulfate (Morphine) 4 mg IVP Q4 PRN PRN Reason: Pain, moderate (4-7) Last Admin: 11/17/16 16:13 Dose: 4 mg Promethazine HCl/Codeine (Phenergan/Codeine Oral Syrup) 5 ml PO Q4 PRN PRN Reason: Cough Last Admin: 11/16/16 13:24 Dose: 5 ml Saccharomyces Boulardii (Florastor) 500 mg PO BID [facility] Last Admin: 11/17/16 19:22 Dose: 500 mg Vancomycin HCl (Vancocin (Oral Or Rectal Use)) 125 mg PO Q6 [facility] Last Admin: 11/17/16 17:36 Dose: 125 mg - Labs Labs: 11/17/16 08:41 11/17/16 08:41 PT 15.8 SECONDS (9.7-12.2) H 11/17/16 08:41 INR 1.4 11/17/16 08:41 APTT 32 SECONDS (21-34) 11/17/16 08:41 Assessment and Plan - Assessment and Plan (Free Text) Assessment: patient with thesevere empyema, complicated with the chest tube. Still having infection. On antibiotic. I spoke to the infectious disease. patient is on broad-spectru and gram-negative coverage and gram-positive coverag Denies any problem at this time. C. difficile colitis, being treated, controlled.
--- NOTE | 2016-11-17 19:39 | CP.PCM.PN ---
Subjective - Date & Time of Evaluation Date of Evaluation: 11/17/16 Time of Evaluation: 19:36 - Subjective Subjective: Patient had a pigtail catheter today over the right medial loculated pleural effusion. Hemorrhagic fluid drained. Patient is currently comfortable. But complaining of pain in the right side of the chest were the chest tube area No nausea vomiting, no fever noted, vital signs stable Glucose is controlled well Objective - Vital Signs/Intake and Output Vital Signs (last 24 hours): Temp Pulse Resp BP Pulse Ox 98.9 F 75 20 137/75 95 11/17/16 16:00 11/17/16 16:00 11/17/16 16:00 11/17/16 16:00 11/17/16 16:00 Intake and Output: 11/17/16 11/18/16 18:59 06:59 Output Total 750 Balance -750 chest good air entry on left lung and decreased air entry right lung Regular heart sound nontender abdomen - Medications Medications: Current Medications Albuterol/Ipratropium (Duoneb 3 Mg/0.5 Mg (3 Ml) Ud) 3 ml INH RQ6 [facility] Last Admin: 11/17/16 13:25 Dose: Not Given Famotidine (Pepcid) 20 mg PO DAILY [facility] Last Admin: 11/17/16 09:54 Dose: 20 mg Glipizide (Glucotrol) 2.5 mg PO DAILY [facility] Last Admin: 11/17/16 10:00 Dose: Not Given Imipenem/Cilastatin Sodium 1, (000 mg/ Sodium Chloride) 250 mls @ 250 mls/hr IVPB Q8H [facility] Last Admin: 11/17/16 17:36 Dose: 250 mls/hr Metronidazole (Flagyl) 500 mg in 100 mls @ 100 mls/hr IVPB Q8 [facility] Last Admin: 11/17/16 15:03 Dose: 100 mls/hr Insulin Aspart (Novolog) 0 unit SC ACHS [facility] PRN Reason: Protocol Last Admin: 11/17/16 17:33 Dose: 4 unit Insulin Detemir (Levemir) 40 unit SC Q12 [facility] Last Admin: 11/16/16 10:12 Dose: 40 unit Lisinopril (Zestril) 20 mg PO DAILY [facility] Last Admin: 11/17/16 09:54 Dose: 20 mg Metoprolol Tartrate (Lopressor) 50 mg PO Q12H [facility] Last Admin: 11/17/16 07:50 Dose: 50 mg Morphine Sulfate (Morphine) 4 mg IVP Q4 PRN PRN Reason: Pain, moderate (4-7) Last Admin: 11/17/16 16:13 Dose: 4 mg Promethazine HCl/Codeine (Phenergan/Codeine Oral Syrup) 5 ml PO Q4 PRN PRN Reason: Cough Last Admin: 11/16/16 13:24 Dose: 5 ml Saccharomyces Boulardii (Florastor) 500 mg PO BID [facility] Last Admin: 11/17/16 19:22 Dose: 500 mg Vancomycin HCl (Vancocin (Oral Or Rectal Use)) 125 mg PO Q6 [facility] Last Admin: 11/17/16 17:36 Dose: 125 mg - Labs Labs: 11/17/16 08:41 11/17/16 08:41 PT 15.8 SECONDS (9.7-12.2) H 11/17/16 08:41 INR 1.4 11/17/16 08:41 APTT 32 SECONDS (21-34) 11/17/16 08:41 Assessment and Plan - Assessment and Plan (Free Text) Assessment: Patient with a severe empyema, pneumonia, complicated with the loculated pleural effusion. Status post a VATS procedure and chest tube. But still having loculated pleural effusion. Pigtail catheter was done today. We'll get the culture from the fluid. Repeat the chest x-ray in the morning. Currently on antibiotic. Patient may need a PICC line for long-term antibiotic. We'll discuss with the vascular surgery for possible removal of the chest tube. And will follow the patient
[2016-11-17] MEDS: Insulin Detemir 100 units/ml Vial (Levemir) SC SCH (22:35)
[2016-11-18] MEDS ORDERED: Morphine 4 MG/ML VIAL IVP STA (00:27)
[2016-11-18] MEDS: Vancomycin 125 MG/5 ML SOLN (ORAL/RECTAL) PO SCH ×4 (00:49→17:50)
[2016-11-18] MEDS: Albuterol-Ipratrop 3 mg / 0.5 (3 ml) UD INH SCH ×4 (02:18→21:41)
[2016-11-18] MEDS: metroNIDAZOLE IV 500 mg/100 ml 500 MG/100 ML BAG IVPB SCH ×3 (05:28→22:15)
[2016-11-18] MEDS: (Novolog) Insulin Aspart, Recombinant 100 u/ml 10 ml vial SC SCH ×4 (08:04→22:00)
--- NOTE | 2016-11-18 08:38 | RAD ---
HISTORY: right chest tube COMPARISON: 11/16/2016 FINDINGS: LUNGS: Interval placement of a pigtail catheter drain at the medial right lung base. Other lines and tubes in stable position. Persistent moderate loculated right pleural effusion. Prominent consolidative changes in the right mid to lower lung zone as well as the medial right lung apex. PLEURA: As above. CARDIOVASCULAR: Cardiomegaly. OSSEOUS STRUCTURES: No significant abnormalities. VISUALIZED UPPER ABDOMEN: Normal. OTHER FINDINGS: None. IMPRESSION: Interval placement of a pigtail catheter drain at the medial right lung base. Other lines and tubes in stable position. Persistent moderate loculated right pleural effusion. Prominent consolidative changes in the right mid to lower lung zone as well as the medial right lung apex.
[2016-11-18] MEDS: Saccharomyces Boulardi 250 mg Cap PO SCH ×2 (09:44→17:43)
[2016-11-18] MEDS: GlipiZIDE 2.5 mg Tab PO SCH (09:45)
--- NOTE | 2016-11-18 09:45 | CP.PCM.PN ---
<Zay Prado - Last Filed: 11/18/16 09:56> Subjective - Date & Time of Evaluation Date of Evaluation: 11/18/16 Time of Evaluation: 07:10 - Subjective Subjective: Cardiology Progress Note Dr. Lin Patient seen and examined at the bedside. No acute distress. Some issues with pain control overnight 2/2 new chest tube placed in back yesterday (as per pt and nursing), but no acute events. Patient is POD #14 s/p thoracotomy with Dr. Villagomez. Denies SOB or chest pain today, but admits to pain/abnormal sensation at sites of chest tubes when taking deep breaths. New chest tube located in mid- back noted on exam today, draining serosanguinous fluid. The patient is resting comfortably in the bed at time of exam. He denies all other complaints this morning. 12 point review of systems was completed and negative except for the above, stated complaints. Objective - Vital Signs/Intake and Output Vital Signs (last 24 hours): Temp Pulse Resp BP Pulse Ox 98.2 F 84 20 115/75 99 11/18/16 07:00 11/18/16 07:00 11/18/16 07:00 11/18/16 07:00 11/18/16 07:00 Intake and Output: 11/18/16 11/18/16 06:59 18:59 Intake Total 580 Output Total 154 Balance 426 - Medications Medications: Current Medications Albuterol/Ipratropium (Duoneb 3 Mg/0.5 Mg (3 Ml) Ud) 3 ml INH RQ6 [facility] Last Admin: 11/18/16 08:02 Dose: 3 ml Famotidine (Pepcid) 20 mg PO DAILY [facility] Last Admin: 11/17/16 09:54 Dose: 20 mg Glipizide (Glucotrol) 2.5 mg PO DAILY [facility] Last Admin: 11/17/16 10:00 Dose: Not Given Imipenem/Cilastatin Sodium 1, (000 mg/ Sodium Chloride) 250 mls @ 250 mls/hr IVPB Q8H [facility] Last Admin: 11/18/16 08:05 Dose: 250 mls/hr Metronidazole (Flagyl) 500 mg in 100 mls @ 100 mls/hr IVPB Q8 [facility] Last Admin: 11/18/16 05:28 Dose: 100 mls/hr Insulin Aspart (Novolog) 0 unit SC ACHS [facility] PRN Reason: Protocol Last Admin: 11/18/16 08:04 Dose: 4 unit Insulin Detemir (Levemir) 40 unit SC Q12 [facility] Last Admin: 11/17/16 22:35 Dose: 40 unit Ketorolac Tromethamine (Toradol) 15 mg IVP Q6 PRN PRN Reason: Pain, moderate (4-7) Last Admin: 11/18/16 03:35 Dose: 15 mg Lisinopril (Zestril) 20 mg PO DAILY [facility] Last Admin: 11/17/16 09:54 Dose: 20 mg Metoprolol Tartrate (Lopressor) 50 mg PO Q12H [facility] Last Admin: 11/18/16 08:04 Dose: 50 mg Promethazine HCl/Codeine (Phenergan/Codeine Oral Syrup) 5 ml PO Q4 PRN PRN Reason: Cough Last Admin: 11/16/16 13:24 Dose: 5 ml Saccharomyces Boulardii (Florastor) 500 mg PO BID [facility] Last Admin: 11/17/16 19:22 Dose: 500 mg Vancomycin HCl (Vancocin (Oral Or Rectal Use)) 125 mg PO Q6 [facility] Last Admin: 11/18/16 05:32 Dose: 125 mg - Labs Labs: 11/17/16 08:41 11/17/16 08:41 PT 15.8 SECONDS (9.7-12.2) H 11/17/16 08:41 INR 1.4 11/17/16 08:41 APTT 32 SECONDS (21-34) 11/17/16 08:41 - Additional Findings Additional findings: - Constitutional Appears: Well, Non-toxic, No Acute Distress, Resting Comfortably in Bed - Head Exam Head Exam: ATRAUMATIC, NORMAL INSPECTION, NORMOCEPHALIC - Eye Exam Eye Exam: EOMI, Normal appearance. absent: Conjunctival injection, Scleral icterus Pupil Exam: absent: Irregular, Unequal - ENT Exam ENT Exam: Mucous Membranes Moist - Neck Exam Neck Exam: Full ROM. absent: Tenderness - Respiratory Exam Respiratory Exam: Chest Wall Tenderness (at and adjacent to site of both chest tubes, greater at newest chest tube in mid-back), Decreased Breath Sounds (mild decreased breath sounds, unchanged from yesterday, equal bilaterally), Clear to Ausculation Bilateral, NORMAL BREATHING PATTERN, Posterior R-sided chest tube and mid-back chest in place on suction (no drainage noted in R-posterior tubing , serosanguinous drainage in mid-back tubing). absent: Accessory Muscle Use, Rales, Rhonchi, Wheezes - Cardiovascular Exam Cardiovascular Exam: REGULAR RHYTHM, RRR, +S1, +S2. absent: Bradycardia, Tachycardia, Systolic or Diastolic murmurs, Clicks - GI/Abdominal Exam GI & Abdominal Exam: Soft, Normal Bowel Sounds. absent: Distended, Firm, Rigid , Tenderness, Diminished Bowel Sounds, Hypoactive Bowel Sounds - Extremities Exam Extremities Exam: Full ROM, Normal Capillary Refill, Pedal Edema (+1 pitting edema in bilateral LE, extending up to mid moore, wearing compression stockings) . absent: Tenderness, Calf Tenderness, Joint Swelling, Normal Inspection - Neurological Exam Neurological Exam: Alert, Awake, CN II-XII Intact, Oriented x3 - Psychiatric Exam Psychiatric exam: Normal Mood, Normal Affect - Skin Skin Exam: Dry, Intact (except at site of 2 active chest tubes described above and healing site of R-anterior tube removed previously), Normal Color, Warm Assessment and Plan (1) Tachycardia Assessment & Plan: 11/04/16 ELG- sinus tachycardia, physiologic axis, normal WI interval, normal QRS duration, prolonged QTc, poor R wave progression, no ST or T wave abnormalities 11/02/16 EKG- sinus tachycardia, right axis deviation, normal WI interval, normal QRS duration, prolonged QTc, nonspecific ST/T wave abnormality 11/03/15 Echo- EF 53%, normal diastolic filling pressures Troponin negative x 2 (<0.0120 x 2) CK-MB negative x 2 (1.00 > 0.63) BNP 102 (normal) -cardiac stable at this point -tachycardic with and briefly after exertion (using bedside commode, walking with PT, etc), otherwise remains normocardic -will continue to monitor -continue Lopressor 50mg PO q12 Status: Resolved (2) Bilateral lower extremity edema Assessment & Plan: -Continue Lasix 20mg IVP q12 -José hose stockings, ambulating with PT as tolerated -Encourage patient to keep legs elevated and not flat or dangling off of bed when lying down Status: Resolved (3) Pre-procedural cardiovascular examination Assessment & Plan: -Cardiac Risk Assessment- Low Risk (POD #10 s/p VATS) - Detsky Score 10: Class I - Low Risk - Jenkins Score 3: Class I - Low Risk - Tunde Score 2- Moderate Risk Case discussed with Dr Lin. Status: Resolved <Saravanan Lin - Last Filed: 12/01/16 07:27> Objective - Vital Signs/Intake and Output Vital Signs (last 24 hours): Temp Pulse Resp BP Pulse Ox 97.7 F 82 18 120/83 95 11/30/16 08:06 11/30/16 08:06 11/30/16 08:06 11/30/16 08:06 11/30/16 08:06 - Labs Labs: 11/29/16 07:08 11/29/16 07:08 PT 14.4 SECONDS (9.7-12.2) H 11/29/16 07:08 INR 1.3 11/29/16 07:08 APTT 35 SECONDS (21-34) H 11/29/16 07:08 Assessment and Plan (1) HTN (hypertension) Status: Chronic (2) Tachycardia Status: Resolved Attending/Attestation - Attestation I have personally seen and examined this patient.: Yes I have fully participated in the care of the patient.: Yes I have reviewed all pertinent clinical information, including history, physical exam and plan: Yes Notes (Text): 12/01/16 07:26 new loculation new chest tube inserted tachycardia controled
[2016-11-18] MEDS: Insulin Detemir 100 units/ml Vial (Levemir) SC SCH ×2 (09:46→22:00)
--- NOTE | 2016-11-18 10:30 | CT ---
PROCEDURE: Date of procedure: 11/17/2016 Procedure: 1. Placement of a right chest tube with CT guidance Medications: 8 cc 1 percent lidocaine, IV sedation administered by the anesthesiologist. HISTORY: Large loculated right pleural effusion TECHNIQUE: Following informed consent and procedure time-out, patient placed in a left lateral position CT scan was performed. CT scan confirmed presence of a large bore chest tube and loculated collection in the posterior lower right lower lobe. A skin localizer was placed on the patient's back and repeat CT scan performed. The skin was subsequently marked, prepped, and draped in the usual sterile fashion. After the skin was anesthetized with 1 percent lidocaine, Yueh catheter was advanced into the pleural space and into the collection. The catheter was exchanged over an 035 guidewire and tract was dilated to accommodate a 12 Stateless pigtail catheter formed within the pleural space. There is return of sanguinous fluid. The catheter was secured to patient's skin. A xeroform dressing was applied. The catheter was then attached to a pleurovac. Repeat CT scan confirmed position of the right pigtail pleural drainage catheter. IMPRESSION: Placement of a 12 Stateless right chest tube. There were no immediate complications.
--- NOTE | 2016-11-18 11:54 | CP.PCM.PN ---
Subjective - Date & Time of Evaluation Date of Evaluation: 11/18/16 Time of Evaluation: 06:00 - Subjective Subjective: THORACIC SURGERY PROGRESS NOTE FOR DR. AYERS Patient seen and examined at bedside. He denies SOB. He had increased pain at the chest tube site last night. Was given a stat dose of Morphine and Toradol was added to pain medication regimen. He is tolerating his diet. This afternoon with Dr. Ayers, we removed some mehnaz from right chest incision , painted the incision with betadine, took wound cx, drained wound, irrigated wound, and packed with iodaform. Objective - Vital Signs/Intake and Output Vital Signs (last 24 hours): Temp Pulse Resp BP Pulse Ox 98.2 F 84 20 115/75 99 11/18/16 07:00 11/18/16 07:00 11/18/16 07:00 11/18/16 07:00 11/18/16 07:00 Intake and Output: 11/18/16 11/18/16 06:59 18:59 Intake Total 580 Output Total 154 Balance 426 - Medications Medications: Current Medications Albuterol/Ipratropium (Duoneb 3 Mg/0.5 Mg (3 Ml) Ud) 3 ml INH RQ6 [facility] Last Admin: 11/18/16 08:02 Dose: 3 ml Famotidine (Pepcid) 20 mg PO DAILY [facility] Last Admin: 11/18/16 09:45 Dose: 20 mg Glipizide (Glucotrol) 2.5 mg PO DAILY [facility] Last Admin: 11/18/16 09:45 Dose: 2.5 mg Imipenem/Cilastatin Sodium 1, (000 mg/ Sodium Chloride) 250 mls @ 250 mls/hr IVPB Q8H [facility] Last Admin: 11/18/16 08:05 Dose: 250 mls/hr Metronidazole (Flagyl) 500 mg in 100 mls @ 100 mls/hr IVPB Q8 [facility] Last Admin: 11/18/16 05:28 Dose: 100 mls/hr Insulin Aspart (Novolog) 0 unit SC ACHS [facility] PRN Reason: Protocol Last Admin: 11/18/16 08:04 Dose: 4 unit Insulin Detemir (Levemir) 40 unit SC Q12 [facility] Last Admin: 11/18/16 09:46 Dose: 40 unit Ketorolac Tromethamine (Toradol) 15 mg IVP Q6 PRN PRN Reason: Pain, moderate (4-7) Last Admin: 11/18/16 09:45 Dose: 15 mg Lisinopril (Zestril) 20 mg PO DAILY [facility] Last Admin: 11/18/16 09:45 Dose: 20 mg Metoprolol Tartrate (Lopressor) 50 mg PO Q12H [facility] Last Admin: 11/18/16 08:04 Dose: 50 mg Morphine Sulfate (Morphine) 2 mg IVP Q4 PRN PRN Reason: Pain, moderate (4-7) Last Admin: 11/18/16 10:21 Dose: 2 mg Promethazine HCl/Codeine (Phenergan/Codeine Oral Syrup) 5 ml PO Q4 PRN PRN Reason: Cough Last Admin: 11/16/16 13:24 Dose: 5 ml Saccharomyces Boulardii (Florastor) 500 mg PO BID [facility] Last Admin: 11/18/16 09:44 Dose: 500 mg Vancomycin HCl (Vancocin (Oral Or Rectal Use)) 125 mg PO Q6 [facility] Last Admin: 11/18/16 05:32 Dose: 125 mg - Labs Labs: 11/17/16 08:41 11/17/16 08:41 PT 15.8 SECONDS (9.7-12.2) H 11/17/16 08:41 INR 1.4 11/17/16 08:41 APTT 32 SECONDS (21-34) 11/17/16 08:41 - Constitutional Appears: Non-toxic, No Acute Distress - Head Exam Head Exam: ATRAUMATIC, NORMAL INSPECTION - Respiratory Exam Respiratory Exam: NORMAL BREATHING PATTERN. absent: Respiratory Distress Additional comments: Right chest tube on suction, 10cc new output No air leak Dressing with some drainage - changed Incision site with some serous drainage between mehnaz - Cardiovascular Exam Cardiovascular Exam: +S1, +S2 - Neurological Exam Neurological Exam: Alert, Awake, Oriented x3 - Psychiatric Exam Psychiatric exam: Normal Affect, Normal Mood - Skin Skin Exam: Normal Color, Warm Assessment and Plan - Assessment and Plan (Free Text) Assessment: 40M w. R parapneumonic effusion, s/p VATS converted to thoracotomy, w. decortication and wedge resection POD#15 s/p IR CT guided pigtail placement on - Afebrile, VSS - Daily CXR - Chest tube on right on suction, no air leak, 10cc new output - 11/13 Pleural fluid cx: no growth after 3 days - 11/17 Pleural fluid from IR: gram stain did not show any organisms, cx pending - Will follow up wound cx taken today from right chest incision - Iodaform packing changes BID - Dressing changes PRN - Will remove chest tube Monday - Discussed plan with Dr. Hernando Avalos PGy-2
--- NOTE | 2016-11-18 14:55 | CP.PCM.PN ---
Subjective - Date & Time of Evaluation Date of Evaluation: 11/18/16 Time of Evaluation: 14:49 - Subjective Subjective: Anterior 1/3 of thoracotomy wound-infected (soft tissue abscess)-intact muscle closure: I and D and irrigated with ns and packed with 1/2 iodoform pakcing strip. c and s and gram stain done.Pig tail cath drained approx 200cc of old bloody fluid/since IR. a/p; Surigcal wound infection I and d-at bedside. Irrigate with ns followed by packing with iodoform packing strip bid. Consider removal of cath and chest tube on Monday. Objective - Vital Signs/Intake and Output Vital Signs (last 24 hours): Temp Pulse Resp BP Pulse Ox 98.2 F 84 20 115/75 99 11/18/16 07:00 11/18/16 07:00 11/18/16 07:00 11/18/16 07:00 11/18/16 07:00 Intake and Output: 11/18/16 11/18/16 06:59 18:59 Intake Total 580 500 Output Total 154 41 Balance 426 459 - Medications Medications: Current Medications Albuterol/Ipratropium (Duoneb 3 Mg/0.5 Mg (3 Ml) Ud) 3 ml INH RQ6 [facility] Last Admin: 11/18/16 13:43 Dose: Not Given Famotidine (Pepcid) 20 mg PO DAILY [facility] Last Admin: 11/18/16 09:45 Dose: 20 mg Glipizide (Glucotrol) 2.5 mg PO DAILY [facility] Last Admin: 11/18/16 09:45 Dose: 2.5 mg Imipenem/Cilastatin Sodium 1, (000 mg/ Sodium Chloride) 250 mls @ 250 mls/hr IVPB Q8H [facility] Last Admin: 11/18/16 08:05 Dose: 250 mls/hr Metronidazole (Flagyl) 500 mg in 100 mls @ 100 mls/hr IVPB Q8 [facility] Last Admin: 11/18/16 14:00 Dose: 100 mls/hr Insulin Aspart (Novolog) 0 unit SC ACHS [facility] PRN Reason: Protocol Last Admin: 11/18/16 12:09 Dose: 10 unit Insulin Detemir (Levemir) 40 unit SC Q12 [facility] Last Admin: 11/18/16 09:46 Dose: 40 unit Ketorolac Tromethamine (Toradol) 15 mg IVP Q6 PRN PRN Reason: Pain, moderate (4-7) Last Admin: 11/18/16 09:45 Dose: 15 mg Lisinopril (Zestril) 20 mg PO DAILY [facility] Last Admin: 11/18/16 09:45 Dose: 20 mg Metoprolol Tartrate (Lopressor) 50 mg PO Q12H [facility] Last Admin: 11/18/16 08:04 Dose: 50 mg Morphine Sulfate (Morphine) 2 mg IVP Q4 PRN PRN Reason: Pain, moderate (4-7) Last Admin: 11/18/16 13:58 Dose: 2 mg Promethazine HCl/Codeine (Phenergan/Codeine Oral Syrup) 5 ml PO Q4 PRN PRN Reason: Cough Last Admin: 11/16/16 13:24 Dose: 5 ml Saccharomyces Boulardii (Florastor) 500 mg PO BID [facility] Last Admin: 11/18/16 09:44 Dose: 500 mg Vancomycin HCl (Vancocin (Oral Or Rectal Use)) 125 mg PO Q6 [facility] Last Admin: 11/18/16 12:08 Dose: 125 mg - Labs Labs: 11/17/16 08:41 11/17/16 08:41 PT 15.8 SECONDS (9.7-12.2) H 11/17/16 08:41 INR 1.4 11/17/16 08:41 APTT 32 SECONDS (21-34) 11/17/16 08:41
--- NOTE | 2016-11-18 18:06 | CP.PCM.PN ---
Subjective - Date & Time of Evaluation Date of Evaluation: 11/18/16 Time of Evaluation: 18:04 - Subjective Subjective: INFECTIOUS DISEASE PROGRESS NOTE MARIA DIAZ MD, FACP 6T 671-B 11/18/2016 CLININCALLY FEELING BETTER EXCEPT PAIN FROM THE NEWER IR POSTERIOR CHEST TUBE. QUESTION OF RESPONSE DECREASED BREATH SOUNDS COR NOTED ABD SOFT STILL ANEMIC, WOULD RECOMMEND ASKING HEME FOR CHRONIC MANAGEMENT. Objective - Vital Signs/Intake and Output Vital Signs (last 24 hours): Temp Pulse Resp BP Pulse Ox 98.8 F 91 H 18 154/84 H 99 11/18/16 15:50 11/18/16 15:50 11/18/16 15:50 11/18/16 15:50 11/18/16 15:50 Intake and Output: 11/18/16 11/18/16 06:59 18:59 Intake Total 580 500 Output Total 154 41 Balance 426 459 - Medications Medications: Current Medications Albuterol/Ipratropium (Duoneb 3 Mg/0.5 Mg (3 Ml) Ud) 3 ml INH RQ6 [facility] Last Admin: 11/18/16 13:43 Dose: Not Given Famotidine (Pepcid) 20 mg PO DAILY [facility] Last Admin: 11/18/16 09:45 Dose: 20 mg Glipizide (Glucotrol) 2.5 mg PO DAILY [facility] Last Admin: 11/18/16 09:45 Dose: 2.5 mg Imipenem/Cilastatin Sodium 1, (000 mg/ Sodium Chloride) 250 mls @ 250 mls/hr IVPB Q8H [facility] Last Admin: 11/18/16 16:15 Dose: 250 mls/hr Metronidazole (Flagyl) 500 mg in 100 mls @ 100 mls/hr IVPB Q8 [facility] Last Admin: 11/18/16 14:00 Dose: 100 mls/hr Insulin Aspart (Novolog) 0 unit SC ACHS [facility] PRN Reason: Protocol Last Admin: 11/18/16 17:43 Dose: 10 unit Insulin Detemir (Levemir) 40 unit SC Q12 [facility] Last Admin: 11/18/16 09:46 Dose: 40 unit Ketorolac Tromethamine (Toradol) 15 mg IVP Q6 PRN PRN Reason: Pain, moderate (4-7) Last Admin: 11/18/16 09:45 Dose: 15 mg Lisinopril (Zestril) 20 mg PO DAILY [facility] Last Admin: 11/18/16 09:45 Dose: 20 mg Metoprolol Tartrate (Lopressor) 50 mg PO Q12H [facility] Last Admin: 11/18/16 08:04 Dose: 50 mg Morphine Sulfate (Morphine) 2 mg IVP Q4 PRN PRN Reason: Pain, moderate (4-7) Last Admin: 11/18/16 13:58 Dose: 2 mg Promethazine HCl/Codeine (Phenergan/Codeine Oral Syrup) 5 ml PO Q4 PRN PRN Reason: Cough Last Admin: 11/16/16 13:24 Dose: 5 ml Saccharomyces Boulardii (Florastor) 500 mg PO BID [facility] Last Admin: 11/18/16 17:43 Dose: 500 mg Vancomycin HCl (Vancocin (Oral Or Rectal Use)) 125 mg PO Q6 [facility] Last Admin: 11/18/16 17:50 Dose: 125 mg - Labs Labs: 11/17/16 08:41 11/17/16 08:41 PT 15.8 SECONDS (9.7-12.2) H 11/17/16 08:41 INR 1.4 11/17/16 08:41 APTT 32 SECONDS (21-34) 11/17/16 08:41 - Constitutional Appears: Non-toxic, No Acute Distress - Head Exam Head Exam: NORMAL INSPECTION - Eye Exam Eye Exam: Normal appearance - ENT Exam ENT Exam: Mucous Membranes Moist - Neck Exam Neck Exam: Normal Inspection - Respiratory Exam Respiratory Exam: Chest Wall Tenderness, Decreased Breath Sounds, NORMAL BREATHING PATTERN - Cardiovascular Exam Cardiovascular Exam: REGULAR RHYTHM - GI/Abdominal Exam GI & Abdominal Exam: Soft, Normal Bowel Sounds. absent: Tenderness - Rectal Exam Rectal Exam: Deferred - Extremities Exam Extremities Exam: Full ROM, Tenderness - Neurological Exam Neurological Exam: Alert, Awake - Psychiatric Exam Psychiatric exam: Normal Affect, Normal Mood - Skin Skin Exam: Warm Assessment and Plan (1) Empyema Status: Acute (2) Pneumonia Status: Acute (3) Pleural effusion on right Status: Acute (4) Bilateral lower extremity edema Status: Resolved (5) Anemia Status: Chronic (6) Hyperglycemia Status: Acute (7) HTN (hypertension) Status: Chronic (8) Diarrhea Status: Acute
[2016-11-18 19:52] LABS: BASO % 0.5 % (0.0-2.0); HEMATOCRIT 21.6 % (35.0-51.0); LYMPH # 1.2 K/uL (1.0-4.3); LYMPH % 24.2 % (20.0-40.0); MEAN CELL VOLUME 82.4 fL (80.0-94.0); MEAN CORPUSCULAR HEMOGLOBIN 26.4 pg (27.0-31.0); MEAN PLATELET VOLUME 9.1 fL (7.2-11.7); MONO # 0.6 K/uL (0.0-0.8); MONO % 11.9 % (0.0-10.0); NRBC % 0.1 % (0.0-2.0); RED CELL DISTRIBUTION WIDTH 15.7 % (11.5-14.5); WHITE BLOOD COUNT 4.8 K/uL (4.8-10.8)
--- NOTE | 2016-11-18 21:29 | CP.PCM.PN ---
Subjective - Date & Time of Evaluation Date of Evaluation: 11/18/16 Time of Evaluation: 21:29 - Subjective Subjective: Pigtail catheter placed. Draining significant amount of fluid blood-tinged. But the pigtail was placed in the low your back on the infrascapular region. Complaining of pain in currently. No fever or chills noted. Denies any nausea vomiting. Not able to lie down because of the pain Objective - Vital Signs/Intake and Output Vital Signs (last 24 hours): Temp Pulse Resp BP Pulse Ox 98.8 F 91 H 18 154/84 H 99 11/18/16 15:50 11/18/16 15:50 11/18/16 15:50 11/18/16 15:50 11/18/16 15:50 Intake and Output: 11/18/16 11/19/16 18:59 06:59 Intake Total 500 Output Total 131 Balance 369 Chest good air entry, regular heart sound, nontender abdomen, glucose is better - Medications Medications: Current Medications Albuterol/Ipratropium (Duoneb 3 Mg/0.5 Mg (3 Ml) Ud) 3 ml INH RQ6 [facility] Last Admin: 11/18/16 13:43 Dose: Not Given Famotidine (Pepcid) 20 mg PO DAILY [facility] Last Admin: 11/18/16 09:45 Dose: 20 mg Glipizide (Glucotrol) 2.5 mg PO DAILY [facility] Last Admin: 11/18/16 09:45 Dose: 2.5 mg Imipenem/Cilastatin Sodium 1, (000 mg/ Sodium Chloride) 250 mls @ 250 mls/hr IVPB Q8H [facility] Last Admin: 11/18/16 16:15 Dose: 250 mls/hr Metronidazole (Flagyl) 500 mg in 100 mls @ 100 mls/hr IVPB Q8 [facility] Last Admin: 11/18/16 14:00 Dose: 100 mls/hr Insulin Aspart (Novolog) 0 unit SC ACHS [facility] PRN Reason: Protocol Last Admin: 11/18/16 17:43 Dose: 10 unit Insulin Detemir (Levemir) 40 unit SC Q12 [facility] Last Admin: 11/18/16 09:46 Dose: 40 unit Ketorolac Tromethamine (Toradol) 15 mg IVP Q6 PRN PRN Reason: Pain, moderate (4-7) Last Admin: 11/18/16 20:02 Dose: 15 mg Lisinopril (Zestril) 20 mg PO DAILY [facility] Last Admin: 11/18/16 09:45 Dose: 20 mg Metoprolol Tartrate (Lopressor) 50 mg PO Q12H [facility] Last Admin: 11/18/16 08:04 Dose: 50 mg Morphine Sulfate (Morphine) 2 mg IVP Q4 PRN PRN Reason: Pain, moderate (4-7) Last Admin: 11/18/16 18:23 Dose: 2 mg Promethazine HCl/Codeine (Phenergan/Codeine Oral Syrup) 5 ml PO Q4 PRN PRN Reason: Cough Last Admin: 11/16/16 13:24 Dose: 5 ml Saccharomyces Boulardii (Florastor) 500 mg PO BID [facility] Last Admin: 11/18/16 17:43 Dose: 500 mg Vancomycin HCl (Vancocin (Oral Or Rectal Use)) 125 mg PO Q6 [facility] Last Admin: 11/18/16 17:50 Dose: 125 mg - Labs Labs: 11/18/16 19:47 11/17/16 08:41 PT 15.8 SECONDS (9.7-12.2) H 11/17/16 08:41 INR 1.4 11/17/16 08:41 APTT 32 SECONDS (21-34) 11/17/16 08:41 Assessment and Plan - Assessment and Plan (Free Text) Assessment: Patient with the pneumonia, empyema, status post chest tube. Still not improving. On IV antibiotic, multiple intervention with the chest tube, pads, and the pigtail catheter. We'll continue the antibiotic, hemoglobin monitoring. May need transfusion and will follow the patient
[2016-11-19] MEDS: Vancomycin 125 MG/5 ML SOLN (ORAL/RECTAL) PO SCH ×4 (00:45→17:27)
[2016-11-19] MEDS: Albuterol-Ipratrop 3 mg / 0.5 (3 ml) UD INH SCH ×3 (01:57→13:09)
[2016-11-19] MEDS: metroNIDAZOLE IV 500 mg/100 ml 500 MG/100 ML BAG IVPB SCH ×3 (05:14→21:41)
--- NOTE | 2016-11-19 07:25 | CP.PCM.PN ---
Subjective - Date & Time of Evaluation Date of Evaluation: 11/19/16 Time of Evaluation: 07:15 - Subjective Subjective: tolerating po pain at chest tube site Objective - Vital Signs/Intake and Output Vital Signs (last 24 hours): Temp Pulse Resp BP Pulse Ox 97.9 F 85 16 165/100 H 99 11/19/16 04:45 11/19/16 04:45 11/19/16 04:45 11/19/16 04:45 11/18/16 23:50 Intake and Output: 11/19/16 11/19/16 06:59 18:59 Intake Total 330 Output Total 40 Balance 290 - Medications Medications: Current Medications Albuterol/Ipratropium (Duoneb 3 Mg/0.5 Mg (3 Ml) Ud) 3 ml INH RQ6 [facility] Last Admin: 11/19/16 01:57 Dose: Not Given Famotidine (Pepcid) 20 mg PO DAILY [facility] Last Admin: 11/18/16 09:45 Dose: 20 mg Glipizide (Glucotrol) 2.5 mg PO DAILY [facility] Last Admin: 11/18/16 09:45 Dose: 2.5 mg Imipenem/Cilastatin Sodium 1, (000 mg/ Sodium Chloride) 250 mls @ 250 mls/hr IVPB Q8H [facility] Last Admin: 11/19/16 07:11 Dose: 250 mls/hr Metronidazole (Flagyl) 500 mg in 100 mls @ 100 mls/hr IVPB Q8 [facility] Last Admin: 11/19/16 05:14 Dose: 100 mls/hr Insulin Aspart (Novolog) 0 unit SC ACHS [facility] PRN Reason: Protocol Last Admin: 11/18/16 22:00 Dose: Not Given Insulin Detemir (Levemir) 40 unit SC Q12 [facility] Last Admin: 11/18/16 22:00 Dose: Not Given Ketorolac Tromethamine (Toradol) 15 mg IVP Q6 PRN PRN Reason: Pain, moderate (4-7) Last Admin: 11/18/16 20:02 Dose: 15 mg Lisinopril (Zestril) 20 mg PO DAILY [facility] Last Admin: 11/18/16 09:45 Dose: 20 mg Metoprolol Tartrate (Lopressor) 50 mg PO Q12H [facility] Last Admin: 11/18/16 20:50 Dose: 50 mg Morphine Sulfate (Morphine) 2 mg IVP Q4 PRN PRN Reason: Pain, moderate (4-7) Last Admin: 11/19/16 06:06 Dose: 2 mg Promethazine HCl/Codeine (Phenergan/Codeine Oral Syrup) 5 ml PO Q4 PRN PRN Reason: Cough Last Admin: 11/16/16 13:24 Dose: 5 ml Saccharomyces Boulardii (Florastor) 500 mg PO BID [facility] Last Admin: 11/18/16 17:43 Dose: 500 mg Vancomycin HCl (Vancocin (Oral Or Rectal Use)) 125 mg PO Q6 [facility] Last Admin: 11/19/16 06:07 Dose: 125 mg - Labs Labs: 11/18/16 19:47 11/17/16 08:41 PT 15.8 SECONDS (9.7-12.2) H 11/17/16 08:41 INR 1.4 11/17/16 08:41 APTT 32 SECONDS (21-34) 11/17/16 08:41 - Constitutional Appears: Well - Head Exam Head Exam: ATRAUMATIC, NORMOCEPHALIC - Eye Exam Eye Exam: Normal appearance - ENT Exam ENT Exam: Mucous Membranes Moist - Respiratory Exam Respiratory Exam: Rales - Cardiovascular Exam Cardiovascular Exam: REGULAR RHYTHM - GI/Abdominal Exam GI & Abdominal Exam: Soft, Normal Bowel Sounds - Exam External exam: NORMAL EXTERNAL EXAM - Extremities Exam Extremities Exam: Normal Inspection - Neurological Exam Neurological Exam: Alert - Psychiatric Exam Psychiatric exam: Normal Affect - Skin Skin Exam: Warm Assessment and Plan (1) HTN (hypertension) Assessment & Plan: will need pain control and diuresis to help bp Status: Chronic
[2016-11-19] MEDS: (Novolog) Insulin Aspart, Recombinant 100 u/ml 10 ml vial SC SCH ×4 (08:01→22:00)
[2016-11-19 08:51] LABS: BASO % 0.3 % (0.0-2.0); EOS % 0.8 % (0.0-4.0); HEMATOCRIT 26.5 % (35.0-51.0); LYMPH % 33.5 % (20.0-40.0); MEAN CELL VOLUME 82.4 fL (80.0-94.0); MEAN CORPUSCULAR HEMOGLOBIN 26.7 pg (27.0-31.0); MEAN CORPUSCULAR HGB CONC 32.4 g/dL (33.0-37.0); MEAN PLATELET VOLUME 9.2 fL (7.2-11.7); MONO # 0.7 K/uL (0.0-0.8); MONO % 10.7 % (0.0-10.0); RED CELL DISTRIBUTION WIDTH 15.8 % (11.5-14.5); WHITE BLOOD COUNT 6.1 K/uL (4.8-10.8)
--- NOTE | 2016-11-19 08:51 | CP.PCM.PN ---
Subjective - Date & Time of Evaluation Date of Evaluation: 11/19/16 Time of Evaluation: 07:00 - Subjective Subjective: THORACIC SURGERY PROGRESS NOTE FOR DR. AYERS Patient seen and examined at bedside. He denies SOB. Still reports pain at the chest tube site. He is tolerating his diet. I removed the packing, painted the incision with betadine, irrigated wound with saline, and repacked with iodaform. Objective - Vital Signs/Intake and Output Vital Signs (last 24 hours): Temp Pulse Resp BP Pulse Ox 97.4 F L 84 20 138/86 100 11/19/16 07:00 11/19/16 07:00 11/19/16 07:00 11/19/16 07:00 11/19/16 07:00 Intake and Output: 11/19/16 11/19/16 06:59 18:59 Intake Total 330 Output Total 40 Balance 290 - Medications Medications: Current Medications Albuterol/Ipratropium (Duoneb 3 Mg/0.5 Mg (3 Ml) Ud) 3 ml INH RQ6 [facility] Last Admin: 11/19/16 08:32 Dose: 3 ml Famotidine (Pepcid) 20 mg PO DAILY [facility] Last Admin: 11/18/16 09:45 Dose: 20 mg Glipizide (Glucotrol) 2.5 mg PO DAILY [facility] Last Admin: 11/18/16 09:45 Dose: 2.5 mg Imipenem/Cilastatin Sodium 1, (000 mg/ Sodium Chloride) 250 mls @ 250 mls/hr IVPB Q8H [facility] Last Admin: 11/19/16 07:11 Dose: 250 mls/hr Metronidazole (Flagyl) 500 mg in 100 mls @ 100 mls/hr IVPB Q8 [facility] Last Admin: 11/19/16 05:14 Dose: 100 mls/hr Insulin Aspart (Novolog) 0 unit SC ACHS [facility] PRN Reason: Protocol Last Admin: 11/19/16 08:01 Dose: Not Given Insulin Detemir (Levemir) 40 unit SC Q12 [facility] Last Admin: 11/18/16 22:00 Dose: Not Given Ketorolac Tromethamine (Toradol) 15 mg IVP Q6 PRN PRN Reason: Pain, moderate (4-7) Last Admin: 11/19/16 08:07 Dose: 15 mg Lisinopril (Zestril) 20 mg PO DAILY [facility] Last Admin: 11/18/16 09:45 Dose: 20 mg Metoprolol Tartrate (Lopressor) 50 mg PO Q12H [facility] Last Admin: 11/19/16 08:07 Dose: 50 mg Morphine Sulfate (Morphine) 2 mg IVP Q4 PRN PRN Reason: Pain, moderate (4-7) Last Admin: 11/19/16 06:06 Dose: 2 mg Promethazine HCl/Codeine (Phenergan/Codeine Oral Syrup) 5 ml PO Q4 PRN PRN Reason: Cough Last Admin: 11/16/16 13:24 Dose: 5 ml Saccharomyces Boulardii (Florastor) 500 mg PO BID [facility] Last Admin: 11/18/16 17:43 Dose: 500 mg Vancomycin HCl (Vancocin (Oral Or Rectal Use)) 125 mg PO Q6 [facility] Last Admin: 11/19/16 06:07 Dose: 125 mg - Labs Labs: 11/18/16 19:47 11/17/16 08:41 PT 15.8 SECONDS (9.7-12.2) H 11/17/16 08:41 INR 1.4 11/17/16 08:41 APTT 32 SECONDS (21-34) 11/17/16 08:41 - Constitutional Appears: Non-toxic, No Acute Distress - Head Exam Head Exam: NORMAL INSPECTION - Eye Exam Eye Exam: EOMI, Normal appearance - Respiratory Exam Respiratory Exam: NORMAL BREATHING PATTERN. absent: Respiratory Distress Additional comments: Right chest tube on suction, 10cc new output over past 24 hours No air leak Dressing with some drainage - changed Incision site with iodaform packing in place IR drain in place on suction with 70cc drainage over past 24 hours - Cardiovascular Exam Cardiovascular Exam: +S1, +S2 - Neurological Exam Neurological Exam: Alert, Awake, Oriented x3 - Psychiatric Exam Psychiatric exam: Normal Affect, Normal Mood - Skin Skin Exam: Normal Color, Warm Assessment and Plan - Assessment and Plan (Free Text) Assessment: 40M w. R parapneumonic effusion, s/p VATS converted to thoracotomy, w/ decortication and wedge resection POD#16 s/p IR CT guided pigtail placement on - Afebrile, VSS - Hemoglobin 6.9 last night, given a unit of PRBC, Hgb 8.6 today - Daily CXR - Chest tube on right on suction, no air leak, 10cc new output over past 24 hours - IR pigtail catheter in place with 70cc drainage over past 24 hours - 11/13 Pleural fluid cx: no growth final - 11/17 Pleural fluid from IR: cx w/ no growth @ 2 days - Will follow up wound cx taken yesterday from right chest incision - Iodaform packing changes BID - Dressing changes PRN - Will remove chest tube Monday - Discussed plan with Dr. Hernando Avalos PGy-2
[2016-11-19 09:15] LABS: CHLORIDE 96 mmol/L (98-107); SODIUM 131 mmol/L (132-148)
--- NOTE | 2016-11-19 09:15 | RAD ---
HISTORY: right chest tube COMPARISON: Comparison is made to 11/18/2016 FINDINGS: LUNGS: Heterogeneous opacity at the right lower lung. PLEURA: Drainage catheter seen extending to the right lower chest. There is a right-sided chest C tube again seen in place. CARDIOVASCULAR: Normal. OSSEOUS STRUCTURES: No significant abnormalities. VISUALIZED UPPER ABDOMEN: Normal. OTHER FINDINGS: None. IMPRESSION: No significant interval change since the previous study.
[2016-11-19 09:17] LABS: GFR AFRICAN-AMERICAN > 60
[2016-11-19 09:18] LABS: BLOOD UREA NITROGEN 13 mg/dL (9-20); CALCIUM 7.8 mg/dl (8.6-10.4); CARBON DIOXIDE 26 mmol/L (22-30); GLUCOSE,RANDOM 141 mg/dL (75-110)
[2016-11-19] MEDS: Insulin Detemir 100 units/ml Vial (Levemir) SC SCH ×2 (10:50→22:00)
[2016-11-19] MEDS: GlipiZIDE 2.5 mg Tab PO SCH (10:50)
[2016-11-19] MEDS: Saccharomyces Boulardi 250 mg Cap PO SCH ×2 (12:00→17:26)
--- NOTE | 2016-11-19 12:12 | CP.PCM.PN ---
Subjective - Date & Time of Evaluation Date of Evaluation: 11/19/16 Time of Evaluation: 12:06 - Subjective Subjective: INFECTIOUS DISEASE PROGRESS NOTE MARIA DIAZ MD, FACP 6T 671-B 11/19/2016 CHART REVIEWED PT EXAMINED CASE DISCUSSED CLINICALLY WITH RIGHT SIGNED SURGICAL SITE PAIN, AFEBRILE, STILL ANEMIC. STARTED EMPIRIC FOLIC ACID, REINFORM HEME TO WHAT SHOULD BE THE NEXT PLAN, IF ANY. REPEAT CT NEXT WEEK, CONSIDER [facility]. Objective - Vital Signs/Intake and Output Vital Signs (last 24 hours): Temp Pulse Resp BP Pulse Ox 97.4 F L 84 20 138/86 100 11/19/16 07:00 11/19/16 07:00 11/19/16 07:00 11/19/16 07:00 11/19/16 07:00 Intake and Output: 11/19/16 11/19/16 06:59 18:59 Intake Total 330 Output Total 40 Balance 290 - Medications Medications: Current Medications Albuterol/Ipratropium (Duoneb 3 Mg/0.5 Mg (3 Ml) Ud) 3 ml INH RQ6 [facility] Last Admin: 11/19/16 08:32 Dose: 3 ml Famotidine (Pepcid) 20 mg PO DAILY [facility] Last Admin: 11/19/16 10:50 Dose: 20 mg Folic Acid (Folic Acid) 1 mg PO DAILY [facility] Last Admin: 11/19/16 12:01 Dose: 1 mg Glipizide (Glucotrol) 2.5 mg PO DAILY [facility] Last Admin: 11/19/16 10:50 Dose: 2.5 mg Imipenem/Cilastatin Sodium 1, (000 mg/ Sodium Chloride) 250 mls @ 250 mls/hr IVPB Q8H [facility] Last Admin: 11/19/16 07:11 Dose: 250 mls/hr Metronidazole (Flagyl) 500 mg in 100 mls @ 100 mls/hr IVPB Q8 [facility] Last Admin: 11/19/16 05:14 Dose: 100 mls/hr Insulin Aspart (Novolog) 0 unit SC ACHS [facility] PRN Reason: Protocol Last Admin: 11/19/16 12:02 Dose: 8 unit Insulin Detemir (Levemir) 40 unit SC Q12 [facility] Last Admin: 11/19/16 10:50 Dose: 40 unit Ketorolac Tromethamine (Toradol) 15 mg IVP Q6 PRN PRN Reason: Pain, moderate (4-7) Last Admin: 11/19/16 08:07 Dose: 15 mg Lisinopril (Zestril) 20 mg PO DAILY [facility] Last Admin: 11/19/16 10:50 Dose: 20 mg Metoprolol Tartrate (Lopressor) 50 mg PO Q12H [facility] Last Admin: 11/19/16 08:07 Dose: 50 mg Morphine Sulfate (Morphine) 2 mg IVP Q4 PRN PRN Reason: Pain, moderate (4-7) Last Admin: 11/19/16 12:02 Dose: 2 mg Promethazine HCl/Codeine (Phenergan/Codeine Oral Syrup) 5 ml PO Q4 PRN PRN Reason: Cough Last Admin: 11/16/16 13:24 Dose: 5 ml Saccharomyces Boulardii (Florastor) 500 mg PO BID [facility] Last Admin: 11/19/16 12:00 Dose: 500 mg Vancomycin HCl (Vancocin (Oral Or Rectal Use)) 125 mg PO Q6 [facility] Last Admin: 11/19/16 12:01 Dose: 125 mg - Labs Labs: 11/19/16 08:30 11/19/16 08:30 PT 15.8 SECONDS (9.7-12.2) H 11/17/16 08:41 INR 1.4 11/17/16 08:41 APTT 32 SECONDS (21-34) 11/17/16 08:41 - Constitutional Appears: Non-toxic, In Acute Distress, Other (UNCOMFORTABLE FROM THE SURGICAL SITE NOW-PAIN BOWLES, WATCH FOR 2ND INFECTION.) - Head Exam Head Exam: ATRAUMATIC - Eye Exam Eye Exam: Normal appearance - ENT Exam ENT Exam: Mucous Membranes Moist - Respiratory Exam Respiratory Exam: Decreased Breath Sounds, NORMAL BREATHING PATTERN - Cardiovascular Exam Cardiovascular Exam: REGULAR RHYTHM - GI/Abdominal Exam GI & Abdominal Exam: Soft, Normal Bowel Sounds. absent: Tenderness - Rectal Exam Rectal Exam: Deferred - Neurological Exam Neurological Exam: Alert, Awake - Psychiatric Exam Psychiatric exam: Depressed, Normal Affect - Skin Skin Exam: Warm Assessment and Plan (1) Empyema Status: Acute (2) Pneumonia Status: Acute (3) Pleural effusion on right Status: Acute (4) Bilateral lower extremity edema Status: Resolved (5) Anemia Status: Chronic (6) Hyperglycemia Status: Acute (7) HTN (hypertension) Status: Chronic (8) Diarrhea Status: Acute
[2016-11-19] MEDS: HYDROmorphone 1 mg/ml ISec IVP PRN (21:39)
[2016-11-20] MEDS: Vancomycin 125 MG/5 ML SOLN (ORAL/RECTAL) PO SCH ×5 (00:43→23:45)
[2016-11-20] MEDS: HYDROmorphone 1 mg/ml ISec IVP PRN ×4 (02:17→19:48)
[2016-11-20] MEDS: metroNIDAZOLE IV 500 mg/100 ml 500 MG/100 ML BAG IVPB SCH ×3 (05:20→22:25)
--- NOTE | 2016-11-20 07:19 | CP.PCM.PN ---
Subjective - Date & Time of Evaluation Date of Evaluation: 11/20/16 Time of Evaluation: 07:15 - Subjective Subjective: tolerating po stable ambulating Objective - Vital Signs/Intake and Output Vital Signs (last 24 hours): Temp Pulse Resp BP Pulse Ox 98.4 F 86 20 133/80 97 11/20/16 00:50 11/20/16 00:50 11/20/16 00:50 11/20/16 00:50 11/20/16 00:50 Intake and Output: 11/20/16 11/20/16 06:59 18:59 Output Total 20 Balance -20 - Medications Medications: Current Medications Famotidine (Pepcid) 20 mg PO DAILY [facility] Last Admin: 11/19/16 10:50 Dose: 20 mg Folic Acid (Folic Acid) 1 mg PO DAILY [facility] Last Admin: 11/19/16 12:01 Dose: 1 mg Glipizide (Glucotrol) 2.5 mg PO DAILY [facility] Last Admin: 11/19/16 10:50 Dose: 2.5 mg Hydromorphone HCl (Dilaudid) 1 mg IVP Q4H PRN PRN Reason: Pain, moderate (4-7) Last Admin: 11/20/16 02:17 Dose: 1 mg Imipenem/Cilastatin Sodium 1, (000 mg/ Sodium Chloride) 250 mls @ 250 mls/hr IVPB Q8H [facility] Last Admin: 11/20/16 00:42 Dose: 250 mls/hr Metronidazole (Flagyl) 500 mg in 100 mls @ 100 mls/hr IVPB Q8 [facility] Last Admin: 11/20/16 05:20 Dose: 100 mls/hr Insulin Aspart (Novolog) 0 unit SC ACHS [facility] PRN Reason: Protocol Last Admin: 11/19/16 22:00 Dose: Not Given Insulin Detemir (Levemir) 40 unit SC Q12 [facility] Last Admin: 11/19/16 22:00 Dose: Not Given Lisinopril (Zestril) 20 mg PO DAILY [facility] Last Admin: 11/19/16 10:50 Dose: 20 mg Metoprolol Tartrate (Lopressor) 50 mg PO Q12H [facility] Last Admin: 11/19/16 21:30 Dose: 50 mg Promethazine HCl/Codeine (Phenergan/Codeine Oral Syrup) 5 ml PO Q4 PRN PRN Reason: Cough Last Admin: 11/16/16 13:24 Dose: 5 ml Saccharomyces Boulardii (Florastor) 500 mg PO BID [facility] Last Admin: 11/19/16 17:26 Dose: 500 mg Vancomycin HCl (Vancocin (Oral Or Rectal Use)) 125 mg PO Q6 [facility] Last Admin: 11/20/16 05:49 Dose: 125 mg - Labs Labs: 11/19/16 08:30 11/19/16 08:30 PT 15.8 SECONDS (9.7-12.2) H 11/17/16 08:41 INR 1.4 11/17/16 08:41 APTT 32 SECONDS (21-34) 11/17/16 08:41 - Constitutional Appears: Well, No Acute Distress - Head Exam Head Exam: ATRAUMATIC - Eye Exam Eye Exam: Normal appearance - ENT Exam ENT Exam: Mucous Membranes Moist - Respiratory Exam Respiratory Exam: NORMAL BREATHING PATTERN - Cardiovascular Exam Cardiovascular Exam: REGULAR RHYTHM - GI/Abdominal Exam GI & Abdominal Exam: Normal Bowel Sounds - Extremities Exam Extremities Exam: Normal Inspection - Neurological Exam Neurological Exam: Alert - Psychiatric Exam Psychiatric exam: Normal Affect - Skin Skin Exam: Normal Color Assessment and Plan (1) Tachycardia Assessment & Plan: less tachycardia in better spirits cotinue ambulation and dvt prophylaxis Status: Resolved
[2016-11-20] MEDS: Saccharomyces Boulardi 250 mg Cap PO SCH ×2 (09:12→18:36)
[2016-11-20] MEDS: (Novolog) Insulin Aspart, Recombinant 100 u/ml 10 ml vial SC SCH ×5 (09:13→22:00)
[2016-11-20] MEDS: Insulin Detemir 100 units/ml Vial (Levemir) SC SCH ×2 (09:14→22:00)
[2016-11-20] MEDS: GlipiZIDE 2.5 mg Tab PO SCH (11:04)
--- NOTE | 2016-11-20 11:20 | CP.PCM.PN ---
Subjective - Date & Time of Evaluation Date of Evaluation: 11/20/16 Time of Evaluation: 07:00 - Subjective Subjective: THORACIC SURGERY PROGRESS NOTE FOR DR. AYERS Patient seen and examined at bedside. He denies SOB. Still reports pain at the chest tube site. He is tolerating his diet. I removed the packing, painted the incision with betadine, irrigated wound with saline, and repacked with iodaform. Changed chest tube dressing. Objective - Vital Signs/Intake and Output Vital Signs (last 24 hours): Temp Pulse Resp BP Pulse Ox 98.4 F 86 20 133/80 97 11/20/16 00:50 11/20/16 00:50 11/20/16 00:50 11/20/16 00:50 11/20/16 00:50 Intake and Output: 11/20/16 11/20/16 06:59 18:59 Output Total 20 Balance -20 - Medications Medications: Current Medications Famotidine (Pepcid) 20 mg PO DAILY [facility] Last Admin: 11/20/16 09:12 Dose: 20 mg Folic Acid (Folic Acid) 1 mg PO DAILY [facility] Last Admin: 11/20/16 09:12 Dose: 1 mg Glipizide (Glucotrol) 2.5 mg PO DAILY [facility] Last Admin: 11/20/16 11:04 Dose: 2.5 mg Hydromorphone HCl (Dilaudid) 1 mg IVP Q4H PRN PRN Reason: Pain, moderate (4-7) Last Admin: 11/20/16 09:15 Dose: 1 mg Imipenem/Cilastatin Sodium 1, (000 mg/ Sodium Chloride) 250 mls @ 250 mls/hr IVPB Q8H [facility] Last Admin: 11/20/16 09:13 Dose: 250 mls/hr Metronidazole (Flagyl) 500 mg in 100 mls @ 100 mls/hr IVPB Q8 [facility] Last Admin: 11/20/16 05:20 Dose: 100 mls/hr Insulin Aspart (Novolog) 0 unit SC ACHS [facility] PRN Reason: Protocol Last Admin: 11/20/16 09:13 Dose: 4 unit Insulin Detemir (Levemir) 40 unit SC Q12 [facility] Last Admin: 11/20/16 09:14 Dose: 40 unit Lisinopril (Zestril) 20 mg PO DAILY [facility] Last Admin: 11/20/16 09:12 Dose: 20 mg Metoprolol Tartrate (Lopressor) 50 mg PO Q12H [facility] Last Admin: 11/20/16 09:24 Dose: 50 mg Promethazine HCl/Codeine (Phenergan/Codeine Oral Syrup) 5 ml PO Q4 PRN PRN Reason: Cough Last Admin: 11/16/16 13:24 Dose: 5 ml Saccharomyces Boulardii (Florastor) 500 mg PO BID [facility] Last Admin: 11/20/16 09:12 Dose: 500 mg Vancomycin HCl (Vancocin (Oral Or Rectal Use)) 125 mg PO Q6 [facility] Last Admin: 11/20/16 05:49 Dose: 125 mg - Labs Labs: 11/19/16 08:30 11/19/16 08:30 PT 15.8 SECONDS (9.7-12.2) H 11/17/16 08:41 INR 1.4 11/17/16 08:41 APTT 32 SECONDS (21-34) 11/17/16 08:41 - Constitutional Appears: Non-toxic, No Acute Distress - Respiratory Exam Respiratory Exam: NORMAL BREATHING PATTERN. absent: Respiratory Distress Additional comments: Right chest tube on suction, 5cc new output over past 24 hours No air leak Dressing with some drainage - changed Incision site with iodaform packing in place IR drain in place on suction with 50cc drainage over past 24 hours - Cardiovascular Exam Cardiovascular Exam: +S1, +S2 - Neurological Exam Neurological Exam: Alert, Awake, Oriented x3 - Psychiatric Exam Psychiatric exam: Normal Affect, Normal Mood - Skin Skin Exam: Dry, Normal Color Assessment and Plan - Assessment and Plan (Free Text) Assessment: 40M w. R parapneumonic effusion, s/p VATS converted to thoracotomy, w/ decortication and wedge resection POD#17 s/p IR CT guided pigtail placement on - Afebrile, VSS - Will FU AM labs - Daily CXR - Chest tube on right on suction, no air leak, 5cc new output over past 24 hours - IR pigtail catheter in place with 50cc drainage over past 24 hours - 11/13 Pleural fluid cx: no growth final - 11/17 Pleural fluid from IR: cx w/ no growth @ 3 days - 11/18 Incision site cx: no growth @ prelim read - Iodaform packing changes BID - Dressing changes PRN - Will remove chest tube Monday - Discussed plan with Dr. Hernando Avalos PGy-2
--- NOTE | 2016-11-20 12:50 | RAD ---
HISTORY: right chest tube COMPARISON: Comparison is made to the previous study dated 11/19/2016 FINDINGS: LUNGS: No significant interval change in the lungs noted since the previous exam. PLEURA: Right-sided chest tube and pigtail drainage catheter in the right lower chest are again seen. CARDIOVASCULAR: Normal. OSSEOUS STRUCTURES: No significant abnormalities. VISUALIZED UPPER ABDOMEN: Normal. OTHER FINDINGS: None. IMPRESSION: No significant interval change since the previous exam.
--- NOTE | 2016-11-20 18:23 | CP.PCM.PN ---
Subjective - Date & Time of Evaluation Date of Evaluation: 11/19/16 Time of Evaluation: 18:23 - Subjective Subjective: Patient was very upset today. He was given no warning when they were placing venous line. And he got extremely upset with that. He also received a blood transfusion 1 unit. Hemoglobin was 6.7 prior to that. This morning he is feeling slightly better, but having some upset because of that. Complaining of increasing pain. The blood sugar is slightly on the low side. No nausea vomiting today, diarrhea is negative, right leg minimal swelling noted Objective - Vital Signs/Intake and Output Vital Signs (last 24 hours): Temp Pulse Resp BP Pulse Ox 99.1 F 80 20 129/79 98 11/20/16 16:00 11/20/16 16:00 11/20/16 16:00 11/20/16 16:00 11/20/16 16:00 Intake and Output: 11/20/16 11/20/16 06:59 18:59 Intake Total 1050 Output Total 20 15 Balance -20 1035 Chest good air entry, regular heart sound, nontender abdomen, edema negative - Medications Medications: Current Medications Famotidine (Pepcid) 20 mg PO DAILY [facility] Last Admin: 11/20/16 09:12 Dose: 20 mg Folic Acid (Folic Acid) 1 mg PO DAILY [facility] Last Admin: 11/20/16 09:12 Dose: 1 mg Glipizide (Glucotrol) 2.5 mg PO DAILY [facility] Last Admin: 11/20/16 11:04 Dose: 2.5 mg Hydromorphone HCl (Dilaudid) 1 mg IVP Q4H PRN PRN Reason: Pain, moderate (4-7) Last Admin: 11/20/16 14:43 Dose: 1 mg Imipenem/Cilastatin Sodium 1, (000 mg/ Sodium Chloride) 250 mls @ 250 mls/hr IVPB Q8H [facility] Last Admin: 11/20/16 16:24 Dose: 250 mls/hr Metronidazole (Flagyl) 500 mg in 100 mls @ 100 mls/hr IVPB Q8 [facility] Last Admin: 11/20/16 13:01 Dose: 100 mls/hr Insulin Aspart (Novolog) 0 unit SC ACHS [facility] PRN Reason: Protocol Last Admin: 11/20/16 13:00 Dose: 6 unit Insulin Detemir (Levemir) 40 unit SC Q12 [facility] Last Admin: 11/20/16 09:14 Dose: 40 unit Lisinopril (Zestril) 20 mg PO DAILY [facility] Last Admin: 11/20/16 09:12 Dose: 20 mg Metoprolol Tartrate (Lopressor) 50 mg PO Q12H [facility] Last Admin: 11/20/16 09:24 Dose: 50 mg Promethazine HCl/Codeine (Phenergan/Codeine Oral Syrup) 5 ml PO Q4 PRN PRN Reason: Cough Last Admin: 11/16/16 13:24 Dose: 5 ml Saccharomyces Boulardii (Florastor) 500 mg PO BID [facility] Last Admin: 11/20/16 09:12 Dose: 500 mg Vancomycin HCl (Vancocin (Oral Or Rectal Use)) 125 mg PO Q6 [facility] Last Admin: 11/20/16 13:00 Dose: 125 mg - Labs Labs: 11/19/16 08:30 11/19/16 08:30 PT 15.8 SECONDS (9.7-12.2) H 11/17/16 08:41 INR 1.4 11/17/16 08:41 APTT 32 SECONDS (21-34) 11/17/16 08:41 Assessment and Plan - Assessment and Plan (Free Text) Assessment: Patient with empyema, pneumonia, on broad-spectrum antibiotic. Status post VATS, chest tube. Pigtail insertion on the right side. Anemia of chronic disease and receiving blood transfusion
--- NOTE | 2016-11-20 18:27 | CP.PCM.PN ---
Subjective - Date & Time of Evaluation Date of Evaluation: 11/20/16 Time of Evaluation: 18:25 - Subjective Subjective: Patient today feeling slightly better. His pain medication was changed to diludid, after that he started having some nausea. No diarrhea noted, abdominal distention negative. He had eating okay, minimal nausea noted. Pain is better now. No other major active symptoms. I explained to the patient regarding the planned tomorrow. X-ray which was done today showing no new changes. The pigtail and the chest tube in place Objective - Vital Signs/Intake and Output Vital Signs (last 24 hours): Temp Pulse Resp BP Pulse Ox 99.1 F 80 20 129/79 98 11/20/16 16:00 11/20/16 16:00 11/20/16 16:00 11/20/16 16:00 11/20/16 16:00 Intake and Output: 11/20/16 11/20/16 06:59 18:59 Intake Total 1050 Output Total 20 15 Balance -20 1035 Chest good air entry. Regular heart sound. Right-sided chest tube noted. The wound over the surgical site cleaned by the surgical team today. Packing was done - Medications Medications: Current Medications Famotidine (Pepcid) 20 mg PO DAILY [facility] Last Admin: 11/20/16 09:12 Dose: 20 mg Folic Acid (Folic Acid) 1 mg PO DAILY [facility] Last Admin: 11/20/16 09:12 Dose: 1 mg Glipizide (Glucotrol) 2.5 mg PO DAILY [facility] Last Admin: 11/20/16 11:04 Dose: 2.5 mg Hydromorphone HCl (Dilaudid) 1 mg IVP Q4H PRN PRN Reason: Pain, moderate (4-7) Last Admin: 11/20/16 14:43 Dose: 1 mg Imipenem/Cilastatin Sodium 1, (000 mg/ Sodium Chloride) 250 mls @ 250 mls/hr IVPB Q8H [facility] Last Admin: 11/20/16 16:24 Dose: 250 mls/hr Metronidazole (Flagyl) 500 mg in 100 mls @ 100 mls/hr IVPB Q8 [facility] Last Admin: 11/20/16 13:01 Dose: 100 mls/hr Insulin Aspart (Novolog) 0 unit SC ACHS [facility] PRN Reason: Protocol Last Admin: 11/20/16 13:00 Dose: 6 unit Insulin Detemir (Levemir) 40 unit SC Q12 [facility] Last Admin: 11/20/16 09:14 Dose: 40 unit Lisinopril (Zestril) 20 mg PO DAILY [facility] Last Admin: 11/20/16 09:12 Dose: 20 mg Metoprolol Tartrate (Lopressor) 50 mg PO Q12H [facility] Last Admin: 11/20/16 09:24 Dose: 50 mg Promethazine HCl/Codeine (Phenergan/Codeine Oral Syrup) 5 ml PO Q4 PRN PRN Reason: Cough Last Admin: 11/16/16 13:24 Dose: 5 ml Saccharomyces Boulardii (Florastor) 500 mg PO BID [facility] Last Admin: 11/20/16 09:12 Dose: 500 mg Vancomycin HCl (Vancocin (Oral Or Rectal Use)) 125 mg PO Q6 [facility] Last Admin: 11/20/16 13:00 Dose: 125 mg - Labs Labs: 11/19/16 08:30 11/19/16 08:30 PT 15.8 SECONDS (9.7-12.2) H 11/17/16 08:41 INR 1.4 11/17/16 08:41 APTT 32 SECONDS (21-34) 11/17/16 08:41 Assessment and Plan - Assessment and Plan (Free Text) Assessment: Patient with empyema. Pneumonia. Localized cellulitis. Chest tube. Pigtail. We will get the CAT scan of the chest again tomorrow, will discuss with the cardiothoracic surgery for removal of the chest tube. We'll get a PICC line tomorrow. Patient will continue to need antibiotic and will follow the patient
[2016-11-21] MEDS ORDERED: Oxycodone/Acetaminophen 5/325 mg Tab PO ONE ×2 (05:40→18:45)
[2016-11-21] MEDS: Vancomycin 125 MG/5 ML SOLN (ORAL/RECTAL) PO SCH ×3 (06:00→17:43)
[2016-11-21 07:10] LABS: BASO % 0.4 % (0.0-2.0); EOS # 0.1 K/uL (0.0-0.7); EOS % 1.1 % (0.0-4.0); HEMATOCRIT 26.2 % (35.0-51.0); LYMPH # 1.6 K/uL (1.0-4.3); LYMPH % 28.4 % (20.0-40.0); MEAN CELL VOLUME 82.4 fL (80.0-94.0); MEAN CORPUSCULAR HEMOGLOBIN 26.6 pg (27.0-31.0); MEAN CORPUSCULAR HGB CONC 32.3 g/dL (33.0-37.0); MEAN PLATELET VOLUME 8.6 fL (7.2-11.7); MONO # 0.6 K/uL (0.0-0.8); MONO % 10.7 % (0.0-10.0); RED CELL DISTRIBUTION WIDTH 16.5 % (11.5-14.5); WHITE BLOOD COUNT 5.6 K/uL (4.8-10.8)
[2016-11-21 07:25] LABS: CHLORIDE 93 mmol/L (98-107); POTASSIUM 4.2 mmol/L (3.6-5.2); SODIUM 130 mmol/L (132-148)
[2016-11-21 07:27] LABS: BILIRUBIN,TOTAL 0.6 mg/dL (0.2-1.3); CARBON DIOXIDE 27 mmol/L (22-30); GFR AFRICAN-AMERICAN > 60
[2016-11-21 07:28] LABS: ALB/GLOB RATIO 0.7 (1.0-2.1); ALKALINE PHOSPHATASE 67 U/L (38-126); ALT/SGPT 20 U/L (21-72); AST/SGOT 19 U/L (17-59); BLOOD UREA NITROGEN 11 mg/dL (9-20); CALCIUM 7.6 mg/dl (8.6-10.4); GLUCOSE,RANDOM 149 mg/dL (75-110); TOTAL PROTEIN 6.8 g/dL (6.3-8.3)
[2016-11-21] MEDS: (Novolog) Insulin Aspart, Recombinant 100 u/ml 10 ml vial SC SCH ×4 (08:03→22:11)
[2016-11-21] MEDS: GlipiZIDE 2.5 mg Tab PO SCH (10:21)
[2016-11-21] MEDS: Insulin Detemir 100 units/ml Vial (Levemir) SC SCH ×2 (10:21→22:18)
[2016-11-21] MEDS: Saccharomyces Boulardi 250 mg Cap PO SCH ×2 (10:21→17:41)
--- NOTE | 2016-11-21 13:40 | CP.PCM.PN ---
Subjective - Date & Time of Evaluation Date of Evaluation: 11/21/16 Time of Evaluation: 13:36 - Subjective Subjective: Pts/e. c/o pain..back and lowe ant chest wall. chest tube-10cc/y-serous Cath-70cc serosanguinus/y ct of chest: cath drained cavity is smaller, and consolidation much improved. a/p: continue current care. pt not to be moved to [facility].(d/w Daphne) Objective - Vital Signs/Intake and Output Vital Signs (last 24 hours): Temp Pulse Resp BP Pulse Ox 97.8 F 81 18 145/79 98 11/21/16 07:00 11/21/16 07:00 11/21/16 07:00 11/21/16 07:00 11/21/16 07:00 Intake and Output: 11/21/16 11/21/16 06:59 18:59 Output Total 880 Balance -880 - Medications Medications: Current Medications Famotidine (Pepcid) 20 mg PO DAILY [facility] Last Admin: 11/21/16 10:22 Dose: 20 mg Folic Acid (Folic Acid) 1 mg PO DAILY [facility] Last Admin: 11/21/16 10:21 Dose: 1 mg Glipizide (Glucotrol) 2.5 mg PO DAILY [facility] Last Admin: 11/21/16 10:21 Dose: 2.5 mg Imipenem/Cilastatin Sodium 1, (000 mg/ Sodium Chloride) 250 mls @ 250 mls/hr IVPB Q8H [facility] Last Admin: 11/21/16 07:21 Dose: 250 mls/hr Insulin Aspart (Novolog) 0 unit SC ACHS [facility] PRN Reason: Protocol Last Admin: 11/21/16 11:26 Dose: 8 unit Insulin Detemir (Levemir) 40 unit SC Q12 [facility] Last Admin: 11/21/16 10:21 Dose: 40 unit Lisinopril (Zestril) 20 mg PO DAILY [facility] Last Admin: 11/21/16 10:22 Dose: 20 mg Metoprolol Tartrate (Lopressor) 50 mg PO Q12H [facility] Last Admin: 11/21/16 08:02 Dose: 50 mg Morphine Sulfate (Morphine) 2 mg IVP Q4 PRN PRN Reason: Pain, moderate (4-7) Last Admin: 11/21/16 10:19 Dose: 2 mg Ondansetron HCl (Zofran Inj) 4 mg IVP Q4 PRN PRN Reason: Nausea/Vomiting Last Admin: 11/21/16 10:19 Dose: 4 mg Saccharomyces Boulardii (Florastor) 500 mg PO BID [facility] Last Admin: 11/21/16 10:21 Dose: 500 mg Vancomycin HCl (Vancocin (Oral Or Rectal Use)) 125 mg PO Q6 [facility] Last Admin: 11/21/16 11:26 Dose: 125 mg - Labs Labs: 11/21/16 07:05 11/21/16 07:05 PT 15.8 SECONDS (9.7-12.2) H 11/17/16 08:41 INR 1.4 11/17/16 08:41 APTT 32 SECONDS (21-34) 11/17/16 08:41
--- NOTE | 2016-11-21 14:02 | CT ---
PROCEDURE: CT Chest without contrast HISTORY: pleural effusion COMPARISON: 11/15/2016 TECHNIQUE: Contiguous axial images were obtained through the chest without intravenous contrast enhancement. Sagittal and coronal reconstructions were performed. Radiation dose (DLP): 966.51 mGy-cm. This CT exam was performed using one or more of the following dose reduction techniques: Automated exposure control, adjustment of the mA and/or kV according to patient size, and/or use of iterative reconstruction technique. FINDINGS: LUNGS: Linear subsegmental atelectasis noted in the right lower lobe. No acute infiltrate. No pulmonary mass. MEDIASTINUM: Unremarkable thoracic aorta. No aneurysm. Normal sized heart. Main pulmonary artery unremarkable. No vascular congestion. No significantly enlarged mediastinal lymph nodes. Probable mild right hilar lymphadenopathy although evaluation is limited by the absence of intravenous contrast. Circumferential mural thickening of distal thoracic esophagus unchanged appearance to prior examination. Nonspecific. PLEURA: Small right pleural effusion. Right chest tube noted. There is minimal pneumothorax with some bubbles of gas seen within the pleural space a percutaneous drainage catheter is noted inserted through a posterior approach, into a previously demonstrated collection along the right posteromedial chest wall. This collection has diminished markedly in size. There is a 3.1 cm rounded loculated pleural collection at the right lung base (series 4, image 78). This was not discernible on prior examination. There is a 2.5 cm rounded pleural-based collection along the right antrum medial pleural surface. This is grossly unchanged from prior examination, although several bubbles of gas seen previously within the collection are not evident. There is a punctate calcifications seen within this collection, of uncertain significance. There is a small rounded collection fluid and gas in the right lung apex, likely a loculated pleural collection. This measures 3.7 x 2.2 cm and is best demonstrated on series 4, image 25. This is grossly unchanged. BONES: No fracture. No destructive lesion. UPPER ABDOMEN: Cholelithiasis without evidence of cholecystitis. Mild splenomegaly. The spleen measures 15 cm in greatest dimension. OTHER FINDINGS: None. IMPRESSION: G decrease in size of a posterior pleural collection status post placement of percutaneous drainage catheter. Several additional small loculated collections are as described above. Small pleural effusion. Right chest tube with minimal pneumothorax. Probable mild right hilar lymphadenopathy, likely reactive. Mild splenomegaly. Nonspecific circumferential mural thickening of distal thoracic esophagus.
--- NOTE | 2016-11-21 14:59 | CP.PCM.PN ---
<Zay Prado - Last Filed: 11/21/16 14:56> Subjective - Date & Time of Evaluation Date of Evaluation: 11/21/16 Time of Evaluation: 07:15 - Subjective Subjective: Cardiology Progress Note Dr. Lin Patient seen and examined at the bedside. No acute distress. Per pt and nursing, overnight patient continued to have nausea with pain medication, a few episodes of clear emesis. No other issues overnight. Patient is POD #17 s/p thoracotomy with Dr. Villagomez. Denies SOB or chest pain today, but admits to persistence of pain/abnormal sensation at sites of chest tubes when taking deep breaths. Minimal drainage from R posterior chest tube over last 24 hours, ~ 70ccc of drainage from mid-back IR tube in last 24 hours (serosanguinous fluid) . The patient is resting comfortably in the bed at time of exam. He denies all other complaints this morning. 12 point review of systems was completed and negative except for the above, stated complaints. Objective - Vital Signs/Intake and Output Vital Signs (last 24 hours): Temp Pulse Resp BP Pulse Ox 97.8 F 81 18 145/79 98 11/21/16 07:00 11/21/16 07:00 11/21/16 07:00 11/21/16 07:00 11/21/16 07:00 Intake and Output: 11/21/16 11/21/16 06:59 18:59 Intake Total 400 Output Total 880 770 Balance -880 -370 - Medications Medications: Current Medications Famotidine (Pepcid) 20 mg PO DAILY [facility] Last Admin: 11/21/16 10:22 Dose: 20 mg Folic Acid (Folic Acid) 1 mg PO DAILY [facility] Last Admin: 11/21/16 10:21 Dose: 1 mg Glipizide (Glucotrol) 2.5 mg PO DAILY [facility] Last Admin: 11/21/16 10:21 Dose: 2.5 mg Imipenem/Cilastatin Sodium 1, (000 mg/ Sodium Chloride) 250 mls @ 250 mls/hr IVPB Q8H [facility] Last Admin: 11/21/16 07:21 Dose: 250 mls/hr Insulin Aspart (Novolog) 0 unit SC ACHS [facility] PRN Reason: Protocol Last Admin: 11/21/16 11:26 Dose: 8 unit Insulin Detemir (Levemir) 40 unit SC Q12 [facility] Last Admin: 11/21/16 10:21 Dose: 40 unit Lisinopril (Zestril) 20 mg PO DAILY [facility] Last Admin: 11/21/16 10:22 Dose: 20 mg Metoprolol Tartrate (Lopressor) 50 mg PO Q12H [facility] Last Admin: 11/21/16 08:02 Dose: 50 mg Morphine Sulfate (Morphine) 2 mg IVP Q4 PRN PRN Reason: Pain, moderate (4-7) Last Admin: 11/21/16 10:19 Dose: 2 mg Ondansetron HCl (Zofran Inj) 4 mg IVP Q4 PRN PRN Reason: Nausea/Vomiting Last Admin: 11/21/16 10:19 Dose: 4 mg Saccharomyces Boulardii (Florastor) 500 mg PO BID [facility] Last Admin: 11/21/16 10:21 Dose: 500 mg Vancomycin HCl (Vancocin (Oral Or Rectal Use)) 125 mg PO Q6 [facility] Last Admin: 11/21/16 11:26 Dose: 125 mg - Labs Labs: 11/21/16 07:05 11/21/16 07:05 PT 15.8 SECONDS (9.7-12.2) H 11/17/16 08:41 INR 1.4 11/17/16 08:41 APTT 32 SECONDS (21-34) 11/17/16 08:41 - Additional Findings Additional findings: - Constitutional Appears: Well, Non-toxic, No Acute Distress, Resting Comfortably in Bed - Head Exam Head Exam: ATRAUMATIC, NORMAL INSPECTION, NORMOCEPHALIC - Eye Exam Eye Exam: EOMI, Normal appearance. absent: Conjunctival injection, Scleral icterus Pupil Exam: absent: Irregular, Unequal - ENT Exam ENT Exam: Mucous Membranes Moist - Neck Exam Neck Exam: Full ROM. absent: Tenderness - Respiratory Exam Respiratory Exam: Chest Wall Tenderness (at and adjacent to site of R posterior chest tube and mid-back IR tube), Decreased Breath Sounds (mild decreased breath sounds, equal bilaterally), Clear to Ausculation Bilateral, NORMAL BREATHING PATTERN, Posterior R-sided chest tube and mid-back chest in place on suction (minimal drainage in both tubes at time of exam). absent: Accessory Muscle Use, Rales, Rhonchi, Wheezes - Cardiovascular Exam Cardiovascular Exam: REGULAR RHYTHM, RRR, +S1, +S2. absent: Bradycardia, Tachycardia, Systolic or Diastolic murmurs, Clicks - GI/Abdominal Exam GI & Abdominal Exam: Soft, Normal Bowel Sounds. absent: Distended, Firm, Rigid , Tenderness, Diminished Bowel Sounds, Hypoactive Bowel Sounds - Extremities Exam Extremities Exam: Full ROM, Normal Capillary Refill, Pedal Edema (+1 pitting edema in bilateral LE, extending up to mid moore, wearing compression stockings) . absent: Tenderness, Calf Tenderness, Joint Swelling, Normal Inspection - Neurological Exam Neurological Exam: Alert, Awake, CN II-XII Intact, Oriented x3 - Psychiatric Exam Psychiatric exam: Normal Mood, Normal Affect - Skin Skin Exam: Dry, Intact (except at site of 2 active chest tubes described above and healing site of R-anterior tube removed previously), Normal Color, Warm Assessment and Plan (1) Tachycardia Assessment & Plan: 11/04/16 ELG- sinus tachycardia, physiologic axis, normal MS interval, normal QRS duration, prolonged QTc, poor R wave progression, no ST or T wave abnormalities 11/02/16 EKG- sinus tachycardia, right axis deviation, normal MS interval, normal QRS duration, prolonged QTc, nonspecific ST/T wave abnormality 11/03/15 Echo- EF 53%, normal diastolic filling pressures Troponin negative x 2 (<0.0120 x 2) CK-MB negative x 2 (1.00 > 0.63) BNP 102 (normal) -cardiac stable at this point -tachycardic with and briefly after exertion (using bedside commode, walking with PT, etc), otherwise remains normocardic -will continue to monitor -continue Lopressor 50mg PO q12 Status: Resolved (2) Bilateral lower extremity edema Assessment & Plan: -Continue Lasix 20mg IVP q12 -José hose stockings, ambulating with PT as tolerated -Encourage patient to keep legs elevated and not flat or dangling off of bed when lying down Status: Resolved (3) Pre-procedural cardiovascular examination Assessment & Plan: -Cardiac Risk Assessment- Low Risk (POD #10 s/p VATS) - Detsky Score 10: Class I - Low Risk - Jenkins Score 3: Class I - Low Risk - Tunde Score 2- Moderate Risk Case discussed with Dr Lin. Status: Resolved <Saravanan Lin - Last Filed: 11/21/16 19:44> Objective - Vital Signs/Intake and Output Vital Signs (last 24 hours): Temp Pulse Resp BP Pulse Ox 98.4 F 87 20 152/96 H 98 11/21/16 15:00 11/21/16 15:00 11/21/16 15:00 11/21/16 15:00 11/21/16 15:00 Intake and Output: 11/21/16 11/22/16 18:59 06:59 Intake Total 400 Output Total 770 Balance -370 - Medications Medications: Current Medications Famotidine (Pepcid) 20 mg PO DAILY [facility] Last Admin: 11/21/16 10:22 Dose: 20 mg Folic Acid (Folic Acid) 1 mg PO DAILY [facility] Last Admin: 11/21/16 10:21 Dose: 1 mg Glipizide (Glucotrol) 2.5 mg PO DAILY [facility] Last Admin: 11/21/16 10:21 Dose: 2.5 mg Imipenem/Cilastatin Sodium 1, (000 mg/ Sodium Chloride) 250 mls @ 250 mls/hr IVPB Q8H [facility] Last Admin: 11/21/16 15:37 Dose: 250 mls/hr Metronidazole (Flagyl) 500 mg in 100 mls @ 100 mls/hr IVPB Q8 [facility] Insulin Aspart (Novolog) 0 unit SC ACHS [facility] PRN Reason: Protocol Last Admin: 11/21/16 17:42 Dose: 2 unit Insulin Detemir (Levemir) 40 unit SC Q12 [facility] Last Admin: 11/21/16 10:21 Dose: 40 unit Lisinopril (Zestril) 20 mg PO DAILY [facility] Last Admin: 11/21/16 10:22 Dose: 20 mg Metoprolol Tartrate (Lopressor) 50 mg PO Q12H [facility] Last Admin: 11/21/16 08:02 Dose: 50 mg Morphine Sulfate (Morphine) 2 mg IVP Q4 PRN PRN Reason: Pain, moderate (4-7) Last Admin: 11/21/16 15:36 Dose: 2 mg Ondansetron HCl (Zofran Inj) 4 mg IVP Q4 PRN PRN Reason: Nausea/Vomiting Last Admin: 11/21/16 10:19 Dose: 4 mg Saccharomyces Boulardii (Florastor) 500 mg PO BID [facility] Last Admin: 11/21/16 17:41 Dose: 500 mg Vancomycin HCl (Vancocin (Oral Or Rectal Use)) 125 mg PO Q6 [facility] Last Admin: 11/21/16 17:43 Dose: 125 mg - Labs Labs: 11/21/16 07:05 11/21/16 07:05 PT 15.8 SECONDS (9.7-12.2) H 11/17/16 08:41 INR 1.4 11/17/16 08:41 APTT 32 SECONDS (21-34) 11/17/16 08:41 Attending/Attestation - Attestation I have personally seen and examined this patient.: Yes I have fully participated in the care of the patient.: Yes I have reviewed all pertinent clinical information, including history, physical exam and plan: Yes Notes (Text): 11/21/16 19:43 s/p unit of prbcs feeling better ct lungs improved possible d/c of chest tubes
--- NOTE | 2016-11-21 17:15 | CP.PCM.PN ---
Subjective - Date & Time of Evaluation Date of Evaluation: 11/21/16 Time of Evaluation: 17:08 - Subjective Subjective: INFECTIOUS DISEASE PROGRESS NOTE MARIA DIAZ MD, FACP 6T 671-B 11/21/2016 CHART REVIEWED PT EXAMINED CASE DISCUSSED PT UP AND ABOUT A LITTLE. LOOKS BETTER RECEIVED ANOTHER UNIT OF BLOOD. ON PRIMAXIN AND FLAGYL SHOULD BE CONTINUED. RE CHECK HIS REPEAT CT SCAN. Objective - Vital Signs/Intake and Output Vital Signs (last 24 hours): Temp Pulse Resp BP Pulse Ox 97.8 F 81 18 145/79 98 11/21/16 07:00 11/21/16 07:00 11/21/16 07:00 11/21/16 07:00 11/21/16 07:00 Intake and Output: 11/21/16 11/21/16 06:59 18:59 Intake Total 400 Output Total 880 770 Balance -880 -370 - Medications Medications: Current Medications Famotidine (Pepcid) 20 mg PO DAILY [facility] Last Admin: 11/21/16 10:22 Dose: 20 mg Folic Acid (Folic Acid) 1 mg PO DAILY [facility] Last Admin: 11/21/16 10:21 Dose: 1 mg Glipizide (Glucotrol) 2.5 mg PO DAILY [facility] Last Admin: 11/21/16 10:21 Dose: 2.5 mg Imipenem/Cilastatin Sodium 1, (000 mg/ Sodium Chloride) 250 mls @ 250 mls/hr IVPB Q8H [facility] Last Admin: 11/21/16 15:37 Dose: 250 mls/hr Metronidazole (Flagyl) 500 mg in 100 mls @ 100 mls/hr IVPB Q8 [facility] Insulin Aspart (Novolog) 0 unit SC ACHS [facility] PRN Reason: Protocol Last Admin: 11/21/16 11:26 Dose: 8 unit Insulin Detemir (Levemir) 40 unit SC Q12 [facility] Last Admin: 11/21/16 10:21 Dose: 40 unit Lisinopril (Zestril) 20 mg PO DAILY [facility] Last Admin: 11/21/16 10:22 Dose: 20 mg Metoprolol Tartrate (Lopressor) 50 mg PO Q12H [facility] Last Admin: 11/21/16 08:02 Dose: 50 mg Morphine Sulfate (Morphine) 2 mg IVP Q4 PRN PRN Reason: Pain, moderate (4-7) Last Admin: 11/21/16 15:36 Dose: 2 mg Ondansetron HCl (Zofran Inj) 4 mg IVP Q4 PRN PRN Reason: Nausea/Vomiting Last Admin: 11/21/16 10:19 Dose: 4 mg Saccharomyces Boulardii (Florastor) 500 mg PO BID [facility] Last Admin: 11/21/16 10:21 Dose: 500 mg Vancomycin HCl (Vancocin (Oral Or Rectal Use)) 125 mg PO Q6 [facility] Last Admin: 11/21/16 11:26 Dose: 125 mg - Labs Labs: 11/21/16 07:05 11/21/16 07:05 PT 15.8 SECONDS (9.7-12.2) H 11/17/16 08:41 INR 1.4 11/17/16 08:41 APTT 32 SECONDS (21-34) 11/17/16 08:41 - Constitutional Appears: Non-toxic, No Acute Distress - Eye Exam Eye Exam: Normal appearance - ENT Exam ENT Exam: Mucous Membranes Moist - Respiratory Exam Respiratory Exam: Decreased Breath Sounds, NORMAL BREATHING PATTERN - Cardiovascular Exam Cardiovascular Exam: REGULAR RHYTHM - GI/Abdominal Exam GI & Abdominal Exam: Soft, Normal Bowel Sounds. absent: Tenderness, Rebound - Rectal Exam Rectal Exam: Deferred - Extremities Exam Extremities Exam: Normal Inspection. absent: Calf Tenderness - Neurological Exam Neurological Exam: Alert, Awake Assessment and Plan (1) Empyema Status: Acute (2) Pneumonia Status: Acute (3) Pleural effusion on right Status: Acute (4) Bilateral lower extremity edema Status: Resolved (5) Anemia Status: Chronic (6) Hyperglycemia Status: Acute (7) HTN (hypertension) Status: Chronic (8) Diarrhea Status: Acute
[2016-11-21] MEDS: metroNIDAZOLE IV 500 mg/100 ml 500 MG/100 ML BAG IVPB SCH (21:15)
[2016-11-22] MEDS: Vancomycin 125 MG/5 ML SOLN (ORAL/RECTAL) PO SCH ×4 (00:13→18:30)
[2016-11-22] MEDS: metroNIDAZOLE IV 500 mg/100 ml 500 MG/100 ML BAG IVPB SCH ×3 (05:58→22:01)
[2016-11-22] MEDS: (Novolog) Insulin Aspart, Recombinant 100 u/ml 10 ml vial SC SCH ×4 (08:44→21:56)
[2016-11-22] MEDS: Saccharomyces Boulardi 250 mg Cap PO SCH ×2 (09:40→18:29)
[2016-11-22] MEDS: Insulin Detemir 100 units/ml Vial (Levemir) SC SCH ×2 (09:41→22:03)
[2016-11-22] MEDS: GlipiZIDE 2.5 mg Tab PO SCH (09:43)
--- NOTE | 2016-11-22 10:02 | CP.PCM.PN ---
<Zay Prado - Last Filed: 11/22/16 09:55> Subjective - Date & Time of Evaluation Date of Evaluation: 11/22/16 Time of Evaluation: 07:20 - Subjective Subjective: Cardiology Progress Note Dr. Lin Patient seen and examined at the bedside. No acute distress. Per pt, overnight had poor pain control, continuous pain from chest tube in back. He also reports sensation of leakage from L arm peripheral IV today. No other events overnight,no acute events per nursing. Patient is POD #18 s/p thoracotomy with Dr. Villagomez. Denies SOB or chest pain today, but admits to persistence of pain/abnormal sensation at sites of chest tubes when taking deep breaths. Minimal drainage from both remaining chest tubes. The patient is resting comfortably in the bed at time of exam. He denies all other complaints this morning. 12 point review of systems was completed and negative except for the above, stated complaints. Patient is pending possible removal of remaining chest tubes today and possible PICC line placement. Objective - Vital Signs/Intake and Output Vital Signs (last 24 hours): Temp Pulse Resp BP Pulse Ox 98.4 F 79 20 139/79 97 11/22/16 08:37 11/22/16 08:37 11/22/16 08:37 11/22/16 08:37 11/22/16 08:37 Intake and Output: 11/22/16 11/22/16 06:59 18:59 Intake Total 660 Output Total 920 Balance -260 - Medications Medications: Current Medications Famotidine (Pepcid) 20 mg PO DAILY [facility] Last Admin: 11/22/16 09:40 Dose: 20 mg Folic Acid (Folic Acid) 1 mg PO DAILY [facility] Last Admin: 11/22/16 09:40 Dose: 1 mg Glipizide (Glucotrol) 2.5 mg PO DAILY [facility] Last Admin: 11/22/16 09:43 Dose: 2.5 mg Imipenem/Cilastatin Sodium 1, (000 mg/ Sodium Chloride) 250 mls @ 250 mls/hr IVPB Q8H [facility] Last Admin: 11/22/16 07:27 Dose: 250 mls/hr Metronidazole (Flagyl) 500 mg in 100 mls @ 100 mls/hr IVPB Q8 [facility] Last Admin: 11/22/16 05:58 Dose: 100 mls/hr Insulin Aspart (Novolog) 0 unit SC ACHS [facility] PRN Reason: Protocol Last Admin: 11/22/16 08:44 Dose: 2 unit Insulin Detemir (Levemir) 40 unit SC Q12 [facility] Last Admin: 11/22/16 09:41 Dose: 40 unit Lisinopril (Zestril) 20 mg PO DAILY [facility] Last Admin: 11/22/16 09:40 Dose: 20 mg Metoprolol Tartrate (Lopressor) 50 mg PO Q12H [facility] Last Admin: 11/22/16 07:53 Dose: 50 mg Morphine Sulfate (Morphine) 2 mg IVP Q4 PRN PRN Reason: Pain, severe (8-10) Last Admin: 11/22/16 09:06 Dose: 2 mg Ondansetron HCl (Zofran Inj) 4 mg IVP Q4 PRN PRN Reason: Nausea/Vomiting Last Admin: 11/21/16 10:19 Dose: 4 mg Oxycodone/Acetaminophen (Percocet 5/325 Mg Tab) 2 tab PO Q4H PRN PRN Reason: Pain, moderate (4-7) Stop: 11/25/16 08:22 Saccharomyces Boulardii (Florastor) 500 mg PO BID [facility] Last Admin: 11/22/16 09:40 Dose: 500 mg Vancomycin HCl (Vancocin (Oral Or Rectal Use)) 125 mg PO Q6 [facility] Last Admin: 11/22/16 05:39 Dose: 125 mg - Labs Labs: 11/21/16 07:05 11/21/16 07:05 PT 15.8 SECONDS (9.7-12.2) H 11/17/16 08:41 INR 1.4 11/17/16 08:41 APTT 32 SECONDS (21-34) 11/17/16 08:41 - Additional Findings Additional findings: - Constitutional Appears: Well, Non-toxic, No Acute Distress, Sitting at edge of bed hunched with some discomfort - Head Exam Head Exam: ATRAUMATIC, NORMAL INSPECTION, NORMOCEPHALIC - Eye Exam Eye Exam: EOMI, Normal appearance. absent: Conjunctival injection, Scleral icterus Pupil Exam: absent: Irregular, Unequal - ENT Exam ENT Exam: Mucous Membranes Moist - Neck Exam Neck Exam: Full ROM. absent: Tenderness - Respiratory Exam Respiratory Exam: Chest Wall Tenderness (at and adjacent to site of R posterior chest tube and mid-back IR tube), Decreased Breath Sounds (mild decreased breath sounds, equal bilaterally, unchanged), Clear to Ausculation Bilateral, NORMAL BREATHING PATTERN, Posterior R-sided chest tube and mid-back chest in place on suction (minimal drainage in both). absent: Accessory Muscle Use, Rales, Rhonchi, Wheezes - Cardiovascular Exam Cardiovascular Exam: REGULAR RHYTHM, RRR, +S1, +S2. absent: Bradycardia, Tachycardia, Systolic or Diastolic murmurs, Clicks - GI/Abdominal Exam GI & Abdominal Exam: Soft, Normal Bowel Sounds. absent: Distended, Firm, Rigid , Tenderness, Diminished Bowel Sounds, Hypoactive Bowel Sounds - Extremities Exam Extremities Exam: Full ROM, Normal Capillary Refill, Pedal Edema (+1 pitting edema RLE, +1-2 pitting edema in LLE, edema extending up to mid moore, wearing compression stockings). absent: Tenderness, Calf Tenderness, Joint Swelling, Normal Inspection - Neurological Exam Neurological Exam: Alert, Awake, CN II-XII Intact, Oriented x3 - Psychiatric Exam Psychiatric exam: Normal Mood, Normal Affect - Skin Skin Exam: Dry, Intact (except at site of 2 active chest tubes described above and healing site of R-anterior tube removed previously), Normal Color, Warm Assessment and Plan (1) Tachycardia Assessment & Plan: 11/04/16 ELG- sinus tachycardia, physiologic axis, normal IN interval, normal QRS duration, prolonged QTc, poor R wave progression, no ST or T wave abnormalities 11/02/16 EKG- sinus tachycardia, right axis deviation, normal IN interval, normal QRS duration, prolonged QTc, nonspecific ST/T wave abnormality 11/03/15 Echo- EF 53%, normal diastolic filling pressures Troponin negative x 2 (<0.0120 x 2) CK-MB negative x 2 (1.00 > 0.63) BNP 102 (normal) -cardiac stable at this point -tachycardic with and briefly after exertion (using bedside commode, walking with PT, etc), otherwise remains normocardic -will continue to monitor -continue Lopressor 50mg PO q12 Status: Resolved (2) Bilateral lower extremity edema Assessment & Plan: -Continue Lasix 20mg IVP q12 -José hose stockings, ambulating with PT as tolerated -Encourage patient to keep legs elevated and not flat or dangling off of bed when lying down Status: Resolved (3) Pre-procedural cardiovascular examination Assessment & Plan: -Cardiac Risk Assessment- Low Risk (POD #10 s/p VATS) - Detsky Score 10: Class I - Low Risk - Jenkins Score 3: Class I - Low Risk - Tunde Score 2- Moderate Risk Case discussed with Dr Lin. Status: Resolved <Saravanan Lin - Last Filed: 11/22/16 19:50> Objective - Vital Signs/Intake and Output Vital Signs (last 24 hours): Temp Pulse Resp BP Pulse Ox 98 F 77 18 139/87 97 11/22/16 16:00 11/22/16 16:00 11/22/16 16:00 11/22/16 16:00 11/22/16 16:00 Intake and Output: 11/22/16 11/23/16 18:59 06:59 Intake Total 120 Output Total 1041 Balance -921 - Medications Medications: Current Medications Famotidine (Pepcid) 20 mg PO DAILY [facility] Last Admin: 11/22/16 09:40 Dose: 20 mg Folic Acid (Folic Acid) 1 mg PO DAILY [facility] Last Admin: 11/22/16 09:40 Dose: 1 mg Glipizide (Glucotrol) 2.5 mg PO DAILY [facility] Last Admin: 11/22/16 09:43 Dose: 2.5 mg Imipenem/Cilastatin Sodium 1, (000 mg/ Sodium Chloride) 250 mls @ 250 mls/hr IVPB Q8H [facility] Last Admin: 11/22/16 16:28 Dose: 250 mls/hr Metronidazole (Flagyl) 500 mg in 100 mls @ 100 mls/hr IVPB Q8 [facility] Last Admin: 11/22/16 13:17 Dose: 100 mls/hr Insulin Aspart (Novolog) 0 unit SC ACHS [facility] PRN Reason: Protocol Last Admin: 11/22/16 18:29 Dose: 2 unit Insulin Detemir (Levemir) 40 unit SC Q12 [facility] Last Admin: 11/22/16 09:41 Dose: 40 unit Lisinopril (Zestril) 20 mg PO DAILY [facility] Last Admin: 11/22/16 09:40 Dose: 20 mg Metoprolol Tartrate (Lopressor) 50 mg PO Q12H [facility] Last Admin: 11/22/16 07:53 Dose: 50 mg Morphine Sulfate (Morphine) 2 mg IVP Q4 PRN PRN Reason: Pain, severe (8-10) Last Admin: 11/22/16 18:24 Dose: 2 mg Ondansetron HCl (Zofran Inj) 4 mg IVP Q4 PRN PRN Reason: Nausea/Vomiting Last Admin: 11/21/16 10:19 Dose: 4 mg Oxycodone/Acetaminophen (Percocet 5/325 Mg Tab) 2 tab PO Q4H PRN PRN Reason: Pain, moderate (4-7) Stop: 11/25/16 08:22 Last Admin: 11/22/16 11:11 Dose: 2 tab Saccharomyces Boulardii (Florastor) 500 mg PO BID [facility] Last Admin: 11/22/16 18:29 Dose: 500 mg Vancomycin HCl (Vancocin (Oral Or Rectal Use)) 125 mg PO Q6 [facility] Last Admin: 11/22/16 18:30 Dose: 125 mg - Labs Labs: 11/21/16 07:05 11/21/16 07:05 PT 15.8 SECONDS (9.7-12.2) H 11/17/16 08:41 INR 1.4 11/17/16 08:41 APTT 32 SECONDS (21-34) 11/17/16 08:41 Attending/Attestation - Attestation I have personally seen and examined this patient.: Yes I have fully participated in the care of the patient.: Yes I have reviewed all pertinent clinical information, including history, physical exam and plan: Yes Notes (Text): 11/22/16 19:50 abx group home no tachycardia
[2016-11-22] MEDS: Oxycodone/Acetaminophen 5/325 mg Tab PO PRN ×2 (11:11→22:21)
--- NOTE | 2016-11-22 12:17 | CP.PCM.PN ---
Subjective - Date & Time of Evaluation Date of Evaluation: 11/22/16 Time of Evaluation: 07:00 - Subjective Subjective: THORACIC SURGERY PROGRESS NOTE FOR DR. AYERS Patient seen and examined at bedside. He denies SOB. Still reports pain at the chest tube site, more so at posterior pigtail catheter. Had increased pain overnight. Patient reported that he had a lot of nausea with the dilaudid before. We decreased the morphine dose and added 2 Percocets Q4hrs. This morning , we removed the packing, painted the incision with betadine, irrigated wound with saline, and repacked with iodaform. Changed chest tube dressing. Objective - Vital Signs/Intake and Output Vital Signs (last 24 hours): Temp Pulse Resp BP Pulse Ox 98.5 F 86 18 124/87 100 11/22/16 12:07 11/22/16 12:07 11/22/16 12:07 11/22/16 12:07 11/22/16 12:07 Intake and Output: 11/22/16 11/22/16 06:59 18:59 Intake Total 660 Output Total 920 Balance -260 - Medications Medications: Current Medications Famotidine (Pepcid) 20 mg PO DAILY [facility] Last Admin: 11/22/16 09:40 Dose: 20 mg Folic Acid (Folic Acid) 1 mg PO DAILY [facility] Last Admin: 11/22/16 09:40 Dose: 1 mg Glipizide (Glucotrol) 2.5 mg PO DAILY [facility] Last Admin: 11/22/16 09:43 Dose: 2.5 mg Imipenem/Cilastatin Sodium 1, (000 mg/ Sodium Chloride) 250 mls @ 250 mls/hr IVPB Q8H [facility] Last Admin: 11/22/16 07:27 Dose: 250 mls/hr Metronidazole (Flagyl) 500 mg in 100 mls @ 100 mls/hr IVPB Q8 [facility] Last Admin: 11/22/16 05:58 Dose: 100 mls/hr Insulin Aspart (Novolog) 0 unit SC ACHS [facility] PRN Reason: Protocol Last Admin: 11/22/16 11:55 Dose: 4 unit Insulin Detemir (Levemir) 40 unit SC Q12 [facility] Last Admin: 11/22/16 09:41 Dose: 40 unit Lisinopril (Zestril) 20 mg PO DAILY [facility] Last Admin: 11/22/16 09:40 Dose: 20 mg Metoprolol Tartrate (Lopressor) 50 mg PO Q12H [facility] Last Admin: 11/22/16 07:53 Dose: 50 mg Morphine Sulfate (Morphine) 2 mg IVP Q4 PRN PRN Reason: Pain, severe (8-10) Last Admin: 11/22/16 09:06 Dose: 2 mg Ondansetron HCl (Zofran Inj) 4 mg IVP Q4 PRN PRN Reason: Nausea/Vomiting Last Admin: 11/21/16 10:19 Dose: 4 mg Oxycodone/Acetaminophen (Percocet 5/325 Mg Tab) 2 tab PO Q4H PRN PRN Reason: Pain, moderate (4-7) Stop: 11/25/16 08:22 Last Admin: 11/22/16 11:11 Dose: 2 tab Saccharomyces Boulardii (Florastor) 500 mg PO BID [facility] Last Admin: 11/22/16 09:40 Dose: 500 mg Vancomycin HCl (Vancocin (Oral Or Rectal Use)) 125 mg PO Q6 [facility] Last Admin: 11/22/16 11:05 Dose: 125 mg - Labs Labs: 11/21/16 07:05 11/21/16 07:05 PT 15.8 SECONDS (9.7-12.2) H 11/17/16 08:41 INR 1.4 11/17/16 08:41 APTT 32 SECONDS (21-34) 11/17/16 08:41 - Constitutional Appears: Non-toxic, No Acute Distress - Head Exam Head Exam: ATRAUMATIC, NORMAL INSPECTION - Eye Exam Eye Exam: EOMI, Normal appearance - Respiratory Exam Respiratory Exam: NORMAL BREATHING PATTERN. absent: Respiratory Distress Additional comments: Right chest tube on suction, 20cc new output over past 24 hours No air leak Dressing changed Incision site with iodaform packing in place IR drain in place on suction with 70cc drainage over past 24 hours - Cardiovascular Exam Cardiovascular Exam: +S1, +S2 - Neurological Exam Neurological Exam: Alert, Awake, Oriented x3 - Psychiatric Exam Psychiatric exam: Normal Affect, Normal Mood - Skin Skin Exam: Dry, Normal Color, Warm Assessment and Plan - Assessment and Plan (Free Text) Assessment: 40M w. R parapneumonic effusion, s/p VATS converted to thoracotomy, w/ decortication and wedge resection POD#19 s/p IR CT guided pigtail placement on - Afebrile, VSS - Daily CXR - Decreased Morphine dose and added 2 percocet every 4 hours - Chest tube on right on suction, no air leak, 20cc new output over past 24 hours - IR pigtail catheter in place with 70cc drainage over past 24 hours - 11/13 Pleural fluid cx: no growth final - 11/17 Pleural fluid from IR: cx w/ no growth final - 11/18 Incision site cx: no growth final - Iodaform packing changes BID - Dressing changes PRN - Dr. Ayers to discuss with Dr. Hernandez pending tube removal; chest tube will likely stay in place until pigtail catheter output decreases - Discussed plan with Dr. Hernando Avalos PGy-2
--- NOTE | 2016-11-22 13:36 | RAD ---
HISTORY: Right chest tube and Right pigtail catheter . Portable study 12:30. COMPARISON: November 20, 2016. FINDINGS: LUNGS: Interval improvement consolidative changes right lower lobe. PLEURA: Stable right pleural effusion/pleural disease. Chest tube in the right pleural space unchanged. Incompletely visualized pigtail catheter approximately stable position compared to the prior study. CARDIOVASCULAR: No radiographic findings to suggest acute or significant cardiovascular disease. OSSEOUS STRUCTURES: No significant abnormalities. VISUALIZED UPPER ABDOMEN: Normal. OTHER FINDINGS: None. IMPRESSION: Stable findings in the right pleural space. Persistent associated consolidative changes right lower lobe with modest interval improvement.
--- NOTE | 2016-11-22 22:17 | CP.PCM.PN ---
Subjective - Date & Time of Evaluation Date of Evaluation: 11/21/16 Time of Evaluation: 22:17 - Subjective Subjective: Patient chest tube is not draining much. Patient is feeling better. But complaining of pain, nausea noted. Improving with the morphine at this time. Vital signs stable. Chest good air entry bilaterally regular heart sound nontender abdomen CT scan of the chest are showing improvement in the loculated pleural effusion Pneumonia improving. Assessment and recommendation: 40-year-old male with history of diabetes, admitted with the pleural effusion empyema. Overall prognosis is guarded. Improvement noted. We will speak to the cardiac thoracic surgeon, for possible chest tube removal Objective - Vital Signs/Intake and Output Vital Signs (last 24 hours): Temp Pulse Resp BP Pulse Ox 98 F 77 18 139/87 97 11/22/16 16:00 11/22/16 16:00 11/22/16 16:00 11/22/16 16:00 11/22/16 16:00 Intake and Output: 11/22/16 11/23/16 18:59 06:59 Intake Total 120 Output Total 1041 Balance -921 - Medications Medications: Current Medications Famotidine (Pepcid) 20 mg PO DAILY [facility] Last Admin: 11/22/16 09:40 Dose: 20 mg Folic Acid (Folic Acid) 1 mg PO DAILY [facility] Last Admin: 11/22/16 09:40 Dose: 1 mg Glipizide (Glucotrol) 2.5 mg PO DAILY [facility] Last Admin: 11/22/16 09:43 Dose: 2.5 mg Imipenem/Cilastatin Sodium 1, (000 mg/ Sodium Chloride) 250 mls @ 250 mls/hr IVPB Q8H [facility] Last Admin: 11/22/16 16:28 Dose: 250 mls/hr Metronidazole (Flagyl) 500 mg in 100 mls @ 100 mls/hr IVPB Q8 [facility] Last Admin: 11/22/16 22:01 Dose: 100 mls/hr Insulin Aspart (Novolog) 0 unit SC ACHS [facility] PRN Reason: Protocol Last Admin: 11/22/16 21:56 Dose: Not Given Insulin Detemir (Levemir) 40 unit SC Q12 [facility] Last Admin: 11/22/16 22:03 Dose: 40 unit Lisinopril (Zestril) 20 mg PO DAILY [facility] Last Admin: 11/22/16 09:40 Dose: 20 mg Metoprolol Tartrate (Lopressor) 50 mg PO Q12H [facility] Last Admin: 11/22/16 22:04 Dose: 50 mg Morphine Sulfate (Morphine) 2 mg IVP Q4 PRN PRN Reason: Pain, severe (8-10) Last Admin: 11/22/16 18:24 Dose: 2 mg Ondansetron HCl (Zofran Inj) 4 mg IVP Q4 PRN PRN Reason: Nausea/Vomiting Last Admin: 11/21/16 10:19 Dose: 4 mg Oxycodone/Acetaminophen (Percocet 5/325 Mg Tab) 2 tab PO Q4H PRN PRN Reason: Pain, moderate (4-7) Stop: 11/25/16 08:22 Last Admin: 11/22/16 11:11 Dose: 2 tab Saccharomyces Boulardii (Florastor) 500 mg PO BID [facility] Last Admin: 11/22/16 18:29 Dose: 500 mg Vancomycin HCl (Vancocin (Oral Or Rectal Use)) 125 mg PO Q6 [facility] Last Admin: 11/22/16 18:30 Dose: 125 mg - Labs Labs: 11/21/16 07:05 11/21/16 07:05 PT 15.8 SECONDS (9.7-12.2) H 11/17/16 08:41 INR 1.4 11/17/16 08:41 APTT 32 SECONDS (21-34) 11/17/16 08:41
--- NOTE | 2016-11-22 22:20 | CP.PCM.PN ---
Subjective - Date & Time of Evaluation Date of Evaluation: 11/22/16 Time of Evaluation: 22:18 - Subjective Subjective: I spoke to the cardiac to thoracic surgery today. Possibly the chest tube will be removed tomorrow Spoke to the patient in details. Feeling better otherwise. Vital signs stable chest good air entry regular heart sound noted nontender abdomen right pedal edema noted Chest x-ray showing no new changes Assessment and recommendation: 40-year-old male history of uncontrolled diabetes improving. Right sided large pneumonia effusion empyema status post VATS and chest tube. Complicated with a loculated pleural effusion Also complicated with the C. difficile colitis. Currently improving. Possible removal of the ones chest tube tomorrow and will closely monitor the patient. Spoke to the patient in details about the further management including rehabilitation, home physical therapy Objective - Vital Signs/Intake and Output Vital Signs (last 24 hours): Temp Pulse Resp BP Pulse Ox 98 F 77 18 139/87 97 11/22/16 16:00 11/22/16 16:00 11/22/16 16:00 11/22/16 16:00 11/22/16 16:00 Intake and Output: 11/22/16 11/23/16 18:59 06:59 Intake Total 120 Output Total 1041 Balance -921 - Medications Medications: Current Medications Famotidine (Pepcid) 20 mg PO DAILY [facility] Last Admin: 11/22/16 09:40 Dose: 20 mg Folic Acid (Folic Acid) 1 mg PO DAILY [facility] Last Admin: 11/22/16 09:40 Dose: 1 mg Glipizide (Glucotrol) 2.5 mg PO DAILY [facility] Last Admin: 11/22/16 09:43 Dose: 2.5 mg Imipenem/Cilastatin Sodium 1, (000 mg/ Sodium Chloride) 250 mls @ 250 mls/hr IVPB Q8H [facility] Last Admin: 11/22/16 16:28 Dose: 250 mls/hr Metronidazole (Flagyl) 500 mg in 100 mls @ 100 mls/hr IVPB Q8 [facility] Last Admin: 11/22/16 22:01 Dose: 100 mls/hr Insulin Aspart (Novolog) 0 unit SC ACHS [facility] PRN Reason: Protocol Last Admin: 11/22/16 21:56 Dose: Not Given Insulin Detemir (Levemir) 40 unit SC Q12 [facility] Last Admin: 11/22/16 22:03 Dose: 40 unit Lisinopril (Zestril) 20 mg PO DAILY [facility] Last Admin: 11/22/16 09:40 Dose: 20 mg Metoprolol Tartrate (Lopressor) 50 mg PO Q12H [facility] Last Admin: 11/22/16 22:04 Dose: 50 mg Morphine Sulfate (Morphine) 2 mg IVP Q4 PRN PRN Reason: Pain, severe (8-10) Last Admin: 11/22/16 18:24 Dose: 2 mg Ondansetron HCl (Zofran Inj) 4 mg IVP Q4 PRN PRN Reason: Nausea/Vomiting Last Admin: 11/21/16 10:19 Dose: 4 mg Oxycodone/Acetaminophen (Percocet 5/325 Mg Tab) 2 tab PO Q4H PRN PRN Reason: Pain, moderate (4-7) Stop: 11/25/16 08:22 Last Admin: 11/22/16 11:11 Dose: 2 tab Saccharomyces Boulardii (Florastor) 500 mg PO BID [facility] Last Admin: 11/22/16 18:29 Dose: 500 mg Vancomycin HCl (Vancocin (Oral Or Rectal Use)) 125 mg PO Q6 [facility] Last Admin: 11/22/16 18:30 Dose: 125 mg - Labs Labs: 11/21/16 07:05 11/21/16 07:05 PT 15.8 SECONDS (9.7-12.2) H 11/17/16 08:41 INR 1.4 11/17/16 08:41 APTT 32 SECONDS (21-34) 11/17/16 08:41
[2016-11-23] MEDS: Oxycodone/Acetaminophen 5/325 mg Tab PO PRN ×3 (04:38→22:28)
[2016-11-23] MEDS: metroNIDAZOLE IV 500 mg/100 ml 500 MG/100 ML BAG IVPB SCH ×3 (05:02→22:06)
[2016-11-23] MEDS: Vancomycin 125 MG/5 ML SOLN (ORAL/RECTAL) PO SCH ×4 (05:03→17:04)
--- NOTE | 2016-11-23 07:56 | CP.PCM.PN ---
Subjective - Date & Time of Evaluation Date of Evaluation: 11/23/16 Time of Evaluation: 07:00 - Subjective Subjective: THORACIC SURGERY PROGRESS NOTE FOR DR. AYERS Patient seen and examined at bedside. He denies SOB. Still reports pain at the chest tube site, a little better after we changed his pain medication regimen yesterday. Changed dressing and removed packing. Repacked with iodaform. Will remove chest tube today. Objective - Vital Signs/Intake and Output Vital Signs (last 24 hours): Temp Pulse Resp BP Pulse Ox 98.2 F 92 H 20 155/92 H 97 11/22/16 23:50 11/22/16 23:50 11/22/16 23:50 11/22/16 23:50 11/22/16 23:50 Intake and Output: 11/23/16 11/23/16 06:59 18:59 Intake Total 950 Output Total 1020 Balance -70 - Medications Medications: Current Medications Famotidine (Pepcid) 20 mg PO DAILY [facility] Last Admin: 11/22/16 09:40 Dose: 20 mg Folic Acid (Folic Acid) 1 mg PO DAILY [facility] Last Admin: 11/22/16 09:40 Dose: 1 mg Glipizide (Glucotrol) 2.5 mg PO DAILY [facility] Last Admin: 11/22/16 09:43 Dose: 2.5 mg Imipenem/Cilastatin Sodium 1, (000 mg/ Sodium Chloride) 250 mls @ 250 mls/hr IVPB Q8H [facility] Last Admin: 11/23/16 00:00 Dose: 250 mls/hr Metronidazole (Flagyl) 500 mg in 100 mls @ 100 mls/hr IVPB Q8 [facility] Last Admin: 11/23/16 05:02 Dose: 100 mls/hr Insulin Aspart (Novolog) 0 unit SC ACHS [facility] PRN Reason: Protocol Last Admin: 11/22/16 21:56 Dose: Not Given Insulin Detemir (Levemir) 40 unit SC Q12 [facility] Last Admin: 11/22/16 22:03 Dose: 40 unit Lisinopril (Zestril) 20 mg PO DAILY [facility] Last Admin: 11/22/16 09:40 Dose: 20 mg Metoprolol Tartrate (Lopressor) 50 mg PO Q12H [facility] Last Admin: 11/22/16 22:04 Dose: 50 mg Morphine Sulfate (Morphine) 2 mg IVP Q4 PRN PRN Reason: Pain, severe (8-10) Last Admin: 11/22/16 18:24 Dose: 2 mg Ondansetron HCl (Zofran Inj) 4 mg IVP Q4 PRN PRN Reason: Nausea/Vomiting Last Admin: 11/21/16 10:19 Dose: 4 mg Oxycodone/Acetaminophen (Percocet 5/325 Mg Tab) 2 tab PO Q4H PRN PRN Reason: Pain, moderate (4-7) Stop: 11/25/16 08:22 Last Admin: 11/23/16 04:38 Dose: 2 tab Saccharomyces Boulardii (Florastor) 500 mg PO BID [facility] Last Admin: 11/22/16 18:29 Dose: 500 mg Vancomycin HCl (Vancocin (Oral Or Rectal Use)) 125 mg PO Q6 [facility] Last Admin: 11/23/16 05:03 Dose: 125 mg - Labs Labs: 11/21/16 07:05 11/21/16 07:05 PT 15.8 SECONDS (9.7-12.2) H 11/17/16 08:41 INR 1.4 11/17/16 08:41 APTT 32 SECONDS (21-34) 11/17/16 08:41 - Constitutional Appears: Non-toxic, No Acute Distress - Eye Exam Eye Exam: EOMI, Normal appearance - Respiratory Exam Respiratory Exam: NORMAL BREATHING PATTERN. absent: Respiratory Distress Additional comments: Right chest tube on suction, 0cc new output over past 24 hours No air leak Incision site with iodaform packing in place IR drain in place on suction with 40cc drainage over past 24 hours - Cardiovascular Exam Cardiovascular Exam: +S1, +S2 - Neurological Exam Neurological Exam: Alert, Awake, Oriented x3 - Psychiatric Exam Psychiatric exam: Normal Affect, Normal Mood - Skin Skin Exam: Dry, Normal Color, Warm Assessment and Plan - Assessment and Plan (Free Text) Assessment: 40M w. R parapneumonic effusion/empyema, s/p VATS converted to thoracotomy, w/ decortication and wedge resection POD#20 s/p IR CT guided pigtail placement on - Afebrile, VSS - Daily CXR - Chest tube on right on suction, no air leak, NO new output over past 24 hours - IR pigtail catheter in place with 40cc drainage over past 24 hours - 11/13 Pleural fluid cx: no growth final - 11/17 Pleural fluid from IR: cx w/ no growth final - 11/18 Incision site cx: no growth final - Iodaform packing changes BID - Dressing changes PRN - Removed chest tube today - CXR ordered for 4 hours later - Discussed plan with Dr. Hernando Avalos PGY-2
[2016-11-23] MEDS: (Novolog) Insulin Aspart, Recombinant 100 u/ml 10 ml vial SC SCH ×4 (08:01→22:09)
[2016-11-23 08:08] LABS: BASO % 0.3 % (0.0-2.0); EOS # 0.1 K/uL (0.0-0.7); EOS % 0.9 % (0.0-4.0); HEMATOCRIT 29.7 % (35.0-51.0); LYMPH % 31.3 % (20.0-40.0); MEAN CELL VOLUME 83.1 fL (80.0-94.0); MEAN CORPUSCULAR HEMOGLOBIN 26.8 pg (27.0-31.0); MEAN CORPUSCULAR HGB CONC 32.3 g/dL (33.0-37.0); MEAN PLATELET VOLUME 8.6 fL (7.2-11.7); MONO # 0.7 K/uL (0.0-0.8); MONO % 11.5 % (0.0-10.0); RED CELL DISTRIBUTION WIDTH 17.1 % (11.5-14.5); WHITE BLOOD COUNT 6.3 K/uL (4.8-10.8)
[2016-11-23 08:40] LABS: CHLORIDE 95 mmol/L (98-107)
[2016-11-23 08:41] LABS: SODIUM 132 mmol/L (132-148)
[2016-11-23 08:43] LABS: ALB/GLOB RATIO 0.7 (1.0-2.1); ALKALINE PHOSPHATASE 69 U/L (38-126); AST/SGOT 20 U/L (17-59); BILIRUBIN,TOTAL 0.7 mg/dL (0.2-1.3); BLOOD UREA NITROGEN 11 mg/dL (9-20); CARBON DIOXIDE 29 mmol/L (22-30); GFR AFRICAN-AMERICAN > 60; TOTAL PROTEIN 7.6 g/dL (6.3-8.3)
[2016-11-23 08:44] LABS: ALT/SGPT 18 U/L (21-72); CALCIUM 8.5 mg/dl (8.6-10.4); GLUCOSE,RANDOM 96 mg/dL (75-110)
--- NOTE | 2016-11-23 09:11 | RAD ---
HISTORY: Right chest tube, right pigtail COMPARISON: 11/22/2016 FINDINGS: LUNGS: Lines and tubes in stable position. Mild worsening of a right basilar loculated pleural effusion. Adjacent consolidative changes in the right mid to lower lung zone. Right apical pleural thickening. PLEURA: As above. CARDIOVASCULAR: Normal. OSSEOUS STRUCTURES: No significant abnormalities. VISUALIZED UPPER ABDOMEN: Normal. OTHER FINDINGS: None. IMPRESSION: Lines and tubes in stable position. Mild worsening of a right basilar loculated pleural effusion. Adjacent consolidative changes in the right mid to lower lung zone. Right apical pleural thickening.
[2016-11-23] MEDS: GlipiZIDE 2.5 mg Tab PO SCH (09:26)
[2016-11-23] MEDS: Saccharomyces Boulardi 250 mg Cap PO SCH ×2 (09:26→17:01)
[2016-11-23] MEDS: Insulin Detemir 100 units/ml Vial (Levemir) SC SCH ×2 (09:27→22:08)
--- NOTE | 2016-11-23 10:50 | CP.PCM.PN ---
<Zay Prado - Last Filed: 11/23/16 10:45> Subjective - Date & Time of Evaluation Date of Evaluation: 11/23/16 Time of Evaluation: 07:20 - Subjective Subjective: Cardiology Progress Note Dr. Lin Patient seen and examined at the bedside. No acute distress. Per pt, better pain control overnight. No other issues as per pt and nursing. Patient is POD #19 s/p thoracotomy with Dr. Villagomez. Denies SOB or chest pain today, but admits to persistence of pain/abnormal sensation at sites of chest tubes when taking deep breaths. The patient is resting comfortably in the bed at time of exam. He denies all other complaints this morning. 12 point review of systems was completed and negative except for the above, stated complaints. Per thoracic surgery, will likely remove chest tube today. Per primary, pending possible discharge to rehab Monday. Objective - Vital Signs/Intake and Output Vital Signs (last 24 hours): Temp Pulse Resp BP Pulse Ox 98.3 F 79 20 151/92 H 99 11/23/16 09:21 11/23/16 09:21 11/23/16 09:21 11/23/16 09:21 11/23/16 09:21 Intake and Output: 11/23/16 11/23/16 06:59 18:59 Intake Total 950 Output Total 1020 Balance -70 - Medications Medications: Current Medications Famotidine (Pepcid) 20 mg PO DAILY [facility] Last Admin: 11/23/16 09:27 Dose: 20 mg Folic Acid (Folic Acid) 1 mg PO DAILY [facility] Last Admin: 11/23/16 09:26 Dose: 1 mg Glipizide (Glucotrol) 2.5 mg PO DAILY [facility] Last Admin: 11/23/16 09:26 Dose: 2.5 mg Metronidazole (Flagyl) 500 mg in 100 mls @ 100 mls/hr IVPB Q8 [facility] Last Admin: 11/23/16 05:02 Dose: 100 mls/hr Imipenem/Cilastatin Sodium 1, (000 mg/ Sodium Chloride) 250 mls @ 250 mls/hr IVPB Q8H [facility] Last Admin: 11/23/16 08:05 Dose: 250 mls/hr Insulin Aspart (Novolog) 0 unit SC ACHS [facility] PRN Reason: Protocol Insulin Detemir (Levemir) 40 unit SC Q12 [facility] Last Admin: 11/23/16 09:27 Dose: 40 unit Lisinopril (Zestril) 20 mg PO DAILY [facility] Last Admin: 11/23/16 09:28 Dose: 20 mg Metoprolol Tartrate (Lopressor) 50 mg PO Q12H [facility] Last Admin: 11/23/16 08:05 Dose: 50 mg Morphine Sulfate (Morphine) 2 mg IVP Q4 PRN PRN Reason: Pain, severe (8-10) Last Admin: 11/23/16 08:09 Dose: 2 mg Ondansetron HCl (Zofran Inj) 4 mg IVP Q4 PRN PRN Reason: Nausea/Vomiting Last Admin: 11/21/16 10:19 Dose: 4 mg Oxycodone/Acetaminophen (Percocet 5/325 Mg Tab) 2 tab PO Q4H PRN PRN Reason: Pain, moderate (4-7) Stop: 11/25/16 08:22 Last Admin: 11/23/16 04:38 Dose: 2 tab Saccharomyces Boulardii (Florastor) 500 mg PO BID [facility] Last Admin: 11/23/16 09:26 Dose: 500 mg Vancomycin HCl (Vancocin (Oral Or Rectal Use)) 125 mg PO Q6 [facility] - Labs Labs: 11/23/16 08:03 11/23/16 08:03 PT 15.8 SECONDS (9.7-12.2) H 11/17/16 08:41 INR 1.4 11/17/16 08:41 APTT 32 SECONDS (21-34) 11/17/16 08:41 - Additional Findings Additional findings: - Constitutional Appears: Well, Non-toxic, No Acute Distress, Resting in bed comfortably - Head Exam Head Exam: ATRAUMATIC, NORMAL INSPECTION, NORMOCEPHALIC - Eye Exam Eye Exam: EOMI, Normal appearance. absent: Conjunctival injection, Scleral icterus Pupil Exam: absent: Irregular, Unequal - ENT Exam ENT Exam: Mucous Membranes Moist - Neck Exam Neck Exam: Full ROM. absent: Tenderness - Respiratory Exam Respiratory Exam: Chest Wall Tenderness (at and adjacent to site of R posterior chest tube and mid-back IR tube), Decreased Breath Sounds (mild decreased breath sounds, equal bilaterally, unchanged), Clear to Ausculation Bilateral, NORMAL BREATHING PATTERN, Posterior R-sided chest tube and mid-back chest in place on suction (minimal drainage in both). absent: Accessory Muscle Use, Rales, Rhonchi, Wheezes - Cardiovascular Exam Cardiovascular Exam: REGULAR RHYTHM, RRR, +S1, +S2. absent: Bradycardia, Tachycardia, Systolic or Diastolic murmurs, Clicks - GI/Abdominal Exam GI & Abdominal Exam: Soft, Normal Bowel Sounds. absent: Distended, Firm, Rigid , Tenderness, Diminished Bowel Sounds, Hypoactive Bowel Sounds - Extremities Exam Extremities Exam: Full ROM, Normal Capillary Refill, Pedal Edema (+1 pitting edema bilateral LE extending up to mid moore, wearing compression stockings). absent: Tenderness, Calf Tenderness, Joint Swelling, Normal Inspection - Neurological Exam Neurological Exam: Alert, Awake, CN II-XII Intact, Oriented x3 - Psychiatric Exam Psychiatric exam: Normal Mood, Normal Affect - Skin Skin Exam: Dry, Intact (except at site of 2 active chest tubes described above and healing site of R-anterior tube removed previously), Normal Color, Warm Assessment and Plan (1) Tachycardia Assessment & Plan: 11/04/16 ELG- sinus tachycardia, physiologic axis, normal WI interval, normal QRS duration, prolonged QTc, poor R wave progression, no ST or T wave abnormalities 11/02/16 EKG- sinus tachycardia, right axis deviation, normal WI interval, normal QRS duration, prolonged QTc, nonspecific ST/T wave abnormality 11/03/15 Echo- EF 53%, normal diastolic filling pressures Troponin negative x 2 (<0.0120 x 2) CK-MB negative x 2 (1.00 > 0.63) BNP 102 (normal) -cardiac stable at this point -no further tachycardia noted on recorded vitals, patient denies any racing heartbeat -will continue to monitor -continue Lopressor 50mg PO q12 Status: Resolved (2) Bilateral lower extremity edema Assessment & Plan: -Continue Lasix 20mg IVP q12 -José hose stockings, ambulating with PT as tolerated -Encourage patient to keep legs elevated and not flat or dangling off of bed when lying down Status: Resolved (3) Pre-procedural cardiovascular examination Assessment & Plan: -Cardiac Risk Assessment- Low Risk (POD #10 s/p VATS) - Detsky Score 10: Class I - Low Risk - Jenkins Score 3: Class I - Low Risk - Tunde Score 2- Moderate Risk Status: Resolved - Assessment and Plan (Free Text) Assessment: Case discussed with Dr Lin. <Saravanan Lin - Last Filed: 11/25/16 19:49> Objective - Vital Signs/Intake and Output Vital Signs (last 24 hours): Temp Pulse Resp BP Pulse Ox 98.3 F 89 0 L 127/84 97 11/25/16 15:52 11/25/16 15:52 11/25/16 15:52 11/25/16 15:52 11/25/16 15:52 - Medications Medications: Current Medications Albuterol/Ipratropium (Duoneb 3 Mg/0.5 Mg (3 Ml) Ud) 3 ml INH RQ6 [facility] Last Admin: 11/25/16 19:21 Dose: 3 ml Famotidine (Pepcid) 20 mg PO DAILY [facility] Last Admin: 11/25/16 09:52 Dose: 20 mg Folic Acid (Folic Acid) 1 mg PO DAILY [facility] Last Admin: 11/25/16 09:53 Dose: 1 mg Glipizide (Glucotrol) 2.5 mg PO DAILY [facility] Last Admin: 11/25/16 09:50 Dose: 2.5 mg Guaifenesin/Dextromethorphan (Robitussin Dm) 10 ml PO Q4H PRN PRN Reason: Cough and congestion Last Admin: 11/25/16 12:42 Dose: 10 ml Metronidazole (Flagyl) 500 mg in 100 mls @ 100 mls/hr IVPB Q8 [facility] Last Admin: 11/25/16 05:05 Dose: 100 mls/hr Imipenem/Cilastatin Sodium 1, (000 mg/ Sodium Chloride) 250 mls @ 250 mls/hr IVPB Q8H [facility] Last Admin: 11/25/16 17:34 Dose: 250 mls/hr Insulin Aspart (Novolog) 0 unit SC ACHS [facility] PRN Reason: Protocol Last Admin: 11/25/16 17:35 Dose: 4 unit Insulin Detemir (Levemir) 40 unit SC Q12 [facility] Last Admin: 11/25/16 12:36 Dose: 40 unit Lisinopril (Zestril) 20 mg PO DAILY [facility] Last Admin: 11/25/16 09:51 Dose: 20 mg Metoprolol Tartrate (Lopressor) 50 mg PO Q12H [facility] Last Admin: 11/25/16 09:51 Dose: 50 mg Morphine Sulfate (Morphine) 2 mg IVP Q4 PRN PRN Reason: Pain, severe (8-10) Last Admin: 11/25/16 17:42 Dose: 2 mg Ondansetron HCl (Zofran Inj) 4 mg IVP Q4 PRN PRN Reason: Nausea/Vomiting Last Admin: 11/21/16 10:19 Dose: 4 mg Saccharomyces Boulardii (Florastor) 500 mg PO BID [facility] Last Admin: 11/25/16 17:36 Dose: 500 mg Vancomycin HCl (Vancocin (Oral Or Rectal Use)) 125 mg PO Q6 [facility] Last Admin: 11/25/16 17:42 Dose: 125 mg - Labs Labs: 11/23/16 08:03 11/23/16 08:03 PT 15.8 SECONDS (9.7-12.2) H 11/17/16 08:41 INR 1.4 11/17/16 08:41 APTT 32 SECONDS (21-34) 11/17/16 08:41 Attending/Attestation - Attestation I have personally seen and examined this patient.: Yes I have fully participated in the care of the patient.: Yes I have reviewed all pertinent clinical information, including history, physical exam and plan: Yes Notes (Text): 11/25/16 19:49 ID on case possible chest tube removal no tachycardia hempdynamically stable
--- NOTE | 2016-11-23 11:33 | CP.PCM.PN ---
Subjective - Date & Time of Evaluation Date of Evaluation: 11/23/16 Time of Evaluation: 11:32 - Subjective Subjective: Dr brizuela's progress note reviewed and concur with a/p. Objective - Vital Signs/Intake and Output Vital Signs (last 24 hours): Temp Pulse Resp BP Pulse Ox 98.3 F 79 20 151/92 H 99 11/23/16 09:21 11/23/16 09:21 11/23/16 09:21 11/23/16 09:21 11/23/16 09:21 Intake and Output: 11/23/16 11/23/16 06:59 18:59 Intake Total 950 Output Total 1020 Balance -70 - Medications Medications: Current Medications Famotidine (Pepcid) 20 mg PO DAILY [facility] Last Admin: 11/23/16 09:27 Dose: 20 mg Folic Acid (Folic Acid) 1 mg PO DAILY [facility] Last Admin: 11/23/16 09:26 Dose: 1 mg Glipizide (Glucotrol) 2.5 mg PO DAILY [facility] Last Admin: 11/23/16 09:26 Dose: 2.5 mg Metronidazole (Flagyl) 500 mg in 100 mls @ 100 mls/hr IVPB Q8 [facility] Last Admin: 11/23/16 05:02 Dose: 100 mls/hr Imipenem/Cilastatin Sodium 1, (000 mg/ Sodium Chloride) 250 mls @ 250 mls/hr IVPB Q8H [facility] Last Admin: 11/23/16 08:05 Dose: 250 mls/hr Insulin Aspart (Novolog) 0 unit SC ACHS [facility] PRN Reason: Protocol Last Admin: 11/23/16 11:29 Dose: 1 unit Insulin Detemir (Levemir) 40 unit SC Q12 [facility] Last Admin: 11/23/16 09:27 Dose: 40 unit Lisinopril (Zestril) 20 mg PO DAILY [facility] Last Admin: 11/23/16 09:28 Dose: 20 mg Metoprolol Tartrate (Lopressor) 50 mg PO Q12H [facility] Last Admin: 11/23/16 08:05 Dose: 50 mg Morphine Sulfate (Morphine) 2 mg IVP Q4 PRN PRN Reason: Pain, severe (8-10) Last Admin: 11/23/16 08:09 Dose: 2 mg Ondansetron HCl (Zofran Inj) 4 mg IVP Q4 PRN PRN Reason: Nausea/Vomiting Last Admin: 11/21/16 10:19 Dose: 4 mg Oxycodone/Acetaminophen (Percocet 5/325 Mg Tab) 2 tab PO Q4H PRN PRN Reason: Pain, moderate (4-7) Stop: 11/25/16 08:22 Last Admin: 11/23/16 04:38 Dose: 2 tab Saccharomyces Boulardii (Florastor) 500 mg PO BID [facility] Last Admin: 11/23/16 09:26 Dose: 500 mg Vancomycin HCl (Vancocin (Oral Or Rectal Use)) 125 mg PO Q6 [facility] Last Admin: 11/23/16 11:29 Dose: 125 mg - Labs Labs: 11/23/16 08:03 11/23/16 08:03 PT 15.8 SECONDS (9.7-12.2) H 11/17/16 08:41 INR 1.4 11/17/16 08:41 APTT 32 SECONDS (21-34) 11/17/16 08:41
--- NOTE | 2016-11-23 14:48 | RAD ---
HISTORY: PICC LINE PLACEMENT COMPARISON: 11/23/2016 at 7:47 a.m. FINDINGS: LUNGS: Linear atelectasis adjacent to right hilum. No pulmonary infiltrate identified. PLEURA: Right pleural effusion, moderate, unchanged. Right pigtail drainage catheter unchanged in position. Large bore right chest tube has been removed. No pneumothorax. CARDIOVASCULAR: Normal heart size. No congestive change. New right PICC catheter appears to terminate at approximately the level of the cavoatrial junction. OSSEOUS STRUCTURES: No significant abnormalities. VISUALIZED UPPER ABDOMEN: Normal. OTHER FINDINGS: None. IMPRESSION: Removal of large bore right chest tube. Moderate right pleural effusion. Pigtail drainage catheter noted. No pneumothorax. New right PICC catheter terminates at approximately the level of the cavoatrial junction.
--- NOTE | 2016-11-23 17:24 | CP.PCM.PN ---
Subjective - Date & Time of Evaluation Date of Evaluation: 11/23/16 Time of Evaluation: 17:21 - Subjective Subjective: INFECTIOUS DISEASE PROGRESS NOTE MARIA DIAZ MD, FACP 6T 671-B 11/23/2016 CHART REVIEWED PT EXAMINED CASE DISCUSSED CLINICALLY LOOKS STABLE PICC LINE IS IN HIS RIGHT ARM LAST OF THE LARGE CHEST TUBES HAS BEEN REMOVED STILL WITH HIS LAST POSTERIOR CHEST IR TUBE IN, AND DRAINING. Objective - Vital Signs/Intake and Output Vital Signs (last 24 hours): Temp Pulse Resp BP Pulse Ox 98.2 F 88 18 142/87 98 11/23/16 15:44 11/23/16 15:44 11/23/16 15:44 11/23/16 15:44 11/23/16 15:44 Intake and Output: 11/23/16 11/23/16 06:59 18:59 Intake Total 950 Output Total 1020 30 Balance -70 -30 - Medications Medications: Current Medications Famotidine (Pepcid) 20 mg PO DAILY [facility] Last Admin: 11/23/16 09:27 Dose: 20 mg Folic Acid (Folic Acid) 1 mg PO DAILY [facility] Last Admin: 11/23/16 09:26 Dose: 1 mg Glipizide (Glucotrol) 2.5 mg PO DAILY [facility] Last Admin: 11/23/16 09:26 Dose: 2.5 mg Metronidazole (Flagyl) 500 mg in 100 mls @ 100 mls/hr IVPB Q8 [facility] Last Admin: 11/23/16 14:54 Dose: 100 mls/hr Imipenem/Cilastatin Sodium 1, (000 mg/ Sodium Chloride) 250 mls @ 250 mls/hr IVPB Q8H [facility] Last Admin: 11/23/16 17:03 Dose: 250 mls/hr Insulin Aspart (Novolog) 0 unit SC ACHS [facility] PRN Reason: Protocol Last Admin: 11/23/16 17:02 Dose: 2 unit Insulin Detemir (Levemir) 40 unit SC Q12 [facility] Last Admin: 11/23/16 09:27 Dose: 40 unit Lisinopril (Zestril) 20 mg PO DAILY [facility] Last Admin: 11/23/16 09:28 Dose: 20 mg Metoprolol Tartrate (Lopressor) 50 mg PO Q12H [facility] Last Admin: 11/23/16 08:05 Dose: 50 mg Morphine Sulfate (Morphine) 2 mg IVP Q4 PRN PRN Reason: Pain, severe (8-10) Last Admin: 11/23/16 08:09 Dose: 2 mg Ondansetron HCl (Zofran Inj) 4 mg IVP Q4 PRN PRN Reason: Nausea/Vomiting Last Admin: 11/21/16 10:19 Dose: 4 mg Oxycodone/Acetaminophen (Percocet 5/325 Mg Tab) 2 tab PO Q4H PRN PRN Reason: Pain, moderate (4-7) Stop: 11/25/16 08:22 Last Admin: 11/23/16 13:27 Dose: 2 tab Saccharomyces Boulardii (Florastor) 500 mg PO BID [facility] Last Admin: 11/23/16 17:01 Dose: 500 mg Vancomycin HCl (Vancocin (Oral Or Rectal Use)) 125 mg PO Q6 [facility] Last Admin: 11/23/16 17:04 Dose: 125 mg - Labs Labs: 11/23/16 08:03 11/23/16 08:03 PT 15.8 SECONDS (9.7-12.2) H 11/17/16 08:41 INR 1.4 11/17/16 08:41 APTT 32 SECONDS (21-34) 11/17/16 08:41 - Constitutional Appears: Non-toxic, No Acute Distress, Chronically Ill - Eye Exam Eye Exam: Normal appearance - ENT Exam ENT Exam: Mucous Membranes Moist - Neck Exam Neck Exam: Normal Inspection - Respiratory Exam Respiratory Exam: Decreased Breath Sounds, NORMAL BREATHING PATTERN - Cardiovascular Exam Cardiovascular Exam: REGULAR RHYTHM - GI/Abdominal Exam GI & Abdominal Exam: Soft, Normal Bowel Sounds. absent: Tenderness - Rectal Exam Rectal Exam: Deferred - Neurological Exam Neurological Exam: Alert, Awake - Psychiatric Exam Psychiatric exam: Anxious, Normal Affect, Normal Mood - Skin Skin Exam: Warm Assessment and Plan (1) Empyema Status: Acute (2) Pneumonia Status: Acute (3) Pleural effusion on right Status: Acute (4) Bilateral lower extremity edema Status: Resolved (5) Anemia Status: Chronic (6) Hyperglycemia Status: Acute (7) HTN (hypertension) Status: Chronic (8) Diarrhea Status: Acute
--- NOTE | 2016-11-23 20:20 | CP.PCM.PN ---
Subjective - Date & Time of Evaluation Date of Evaluation: 11/23/16 Time of Evaluation: 20:19 - Subjective Subjective: The right-sided chest tube was removed today. Patient was doing well. Currently he is complaining of some cough. Patient has no distress. Otherwise, vital signs stable. This morning. Labs reviewed. No nausea vomiting. On examination: Vital signs reviewed. Chest good air entry bilaterally regular heart sound. Nontender abdomen, no pedal edema, [employer] alert awake oriented x3 no functional neurological deficit. Labs reviewed. Chest x-ray. Right-sided PICC line noted. Right lower lung base haziness noted. Pigtail catheter noted in the right lung base. Assessment and recommendation: 40-year-old male with history of ongoing pneumoniae empyema status post a matched. On IV antibiotic. Discuss with infectious disease. Patient may need 3 weeks of antibiotic. Will continue the current treatment and will follow the patient Objective - Vital Signs/Intake and Output Vital Signs (last 24 hours): Temp Pulse Resp BP Pulse Ox 98.2 F 88 18 142/87 98 11/23/16 15:44 11/23/16 15:44 11/23/16 15:44 11/23/16 15:44 11/23/16 15:44 Intake and Output: 11/23/16 11/24/16 18:59 06:59 Output Total 30 Balance -30 - Medications Medications: Current Medications Albuterol/Ipratropium (Duoneb 3 Mg/0.5 Mg (3 Ml) Ud) 3 ml INH RQ6 [facility] Famotidine (Pepcid) 20 mg PO DAILY [facility] Last Admin: 11/23/16 09:27 Dose: 20 mg Folic Acid (Folic Acid) 1 mg PO DAILY [facility] Last Admin: 11/23/16 09:26 Dose: 1 mg Glipizide (Glucotrol) 2.5 mg PO DAILY [facility] Last Admin: 11/23/16 09:26 Dose: 2.5 mg Metronidazole (Flagyl) 500 mg in 100 mls @ 100 mls/hr IVPB Q8 [facility] Last Admin: 11/23/16 14:54 Dose: 100 mls/hr Imipenem/Cilastatin Sodium 1, (000 mg/ Sodium Chloride) 250 mls @ 250 mls/hr IVPB Q8H [facility] Last Admin: 11/23/16 17:03 Dose: 250 mls/hr Insulin Aspart (Novolog) 0 unit SC ACHS [facility] PRN Reason: Protocol Last Admin: 11/23/16 17:02 Dose: 2 unit Insulin Detemir (Levemir) 40 unit SC Q12 [facility] Last Admin: 11/23/16 09:27 Dose: 40 unit Lisinopril (Zestril) 20 mg PO DAILY [facility] Last Admin: 11/23/16 09:28 Dose: 20 mg Metoprolol Tartrate (Lopressor) 50 mg PO Q12H [facility] Last Admin: 11/23/16 08:05 Dose: 50 mg Morphine Sulfate (Morphine) 2 mg IVP Q4 PRN PRN Reason: Pain, severe (8-10) Last Admin: 11/23/16 19:55 Dose: 2 mg Ondansetron HCl (Zofran Inj) 4 mg IVP Q4 PRN PRN Reason: Nausea/Vomiting Last Admin: 11/21/16 10:19 Dose: 4 mg Oxycodone/Acetaminophen (Percocet 5/325 Mg Tab) 2 tab PO Q4H PRN PRN Reason: Pain, moderate (4-7) Stop: 11/25/16 08:22 Last Admin: 11/23/16 13:27 Dose: 2 tab Saccharomyces Boulardii (Florastor) 500 mg PO BID [facility] Last Admin: 11/23/16 17:01 Dose: 500 mg Vancomycin HCl (Vancocin (Oral Or Rectal Use)) 125 mg PO Q6 [facility] Last Admin: 11/23/16 17:04 Dose: 125 mg - Labs Labs: 11/23/16 08:03 11/23/16 08:03 PT 15.8 SECONDS (9.7-12.2) H 11/17/16 08:41 INR 1.4 11/17/16 08:41 APTT 32 SECONDS (21-34) 11/17/16 08:41
[2016-11-23] MEDS: Albuterol-Ipratrop 3 mg / 0.5 (3 ml) UD INH SCH (21:48)
[2016-11-24] MEDS: Albuterol-Ipratrop 3 mg / 0.5 (3 ml) UD INH SCH ×3 (08:05→19:24)
--- NOTE | 2016-11-24 08:51 | RAD ---
HISTORY: Pneumothorax COMPARISON: 11/23/2016 FINDINGS: LUNGS: Lines and tubes in stable position. Persistent small loculated right-sided pleural effusion with adjacent consolidative changes. Right paratracheal airspace opacity may represent prominent vasculature. PLEURA: As above. CARDIOVASCULAR: Mild cardiomegaly. OSSEOUS STRUCTURES: No significant abnormalities. VISUALIZED UPPER ABDOMEN: Normal. OTHER FINDINGS: None. IMPRESSION: Lines and tubes in stable position. Persistent small loculated right-sided pleural effusion with adjacent consolidative changes. Right paratracheal airspace opacity may represent prominent vasculature.
--- NOTE | 2016-11-24 09:07 | RAD ---
HISTORY: Right chest tube, right pigtail COMPARISON: 11/23/2016 FINDINGS: LUNGS: Lines and tubes in stable position. Persistent small to moderate loculated right pleural effusion with adjacent consolidative changes in the right mid to lower lung zone. PLEURA: As above. CARDIOVASCULAR: Normal. OSSEOUS STRUCTURES: No significant abnormalities. VISUALIZED UPPER ABDOMEN: Normal. OTHER FINDINGS: None. IMPRESSION: Lines and tubes in stable position. Persistent small to moderate loculated right pleural effusion with adjacent consolidative changes in the right mid to lower lung zone.
--- NOTE | 2016-11-24 20:16 | CP.PCM.PN ---
Subjective - Date & Time of Evaluation Date of Evaluation: 11/24/16 Time of Evaluation: 20:14 - Subjective Subjective: INFECTIOUS DISEASE PROGRESS NOTE 6T 654 11/24/2016 MARIA DIAZ MD, FACP CHART REVIEWED PT EXAMINED CASE DISCUSSED SINGLE POSTERIOR CHEST TUBE STILL IN PLACE AFEBRILE, NO N,V,D,C, ONLY MILD VAGUE COUGH OCC. ABLE TO EAT WELL TODAY Objective - Vital Signs/Intake and Output Vital Signs (last 24 hours): Temp Pulse Resp BP Pulse Ox 98.6 F 94 H 20 144/88 96 11/23/16 22:30 11/23/16 22:30 11/23/16 22:30 11/23/16 22:30 11/23/16 22:30 - Medications Medications: Current Medications Albuterol/Ipratropium (Duoneb 3 Mg/0.5 Mg (3 Ml) Ud) 3 ml INH RQ6 [facility] Last Admin: 11/24/16 19:24 Dose: 3 ml Famotidine (Pepcid) 20 mg PO DAILY [facility] Last Admin: 11/23/16 09:27 Dose: 20 mg Folic Acid (Folic Acid) 1 mg PO DAILY [facility] Last Admin: 11/23/16 09:26 Dose: 1 mg Glipizide (Glucotrol) 2.5 mg PO DAILY [facility] Last Admin: 11/23/16 09:26 Dose: 2.5 mg Metronidazole (Flagyl) 500 mg in 100 mls @ 100 mls/hr IVPB Q8 [facility] Last Admin: 11/23/16 22:06 Dose: 100 mls/hr Imipenem/Cilastatin Sodium 1, (000 mg/ Sodium Chloride) 250 mls @ 250 mls/hr IVPB Q8H [facility] Last Admin: 11/23/16 17:03 Dose: 250 mls/hr Insulin Aspart (Novolog) 0 unit SC ACHS [facility] PRN Reason: Protocol Last Admin: 11/23/16 22:09 Dose: Not Given Insulin Detemir (Levemir) 40 unit SC Q12 [facility] Last Admin: 11/23/16 22:08 Dose: 40 unit Lisinopril (Zestril) 20 mg PO DAILY [facility] Last Admin: 11/23/16 09:28 Dose: 20 mg Metoprolol Tartrate (Lopressor) 50 mg PO Q12H [facility] Last Admin: 11/23/16 22:09 Dose: 50 mg Morphine Sulfate (Morphine) 2 mg IVP Q4 PRN PRN Reason: Pain, severe (8-10) Last Admin: 11/23/16 19:55 Dose: 2 mg Ondansetron HCl (Zofran Inj) 4 mg IVP Q4 PRN PRN Reason: Nausea/Vomiting Last Admin: 11/21/16 10:19 Dose: 4 mg Oxycodone/Acetaminophen (Percocet 5/325 Mg Tab) 2 tab PO Q4H PRN PRN Reason: Pain, moderate (4-7) Stop: 11/25/16 08:22 Last Admin: 11/23/16 22:28 Dose: 2 tab Saccharomyces Boulardii (Florastor) 500 mg PO BID [facility] Last Admin: 11/23/16 17:01 Dose: 500 mg Vancomycin HCl (Vancocin (Oral Or Rectal Use)) 125 mg PO Q6 [facility] Last Admin: 11/23/16 17:04 Dose: 125 mg - Labs Labs: 11/23/16 08:03 11/23/16 08:03 PT 15.8 SECONDS (9.7-12.2) H 11/17/16 08:41 INR 1.4 11/17/16 08:41 APTT 32 SECONDS (21-34) 11/17/16 08:41 - Constitutional Appears: Non-toxic, No Acute Distress, Chronically Ill - Eye Exam Eye Exam: Normal appearance - ENT Exam ENT Exam: Mucous Membranes Moist - Neck Exam Neck Exam: Normal Inspection - Respiratory Exam Respiratory Exam: Decreased Breath Sounds, NORMAL BREATHING PATTERN Additional comments: DEFINITE DECREASED BREATH SOUNDS RIGHT LOWER LOBE - Cardiovascular Exam Cardiovascular Exam: REGULAR RHYTHM - GI/Abdominal Exam GI & Abdominal Exam: Soft, Normal Bowel Sounds. absent: Tenderness - Rectal Exam Rectal Exam: Deferred - Extremities Exam Extremities Exam: Normal Capillary Refill, Normal Inspection. absent: Calf Tenderness - Neurological Exam Neurological Exam: Alert, Awake - Psychiatric Exam Psychiatric exam: Anxious, Normal Affect, Normal Mood - Skin Skin Exam: Warm Assessment and Plan (1) Empyema Assessment & Plan: RECOMMEND FOLLOW AT [facility]. Status: Acute (2) Pneumonia Status: Suspected (3) Pleural effusion on right Status: Acute (4) Bilateral lower extremity edema Status: Resolved (5) Anemia Status: Chronic (6) Hyperglycemia Status: Acute (7) HTN (hypertension) Status: Chronic (8) Diarrhea Status: Resolved (9) Diabetes 1.5, managed as type 2 Status: Chronic
[2016-11-24] MEDS: (Novolog) Insulin Aspart, Recombinant 100 u/ml 10 ml vial SC SCH (22:16)
[2016-11-24] MEDS: Insulin Detemir 100 units/ml Vial (Levemir) SC SCH (22:17)
[2016-11-24] MEDS: metroNIDAZOLE IV 500 mg/100 ml 500 MG/100 ML BAG IVPB SCH (22:18)
[2016-11-24] MEDS: Oxycodone/Acetaminophen 5/325 mg Tab PO PRN (22:25)
[2016-11-25] MEDS: Vancomycin 125 MG/5 ML SOLN (ORAL/RECTAL) PO SCH ×4 (00:30→17:42)
[2016-11-25] MEDS: Albuterol-Ipratrop 3 mg / 0.5 (3 ml) UD INH SCH ×4 (01:04→19:21)
[2016-11-25] MEDS: metroNIDAZOLE IV 500 mg/100 ml 500 MG/100 ML BAG IVPB SCH ×3 (05:05→21:33)
[2016-11-25] MEDS: (Novolog) Insulin Aspart, Recombinant 100 u/ml 10 ml vial SC SCH ×4 (07:30→21:25)
[2016-11-25] MEDS ORDERED: guaiFENesin DM 200 mg-20 mg/10 ml UD PO STA (07:52)
--- NOTE | 2016-11-25 09:40 | CP.PCM.PN ---
<Zay Prado - Last Filed: 11/25/16 09:37> Subjective - Date & Time of Evaluation Date of Evaluation: 11/25/16 Time of Evaluation: 07:20 - Subjective Subjective: Cardiology Progress Note Dr. Lin Patient seen and examined at the bedside. No acute distress. Per pt, better pain control overnight, but persisting dry cough causing some discomfort. No other issues as per pt and nursing. Patient is POD #22 s/p thoracotomy with Dr. Villagomez. Denies SOB today, some lateral chest pain 2/2 coughing spells. The patient is resting comfortably in the bed at time of exam except when experiencing coughing spells. He denies all other complaints this morning. 12 point review of systems was completed and negative except for the above, stated complaints. Currently, only the mid-back pigtail drain remains; all other chest tubes have been removed. Objective - Vital Signs/Intake and Output Vital Signs (last 24 hours): Temp Pulse Resp BP Pulse Ox 97.8 F 95 H 20 129/86 95 11/25/16 08:50 11/25/16 08:50 11/25/16 08:50 11/25/16 08:50 11/25/16 08:50 Intake and Output: 11/25/16 11/25/16 06:59 18:59 Intake Total 1340 Output Total 1340 Balance 0 - Medications Medications: Current Medications Albuterol/Ipratropium (Duoneb 3 Mg/0.5 Mg (3 Ml) Ud) 3 ml INH RQ6 [facility] Last Admin: 11/25/16 07:25 Dose: 3 ml Famotidine (Pepcid) 20 mg PO DAILY [facility] Last Admin: 11/23/16 09:27 Dose: 20 mg Folic Acid (Folic Acid) 1 mg PO DAILY [facility] Last Admin: 11/23/16 09:26 Dose: 1 mg Glipizide (Glucotrol) 2.5 mg PO DAILY [facility] Last Admin: 11/23/16 09:26 Dose: 2.5 mg Guaifenesin/Dextromethorphan (Robitussin Dm) 10 ml PO Q4H PRN PRN Reason: Cough and congestion Metronidazole (Flagyl) 500 mg in 100 mls @ 100 mls/hr IVPB Q8 [facility] Last Admin: 11/25/16 05:05 Dose: 100 mls/hr Imipenem/Cilastatin Sodium 1, (000 mg/ Sodium Chloride) 250 mls @ 250 mls/hr IVPB Q8H [facility] Last Admin: 11/25/16 00:30 Dose: 250 mls/hr Insulin Aspart (Novolog) 0 unit SC ACHS [facility] PRN Reason: Protocol Last Admin: 11/24/16 22:16 Dose: 2 unit Insulin Detemir (Levemir) 40 unit SC Q12 [facility] Last Admin: 11/24/16 22:17 Dose: 40 unit Lisinopril (Zestril) 20 mg PO DAILY [facility] Last Admin: 11/23/16 09:28 Dose: 20 mg Metoprolol Tartrate (Lopressor) 50 mg PO Q12H [facility] Last Admin: 11/24/16 22:16 Dose: 50 mg Morphine Sulfate (Morphine) 2 mg IVP Q4 PRN PRN Reason: Pain, severe (8-10) Last Admin: 11/25/16 08:02 Dose: 2 mg Ondansetron HCl (Zofran Inj) 4 mg IVP Q4 PRN PRN Reason: Nausea/Vomiting Last Admin: 11/21/16 10:19 Dose: 4 mg Saccharomyces Boulardii (Florastor) 500 mg PO BID [facility] Last Admin: 11/23/16 17:01 Dose: 500 mg Vancomycin HCl (Vancocin (Oral Or Rectal Use)) 125 mg PO Q6 [facility] Last Admin: 11/25/16 05:06 Dose: 125 mg - Labs Labs: 11/23/16 08:03 11/23/16 08:03 PT 15.8 SECONDS (9.7-12.2) H 11/17/16 08:41 INR 1.4 11/17/16 08:41 APTT 32 SECONDS (21-34) 11/17/16 08:41 - Additional Findings Additional findings: - Constitutional Appears: Well, Non-toxic, No Acute Distress, Resting in bed comfortably - Head Exam Head Exam: ATRAUMATIC, NORMAL INSPECTION, NORMOCEPHALIC - Eye Exam Eye Exam: EOMI, Normal appearance. absent: Conjunctival injection, Scleral icterus Pupil Exam: absent: Irregular, Unequal - ENT Exam ENT Exam: Mucous Membranes Moist - Neck Exam Neck Exam: Full ROM. absent: Tenderness - Respiratory Exam Respiratory Exam: Chest Wall Tenderness (at and adjacent to site of mid-back pigtail drain, bilateral lateral chest wall tenderness with coughing spells), Decreased Breath Sounds (mild decreased breath sounds, equal bilaterally, unchanged), Clear to Ausculation Bilateral, NORMAL BREATHING PATTERN, Mid-back pigtail drain in place on suction (30cc drainage in 24 hrs). absent: Accessory Muscle Use, Rales, Rhonchi, Wheezes - Cardiovascular Exam Cardiovascular Exam: REGULAR RHYTHM, RRR, +S1, +S2. absent: Bradycardia, Tachycardia, Systolic or Diastolic murmurs, Clicks - GI/Abdominal Exam GI & Abdominal Exam: Soft, Normal Bowel Sounds. absent: Distended, Firm, Rigid , Tenderness, Diminished Bowel Sounds, Hypoactive Bowel Sounds - Extremities Exam Extremities Exam: Full ROM, Normal Capillary Refill, Pedal Edema (+1 pitting edema bilateral LE extending up to mid moore, wearing compression stockings). absent: Tenderness, Calf Tenderness, Joint Swelling, Normal Inspection - Neurological Exam Neurological Exam: Alert, Awake, CN II-XII Intact, Oriented x3 - Psychiatric Exam Psychiatric exam: Normal Mood, Normal Affect - Skin Skin Exam: Dry, Intact (except at site of two prior chest tubes and at site of remaining pigtail drain), Normal Color, Warm Assessment and Plan (1) Tachycardia Assessment & Plan: 11/04/16 ELG- sinus tachycardia, physiologic axis, normal KS interval, normal QRS duration, prolonged QTc, poor R wave progression, no ST or T wave abnormalities 11/02/16 EKG- sinus tachycardia, right axis deviation, normal KS interval, normal QRS duration, prolonged QTc, nonspecific ST/T wave abnormality 11/03/15 Echo- EF 53%, normal diastolic filling pressures Troponin negative x 2 (<0.0120 x 2) CK-MB negative x 2 (1.00 > 0.63) BNP 102 (normal) -cardiac stable at this point -no further tachycardia noted on recorded vitals, patient denies any racing heartbeat -will continue to monitor -continue Lopressor 50mg PO q12 Status: Resolved (2) Bilateral lower extremity edema Assessment & Plan: -Continue Lasix 20mg IVP q12 -José hose stockings, ambulating with PT as tolerated -Encourage patient to keep legs elevated and not flat or dangling off of bed when lying down Status: Resolved (3) Pre-procedural cardiovascular examination Assessment & Plan: -Cardiac Risk Assessment- Low Risk (POD #10 s/p VATS) - Detsky Score 10: Class I - Low Risk - Jenkins Score 3: Class I - Low Risk - Tunde Score 2- Moderate Risk Status: Resolved - Assessment and Plan (Free Text) Assessment: Case discussed with Dr. Lin <Saravanan Lin - Last Filed: 11/25/16 19:48> Objective - Vital Signs/Intake and Output Vital Signs (last 24 hours): Temp Pulse Resp BP Pulse Ox 98.3 F 89 0 L 127/84 97 11/25/16 15:52 11/25/16 15:52 11/25/16 15:52 11/25/16 15:52 11/25/16 15:52 - Medications Medications: Current Medications Albuterol/Ipratropium (Duoneb 3 Mg/0.5 Mg (3 Ml) Ud) 3 ml INH RQ6 [facility] Last Admin: 11/25/16 19:21 Dose: 3 ml Famotidine (Pepcid) 20 mg PO DAILY [facility] Last Admin: 11/25/16 09:52 Dose: 20 mg Folic Acid (Folic Acid) 1 mg PO DAILY [facility] Last Admin: 11/25/16 09:53 Dose: 1 mg Glipizide (Glucotrol) 2.5 mg PO DAILY [facility] Last Admin: 11/25/16 09:50 Dose: 2.5 mg Guaifenesin/Dextromethorphan (Robitussin Dm) 10 ml PO Q4H PRN PRN Reason: Cough and congestion Last Admin: 11/25/16 12:42 Dose: 10 ml Metronidazole (Flagyl) 500 mg in 100 mls @ 100 mls/hr IVPB Q8 [facility] Last Admin: 11/25/16 05:05 Dose: 100 mls/hr Imipenem/Cilastatin Sodium 1, (000 mg/ Sodium Chloride) 250 mls @ 250 mls/hr IVPB Q8H [facility] Last Admin: 11/25/16 17:34 Dose: 250 mls/hr Insulin Aspart (Novolog) 0 unit SC ACHS [facility] PRN Reason: Protocol Last Admin: 11/25/16 17:35 Dose: 4 unit Insulin Detemir (Levemir) 40 unit SC Q12 [facility] Last Admin: 11/25/16 12:36 Dose: 40 unit Lisinopril (Zestril) 20 mg PO DAILY [facility] Last Admin: 11/25/16 09:51 Dose: 20 mg Metoprolol Tartrate (Lopressor) 50 mg PO Q12H [facility] Last Admin: 11/25/16 09:51 Dose: 50 mg Morphine Sulfate (Morphine) 2 mg IVP Q4 PRN PRN Reason: Pain, severe (8-10) Last Admin: 11/25/16 17:42 Dose: 2 mg Ondansetron HCl (Zofran Inj) 4 mg IVP Q4 PRN PRN Reason: Nausea/Vomiting Last Admin: 11/21/16 10:19 Dose: 4 mg Saccharomyces Boulardii (Florastor) 500 mg PO BID [facility] Last Admin: 11/25/16 17:36 Dose: 500 mg Vancomycin HCl (Vancocin (Oral Or Rectal Use)) 125 mg PO Q6 [facility] Last Admin: 11/25/16 17:42 Dose: 125 mg - Labs Labs: 11/23/16 08:03 11/23/16 08:03 PT 15.8 SECONDS (9.7-12.2) H 11/17/16 08:41 INR 1.4 11/17/16 08:41 APTT 32 SECONDS (21-34) 11/17/16 08:41 Attending/Attestation - Attestation I have personally seen and examined this patient.: Yes I have fully participated in the care of the patient.: Yes I have reviewed all pertinent clinical information, including history, physical exam and plan: Yes Notes (Text): 11/25/16 19:48 one chest tube remaining d/c soon to snf
[2016-11-25] MEDS: GlipiZIDE 2.5 mg Tab PO SCH (09:50)
[2016-11-25] MEDS: Saccharomyces Boulardi 250 mg Cap PO SCH ×2 (09:51→17:36)
--- NOTE | 2016-11-25 09:52 | RAD ---
HISTORY: Right chest tube, right pigtail COMPARISON: 11/24/2016 7:45 a.m. FINDINGS: LUNGS: No pulmonary infiltrate. PLEURA: Right pleural effusion, grossly unchanged. Pigtail pleural drainage catheter noted medial right lung base, unchanged. Right apical chest tube, unchanged. No pneumothorax. CARDIOVASCULAR: Normal. OSSEOUS STRUCTURES: No significant abnormalities. VISUALIZED UPPER ABDOMEN: Normal. OTHER FINDINGS: None. IMPRESSION: No significant change from prior examination.
--- NOTE | 2016-11-25 10:04 | CP.PCM.PN ---
Subjective - Date & Time of Evaluation Date of Evaluation: 11/25/16 Time of Evaluation: 07:00 - Subjective Subjective: THORACIC SURGERY PROGRESS NOTE FOR DR. AYERS Patient seen and examined at bedside. He denies SOB. He is complaining of dry cough. He just received pain medications so states he does not have pain at this time. Changed dressing and removed packing. Repacked with iodaform. IR Pigtail remains in place on suction. Objective - Vital Signs/Intake and Output Vital Signs (last 24 hours): Temp Pulse Resp BP Pulse Ox 97.8 F 95 H 20 129/86 95 11/25/16 08:50 11/25/16 08:50 11/25/16 08:50 11/25/16 08:50 11/25/16 08:50 Intake and Output: 11/25/16 11/25/16 06:59 18:59 Intake Total 1340 Output Total 1340 Balance 0 - Medications Medications: Current Medications Albuterol/Ipratropium (Duoneb 3 Mg/0.5 Mg (3 Ml) Ud) 3 ml INH RQ6 [facility] Last Admin: 11/25/16 07:25 Dose: 3 ml Famotidine (Pepcid) 20 mg PO DAILY [facility] Last Admin: 11/25/16 09:52 Dose: 20 mg Folic Acid (Folic Acid) 1 mg PO DAILY [facility] Last Admin: 11/25/16 09:53 Dose: 1 mg Glipizide (Glucotrol) 2.5 mg PO DAILY [facility] Last Admin: 11/25/16 09:50 Dose: 2.5 mg Guaifenesin/Dextromethorphan (Robitussin Dm) 10 ml PO Q4H PRN PRN Reason: Cough and congestion Metronidazole (Flagyl) 500 mg in 100 mls @ 100 mls/hr IVPB Q8 [facility] Last Admin: 11/25/16 05:05 Dose: 100 mls/hr Imipenem/Cilastatin Sodium 1, (000 mg/ Sodium Chloride) 250 mls @ 250 mls/hr IVPB Q8H [facility] Last Admin: 11/25/16 09:00 Dose: 250 mls/hr Insulin Aspart (Novolog) 0 unit SC ACHS [facility] PRN Reason: Protocol Last Admin: 11/25/16 07:30 Dose: Not Given Insulin Detemir (Levemir) 40 unit SC Q12 [facility] Last Admin: 11/24/16 22:17 Dose: 40 unit Lisinopril (Zestril) 20 mg PO DAILY [facility] Last Admin: 11/25/16 09:51 Dose: 20 mg Metoprolol Tartrate (Lopressor) 50 mg PO Q12H [facility] Last Admin: 11/25/16 09:51 Dose: 50 mg Morphine Sulfate (Morphine) 2 mg IVP Q4 PRN PRN Reason: Pain, severe (8-10) Last Admin: 11/25/16 08:02 Dose: 2 mg Ondansetron HCl (Zofran Inj) 4 mg IVP Q4 PRN PRN Reason: Nausea/Vomiting Last Admin: 11/21/16 10:19 Dose: 4 mg Saccharomyces Boulardii (Florastor) 500 mg PO BID [facility] Last Admin: 11/25/16 09:51 Dose: 500 mg Vancomycin HCl (Vancocin (Oral Or Rectal Use)) 125 mg PO Q6 [facility] Last Admin: 11/25/16 05:06 Dose: 125 mg - Labs Labs: 11/23/16 08:03 11/23/16 08:03 PT 15.8 SECONDS (9.7-12.2) H 11/17/16 08:41 INR 1.4 11/17/16 08:41 APTT 32 SECONDS (21-34) 11/17/16 08:41 - Constitutional Appears: Non-toxic, No Acute Distress - Eye Exam Eye Exam: EOMI, Normal appearance - Respiratory Exam Respiratory Exam: NORMAL BREATHING PATTERN. absent: Respiratory Distress Additional comments: Incision site with iodaform packing in place IR drain in place on suction with 40cc drainage over past 24 hours - Cardiovascular Exam Cardiovascular Exam: +S1, +S2 - Neurological Exam Neurological Exam: Alert, Awake, Oriented x3 - Psychiatric Exam Psychiatric exam: Normal Affect, Normal Mood - Skin Skin Exam: Normal Color, Warm Assessment and Plan - Assessment and Plan (Free Text) Assessment: 40M w. R parapneumonic effusion/empyema, s/p VATS converted to thoracotomy, w/ decortication and wedge resection POD#22 s/p IR CT guided pigtail placement on - Afebrile, VSS - C diff negative on repeat testing - Daily CXR - Both chest tubes removed - IR pigtail catheter in place with 40cc drainage over past 24 hours - Will remove pigtail when drainage is less than 20cc per 24 hours - Iodaform packing changes BID - Dressing changes PRN - Discussed plan with Dr. Hernando Avalos PGY-2
[2016-11-25] MEDS: Insulin Detemir 100 units/ml Vial (Levemir) SC SCH ×2 (12:36→21:32)
[2016-11-25] MEDS: guaiFENesin DM 200 mg-20 mg/10 ml UD PO PRN (12:42)
--- NOTE | 2016-11-25 13:37 | CP.PCM.PN ---
Subjective - Date & Time of Evaluation Date of Evaluation: 11/25/16 Time of Evaluation: 13:35 - Subjective Subjective: Pt s/e. Wound improving and clean. Pigtail output-40cc serosanguinous. cxr- satisfactory. a/p: will d/c pigtail when output <20cc/24. Objective - Vital Signs/Intake and Output Vital Signs (last 24 hours): Temp Pulse Resp BP Pulse Ox 97.8 F 95 H 20 129/86 95 11/25/16 08:50 11/25/16 08:50 11/25/16 08:50 11/25/16 08:50 11/25/16 08:50 Intake and Output: 11/25/16 11/25/16 06:59 18:59 Intake Total 1340 Output Total 1340 Balance 0 - Medications Medications: Current Medications Albuterol/Ipratropium (Duoneb 3 Mg/0.5 Mg (3 Ml) Ud) 3 ml INH RQ6 [facility] Last Admin: 11/25/16 13:30 Dose: Not Given Famotidine (Pepcid) 20 mg PO DAILY [facility] Last Admin: 11/25/16 09:52 Dose: 20 mg Folic Acid (Folic Acid) 1 mg PO DAILY [facility] Last Admin: 11/25/16 09:53 Dose: 1 mg Glipizide (Glucotrol) 2.5 mg PO DAILY [facility] Last Admin: 11/25/16 09:50 Dose: 2.5 mg Guaifenesin/Dextromethorphan (Robitussin Dm) 10 ml PO Q4H PRN PRN Reason: Cough and congestion Last Admin: 11/25/16 12:42 Dose: 10 ml Metronidazole (Flagyl) 500 mg in 100 mls @ 100 mls/hr IVPB Q8 [facility] Last Admin: 11/25/16 05:05 Dose: 100 mls/hr Imipenem/Cilastatin Sodium 1, (000 mg/ Sodium Chloride) 250 mls @ 250 mls/hr IVPB Q8H [facility] Last Admin: 11/25/16 09:00 Dose: 250 mls/hr Insulin Aspart (Novolog) 0 unit SC ACHS [facility] PRN Reason: Protocol Last Admin: 11/25/16 12:45 Dose: 6 unit Insulin Detemir (Levemir) 40 unit SC Q12 [facility] Last Admin: 11/25/16 12:36 Dose: 40 unit Lisinopril (Zestril) 20 mg PO DAILY [facility] Last Admin: 11/25/16 09:51 Dose: 20 mg Metoprolol Tartrate (Lopressor) 50 mg PO Q12H [facility] Last Admin: 11/25/16 09:51 Dose: 50 mg Morphine Sulfate (Morphine) 2 mg IVP Q4 PRN PRN Reason: Pain, severe (8-10) Last Admin: 11/25/16 12:35 Dose: 2 mg Ondansetron HCl (Zofran Inj) 4 mg IVP Q4 PRN PRN Reason: Nausea/Vomiting Last Admin: 11/21/16 10:19 Dose: 4 mg Saccharomyces Boulardii (Florastor) 500 mg PO BID [facility] Last Admin: 11/25/16 09:51 Dose: 500 mg Vancomycin HCl (Vancocin (Oral Or Rectal Use)) 125 mg PO Q6 [facility] Last Admin: 11/25/16 12:39 Dose: 125 mg - Labs Labs: 11/23/16 08:03 11/23/16 08:03 PT 15.8 SECONDS (9.7-12.2) H 11/17/16 08:41 INR 1.4 11/17/16 08:41 APTT 32 SECONDS (21-34) 11/17/16 08:41
--- NOTE | 2016-11-25 19:52 | CP.PCM.PN ---
Subjective - Date & Time of Evaluation Date of Evaluation: 11/25/16 Time of Evaluation: 19:48 - Subjective Subjective: INFECTIOUS DISEASE PROGRESS NOTE MARIA DIAZ MD, FACP 6T 654 11/25/2016 CHART REVIEWED PT EXAMINED CASE DISCUSSED CLINICALLY RESPONDING, LENGTH OF TREATMENT DEPENDS ON HIS CONTINUED RESPONSE AND HOPEFULLY NO EXACERBATION. PT NEEDS DAILY CLEANING CONSIDER INVANZ AND FLAGYL OUTPTS. THORACIC NOTES REVIEWED Objective - Vital Signs/Intake and Output Vital Signs (last 24 hours): Temp Pulse Resp BP Pulse Ox 98.3 F 89 0 L 127/84 97 11/25/16 15:52 11/25/16 15:52 11/25/16 15:52 11/25/16 15:52 11/25/16 15:52 - Medications Medications: Current Medications Albuterol/Ipratropium (Duoneb 3 Mg/0.5 Mg (3 Ml) Ud) 3 ml INH RQ6 [facility] Last Admin: 11/25/16 19:21 Dose: 3 ml Famotidine (Pepcid) 20 mg PO DAILY [facility] Last Admin: 11/25/16 09:52 Dose: 20 mg Folic Acid (Folic Acid) 1 mg PO DAILY [facility] Last Admin: 11/25/16 09:53 Dose: 1 mg Glipizide (Glucotrol) 2.5 mg PO DAILY [facility] Last Admin: 11/25/16 09:50 Dose: 2.5 mg Guaifenesin/Dextromethorphan (Robitussin Dm) 10 ml PO Q4H PRN PRN Reason: Cough and congestion Last Admin: 11/25/16 12:42 Dose: 10 ml Metronidazole (Flagyl) 500 mg in 100 mls @ 100 mls/hr IVPB Q8 [facility] Last Admin: 11/25/16 05:05 Dose: 100 mls/hr Imipenem/Cilastatin Sodium 1, (000 mg/ Sodium Chloride) 250 mls @ 250 mls/hr IVPB Q8H [facility] Last Admin: 11/25/16 17:34 Dose: 250 mls/hr Insulin Aspart (Novolog) 0 unit SC ACHS [facility] PRN Reason: Protocol Last Admin: 11/25/16 17:35 Dose: 4 unit Insulin Detemir (Levemir) 40 unit SC Q12 [facility] Last Admin: 11/25/16 12:36 Dose: 40 unit Lisinopril (Zestril) 20 mg PO DAILY [facility] Last Admin: 11/25/16 09:51 Dose: 20 mg Metoprolol Tartrate (Lopressor) 50 mg PO Q12H [facility] Last Admin: 11/25/16 09:51 Dose: 50 mg Morphine Sulfate (Morphine) 2 mg IVP Q4 PRN PRN Reason: Pain, severe (8-10) Last Admin: 11/25/16 17:42 Dose: 2 mg Ondansetron HCl (Zofran Inj) 4 mg IVP Q4 PRN PRN Reason: Nausea/Vomiting Last Admin: 11/21/16 10:19 Dose: 4 mg Saccharomyces Boulardii (Florastor) 500 mg PO BID [facility] Last Admin: 11/25/16 17:36 Dose: 500 mg Vancomycin HCl (Vancocin (Oral Or Rectal Use)) 125 mg PO Q6 [facility] Last Admin: 11/25/16 17:42 Dose: 125 mg - Labs Labs: 11/23/16 08:03 11/23/16 08:03 PT 15.8 SECONDS (9.7-12.2) H 11/17/16 08:41 INR 1.4 11/17/16 08:41 APTT 32 SECONDS (21-34) 11/17/16 08:41 - Constitutional Appears: Non-toxic, No Acute Distress, Chronically Ill - Head Exam Head Exam: ATRAUMATIC - Eye Exam Eye Exam: Normal appearance - ENT Exam ENT Exam: Mucous Membranes Moist - Neck Exam Neck Exam: Normal Inspection - Respiratory Exam Respiratory Exam: Decreased Breath Sounds, NORMAL BREATHING PATTERN - Cardiovascular Exam Cardiovascular Exam: REGULAR RHYTHM - GI/Abdominal Exam GI & Abdominal Exam: Soft, Normal Bowel Sounds. absent: Tenderness - Rectal Exam Rectal Exam: Deferred - Neurological Exam Neurological Exam: Alert, Awake - Psychiatric Exam Psychiatric exam: Normal Affect, Normal Mood - Skin Skin Exam: Warm Assessment and Plan (1) Empyema Status: Acute (2) Pneumonia Status: Suspected (3) Pleural effusion on right Status: Acute (4) Bilateral lower extremity edema Status: Resolved (5) Anemia Status: Chronic (6) Hyperglycemia Status: Acute (7) HTN (hypertension) Status: Chronic (8) Diarrhea Status: Resolved (9) Diabetes 1.5, managed as type 2 Status: Chronic
[2016-11-26] MEDS: Vancomycin 125 MG/5 ML SOLN (ORAL/RECTAL) PO SCH ×4 (01:10→17:24)
[2016-11-26] MEDS: Albuterol-Ipratrop 3 mg / 0.5 (3 ml) UD INH SCH ×4 (01:47→20:09)
[2016-11-26] MEDS: metroNIDAZOLE IV 500 mg/100 ml 500 MG/100 ML BAG IVPB SCH ×3 (05:21→20:59)
[2016-11-26 07:21] LABS: BASO % 0.5 % (0.0-2.0); EOS # 0.1 K/uL (0.0-0.7); EOS % 2.7 % (0.0-4.0); HEMATOCRIT 28.7 % (35.0-51.0); LYMPH # 1.9 K/uL (1.0-4.3); LYMPH % 39.9 % (20.0-40.0); MEAN CELL VOLUME 82.6 fL (80.0-94.0); MEAN CORPUSCULAR HEMOGLOBIN 26.8 pg (27.0-31.0); MEAN CORPUSCULAR HGB CONC 32.5 g/dL (33.0-37.0); MEAN PLATELET VOLUME 9.1 fL (7.2-11.7); MONO # 0.6 K/uL (0.0-0.8); MONO % 12.5 % (0.0-10.0); NRBC % 0.2 % (0.0-2.0); RED CELL DISTRIBUTION WIDTH 16.9 % (11.5-14.5); WHITE BLOOD COUNT 4.7 K/uL (4.8-10.8)
[2016-11-26] MEDS: (Novolog) Insulin Aspart, Recombinant 100 u/ml 10 ml vial SC SCH ×4 (07:30→21:39)
[2016-11-26 07:58] LABS: CHLORIDE 97 mmol/L (98-107); POTASSIUM 4.1 mmol/L (3.6-5.2); SODIUM 135 mmol/L (132-148)
--- NOTE | 2016-11-26 07:59 | CP.PCM.PN ---
Subjective - Date & Time of Evaluation Date of Evaluation: 11/26/16 Time of Evaluation: 07:50 - Subjective Subjective: no tachycardia tolerating po Objective - Vital Signs/Intake and Output Vital Signs (last 24 hours): Temp Pulse Resp BP Pulse Ox 97.6 F 88 20 143/87 98 11/25/16 23:25 11/25/16 23:25 11/25/16 23:25 11/25/16 23:25 11/25/16 23:25 Intake and Output: 11/26/16 11/26/16 06:59 18:59 Intake Total 1530 Output Total 1630 Balance -100 - Medications Medications: Current Medications Albuterol/Ipratropium (Duoneb 3 Mg/0.5 Mg (3 Ml) Ud) 3 ml INH RQ6 [facility] Last Admin: 11/26/16 01:47 Dose: 3 ml Famotidine (Pepcid) 20 mg PO DAILY [facility] Last Admin: 11/25/16 09:52 Dose: 20 mg Folic Acid (Folic Acid) 1 mg PO DAILY [facility] Last Admin: 11/25/16 09:53 Dose: 1 mg Glipizide (Glucotrol) 2.5 mg PO DAILY [facility] Last Admin: 11/25/16 09:50 Dose: 2.5 mg Guaifenesin/Dextromethorphan (Robitussin Dm) 10 ml PO Q4H PRN PRN Reason: Cough and congestion Last Admin: 11/25/16 12:42 Dose: 10 ml Metronidazole (Flagyl) 500 mg in 100 mls @ 100 mls/hr IVPB Q8 [facility] Last Admin: 11/26/16 05:21 Dose: 100 mls/hr Imipenem/Cilastatin Sodium 1, (000 mg/ Sodium Chloride) 250 mls @ 250 mls/hr IVPB Q8H [facility] Last Admin: 11/26/16 01:02 Dose: 250 mls/hr Insulin Aspart (Novolog) 0 unit SC ACHS [facility] PRN Reason: Protocol Last Admin: 11/25/16 21:25 Dose: Not Given Insulin Detemir (Levemir) 40 unit SC Q12 [facility] Last Admin: 11/25/16 21:32 Dose: 40 unit Lisinopril (Zestril) 20 mg PO DAILY [facility] Last Admin: 11/25/16 09:51 Dose: 20 mg Metoprolol Tartrate (Lopressor) 50 mg PO Q12H [facility] Last Admin: 11/25/16 21:33 Dose: 50 mg Morphine Sulfate (Morphine) 2 mg IVP Q4 PRN PRN Reason: Pain, severe (8-10) Last Admin: 11/26/16 03:26 Dose: 2 mg Ondansetron HCl (Zofran Inj) 4 mg IVP Q4 PRN PRN Reason: Nausea/Vomiting Last Admin: 11/21/16 10:19 Dose: 4 mg Oxycodone/Acetaminophen (Percocet 5/325 Mg Tab) 2 tab PO Q4H PRN PRN Reason: Pain, moderate (4-7) Stop: 11/28/16 22:06 Saccharomyces Boulardii (Florastor) 500 mg PO BID [facility] Last Admin: 11/25/16 17:36 Dose: 500 mg Vancomycin HCl (Vancocin (Oral Or Rectal Use)) 125 mg PO Q6 [facility] Last Admin: 11/26/16 05:21 Dose: 125 mg - Labs Labs: 11/26/16 07:10 11/23/16 08:03 PT 15.8 SECONDS (9.7-12.2) H 11/17/16 08:41 INR 1.4 11/17/16 08:41 APTT 32 SECONDS (21-34) 11/17/16 08:41 - Constitutional Appears: Well - Head Exam Head Exam: ATRAUMATIC - Eye Exam Eye Exam: Normal appearance - ENT Exam ENT Exam: Mucous Membranes Moist - Respiratory Exam Respiratory Exam: Clear to Ausculation Bilateral, Wheezes - Cardiovascular Exam Cardiovascular Exam: REGULAR RHYTHM - GI/Abdominal Exam GI & Abdominal Exam: Soft, Normal Bowel Sounds - Exam External exam: absent: Erythema - Extremities Exam Extremities Exam: Normal Inspection - Neurological Exam Neurological Exam: Alert - Psychiatric Exam Psychiatric exam: Normal Affect - Skin Skin Exam: Warm Assessment and Plan (1) Tachycardia Assessment & Plan: continue chest tube as per surgery tachycardia stable Status: Resolved
[2016-11-26 08:00] LABS: GFR AFRICAN-AMERICAN > 60
[2016-11-26 08:01] LABS: ALB/GLOB RATIO 0.7 (1.0-2.1); ALKALINE PHOSPHATASE 62 U/L (38-126); AST/SGOT 21 U/L (17-59); BILIRUBIN,TOTAL 0.7 mg/dL (0.2-1.3); BLOOD UREA NITROGEN 13 mg/dL (9-20); CARBON DIOXIDE 29 mmol/L (22-30); GLUCOSE,RANDOM 97 mg/dL (75-110); TOTAL PROTEIN 7.4 g/dL (6.3-8.3)
[2016-11-26 08:02] LABS: ALT/SGPT < 6 U/L (21-72); CALCIUM 8.5 mg/dl (8.6-10.4)
--- NOTE | 2016-11-26 09:22 | CP.PCM.PN ---
Subjective - Date & Time of Evaluation Date of Evaluation: 11/25/16 Time of Evaluation: 19:35 - Subjective Subjective: Patient is complaining of increasing pain in the lower back on the backside right chest. Is feeling otherwise okay. The drainage of the chest still present. No nausea, vomiting, regular bowel habits, stools, workup is negative for C. difficile colitis so far. Objective - Vital Signs/Intake and Output Vital Signs (last 24 hours): Temp Pulse Resp BP Pulse Ox 98.0 F 77 20 150/90 99 11/26/16 07:15 11/26/16 07:15 11/26/16 07:15 11/26/16 07:15 11/26/16 07:15 On examination: HEENT PERRLA, neck supple No thyromegaly was noted and no cervical adenopathy noted Chest bilateral good air entry, no wheezing or rales noted CVS regular heart sound, no murmur Abdomen soft and no organomegaly Extremities no pedal edema, no leg swelling, pedal pulses are good. 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 no functional neurological deficit Intake and Output: 11/26/16 11/26/16 06:59 18:59 Intake Total 1530 Output Total 1630 Balance -100 - Medications Medications: Current Medications Albuterol/Ipratropium (Duoneb 3 Mg/0.5 Mg (3 Ml) Ud) 3 ml INH RQ6 [facility] Last Admin: 11/26/16 01:47 Dose: 3 ml Famotidine (Pepcid) 20 mg PO DAILY [facility] Last Admin: 11/25/16 09:52 Dose: 20 mg Folic Acid (Folic Acid) 1 mg PO DAILY [facility] Last Admin: 11/25/16 09:53 Dose: 1 mg Glipizide (Glucotrol) 2.5 mg PO DAILY [facility] Last Admin: 11/25/16 09:50 Dose: 2.5 mg Guaifenesin/Dextromethorphan (Robitussin Dm) 10 ml PO Q4H PRN PRN Reason: Cough and congestion Last Admin: 11/25/16 12:42 Dose: 10 ml Metronidazole (Flagyl) 500 mg in 100 mls @ 100 mls/hr IVPB Q8 [facility] Last Admin: 11/26/16 05:21 Dose: 100 mls/hr Imipenem/Cilastatin Sodium 1, (000 mg/ Sodium Chloride) 250 mls @ 250 mls/hr IVPB Q8H [facility] Last Admin: 11/26/16 01:02 Dose: 250 mls/hr Insulin Aspart (Novolog) 0 unit SC ACHS [facility] PRN Reason: Protocol Last Admin: 11/25/16 21:25 Dose: Not Given Insulin Detemir (Levemir) 40 unit SC Q12 [facility] Last Admin: 11/25/16 21:32 Dose: 40 unit Lisinopril (Zestril) 20 mg PO DAILY [facility] Last Admin: 11/25/16 09:51 Dose: 20 mg Metoprolol Tartrate (Lopressor) 50 mg PO Q12H [facility] Last Admin: 11/25/16 21:33 Dose: 50 mg Morphine Sulfate (Morphine) 2 mg IVP Q4 PRN PRN Reason: Pain, severe (8-10) Last Admin: 11/26/16 03:26 Dose: 2 mg Ondansetron HCl (Zofran Inj) 4 mg IVP Q4 PRN PRN Reason: Nausea/Vomiting Last Admin: 11/21/16 10:19 Dose: 4 mg Oxycodone/Acetaminophen (Percocet 5/325 Mg Tab) 2 tab PO Q4H PRN PRN Reason: Pain, moderate (4-7) Stop: 11/28/16 22:06 Saccharomyces Boulardii (Florastor) 500 mg PO BID [facility] Last Admin: 11/25/16 17:36 Dose: 500 mg Vancomycin HCl (Vancocin (Oral Or Rectal Use)) 125 mg PO Q6 [facility] Last Admin: 11/26/16 05:21 Dose: 125 mg - Labs Labs: 11/26/16 07:10 11/26/16 07:10 PT 15.8 SECONDS (9.7-12.2) H 11/17/16 08:41 INR 1.4 11/17/16 08:41 APTT 32 SECONDS (21-34) 11/17/16 08:41 Assessment and Plan (1) Dyspnea Status: Acute (2) Pleural effusion on right Assessment & Plan: Patient with pneumonia, complicated with parapneumonic effusion, empyema, chest is post chest tube, video-assisted thoracoscopy. Currently having pigtail catheter. Still draining small amount of fluid. I spoke to the ID as well as cardiothoracic surgery. Will continue to keep the drainage tube until Monday. Will plan about the discharge after that Status: Acute (3) Pneumonia Status: Acute (4) Respiratory distress Status: Acute
--- NOTE | 2016-11-26 09:40 | CP.PCM.PN ---
Subjective - Date & Time of Evaluation Date of Evaluation: 11/26/16 Time of Evaluation: 09:37 - Subjective Subjective: Patient is morning feeling slightly better. The pain in the back is still present, last night, not able to sleep because of the pain. Cough is negative. But taking deep breath causes pain. No nausea. No vomiting. On the abdomen. No pain. Bowel habits are normal. Right leg swelling is improving Objective - Vital Signs/Intake and Output Vital Signs (last 24 hours): Temp Pulse Resp BP Pulse Ox 98.0 F 77 20 150/90 99 11/26/16 07:15 11/26/16 07:15 11/26/16 07:15 11/26/16 07:15 11/26/16 07:15 On examination: HEENT PERRLA, neck supple No thyromegaly was noted and no cervical adenopathy noted Chest bilateral good air entry, no wheezing or rales noted CVS regular heart sound, no murmur Abdomen soft and no organomegaly Extremities no pedal edema, no leg swelling, pedal pulses are good. 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 no functional neurological deficit Patient has a chest tube, pigtail catheter on the lower back Intake and Output: 11/26/16 11/26/16 06:59 18:59 Intake Total 1530 Output Total 1630 Balance -100 - Medications Medications: Current Medications Albuterol/Ipratropium (Duoneb 3 Mg/0.5 Mg (3 Ml) Ud) 3 ml INH RQ6 [facility] Last Admin: 11/26/16 01:47 Dose: 3 ml Famotidine (Pepcid) 20 mg PO DAILY [facility] Last Admin: 11/25/16 09:52 Dose: 20 mg Folic Acid (Folic Acid) 1 mg PO DAILY [facility] Last Admin: 11/25/16 09:53 Dose: 1 mg Glipizide (Glucotrol) 2.5 mg PO DAILY [facility] Last Admin: 11/25/16 09:50 Dose: 2.5 mg Guaifenesin/Dextromethorphan (Robitussin Dm) 10 ml PO Q4H PRN PRN Reason: Cough and congestion Last Admin: 11/25/16 12:42 Dose: 10 ml Metronidazole (Flagyl) 500 mg in 100 mls @ 100 mls/hr IVPB Q8 [facility] Last Admin: 11/26/16 05:21 Dose: 100 mls/hr Imipenem/Cilastatin Sodium 1, (000 mg/ Sodium Chloride) 250 mls @ 250 mls/hr IVPB Q8H [facility] Last Admin: 11/26/16 01:02 Dose: 250 mls/hr Insulin Aspart (Novolog) 0 unit SC ACHS [facility] PRN Reason: Protocol Last Admin: 11/25/16 21:25 Dose: Not Given Insulin Detemir (Levemir) 40 unit SC Q12 [facility] Last Admin: 11/25/16 21:32 Dose: 40 unit Lisinopril (Zestril) 20 mg PO DAILY [facility] Last Admin: 11/25/16 09:51 Dose: 20 mg Metoprolol Tartrate (Lopressor) 50 mg PO Q12H [facility] Last Admin: 11/25/16 21:33 Dose: 50 mg Morphine Sulfate (Morphine) 2 mg IVP Q4 PRN PRN Reason: Pain, severe (8-10) Last Admin: 11/26/16 03:26 Dose: 2 mg Ondansetron HCl (Zofran Inj) 4 mg IVP Q4 PRN PRN Reason: Nausea/Vomiting Last Admin: 11/21/16 10:19 Dose: 4 mg Oxycodone/Acetaminophen (Percocet 5/325 Mg Tab) 2 tab PO Q4H PRN PRN Reason: Pain, moderate (4-7) Stop: 11/28/16 22:06 Saccharomyces Boulardii (Florastor) 500 mg PO BID [facility] Last Admin: 11/25/16 17:36 Dose: 500 mg Vancomycin HCl (Vancocin (Oral Or Rectal Use)) 125 mg PO Q6 [facility] Last Admin: 11/26/16 05:21 Dose: 125 mg - Labs Labs: 11/26/16 07:10 11/26/16 07:10 PT 15.8 SECONDS (9.7-12.2) H 11/17/16 08:41 INR 1.4 11/17/16 08:41 APTT 32 SECONDS (21-34) 11/17/16 08:41 Assessment and Plan (1) Dyspnea Status: Acute (2) Pleural effusion on right Assessment & Plan: Parapneumonic effusion. Status post a thoracoscopy and the vats. Pigtail catheter. X-ray improving. Currently on antibiotic, patient will need a total of at least a 68 weeks. Currently patient is on 50 become antibiotic. On Monday. Will repeat the chest x-ray. Possibly will do more the pigtail. After that we will plan for discharge Status: Acute (3) Pneumonia Status: Acute (4) Respiratory distress Status: Acute
--- NOTE | 2016-11-26 09:43 | RAD ---
HISTORY: Right chest tube, right pigtail COMPARISON: 11/25/2016 FINDINGS: LUNGS: Lines tubes in stable position. Persistent moderate loculated right pleural effusion with adjacent consolidative changes. PLEURA: As above. CARDIOVASCULAR: Normal. OSSEOUS STRUCTURES: No significant abnormalities. VISUALIZED UPPER ABDOMEN: Normal. OTHER FINDINGS: None. IMPRESSION: Lines tubes in stable position. Persistent moderate loculated right pleural effusion with adjacent consolidative changes.
[2016-11-26] MEDS: Saccharomyces Boulardi 250 mg Cap PO SCH ×2 (09:58→17:24)
[2016-11-26] MEDS: GlipiZIDE 2.5 mg Tab PO SCH (09:59)
[2016-11-26] MEDS: guaiFENesin DM 200 mg-20 mg/10 ml UD PO PRN (10:00)
[2016-11-26] MEDS: Insulin Detemir 100 units/ml Vial (Levemir) SC SCH ×2 (10:00→22:06)
--- NOTE | 2016-11-26 11:17 | CP.PCM.PN ---
Subjective - Date & Time of Evaluation Date of Evaluation: 11/26/16 Time of Evaluation: 08:10 - Subjective Subjective: SURGERY NOTE FOR DR. AYERS 40M seen and examined at bedside. Patient denies pain, shortness of breath. Tired from overnight. Objective - Vital Signs/Intake and Output Vital Signs (last 24 hours): Temp Pulse Resp BP Pulse Ox 98.0 F 77 20 150/90 99 11/26/16 07:15 11/26/16 07:15 11/26/16 07:15 11/26/16 07:15 11/26/16 07:15 Intake and Output: 11/26/16 11/26/16 06:59 18:59 Intake Total 1530 Output Total 1630 Balance -100 - Medications Medications: Current Medications Albuterol/Ipratropium (Duoneb 3 Mg/0.5 Mg (3 Ml) Ud) 3 ml INH RQ6 [facility] Last Admin: 11/26/16 08:05 Dose: 3 ml Famotidine (Pepcid) 20 mg PO DAILY [facility] Last Admin: 11/26/16 09:59 Dose: 20 mg Folic Acid (Folic Acid) 1 mg PO DAILY [facility] Last Admin: 11/26/16 09:59 Dose: 1 mg Glipizide (Glucotrol) 2.5 mg PO DAILY [facility] Last Admin: 11/26/16 09:59 Dose: 2.5 mg Guaifenesin/Dextromethorphan (Robitussin Dm) 10 ml PO Q4H PRN PRN Reason: Cough and congestion Last Admin: 11/26/16 10:00 Dose: 10 ml Metronidazole (Flagyl) 500 mg in 100 mls @ 100 mls/hr IVPB Q8 [facility] Last Admin: 11/26/16 05:21 Dose: 100 mls/hr Imipenem/Cilastatin Sodium 1, (000 mg/ Sodium Chloride) 250 mls @ 250 mls/hr IVPB Q8H [facility] Last Admin: 11/26/16 09:00 Dose: 250 mls/hr Insulin Aspart (Novolog) 0 unit SC ACHS [facility] PRN Reason: Protocol Last Admin: 11/26/16 07:30 Dose: Not Given Insulin Detemir (Levemir) 40 unit SC Q12 [facility] Last Admin: 11/26/16 10:00 Dose: 40 unit Lisinopril (Zestril) 20 mg PO DAILY [facility] Last Admin: 11/26/16 09:58 Dose: 20 mg Metoprolol Tartrate (Lopressor) 50 mg PO Q12H [facility] Last Admin: 11/26/16 10:00 Dose: 50 mg Morphine Sulfate (Morphine) 2 mg IVP Q4 PRN PRN Reason: Pain, severe (8-10) Last Admin: 11/26/16 10:06 Dose: 2 mg Ondansetron HCl (Zofran Inj) 4 mg IVP Q4 PRN PRN Reason: Nausea/Vomiting Last Admin: 11/21/16 10:19 Dose: 4 mg Oxycodone/Acetaminophen (Percocet 5/325 Mg Tab) 2 tab PO Q4H PRN PRN Reason: Pain, moderate (4-7) Stop: 11/28/16 22:06 Saccharomyces Boulardii (Florastor) 500 mg PO BID [facility] Last Admin: 11/26/16 09:58 Dose: 500 mg Vancomycin HCl (Vancocin (Oral Or Rectal Use)) 125 mg PO Q6 [facility] Last Admin: 11/26/16 05:21 Dose: 125 mg - Labs Labs: 11/26/16 07:10 11/26/16 07:10 PT 15.8 SECONDS (9.7-12.2) H 11/17/16 08:41 INR 1.4 11/17/16 08:41 APTT 32 SECONDS (21-34) 11/17/16 08:41 - Constitutional Appears: Non-toxic, No Acute Distress - Respiratory Exam Respiratory Exam: Clear to Ausculation Bilateral, NORMAL BREATHING PATTERN Additional comments: dressing clean dry intact. no air leak, 20cc/24hrs in chest tube - Cardiovascular Exam Cardiovascular Exam: +S1, +S2 - GI/Abdominal Exam GI & Abdominal Exam: Soft. absent: Distended, Firm, Guarding, Rigid, Tenderness - Neurological Exam Neurological Exam: Alert, Awake Assessment and Plan - Assessment and Plan (Free Text) Assessment: 40M w. R parapneumonic effusion/empyema, s/p VATS converted to thoracotomy, w/ decortication and wedge resection POD#23 s/p IR CT guided pigtail placement on - monitor output - remove pigtail when output less than 20cc/24hrs, possibly monday - dressing changes - incentive spirometer Discussed with Dr. Hernando Ponce, PGY1
[2016-11-26] MEDS: Oxycodone/Acetaminophen 5/325 mg Tab PO PRN (19:45)
[2016-11-27] MEDS: Vancomycin 125 MG/5 ML SOLN (ORAL/RECTAL) PO SCH ×4 (00:10→17:09)
--- NOTE | 2016-11-27 00:16 | CP.PCM.PN ---
Subjective - Date & Time of Evaluation Date of Evaluation: 11/27/16 Time of Evaluation: 00:15 - Subjective Subjective: SURGERY PROGRESS NOTE FOR DR. AYERS 40M seen and examined bedside. Denies pain, SOB. Clinical symptoms resolved. drain currently 20cc output in past 12 hrs. Objective - Vital Signs/Intake and Output Vital Signs (last 24 hours): Temp Pulse Resp BP Pulse Ox 98.2 F 84 20 143/87 97 11/26/16 15:38 11/26/16 15:38 11/26/16 15:38 11/26/16 15:38 11/26/16 15:38 Intake and Output: 11/26/16 11/27/16 18:59 06:59 Output Total 10 Balance -10 - Medications Medications: Current Medications Albuterol/Ipratropium (Duoneb 3 Mg/0.5 Mg (3 Ml) Ud) 3 ml INH RQ6 [facility] Last Admin: 11/26/16 20:09 Dose: 3 ml Famotidine (Pepcid) 20 mg PO DAILY [facility] Last Admin: 11/26/16 09:59 Dose: 20 mg Folic Acid (Folic Acid) 1 mg PO DAILY [facility] Last Admin: 11/26/16 09:59 Dose: 1 mg Glipizide (Glucotrol) 2.5 mg PO DAILY [facility] Last Admin: 11/26/16 09:59 Dose: 2.5 mg Guaifenesin/Dextromethorphan (Robitussin Dm) 10 ml PO Q4H PRN PRN Reason: Cough and congestion Last Admin: 11/26/16 10:00 Dose: 10 ml Metronidazole (Flagyl) 500 mg in 100 mls @ 100 mls/hr IVPB Q8 [facility] Last Admin: 11/26/16 20:59 Dose: 100 mls/hr Imipenem/Cilastatin Sodium 1, (000 mg/ Sodium Chloride) 250 mls @ 250 mls/hr IVPB Q8H [facility] Last Admin: 11/27/16 00:10 Dose: 250 mls/hr Insulin Aspart (Novolog) 0 unit SC ACHS [facility] PRN Reason: Protocol Last Admin: 11/26/16 21:39 Dose: Not Given Insulin Detemir (Levemir) 40 unit SC Q12 [facility] Last Admin: 11/26/16 22:06 Dose: 40 unit Lisinopril (Zestril) 20 mg PO DAILY [facility] Last Admin: 11/26/16 09:58 Dose: 20 mg Metoprolol Tartrate (Lopressor) 50 mg PO Q12H [facility] Last Admin: 11/26/16 19:46 Dose: 50 mg Morphine Sulfate (Morphine) 2 mg IVP Q4 PRN PRN Reason: Pain, severe (8-10) Last Admin: 11/26/16 22:06 Dose: 2 mg Ondansetron HCl (Zofran Inj) 4 mg IVP Q4 PRN PRN Reason: Nausea/Vomiting Last Admin: 11/21/16 10:19 Dose: 4 mg Oxycodone/Acetaminophen (Percocet 5/325 Mg Tab) 2 tab PO Q4H PRN PRN Reason: Pain, moderate (4-7) Stop: 11/28/16 22:06 Last Admin: 11/26/16 19:45 Dose: 2 tab Saccharomyces Boulardii (Florastor) 500 mg PO BID [facility] Last Admin: 11/26/16 17:24 Dose: 500 mg Vancomycin HCl (Vancocin (Oral Or Rectal Use)) 125 mg PO Q6 [facility] Last Admin: 11/27/16 00:10 Dose: 125 mg - Labs Labs: 11/26/16 07:10 11/26/16 07:10 PT 15.8 SECONDS (9.7-12.2) H 11/17/16 08:41 INR 1.4 11/17/16 08:41 APTT 32 SECONDS (21-34) 11/17/16 08:41 - Constitutional Appears: Non-toxic, No Acute Distress - Head Exam Head Exam: ATRAUMATIC - Respiratory Exam Respiratory Exam: Clear to Ausculation Bilateral, NORMAL BREATHING PATTERN Additional comments: pigtail in place. 20cc/12hrs. will monitor in 24hrs in AM - Cardiovascular Exam Cardiovascular Exam: REGULAR RHYTHM, +S1, +S2 - GI/Abdominal Exam GI & Abdominal Exam: Soft. absent: Distended, Firm, Guarding, Rigid, Tenderness , Rebound - Neurological Exam Neurological Exam: Alert, Awake Assessment and Plan - Assessment and Plan (Free Text) Assessment: 40M w. R parapneumonic effusion/empyema, s/p VATS converted to thoracotomy, w/ decortication and wedge resection POD#24 s/p IR CT guided pigtail placement on - monitor output - remove pigtail when output less than 20cc/24hrs, possibly monday - dressing changes - incentive spirometer Further recs discuss with Dr. Hernando Ponce, PGY1
[2016-11-27] MEDS: Albuterol-Ipratrop 3 mg / 0.5 (3 ml) UD INH SCH ×4 (01:24→19:59)
[2016-11-27] MEDS: metroNIDAZOLE IV 500 mg/100 ml 500 MG/100 ML BAG IVPB SCH ×3 (05:25→21:29)
--- NOTE | 2016-11-27 07:12 | CP.PCM.PN ---
Subjective - Date & Time of Evaluation Date of Evaluation: 11/27/16 Time of Evaluation: 07:05 - Subjective Subjective: tolerating po no cp Objective - Vital Signs/Intake and Output Vital Signs (last 24 hours): Temp Pulse Resp BP Pulse Ox 97.8 F 82 20 149/83 99 11/27/16 00:15 11/27/16 00:15 11/27/16 00:15 11/27/16 00:15 11/27/16 00:15 Intake and Output: 11/27/16 11/27/16 06:59 18:59 Output Total 10 Balance -10 - Medications Medications: Current Medications Albuterol/Ipratropium (Duoneb 3 Mg/0.5 Mg (3 Ml) Ud) 3 ml INH RQ6 [facility] Last Admin: 11/27/16 01:24 Dose: 3 ml Famotidine (Pepcid) 20 mg PO DAILY [facility] Last Admin: 11/26/16 09:59 Dose: 20 mg Folic Acid (Folic Acid) 1 mg PO DAILY [facility] Last Admin: 11/26/16 09:59 Dose: 1 mg Glipizide (Glucotrol) 2.5 mg PO DAILY [facility] Last Admin: 11/26/16 09:59 Dose: 2.5 mg Guaifenesin/Dextromethorphan (Robitussin Dm) 10 ml PO Q4H PRN PRN Reason: Cough and congestion Last Admin: 11/26/16 10:00 Dose: 10 ml Metronidazole (Flagyl) 500 mg in 100 mls @ 100 mls/hr IVPB Q8 [facility] Last Admin: 11/27/16 05:25 Dose: 100 mls/hr Imipenem/Cilastatin Sodium 1, (000 mg/ Sodium Chloride) 250 mls @ 250 mls/hr IVPB Q8H [facility] Last Admin: 11/27/16 00:10 Dose: 250 mls/hr Insulin Aspart (Novolog) 0 unit SC ACHS [facility] PRN Reason: Protocol Last Admin: 11/26/16 21:39 Dose: Not Given Insulin Detemir (Levemir) 40 unit SC Q12 [facility] Last Admin: 11/26/16 22:06 Dose: 40 unit Lisinopril (Zestril) 20 mg PO DAILY [facility] Last Admin: 11/26/16 09:58 Dose: 20 mg Metoprolol Tartrate (Lopressor) 50 mg PO Q12H [facility] Last Admin: 11/26/16 19:46 Dose: 50 mg Morphine Sulfate (Morphine) 2 mg IVP Q4 PRN PRN Reason: Pain, severe (8-10) Last Admin: 11/27/16 04:37 Dose: 2 mg Ondansetron HCl (Zofran Inj) 4 mg IVP Q4 PRN PRN Reason: Nausea/Vomiting Last Admin: 11/21/16 10:19 Dose: 4 mg Oxycodone/Acetaminophen (Percocet 5/325 Mg Tab) 2 tab PO Q4H PRN PRN Reason: Pain, moderate (4-7) Stop: 11/28/16 22:06 Last Admin: 11/26/16 19:45 Dose: 2 tab Saccharomyces Boulardii (Florastor) 500 mg PO BID [facility] Last Admin: 11/26/16 17:24 Dose: 500 mg Vancomycin HCl (Vancocin (Oral Or Rectal Use)) 125 mg PO Q6 [facility] Last Admin: 11/27/16 05:26 Dose: 125 mg - Labs Labs: 11/26/16 07:10 11/26/16 07:10 PT 15.8 SECONDS (9.7-12.2) H 11/17/16 08:41 INR 1.4 11/17/16 08:41 APTT 32 SECONDS (21-34) 11/17/16 08:41 - Constitutional Appears: Well - Head Exam Head Exam: ATRAUMATIC - Eye Exam Eye Exam: Normal appearance - ENT Exam ENT Exam: Mucous Membranes Moist - Respiratory Exam Respiratory Exam: Clear to Ausculation Bilateral - Cardiovascular Exam Cardiovascular Exam: REGULAR RHYTHM - GI/Abdominal Exam GI & Abdominal Exam: Soft - Extremities Exam Extremities Exam: absent: Pedal Edema - Neurological Exam Neurological Exam: Alert, Awake - Psychiatric Exam Psychiatric exam: Normal Affect - Skin Skin Exam: Dry, Normal Color Assessment and Plan (1) HTN (hypertension) Assessment & Plan: Blood pressure and tachycardia under control continue meds Status: Chronic (2) Tachycardia Status: Resolved
[2016-11-27] MEDS: (Novolog) Insulin Aspart, Recombinant 100 u/ml 10 ml vial SC SCH ×4 (07:30→22:42)
--- NOTE | 2016-11-27 07:50 | CP.PCM.PN ---
Subjective - Date & Time of Evaluation Date of Evaluation: 11/27/16 Time of Evaluation: 07:48 - Subjective Subjective: Patient had a pain in the last night. Did not sleep well. Complaining of minimal cough. Otherwise patient is doing okay. The chest tube very minimal drainage noted. No nausea vomiting. Objective - Vital Signs/Intake and Output Vital Signs (last 24 hours): Temp Pulse Resp BP Pulse Ox 97.8 F 82 20 149/83 99 11/27/16 00:15 11/27/16 00:15 11/27/16 00:15 11/27/16 00:15 11/27/16 00:15 Intake and Output: 11/27/16 11/27/16 06:59 18:59 Intake Total 830 Output Total 10 10 Balance -10 820 - Medications Medications: Current Medications Albuterol/Ipratropium (Duoneb 3 Mg/0.5 Mg (3 Ml) Ud) 3 ml INH RQ6 [facility] Last Admin: 11/27/16 07:36 Dose: Not Given Famotidine (Pepcid) 20 mg PO DAILY [facility] Last Admin: 11/26/16 09:59 Dose: 20 mg Folic Acid (Folic Acid) 1 mg PO DAILY [facility] Last Admin: 11/26/16 09:59 Dose: 1 mg Glipizide (Glucotrol) 2.5 mg PO DAILY [facility] Last Admin: 11/26/16 09:59 Dose: 2.5 mg Guaifenesin/Dextromethorphan (Robitussin Dm) 10 ml PO Q4H PRN PRN Reason: Cough and congestion Last Admin: 11/26/16 10:00 Dose: 10 ml Metronidazole (Flagyl) 500 mg in 100 mls @ 100 mls/hr IVPB Q8 [facility] Last Admin: 11/27/16 05:25 Dose: 100 mls/hr Imipenem/Cilastatin Sodium 1, (000 mg/ Sodium Chloride) 250 mls @ 250 mls/hr IVPB Q8H [facility] Last Admin: 11/27/16 00:10 Dose: 250 mls/hr Insulin Aspart (Novolog) 0 unit SC ACHS [facility] PRN Reason: Protocol Last Admin: 11/26/16 21:39 Dose: Not Given Insulin Detemir (Levemir) 40 unit SC Q12 [facility] Last Admin: 11/26/16 22:06 Dose: 40 unit Lisinopril (Zestril) 20 mg PO DAILY [facility] Last Admin: 11/26/16 09:58 Dose: 20 mg Metoprolol Tartrate (Lopressor) 50 mg PO Q12H [facility] Last Admin: 11/26/16 19:46 Dose: 50 mg Morphine Sulfate (Morphine) 2 mg IVP Q4 PRN PRN Reason: Pain, severe (8-10) Last Admin: 11/27/16 04:37 Dose: 2 mg Ondansetron HCl (Zofran Inj) 4 mg IVP Q4 PRN PRN Reason: Nausea/Vomiting Last Admin: 11/21/16 10:19 Dose: 4 mg Oxycodone/Acetaminophen (Percocet 5/325 Mg Tab) 2 tab PO Q4H PRN PRN Reason: Pain, moderate (4-7) Stop: 11/28/16 22:06 Last Admin: 11/26/16 19:45 Dose: 2 tab Saccharomyces Boulardii (Florastor) 500 mg PO BID [facility] Last Admin: 11/26/16 17:24 Dose: 500 mg Vancomycin HCl (Vancocin (Oral Or Rectal Use)) 125 mg PO Q6 [facility] Last Admin: 11/27/16 05:26 Dose: 125 mg Vital signs reviewed No neck vein distention noted Chest good air entry bilaterally, no wheezing or rales noted CVS regular heart sound, no murmur noted Abdomen soft, nontender. 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 Currently patient is having pigtail catheter. Chest tube removed. And status post a thoracoscopy. Possible removal of the acute follow-up. C. difficile colitis. Status: Acute (3) Pneumonia Status: Acute (4) Respiratory distress Status: Acute
--- NOTE | 2016-11-27 08:04 | RAD ---
HISTORY: Right chest tube, right pigtail COMPARISON: 11/26/2016 FINDINGS: LUNGS: Lines and tubes in stable position. Persistent moderate loculated right pleural effusion. Consolidative changes within the adjacent right lung base. Linear atelectasis in the right midlung zone. PLEURA: As above. CARDIOVASCULAR: Right paratracheal airspace opacity likely represents prominent vasculature. OSSEOUS STRUCTURES: No significant abnormalities. VISUALIZED UPPER ABDOMEN: Normal. OTHER FINDINGS: None. IMPRESSION: Lines and tubes in stable position. Persistent moderate loculated right pleural effusion. Consolidative changes within the adjacent right lung base. Linear atelectasis in the right midlung zone.
[2016-11-27] MEDS: Insulin Detemir 100 units/ml Vial (Levemir) SC SCH ×2 (10:08→21:29)
[2016-11-27] MEDS: GlipiZIDE 2.5 mg Tab PO SCH (10:08)
[2016-11-27] MEDS: Saccharomyces Boulardi 250 mg Cap PO SCH ×2 (10:08→17:09)
[2016-11-27] MEDS: Oxycodone/Acetaminophen 5/325 mg Tab PO PRN (14:07)
[2016-11-28] MEDS: Vancomycin 125 MG/5 ML SOLN (ORAL/RECTAL) PO SCH ×4 (00:13→17:39)
[2016-11-28] MEDS: Albuterol-Ipratrop 3 mg / 0.5 (3 ml) UD INH SCH ×4 (01:31→19:21)
[2016-11-28] MEDS: metroNIDAZOLE IV 500 mg/100 ml 500 MG/100 ML BAG IVPB SCH ×3 (05:26→21:05)
--- NOTE | 2016-11-28 07:42 | CP.PCM.PN ---
Subjective - Date & Time of Evaluation Date of Evaluation: 11/28/16 Time of Evaluation: 08:05 - Subjective Subjective: PGY-[address] Villagomez Pt S&E at bedside. Pt admits 2/10 pain at chest tube site, but denies shortness of breath or chest pain. He reports being able to walk around the department without issue, and is tolerating diet. He denies abdominal pain, N/V/D/C. Pigtail catheter with minimal drainage in last 24 hrs, so removed at bedside. Objective - Vital Signs/Intake and Output Vital Signs (last 24 hours): Temp Pulse Resp BP Pulse Ox 98.1 F 86 20 148/88 100 11/27/16 23:20 11/27/16 23:20 11/27/16 23:20 11/27/16 23:20 11/27/16 23:20 Intake and Output: 11/28/16 11/28/16 06:59 18:59 Intake Total 350 Output Total 30 Balance 320 - Medications Medications: Current Medications Albuterol/Ipratropium (Duoneb 3 Mg/0.5 Mg (3 Ml) Ud) 3 ml INH RQ6 [facility] Last Admin: 11/28/16 01:31 Dose: Not Given Famotidine (Pepcid) 20 mg PO DAILY [facility] Last Admin: 11/27/16 10:05 Dose: 20 mg Folic Acid (Folic Acid) 1 mg PO DAILY [facility] Last Admin: 11/27/16 10:07 Dose: 1 mg Glipizide (Glucotrol) 2.5 mg PO DAILY [facility] Last Admin: 11/27/16 10:08 Dose: 2.5 mg Guaifenesin/Dextromethorphan (Robitussin Dm) 10 ml PO Q4H PRN PRN Reason: Cough and congestion Last Admin: 11/26/16 10:00 Dose: 10 ml Metronidazole (Flagyl) 500 mg in 100 mls @ 100 mls/hr IVPB Q8 [facility] Last Admin: 11/28/16 05:26 Dose: 100 mls/hr Imipenem/Cilastatin Sodium 1, (000 mg/ Sodium Chloride) 250 mls @ 250 mls/hr IVPB Q8H [facility] Last Admin: 11/28/16 00:13 Dose: 250 mls/hr Insulin Aspart (Novolog) 0 unit SC ACHS [facility] PRN Reason: Protocol Last Admin: 11/27/16 22:42 Dose: Not Given Insulin Detemir (Levemir) 40 unit SC Q12 [facility] Last Admin: 11/27/16 21:29 Dose: 40 unit Lisinopril (Zestril) 20 mg PO DAILY [facility] Last Admin: 11/27/16 10:07 Dose: 20 mg Metoprolol Tartrate (Lopressor) 50 mg PO Q12H [facility] Last Admin: 11/27/16 20:09 Dose: 50 mg Morphine Sulfate (Morphine) 2 mg IVP Q4 PRN PRN Reason: Pain, severe (8-10) Last Admin: 11/28/16 06:27 Dose: 2 mg Ondansetron HCl (Zofran Inj) 4 mg IVP Q4 PRN PRN Reason: Nausea/Vomiting Last Admin: 11/21/16 10:19 Dose: 4 mg Oxycodone/Acetaminophen (Percocet 5/325 Mg Tab) 2 tab PO Q4H PRN PRN Reason: Pain, moderate (4-7) Stop: 11/28/16 22:06 Last Admin: 11/27/16 14:07 Dose: 2 tab Saccharomyces Boulardii (Florastor) 500 mg PO BID [facility] Last Admin: 11/27/16 17:09 Dose: 500 mg Vancomycin HCl (Vancocin (Oral Or Rectal Use)) 125 mg PO Q6 [facility] Last Admin: 11/28/16 05:26 Dose: 125 mg - Labs Labs: 11/26/16 07:10 11/26/16 07:10 PT 15.8 SECONDS (9.7-12.2) H 11/17/16 08:41 INR 1.4 11/17/16 08:41 APTT 32 SECONDS (21-34) 11/17/16 08:41 - Constitutional Appears: Non-toxic, No Acute Distress - Head Exam Head Exam: ATRAUMATIC, NORMAL INSPECTION, NORMOCEPHALIC - ENT Exam ENT Exam: Mucous Membranes Moist - Respiratory Exam Respiratory Exam: Clear to Ausculation Bilateral, NORMAL BREATHING PATTERN Additional comments: pigtail catheter removed, dressings changed - Cardiovascular Exam Cardiovascular Exam: REGULAR RHYTHM, +S1, +S2 - GI/Abdominal Exam GI & Abdominal Exam: Soft. absent: Distended, Firm, Guarding - Extremities Exam Extremities Exam: Normal Inspection. absent: Tenderness - Neurological Exam Neurological Exam: Alert, Awake, Oriented x3 - Skin Skin Exam: Normal Color, Warm Assessment and Plan - Assessment and Plan (Free Text) Assessment: 40M w. R parapneumonic effusion/empyema, s/p VATS converted to thoracotomy, w/ decortication and wedge resection POD#25 s/p IR CT guided pigtail placement on Plan: - pigtail catheter removed - dressing changes - OR tomorrow for wound closure - incentive spirometer - encouraged ambulation d/w Dr. Hernando [place], PGY-1
[2016-11-28] MEDS: (Novolog) Insulin Aspart, Recombinant 100 u/ml 10 ml vial SC SCH ×4 (08:00→21:04)
[2016-11-28] MEDS: Saccharomyces Boulardi 250 mg Cap PO SCH ×2 (09:54→17:38)
[2016-11-28] MEDS: GlipiZIDE 2.5 mg Tab PO SCH (09:55)
[2016-11-28] MEDS: Insulin Detemir 100 units/ml Vial (Levemir) SC SCH ×2 (09:58→21:07)
--- NOTE | 2016-11-28 10:01 | CP.PCM.PN ---
<Zay Prado - Last Filed: 11/28/16 09:53> Subjective - Date & Time of Evaluation Date of Evaluation: 11/28/16 Time of Evaluation: 07:55 - Subjective Subjective: Cardiology Progress Note Dr. Lin Patient seen and examined at the bedside. No acute distress. Per pt, increased pain overnight making sleep difficult, but cough is improved, no other complaints. No other issues as per pt and nursing. Patient is POD #25 s/ p thoracotomy with Dr. Villagomez. Denies SOB today, some lateral chest pain 2/2 coughing spells. The patient is resting comfortably in the bed at time of exam. He denies all other complaints this morning. 12 point review of systems was completed and negative except for the above, stated complaints. Currently, only the mid-back pigtail drain remains, pending possible IR pigtail removal today; all other chest tubes have been removed. Objective - Vital Signs/Intake and Output Vital Signs (last 24 hours): Temp Pulse Resp BP Pulse Ox 98.3 F 84 18 159/90 H 98 11/28/16 07:25 11/28/16 07:25 11/28/16 07:25 11/28/16 07:25 11/28/16 07:25 Intake and Output: 11/28/16 11/28/16 06:59 18:59 Intake Total 350 Output Total 30 Balance 320 - Medications Medications: Current Medications Albuterol/Ipratropium (Duoneb 3 Mg/0.5 Mg (3 Ml) Ud) 3 ml INH RQ6 [facility] Last Admin: 11/28/16 09:08 Dose: 3 ml Famotidine (Pepcid) 20 mg PO DAILY [facility] Last Admin: 11/27/16 10:05 Dose: 20 mg Folic Acid (Folic Acid) 1 mg PO DAILY [facility] Last Admin: 11/27/16 10:07 Dose: 1 mg Glipizide (Glucotrol) 2.5 mg PO DAILY [facility] Last Admin: 11/27/16 10:08 Dose: 2.5 mg Guaifenesin/Dextromethorphan (Robitussin Dm) 10 ml PO Q4H PRN PRN Reason: Cough and congestion Last Admin: 11/26/16 10:00 Dose: 10 ml Metronidazole (Flagyl) 500 mg in 100 mls @ 100 mls/hr IVPB Q8 [facility] Last Admin: 05/22/17 05:26 Dose: 100 mls/hr Imipenem/Cilastatin Sodium 1, (000 mg/ Sodium Chloride) 250 mls @ 250 mls/hr IVPB Q8H [facility] Last Admin: 11/28/16 00:13 Dose: 250 mls/hr Insulin Aspart (Novolog) 0 unit SC ACHS [facility] PRN Reason: Protocol Last Admin: 11/27/16 22:42 Dose: Not Given Insulin Detemir (Levemir) 40 unit SC Q12 [facility] Last Admin: 11/27/16 21:29 Dose: 40 unit Lisinopril (Zestril) 20 mg PO DAILY [facility] Last Admin: 11/27/16 10:07 Dose: 20 mg Metoprolol Tartrate (Lopressor) 50 mg PO Q12H [facility] Last Admin: 11/27/16 20:09 Dose: 50 mg Morphine Sulfate (Morphine) 2 mg IVP Q4 PRN PRN Reason: Pain, severe (8-10) Last Admin: 11/28/16 06:27 Dose: 2 mg Ondansetron HCl (Zofran Inj) 4 mg IVP Q4 PRN PRN Reason: Nausea/Vomiting Last Admin: 11/21/16 10:19 Dose: 4 mg Oxycodone/Acetaminophen (Percocet 5/325 Mg Tab) 2 tab PO Q4H PRN PRN Reason: Pain, moderate (4-7) Stop: 11/28/16 22:06 Last Admin: 11/27/16 14:07 Dose: 2 tab Saccharomyces Boulardii (Florastor) 500 mg PO BID [facility] Last Admin: 11/27/16 17:09 Dose: 500 mg Vancomycin HCl (Vancocin (Oral Or Rectal Use)) 125 mg PO Q6 [facility] Last Admin: 11/28/16 05:26 Dose: 125 mg - Labs Labs: 11/26/16 07:10 11/26/16 07:10 PT 15.8 SECONDS (9.7-12.2) H 11/17/16 08:41 INR 1.4 11/17/16 08:41 APTT 32 SECONDS (21-34) 11/17/16 08:41 - Additional Findings Additional findings: - Constitutional Appears: Well, Non-toxic, No Acute Distress, Resting in bed comfortably - Head Exam Head Exam: ATRAUMATIC, NORMAL INSPECTION, NORMOCEPHALIC - Eye Exam Eye Exam: EOMI, Normal appearance. absent: Conjunctival injection, Scleral icterus Pupil Exam: absent: Irregular, Unequal - ENT Exam ENT Exam: Mucous Membranes Moist - Neck Exam Neck Exam: Full ROM. absent: Tenderness - Respiratory Exam Respiratory Exam: Chest Wall Tenderness (at and adjacent to site of mid-back pigtail drain, bilateral lateral chest wall tenderness with coughing spells), Decreased Breath Sounds (mild decreased breath sounds, equal bilaterally, unchanged), Clear to Ausculation Bilateral, NORMAL BREATHING PATTERN, Mid-back pigtail drain in place on suction (no drainage in tubing at time of exam). absent: Accessory Muscle Use, Rales, Rhonchi, Wheezes - Cardiovascular Exam Cardiovascular Exam: REGULAR RHYTHM, RRR, +S1, +S2. absent: Bradycardia, Tachycardia, Systolic or Diastolic murmurs, Clicks - GI/Abdominal Exam GI & Abdominal Exam: Soft, Normal Bowel Sounds. absent: Distended, Firm, Rigid , Tenderness, Diminished Bowel Sounds, Hypoactive Bowel Sounds - Extremities Exam Extremities Exam: Full ROM, Normal Capillary Refill, Pedal Edema (+1 pitting edema bilateral LE extending up to mid moore, wearing compression stockings). absent: Tenderness, Calf Tenderness, Joint Swelling, Normal Inspection - Neurological Exam Neurological Exam: Alert, Awake, CN II-XII Intact, Oriented x3 - Psychiatric Exam Psychiatric exam: Normal Mood, Normal Affect - Skin Skin Exam: Dry, Intact (except at site of two prior chest tubes and at site of remaining pigtail drain), Normal Color, Warm Assessment and Plan (1) Tachycardia Assessment & Plan: 11/04/16 ELG- sinus tachycardia, physiologic axis, normal HI interval, normal QRS duration, prolonged QTc, poor R wave progression, no ST or T wave abnormalities 11/02/16 EKG- sinus tachycardia, right axis deviation, normal HI interval, normal QRS duration, prolonged QTc, nonspecific ST/T wave abnormality 11/03/15 Echo- EF 53%, normal diastolic filling pressures Troponin negative x 2 (<0.0120 x 2) CK-MB negative x 2 (1.00 > 0.63) BNP 102 (normal) -cardiac stable at this point -no further tachycardia noted on recorded vitals, patient denies any racing heartbeat -will continue to monitor -continue Lopressor 50mg PO q12 Status: Resolved (2) Bilateral lower extremity edema Assessment & Plan: -Continue Lasix 20mg IVP q12 -José hose stockings, ambulating with PT as tolerated -Encourage patient to keep legs elevated and not flat or dangling off of bed when lying down Status: Resolved (3) Pre-procedural cardiovascular examination Assessment & Plan: -Cardiac Risk Assessment- Low Risk (POD #10 s/p VATS) - Detsky Score 10: Class I - Low Risk - Jenkins Score 3: Class I - Low Risk - Tunde Score 2- Moderate Risk Status: Resolved - Assessment and Plan (Free Text) Assessment: Case discussed with Dr Lin. <Saravanan Lin - Last Filed: 12/01/16 07:22> Objective - Vital Signs/Intake and Output Vital Signs (last 24 hours): Temp Pulse Resp BP Pulse Ox 97.7 F 82 18 120/83 95 11/30/16 08:06 11/30/16 08:06 11/30/16 08:06 11/30/16 08:06 11/30/16 08:06 - Labs Labs: 11/29/16 07:08 11/29/16 07:08 PT 14.4 SECONDS (9.7-12.2) H 11/29/16 07:08 INR 1.3 11/29/16 07:08 APTT 35 SECONDS (21-34) H 11/29/16 07:08 Attending/Attestation - Attestation I have personally seen and examined this patient.: Yes I have fully participated in the care of the patient.: Yes I have reviewed all pertinent clinical information, including history, physical exam and plan: Yes Notes (Text): 12/01/16 07:22 heart rate still in 80s some cough this am that resolved
[2016-11-28] MEDS: Oxycodone/Acetaminophen 5/325 mg Tab PO PRN ×2 (10:03→21:00)
--- NOTE | 2016-11-28 14:33 | CP.PCM.PN ---
Subjective - Date & Time of Evaluation Date of Evaluation: 11/28/16 Time of Evaluation: 14:30 - Subjective Subjective: pt s/e. Pigtail-20cc/y of serosanguinoouis. scxr- satisfactory-no pneumo wound-covered with healthy granulaltion tissue. a/p: d/c pigtail-done. Wound-clossure by secondary intention in or tomorrow. d/w residents. Objective - Vital Signs/Intake and Output Vital Signs (last 24 hours): Temp Pulse Resp BP Pulse Ox 98.3 F 84 18 159/90 H 98 11/28/16 07:25 11/28/16 07:25 11/28/16 07:25 11/28/16 07:25 11/28/16 07:25 Intake and Output: 11/28/16 11/28/16 06:59 18:59 Intake Total 350 Output Total 30 Balance 320 - Medications Medications: Current Medications Albuterol/Ipratropium (Duoneb 3 Mg/0.5 Mg (3 Ml) Ud) 3 ml INH RQ6 [facility] Last Admin: 11/28/16 13:55 Dose: Not Given Famotidine (Pepcid) 20 mg PO DAILY [facility] Last Admin: 11/28/16 09:55 Dose: 20 mg Folic Acid (Folic Acid) 1 mg PO DAILY [facility] Last Admin: 11/28/16 09:54 Dose: 1 mg Glipizide (Glucotrol) 2.5 mg PO DAILY [facility] Last Admin: 11/28/16 09:55 Dose: 2.5 mg Guaifenesin/Dextromethorphan (Robitussin Dm) 10 ml PO Q4H PRN PRN Reason: Cough and congestion Last Admin: 11/26/16 10:00 Dose: 10 ml Metronidazole (Flagyl) 500 mg in 100 mls @ 100 mls/hr IVPB Q8 [facility] Last Admin: 11/28/16 14:00 Dose: 100 mls/hr Imipenem/Cilastatin Sodium 1, (000 mg/ Sodium Chloride) 250 mls @ 250 mls/hr IVPB Q8H [facility] Last Admin: 11/28/16 09:00 Dose: 250 mls/hr Insulin Aspart (Novolog) 0 unit SC ACHS [facility] PRN Reason: Protocol Last Admin: 11/28/16 12:18 Dose: 4 unit Insulin Detemir (Levemir) 40 unit SC Q12 [facility] Last Admin: 11/28/16 09:58 Dose: 40 unit Lisinopril (Zestril) 20 mg PO DAILY [facility] Last Admin: 11/28/16 10:05 Dose: 20 mg Metoprolol Tartrate (Lopressor) 50 mg PO Q12H [facility] Last Admin: 11/28/16 09:54 Dose: 50 mg Morphine Sulfate (Morphine) 2 mg IVP Q4 PRN PRN Reason: Pain, severe (8-10) Last Admin: 11/28/16 14:00 Dose: 2 mg Ondansetron HCl (Zofran Inj) 4 mg IVP Q4 PRN PRN Reason: Nausea/Vomiting Last Admin: 11/21/16 10:19 Dose: 4 mg Oxycodone/Acetaminophen (Percocet 5/325 Mg Tab) 2 tab PO Q4H PRN PRN Reason: Pain, moderate (4-7) Stop: 11/28/16 22:06 Last Admin: 11/28/16 10:03 Dose: 2 tab Saccharomyces Boulardii (Florastor) 500 mg PO BID [facility] Last Admin: 11/28/16 09:54 Dose: 500 mg Vancomycin HCl (Vancocin (Oral Or Rectal Use)) 125 mg PO Q6 [facility] Last Admin: 11/28/16 12:00 Dose: 125 mg - Labs Labs: 11/26/16 07:10 11/26/16 07:10 PT 15.8 SECONDS (9.7-12.2) H 11/17/16 08:41 INR 1.4 11/17/16 08:41 APTT 32 SECONDS (21-34) 11/17/16 08:41
--- NOTE | 2016-11-28 16:27 | RAD ---
HISTORY: s/p pigtail catheter removal COMPARISON: 11/27/2016 FINDINGS: LUNGS: No pulmonary infiltrate. PLEURA: Small right pleural effusion, unchanged. Status post removal of right pleural pigtail catheter. No pneumothorax identified. Mild nonspecific elevation of right hemidiaphragm. CARDIOVASCULAR: Normal heart size. No congestive change. Right PICC catheter unchanged, most likely terminating in SVC. OSSEOUS STRUCTURES: No significant abnormalities. VISUALIZED UPPER ABDOMEN: Normal. OTHER FINDINGS: None. IMPRESSION: Small right pleural effusion. Status post removal of right pleural pigtail catheter with no pneumothorax.
--- NOTE | 2016-11-28 17:37 | CP.PCM.PN ---
Subjective - Date & Time of Evaluation Date of Evaluation: 11/28/16 Time of Evaluation: 17:33 - Subjective Subjective: INFECTIOUS DISEASE PROGRESS NOTE MARIA DIAZ MD, FACP 6T 654 11/28/2016 CHART REVIEWED PT EXAMINED CASE DISCUSSED CLINICALLY PT LOOKS BETTER TODAY COMPARED TO MONDAY UP AND ABOUT WITH LAST POSTERIORLY PLACED IR CHEST TUBE OUT! TODAY! GOOD BREATH SOUNDS LEFT AND MUCH IMPROVED BREATH SOUNDS RIGHT BASE OF LUNG WITH NO RALES OR RHONCHI APPRECIATED! REPEAT CXR TOMORROW. IF STABLE SOON, CONSIDER [facility] IV ANTIBIOTICS FOR 2 MORE WEEKS, PLUS PO FLAGYL AND PO VANCOMYCIN. Objective - Vital Signs/Intake and Output Vital Signs (last 24 hours): Temp Pulse Resp BP Pulse Ox 97.5 F L 77 20 133/80 99 11/28/16 15:00 11/28/16 15:00 11/28/16 15:00 11/28/16 15:00 11/28/16 15:00 Intake and Output: 11/28/16 11/28/16 06:59 18:59 Intake Total 350 Output Total 30 Balance 320 - Medications Medications: Current Medications Albuterol/Ipratropium (Duoneb 3 Mg/0.5 Mg (3 Ml) Ud) 3 ml INH RQ6 [facility] Last Admin: 11/28/16 13:55 Dose: Not Given Famotidine (Pepcid) 20 mg PO DAILY [facility] Last Admin: 11/28/16 09:55 Dose: 20 mg Folic Acid (Folic Acid) 1 mg PO DAILY [facility] Last Admin: 11/28/16 09:54 Dose: 1 mg Glipizide (Glucotrol) 2.5 mg PO DAILY [facility] Last Admin: 11/28/16 09:55 Dose: 2.5 mg Guaifenesin/Dextromethorphan (Robitussin Dm) 10 ml PO Q4H PRN PRN Reason: Cough and congestion Last Admin: 11/26/16 10:00 Dose: 10 ml Metronidazole (Flagyl) 500 mg in 100 mls @ 100 mls/hr IVPB Q8 [facility] Last Admin: 11/28/16 14:00 Dose: 100 mls/hr Imipenem/Cilastatin Sodium 1, (000 mg/ Sodium Chloride) 250 mls @ 250 mls/hr IVPB Q8H [facility] Last Admin: 11/28/16 09:00 Dose: 250 mls/hr Insulin Aspart (Novolog) 0 unit SC ACHS [facility] PRN Reason: Protocol Last Admin: 11/28/16 12:18 Dose: 4 unit Insulin Detemir (Levemir) 40 unit SC Q12 [facility] Last Admin: 11/28/16 09:58 Dose: 40 unit Lisinopril (Zestril) 20 mg PO DAILY [facility] Last Admin: 11/28/16 10:05 Dose: 20 mg Metoprolol Tartrate (Lopressor) 50 mg PO Q12H [facility] Last Admin: 11/28/16 09:54 Dose: 50 mg Morphine Sulfate (Morphine) 2 mg IVP Q4 PRN PRN Reason: Pain, severe (8-10) Last Admin: 11/28/16 14:00 Dose: 2 mg Ondansetron HCl (Zofran Inj) 4 mg IVP Q4 PRN PRN Reason: Nausea/Vomiting Last Admin: 11/21/16 10:19 Dose: 4 mg Oxycodone/Acetaminophen (Percocet 5/325 Mg Tab) 2 tab PO Q4H PRN PRN Reason: Pain, moderate (4-7) Stop: 11/28/16 22:06 Last Admin: 11/28/16 10:03 Dose: 2 tab Saccharomyces Boulardii (Florastor) 500 mg PO BID [facility] Last Admin: 11/28/16 09:54 Dose: 500 mg Vancomycin HCl (Vancocin (Oral Or Rectal Use)) 125 mg PO Q6 [facility] Last Admin: 11/28/16 12:00 Dose: 125 mg - Labs Labs: 11/26/16 07:10 11/26/16 07:10 PT 15.8 SECONDS (9.7-12.2) H 11/17/16 08:41 INR 1.4 11/17/16 08:41 APTT 32 SECONDS (21-34) 11/17/16 08:41 - Constitutional Appears: Non-toxic, No Acute Distress - Head Exam Head Exam: ATRAUMATIC - Eye Exam Eye Exam: Normal appearance Pupil Exam: NORMAL ACCOMODATION - ENT Exam ENT Exam: Mucous Membranes Moist - Respiratory Exam Respiratory Exam: Decreased Breath Sounds, Clear to Ausculation Bilateral, NORMAL BREATHING PATTERN - Cardiovascular Exam Cardiovascular Exam: REGULAR RHYTHM - GI/Abdominal Exam GI & Abdominal Exam: Soft, Normal Bowel Sounds. absent: Bruit, Distended, Firm , Guarding, Rigid, Tenderness, Rebound - Rectal Exam Rectal Exam: Deferred - Back Exam Back Exam: NORMAL INSPECTION - Neurological Exam Neurological Exam: Alert, Awake - Psychiatric Exam Psychiatric exam: Normal Affect, Normal Mood - Skin Skin Exam: Normal Color, Warm Assessment and Plan (1) Empyema Status: Resolved (2) Pneumonia Status: Suspected (3) Pleural effusion on right Status: Resolved (4) Bilateral lower extremity edema Status: Resolved (5) Anemia Status: Chronic (6) Hyperglycemia Status: Chronic (7) HTN (hypertension) Status: Chronic (8) Diarrhea Status: Resolved (9) Diabetes 1.5, managed as type 2 Status: Chronic
--- NOTE | 2016-11-28 19:01 | CP.PCM.PN ---
Subjective - Date & Time of Evaluation Date of Evaluation: 11/28/16 Time of Evaluation: 19:00 - Subjective Subjective: Patient today feeling much better. The pain is less. Complaining of minimal cough. The pigtail catheter was removed today. No other major active symptoms Objective - Vital Signs/Intake and Output Vital Signs (last 24 hours): Temp Pulse Resp BP Pulse Ox 97.5 F L 77 20 133/80 99 11/28/16 15:00 11/28/16 15:00 11/28/16 15:00 11/28/16 15:00 11/28/16 15:00 Vital signs reviewed No neck vein distention noted Chest good air entry bilaterally, no wheezing or rales noted CVS regular heart sound, no murmur noted Abdomen soft, nontender. Extremities no pedal edema [employer] alert awake oriented 3, no functional neurological deficit - Medications Medications: Current Medications Albuterol/Ipratropium (Duoneb 3 Mg/0.5 Mg (3 Ml) Ud) 3 ml INH RQ6 [facility] Last Admin: 11/28/16 13:55 Dose: Not Given Famotidine (Pepcid) 20 mg PO DAILY [facility] Last Admin: 11/28/16 09:55 Dose: 20 mg Folic Acid (Folic Acid) 1 mg PO DAILY [facility] Last Admin: 11/28/16 09:54 Dose: 1 mg Glipizide (Glucotrol) 2.5 mg PO DAILY [facility] Last Admin: 11/28/16 09:55 Dose: 2.5 mg Guaifenesin/Dextromethorphan (Robitussin Dm) 10 ml PO Q4H PRN PRN Reason: Cough and congestion Last Admin: 11/26/16 10:00 Dose: 10 ml Metronidazole (Flagyl) 500 mg in 100 mls @ 100 mls/hr IVPB Q8 [facility] Last Admin: 11/28/16 14:00 Dose: 100 mls/hr Imipenem/Cilastatin Sodium 1, (000 mg/ Sodium Chloride) 250 mls @ 250 mls/hr IVPB Q8H [facility] Last Admin: 11/28/16 17:39 Dose: 250 mls/hr Insulin Aspart (Novolog) 0 unit SC ACHS [facility] PRN Reason: Protocol Last Admin: 11/28/16 17:40 Dose: 4 unit Insulin Detemir (Levemir) 40 unit SC Q12 [facility] Last Admin: 11/28/16 09:58 Dose: 40 unit Lisinopril (Zestril) 20 mg PO DAILY [facility] Last Admin: 11/28/16 10:05 Dose: 20 mg Metoprolol Tartrate (Lopressor) 50 mg PO Q12H [facility] Last Admin: 11/28/16 09:54 Dose: 50 mg Morphine Sulfate (Morphine) 2 mg IVP Q4 PRN PRN Reason: Pain, severe (8-10) Last Admin: 11/28/16 14:00 Dose: 2 mg Ondansetron HCl (Zofran Inj) 4 mg IVP Q4 PRN PRN Reason: Nausea/Vomiting Last Admin: 11/21/16 10:19 Dose: 4 mg Oxycodone/Acetaminophen (Percocet 5/325 Mg Tab) 2 tab PO Q4H PRN PRN Reason: Pain, moderate (4-7) Stop: 11/28/16 22:06 Last Admin: 11/28/16 10:03 Dose: 2 tab Saccharomyces Boulardii (Florastor) 500 mg PO BID [facility] Last Admin: 11/28/16 17:38 Dose: 500 mg Vancomycin HCl (Vancocin (Oral Or Rectal Use)) 125 mg PO Q6 [facility] Last Admin: 11/28/16 17:39 Dose: 125 mg - Labs Labs: 11/26/16 07:10 11/26/16 07:10 PT 15.8 SECONDS (9.7-12.2) H 11/17/16 08:41 INR 1.4 11/17/16 08:41 APTT 32 SECONDS (21-34) 11/17/16 08:41 Assessment and Plan (1) Dyspnea Status: Acute (2) Pleural effusion on right Assessment & Plan: Patient with acute pneumonia complicated with parapneumonic effusion, status post a chest tube, video-assisted thoracoscope he. Multiple chest tube placement. Improving currently. Continue the current treatment. ID follow-up appreciated. Patient also had evidence of C. difficile colitis is controlled at this time, will follow the patient Status: Resolved (3) Pneumonia Status: Acute (4) Respiratory distress Status: Acute
[2016-11-29] MEDS: Vancomycin 125 MG/5 ML SOLN (ORAL/RECTAL) PO SCH ×3 (00:08→12:00)
[2016-11-29] MEDS: Albuterol-Ipratrop 3 mg / 0.5 (3 ml) UD INH SCH ×3 (01:20→20:22)
[2016-11-29] MEDS: metroNIDAZOLE IV 500 mg/100 ml 500 MG/100 ML BAG IVPB SCH ×4 (05:18→21:23)
[2016-11-29] MEDS: (Novolog) Insulin Aspart, Recombinant 100 u/ml 10 ml vial SC SCH ×4 (07:30→21:25)
[2016-11-29 07:32] LABS: BASO % 0.3 % (0.0-2.0); EOS # 0.1 K/uL (0.0-0.7); EOS % 2.9 % (0.0-4.0); HEMATOCRIT 28.7 % (35.0-51.0); INR 1.3; LYMPH % 40.5 % (20.0-40.0); MEAN CELL VOLUME 82.7 fL (80.0-94.0); MEAN CORPUSCULAR HGB CONC 32.7 g/dL (33.0-37.0); MONO # 0.6 K/uL (0.0-0.8); MONO % 11.8 % (0.0-10.0); NRBC % 0.1 % (0.0-2.0); RED CELL DISTRIBUTION WIDTH 16.8 % (11.5-14.5)
[2016-11-29 07:36] LABS: CHLORIDE 97 mmol/L (98-107); POTASSIUM 3.7 mmol/L (3.6-5.2); SODIUM 135 mmol/L (132-148)
[2016-11-29 07:38] LABS: GFR AFRICAN-AMERICAN > 60
[2016-11-29 07:39] LABS: BLOOD UREA NITROGEN 13 mg/dL (9-20); CALCIUM 8.3 mg/dl (8.6-10.4); CARBON DIOXIDE 28 mmol/L (22-30); GLUCOSE,RANDOM 72 mg/dL (75-110)
[2016-11-29] MEDS: Insulin Detemir 100 units/ml Vial (Levemir) SC SCH ×2 (10:00→21:24)
[2016-11-29] MEDS: GlipiZIDE 2.5 mg Tab PO SCH (10:00)
[2016-11-29] MEDS: Saccharomyces Boulardi 250 mg Cap PO SCH ×3 (10:00→17:54)
--- NOTE | 2016-11-29 10:47 | CP.PCM.PN ---
<Zay Prado - Last Filed: 11/29/16 10:44> Subjective - Date & Time of Evaluation Date of Evaluation: 11/29/16 Time of Evaluation: 07:55 - Subjective Subjective: Cardiology Progress Note Dr. Lin Patient seen and examined at the bedside. No acute distress. IR pigtail drain was removed yesterday, site bandaged, patient schedule for wound closure today as per Surgery. Patient is POD #26 s/p thoracotomy with Dr. Villagomez. No acute events overnight as per pt and nursing; pt reports pain control greatly improved with removal of last tube. Denies SOB today or chest pain, coughing spells resolved. The patient is resting comfortably in the bed at time of exam. He denies all other complaints this morning. 12 point review of systems was completed and negative except for the above, stated complaints. Objective - Vital Signs/Intake and Output Vital Signs (last 24 hours): Temp Pulse Resp BP Pulse Ox 98.2 F 89 20 149/84 98 11/28/16 23:20 11/28/16 23:20 11/28/16 23:20 11/28/16 23:20 11/28/16 23:20 Intake and Output: 11/29/16 11/29/16 06:59 18:59 Intake Total 830 Balance 830 - Medications Medications: Current Medications Albuterol/Ipratropium (Duoneb 3 Mg/0.5 Mg (3 Ml) Ud) 3 ml INH RQ6 [facility] Last Admin: 11/29/16 07:27 Dose: 3 ml Dextrose (Dextrose 50% Inj) 50 ml IV PRN PRN PRN Reason: Hypoglycemia Famotidine (Pepcid) 20 mg PO DAILY [facility] Last Admin: 11/28/16 09:55 Dose: 20 mg Folic Acid (Folic Acid) 1 mg PO DAILY [facility] Last Admin: 11/28/16 09:54 Dose: 1 mg Glipizide (Glucotrol) 2.5 mg PO DAILY [facility] Last Admin: 11/28/16 09:55 Dose: 2.5 mg Guaifenesin/Dextromethorphan (Robitussin Dm) 10 ml PO Q4H PRN PRN Reason: Cough and congestion Last Admin: 11/26/16 10:00 Dose: 10 ml Metronidazole (Flagyl) 500 mg in 100 mls @ 100 mls/hr IVPB Q8 [facility] Last Admin: 11/29/16 05:18 Dose: 100 mls/hr Insulin Aspart (Novolog) 0 unit SC ACHS [facility] PRN Reason: Protocol Last Admin: 11/29/16 07:30 Dose: Not Given Insulin Detemir (Levemir) 40 unit SC Q12 [facility] Last Admin: 11/28/16 21:07 Dose: 40 unit Lisinopril (Zestril) 20 mg PO DAILY [facility] Last Admin: 11/28/16 10:05 Dose: 20 mg Metoprolol Tartrate (Lopressor) 50 mg PO Q12H [facility] Last Admin: 11/28/16 21:00 Dose: 50 mg Ondansetron HCl (Zofran Inj) 4 mg IVP Q4 PRN PRN Reason: Nausea/Vomiting Last Admin: 11/21/16 10:19 Dose: 4 mg Saccharomyces Boulardii (Florastor) 500 mg PO BID [facility] Last Admin: 11/28/16 17:38 Dose: 500 mg Vancomycin HCl (Vancocin (Oral Or Rectal Use)) 125 mg PO Q6 [facility] Last Admin: 11/29/16 05:19 Dose: 125 mg - Labs Labs: 11/29/16 07:08 11/29/16 07:08 PT 14.4 SECONDS (9.7-12.2) H 11/29/16 07:08 INR 1.3 11/29/16 07:08 APTT 35 SECONDS (21-34) H 11/29/16 07:08 - Additional Findings Additional findings: - Constitutional Appears: Well, Non-toxic, No Acute Distress, Resting in bed comfortably - Head Exam Head Exam: ATRAUMATIC, NORMAL INSPECTION, NORMOCEPHALIC - Eye Exam Eye Exam: EOMI, Normal appearance. absent: Conjunctival injection, Scleral icterus Pupil Exam: absent: Irregular, Unequal - ENT Exam ENT Exam: Mucous Membranes Moist - Neck Exam Neck Exam: Full ROM. absent: Tenderness - Respiratory Exam Respiratory Exam: Clear to Ausculation Bilaterally, Normal breath sounds, NORMAL BREATHING PATTERN, All chest tubes removed, bandaging over site of mid- back chest tube. absent: Accessory Muscle Use, Rales, Rhonchi, Wheezes, Decreased breath sounds, Chest wall tenderness - Cardiovascular Exam Cardiovascular Exam: REGULAR RHYTHM, RRR, +S1, +S2. absent: Bradycardia, Tachycardia, Systolic or Diastolic murmurs, Clicks - GI/Abdominal Exam GI & Abdominal Exam: Soft, Normal Bowel Sounds. absent: Distended, Firm, Rigid , Tenderness, Diminished Bowel Sounds, Hypoactive Bowel Sounds - Extremities Exam Extremities Exam: Full ROM, Normal Capillary Refill, Pedal Edema (+1 pitting edema bilateral LE extending up to mid moore, wearing compression stockings). absent: Tenderness, Calf Tenderness, Joint Swelling, Normal Inspection - Neurological Exam Neurological Exam: Alert, Awake, CN II-XII Intact, Oriented x3 - Psychiatric Exam Psychiatric exam: Normal Mood, Normal Affect - Skin Skin Exam: Dry, Intact (except at sites of removed chest tubes, actively healing closure at site of 2 chest tubes and bandaging at site of removed IR pigtail drain), Normal Color, Warm Assessment and Plan (1) Tachycardia Assessment & Plan: 11/04/16 ELG- sinus tachycardia, physiologic axis, normal MD interval, normal QRS duration, prolonged QTc, poor R wave progression, no ST or T wave abnormalities 11/02/16 EKG- sinus tachycardia, right axis deviation, normal MD interval, normal QRS duration, prolonged QTc, nonspecific ST/T wave abnormality 11/03/15 Echo- EF 53%, normal diastolic filling pressures Troponin negative x 2 (<0.0120 x 2) CK-MB negative x 2 (1.00 > 0.63) BNP 102 (normal) -cardiac stable at this point -no further tachycardia noted on recorded vitals, patient denies any racing heartbeat -will continue to monitor -continue Lopressor 50mg PO q12 Status: Resolved (2) Bilateral lower extremity edema Assessment & Plan: -Continue Lasix 20mg IVP q12 -José hose stockings, ambulating with PT as tolerated -Encourage patient to keep legs elevated and not flat or dangling off of bed when lying down Status: Resolved (3) Pre-procedural cardiovascular examination Assessment & Plan: -Cardiac Risk Assessment- Low Risk (POD #10 s/p VATS) - Detsky Score 10: Class I - Low Risk - Jenkins Score 3: Class I - Low Risk - Tunde Score 2- Moderate Risk Status: Resolved - Assessment and Plan (Free Text) Assessment: Case discussed with Dr Lin. <Saravanan Lin - Last Filed: 12/01/16 07:22> Objective - Vital Signs/Intake and Output Vital Signs (last 24 hours): Temp Pulse Resp BP Pulse Ox 97.7 F 82 18 120/83 95 11/30/16 08:06 11/30/16 08:06 11/30/16 08:06 11/30/16 08:06 11/30/16 08:06 - Labs Labs: 11/29/16 07:08 11/29/16 07:08 PT 14.4 SECONDS (9.7-12.2) H 11/29/16 07:08 INR 1.3 11/29/16 07:08 APTT 35 SECONDS (21-34) H 11/29/16 07:08 Attending/Attestation - Attestation I have personally seen and examined this patient.: Yes I have fully participated in the care of the patient.: Yes I have reviewed all pertinent clinical information, including history, physical exam and plan: Yes Notes (Text): 12/01/16 07:21 In great spirits tolerating PO d/c planning in progress
[2016-11-29] MEDS ORDERED: Dextrose 50% SYRINGE Inj (50 ml) IV PRN (12:04)
[2016-11-29] MEDS ORDERED: Sodium Chloride 0.9% 0 ML IV ONE (12:04)
[2016-11-29] MEDS ORDERED: metroNIDAZOLE IV 500 mg/100 ml 500 MG/100 ML BAG ONE (12:05)
[2016-11-29] MEDS ORDERED: Lidocaine 1% Inj (20ml) ONE (12:06)
[2016-11-29] MEDS ORDERED: Lactated Ringer's 1,000 ML IV ONE (12:20)
[2016-11-29] MEDS ORDERED: Propofol 10 mg/ml Inj (20 ML) ONE (12:27)
[2016-11-29] MEDS ORDERED: Midazolam 2 MG/2 ML VIAL ONE (12:27)
[2016-11-29] MEDS ORDERED: LIDOCAINE HYDROCHLORIDE INJ ONE (12:30)
[2016-11-29] MEDS ORDERED: SODIUM CHLORIDE INJ ONE (12:30)
[2016-11-29] MEDS ORDERED: Bacitracin Ointment 30 GM TUBE ONE (13:36)
--- NOTE | 2016-11-29 14:03 | PCM.SURG1 ---
Surgeon's Initial Post Op Note - Surgeon's Notes Surgeon: [facility] [employer] Specialist: Alyson PGY2 Type of Anesthesia: IV Sedation, Local Pre-Operative Diagnosis: Non-healing thoracotomy incision Operative Findings: fibrotic grannulation tissue Post-Operative Diagnosis: same Operation Performed: exscision, debridement, and closure of thoractomy incision Specimen/Specimens Removed: scar tissue Estimated Blood Loss: EBL {In ML}: 50 Blood Products Given: N/A Drains Used: No Drains Post-Op Condition: Good Date of Surgery/Procedure: 11/29/16 Time of Surgery/Procedure: 14:03
[2016-11-29] MEDS ORDERED: HYDROmorphone 0.5 mg/0.5 ml ISec IVP PRN (14:17)
[2016-11-29] MEDS ORDERED: Lactated Ringer's 1,000 ML IV SCH (14:30)
[2016-11-29] MEDS: Oxycodone/Acetaminophen 5/325 mg Tab PO PRN (17:55)
--- NOTE | 2016-11-29 18:54 | CP.PCM.PN ---
Subjective - Date & Time of Evaluation Date of Evaluation: 11/29/16 Time of Evaluation: 18:52 - Subjective Subjective: Patient had a chest tube removed yesterday. Today patient underwent a debridement of the wound in the right side the chest area. Some pain noted. This morning patient was feeling well, denies any chest pain. No cough noted, feeling otherwise better. Objective - Vital Signs/Intake and Output Vital Signs (last 24 hours): Temp Pulse Resp BP Pulse Ox 98.1 F 76 20 130/81 99 11/29/16 15:33 11/29/16 15:33 11/29/16 15:33 11/29/16 15:33 11/29/16 15:33 On examination: HEENT PERRLA, neck supple No thyromegaly was noted and no cervical adenopathy noted Chest bilateral good air entry, no wheezing or rales noted CVS regular heart sound, no murmur Abdomen soft and no organomegaly Extremities no pedal edema, no leg swelling, pedal pulses are good. 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 no functional neurological deficit Intake and Output: 11/29/16 11/29/16 06:59 18:59 Intake Total 830 70 Balance 830 70 - Medications Medications: Current Medications Albuterol/Ipratropium (Duoneb 3 Mg/0.5 Mg (3 Ml) Ud) 3 ml INH RQ6 [facility] Last Admin: 11/29/16 07:27 Dose: 3 ml Dextrose (Dextrose 50% Inj) 50 ml IV ONCE PRN PRN Reason: HYPOGLYCEMIA Docusate Sodium (Colace) 100 mg PO TID [facility] Last Admin: 11/29/16 17:57 Dose: Not Given Famotidine (Pepcid) 20 mg PO DAILY [facility] Last Admin: 11/29/16 14:45 Dose: 20 mg Folic Acid (Folic Acid) 1 mg PO DAILY [facility] Last Admin: 11/29/16 14:53 Dose: 1 mg Glipizide (Glucotrol) 2.5 mg PO DAILY [facility] Last Admin: 11/29/16 10:00 Dose: Not Given Guaifenesin/Dextromethorphan (Robitussin Dm) 10 ml PO Q4H PRN PRN Reason: Cough and congestion Last Admin: 11/26/16 10:00 Dose: 10 ml Heparin Sodium (Porcine) (Heparin) 5,000 units SC Q8 [facility] Metronidazole (Flagyl) 500 mg in 100 mls @ 100 mls/hr IVPB Q8 [facility] Last Admin: 11/29/16 14:40 Dose: 100 mls/hr Lactated Ringer's (Lactated Ringer's) 1,000 mls @ 100 mls/hr IV .Q10H [facility] Last Admin: 11/29/16 15:09 Dose: 100 mls/hr Insulin Aspart (Novolog) 0 unit SC ACHS [facility] PRN Reason: Protocol Last Admin: 11/29/16 12:00 Dose: Not Given Insulin Detemir (Levemir) 40 unit SC Q12 [facility] Last Admin: 11/29/16 10:00 Dose: Not Given Lisinopril (Zestril) 20 mg PO DAILY [facility] Last Admin: 11/29/16 14:52 Dose: 20 mg Metoprolol Tartrate (Lopressor) 50 mg PO Q12H [facility] Last Admin: 11/29/16 14:52 Dose: 50 mg Ondansetron HCl (Zofran Inj) 4 mg IVP Q4 PRN PRN Reason: Nausea/Vomiting Last Admin: 11/21/16 10:19 Dose: 4 mg Oxycodone/Acetaminophen (Percocet 5/325 Mg Tab) 2 tab PO Q6H PRN PRN Reason: Pain, moderate (4-7) Stop: 12/04/16 14:05 Last Admin: 11/29/16 17:55 Dose: 2 tab Saccharomyces Boulardii (Florastor) 500 mg PO BID [facility] Last Admin: 11/29/16 17:54 Dose: 500 mg - Labs Labs: 11/29/16 07:08 11/29/16 07:08 PT 14.4 SECONDS (9.7-12.2) H 11/29/16 07:08 INR 1.3 11/29/16 07:08 APTT 35 SECONDS (21-34) H 11/29/16 07:08 Assessment and Plan (1) Dyspnea Status: Acute (2) Pleural effusion on right Assessment & Plan: Patient with the severe empyema, pneumonia, complicated with the fibrothorax. Sepsis. Patient underwent a video-assisted thoracoscopy, chest tube placement. Currently on long-term IV antibiotic. Diabetes, poorly controlled. Improving. Patient underwent wound debridement today. Possible discharge plan tomorrow. I will discuss with the ID about the information about where antibiotic, as well as IV antibiotic. As well as placement. Will follow the patient Status: Resolved (3) Pneumonia Status: Acute (4) Respiratory distress Status: Acute
--- NOTE | 2016-11-29 19:01 | CP.PCM.PN ---
Subjective - Date & Time of Evaluation Date of Evaluation: 11/29/16 Time of Evaluation: 18:58 - Subjective Subjective: INFECTIOUS DISEASE PROGRESS NOTE MARIA DIAZ MD, FACP 6T 654 11/29/2016 CLINICALLY RESPONDING NICELY AFTER A LONG DIFFICULTY SITUATION LUNGS BETTER AIR MOVEMENT COR NOTED ABD SOFT NO DIARRHEA EXT OK ALERT AND FUNCTIONING. CONSIDER FOR 2 MORE WEEKS IV INVANZ 1 GRAM DAILY AND ALSO PO FLAGYL 500 MG PO QUID FOR 3 WEEKS. Objective - Vital Signs/Intake and Output Vital Signs (last 24 hours): Temp Pulse Resp BP Pulse Ox 98.1 F 76 20 130/81 99 11/29/16 15:33 11/29/16 15:33 11/29/16 15:33 11/29/16 15:33 11/29/16 15:33 Intake and Output: 11/29/16 11/29/16 06:59 18:59 Intake Total 830 70 Balance 830 70 - Medications Medications: Current Medications Albuterol/Ipratropium (Duoneb 3 Mg/0.5 Mg (3 Ml) Ud) 3 ml INH RQ6 [facility] Last Admin: 11/29/16 07:27 Dose: 3 ml Dextrose (Dextrose 50% Inj) 50 ml IV ONCE PRN PRN Reason: HYPOGLYCEMIA Docusate Sodium (Colace) 100 mg PO TID [facility] Last Admin: 11/29/16 17:57 Dose: Not Given Famotidine (Pepcid) 20 mg PO DAILY [facility] Last Admin: 11/29/16 14:45 Dose: 20 mg Folic Acid (Folic Acid) 1 mg PO DAILY [facility] Last Admin: 11/29/16 14:53 Dose: 1 mg Glipizide (Glucotrol) 2.5 mg PO DAILY [facility] Last Admin: 11/29/16 10:00 Dose: Not Given Guaifenesin/Dextromethorphan (Robitussin Dm) 10 ml PO Q4H PRN PRN Reason: Cough and congestion Last Admin: 11/26/16 10:00 Dose: 10 ml Heparin Sodium (Porcine) (Heparin) 5,000 units SC Q8 [facility] Metronidazole (Flagyl) 500 mg in 100 mls @ 100 mls/hr IVPB Q8 [facility] Last Admin: 11/29/16 14:40 Dose: 100 mls/hr Lactated Ringer's (Lactated Ringer's) 1,000 mls @ 100 mls/hr IV .Q10H [facility] Last Admin: 11/29/16 15:09 Dose: 100 mls/hr Insulin Aspart (Novolog) 0 unit SC ACHS [facility] PRN Reason: Protocol Last Admin: 11/29/16 18:55 Dose: 4 unit Insulin Detemir (Levemir) 40 unit SC Q12 [facility] Last Admin: 11/29/16 10:00 Dose: Not Given Lisinopril (Zestril) 20 mg PO DAILY [facility] Last Admin: 11/29/16 14:52 Dose: 20 mg Metoprolol Tartrate (Lopressor) 50 mg PO Q12H [facility] Last Admin: 11/29/16 14:52 Dose: 50 mg Ondansetron HCl (Zofran Inj) 4 mg IVP Q4 PRN PRN Reason: Nausea/Vomiting Last Admin: 11/21/16 10:19 Dose: 4 mg Oxycodone/Acetaminophen (Percocet 5/325 Mg Tab) 2 tab PO Q6H PRN PRN Reason: Pain, moderate (4-7) Stop: 12/04/16 14:05 Last Admin: 11/29/16 17:55 Dose: 2 tab Saccharomyces Boulardii (Florastor) 500 mg PO BID [facility] Last Admin: 11/29/16 17:54 Dose: 500 mg - Labs Labs: 11/29/16 07:08 11/29/16 07:08 PT 14.4 SECONDS (9.7-12.2) H 11/29/16 07:08 INR 1.3 11/29/16 07:08 APTT 35 SECONDS (21-34) H 11/29/16 07:08 Assessment and Plan (1) Empyema Status: Resolved (2) Pneumonia Status: Suspected (3) Pleural effusion on right Status: Resolved (4) Bilateral lower extremity edema Status: Resolved (5) Anemia Status: Chronic (6) Hyperglycemia Status: Chronic (7) HTN (hypertension) Status: Chronic (8) Diarrhea Status: Resolved (9) Diabetes 1.5, managed as type 2 Status: Chronic
[2016-11-30] MEDS: Albuterol-Ipratrop 3 mg / 0.5 (3 ml) UD INH SCH ×3 (01:08→13:26)
[2016-11-30] MEDS: Oxycodone/Acetaminophen 5/325 mg Tab PO PRN (03:35)
[2016-11-30] MEDS: metroNIDAZOLE IV 500 mg/100 ml 500 MG/100 ML BAG IVPB SCH (05:03)
[2016-11-30] MEDS: (Novolog) Insulin Aspart, Recombinant 100 u/ml 10 ml vial SC SCH ×2 (08:00→12:00)
[2016-11-30 08:07] VITALS: BP 120/83; PULSE 82; RESP 18; TEMP 97.7; O2SAT 95
--- NOTE | 2016-11-30 08:21 | CP.PCM.PN ---
Subjective - Date & Time of Evaluation Date of Evaluation: 11/30/16 Time of Evaluation: 08:19 - Subjective Subjective: Patient currently feeling better. Less pain noted. Denies any chest pain. Cough occasionally noted, no nausea vomiting. Objective - Vital Signs/Intake and Output Vital Signs (last 24 hours): Temp Pulse Resp BP Pulse Ox 97.7 F 82 18 120/83 95 11/30/16 08:06 11/30/16 08:06 11/30/16 08:06 11/30/16 08:06 11/30/16 08:06 On examination: HEENT PERRLA, neck supple No thyromegaly was noted and no cervical adenopathy noted Chest bilateral good air entry, no wheezing or rales noted CVS regular heart sound, no murmur Abdomen soft and no organomegaly Extremities no pedal edema, no leg swelling, pedal pulses are good. 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 no functional neurological deficit Intake and Output: 11/30/16 11/30/16 06:59 18:59 Intake Total 500 Balance 500 - Medications Medications: Current Medications Albuterol/Ipratropium (Duoneb 3 Mg/0.5 Mg (3 Ml) Ud) 3 ml INH RQ6 [facility] Last Admin: 11/30/16 07:48 Dose: 3 ml Famotidine (Pepcid) 20 mg PO DAILY [facility] Last Admin: 11/29/16 14:45 Dose: 20 mg Folic Acid (Folic Acid) 1 mg PO DAILY [facility] Last Admin: 11/29/16 14:53 Dose: 1 mg Glipizide (Glucotrol) 2.5 mg PO DAILY [facility] Last Admin: 11/29/16 10:00 Dose: Not Given Guaifenesin/Dextromethorphan (Robitussin Dm) 10 ml PO Q4H PRN PRN Reason: Cough and congestion Last Admin: 11/26/16 10:00 Dose: 10 ml Heparin Sodium (Porcine) (Heparin) 5,000 units SC Q8 [facility] Last Admin: 11/30/16 05:08 Dose: 5,000 units Metronidazole (Flagyl) 500 mg in 100 mls @ 100 mls/hr IVPB Q8 [facility] Last Admin: 11/30/16 05:03 Dose: 100 mls/hr Insulin Aspart (Novolog) 0 unit SC ACHS [facility] PRN Reason: Protocol Last Admin: 11/29/16 21:25 Dose: Not Given Insulin Detemir (Levemir) 40 unit SC Q12 [facility] Last Admin: 11/29/16 21:24 Dose: 40 unit Lisinopril (Zestril) 20 mg PO DAILY [facility] Last Admin: 11/29/16 14:52 Dose: 20 mg Metoprolol Tartrate (Lopressor) 50 mg PO Q12H [facility] Last Admin: 11/29/16 21:25 Dose: Not Given Saccharomyces Boulardii (Florastor) 500 mg PO BID [facility] Last Admin: 11/29/16 17:54 Dose: 500 mg - Labs Labs: 11/29/16 07:08 11/29/16 07:08 PT 14.4 SECONDS (9.7-12.2) H 11/29/16 07:08 INR 1.3 11/29/16 07:08 APTT 35 SECONDS (21-34) H 11/29/16 07:08 Assessment and Plan (1) Dyspnea Assessment & Plan: clinically patient is stable. Patient with history of diabetes. Currently on IV antibiotic. Patient's clinical stable. Possibly needs the rehabitation. The patient needs a Invanz 1 g IV daily for 2 weeks. Vancomycin and Flagyl for 2 more weeks. wound also necessary. Physical therapy needed. Status: Acute (2) Pleural effusion on right Status: Resolved (3) Pneumonia Status: Acute (4) Respiratory distress Status: Acute
[2016-11-30] MEDS ORDERED: Oxycodone/Acetaminophen 5/325 mg Tab PO PRN (08:41)
[2016-11-30] MEDS: Saccharomyces Boulardi 250 mg Cap PO SCH (09:44)
[2016-11-30] MEDS: GlipiZIDE 2.5 mg Tab PO SCH ×2 (09:44→10:00)
[2016-11-30] MEDS: Insulin Detemir 100 units/ml Vial (Levemir) SC SCH (09:46)
--- NOTE | 2016-11-30 10:26 | CP.PCM.PN ---
Subjective - Date & Time of Evaluation Date of Evaluation: 11/30/16 Time of Evaluation: 10:24 - Subjective Subjective: Surgery: Dr. Villagomez Pt seen and examined. Resting comfortably in bed. Mild incisional pain. Otherwise doing well in good spirits w. no complaints. Pt is eager to go home. Objective - Vital Signs/Intake and Output Vital Signs (last 24 hours): Temp Pulse Resp BP Pulse Ox 97.7 F 82 18 120/83 95 11/30/16 08:06 11/30/16 08:06 11/30/16 08:06 11/30/16 08:06 11/30/16 08:06 Intake and Output: 11/30/16 11/30/16 06:59 18:59 Intake Total 500 Balance 500 - Medications Medications: Current Medications Albuterol/Ipratropium (Duoneb 3 Mg/0.5 Mg (3 Ml) Ud) 3 ml INH RQ6 [facility] Last Admin: 11/30/16 07:48 Dose: 3 ml Famotidine (Pepcid) 20 mg PO DAILY [facility] Last Admin: 11/30/16 09:43 Dose: 20 mg Folic Acid (Folic Acid) 1 mg PO DAILY [facility] Last Admin: 11/30/16 09:44 Dose: 1 mg Glipizide (Glucotrol) 2.5 mg PO DAILY [facility] Last Admin: 11/30/16 09:44 Dose: 2.5 mg Guaifenesin/Dextromethorphan (Robitussin Dm) 10 ml PO Q4H PRN PRN Reason: Cough and congestion Last Admin: 11/26/16 10:00 Dose: 10 ml Heparin Sodium (Porcine) (Heparin) 5,000 units SC Q8 [facility] Last Admin: 11/30/16 05:08 Dose: 5,000 units Metronidazole (Flagyl) 500 mg in 100 mls @ 100 mls/hr IVPB Q8 [facility] Last Admin: 11/30/16 05:03 Dose: 100 mls/hr Insulin Aspart (Novolog) 0 unit SC ACHS [facility] PRN Reason: Protocol Last Admin: 11/30/16 08:00 Dose: Not Given Insulin Detemir (Levemir) 40 unit SC Q12 [facility] Last Admin: 11/30/16 09:46 Dose: 40 unit Lisinopril (Zestril) 20 mg PO DAILY [facility] Last Admin: 11/30/16 09:44 Dose: 20 mg Metoprolol Tartrate (Lopressor) 50 mg PO Q12H [facility] Last Admin: 11/30/16 09:44 Dose: 50 mg Oxycodone/Acetaminophen (Percocet 5/325 Mg Tab) 1 tab PO Q6H PRN PRN Reason: Pain, moderate (4-7) Stop: 12/03/16 08:42 Saccharomyces Boulardii (Florastor) 500 mg PO BID [facility] Last Admin: 11/30/16 09:44 Dose: 500 mg - Labs Labs: 11/29/16 07:08 11/29/16 07:08 PT 14.4 SECONDS (9.7-12.2) H 11/29/16 07:08 INR 1.3 11/29/16 07:08 APTT 35 SECONDS (21-34) H 11/29/16 07:08 - Constitutional Appears: Non-toxic, No Acute Distress - Head Exam Head Exam: ATRAUMATIC, NORMOCEPHALIC - Eye Exam Eye Exam: EOMI. absent: Scleral icterus - ENT Exam ENT Exam: Mucous Membranes Moist - Neck Exam Neck Exam: Full ROM - Respiratory Exam Respiratory Exam: NORMAL BREATHING PATTERN. absent: Accessory Muscle Use, Respiratory Distress - GI/Abdominal Exam GI & Abdominal Exam: Soft. absent: Tenderness - Neurological Exam Neurological Exam: Alert, Awake, Oriented x3 - Skin Additional comments: revision of R thoracotomy incision, incision clean, scant serosang drainage, mildly tender to palpation Assessment and Plan - Assessment and Plan (Free Text) Assessment: 40M w. R parapneumonic effusion/empyema, s/p VATS converted to thoracotomy, w/ decortication and wedge resection POD#27 w. revision of thoracotomy incision, POD#1 -local wound care, change dressing PRN -no further plans for surgical intervention at this time -d/w attending [facility] PGY2
--- NOTE | 2016-11-30 11:27 | CP.PCM.PN ---
<Zay Prado - Last Filed: 11/30/16 12:37> Subjective - Date & Time of Evaluation Date of Evaluation: 11/30/16 Time of Evaluation: 07:45 - Subjective Subjective: Cardiology Progress Note Dr. Lin Patient seen and examined at the bedside. No acute distress. No acute events overnight per nursing and pt. Patient is POD #27 s/p thoracotomy with Dr. Villagomez. Denies SOB today or chest pain, coughing spells resolved. Some discomfort at wound closure sites, but no sensation of burning/swelling or significant pain. The patient is resting comfortably in the bed at time of exam. Some lightheadedness when walking in the halls for extended period but otherwise no acute issues with ambulation. He denies all other complaints this morning. 12 point review of systems was completed and negative except for the above, stated complaints. Objective - Vital Signs/Intake and Output Vital Signs (last 24 hours): Temp Pulse Resp BP Pulse Ox 97.7 F 82 18 120/83 95 11/30/16 08:06 11/30/16 08:06 11/30/16 08:06 11/30/16 08:06 11/30/16 08:06 Intake and Output: 11/30/16 11/30/16 06:59 18:59 Intake Total 500 Balance 500 - Medications Medications: Current Medications Albuterol/Ipratropium (Duoneb 3 Mg/0.5 Mg (3 Ml) Ud) 3 ml INH RQ6 [facility] Last Admin: 11/30/16 07:48 Dose: 3 ml Famotidine (Pepcid) 20 mg PO DAILY [facility] Last Admin: 11/30/16 09:43 Dose: 20 mg Folic Acid (Folic Acid) 1 mg PO DAILY [facility] Last Admin: 11/30/16 09:44 Dose: 1 mg Glipizide (Glucotrol) 2.5 mg PO DAILY [facility] Last Admin: 11/30/16 09:44 Dose: 2.5 mg Guaifenesin/Dextromethorphan (Robitussin Dm) 10 ml PO Q4H PRN PRN Reason: Cough and congestion Last Admin: 11/26/16 10:00 Dose: 10 ml Heparin Sodium (Porcine) (Heparin) 5,000 units SC Q8 [facility] Last Admin: 11/30/16 05:08 Dose: 5,000 units Metronidazole (Flagyl) 500 mg in 100 mls @ 100 mls/hr IVPB Q8 [facility] Last Admin: 11/30/16 05:03 Dose: 100 mls/hr Insulin Aspart (Novolog) 0 unit SC ACHS [facility] PRN Reason: Protocol Last Admin: 11/30/16 08:00 Dose: Not Given Insulin Detemir (Levemir) 40 unit SC Q12 [facility] Last Admin: 11/30/16 09:46 Dose: 40 unit Lisinopril (Zestril) 20 mg PO DAILY [facility] Last Admin: 11/30/16 09:44 Dose: 20 mg Metoprolol Tartrate (Lopressor) 50 mg PO Q12H [facility] Last Admin: 11/30/16 09:44 Dose: 50 mg Oxycodone/Acetaminophen (Percocet 5/325 Mg Tab) 1 tab PO Q6H PRN PRN Reason: Pain, moderate (4-7) Stop: 12/03/16 08:42 Saccharomyces Boulardii (Florastor) 500 mg PO BID [facility] Last Admin: 11/30/16 09:44 Dose: 500 mg - Labs Labs: 11/29/16 07:08 11/29/16 07:08 PT 14.4 SECONDS (9.7-12.2) H 11/29/16 07:08 INR 1.3 11/29/16 07:08 APTT 35 SECONDS (21-34) H 11/29/16 07:08 - Additional Findings Additional findings: - Constitutional Appears: Well, Non-toxic, No Acute Distress, Resting in bed comfortably - Head Exam Head Exam: ATRAUMATIC, NORMAL INSPECTION, NORMOCEPHALIC - Eye Exam Eye Exam: EOMI, Normal appearance. absent: Conjunctival injection, Scleral icterus Pupil Exam: absent: Irregular, Unequal - ENT Exam ENT Exam: Mucous Membranes Moist - Neck Exam Neck Exam: Full ROM. absent: Tenderness - Respiratory Exam Respiratory Exam: Clear to Ausculation Bilaterally, Normal breath sounds, NORMAL BREATHING PATTERN, All chest tubes removed, bandaging over site of mid- back chest tube. absent: Accessory Muscle Use, Rales, Rhonchi, Wheezes, Decreased breath sounds, Chest wall tenderness - Cardiovascular Exam Cardiovascular Exam: REGULAR RHYTHM, RRR, +S1, +S2. absent: Bradycardia, Tachycardia, Systolic or Diastolic murmurs, Clicks - GI/Abdominal Exam GI & Abdominal Exam: Soft, Normal Bowel Sounds. absent: Distended, Firm, Rigid , Tenderness, Diminished Bowel Sounds, Hypoactive Bowel Sounds - Extremities Exam Extremities Exam: Full ROM, Normal Capillary Refill, Pedal Edema (+1 pitting edema bilateral LE extending up to mid moore, wearing compression stockings). absent: Tenderness, Calf Tenderness, Joint Swelling, Normal Inspection - Neurological Exam Neurological Exam: Alert, Awake, CN II-XII Intact, Oriented x3 - Psychiatric Exam Psychiatric exam: Normal Mood, Normal Affect - Skin Skin Exam: Dry, Intact (except at sites of removed chest tubes, actively healing closure at site of 2 chest tubes and bandaging at site of removed IR pigtail drain), Normal Color, Warm. Absent: No erythema/grossly edematous tissue surrounding wound closure sites, no active bleeding/oozing at wound closure sites Assessment and Plan (1) Tachycardia Assessment & Plan: 11/04/16 ELG- sinus tachycardia, physiologic axis, normal SC interval, normal QRS duration, prolonged QTc, poor R wave progression, no ST or T wave abnormalities 11/02/16 EKG- sinus tachycardia, right axis deviation, normal SC interval, normal QRS duration, prolonged QTc, nonspecific ST/T wave abnormality 11/03/15 Echo- EF 53%, normal diastolic filling pressures Troponin negative x 2 (<0.0120 x 2) CK-MB negative x 2 (1.00 > 0.63) BNP 102 (normal) -cardiac stable at this point -no further tachycardia noted on recorded vitals, patient denies any racing heartbeat -will continue to monitor -continue Lopressor 50mg PO q12 Status: Resolved (2) Bilateral lower extremity edema Assessment & Plan: -Continue Lasix 20mg IVP q12 -José hose stockings, ambulating with PT as tolerated -Encourage patient to keep legs elevated and not flat or dangling off of bed when lying down Status: Resolved (3) Pre-procedural cardiovascular examination Assessment & Plan: -Cardiac Risk Assessment- Low Risk (POD #10 s/p VATS) - Detsky Score 10: Class I - Low Risk - Jenkins Score 3: Class I - Low Risk - Tunde Score 2- Moderate Risk Status: Resolved - Assessment and Plan (Free Text) Assessment: Case discussed with Dr. Lin. <Saravanan Lin A - Last Filed: 12/01/16 07:21> Objective - Vital Signs/Intake and Output Vital Signs (last 24 hours): Temp Pulse Resp BP Pulse Ox 97.7 F 82 18 120/83 95 11/30/16 08:06 11/30/16 08:06 11/30/16 08:06 11/30/16 08:06 11/30/16 08:06 - Labs Labs: 11/29/16 07:08 11/29/16 07:08 PT 14.4 SECONDS (9.7-12.2) H 11/29/16 07:08 INR 1.3 11/29/16 07:08 APTT 35 SECONDS (21-34) H 11/29/16 07:08 Attending/Attestation - Attestation I have personally seen and examined this patient.: Yes I have fully participated in the care of the patient.: Yes I have reviewed all pertinent clinical information, including history, physical exam and plan: Yes Notes (Text): 12/01/16 07:21 chest tube out stable
--- NOTE | 2016-11-30 11:32 | CP.PCM.PN ---
Subjective - Date & Time of Evaluation Date of Evaluation: 11/30/16 Time of Evaluation: 11:31 - Subjective Subjective: pod #1 doing well. Objective - Vital Signs/Intake and Output Vital Signs (last 24 hours): Temp Pulse Resp BP Pulse Ox 97.7 F 82 18 120/83 95 11/30/16 08:06 11/30/16 08:06 11/30/16 08:06 11/30/16 08:06 11/30/16 08:06 Intake and Output: 11/30/16 11/30/16 06:59 18:59 Intake Total 500 Balance 500 - Medications Medications: Current Medications Albuterol/Ipratropium (Duoneb 3 Mg/0.5 Mg (3 Ml) Ud) 3 ml INH RQ6 [facility] Last Admin: 11/30/16 07:48 Dose: 3 ml Famotidine (Pepcid) 20 mg PO DAILY [facility] Last Admin: 11/30/16 09:43 Dose: 20 mg Folic Acid (Folic Acid) 1 mg PO DAILY [facility] Last Admin: 11/30/16 09:44 Dose: 1 mg Glipizide (Glucotrol) 2.5 mg PO DAILY [facility] Last Admin: 11/30/16 09:44 Dose: 2.5 mg Guaifenesin/Dextromethorphan (Robitussin Dm) 10 ml PO Q4H PRN PRN Reason: Cough and congestion Last Admin: 11/26/16 10:00 Dose: 10 ml Heparin Sodium (Porcine) (Heparin) 5,000 units SC Q8 [facility] Last Admin: 11/30/16 05:08 Dose: 5,000 units Metronidazole (Flagyl) 500 mg in 100 mls @ 100 mls/hr IVPB Q8 [facility] Last Admin: 11/30/16 05:03 Dose: 100 mls/hr Insulin Aspart (Novolog) 0 unit SC ACHS [facility] PRN Reason: Protocol Last Admin: 11/30/16 08:00 Dose: Not Given Insulin Detemir (Levemir) 40 unit SC Q12 [facility] Last Admin: 11/30/16 09:46 Dose: 40 unit Lisinopril (Zestril) 20 mg PO DAILY [facility] Last Admin: 11/30/16 09:44 Dose: 20 mg Metoprolol Tartrate (Lopressor) 50 mg PO Q12H [facility] Last Admin: 11/30/16 09:44 Dose: 50 mg Oxycodone/Acetaminophen (Percocet 5/325 Mg Tab) 1 tab PO Q6H PRN PRN Reason: Pain, moderate (4-7) Stop: 12/03/16 08:42 Saccharomyces Boulardii (Florastor) 500 mg PO BID [facility] Last Admin: 11/30/16 09:44 Dose: 500 mg - Labs Labs: 11/29/16 07:08 11/29/16 07:08 PT 14.4 SECONDS (9.7-12.2) H 11/29/16 07:08 INR 1.3 11/29/16 07:08 APTT 35 SECONDS (21-34) H 11/29/16 07:08
--- NOTE | 2016-11-30 14:35 | CP.PCM.DIS ---
Provider - Provider Date of Admission: 11/02/16 00:15 Attending physician: Brando Hernandez MD Primary care physician: William Beal DO Time Spent in preparation of Discharge (in minutes): 45 Diagnosis - Discharge Diagnosis (1) Dyspnea Status: Acute (2) Pleural effusion on right Status: Resolved (3) Pneumonia Status: Acute (4) Respiratory distress Status: Acute Hospital Course - Lab Results Lab Results: Micro Results 11/03/16 Unknown Lung Rll Fungal Culture - Preliminary NO FUNGUS GROWTH IN 3 WEEKS. 11/03/16 Unknown Pleural Fluid Fungal Culture - Preliminary NO FUNGUS GROWTH IN 3 WEEKS. 11/02/16 Unknown Other: Please Indicate Mycobacterial Culture - Preliminary 11/18/16 15:15 Incision Site Gram Stain - Final 11/18/16 15:15 Incision Site Wound Culture - Final No growth. 11/17/16 16:32 Pleural Fluid Gram Stain - Final 11/17/16 16:32 Pleural Fluid Body Fluid Culture - Final No growth. 11/13/16 21:10 Pleural Fluid Gram Stain - Final 11/13/16 21:10 Pleural Fluid Body Fluid Culture - Final No growth. 11/07/16 20:00 Blood-Venous Blood Culture - Final NO GROWTH AFTER 5 DAYS 11/07/16 20:00 Blood-Venous Gram Stain - Final TEST NOT PERFORMED 11/07/16 19:30 Blood-Venous Blood Culture - Final NO GROWTH AFTER 5 DAYS 11/07/16 19:30 Blood-Venous Gram Stain - Final TEST NOT PERFORMED 11/03/16 Unknown Lung Gram Stain - Final 11/03/16 Unknown Lung Tissue Culture - Final Coagulase Neg Staphylococcus 11/02/16 Unknown Pleural Fluid Gram Stain - Final 11/02/16 Unknown Pleural Fluid Anaerobic Culture - Final NO ANAEROBES ISOLATED. 11/02/16 Unknown Pleural Fluid Body Fluid Culture - Final Corynebacterium Species 11/03/16 Unknown Other: Please Indicate Anaerobic Culture - Final NO ANAEROBES ISOLATED. 11/03/16 Unknown Pleural Fluid Gram Stain - Final 11/02/16 02:31 Nose MRSA Culture (Admit) - Final MRSA NOT DETECTED Most Recent Lab Values WBC 5.0 K/uL (4.8-10.8) 11/29/16 07:08 RBC 3.47 Mil/uL (4.40-5.90) L 11/29/16 07:08 Hgb 9.4 g/dL (12.0-18.0) L 11/29/16 07:08 Hct 28.7 % (35.0-51.0) L 11/29/16 07:08 MCV 82.7 fL (80.0-94.0) 11/29/16 07:08 MCH 27.0 pg (27.0-31.0) 11/29/16 07:08 MCHC 32.7 g/dL (33.0-37.0) L 11/29/16 07:08 RDW 16.8 % (11.5-14.5) H 11/29/16 07:08 Plt Count 231 K/uL (130-400) 11/29/16 07:08 MPV 9.0 fL (7.2-11.7) 11/29/16 07:08 Neut % (Auto) 44.5 % (50.0-75.0) L 11/29/16 07:08 Lymph % (Auto) 40.5 % (20.0-40.0) H 11/29/16 07:08 Mccracken % (Auto) 11.8 % (0.0-10.0) H 11/29/16 07:08 Eos % (Auto) 2.9 % (0.0-4.0) 11/29/16 07:08 Baso % (Auto) 0.3 % (0.0-2.0) 11/29/16 07:08 Neut # 2.2 K/uL (1.8-7.0) 11/29/16 07:08 Lymph # 2.0 K/uL (1.0-4.3) 11/29/16 07:08 Mccracken # 0.6 K/uL (0.0-0.8) 11/29/16 07:08 Eos # 0.1 K/uL (0.0-0.7) 11/29/16 07:08 Baso # 0.0 K/uL (0.0-0.2) 11/29/16 07:08 Neutrophils % (Manual) 79 % (50-75) H 11/03/16 17:05 Band Neutrophils % 5 % (0-2) H 11/03/16 17:05 Lymphocytes % (Manual) 7 % (20-40) L 11/03/16 17:05 Monocytes % (Manual) 9 % (0-10) 11/03/16 17:05 Differential Comment 11/05/16 07:56 Hypersegmented Polys Present 11/03/16 17:05 Smudge Cells Present 11/03/16 17:05 Platelet Estimate Normal (NORMAL) 11/03/16 17:05 Large Platelets Present 11/03/16 17:05 Polychromasia Slight 11/03/16 17:05 Poikilocytosis (manual Slight 11/03/16 17:05 Anisocytosis (manual) Slight 11/03/16 17:05 Microcytosis (manual) Slight 11/03/16 17:05 ESR 139 mm/hr (0-15) H 11/11/16 07:10 Retic Count 2.7 % (0.5-1.5) H 11/09/16 07:08 PT 14.4 SECONDS (9.7-12.2) H 11/29/16 07:08 INR 1.3 11/29/16 07:08 APTT 35 SECONDS (21-34) H 11/29/16 07:08 Puncture Site Rr 11/02/16 00:55 pCO2 26 mm/Hg (35-45) L 11/02/16 00:55 pO2 442 mm/Hg (80-100) H 11/02/16 00:55 HCO3 23.9 mmol/L (21-28) 11/02/16 00:55 ABG pH 7.51 (7.35-7.45) H 11/02/16 00:55 ABG Total CO2 21.5 mmol/L (22-28) L 11/02/16 00:55 ABG O2 Saturation 99.6 % (95-98) H 11/02/16 00:55 ABG Base Excess -1.3 mmol/L (-2.0-3.0) 11/02/16 00:55 ABG Hemoglobin 10.7 g/dL (11.7-17.4) L 11/02/16 00:55 ABG Carboxyhemoglobin 1.5 % (0.5-1.5) 11/02/16 00:55 POC ABG HHb (Measured) 0.4 % (0.0-5.0) 11/02/16 00:55 ABG Methemoglobin 0.7 % (0.0-3.0) 11/02/16 00:55 Hayden Test Pos 11/02/16 00:55 A-a O2 Difference 239.0 mm/Hg 11/02/16 00:55 Respiratory Index 0.5 11/02/16 00:55 Hgb O2 Saturation 97.4 % (95.0-98.0) 11/02/16 00:55 FiO2 100.0 % 11/02/16 00:55 Inspiratory BiPAP 12 11/02/16 00:55 Expiratory BiPAP 6 11/02/16 00:55 Sodium 135 mmol/L (132-148) 11/29/16 07:08 Potassium 3.7 mmol/L (3.6-5.2) 11/29/16 07:08 Chloride 97 mmol/L (98-107) L 11/29/16 07:08 Carbon Dioxide 28 mmol/L (22-30) 11/29/16 07:08 Anion Gap 14 (10-20) 11/29/16 07:08 BUN 13 mg/dL (9-20) 11/29/16 07:08 Creatinine 0.6 MG/DL (0.8-1.5) L 11/29/16 07:08 Est GFR ( Amer) > 60 11/29/16 07:08 Est GFR (Non-Af Amer) > 60 11/29/16 07:08 POC Glucose (mg/dL) 262 mg/dL (65-110) H 11/30/16 11:06 Random Glucose 72 mg/dL (75-110) L 11/29/16 07:08 Hemoglobin A1c 8.9 % (4.2-6.5) H D 11/05/16 07:56 Serum Osmolality 280 mosm/kg (272-300) 11/06/16 14:04 Calcium 8.3 mg/dl (8.6-10.4) L 11/29/16 07:08 Phosphorus 4.0 mg/dL (2.5-4.5) 11/08/16 06:29 Magnesium 1.7 mg/dL (1.6-2.3) 11/08/16 06:29 Iron 36 ug/dL (49-181) L 11/04/16 06:26 TIBC 156 ug/dL (250-450) L 11/04/16 06:26 % Saturation 23 (20-55) 11/04/16 06:26 Ferritin 1260.0 ng/mL 11/09/16 07:08 Total Bilirubin 0.7 mg/dL (0.2-1.3) 11/26/16 07:10 AST 21 U/L (17-59) 11/26/16 07:10 ALT < 6 U/L (21-72) L D 11/26/16 07:10 Alkaline Phosphatase 62 U/L (38-126) 11/26/16 07:10 Lactate Dehydrogenase 419 U/L (313-618) 11/09/16 07:08 Total Creatine Kinase 61 U/L (55-170) 11/02/16 11:59 CK-MB (Mass) 0.63 ng/mL (0.0-3.38) 11/02/16 11:59 Troponin I, Quant < 0.0120 ng/mL (0.00-0.120) 11/02/16 11:59 C-React Prot High Sens > 15.00 mg/L (1.00-3.00) H 11/11/16 07:10 NT-Pro-B Natriuret Pep 102 pg/mL (0-450) 11/01/16 21:38 Total Protein 7.4 g/dL (6.3-8.3) 11/26/16 07:10 Albumin 3.1 g/dL (3.5-5.0) L 11/26/16 07:10 Globulin 4.2 gm/dL (2.2-3.9) H 11/26/16 07:10 Albumin/Globulin Ratio 0.7 (1.0-2.1) L 11/26/16 07:10 Vitamin B12 641 pg/mL (239-931) 11/09/16 07:08 Folate 13.6 ng/mL 11/04/16 06:26 Urine Osmolality 424 mosm/kg (300-1000) 11/06/16 19:03 Ur Random Creatinine 55.5 mg/dL 11/05/16 14:00 Ur Random Sodium < 5 mmol/L 11/05/16 14:00 Ur Random Uric Acid 50.6 mg/dL 11/06/16 19:03 Urine Chloride 38 mmol/L (32-290) 11/06/16 19:03 Fluid Source Pleural 11/07/16 15:58 Fluid Appearance Bloody (CLEAR) 11/07/16 15:58 Fluid pH 6.0 11/03/16 15:06 Fluid WBC 989712.0 /mm3 (0.0-300.0) H 11/07/16 15:58 Fluid RBC 56684.0 /mm3 (0.0-0.0) H 11/07/16 15:58 Fluid Tot Cell Count 100 (0-0) H 11/07/16 15:58 Fluid Neutrophils 92.0 % (0-0) H 11/07/16 15:58 Fluid Lymphocytes 5.0 % (0-0) H 11/07/16 15:58 Fld Monocyte/Macrophag 3 % (0-0) H 11/07/16 15:58 Fluid Albumin 1.1 g/dL 11/03/16 15:06 Fluid Comment 11/07/16 15:58 IgG, Serum (MS) 127.2 mg/dL (4-86) H 11/11/16 07:10 Pleural Total Protein 3.9 g/dL 11/03/16 15:06 Pleural LDH 84 U/L 11/03/16 15:06 Pleural Glucose 89 mg/dL 11/03/16 15:06 Pleural Amylase <10 U/L 11/03/16 15:06 Stool Occult Blood Negative (NEGATIVE) 11/02/16 21:35 Stool Leukocytes, Qual Negative (NEGATIVE) 11/12/16 08:00 Vancomycin Trough < 5.0 ug/mL (5.0-10.0) L 11/03/16 06:32 Serum Ketones Small (NEGATIVE) 11/01/16 21:38 IgG 2148 mg/dL (694-1618) H 11/11/16 07:10 IgA 559 mg/dL (81-463) H 11/11/16 07:10 IgM 52 mg/dL (48-271) 11/11/16 07:10 IgE 68 kU/L (<uk=105) 11/11/16 07:10 Serum Immunofixation See note 11/11/16 07:10 Rheum Arthritis Panel Negative (NEGATIVE) 11/02/16 10:30 TOMI 6 Profile Negative (NEGATIVE) 11/02/16 10:30 Complement C3 146.0 mg/dL (88.0-165.0) 11/11/16 07:10 Complement C4 34.0 mg/dL (14.0-44.0) 11/11/16 07:10 Tot Complement (CH50) >60 U/mL (31-60) H 11/11/16 07:10 Absolute Lymphs (Flow) 983 Cells/mcL (850-3900) 11/11/16 07:10 % CD4 Cells 40 Percent (30-61) 11/11/16 07:10 Absolute CD4 Count 393 Cells/mcL (490-1740) L 11/11/16 07:10 T-Help/Suppress Ratio 0.93 Ratio (0.86-5.00) 11/11/16 07:10 % CD8 Cells 43 Percent (12-42) H 11/11/16 07:10 Absolute CD8 Count 424 Cells/mcL (180-1170) 11/11/16 07:10 C. pneumoniae IgG Ab 1:64 (<1:64) H 11/03/16 07:16 C. pneumoniae IgA Ab <1:16 (<1:16) 11/03/16 07:16 C. pneumoniae IgM Ab <1:10 (<1:10) 11/03/16 07:16 C. pneumoniae Ab Interp see note 11/03/16 07:16 C. trachomatis IgG Ab <1:64 (<1:64) 11/03/16 07:16 C. trachomatis IgA Ab <1:16 (<1:16) 11/03/16 07:16 C. trachomatis IgM Ab <1:10 (<1:10) 11/03/16 07:16 C.trachomatis Ab Interp see note 11/03/16 07:16 C. psittaci IgG Ab <1:64 (<1:64) 11/03/16 07:16 C. psittaci IgA Ab <1:16 (<1:16) 11/03/16 07:16 C. psittaci IgM Ab <1:10 (<1:10) 11/03/16 07:16 C. psittaci Ab Interp see note 11/03/16 07:16 C. difficile Ag & Toxin Negative (NEGATIVE) 11/25/16 17:00 Hep Bs Antigen Negative (NEGATIVE) 11/04/16 06:26 Hep B Core IgM Ab Negative (NEGATIVE) 11/04/16 06:26 Hepatitis C Antibody Negative (NEGATIVE) 11/04/16 06:26 HIV 1&2 Antibody Screen Negative (NEGATIVE) 11/04/16 06:26 H.influenzae Type B Ag Not required (NEGATIVE) 11/02/16 06:00 Ur L.pneumophila Ag Negative (NEGATIVE) 11/03/16 08:49 Mycoplasma pneumon IgM Negative (NEGATIVE) 11/04/16 06:26 N.meningitidis ACY/W135 Not required (NEGATIVE) 11/02/16 06:00 N.meningi B/E.coli K1 Ag Not required (NEGATIVE) 11/02/16 06:00 Group B Strep Antigen Not required (NEGATIVE) 11/02/16 06:00 S. pneumoniae Antigen Negative (NEGATIVE) 11/02/16 06:00 TB Test (QFT) Nil 0.04 IU/mL 11/03/16 07:16 TB Test Mitogen - Nil 0.27 IU/mL 11/03/16 07:16 TB Test TB - Nil 0.00 IU/mL 11/03/16 07:16 TB Test (QFT) Indeterminate (Negative) H 11/03/16 07:16 Blood Type O POSITIVE 11/19/16 00:02 Antibody Screen Negative 11/19/16 00:02 - Hospital Course Hospital Course: History present illness: 40-year-old male with history of hypertension, diabetes, hypercholesteremia came to the emergency room with shortness of breath. Recently patient was hospitalized 10 days ago, at that time patient was treated as pneumonia. After the discharge patient continues to have a symptoms of right-sided pleuritic chest pain. And his blood sugar was very uncontrolled. Symptoms gradually got worse, and the PMD sent the patient to see a financial services professional. After that she was told to go to the emergency room because of the worsening lung condition. Upon coming to the emergency room. He was having severe shortness of breath, was also having some fever, chills. He was also having sweating. Tachypnea noted, he was immediately placed on BiPAP, after that he felt better. Coughing noted, but the pain pleuritic in nature on the right chest noted. During the hospitalization initially patient was admitted to the intensive care unit. Thoracic surgery consultation was called. Patient was started on IV antibiotic. Infectious disease evaluation was also called. Meanwhile patient agreed to have the surgical intervention. He underwent the right side, thoracotomy, and is video-assisted thoracoscopy, pleural biopsy, evacuation of the empyema. Patient also had a chest tube placement. Initial evaluation of the fluid and microbiological evidential showing severe complicated parapneumonic effusion bpm, pedal. One of the body fluid showing evidence of staphylococcal infection, coagulase- negative. Patient also had evidence of severe diabetes, uncontrolled. It Patient continued to have chest tube placement, and was draining significant amount of fluid. Initially patient had a significant problem including oxygenation, he was placed on BiPAP. Symptoms slowly improved. After at least to 3 weeks into the chest tube placement. Patient developed again loculation, and he needed interventional radiology evaluation and also pigtail catheter placement in one of the loculated fluid in the right lung. After the pigtail catheter patient ate a significant amount of fluid, and the patient started improving markedly. Finally, all the chest he but remote. He developed a wound infection of the surgical site of the right side of the chest wall. Which was debrided, cleaned, and the sutures were done, now doing well. Meanwhile patient also developed a C. difficile colitis, with the diarrhea, he did with vancomycin and Flagyl. Currently patient is doing much better, his condition is improving. He does not have any diarrhea, clinical examination is normal today. Is feeling much better. He is able tablet. He has a right side PICC line catheter Patient will be discharged to the rehabitation Center. He will continue receiving physical therapy. He will continue the IV antibiotic for 2 more weeks. 2 more weeks of vancomycin and Flagyl advised. Probiotic advised. Glucose control needed. Blood pressure control. Medications reviewed. Spoke to the patient in details. He will follow up as an outpatient with infectious disease and also he will need to continue physical therapy also. He will also need to be having a repeated CT of the chest in 2 weeks to evaluate the prognosis. Discharge Exam - Head Exam Head Exam: ATRAUMATIC, NORMOCEPHALIC Discharge Plan - Discharge Medications Prescriptions: metroNIDAZOLE [Flagyl] 250 mg PO TID #21 tab Ertapenem [Invanz] 1 gm IJ ONCE #14 pds - Follow Up Plan Condition: GUARDED Disposition: HOME/ ROUTINE Referrals: William Beal DO [Primary Care Provider] -
--- NOTE | 2016-12-07 20:57 | OP ---
PROCEDURE DATE: 11/29/2016 PREOPERATIVE DIAGNOSIS: Nonhealing thoracotomy incision. POSTOPERATIVE DIAGNOSIS: Nonhealing thoracotomy incision. OPERATION PERFORMED: 1. Excision of the thoracotomy incision. 2. Debridement and closure of the thoracotomy wound. ANESTHESIA: Intravenous sedation plus local. SURGEON: Francis Villagomez M.D. PAPER TUBE MACHINE OPERATOR: Alyson INDICATION FOR SURGERY: The patient underwent a thoracotomy for decortication and drainage for empyema. Postop, the wound became infected after debridement at the bedside, wound was packed daily. The patient today was taken to operating room for closure of the wound. OPERATIVE PROCEDURE: The patient was taken to the operating room where he was placed in a supine position with the right side elevated 45 degrees and then operative field was prepared and draped in a sterile fashion. Under satisfactory 0.5 % lidocaine and IV sedation, using an elliptical incision with a 7 mm margins, scar tissue was removed including underlying subcutaneous tissue. Next, the wound was irrigated with normal saline using a pulse keypunch operators supervisor(3L). After satisfactory hemostasis, the wound was approximated with through and through vertical mattress sutures of 2-0 Nurolon which were placed at a 1.5 cm intervals. Skin between the vertical mattress sutures were approximated with skin staplers. Sterile dressings were applied and taped in the usual manner. The patient tolerated the procedure very well and was transferred to the recovery room awake with good vital signs. ESTIMATED BLOOD LOSS: 50 cm. COUNTS: Sponge, needle and instrument counts were correct. Francis Villagomez MD cc: [id number] TT: 12/07/2016 20:57:32 sn MTDD
== END 2016-11-30 15:30 | DRG 163 ==
LOC: C.ER 20:44 → SUPCPDRO 20:44 → C.9E 11-02 00:15 → C.9I 11-02 01:19 → C.6T 11-08 07:15
PROVIDERS: ADMIT Internal Medicine; ATTEND Internal Medicine
PROC: 5A09457 Assistance with Respiratory Ventilation, 24-96 Consecutive Hours, Continuous Positive Airway Pressure (ICD-10-PCS; 2016-11-02)
PROC: 0BBN0ZZ Excision of Right Pleura, Open Approach (ICD-10-PCS; 2016-11-03)
PROC: 30233N1 Transfusion of Nonautologous Red Blood Cells into Peripheral Vein, Percutaneous Approach (ICD-10-PCS; 2016-11-03)
PROC: 0W9900Z Drainage of Right Pleural Cavity with Drainage Device, Open Approach (ICD-10-PCS; 2016-11-03)
PROC: 0BBF0ZZ Excision of Right Lower Lung Lobe, Open Approach (ICD-10-PCS; principal; 2016-11-03 11:15)
PROC: 02HV33Z Insertion of Infusion Device into Superior Vena Cava, Percutaneous Approach (ICD-10-PCS; 2016-11-14)
PROC: 0W9900Z Drainage of Right Pleural Cavity with Drainage Device, Open Approach (ICD-10-PCS; 2016-11-17)
PROC: 0W9800Z Drainage of Chest Wall with Drainage Device, Open Approach (ICD-10-PCS; 2016-11-18)
PROC: 0HD5XZZ Extraction of Chest Skin, External Approach (ICD-10-PCS; 2016-11-29)
PROC: 0HQ5XZZ Repair Chest Skin, External Approach (ICD-10-PCS; 2016-11-29)
DX: J11.00 Influenza due to unidentified influenza virus with unspecified type of pneumonia (principal); J86.9 Pyothorax without fistula; A04.7 Enterocolitis due to Clostridium difficile; J90 Pleural effusion, not elsewhere classified; E87.1 Hypo-osmolality and hyponatremia; J98.11 Atelectasis; T81.4XXA Infection following a procedure, initial encounter; L02.213 Cutaneous abscess of chest wall; E11.65 Type 2 diabetes mellitus with hyperglycemia; I10 Essential (primary) hypertension; D63.8 Anemia in other chronic diseases classified elsewhere; J45.909 Unspecified asthma, uncomplicated; E78.00 Pure hypercholesterolemia, unspecified; Z79.4 Long term (current) use of insulin; E66.9 Obesity, unspecified; Z87.891 Personal history of nicotine dependence; R00.0 Tachycardia, unspecified; R60.0 Localized edema; Z53.32 Thoracoscopic surgical procedure converted to open procedure; Y83.8 Other surgical procedures as the cause of abnormal reaction of the patient, or of later complication, without mention of misadventure at the time of the procedure

== ENCOUNTER 2016-12-08 12:17 | Emergency (ER) | payer BC ==
[2016-12-08 12:22] VITALS: BMI 30.9
[2016-12-08 12:23] VITALS: TEMP 97.9
--- NOTE | 2016-12-08 13:48 | C.PDOC ---
History Of Present Illness 41 y/o male presents to ED for evaluation of right chest wound. Patient had previously been admitted to [facility] for staph pneumonia and Empyema that had to be drained in OR, was discharged to rehab facility, with antibiotics and instructions to follow up. Patient was sent to ED for wound evaluation and removal of mehnaz . Patient denies fever, respiratory distress or any other complaints at this time. Time Seen by Provider: 12/08/16 12:43 Chief Complaint (Nursing): Wound Check History Per: Patient History/Exam Limitations: no limitations Onset/Duration Of Symptoms: Days Ago Current Symptoms Are (Timing): Still Present Past Medical History Reviewed: Historical Data, Nursing Documentation, Vital Signs Vital Signs: Last Vital Signs Temp 97.9 F 12/08/16 12:22 Pulse 84 12/08/16 12:22 Resp 18 12/08/16 12:22 BP 155/89 H 12/08/16 12:22 Pulse Ox 99 12/08/16 14:10 - Medical History PMH: Asthma, HTN, Pneumonia - [facility] Procedures ASSISTANCE WITH RESPIRATORY VENTILATION, 24-96 HRS, CPAP (11/02/16) DRAINAGE OF CHEST WALL WITH DRAINAGE DEVICE, OPEN APPROACH (11/02/16) DRAINAGE OF R PLEURAL CAV WITH DRAIN DEV, OPEN APPROACH (11/02/16) EXCISION OF RIGHT LOWER LUNG LOBE, OPEN APPROACH (11/02/16) EXCISION OF RIGHT PLEURA, OPEN APPROACH (11/02/16) EXTRACTION OF CHEST SKIN, EXTERNAL APPROACH (11/02/16) INSERTION OF INFUSION DEV INTO SUP VENA CAVA, PERC APPROACH (11/02/16) REPAIR CHEST SKIN, EXTERNAL APPROACH (11/02/16) TRANSFUSE NONAUT RED BLOOD CELLS IN PERIPH VEIN, PERC (11/02/16) Family History: States: Unknown Family Hx - Social History Hx Tobacco Use: No Hx Alcohol Use: No Hx Substance Use: No - Immunization History Hx Tetanus Toxoid Vaccination: No Hx Influenza Vaccination: Yes Hx Pneumococcal Vaccination: Yes Review Of Systems Except As Marked, All Systems Reviewed And Found Negative. Constitutional: Negative for: Fever, Chills Respiratory: Negative for: Cough, Shortness of Breath Gastrointestinal: Negative for: Nausea, Vomiting, Diarrhea Neurological: Negative for: Weakness, Dizziness Physical Exam - Physical Exam Appears: No Acute Distress Skin: Normal Color, Warm Head: Atraumatic, Normacephalic Chest: Other (12cm semi-circular incision at mid axillary line to mid chest healing well w/mehnaz, 2 small incisions below healing well) Cardiovascular: Rhythm Regular Respiratory: Normal Breath Sounds, No Rales, No Rhonchi, No Wheezing Gastrointestinal/Abdominal: Soft, Other (Obese abdomen) Extremity: Normal ROM Neurological/Psych: Oriented x3, Normal Speech ED Course And Treatment O2 Sat by Pulse Oximetry: 99 (RA) Pulse Ox Interpretation: Normal Medical Decision Making Medical Decision Making: at bedside evaluated patient and agreed for stitches and sutures to be removed and be D/C home with advised follow up. Disposition Discussed With : Brando Hernandez Counseled Patient/Family Regarding: Studies Performed, Diagnosis - Disposition Referrals: Brando Hernandez MD [Staff Provider] - Disposition: OTHER INSTITUTION Disposition Time: 14:06 Condition: STABLE Instructions: Acute Wound Care (ED), Steristrips (ED) Forms: General Discharge Instructions - POA Present On Arrival: None - Clinical Impression Clinical Impression: Encounter for postoperative wound care - PA / PEDIGREE TRACER / Resident Statement MD/DO has reviewed & agrees with the documentation as recorded. MD/ has examined the patient and agrees with the treatment plan. - Scribe Statement The provider has reviewed the documentation as recorded by the Payam Kerr All medical record entries made by the Payam were at my direction and personally dictated by me. I have reviewed the chart and agree that the record accurately reflects my personal performance of the history, physical exam, medical decision making, and the department course for this patient. I have also personally directed, reviewed, and agree with the discharge instructions and disposition.
[2016-12-08] MEDS ORDERED: Benzoin Compound Tincture (60 ml) ONE (13:59)
[2016-12-08 14:58] VITALS: BP 143/95; PULSE 77; RESP 16; O2SAT 100
--- NOTE | 2016-12-08 15:30 | RAD ---
HISTORY: s/p surgery, empyema COMPARISON: Chest x-ray performed 11/28/16 TECHNIQUE: Chest PA and lateral FINDINGS: Right-sided PICC terminates at the expected location of the SVC. LUNGS: Small right pleural effusion and or atelectasis/ pneumonia. No definite pneumothorax. Please note that chest x-ray has limited sensitivity for the detection of pulmonary masses. CARDIOVASCULAR: Heart size appears within normal limits. OSSEOUS STRUCTURES: No acute osseous abnormality identified. VISUALIZED UPPER ABDOMEN: Elevation of the right hemidiaphragm. OTHER FINDINGS: None. IMPRESSION: Small right pleural effusion and or atelectasis/ pneumonia.
== END 2016-12-08 14:32 | disposition home or self-care (01) ==
LOC: C.ER 12:17
DX: Z48.02 Encounter for removal of sutures (principal)

== ENCOUNTER 2018-02-01 07:17 | Inpatient (IN) | payer BC ==
[2018-02-01 07:17] VITALS: BMI 31.7
--- NOTE | 2018-02-01 08:04 | C.PDOC ---
History Of Present Illness 42 y/o male with dm and asthma presents to ED with pain, redness and abscess to left lower abdomen; started as small pimple that he popped on Sat, and has worsened since. denies fevers. +drainage from area. pt reports blood sugar have been high lately. Time Seen by Provider: 02/01/18 07:34 Chief Complaint (Nursing): Abnormal Skin Integrity History Per: Patient History/Exam Limitations: no limitations Onset/Duration Of Symptoms: Days (6) Current Symptoms Are (Timing): Worse Location Of Injury: Left: Abdomen Quality Of Symptoms: Painful, Swollen, Draining Severity: Moderate Past Medical History Reviewed: Historical Data, Nursing Documentation, Vital Signs Vital Signs: Last Vital Signs Temp 98.2 F 02/01/18 07:28 Pulse 89 02/01/18 07:28 Resp 18 02/01/18 07:28 BP 153/96 H 02/01/18 07:28 Pulse Ox 99 02/01/18 08:09 - Medical History PMH: Asthma, Diabetes, HTN, Pneumonia Denies: Chronic Kidney Disease - [facility] Procedures ASSISTANCE WITH RESPIRATORY VENTILATION, 24-96 HRS, CPAP (11/02/16) DRAINAGE OF CHEST WALL WITH DRAINAGE DEVICE, OPEN APPROACH (11/02/16) DRAINAGE OF R PLEURAL CAV WITH DRAIN DEV, OPEN APPROACH (11/02/16) EXCISION OF RIGHT LOWER LUNG LOBE, OPEN APPROACH (11/02/16) EXCISION OF RIGHT PLEURA, OPEN APPROACH (11/02/16) EXTRACTION OF CHEST SKIN, EXTERNAL APPROACH (11/02/16) INSERTION OF INFUSION DEV INTO SUP VENA CAVA, PERC APPROACH (11/02/16) REPAIR CHEST SKIN, EXTERNAL APPROACH (11/02/16) TRANSFUSE NONAUT RED BLOOD CELLS IN PERIPH VEIN, PERC (11/02/16) Family History: States: Unknown Family Hx - Social History Hx Tobacco Use: No Hx Alcohol Use: No Hx Substance Use: No - Immunization History Hx Tetanus Toxoid Vaccination: No Hx Influenza Vaccination: Yes Hx Pneumococcal Vaccination: Yes Review Of Systems Constitutional: Negative for: Fever, Chills Respiratory: Negative for: Cough, Shortness of Breath Skin: Positive for: Lesions (abscess and erythma to left lower abdomen) Neurological: Negative for: Weakness, Numbness Physical Exam - Physical Exam Appears: Non-toxic, No Acute Distress Skin: Warm, Dry, Other (oviod 12 cm wide x 8 cm tall area of indurated tender erythematous skin to left lower abdomen with 3 cm abscess in center, not flucutuant. scant drainage. ) Respiratory: No Decreased Breath Sounds, No Rales, No Rhonchi, No Wheezing Gastrointestinal/Abdominal: Soft, Tenderness (left lower quad tender at sight of cellulitis) Extremity: No Pedal Edema ED Course And Treatment - Laboratory Results Result Diagrams: 02/01/18 08:05 02/01/18 08:05 O2 Sat by Pulse Oximetry: 99 Medical Decision Making Medical Decision Makin male with dm and cellulitis/abscess to left lower abdomen. bc, lkabs, antiboitcs [address] Hernandez, will admot Disposition Discussed With .: Brando Hernandez Doctor Will See Patient In The: Hospital - Disposition Disposition: HOSPITALIZED Disposition Time: 08:29 Condition: GOOD Forms: [facility] ([place]) - Clinical Impression Clinical Impression: Cellulitis of left abdominal wall, Abscess of abdominal wall, Uncontrolled diabetes mellitus
[2018-02-01 08:09] LABS: BASO % 0.2 % (0.0-2.0); EOS # 0.1 K/uL (0.0-0.7); EOS % 1.3 % (0.0-4.0); HEMOGLOBIN 13.9 g/dL (12.0-18.0); LYMPH # 1.8 K/uL (1.0-4.3); LYMPH % 24.6 % (20.0-40.0); MEAN CELL VOLUME 84.4 fL (80.0-94.0); MEAN CORPUSCULAR HEMOGLOBIN 29.4 pg (27.0-31.0); MEAN CORPUSCULAR HGB CONC 34.8 g/dL (33.0-37.0); MEAN PLATELET VOLUME 10.3 fL (7.2-11.7); MONO # 0.6 K/uL (0.0-0.8); MONO % 8.6 % (0.0-10.0); NEUT # 4.9 K/uL (1.8-7.0); NEUT % 65.3 % (50.0-75.0); RBC 4.73 Mil/uL (4.40-5.90); RED CELL DISTRIBUTION WIDTH 12.7 % (11.5-14.5); WHITE BLOOD COUNT 7.5 K/uL (4.8-10.8)
[2018-02-01 08:23] LABS: ALB/GLOB RATIO 1.3 (1.0-2.1); ALBUMIN 4.3 g/dL (3.5-5.0); ALT/SGPT 24 U/L (21-72); AST/SGOT 18 U/L (17-59); BLOOD UREA NITROGEN 17 mg/dL (9-20); CALCIUM 9.6 mg/dl (8.6-10.4); GFR NON-AFRICAN AMERICAN > 60
[2018-02-01] MEDS ORDERED: Piperacillin/Tazobact 3.375 gm 100 ML IVPB STA (08:26)
[2018-02-01] MEDS ORDERED: (Novolin 70/30) NPH/Regular 70/30 Units/ml 10 ml vial SC STA (08:27)
[2018-02-01] MEDS ORDERED: (Novolin R) Insulin Human Regular 100 units/ml vial SC ONE (09:05)
[2018-02-01] MEDS: Sodium Chloride 0.9% 1,000 ML IV SCH ×2 (09:10→17:47)
[2018-02-01] MEDS ORDERED: (Novolin R) Insulin Human Regular 100 units/ml vial ONE (09:11)
[2018-02-01] MEDS ORDERED: Sodium Chloride 0.9% 1,000 ML ONE (09:11)
[2018-02-01] MEDS: Piperacillin/Tazobact 3.375 GM in Sodium Chloride 100 ML IVPB SCH ×3 (09:12→20:08)
[2018-02-01] MEDS: Vancomycin 1 gm/NS 200 ml 1 GM/200 ML BAG IVPB STA ×2 (09:12→11:00)
--- NOTE | 2018-02-01 10:49 | CP.PCM.PN ---
Subjective - Date & Time of Evaluation Date of Evaluation: 02/01/18 Time of Evaluation: 10:49 - Subjective Subjective: for I&D in OR today Objective - Vital Signs/Intake and Output Vital Signs (last 24 hours): Temp Pulse Resp BP Pulse Ox 97.9 F 88 20 113/74 97 02/01/18 10:37 02/01/18 10:37 02/01/18 10:37 02/01/18 10:37 02/01/18 10:37 - Medications Medications: Current Medications Amlodipine Besylate (Norvasc) 5 mg PO DAILY [facility] Folic Acid (Folic Acid) 1 mg PO DAILY [facility] Sodium Chloride (Sodium Chloride 0.9%) 1,000 mls @ 100 mls/hr IV .Q10H [facility] Last Admin: 02/01/18 09:10 Dose: 100 mls/hr Vancomycin HCl 1 gm/ Sodium (Chloride) 250 mls @ 166.7 mls/hr IVPB Q12H [facility] PRN Reason: Protocol Piperacillin Sod/Tazobactam (Sod 3.375 gm/ Sodium Chloride) 100 mls @ 200 mls/ hr IVPB Q6H [facility] PRN Reason: Protocol Last Admin: 02/01/18 09:12 Dose: 200 mls/hr Insulin Human Regular (Novolin R) 0 unit SC ACHS [facility] PRN Reason: Protocol Lactobacillus Acidophilus (Bacid Acidophilus) 1 cap PO BID [facility] Lisinopril (Zestril) 20 mg PO DAILY [facility] Metformin HCl (Glucophage) 1,000 mg PO BID [facility] Metoprolol Tartrate (Lopressor) 25 mg PO BID [facility] - Labs Labs: 02/01/18 08:05 02/01/18 08:05
[2018-02-01] MEDS: Lactobacillus Acidophilus 500 MU Cap PO SCH ×2 (10:53→17:42)
[2018-02-01] MEDS ORDERED: Propofol 10 mg/ml Inj (20 ML) ONE ×2 (11:15→12:00)
[2018-02-01] MEDS ORDERED: Midazolam 2 MG/2 ML VIAL ONE (11:15)
[2018-02-01] MEDS ORDERED: Lactated Ringer's 1,000 ML IV ONE ×3 (11:40→12:51)
[2018-02-01] MEDS: (Novolin R) Insulin Human Regular 100 units/ml vial SC SCH ×4 (12:11→22:20)
[2018-02-01] MEDS ORDERED: Lactated Ringer's 1,000 ML IV SCH (12:30)
--- NOTE | 2018-02-01 12:30 | PCM.SURG1 ---
Surgeon's Initial Post Op Note - Surgeon's Notes Surgeon: Dr. Sanders Pit Steward: Iggy Martinez PGY1 Type of Anesthesia: General LMA Pre-Operative Diagnosis: Left Abdominal wall abscess Operative Findings: see operative dictation note Post-Operative Diagnosis: same Operation Performed: Incision and Drainage of Left Abdominal Wall Abscess, Debridement of skin, subcutaneous tissue, and muscle wall Specimen/Specimens Removed: Skin, subcutaneous tissue and muscle wall, purulent fluid Estimated Blood Loss: EBL {In ML}: 10 Blood Products Given: N/A Drains Used: No Drains Post-Op Condition: Good Date of Surgery/Procedure: 02/01/18 Time of Surgery/Procedure: 12:31
[2018-02-01] MEDS ORDERED: Oxycodone/Acetaminophen 5/325 mg Tab PO PRN (12:33)
--- NOTE | 2018-02-01 16:24 | CP.PCM.CON ---
History of Present Illness - History of Present Illness History of Present Illness: INFECTIOUS DISEASE CONSULTATION DICTATED 02/01/2018 CHART REVIEWED PT EXAMINED CASE DISCUSSED SEE FULL DICATATED NOTES AND ORDERS WRITTEN AND /OR CONTINUED. MARIA DIAZ MD, FACP Past Patient History - Infectious Disease Hx of Infectious Diseases: None - Tetanus Immunizations Tetanus Immunization: Unknown - Past Medical History & Family History Past Medical History?: Yes - Past Social History Smoking Status: Never Smoked - CARDIAC Hx Hypertension: Yes - PULMONARY Hx Asthma: Yes Hx Pneumonia: Yes - NEUROLOGICAL Hx Neurological Disorder: No - HEENT Other/Comment: uses bifocal eye glasses - RENAL Hx Chronic Kidney Disease: No - ENDOCRINE/METABOLIC Hx Diabetes Mellitus Type 2: Yes - HEMATOLOGICAL/ONCOLOGICAL Hx Blood Disorders: No - INTEGUMENTARY Hx Dermatological Problems: No - MUSCULOSKELETAL/RHEUMATOLOGICAL Hx Falls: No - GASTROINTESTINAL Hx Gastrointestinal Disorders: No - GENITOURINARY/GYNECOLOGICAL Hx Genitourinary Disorders: No - PSYCHIATRIC Hx Substance Use: No - SURGICAL HISTORY Hx Surgeries: Yes Other/Comment: I /d right big toe. Two chest tubes as per patient-2017 - ANESTHESIA Hx Anesthesia: Yes Meds Allergies/Adverse Reactions: Allergies Allergy/AdvReac Type Severity Reaction Status Date / Time No Known Allergies Allergy Verified 12/08/16 12:22 - Medications Medications: Current Medications Amlodipine Besylate (Norvasc) 5 mg PO DAILY [facility] Last Admin: 02/01/18 10:52 Dose: 5 mg Folic Acid (Folic Acid) 1 mg PO DAILY [facility] Last Admin: 02/01/18 10:54 Dose: 1 mg Sodium Chloride (Sodium Chloride 0.9%) 1,000 mls @ 100 mls/hr IV .Q10H [facility] Last Admin: 02/01/18 09:10 Dose: 100 mls/hr Vancomycin/Sodium Chloride (Vancomycin 1 Gm/Ns 200 Ml) 1 gm in 200 mls @ 133.333 mls/hr IVPB Q12H [facility] PRN Reason: Protocol Stop: 02/06/18 21:01 Piperacillin Sod/Tazobactam (Sod 3.375 gm/ Sodium Chloride) 100 mls @ 200 mls/ hr IVPB Q6H [facility] PRN Reason: Protocol Last Admin: 02/01/18 14:34 Dose: 200 mls/hr Lactated Ringer's (Lactated Ringer's) 1,000 mls @ 100 mls/hr IV .Q10H [facility] Insulin Human Regular (Novolin R) 0 unit SC ACHS [facility] PRN Reason: Protocol Last Admin: 02/01/18 12:11 Dose: Not Given Lactobacillus Acidophilus (Bacid Acidophilus) 1 cap PO BID [facility] Last Admin: 02/01/18 10:53 Dose: 1 cap Lisinopril (Zestril) 20 mg PO DAILY [facility] Last Admin: 02/01/18 10:56 Dose: Not Given Metformin HCl (Glucophage) 1,000 mg PO BID [facility] Last Admin: 02/01/18 10:53 Dose: 1,000 mg Metoprolol Tartrate (Lopressor) 25 mg PO BID [facility] Last Admin: 02/01/18 10:54 Dose: 25 mg Oxycodone/Acetaminophen (Percocet 5/325 Mg Tab) 1 tab PO Q6H PRN PRN Reason: Pain, moderate (4-7) Stop: 02/04/18 12:34 Results - Vital Signs Recent Vital Signs: Last Vital Signs Temp 97.6 F 02/01/18 15:08 Pulse 79 02/01/18 15:08 Resp 20 02/01/18 15:08 BP 106/69 02/01/18 15:08 Pulse Ox 97 02/01/18 15:08 - Labs Result Diagrams: 02/01/18 08:05 02/01/18 08:05 Labs: Laboratory Results - last 24 hr 02/01/18 02/01/18 02/01/18 08:05 08:05 13:30 WBC 7.5 RBC 4.73 Hgb 13.9 D Hct 39.9 MCV 84.4 MCH 29.4 MCHC 34.8 RDW 12.7 Plt Count 175 MPV 10.3 Neut % (Auto) 65.3 Lymph % (Auto) 24.6 [place] % (Auto) 8.6 Eos % (Auto) 1.3 Baso % (Auto) 0.2 Neut # (Auto) 4.9 Lymph # (Auto) 1.8 [place] # (Auto) 0.6 Eos # (Auto) 0.1 Baso # (Auto) 0.0 Sodium 137 Potassium 4.5 Chloride 101 Carbon Dioxide 23 Anion Gap 18 BUN 17 Creatinine 0.8 Est GFR ( Amer) > 60 Est GFR (Non-Af Amer) > 60 POC Glucose (mg/dL) 260 H Random Glucose 363 H Calcium 9.6 Total Bilirubin 1.1 AST 18 ALT 24 Alkaline Phosphatase 73 Total Protein 7.5 Albumin 4.3 Globulin 3.2 Albumin/Globulin Ratio 1.3
[2018-02-01] MEDS: Vancomycin 1 gm/NS 200 ml 1 GM/200 ML BAG IVPB SCH (20:55)
--- NOTE | 2018-02-02 00:25 | OP ---
PROCEDURE DATE: 02/01/2018 PREOPERATIVE DIAGNOSIS: Necrotizing infection of abdominal wall. PROCEDURE CARRIED OUT: Debridement of skin and subcutaneous tissue, abdominal wall. SURGEON: Leon Sanders Jr., MD CINDER CRANE OPERATOR: ANESTHESIOLOGIST: Dr. Coleman. INDICATIONS FOR SURGERY: The patient is a middle-aged man with diabetes with large, serious infection of his abdominal wall. OPERATIVE FINDINGS: This is more of fungal which had multiple draining abscesses. These were all incised, drained, and the segment of tissue from the skin, subcutaneous tissue, and of the abdominal wall was removed. After this had been done, we then obtained hemostasis, packed the wound open, and terminated the procedure. Blood loss for the procedure was 15 to 20 mL. OPERATION CARRIED OUT: Debridement of skin, subcutaneous tissue of abdominal wall. Leon Sanders Jr., MD
[2018-02-02] MEDS: Piperacillin/Tazobact 3.375 GM in Sodium Chloride 100 ML IVPB SCH ×4 (02:28→20:30)
--- NOTE | 2018-02-02 03:51 | CON ---
DATE: 02/01/2018 INFECTIOUS DISEASE CONSULTATION The patient is presently on [facility] in room 368, bed B. Chart reviewed. Patient examined. Case discussed. HISTORY OF PRESENT ILLNESS: This patient is a 42-year-old male who was admitted via the emergency room with progressive unresponding pain, redness of the left lower abdominal area, presented initially according to the patient as a pimple, which he self expressed, " he popped", but has gotten worse and has spread this drainage from the area. Of note, the patient's blood sugars are in the high 300s. An infectious disease consultation was requested in view of the patient's diabetes, long-term complications with pulmonary empyema and presently rule out synergistic gangrene, rule out Poonam's gangrene. PAST MEDICAL HISTORY: As noted includes, but not limited to, the following and on respiratory ventilation. Drainage of the chest wall with multiple drainage devices, approximately in 09/2016 or 10/2016. Incision of the right lower lung. Excision of the right pleura. Extraction of chest skin, external approach. Insertion of infusion device, anterior and superior vena cava, percutaneous approach. Chest skin external approach, transfused red blood cells. He has diabetes. There is obesity. There is asthma. ALLERGIES: DENIES ALLERGIES TO MEDICATIONS. SOCIAL HISTORY: No recent tobacco or ethanol use. No substance abuse. FAMILY HISTORY: Unknown. Apparently has had the routine influenza pneumonia vaccines. REVIEW OF SYSTEMS: Negative for fevers, chills, cough, shortness of breath. Has a relatively large abscess in the left lower abdominal area, which was incised and drained earlier today by Dr. Sanders. PHYSICAL EXAMINATION: GENERAL: The patient is awake and alert. No temperatures or chills. VITAL SIGNS: Temperature of 98.6 and 97.6, blood pressure 106/69, pulse is 79, respirations are 18. ABDOMEN: The abdominal area has a 12 cm wide x 8 cm indurated area that has been incised and drained with abscess in the center with packing at present. No cough. No chills. HEENT: Head, eyes, ears, nose and throat within normal limits. NECK: Supple. CHEST: Decreased breath sounds but clear. COR: Regular rhythm. ABDOMEN: As mentioned. EXTREMITIES: No clubbing, cyanosis, or edema. LABORATORY DATA: Shows a white count of 7.5, hemoglobin 13.9, hematocrit 39.9, platelets 175. Sodium 137, potassium 4.9, chloride is 102, CO2 is 23, BUN is 17, creatinine 0.8, blood sugar 363. IMPRESSION: From the infectious disease point of view includes, but not limited to, a 42-year-old male with diabetes and an abdominal wall abscess with diabetes out of control, rule out early Poonam's gangrene, rule out aerobic and anaerobic infection of the abdomen. PLAN: Includes obvious surgical intervention, which should include good diabetic type management, blood pressure control and from the infectious disease point of view continue the Zosyn 3.375 g every 6 hours and vancomycin every 12 hours. Awaiting culture results. Considering the patient's weight, he may do better with a drug like Vibativ. We will review and consider accordingly. We will get a vancomycin trough level tomorrow. Rona East MD
[2018-02-02] MEDS: Sodium Chloride 0.9% 1,000 ML IV SCH (04:58)
[2018-02-02] MEDS: (Novolin R) Insulin Human Regular 100 units/ml vial SC SCH ×4 (07:42→21:22)
--- NOTE | 2018-02-02 08:23 | CP.PCM.PN ---
Subjective - Date & Time of Evaluation Date of Evaluation: 02/02/18 Time of Evaluation: 08:21 - Subjective Subjective: General Surgery Progress Note for Dr. Sanders This 42M was seen and examined this AM at bedside no acute events overnight. His dressing was clean dry and intact this AM it was taken down and he packing was changed. He denies any abdominal pain, chest pain or SOB. Objective - Vital Signs/Intake and Output Vital Signs (last 24 hours): Temp Pulse Resp BP Pulse Ox 98.2 F 83 20 126/77 97 02/01/18 23:38 02/01/18 23:38 02/01/18 23:38 02/01/18 23:38 02/01/18 23:38 Intake and Output: 02/02/18 02/02/18 06:59 18:59 Intake Total 2410 Balance 2410 - Medications Medications: Current Medications Amlodipine Besylate (Norvasc) 5 mg PO DAILY [facility] Last Admin: 02/01/18 10:52 Dose: 5 mg Folic Acid (Folic Acid) 1 mg PO DAILY [facility] Last Admin: 02/01/18 10:54 Dose: 1 mg Vancomycin/Sodium Chloride (Vancomycin 1 Gm/Ns 200 Ml) 1 gm in 200 mls @ 133.333 mls/hr IVPB Q12H [facility] PRN Reason: Protocol Stop: 02/06/18 21:01 Last Admin: 02/01/18 20:55 Dose: 133.333 mls/hr Piperacillin Sod/Tazobactam (Sod 3.375 gm/ Sodium Chloride) 100 mls @ 200 mls/ hr IVPB Q6H [facility] PRN Reason: Protocol Last Admin: 02/02/18 02:28 Dose: 200 mls/hr Insulin Human Regular (Novolin R) 0 unit SC ACHS [facility] PRN Reason: Protocol Last Admin: 02/02/18 07:42 Dose: 3 units Lactobacillus Acidophilus (Bacid Acidophilus) 1 cap PO BID [facility] Last Admin: 02/01/18 17:42 Dose: 1 cap Lisinopril (Zestril) 20 mg PO DAILY [facility] Last Admin: 02/01/18 10:56 Dose: Not Given Metformin HCl (Glucophage) 1,000 mg PO BID [facility] Last Admin: 02/01/18 17:40 Dose: 1,000 mg Metoprolol Tartrate (Lopressor) 25 mg PO BID [facility] Last Admin: 02/01/18 17:46 Dose: Not Given Oxycodone/Acetaminophen (Percocet 5/325 Mg Tab) 1 tab PO Q6H PRN PRN Reason: Pain, moderate (4-7) Stop: 02/04/18 12:34 Last Admin: 02/02/18 07:40 Dose: 1 tab - Labs Labs: 02/01/18 08:05 02/01/18 08:05 - Constitutional Appears: Non-toxic, No Acute Distress - Head Exam Head Exam: ATRAUMATIC, NORMOCEPHALIC - Eye Exam Eye Exam: EOMI - ENT Exam ENT Exam: Mucous Membranes Moist - Respiratory Exam Respiratory Exam: NORMAL BREATHING PATTERN - Cardiovascular Exam Cardiovascular Exam: +S1, +S2 - GI/Abdominal Exam GI & Abdominal Exam: Soft. absent: Distended, Firm, Guarding, Rigid, Tenderness Additional comments: erythema improving, no purulence from the wound - Neurological Exam Neurological Exam: Alert, Awake - Psychiatric Exam Psychiatric exam: Normal Affect, Normal Mood - Skin Skin Exam: Dry, Intact Assessment and Plan - Assessment and Plan (Free Text) Assessment: 42M pod#1 s/p i&d of abdominal wall abscess and doing well Daily packing changes ABX recommend tighter glucose control D/W Dr. Marilyn Hernandez PGY3
[2018-02-02] MEDS: Vancomycin 1 gm/NS 200 ml 1 GM/200 ML BAG IVPB SCH ×2 (09:44→21:18)
[2018-02-02] MEDS: Lactobacillus Acidophilus 500 MU Cap PO SCH ×2 (10:47→18:00)
[2018-02-03] MEDS: Piperacillin/Tazobact 3.375 GM in Sodium Chloride 100 ML IVPB SCH ×3 (02:03→14:25)
[2018-02-03 07:44] LABS: BASO % 0.2 % (0.0-2.0); EOS # 0.1 K/uL (0.0-0.7); EOS % 1.4 % (0.0-4.0); HEMOGLOBIN 12.2 g/dL (12.0-18.0); LYMPH # 1.8 K/uL (1.0-4.3); LYMPH % 34.2 % (20.0-40.0); MEAN CELL VOLUME 84.3 fL (80.0-94.0); MEAN CORPUSCULAR HEMOGLOBIN 29.3 pg (27.0-31.0); MEAN CORPUSCULAR HGB CONC 34.7 g/dL (33.0-37.0); MEAN PLATELET VOLUME 10.6 fL (7.2-11.7); MONO # 0.5 K/uL (0.0-0.8); MONO % 9.8 % (0.0-10.0); NEUT # 2.9 K/uL (1.8-7.0); NEUT % 54.4 % (50.0-75.0); NRBC % 0.1 % (0.0-2.0); RBC 4.17 Mil/uL (4.40-5.90); RED CELL DISTRIBUTION WIDTH 12.7 % (11.5-14.5); WHITE BLOOD COUNT 5.3 K/uL (4.8-10.8)
[2018-02-03 08:23] LABS: ALB/GLOB RATIO 1.2 (1.0-2.1); ALBUMIN 3.6 g/dL (3.5-5.0); ALT/SGPT 26 U/L (21-72); AST/SGOT 17 U/L (17-59); BLOOD UREA NITROGEN 13 mg/dL (9-20); CALCIUM 9.1 mg/dl (8.6-10.4); GFR NON-AFRICAN AMERICAN > 60
[2018-02-03] MEDS: (Novolin R) Insulin Human Regular 100 units/ml vial SC SCH ×4 (08:27→21:29)
--- NOTE | 2018-02-03 08:48 | CP.PCM.PN ---
Subjective - Date & Time of Evaluation Date of Evaluation: 02/03/18 Time of Evaluation: 08:45 - Subjective Subjective: Surgery: Dr. Sanders Pt seen and examined. Resting comfortably in bed. Pain controlled. No F/C. Tolerating diet. Does report some diarrhea. Objective - Vital Signs/Intake and Output Vital Signs (last 24 hours): Temp Pulse Resp BP Pulse Ox 98.9 F 73 20 149/90 95 02/03/18 08:03 02/03/18 08:03 02/03/18 08:03 02/03/18 08:03 02/03/18 08:03 Intake and Output: 02/03/18 02/03/18 06:59 18:59 Intake Total 590 Balance 590 - Medications Medications: Current Medications Amlodipine Besylate (Norvasc) 5 mg PO DAILY [facility] Last Admin: 02/02/18 09:43 Dose: 5 mg Folic Acid (Folic Acid) 1 mg PO DAILY [facility] Last Admin: 02/02/18 09:43 Dose: 1 mg Vancomycin/Sodium Chloride (Vancomycin 1 Gm/Ns 200 Ml) 1 gm in 200 mls @ 133.333 mls/hr IVPB Q12H [facility] PRN Reason: Protocol Stop: 02/06/18 21:01 Last Admin: 02/02/18 21:18 Dose: 133.333 mls/hr Piperacillin Sod/Tazobactam (Sod 3.375 gm/ Sodium Chloride) 100 mls @ 200 mls/ hr IVPB Q6H [facility] PRN Reason: Protocol Last Admin: 02/03/18 02:03 Dose: 200 mls/hr Insulin Human Regular (Novolin R) 0 unit SC ACHS [facility] PRN Reason: Protocol Last Admin: 02/03/18 08:27 Dose: 1 units Lactobacillus Acidophilus (Bacid Acidophilus) 1 cap PO BID [facility] Last Admin: 02/02/18 18:00 Dose: 1 cap Lisinopril (Zestril) 20 mg PO DAILY [facility] Last Admin: 02/02/18 09:43 Dose: 20 mg Metformin HCl (Glucophage) 1,000 mg PO BID [facility] Last Admin: 02/02/18 17:24 Dose: 1,000 mg Metoprolol Tartrate (Lopressor) 25 mg PO BID [facility] Last Admin: 02/02/18 17:24 Dose: 25 mg Oxycodone/Acetaminophen (Percocet 5/325 Mg Tab) 1 tab PO Q6H [facility]N PRN Reason: Pain, moderate (4-7) Stop: 02/04/18 12:34 Last Admin: 02/02/18 07:40 Dose: 1 tab - Labs Labs: 02/03/18 07:37 02/03/18 07:37 - Constitutional Appears: Non-toxic, No Acute Distress - Head Exam Head Exam: ATRAUMATIC, NORMOCEPHALIC - Eye Exam Eye Exam: EOMI - ENT Exam ENT Exam: Mucous Membranes Moist - Neck Exam Neck Exam: Full ROM - Respiratory Exam Respiratory Exam: NORMAL BREATHING PATTERN. absent: Accessory Muscle Use, Respiratory Distress - GI/Abdominal Exam Additional comments: Abscess, s/p I&D to L of umbilicus ~ [id number] w. surrounding erythema, improved compared to day prior, mildly tender, warm to touch, no fluctuance or drainage - Extremities Exam Extremities Exam: absent: Calf Tenderness, Pedal Edema - Neurological Exam Neurological Exam: Alert, Awake, Oriented x3 - Skin Skin Exam: Dry, Warm Assessment and Plan - Assessment and Plan (Free Text) Assessment: 42M w. abdominal wall abscess, s/p I&D, POD#2 -clear for D/C from surgical standpoint -local wound care: Daily dressing changes, change if dressing is saturated -Tylenol/Advil for pain -wound Cx: Beta hemolytic strep - recommend out pt abx for 1 week, will defer to primary -pt to follow up with Dr. Sanders in 1-2 weeks -d/w attending Zemaitis PGY4
[2018-02-03] MEDS: Vancomycin 1 gm/NS 200 ml 1 GM/200 ML BAG IVPB SCH (09:52)
[2018-02-03] MEDS: Lactobacillus Acidophilus 500 MU Cap PO SCH ×2 (09:53→17:46)
--- NOTE | 2018-02-03 17:46 | CP.PCM.PN ---
Subjective - Date & Time of Evaluation Date of Evaluation: 02/03/18 Time of Evaluation: 17:44 - Subjective Subjective: INFECTIOUS DISEASE PROGRESS NOTES MARIA DIAZ MD, FACP 02/02- 3T 368-B CHART REVIEWED PT EXAMINED CASE DISCUSSED CLINICALLY SLOWLY RESPONDING C/S FINALLY BACK-GROUP B STREP AND MSSA, ERGO, SWITCH ANTIBIOTICS TO ANCEF 2GMIVPG Q 8 PLUS FLAGYL 500MG IVPG Q 8. WILL NEED PROLONGED AB. Objective - Vital Signs/Intake and Output Vital Signs (last 24 hours): Temp Pulse Resp BP Pulse Ox 97.8 F 81 20 124/70 98 02/03/18 16:39 02/03/18 16:39 02/03/18 16:39 02/03/18 16:39 02/03/18 16:39 Intake and Output: 02/03/18 02/03/18 06:59 18:59 Intake Total 590 730 Balance 590 730 - Medications Medications: Current Medications Amlodipine Besylate (Norvasc) 5 mg PO DAILY [facility] Last Admin: 02/03/18 09:53 Dose: 5 mg Folic Acid (Folic Acid) 1 mg PO DAILY [facility] Last Admin: 02/03/18 09:53 Dose: 1 mg Cefazolin Sodium 2,000 mg/ (Sodium Chloride) 50 mls @ 100 mls/hr IVPB Q8H [facility] PRN Reason: Protocol Metronidazole (Flagyl) 500 mg in 100 mls @ 100 mls/hr IVPB Q8H [facility] PRN Reason: Protocol Insulin Human Regular (Novolin R) 0 unit SC ACHS [facility] PRN Reason: Protocol Last Admin: 02/03/18 11:52 Dose: 3 units Lactobacillus Acidophilus (Bacid Acidophilus) 1 cap PO BID [facility] Last Admin: 02/03/18 09:53 Dose: 1 cap Lisinopril (Zestril) 20 mg PO DAILY [facility] Last Admin: 02/03/18 10:50 Dose: 20 mg Metformin HCl (Glucophage) 1,000 mg PO BID [facility] Last Admin: 02/03/18 09:53 Dose: 1,000 mg Metoprolol Tartrate (Lopressor) 25 mg PO BID [facility] Last Admin: 02/03/18 09:53 Dose: 25 mg Oxycodone/Acetaminophen (Percocet 5/325 Mg Tab) 1 tab PO Q6H PRN PRN Reason: Pain, moderate (4-7) Stop: 02/04/18 12:34 Last Admin: 02/02/18 07:40 Dose: 1 tab - Labs Labs: 02/03/18 07:37 02/03/18 07:37 Assessment and Plan (1) Abscess of abdominal wall Status: Acute (2) Cellulitis of left abdominal wall Status: Acute (3) Uncontrolled diabetes mellitus Status: Acute (4) Encounter for postoperative wound care Status: Acute
[2018-02-03] MEDS: metroNIDAZOLE IV 500 mg/100 ml 500 MG/100 ML BAG IVPB SCH (18:00)
--- NOTE | 2018-02-03 20:21 | CP.PCM.HP ---
History of Present Illness - History of Present Illness History of Present Illness: Chief complaints: Swelling and pain in the abdominal wall HPI: 42-year-old male with a history of hypertension, diabetes, hypercholesterolemia admitted to in 2017 with the empyema, and pneumonia involving the right chest. Patient also had uncontrolled diabetes. Came to the emergency room with the worsening swelling in the left abdominal wall. 3-4 days ago patient saw some pimple-like skin lesion, and he popped it up 3 days ago, and since then there was increasing redness and swelling. Patient was on the pool, 3 days ago, symptoms got worse. Now having increasing redness swelling and pain, and the pus formation. He did not have any systemic symptoms including fever chills nausea vomiting or other signs. In the emergency room patient was seen by ED, and decided to hospitalize because of the uncontrolled diabetes, immunocompromised status, as well as prior history. Past medical history: Diabetes hypertension hypercholesterolemia obesity, hypoventilation. Patient also had a history of empyema, status post thoracotomy Surgical history includes history of thoracotomy in the past. Allergies no known drug allergy Personal history: Nonsmoker nonalcoholic. Family history of diabetes hypertension mother had a history of PVD and also amputation Review of system: Patient is having no headache or visual syndrome denies any chest pain or shortness of breath, abdominal wall swelling pain redness present. Some tenderness present. No fever No GI symptoms On examination: Vital signs stable. Chest bilateral good air entry. Regular heart sound noted. Nontender abdomen. Patient has a large indurated, unhealthy erythematous with unhealthy base of ulcer noted involving the left side of umbalicus involving the soft tissue in and skin. Patient does not look toxic at this time. Labs: Patient's labs reviewed CBC, CMP noted. Elevated blood sugar noted. Otherwise nonspecific. Assessment and recommendation: 42-year-old male with a history of diabetes, hypertension, hypercholesteremia, history of uncontrolled diabetes with the elevated hemoglobin A1c in the past, and also empyema recurrent bacterial infection the past. Patient now admitted with the possible acute cellulitis and associated abscess formation involving the skin and soft tissue of the abdominal wall. Patient definitely needed intravenous antibiotic. ID evaluation. Surgical evaluation. Glucose control. DVT GI prophylaxis. Spoke to the patient. We'll continue the current treatment. Will follow-up the patient. Present on Admission - Present on Admission Any Indicators Present on Admission: No History of DVT/PE: No History of Uncontrolled Diabetes: No Urinary Catheter: No Decubitus Ulcer Present: No Past Patient History - Infectious Disease Hx of Infectious Diseases: None - Tetanus Immunizations Tetanus Immunization: Unknown - Past Medical History & Family History Past Medical History?: Yes - Past Social History Smoking Status: Never Smoked - CARDIAC Hx Hypertension: Yes - PULMONARY Hx Asthma: Yes Hx Pneumonia: Yes - NEUROLOGICAL Hx Neurological Disorder: No - HEENT Other/Comment: uses bifocal eye glasses - RENAL Hx Chronic Kidney Disease: No - ENDOCRINE/METABOLIC Hx Diabetes Mellitus Type 2: Yes - HEMATOLOGICAL/ONCOLOGICAL Hx Blood Disorders: No - INTEGUMENTARY Hx Dermatological Problems: No - MUSCULOSKELETAL/RHEUMATOLOGICAL Hx Falls: No - GASTROINTESTINAL Hx Gastrointestinal Disorders: No - GENITOURINARY/GYNECOLOGICAL Hx Genitourinary Disorders: No - PSYCHIATRIC Hx Substance Use: No - SURGICAL HISTORY Hx Surgeries: Yes Other/Comment: I /d right big toe. Two chest tubes as per patient-2017 - ANESTHESIA Hx Anesthesia: Yes Meds Allergies/Adverse Reactions: Allergies Allergy/AdvReac Type Severity Reaction Status Date / Time No Known Allergies Allergy Verified 12/08/16 12:22 Results - Vital Signs Recent Vital Signs: Last Vital Signs Temp 97.8 F 02/03/18 16:39 Pulse 81 02/03/18 16:39 Resp 20 02/03/18 16:39 BP 124/70 02/03/18 17:50 Pulse Ox 98 02/03/18 16:39 - Labs Result Diagrams: 02/03/18 07:37 02/03/18 07:37 Labs: Laboratory Results - last 24 hr 02/02/18 02/03/18 02/03/18 21:15 07:12 07:37 WBC 5.3 RBC 4.17 L Hgb 12.2 Hct 35.1 MCV 84.3 MCH 29.3 MCHC 34.7 RDW 12.7 Plt Count 174 MPV 10.6 Neut % (Auto) 54.4 Lymph % (Auto) 34.2 [place] % (Auto) 9.8 Eos % (Auto) 1.4 Baso % (Auto) 0.2 Neut # (Auto) 2.9 Lymph # (Auto) 1.8 [place] # (Auto) 0.5 Eos # (Auto) 0.1 Baso # (Auto) 0.0 ESR 55 H Sodium Potassium Chloride Carbon Dioxide Anion Gap BUN Creatinine Est GFR ( Amer) Est GFR (Non-Af Amer) POC Glucose (mg/dL) 215 H 248 H Random Glucose Calcium Total Bilirubin AST ALT Alkaline Phosphatase C-Reactive Protein Total Protein Albumin Globulin Albumin/Globulin Ratio Vancomycin Trough 02/03/18 02/03/18 02/03/18 07:37 08:29 11:18 WBC RBC Hgb Hct MCV MCH MCHC RDW Plt Count MPV Neut % (Auto) Lymph % (Auto) Valencia % (Auto) Eos % (Auto) Baso % (Auto) Neut # (Auto) Lymph # (Auto) Valencia # (Auto) Eos # (Auto) Baso # (Auto) ESR Sodium 135 Potassium 4.3 Chloride 100 Carbon Dioxide 25 Anion Gap 14 BUN 13 Creatinine 0.8 Est GFR ( Amer) > 60 Est GFR (Non-Af Amer) > 60 POC Glucose (mg/dL) 298 H Random Glucose 259 H Calcium 9.1 Total Bilirubin 1.0 AST 17 ALT 26 Alkaline Phosphatase 59 C-Reactive Protein 33.10 H Total Protein 6.6 Albumin 3.6 Globulin 3.0 Albumin/Globulin Ratio 1.2 Vancomycin Trough 5.1 02/03/18 16:15 WBC RBC Hgb Hct MCV MCH MCHC RDW Plt Count MPV Neut % (Auto) Lymph % (Auto) Valencia % (Auto) Eos % (Auto) Baso % (Auto) Neut # (Auto) Lymph # (Auto) Valencia # (Auto) Eos # (Auto) Baso # (Auto) ESR Sodium Potassium Chloride Carbon Dioxide Anion Gap BUN Creatinine Est GFR ( Amer) Est GFR (Non-Af Amer) POC Glucose (mg/dL) 224 H Random Glucose Calcium Total Bilirubin AST ALT Alkaline Phosphatase C-Reactive Protein Total Protein Albumin Globulin Albumin/Globulin Ratio Vancomycin Trough
--- NOTE | 2018-02-03 20:22 | CP.PCM.PN ---
Subjective - Date & Time of Evaluation Date of Evaluation: 02/02/18 Time of Evaluation: 20:22 - Subjective Subjective: Yesterday patient underwent incision and drainage of the abdominal abscess. Significant amount of pus was removed. There is a significant gap Noted. Wound dressing is done. Patient sugar is somewhat controlled. He is feeling well, no pain noted, no fever chills. Vital signs stable. Discussed with the patient and . Chest good air entry bilaterally regular heart sound nontender abdomen no pedal edema On antibiotic. Patient is on vancomycin and Zosyn. Infectious disease evaluation on. Appreciate surgical evaluation and management. Assessment and recognition: 42-year-old male with uncontrolled diabetes. Hypertension hypercholesteremia. History of pneumonia empyema Patient now admitted with abdominal wall cellulitis and soft tissue abscess. Culture pending. On antibiotic continue the current treatment and will follow the patient Objective - Vital Signs/Intake and Output Vital Signs (last 24 hours): Temp Pulse Resp BP Pulse Ox 97.8 F 81 20 124/70 98 02/03/18 16:39 02/03/18 16:39 02/03/18 16:39 02/03/18 17:50 02/03/18 16:39 Intake and Output: 02/03/18 02/04/18 18:59 06:59 Intake Total 730 Balance 730 - Medications Medications: Current Medications Amlodipine Besylate (Norvasc) 5 mg PO DAILY [facility] Last Admin: 02/03/18 09:53 Dose: 5 mg Folic Acid (Folic Acid) 1 mg PO DAILY [facility] Last Admin: 02/03/18 09:53 Dose: 1 mg Cefazolin Sodium 2,000 mg/ (Sodium Chloride) 50 mls @ 100 mls/hr IVPB Q8H [facility] PRN Reason: Protocol Metronidazole (Flagyl) 500 mg in 100 mls @ 100 mls/hr IVPB Q8H [facility] PRN Reason: Protocol Insulin Human Regular (Novolin R) 0 unit SC ACHS [facility] PRN Reason: Protocol Last Admin: 02/03/18 16:30 Dose: 2 units Lactobacillus Acidophilus (Bacid Acidophilus) 1 cap PO BID [facility] Last Admin: 02/03/18 17:46 Dose: 1 cap Lisinopril (Zestril) 20 mg PO DAILY [facility] Last Admin: 02/03/18 10:50 Dose: 20 mg Metformin HCl (Glucophage) 1,000 mg PO BID [facility] Last Admin: 02/03/18 17:49 Dose: 1,000 mg Metoprolol Tartrate (Lopressor) 25 mg PO BID [facility] Last Admin: 02/03/18 17:50 Dose: 25 mg Oxycodone/Acetaminophen (Percocet 5/325 Mg Tab) 1 tab PO Q6H PRN PRN Reason: Pain, moderate (4-7) Stop: 02/04/18 12:34 Last Admin: 02/02/18 07:40 Dose: 1 tab - Labs Labs: 02/03/18 07:37 02/03/18 07:37
--- NOTE | 2018-02-03 20:26 | CP.PCM.PN ---
Subjective - Date & Time of Evaluation Date of Evaluation: 02/03/18 Time of Evaluation: 20:26 - Subjective Subjective: Patient today already seen by infectious disease, surgical. Resting comfortably. Not in any distress. Vital signs stable. Afebrile blood pressure stable. On examination: Chest bilateral good air entry no wheezing or rales noted. The abdominal wall wound is being dressed. Labs reviewed Microbiology showing evidence of beta-hemolytic Streptococcus group B Also Staphylococcus aureus sensitive. Currently patient is on cefazolin and also metronidazole as per ID. Pain control. Glucose control. We'll continue the current management. DVT GI prophylaxis and will follow-up the patient Objective - Vital Signs/Intake and Output Vital Signs (last 24 hours): Temp Pulse Resp BP Pulse Ox 97.8 F 81 20 124/70 98 02/03/18 16:39 02/03/18 16:39 02/03/18 16:39 02/03/18 17:50 02/03/18 16:39 Intake and Output: 02/03/18 02/04/18 18:59 06:59 Intake Total 730 Balance 730 - Medications Medications: Current Medications Amlodipine Besylate (Norvasc) 5 mg PO DAILY [facility] Last Admin: 02/03/18 09:53 Dose: 5 mg Folic Acid (Folic Acid) 1 mg PO DAILY [facility] Last Admin: 02/03/18 09:53 Dose: 1 mg Cefazolin Sodium 2,000 mg/ (Sodium Chloride) 50 mls @ 100 mls/hr IVPB Q8H [facility] PRN Reason: Protocol Metronidazole (Flagyl) 500 mg in 100 mls @ 100 mls/hr IVPB Q8H [facility] PRN Reason: Protocol Insulin Human Regular (Novolin R) 0 unit SC ACHS [facility] PRN Reason: Protocol Last Admin: 02/03/18 16:30 Dose: 2 units Lactobacillus Acidophilus (Bacid Acidophilus) 1 cap PO BID [facility] Last Admin: 02/03/18 17:46 Dose: 1 cap Lisinopril (Zestril) 20 mg PO DAILY [facility] Last Admin: 02/03/18 10:50 Dose: 20 mg Metformin HCl (Glucophage) 1,000 mg PO BID [facility] Last Admin: 02/03/18 17:49 Dose: 1,000 mg Metoprolol Tartrate (Lopressor) 25 mg PO BID [facility] Last Admin: 02/03/18 17:50 Dose: 25 mg Oxycodone/Acetaminophen (Percocet 5/325 Mg Tab) 1 tab PO Q6H PRN PRN Reason: Pain, moderate (4-7) Stop: 02/04/18 12:34 Last Admin: 02/02/18 07:40 Dose: 1 tab - Labs Labs: 02/03/18 07:37 02/03/18 07:37
[2018-02-04] MEDS: metroNIDAZOLE IV 500 mg/100 ml 500 MG/100 ML BAG IVPB SCH ×3 (01:15→17:25)
[2018-02-04] MEDS: (Novolin R) Insulin Human Regular 100 units/ml vial SC SCH ×5 (07:47→23:35)
--- NOTE | 2018-02-04 08:10 | CP.PCM.PN ---
Subjective - Date & Time of Evaluation Date of Evaluation: 02/04/18 Time of Evaluation: 08:08 - Subjective Subjective: General Surgery Progress Note for Dr. Sanders 42M seen and evaluated this morning at bedside. No acute events overnight. No complaints of pain at or near the incision and drainage site. Denies f/c, n/v/d , SOB, CP. Objective - Vital Signs/Intake and Output Vital Signs (last 24 hours): Temp Pulse Resp BP Pulse Ox 98.3 F 79 18 124/70 98 02/04/18 00:22 02/04/18 00:22 02/04/18 00:22 02/04/18 00:22 02/04/18 00:22 - Medications Medications: Current Medications Amlodipine Besylate (Norvasc) 5 mg PO DAILY [facility] Last Admin: 02/03/18 09:53 Dose: 5 mg Folic Acid (Folic Acid) 1 mg PO DAILY [facility] Last Admin: 02/03/18 09:53 Dose: 1 mg Cefazolin Sodium 2,000 mg/ (Sodium Chloride) 50 mls @ 100 mls/hr IVPB Q8H [facility] PRN Reason: Protocol Last Admin: 02/04/18 02:50 Dose: 100 mls/hr Metronidazole (Flagyl) 500 mg in 100 mls @ 100 mls/hr IVPB Q8H [facility] PRN Reason: Protocol Last Admin: 02/04/18 01:15 Dose: 100 mls/hr Insulin Human Regular (Novolin R) 0 unit SC ACHS [facility] PRN Reason: Protocol Last Admin: 02/04/18 07:47 Dose: 2 units Lactobacillus Acidophilus (Bacid Acidophilus) 1 cap PO BID [facility] Last Admin: 02/03/18 17:46 Dose: 1 cap Lisinopril (Zestril) 20 mg PO DAILY [facility] Last Admin: 02/03/18 10:50 Dose: 20 mg Metformin HCl (Glucophage) 1,000 mg PO BID [facility] Last Admin: 02/03/18 17:49 Dose: 1,000 mg Metoprolol Tartrate (Lopressor) 25 mg PO BID [facility] Last Admin: 02/03/18 17:50 Dose: 25 mg Oxycodone/Acetaminophen (Percocet 5/325 Mg Tab) 1 tab PO Q6H PRN PRN Reason: Pain, moderate (4-7) Stop: 02/04/18 12:34 Last Admin: 02/02/18 07:40 Dose: 1 tab - Labs Labs: 02/03/18 07:37 02/03/18 07:37 - Constitutional Appears: Well, Non-toxic, No Acute Distress - Head Exam Head Exam: ATRAUMATIC, NORMAL INSPECTION, NORMOCEPHALIC - Eye Exam Eye Exam: EOMI, Normal appearance - Respiratory Exam Respiratory Exam: Clear to Ausculation Bilateral, NORMAL BREATHING PATTERN - Cardiovascular Exam Cardiovascular Exam: REGULAR RHYTHM, +S1, +S2. absent: Murmur - GI/Abdominal Exam GI & Abdominal Exam: Soft, Normal Bowel Sounds. absent: Tenderness - Neurological Exam Neurological Exam: Alert, Awake, Oriented x3 - Psychiatric Exam Psychiatric exam: Normal Affect, Normal Mood - Skin Additional comments: Left abdominal dressing c/d/i Decreased erythema and drainage Assessment and Plan - Assessment and Plan (Free Text) Assessment: 42M w/ abdominal wall abscess, s/p I&D, POD#3 Plan: local wound care: Daily dressing changes, change if dressing is saturated Tylenol/Advil for pain wound Cx: Beta hemolytic strep - recommend out pt abx for 1 week, will defer to primary pt to follow up with Dr. Sanders in 1-2 weeks clear from a surgical standpoint further recs per Dr. Marilyn Martinez PGY1
--- NOTE | 2018-02-04 09:19 | CP.PCM.PN ---
Subjective - Date & Time of Evaluation Date of Evaluation: 02/04/18 Time of Evaluation: 09:19 - Subjective Subjective: feels ok no fever redness less seen by surgery on antibiotics will f/u Objective - Vital Signs/Intake and Output Vital Signs (last 24 hours): Temp Pulse Resp BP Pulse Ox 98.3 F 79 18 124/70 98 02/04/18 00:22 02/04/18 00:22 02/04/18 00:22 02/04/18 00:22 02/04/18 00:22 - Medications Medications: Current Medications Amlodipine Besylate (Norvasc) 5 mg PO DAILY [facility] Last Admin: 02/03/18 09:53 Dose: 5 mg Folic Acid (Folic Acid) 1 mg PO DAILY [facility] Last Admin: 02/03/18 09:53 Dose: 1 mg Cefazolin Sodium 2,000 mg/ (Sodium Chloride) 50 mls @ 100 mls/hr IVPB Q8H [facility] PRN Reason: Protocol Last Admin: 02/04/18 02:50 Dose: 100 mls/hr Metronidazole (Flagyl) 500 mg in 100 mls @ 100 mls/hr IVPB Q8H [facility] PRN Reason: Protocol Last Admin: 02/04/18 01:15 Dose: 100 mls/hr Insulin Human Regular (Novolin R) 0 unit SC ACHS [facility] PRN Reason: Protocol Last Admin: 02/04/18 07:47 Dose: 2 units Lactobacillus Acidophilus (Bacid Acidophilus) 1 cap PO BID [facility] Last Admin: 02/03/18 17:46 Dose: 1 cap Lisinopril (Zestril) 20 mg PO DAILY [facility] Last Admin: 02/03/18 10:50 Dose: 20 mg Metformin HCl (Glucophage) 1,000 mg PO BID [facility] Last Admin: 02/03/18 17:49 Dose: 1,000 mg Metoprolol Tartrate (Lopressor) 25 mg PO BID [facility] Last Admin: 02/03/18 17:50 Dose: 25 mg Oxycodone/Acetaminophen (Percocet 5/325 Mg Tab) 1 tab PO Q6H PRN PRN Reason: Pain, moderate (4-7) Stop: 02/04/18 12:34 Last Admin: 02/02/18 07:40 Dose: 1 tab - Labs Labs: 02/03/18 07:37 02/03/18 07:37
[2018-02-04] MEDS: Lactobacillus Acidophilus 500 MU Cap PO SCH ×2 (09:29→17:25)
[2018-02-05] MEDS: metroNIDAZOLE IV 500 mg/100 ml 500 MG/100 ML BAG IVPB SCH ×3 (02:13→17:23)
[2018-02-05 07:41] VITALS: RESP 20
[2018-02-05] MEDS: (Novolin R) Insulin Human Regular 100 units/ml vial SC SCH ×4 (08:26→21:56)
--- NOTE | 2018-02-05 09:28 | CP.PCM.PN ---
Subjective - Date & Time of Evaluation Date of Evaluation: 02/05/18 Time of Evaluation: 09:25 - Subjective Subjective: General Surgery Progress Note for Dr. Sanders 42M seen and evaluated this morning at bedside. No acute events overnight. No complaints of pain at or near the incision and drainage site. Denies f/c, n/v/d , SOB, CP. Objective - Vital Signs/Intake and Output Vital Signs (last 24 hours): Temp Pulse Resp BP Pulse Ox 97.4 F L 61 20 144/84 97 02/05/18 07:39 02/05/18 07:39 02/05/18 07:39 02/05/18 07:39 02/05/18 07:39 Intake and Output: 02/05/18 02/05/18 06:59 18:59 Intake Total 500 Output Total 600 Balance -100 - Medications Medications: Current Medications Amlodipine Besylate (Norvasc) 5 mg PO DAILY [facility] Last Admin: 02/04/18 09:27 Dose: 5 mg Enoxaparin Sodium (Lovenox) 40 mg SC DAILY [facility] Folic Acid (Folic Acid) 1 mg PO DAILY [facility] Last Admin: 02/04/18 09:28 Dose: 1 mg Cefazolin Sodium 2,000 mg/ (Sodium Chloride) 50 mls @ 100 mls/hr IVPB Q8H [facility] PRN Reason: Protocol Last Admin: 02/05/18 03:05 Dose: 100 mls/hr Metronidazole (Flagyl) 500 mg in 100 mls @ 100 mls/hr IVPB Q8H [facility] PRN Reason: Protocol Last Admin: 02/05/18 02:13 Dose: 100 mls/hr Insulin Human Regular (Novolin R) 0 unit SC ACHS [facility] PRN Reason: Protocol Last Admin: 02/05/18 08:26 Dose: 2 units Lactobacillus Acidophilus (Bacid Acidophilus) 1 cap PO BID [facility] Last Admin: 02/04/18 17:25 Dose: 1 cap Lisinopril (Zestril) 20 mg PO DAILY [facility] Last Admin: 02/04/18 09:28 Dose: 20 mg Metformin HCl (Glucophage) 1,000 mg PO BID [facility] Last Admin: 02/04/18 17:37 Dose: 1,000 mg Metoprolol Tartrate (Lopressor) 25 mg PO BID [facility] Last Admin: 02/04/18 17:26 Dose: 25 mg - Labs Labs: 02/03/18 07:37 02/03/18 07:37 - Constitutional Appears: Non-toxic, No Acute Distress - Head Exam Head Exam: ATRAUMATIC, NORMOCEPHALIC - Eye Exam Eye Exam: EOMI, Normal appearance - Respiratory Exam Respiratory Exam: Clear to Ausculation Bilateral, NORMAL BREATHING PATTERN - Cardiovascular Exam Cardiovascular Exam: REGULAR RHYTHM, +S1, +S2. absent: Murmur - GI/Abdominal Exam GI & Abdominal Exam: Soft, Normal Bowel Sounds. absent: Tenderness - Neurological Exam Neurological Exam: Alert, Awake, Oriented x3 - Psychiatric Exam Psychiatric exam: Normal Affect, Normal Mood - Skin Additional comments: left abdominal dressing c/d/i decreased erythematous and drainage, non edematous Assessment and Plan - Assessment and Plan (Free Text) Plan: Assessment: 42M w/ abdominal wall abscess, s/p I&D, POD#4 Plan: local wound care: daily dressing changes, change if dressing is saturated Tylenol/Advil for pain wound Cx: Beta hemolytic strep - recommend out pt abx for 1 week, will defer to primary pt to follow up with Dr. Sanders in 1-2 weeks clear from a surgical standpoint further recs per Dr. Marilyn Pereira PGY1
[2018-02-05] MEDS: Enoxaparin 40 mg Syringe SC SCH (10:23)
[2018-02-05] MEDS: Lactobacillus Acidophilus 500 MU Cap PO SCH ×2 (10:54→17:19)
--- NOTE | 2018-02-05 16:08 | CP.PCM.PN ---
Subjective - Date & Time of Evaluation Date of Evaluation: 02/05/18 Time of Evaluation: 16:01 - Subjective Subjective: INFECTIOUS DISEASE PROGRESS NOTES MARIA DIAZ MD, FACP 02/04- 3T 368-B CHART REVIEWED PT EXAMINED CASE DISCUSSED WITH DR AGUIRRE CLINICALLY RESPONDING APPROPIATELY ON IV ANTIBIOTICS THE PTS ABSCESS/CELLULITIS IS BEING TREATED FOR + C/S OF GROUP B STREP AND MSSA WITH ANCEF OR TEFLARO, IN A DIABETIC, POORLY CONTROLLED, ERGO TO COVER FOR ANAERBOES WITH PO FLAGYL ALSO. PT'S CONDITION IS PROBLEMATICALLY ESPECIALLY WITH HIS HIGH BLOOD SUGARS. PT IS AWARE THAT EVENTUALLY IF HE DOESN'T CONTROL HIS DM HE WILL SUCCUMB TO EITHER MICRO/MACRO ANGIOPATHIC CHANGES OF DM AND OR INFECTIONS COMPLICATING HIS DM! KEEP ME IN THE LOOP, PLEASE. Objective - Vital Signs/Intake and Output Vital Signs (last 24 hours): Temp Pulse Resp BP Pulse Ox 97.4 F L 61 20 144/94 H 97 02/05/18 07:39 02/05/18 07:39 02/05/18 07:39 02/05/18 10:22 02/05/18 07:39 Intake and Output: 02/05/18 02/05/18 06:59 18:59 Intake Total 500 880 Output Total 600 Balance -100 880 - Medications Medications: Current Medications Amlodipine Besylate (Norvasc) 5 mg PO DAILY [facility] Last Admin: 02/05/18 10:22 Dose: 5 mg Enoxaparin Sodium (Lovenox) 40 mg SC DAILY [facility] Last Admin: 02/05/18 10:23 Dose: 40 mg Folic Acid (Folic Acid) 1 mg PO DAILY [facility] Last Admin: 02/05/18 10:22 Dose: 1 mg Cefazolin Sodium 2,000 mg/ (Sodium Chloride) 50 mls @ 100 mls/hr IVPB Q8H [facility] PRN Reason: Protocol Last Admin: 02/05/18 12:01 Dose: 100 mls/hr Metronidazole (Flagyl) 500 mg in 100 mls @ 100 mls/hr IVPB Q8H [facility] PRN Reason: Protocol Last Admin: 02/05/18 10:55 Dose: 100 mls/hr Insulin Human Regular (Novolin R) 0 unit SC ACHS [facility] PRN Reason: Protocol Last Admin: 02/05/18 12:00 Dose: 3 units Lactobacillus Acidophilus (Bacid Acidophilus) 1 cap PO BID [facility] Last Admin: 02/05/18 10:54 Dose: 1 cap Lisinopril (Zestril) 20 mg PO DAILY [facility] Last Admin: 02/05/18 10:27 Dose: 20 mg Metformin HCl (Glucophage) 1,000 mg PO BID [facility] Last Admin: 02/05/18 10:22 Dose: 1,000 mg Metoprolol Tartrate (Lopressor) 25 mg PO BID [facility] Last Admin: 02/05/18 10:22 Dose: 25 mg - Labs Labs: 02/03/18 07:37 02/03/18 07:37 Assessment and Plan (1) Abscess of abdominal wall Status: Acute (2) Cellulitis of left abdominal wall Status: Acute (3) Uncontrolled diabetes mellitus Status: Acute (4) Encounter for postoperative wound care Status: Acute
--- NOTE | 2018-02-05 21:26 | CP.PCM.PN ---
Subjective - Date & Time of Evaluation Date of Evaluation: 02/05/18 Time of Evaluation: 21:25 - Subjective Subjective: no fever seen by ID will continue antibiotic possible d/c in am Objective - Vital Signs/Intake and Output Vital Signs (last 24 hours): Temp Pulse Resp BP Pulse Ox 98.7 F 65 20 119/75 97 02/05/18 16:00 02/05/18 16:00 02/05/18 16:00 02/05/18 17:19 02/05/18 16:00 Intake and Output: 02/05/18 02/06/18 18:59 06:59 Intake Total 880 Balance 880 - Medications Medications: Current Medications Amlodipine Besylate (Norvasc) 5 mg PO DAILY [facility] Last Admin: 02/05/18 10:22 Dose: 5 mg Enoxaparin Sodium (Lovenox) 40 mg SC DAILY [facility] Last Admin: 02/05/18 10:23 Dose: 40 mg Folic Acid (Folic Acid) 1 mg PO DAILY [facility] Last Admin: 02/05/18 10:22 Dose: 1 mg Cefazolin Sodium 2,000 mg/ (Sodium Chloride) 50 mls @ 100 mls/hr IVPB Q8H [facility] PRN Reason: Protocol Last Admin: 02/05/18 12:01 Dose: 100 mls/hr Metronidazole (Flagyl) 500 mg in 100 mls @ 100 mls/hr IVPB Q8H [facility] PRN Reason: Protocol Last Admin: 02/05/18 17:23 Dose: 100 mls/hr Insulin Human Regular (Novolin R) 0 unit SC ACHS [facility] PRN Reason: Protocol Last Admin: 02/05/18 16:30 Dose: 2 units Lactobacillus Acidophilus (Bacid Acidophilus) 1 cap PO BID [facility] Last Admin: 02/05/18 17:19 Dose: 1 cap Lisinopril (Zestril) 20 mg PO DAILY [facility] Last Admin: 02/05/18 10:27 Dose: 20 mg Metformin HCl (Glucophage) 1,000 mg PO BID [facility] Last Admin: 02/05/18 17:19 Dose: 1,000 mg Metoprolol Tartrate (Lopressor) 25 mg PO BID [facility] Last Admin: 02/05/18 17:19 Dose: 25 mg - Labs Labs: 02/03/18 07:37 02/03/18 07:37
[2018-02-06] MEDS: metroNIDAZOLE IV 500 mg/100 ml 500 MG/100 ML BAG IVPB SCH ×3 (02:04→17:43)
--- NOTE | 2018-02-06 08:11 | CP.PCM.PN ---
Subjective - Date & Time of Evaluation Date of Evaluation: 02/06/18 Time of Evaluation: 08:08 - Subjective Subjective: General Surgery Progress Note for Dr. Sanders 42M seen and evaluated this morning at bedside. No acute events overnight. No complaints of pain at or near the incision and drainage site. Expresses his desire to go home. Denies f/c, n/v/d, SOB, CP. Objective - Vital Signs/Intake and Output Vital Signs (last 24 hours): Temp Pulse Resp BP Pulse Ox 98.5 F 70 20 138/83 99 02/06/18 08:00 02/06/18 08:00 02/06/18 08:00 02/06/18 08:00 02/06/18 08:00 Intake and Output: 02/06/18 02/06/18 06:59 18:59 Intake Total 920 Balance 920 - Medications Medications: Current Medications Amlodipine Besylate (Norvasc) 5 mg PO DAILY [facility] Last Admin: 02/05/18 10:22 Dose: 5 mg Enoxaparin Sodium (Lovenox) 40 mg SC DAILY [facility] Last Admin: 02/05/18 10:23 Dose: 40 mg Folic Acid (Folic Acid) 1 mg PO DAILY [facility] Last Admin: 02/05/18 10:22 Dose: 1 mg Cefazolin Sodium 2,000 mg/ (Sodium Chloride) 50 mls @ 100 mls/hr IVPB Q8H [facility] PR[facility] Reason: Protocol Last Admin: 02/06/18 03:05 Dose: 100 mls/hr Metronidazole (Flagyl) 500 mg in 100 mls @ 100 mls/hr IVPB Q8H [facility] PRN Reason: Protocol Last Admin: 02/06/18 02:04 Dose: 100 mls/hr Insulin Human Regular (Novolin R) 0 unit SC ACHS [facility] PRN Reason: Protocol Last Admin: 02/05/18 21:56 Dose: Not Given Lactobacillus Acidophilus (Bacid Acidophilus) 1 cap PO BID [facility] Last Admin: 02/05/18 17:19 Dose: 1 cap Lisinopril (Zestril) 20 mg PO DAILY [facility] Last Admin: 02/05/18 10:27 Dose: 20 mg Metformin HCl (Glucophage) 1,000 mg PO BID [facility] Last Admin: 02/05/18 17:19 Dose: 1,000 mg Metoprolol Tartrate (Lopressor) 25 mg PO BID [facility] Last Admin: 02/05/18 17:19 Dose: 25 mg - Labs Labs: 02/03/18 07:37 02/03/18 07:37 - Constitutional Appears: Non-toxic, No Acute Distress - Head Exam Head Exam: ATRAUMATIC, NORMOCEPHALIC - Eye Exam Eye Exam: EOMI, Normal appearance - Respiratory Exam Respiratory Exam: Clear to Ausculation Bilateral, NORMAL BREATHING PATTERN - Cardiovascular Exam Cardiovascular Exam: REGULAR RHYTHM, +S1, +S2 - GI/Abdominal Exam GI & Abdominal Exam: Soft, Normal Bowel Sounds. absent: Tenderness - Neurological Exam Neurological Exam: Alert, Awake, Oriented x3 - Psychiatric Exam Psychiatric exam: Normal Affect, Normal Mood - Skin Additional comments: left abdominal dressing c/d/i minimal erythema and drainage, no edematous Assessment and Plan - Assessment and Plan (Free Text) Plan: 42M w/ abdominal wall abscess, s/p I&D, POD#5 Plan: local wound care: daily dressing changes, change if dressing is saturated Tylenol/Advil for pain wound Cx: Beta hemolytic strep - recommend out pt abx for 1 week, will defer to primary pt to follow up with Dr. Sanders in 1-2 weeks clear from a surgical standpoint further recs per Dr. Marilyn Pereira PGY1
[2018-02-06] MEDS: Enoxaparin 40 mg Syringe SC SCH ×2 (08:38→09:19)
[2018-02-06] MEDS: Lactobacillus Acidophilus 500 MU Cap PO SCH ×3 (08:38→22:15)
[2018-02-06] MEDS: (Novolin R) Insulin Human Regular 100 units/ml vial SC SCH ×4 (08:40→22:15)
--- NOTE | 2018-02-06 22:27 | CP.PCM.PN ---
Subjective - Date & Time of Evaluation Date of Evaluation: 02/06/18 Time of Evaluation: 22:26 - Subjective Subjective: pt isPatient is currently feeling well. The abdominal wound is better. No chest pain or shortness of breath Vital signs reviewed in Clinical examination is unremarkable glucose is much controlled I discussed with infectious diseases. Patient will be receiving antibiotic few more days of antibiotic. He will be discharged home with the intravenous IV antibiotic. Final diagnoses acute cellulitis involving the abdominal wall, fasciitis. Status post incision and drainage. Uncontrolled diabetes hypertension and hypercholesteremia Objective - Vital Signs/Intake and Output Vital Signs (last 24 hours): Temp Pulse Resp BP Pulse Ox 98.4 F 66 20 116/72 96 02/06/18 16:26 02/06/18 16:26 02/06/18 16:26 02/06/18 17:44 02/06/18 16:26 - Medications Medications: Current Medications Amlodipine Besylate (Norvasc) 5 mg PO DAILY [facility] Last Admin: 02/06/18 09:19 Dose: Not Given Enoxaparin Sodium (Lovenox) 40 mg SC DAILY [facility] Last Admin: 02/06/18 09:19 Dose: Not Given Folic Acid (Folic Acid) 1 mg PO DAILY [facility] Last Admin: 02/06/18 09:18 Dose: Not Given Cefazolin Sodium 2,000 mg/ (Sodium Chloride) 50 mls @ 100 mls/hr IVPB Q8H [facility] PRN Reason: Protocol Last Admin: 02/06/18 19:06 Dose: 100 mls/hr Metronidazole (Flagyl) 500 mg in 100 mls @ 100 mls/hr IVPB Q8H [facility] PRN Reason: Protocol Last Admin: 02/06/18 17:43 Dose: 100 mls/hr Insulin Human Regular (Novolin R) 0 unit SC ACHS [facility] PRN Reason: Protocol Last Admin: 02/06/18 22:15 Dose: Not Given Lactobacillus Acidophilus (Bacid Acidophilus) 1 cap PO BID [facility] Last Admin: 02/06/18 22:15 Dose: 1 cap Lisinopril (Zestril) 20 mg PO DAILY [facility] Last Admin: 02/06/18 09:19 Dose: Not Given Metformin HCl (Glucophage) 1,000 mg PO BID [facility] Last Admin: 02/06/18 17:43 Dose: 1,000 mg Metoprolol Tartrate (Lopressor) 25 mg PO BID [facility] Last Admin: 02/06/18 17:44 Dose: 25 mg - Labs Labs: 02/03/18 07:37 02/03/18 07:37
[2018-02-07] MEDS: metroNIDAZOLE IV 500 mg/100 ml 500 MG/100 ML BAG IVPB SCH ×3 (02:58→17:33)
[2018-02-07] MEDS: (Novolin R) Insulin Human Regular 100 units/ml vial SC SCH ×4 (08:00→21:41)
[2018-02-07] MEDS: Lactobacillus Acidophilus 500 MU Cap PO SCH ×3 (08:09→17:23)
[2018-02-07] MEDS: Enoxaparin 40 mg Syringe SC SCH ×2 (08:10→10:46)
[2018-02-07 08:28] LABS: BASO % 0.3 % (0.0-2.0); EOS # 0.1 K/uL (0.0-0.7); EOS % 1.6 % (0.0-4.0); HEMOGLOBIN 12.9 g/dL (12.0-18.0); LYMPH # 2.3 K/uL (1.0-4.3); LYMPH % 32.8 % (20.0-40.0); MEAN CELL VOLUME 84.5 fL (80.0-94.0); MEAN CORPUSCULAR HEMOGLOBIN 28.9 pg (27.0-31.0); MEAN CORPUSCULAR HGB CONC 34.2 g/dL (33.0-37.0); MEAN PLATELET VOLUME 10.2 fL (7.2-11.7); MONO # 0.6 K/uL (0.0-0.8); MONO % 8.4 % (0.0-10.0); NEUT % 56.9 % (50.0-75.0); RBC 4.46 Mil/uL (4.40-5.90); RED CELL DISTRIBUTION WIDTH 12.7 % (11.5-14.5)
[2018-02-07 08:59] LABS: ALB/GLOB RATIO 1.5 (1.0-2.1); ALBUMIN 4.1 g/dL (3.5-5.0); ALT/SGPT 86 U/L (21-72); AST/SGOT 90 U/L (17-59); BLOOD UREA NITROGEN 14 mg/dL (9-20); CALCIUM 9.2 mg/dl (8.6-10.4); GFR NON-AFRICAN AMERICAN > 60
--- NOTE | 2018-02-07 11:07 | CP.PCM.PN ---
Subjective - Date & Time of Evaluation Date of Evaluation: 02/07/18 Time of Evaluation: 08:30 - Subjective Subjective: General Surgery Progress Note for Dr. Sanders 42M seen and evaluated this morning at bedside. No acute events overnight. No complaints of pain at or near the incision and drainage site. Expresses his desire to go home. Denies f/c, n/v/d, SOB, CP. Objective - Vital Signs/Intake and Output Vital Signs (last 24 hours): Temp Pulse Resp BP Pulse Ox 98.3 F 66 20 137/85 98 02/07/18 07:58 02/07/18 07:58 02/07/18 07:58 02/07/18 08:09 02/07/18 07:58 Intake and Output: 02/07/18 02/07/18 06:59 18:59 Intake Total 1070 Balance 1070 - Medications Medications: Current Medications Amlodipine Besylate (Norvasc) 5 mg PO DAILY [facility] Last Admin: 02/07/18 09:41 Dose: Not Given Enoxaparin Sodium (Lovenox) 40 mg SC DAILY [facility] Last Admin: 02/07/18 10:46 Dose: Not Given Folic Acid (Folic Acid) 1 mg PO DAILY [facility] Last Admin: 02/07/18 10:46 Dose: Not Given Cefazolin Sodium 2,000 mg/ (Sodium Chloride) 50 mls @ 100 mls/hr IVPB Q8H [facility] PRN Reason: Protocol Last Admin: 02/07/18 10:47 Dose: 100 mls/hr Metronidazole (Flagyl) 500 mg in 100 mls @ 100 mls/hr IVPB Q8H [facility] PRN Reason: Protocol Last Admin: 02/07/18 09:36 Dose: 100 mls/hr Insulin Human Regular (Novolin R) 0 unit SC ACHS [facility] PRN Reason: Protocol Last Admin: 02/07/18 08:00 Dose: 2 units Lactobacillus Acidophilus (Bacid Acidophilus) 1 cap PO BID [facility] Last Admin: 02/07/18 10:46 Dose: Not Given Lisinopril (Zestril) 20 mg PO DAILY [facility] Last Admin: 02/07/18 09:41 Dose: Not Given Metformin HCl (Glucophage) 1,000 mg PO BID [facility] Last Admin: 02/07/18 10:46 Dose: Not Given Metoprolol Tartrate (Lopressor) 25 mg PO BID [facility] Last Admin: 02/07/18 10:46 Dose: Not Given - Labs Labs: 02/07/18 08:20 02/07/18 08:20 - Constitutional Appears: Non-toxic, No Acute Distress - Head Exam Head Exam: ATRAUMATIC, NORMOCEPHALIC - Eye Exam Eye Exam: EOMI, Normal appearance - ENT Exam ENT Exam: Mucous Membranes Moist, Normal Exam - Respiratory Exam Respiratory Exam: Clear to Ausculation Bilateral, NORMAL BREATHING PATTERN. absent: Rales, Rhonchi - Cardiovascular Exam Cardiovascular Exam: REGULAR RHYTHM, +S1, +S2. absent: Murmur - GI/Abdominal Exam GI & Abdominal Exam: Soft, Normal Bowel Sounds. absent: Tenderness - Neurological Exam Neurological Exam: Alert, Awake, Oriented x3 - Psychiatric Exam Psychiatric exam: Normal Affect, Normal Mood - Skin Skin Exam: Dry, Intact, Normal Color, Warm Additional comments: left abdominal dressing c/d/i minimal erythema and drainage, no edematous Assessment and Plan - Assessment and Plan (Free Text) Plan: Assessment: 42M w/ abdominal wall abscess, s/p I&D, POD#5 Plan: local wound care: daily dressing changes, change if dressing is saturated Tylenol/Advil for pain wound Cx: Beta hemolytic strep - recommend out pt abx for 1 week, will defer to primary pt to follow up with Dr. Sanders in 1-2 weeks clear from a surgical standpoint further recs per Dr. Marilyn Pereira PGY1
--- NOTE | 2018-02-07 17:31 | RAD ---
Date of service: 02/07/2018 HISTORY: verify left PICC COMPARISON: 12/08/2016. FINDINGS: The left PICC line terminates in the SVC. LUNGS: The lungs are well inflated and clear. PLEURA: No significant pleural effusion identified, no pneumothorax apparent. CARDIOVASCULAR: Normal. OSSEOUS STRUCTURES: No significant abnormalities. VISUALIZED UPPER ABDOMEN: Normal. OTHER FINDINGS: None. IMPRESSION: Left PICC line terminates in the SVC. No pneumothorax. Clear lungs.
--- NOTE | 2018-02-07 23:45 | CP.PCM.PN ---
Subjective - Date & Time of Evaluation Date of Evaluation: 02/07/18 Time of Evaluation: 23:45 - Subjective Subjective: pt isPatient is currently feeling well. The abdominal wound is better. No chest pain or shortness of breath Vital signs reviewed in Clinical examination is unremarkable glucose is much controlled I discussed with infectious diseases. Patient will be receiving antibiotic one more days of antibiotic. He will be discharged home with the intravenous IV antibiotic. Final diagnoses acute cellulitis involving the abdominal wall, fasciitis. Status post incision and drainage. Uncontrolled diabetes hypertension and hypercholesteremia Objective - Vital Signs/Intake and Output Vital Signs (last 24 hours): Temp Pulse Resp BP Pulse Ox 98.6 F 73 20 125/84 96 02/07/18 16:00 02/07/18 16:00 02/07/18 16:00 02/07/18 17:23 02/07/18 16:00 - Medications Medications: Current Medications Amlodipine Besylate (Norvasc) 5 mg PO DAILY [facility] Last Admin: 02/07/18 09:41 Dose: Not Given Enoxaparin Sodium (Lovenox) 40 mg SC DAILY [facility] Last Admin: 02/07/18 10:46 Dose: Not Given Folic Acid (Folic Acid) 1 mg PO DAILY [facility] Last Admin: 02/07/18 10:46 Dose: Not Given Cefazolin Sodium 2,000 mg/ (Sodium Chloride) 50 mls @ 100 mls/hr IVPB Q8H [facility] PRN Reason: Protocol Last Admin: 02/07/18 18:41 Dose: 100 mls/hr Metronidazole (Flagyl) 500 mg in 100 mls @ 100 mls/hr IVPB Q8H [facility] PRN Reason: Protocol Last Admin: 02/07/18 17:33 Dose: 100 mls/hr Insulin Human Regular (Novolin R) 0 unit SC ACHS [facility] PRN Reason: Protocol Last Admin: 02/07/18 21:41 Dose: Not Given Lactobacillus Acidophilus (Bacid Acidophilus) 1 cap PO BID [facility] Last Admin: 02/07/18 17:23 Dose: 1 cap Lisinopril (Zestril) 20 mg PO DAILY [facility] Last Admin: 02/07/18 09:41 Dose: Not Given Metformin HCl (Glucophage) 1,000 mg PO BID [facility] Last Admin: 02/07/18 17:23 Dose: 1,000 mg Metoprolol Tartrate (Lopressor) 25 mg PO BID [facility] Last Admin: 02/07/18 17:23 Dose: 25 mg - Labs Labs: 02/07/18 08:20 02/07/18 08:20
[2018-02-08] MEDS: metroNIDAZOLE IV 500 mg/100 ml 500 MG/100 ML BAG IVPB SCH ×3 (01:50→17:33)
[2018-02-08 07:16] LABS: HEMOGLOBIN 11.8 g/dL (12.0-18.0); MEAN CORPUSCULAR HEMOGLOBIN 28.7 pg (27.0-31.0); MEAN CORPUSCULAR HGB CONC 33.8 g/dL (33.0-37.0); MEAN PLATELET VOLUME 10.4 fL (7.2-11.7); RBC 4.12 Mil/uL (4.40-5.90); RED CELL DISTRIBUTION WIDTH 12.6 % (11.5-14.5); WHITE BLOOD COUNT 6.4 K/uL (4.8-10.8)
[2018-02-08 07:32] LABS: ALB/GLOB RATIO 1.3 (1.0-2.1); ALBUMIN 3.6 g/dL (3.5-5.0); ALT/SGPT 84 U/L (21-72); AST/SGOT 75 U/L (17-59); BLOOD UREA NITROGEN 15 mg/dL (9-20); CALCIUM 8.8 mg/dl (8.6-10.4); GFR NON-AFRICAN AMERICAN > 60
[2018-02-08] MEDS: Lactobacillus Acidophilus 500 MU Cap PO SCH ×3 (08:23→17:07)
[2018-02-08] MEDS: Enoxaparin 40 mg Syringe SC SCH ×2 (08:24→10:57)
[2018-02-08] MEDS: (Novolin R) Insulin Human Regular 100 units/ml vial SC SCH ×3 (08:25→17:09)
--- NOTE | 2018-02-08 11:47 | CP.PCM.PN ---
Subjective - Date & Time of Evaluation Date of Evaluation: 02/08/18 Time of Evaluation: 11:47 - Subjective Subjective: Patient is currently feeling well. He has no chest pain or shortness of breath. Yesterday patient had a PICC line. Currently he is awaiting for insurance approval for antibiotic. Once the antibiotic is available patient possibly will be discharged. Patient is clinically stable. He is walking well. No chest pain or shortness of breath. Labs: Elevated blood sugar still noted. Mild elevation of the liver enzymes noted. But it is currently stable compared to yesterday. Current medications: Lisinopril 20 mg daily Metoprolol tartrate 25 mg twice a day Amlodipine 5 mg daily Metformin 1000 mg twice a day. Will add Glucotrol XL 10 mg twice a day. Patient will also benefit taking Januvia 50 mg daily. Antibiotic needs to be adjusted as per ID. We will follow the patient Objective - Vital Signs/Intake and Output Vital Signs (last 24 hours): Temp Pulse Resp BP Pulse Ox 98.5 F 70 20 128/78 97 02/08/18 07:30 02/08/18 07:30 02/08/18 07:30 02/08/18 08:22 02/08/18 07:30 Intake and Output: 02/08/18 02/08/18 06:59 18:59 Intake Total 1300 Balance 1300 - Medications Medications: Current Medications Amlodipine Besylate (Norvasc) 5 mg PO DAILY [facility] Last Admin: 02/08/18 10:58 Dose: Not Given Enoxaparin Sodium (Lovenox) 40 mg SC DAILY [facility] Last Admin: 02/08/18 10:57 Dose: Not Given Folic Acid (Folic Acid) 1 mg PO DAILY [facility] Last Admin: 02/08/18 10:57 Dose: Not Given Cefazolin Sodium 2,000 mg/ (Sodium Chloride) 50 mls @ 100 mls/hr IVPB Q8H [facility] PRN Reason: Protocol Last Admin: 02/08/18 02:58 Dose: 100 mls/hr Metronidazole (Flagyl) 500 mg in 100 mls @ 100 mls/hr IVPB Q8H [facility] PRN Reason: Protocol Last Admin: 02/08/18 10:56 Dose: 100 mls/hr Insulin Human Regular (Novolin R) 0 unit SC ACHS [facility] PRN Reason: Protocol Last Admin: 02/08/18 08:25 Dose: 2 units Lactobacillus Acidophilus (Bacid Acidophilus) 1 cap PO BID [facility] Last Admin: 02/08/18 10:57 Dose: Not Given Lisinopril (Zestril) 20 mg PO DAILY [facility] Last Admin: 02/08/18 10:58 Dose: Not Given Metformin HCl (Glucophage) 1,000 mg PO BID [facility] Last Admin: 02/08/18 10:57 Dose: Not Given Metoprolol Tartrate (Lopressor) 25 mg PO BID [facility] Last Admin: 02/08/18 10:57 Dose: Not Given - Labs Labs: 02/08/18 06:52 02/08/18 06:52
--- NOTE | 2018-02-08 14:53 | CP.PCM.PN ---
Subjective - Date & Time of Evaluation Date of Evaluation: 02/08/18 Time of Evaluation: 15:00 - Subjective Subjective: NPP notes Patient seen today, denies any complaints, doing well . anxious to go home a febrile Objective - Vital Signs/Intake and Output Vital Signs (last 24 hours): Temp Pulse Resp BP Pulse Ox 98.5 F 70 20 128/78 97 02/08/18 07:30 02/08/18 07:30 02/08/18 07:30 02/08/18 08:22 02/08/18 07:30 Intake and Output: 02/08/18 02/08/18 06:59 18:59 Intake Total 1300 500 Balance 1300 500 - Medications Medications: Current Medications Amlodipine Besylate (Norvasc) 5 mg PO DAILY [facility] Last Admin: 02/08/18 10:58 Dose: Not Given Enoxaparin Sodium (Lovenox) 40 mg SC DAILY [facility] Last Admin: 02/08/18 10:57 Dose: Not Given Folic Acid (Folic Acid) 1 mg PO DAILY [facility] Last Admin: 02/08/18 10:57 Dose: Not Given Cefazolin Sodium 2,000 mg/ (Sodium Chloride) 50 mls @ 100 mls/hr IVPB Q8H [facility] PRN Reason: Protocol Last Admin: 02/08/18 11:58 Dose: 100 mls/hr Metronidazole (Flagyl) 500 mg in 100 mls @ 100 mls/hr IVPB Q8H [facility] PRN Reason: Protocol Last Admin: 02/08/18 10:56 Dose: 100 mls/hr Insulin Human Regular (Novolin R) 0 unit SC ACHS [facility] PRN Reason: Protocol Last Admin: 02/08/18 11:59 Dose: 2 units Lactobacillus Acidophilus (Bacid Acidophilus) 1 cap PO BID [facility] Last Admin: 02/08/18 10:57 Dose: Not Given Lisinopril (Zestril) 20 mg PO DAILY [facility] Last Admin: 02/08/18 10:58 Dose: Not Given Metformin HCl (Glucophage) 1,000 mg PO BID [facility] Last Admin: 02/08/18 10:57 Dose: Not Given Metoprolol Tartrate (Lopressor) 25 mg PO BID [facility] Last Admin: 02/08/18 10:57 Dose: Not Given - Labs Labs: 02/08/18 06:52 02/08/18 06:52 Assessment and Plan - Assessment and Plan (Free Text) Assessment: A/P 42 y/o male with phx of DM and asthma with redness and abscess to left lower abdomen s/p I&d of Left Abdominal Wall Abscess, Debridement of skin, subcutaneous tissue , and muscle wall As per Dr. East ID pt needs to continue 10 days of teflaro and flagyl tid x 1o days and labs 2 maci /week s/p PICC line , patient preferred home infusion antibiotics teflaro approved by ins and arranged by CM for home infusion test dose given prior to discharge patient needs to f/u with Dr. Zaldivar office early next week and Dr. Mary munoz all Discharge instructions discussed in details with patient who understands and agrees with plan and RX e prescribed to patient pharmacy
[2018-02-08] MEDS ORDERED: Ceftaroline 600 MG in Sodium Chloride 0.9% 100 ML IVPB ONE (17:00)
[2018-02-08 17:02] VITALS: PULSE 74; TEMP 97.8; O2SAT 99
[2018-02-08 17:08] VITALS: BP 125/83
--- NOTE | 2018-02-08 19:33 | CP.PCM.PN ---
Subjective - Date & Time of Evaluation Date of Evaluation: 02/08/18 Time of Evaluation: 14:28 - Subjective Subjective: INFECTIOUS DISEASE PROGRESS NOTES MUNIZ MD, FACP 3T 365-A 02/08/2018 CHART REVIEWED PT EXAMINED CASE DISCUSSED MONDAY 02/05 WITH PMD, TUESDAY 02/06 WITH SHEETER OPERATOR AND TODAY 02/08/2018 WITH LOGISTICS TECH KARINA Patient is currently feeling well. He has no chest pain or shortness of breath. Yesterday patient had a PICC line. Currently he is awaiting for insurance approval for antibiotic. Once the antibiotic is available patient possibly will be discharged. Patient is clinically stable. He is walking well. No chest pain or shortness of breath. Labs: Elevated blood sugar still noted. Mild elevation of the liver enzymes noted. But it is currently stable compared to yesterday. Current medications: Lisinopril 20 mg daily Metoprolol tartrate 25 mg twice a day Amlodipine 5 mg daily Metformin 1000 mg twice a day. Will add Glucotrol XL 10 mg twice a day. Patient will also benefit taking Januvia 50 mg daily. AntibioticS: TEFLARO 600MG IVPG Q 12HOURS X 10 DAYS AND FLAGYL 500MG PO TID X 10 DAYS: HE MUST FOLLOW UP WITH ME WEEKLY AND HAVE BIWEEKLY LABS ALL SENT TO MY OFFICE. MARIA DIAZ MD, FACP Objective - Vital Signs/Intake and Output Vital Signs (last 24 hours): Temp Pulse Resp BP Pulse Ox 97.8 F 74 20 125/83 99 02/08/18 17:01 02/08/18 17:01 02/08/18 17:01 02/08/18 17:07 02/08/18 17:01 Intake and Output: 02/08/18 02/09/18 18:59 06:59 Intake Total 500 Balance 500 - Medications Medications: Current Medications Amlodipine Besylate (Norvasc) 5 mg PO DAILY [facility] Last Admin: 02/08/18 10:58 Dose: Not Given Enoxaparin Sodium (Lovenox) 40 mg SC DAILY [facility] Last Admin: 02/08/18 10:57 Dose: Not Given Folic Acid (Folic Acid) 1 mg PO DAILY [facility] Last Admin: 02/08/18 10:57 Dose: Not Given Cefazolin Sodium 2,000 mg/ (Sodium Chloride) 50 mls @ 100 mls/hr IVPB Q8H [facility] PRN Reason: Protocol Last Admin: 02/08/18 11:58 Dose: 100 mls/hr Metronidazole (Flagyl) 500 mg in 100 mls @ 100 mls/hr IVPB Q8H [facility] PRN Reason: Protocol Last Admin: 02/08/18 17:33 Dose: 100 mls/hr Insulin Human Regular (Novolin R) 0 unit SC ACHS [facility] PRN Reason: Protocol Last Admin: 02/08/18 17:09 Dose: 2 units Lactobacillus Acidophilus (Bacid Acidophilus) 1 cap PO BID [facility] Last Admin: 02/08/18 17:07 Dose: 1 cap Lisinopril (Zestril) 20 mg PO DAILY [facility] Last Admin: 02/08/18 10:58 Dose: Not Given Metformin HCl (Glucophage) 1,000 mg PO BID [facility] Last Admin: 02/08/18 17:52 Dose: 1,000 mg Metoprolol Tartrate (Lopressor) 25 mg PO BID [facility] Last Admin: 02/08/18 17:07 Dose: 25 mg - Labs Labs: 02/08/18 06:52 02/08/18 06:52 Assessment and Plan (1) Abscess of abdominal wall Status: Acute (2) Cellulitis of left abdominal wall Status: Acute (3) Uncontrolled diabetes mellitus Status: Acute (4) Encounter for postoperative wound care Status: Acute
--- NOTE | 2018-03-13 07:29 | DS ---
Copied To: Brando Hernandez MD Attending MD: Brando Hernandez MD DATE OF ADMISSION: 02/01/2018 HISTORY: A 42-year-old male with a history of hypertension, diabetes, hypercholesterolemia, admitted to the intensive care unit in 2017 with acute empyema and pneumonia. The patient improved markedly, but he was having uncontrolled diabetes which was not being treated as good as an outpatient. He came to the emergency room with acute swelling and also abdominal pain over the left lower quadrant region. The patient initially upon admission had normal white count but elevated blood sugar. The patient was having very large indurated, unhealthy erythematous and unhealthy base of ulcer in the left side of the umbilicus involving the soft tissue and the skin. Immediately, surgical evaluation and ID evaluation were called in. The patient underwent incisional drainage of the abdominal wall cellulitis. The patient started on intravenous empirical antibiotic. The patient was placed on isolation. He was closely monitored with glucose and monitoring the glucose control. Cultures were showing evidence of beta-hemolytic streptococcus as well as Streptococcus aureus. The patient initially treated on imipenem. Slowly, his condition got better. There was a significant improvement in the ulcer noted, but the patient still needs to have antibiotic. The patient was placed on home visiting nurse and wound care management. The discussion was made with the patient regarding the care of the wound. FINAL DIAGNOSES: Acute necrotizing fasciitis involving the abdominal wall involving the multiorgan sepsis, cellulitis, uncontrolled diabetes. The patient will be discharged home with Teflaro 600 mg intravenously twice a day, Flagyl 500 mg three times a day. Also, he will continue lisinopril 20 mg daily, metoprolol tartrate 25 mg twice a day, amlodipine 5 mg daily, Glucotrol XL 10 mg daily, Januvia 50 mg daily. He will follow up as an outpatient. Brando Hernandez MD
== END 2018-02-08 19:36 | disposition home or self-care (01) | DRG 853 ==
LOC: C.ER 07:17 → C.9E 08:27 → C.3T 08:58 → OBSVTOIN 02-05 12:19 → C.3T 02-07 18:49
PROVIDERS: ADMIT Internal Medicine; ATTEND Internal Medicine
PROC: 0W9F0ZZ Drainage of Abdominal Wall, Open Approach (ICD-10-PCS; 2018-02-01)
PROC: 0JB80ZZ Excision of Abdomen Subcutaneous Tissue and Fascia, Open Approach (ICD-10-PCS; principal; 2018-02-01 10:00)
PROC: 02HV33Z Insertion of Infusion Device into Superior Vena Cava, Percutaneous Approach (ICD-10-PCS; 2018-02-07)
DX: A41.9 Sepsis, unspecified organism (principal); M72.6 Necrotizing fasciitis; L03.311 Cellulitis of abdominal wall; L02.211 Cutaneous abscess of abdominal wall; N49.3 Fournier gangrene; E11.65 Type 2 diabetes mellitus with hyperglycemia; R65.20 Severe sepsis without septic shock; B95.1 Streptococcus, group B, as the cause of diseases classified elsewhere; B95.61 Methicillin susceptible Staphylococcus aureus infection as the cause of diseases classified elsewhere; I10 Essential (primary) hypertension; J45.909 Unspecified asthma, uncomplicated; E78.00 Pure hypercholesterolemia, unspecified; R74.8 Abnormal levels of other serum enzymes; R06.89 Other abnormalities of breathing; Z87.01 Personal history of pneumonia (recurrent); Z23 Encounter for immunization; Z79.84 Long term (current) use of oral hypoglycemic drugs

== ENCOUNTER 2018-07-20 18:11 | Outpatient (CLI) | payer BC | END 2018-07-20 18:12 | disposition home or self-care (01) | LOC: C.SLEEP 18:12 | DX: G47.33 Obstructive sleep apnea (adult) (pediatric) (principal) ==